=== PATIENT | male | born 1965 | race Hispanic/Latino ===

== ENCOUNTER 2019-05-19 10:48 | Inpatient (IN) | payer MEDICARE ==
[~2019-05-19] VITALS: Ht 165.1 cm; Wt 108.5 kg
[2019-05-19] VITALS (10 sets, daily range): BP systolic 94–112; BP diastolic 48–91
--- OUTSIDE RECORDS SUMMARY | 2019-05-19 10:54 | XMS REPORT | Continuity of Care Document ---
Author Author [employer] Organization [employer] Address Unknown Phone Unavailable Care Team Providers Care Internal Affairs Commander Name Role Phone [employer] Unavailable Unavailable Problems Problem Status Onset Date Classification Date Reported Comments Source FOOT PAIN Active 01/20/[address] [facility] SEPSIS,CELLULITIS,TYPE II DIABETES MELLI Active 01/20/[address] [facility] DEHYDRATION, DIABETIC KETOSIS, DIABETIC Active 09/14/[address] [facility] VOMITING Active 09/14/[address] [facility] RIGHT FOOT-STUMP INFECTION, R/O SPESIS Active 06/16/[address] [facility] ABSCESS Active 06/16/[address] [facility] INJURY IN LEFT SHOULDER Active 02/21/[address] [facility] R DIABETIC FOOT ULCER Active 02/21/[address] [facility] Discharge Diagnosis: Ankle sprain 12/28/2015 01/01/[address] [facility] ACUTE FOOT INFECTION Active 04/26/[address] [facility] FOOT OSTEOMYLITIS Active 04/09/[address] [facility] RIGHT FOOT CELLULITIS AND OSTEOMVELITIS Active 04/01/[address] [facility] INFECTION RIGHT FOOT Active 04/01/[address] [facility] OSTEROMYELITIS Active 02/06/[address] [facility] MRSA1, 2, 3 Active 01/31/2013 Problem 02/02/2017 04/20/14 ongoing ulceration of a right foot wound. MRSA from the abscess on the Right foot Problem added by Discern Expert. [facility] MRSA1, 2 Active 01/31/2013 Problem 03/11/2013 1MRSA from the abscess on the Right foot 2Problem added by Discern Expert. [facility] DIABETIC FOOT Active 01/28/[address] [facility] CUT ON FOOT Active 01/28/[address] [facility] Diabetes Resolved Problem 05/06/[address] [facility] Pseudomonas4 Active Problem 02/02/2017 Problem added by Discern Expert. [facility] Diabetes Active Problem 02/02/[address] [facility] Hypertension Resolved Problem 02/02/[address] [facility] Diabetic foot ulcer Active Diagnosis 03/08/2017 [id number] Osteomyelitis of left foot, unspecified type Active Diagnosis 03/08/2017 [id number] BENIGN HTN Active Problem 03/08/2017 [id number] MSSA Active Diagnosis 03/08/2017 [id number] PVD Active Diagnosis 03/08/2017 [id number] Rash Active Diagnosis 03/08/2017 [id number] Ulcer of other part of foot Active Problem 10/14/2015 [facility] Diabetes II with Neuropathy Active Problem 10/14/2015 [facility] Diabetes II with PVD Active Problem 10/14/2015 [facility] Abscess - Foot/Heel Active Problem 10/14/2015 [facility] Type 2 diabetes mellitus with diabetic peripheral angiopathy without gangrene Active Problem 10/14/2015 [facility] Type 2 diabetes mellitus with diabetic polyneuropathy Active Problem 10/14/2015 [facility] Type 2 diabetes mellitus with foot ulcer Active Problem 10/14/2015 [facility] Abscess of foot without toes, right Active Problem 10/14/2015 [facility] Osteomyelitis - Acute Active Problem 10/14/2015 [facility] Amputation at midfoot, right, subsequent encounter Active Problem 10/14/2015 [facility] Foot ulceration, right, with fat layer exposed Active Problem 10/14/2015 [facility] Obesity Morbid Active Diagnosis 06/08/2015 Ayla Fletcher S/P transmetatarsal amputation of foot Active Diagnosis 06/08/2015 Ayla Fletcher Body Mass Index 50.0-59.9, adult Active Diagnosis 06/08/2015 Ayla Fletcher Diabetes with peripheral circulatory disorders, type II or unspecified type, uncontrolled Active Problem 06/08/2015 Ayla Fletcher Osteomyelitis due to secondary diabetes Active Problem 06/08/2015 Ayla Fletcher ULCER OF LOWER LIMB NOS Active [facility] CELLULITIS OF FOOT Active [facility] TYPE 2 DIABETES MELLITUS WITH FOOT ULCER Active [facility] INFECTION OF OTHER EXTERNAL STOMA OF URI Active [facility] DEHYDRATION Active [facility] SEPSIS, UNSPECIFIED ORGANISM Active [facility] CELLULITIS, UNSPECIFIED Active [facility] Medications Medication Details Route Status Patient Instructions Ordering Provider Order Date Source Triamcinolone Acetonide 1 application to affected area Externally Active 0.1 % Externally Twice a day Hasan 02/28/2017 [id number] PredniSONE 1 tablet Orally Active 50 MG Orally Once a day Hasan 02/28/2017 [id number] Doxycycline Hyclate 1 capsule Orally Active 100 MG Orally every 12 hrs Hasan 02/14/2017 [id number] cefTRIAXone 2 g injection 2 gm, IV, Q24H, X 18 day, # 18 bag, 0 Refill(s), other Active 01/30/[address] [facility] insulin isophane (NPH) 100 units/mL human recombinant subcutaneous suspension 30 unit, SUB-Q, BID, # 20 mL, 3 Refill(s) Active 01/29/[address] [facility] Metformin hydrochloride 1000 MG Oral Tablet 1,000 mg, PO, BID, # 180 tab, 3 Refill(s) Active 01/29/[address] [facility] Acetaminophen 300 MG / Codeine Phosphate 30 MG Oral Tablet [Tylenol with Codeine #3] 1 tab, PO, Q6H, PRN Pain, X 5 day, # 20 tab, 0 Refill(s) Active 01/29/[address] [facility] Ceftriaxone 2 gm, Route: IVPB, [id number], Dosing Weight 116.932, kg, Start date: 01/26/17 17:00:00 CDT, Duration: 21 day, Stop date: 02/15/17 17:00:00 CDTNotes: (Same As: Rocephin). Use with 100 mL NS and infuse over 30 min MEDICATION WASTE Product Size: 2000 mg Product Wasted: ___ mg No Longer Active 01/26/[address] [facility] Streptococcus pneumoniae serotype 1 capsular antigen diphtheria [id number] protein conjugate vaccine / Streptococcus pneumoniae serotype 14 capsular antigen diphtheria [id number] protein conjugate vaccine / Streptococcus pneumoniae serotype 18C capsular antigen d 0.5 mL, Route: IM, Drug Form: INJ, Daily, Start date: 01/25/17 9:00:00 CDT, Stop date: 01/25/17 15:00:00 CDTNotes: Lightly roll vial (DO NOT SHAKE) before administration. (Same as: Prevnikki 13) Inactive 01/25/[address] [facility] Promethazine 6.25 mg, Route: IVPB, ONCE, Dosing Weight 116.932, kg, PRN Nausea & Vomiting, Start date: 01/24/17 9:14:00 CDT Inactive 01/24/[address] [facility] Ondansetron 4 mg, Route: IVP, ONCE, Dosing Weight 116.932, kg, PRN Nausea & Vomiting, Start date: 01/24/17 9:14:00 CDT Inactive 01/24/[address] [facility] Diphenhydramine 12.5 mg, Route: IVP, Drug form: INJ, Q6H, Dosing Weight 116.932, kg, PRN Itching, Start date: 01/24/17 9:14:00 CDT, Duration: 30 day, Stop date: 02/23/17 9:13:00 CDT Inactive 01/24/[address] [facility] Albuterol 0.83 MG/ML Inhalant Solution 2.49 mg, Route: NEB, Q20Min, Dosing Weight 116.932, kg, PRN Wheezing, Priority: STAT, Start date: 01/24/17 9:14:00 CDT, Duration: 30 day, Stop date: 02/23/17 9:13:00 CDT Inactive 01/24/[address] [facility] Naloxone 0.4 mg, Route: IVP, Q2MIN, Dosing Weight 116.932, kg, PRN Narcotic Reversal, Start date: 01/24/17 9:14:00 CDT, Duration: 8 doses or times, Stop date: Limited # of times Inactive 01/24/[address] [facility] Meperidine 12.5 mg, Route: IVP, Q30Min, Dosing Weight 116.932, kg, PRN Other -See Comment, For shivering, Start date: 01/24/17 9:14:00 CDT, Duration: 2 doses or times, Stop date: Limited # of times Inactive 01/24/[address] [facility] esmolol 10 mg, Route: IVP, Q5Min, Dosing Weight 116.932, kg, PRN Other -See Comment, Start date: 01/24/17 9:14:00 CDT, Duration: 5 doses or times, Stop date: Limited # of times Inactive 01/24/[address] [facility] Labetalol 10 mg, Route: IVP, Q5Min, Dosing Weight 116.932, kg, PRN Elevated BP, Start date: 01/24/17 9:14:00 CDT, Duration: 5 doses or times, Stop date: Limited # of times Inactive 01/24/[address] [facility] Oxycodone 5 mg, Route: PO, Drug form: TAB, Q4H, Dosing Weight 116.932, kg, PRN Pain Score 4-6, Start date: 01/24/17 9:14:00 CDT, Duration: 30 day, Stop date: 02/23/17 9:13:00 CDT Inactive 01/24/[address] [facility] Acetaminophen 1,000 mg, Route: PO, Drug form: TAB, ONCE, Dosing Weight 116.932, kg, PRN Pain Score 1-3, Start date: 01/24/17 9:14:00 CDT, Duration: 1 doses or times, Stop date: Limited # of times Inactive 01/24/[address] [facility] Hydromorphone 0.5 mg, Route: IVP, Q5Min, Dosing Weight 116.932, kg, PRN Pain Score 7-10, Start date: 01/24/17 9:14:00 CDT, Duration: 4 doses or times, Stop date: Limited # of times Inactive 01/24/[address] [facility] Flumazenil 0.2 mg, Route: IVP, PRN, Dosing Weight 116.932, kg, PRN Benzodiazepine Reversal, Initial dose, Start date: 01/24/17 9:14:00 CDT, Duration: 30 day, Stop date: 02/23/17 9:13:00 CDT Inactive 01/24/[address] [facility] Hydralazine 10 mg, Route: IVP, Q20Min, Dosing Weight 116.932, kg, PRN Elevated BP, Start date: 01/24/17 9:14:00 CDT, Duration: 2 doses or times, Stop date: Limited # of times Inactive 01/24/[address] [facility] Calcium Chloride 0.0014 MEQ/ML / Potassium Chloride 0.004 MEQ/ML / Sodium Chloride 0.103 MEQ/ML / Sodium Lactate 0.028 MEQ/ML Injectable Solution 1,000 mL, Rate: 125 ml/hr, Infuse over: 8 hr, Route: IV, Dosing Weight 116.932 kg, Total Volume: 1,000, Start date: 01/24/17 9:14:00 CDT, Duration: 30 day, Stop date: 02/23/17 9:13:00 CDT Inactive 01/24/[address] [facility] diphenhydrAMINE (ANES) Route: IV, Drug form: INJ, ONCE, Stop date: 01/24/17 9:06:00 CDT Inactive 01/24/[address] [facility] fentaNYL (ANES) Route: IV, Drug form: INJ, ONCE, Stop date: 01/24/17 9:01:00 CDT Inactive 01/24/[address] [facility] famotidine (ANES) Route: IV, Drug form: INJ, ONCE, Stop date: 01/24/17 9:01:00 CDT Inactive 01/24/[address] [facility] metoclopramide (ANES) Route: IV, Drug form: INJ, ONCE, Stop date: 01/24/17 9:01:00 CDT Inactive 01/24/[address] [facility] ondansetron (ANES) Route: IV, Drug form: INJ, ONCE, Stop date: 01/24/17 9:01:00 CDT Inactive 01/24/[address] [facility] insulin, isophane 30 unit, 0.3 mL, Route: SUB-Q, Drug form: INJ, BID, Dosing Weight 113.636, kg, Start date: 01/24/17 9:00:00 CDT, Duration: 30 day, Stop date: 02/22/17 17:00:00 CDTNotes: Roll in palms of hands gently; Do not shake vigorously. (Same as: NovoLIN N, Humulin N) Do not hold insulin without contacting prescriber "single patient use only" WASTE: F/P - Black; E - Municipal Trash Bin Stable for 14 days at room temperature Expires in days from Date No Longer Active 01/24/[address] [facility] midazolam (ANES) Route: IV, Drug form: SOLN, ONCE, Stop date: 01/24/17 8:46:00 CDT Inactive 01/24/[address] [facility] Insulin regular 3 unit, Route: IVP, ONCE, Dosing Weight 116.932, kg, Start date: 01/24/17 7:48:00 CDT, Stop date: 01/24/17 7:48:00 CDT Inactive 01/24/[address] [facility] Albuterol 0.833 MG/ML / Ipratropium [place] 0.167 MG/ML Inhalant Solution 3 mL, Route: NEB, Dosing Weight 116.932, kg, ONCE, STAT, Start date: 01/24/17 7:23:00 CDT, Stop date: 01/24/17 7:23:00 CDT Inactive 01/24/[address] [facility] Calcium Chloride 0.0014 MEQ/ML / Potassium Chloride 0.004 MEQ/ML / Sodium Chloride 0.103 MEQ/ML / Sodium Lactate 0.028 MEQ/ML Injectable Solution 1,000 mL, Rate: 25 ml/hr, Infuse over: 40 hr, Route: IV, Dosing Weight 116.932 kg, Total Volume: 1,000, Start date: 01/24/17 7:23:00 CDT, Duration: 30 day, Stop date: 02/23/17 7:22:00 CDT Inactive 01/24/[address] [facility] LR 1000 mL INJ (ANES) Route: IV, Total Volume: 1,000, Start date: 01/24/17 7:15:00 CDT, Stop date: 01/24/17 8:15:00 CDT Inactive 01/24/[address] [facility] Insulin regular 3 unit, Route: IVP, ONCE, Dosing Weight 116.932, kg, Start date: 01/24/17 7:12:00 CDT, Stop date: 01/24/17 7:12:00 CDT Inactive 01/24/[address] [facility] insulin, isophane 25 unit, 0.25 mL, Route: SUB-Q, Drug form: INJ, BID, Dosing Weight 113.636, kg, Start date: 01/21/17 17:00:00 CDT, Duration: 30 day, Stop date: 02/20/17 9:00:00 CDTNotes: Roll in palms of hands gently; Do not shake vigorously. (Same as: NovoLIN N, Humulin N) Do not hold insulin without contacting prescriber "single patient use only" WASTE: F/P - Black; E - Municipal Trash Bin Stable for 14 days at room temperature Expires in days from Date No Longer Active 01/21/[address] [facility] Insulin, Aspart, Human 4 unit, 0.04 mL, Route: SUB-Q, Drug form: SOLN, Bedtime, Dosing Weight 116.932, kg, PRN Blood Glucose Results, Start date: 01/21/17 10:37:00 CDT, Duration: 30 day, Stop date: 02/20/17 10:36:00 CDTNotes: Roll in palms of hands gently; Do not shake vigorously. (Same as: NovoLOG) "single patient use only" WASTE: F/P - Black; E - Municipal Trash Bin Stable for 28 days at room temperature. Expires in days from Date No Longer Active 01/21/[address] [facility] Dextrose 50% Syringe 25 gm, 50 mL, Route: IVP, Drug Form: INJ, Dosing Weight 116.932, kg, PRN, PRN Blood Glucose Results, Start date: 01/21/17 10:37:00 CDT, Duration: 30 day, Stop date: 02/20/17 10:36:00 CDT No Longer Active 01/21/[address] [facility] Glucagon 1 mg, Route: IM, Drug form: PDR/INJ, PRN, Dosing Weight 116.932, kg, PRN Blood Glucose Results, Start date: 01/21/17 10:37:00 CDT, Duration: 30 day, Stop date: 02/20/17 10:36:00 CDT No Longer Active 01/21/[address] [facility] insulin, isophane 10 unit, 0.1 mL, Route: SUB-Q, Drug form: INJ, BID, Dosing Weight 113.636, kg, Start date: 01/21/17 9:00:00 CDT, Duration: 30 day, Stop date: 02/19/17 17:00:00 CDTNotes: Roll in palms of hands gently; Do not shake vigorously. (Same as: NovoLIN N, Humulin N) Do not hold insulin without contacting prescriber "single patient use only" WASTE: F/P - Black; E - Municipal Trash Bin Stable for 14 days at room temperature Expires in days from Date Inactive 01/21/[address] [facility] pneumococcal capsular polysaccharide type 1 vaccine / pneumococcal capsular polysaccharide type 10A vaccine / pneumococcal capsular polysaccharide type 11A vaccine / pneumococcal capsular polysaccharide type 12F vaccine / pneumococcal capsular polysacchar 0.5 mL, Route: IM, Daily, Start date: 01/21/17 9:00:00 CDT, Duration: 1 doses or times, Stop date: 01/21/17 9:00:00 CDT No Longer Active 01/21/[address] [facility] Amlodipine 10 mg, 2 tab, Route: PO, Drug form: TAB, Daily, Dosing Weight 113.636, kg, Start date: 01/21/17 9:00:00 CDT, Duration: 30 day, Stop date: 02/19/17 9:00:00 CDTNotes: (Same as: Norvasc) No Longer Active 01/21/[address] [facility] Clindamycin 600 mg, 50 mL, Route: IVPB, Drug form: INJ, [id number], Dosing Weight 116.932, kg, Start date: 01/20/17 22:00:00 [employer], Duration: 30 day, Stop date: 02/19/17 14:00:00 CDT No Longer Active 01/21/[address] [facility] Lovenox 40 mg, 0.4 mL, Route: SUB-Q, Drug form: INJ, [id number], Dosing Weight 113.636, kg, Start date: 01/20/17 19:00:00 [employer], Duration: 30 day, Stop date: 02/18/17 19:00:00 CDTNotes: (Same as: Lovenox) No Longer Active 01/21/[address] [facility] cefepime 1 gm, Route: IVPB, [id number], Dosing Weight 113.636, kg, (CrCl >/=50 ml/min), Start date: 01/20/17 19:00:00 [employer], Duration: 30 day, Stop date: 02/19/17 11:00:00 CDTNotes: (Same As: Maxipime) MEDICATION WASTE Product Size: 1000 mg Product Wasted: ___ mg Inactive 01/21/[address] [facility] sodium chloride 0.9% 1000 ml INJ 1,000 mL 1,000 mL, Rate: 100 ml/hr, Infuse over: 10 hr, Route: IV, Dosing Weight 113.636 kg, Total Volume: 1,000, Start date: 01/20/17 18:26:00 [employer], Duration: 30 day, Stop date: 02/19/17 18:25:00 CDT No Longer Active 01/21/[address] [facility] Insulin, Aspart, Human 2 unit, 0.02 mL, Route: SUB-Q, Drug form: SOLN, TID-Before Meals, Dosing Weight 113.636, kg, PRN Blood Glucose Results, Start date: 01/20/17 18:25:00 [employer], Duration: 30 day, Stop date: 02/19/17 18:24:00 CDTNotes: Roll in palms of hands gently; Do not shake vigorously. (Same as: NovoLOG) "single patient use only" WASTE: F/P - Black; E - Municipal Trash Bin Stable for 28 days at room temperature. Expires in days from Date No Longer Active 01/21/[address] [facility] Glucagon 1 mg, Route: IM, Drug form: PDR/INJ, PRN, Dosing Weight 113.636, kg, PRN Blood Glucose Results, Start date: 01/20/17 18:25:00 [employer], Duration: 30 day, Stop date: 02/19/17 19:24:00 CDT No Longer Active 01/21/[address] [facility] Dextrose 50% Syringe 12.5 gm, 25 mL, Route: IVP, Drug Form: INJ, Dosing Weight 113.636, kg, PRN, PRN Blood Glucose Results, Start date: 01/20/17 18:25:00 [employer], Duration: 30 day, Stop date: 02/19/17 19:24:00 CDT No Longer Active 01/21/[address] [facility] Acetaminophen 650 mg, 2 tab, Route: PO, Drug form: TAB, Q4H, Dosing Weight 113.636, kg, PRN Pain 1-3/Temp > 100.4 F, Start date: 01/20/17 18:23:00 [employer], Duration: 30 day, Stop date: 02/19/17 18:22:00 CDTNotes: Do not exceed 4 gm/day. (Same as: Tylenol) No Longer Active 01/21/[address] [facility] Acetaminophen 325 MG / Hydrocodone Bitartrate 5 MG Oral Tablet 1 tab, Route: PO, Drug Form: TAB, Dosing Weight 113.636, kg, Q4H, PRN Pain Score 4-6, Start date: 01/20/17 18:23:00 [employer], Duration: 30 day, Stop date: 02/19/17 18:22:00 CDTNotes: (Same as: [place] 325/5) Do not exceed 4gm/day of acetaminophen. No Longer Active 01/21/[address] [facility] Ondansetron 4 mg, 2 mL, Route: IVP, Drug form: INJ, Q6H, Dosing Weight 113.636, kg, PRN Nausea & Vomiting, Start date: 01/20/17 18:23:00 [employer], Duration: 30 day, Stop date: 02/19/17 18:22:00 CDTNotes: (Same as: Zofran) MEDICATION WASTE Product Size: 4 mg Product Wasted: ___ mg No Longer Active 01/21/[address] [facility] Tylenol 650 mg, Route: PO, Drug form: TAB, ONCE, Dosing Weight 113.636, kg, Priority: STAT, Start date: 01/20/17 14:56:00 [employer], Stop date: 01/20/17 14:56:00 [employer] Inactive 01/20/[address] [facility] Vancomycin 2,000 mg, Route: IVPB, ONCE, Dosing Weight 115, kg, TIME CRITICAL MEDICATION, Priority: STAT, Start date: 01/20/17 14:55:00 [employer], Stop date: 01/20/17 14:55:00 [employer] Inactive 01/20/[address] [facility] Saline Flush 0.9% 10 mL, Route: IVP, Drug Form: INJ, Dosing Weight 113.636, kg, PRN, PRN Line Flush, Start date: 01/20/17 14:55:00 [employer], Duration: 30 day, Stop date: 02/19/17 15:54:00 CDTNotes: (Same as: BD Posiflush) Inactive 01/20/[address] [facility] Sodium Chloride 0.154 MEQ/ML Injectable Solution 3,450 mL, 2,000 ml/hr, Route: IV, ONCE, Priority: STAT, Dosing Weight 115 kg, Start date: 01/20/17 14:55:00 [employer], Duration: 1 doses or times, Stop date: 01/20/17 14:55:00 [employer] Inactive 01/20/[address] [facility] cefepime 2 gm, Route: IVPB, ABXQ8H, Dosing Weight 116.932, kg, (CrCl >/=50 ml/min, COP infection or neutropenic fever), Start date: 01/20/17 2:00:00 [employer], Duration: 30 day, Stop date: 02/18/17 18:00:00 CDTNotes: (Same as: Maxipime) MEDICATION WASTE Product Size: 2000 mg Product Wasted: ___ mg No Longer Active 01/20/[address] [facility] Lancets 1 box, MISC, Daily, # 1 box, 0 Refill(s) Active 09/20/[address] [facility] Syringes for Injection Misc/Other 1 ea, MISC, Daily, # 30 ea, 11 Refill(s) Active 09/20/[address] [facility] [employer] Blood Glucose Test Strips 1 ea, MISC, TID, Use for blood glucose monitoring., # 100 ea, Insulin dependent, Does not use insulin pump, Last DM eval date 09/20/16, 11 Refill(s) Active 09/20/[address] [facility] [place] for Injection Syringe Misc/Other 1 ea, MISC, Daily, # 30 ea, 11 Refill(s) Active 09/20/[address] [facility] insulin isophane (NPH) 100 units/mL human recombinant subcutaneous suspension 30 unit, SUB-Q, BID, # 20 mL, 3 Refill(s) Active 09/20/[address] [facility] amLODIPine 10 mg oral tablet 10 mg=1 tab, PO, Daily, # 90 tab, 3 Refill(s) Active 09/20/[address] [facility] Metronidazole 500 MG Oral Tablet 500 mg=1 tab, PO, Q8H, X 14 day, # 42 tab, 0 Refill(s) Active 09/20/[address] [facility] Metformin hydrochloride 1000 MG Oral Tablet 1,000 mg, PO, BID, # 180 tab, 3 Refill(s) Active 09/20/[address] [facility] ciprofloxacin 100 mg oral tablet 400 mg, PO, Q12H, for UTI, X 30 day, # 240 tab, 0 Refill(s) Active 09/20/[address] [facility] Flagyl 500 mg, 1 tab, Route: PO, Drug form: TAB, TID, Dosing Weight 115, kg, Start date: 09/20/16 9:00:00 [employer], Stop date: 10/04/16 9:00:00 CSTNotes: (Same as: Flagyl) Take with food/ avoid alcohol Inactive 09/20/[address] [facility] Amlodipine 5 mg, 1 tab, Route: PO, Drug form: TAB, Daily, Dosing Weight 115, kg, Start date: 09/20/16 9:00:00 [employer], Duration: 30 day, Stop date: 10/19/16 9:00:00 CSTNotes: (Same as: Norvasc) Inactive 09/20/[address] [facility] Tylenol 650 mg, 2 tab, Route: PO, Drug form: TAB, Q6H, Dosing Weight 115, kg, PRN Pain Score 1-3, Start date: 09/19/16 19:49:00 [employer], Duration: 30 day, Stop date: 10/19/16 19:48:00 CSTNotes: Do not exceed 4 gm/day. (Same as: Tylenol) No Longer Active 09/20/[address] [facility] insulin, isophane 30 unit, 0.3 mL, Route: SUB-Q, Drug form: INJ, BID, Dosing Weight 115, kg, Start date: 09/19/16 17:00:00 [employer], Duration: 30 day, Stop date: 10/19/16 9:00:00 CSTNotes: Roll in palms of hands gently; Do not shake vigorously. (Same as: NovoLIN N, Humulin N) Do not hold insulin without contacting prescriber "single patient use only" WASTE: F/P - Black; E - Municipal Trash Bin Stable for 14 days at room temperature Expires in days from Date No Longer Active 09/19/[address] [facility] Ciprofloxacin 400 mg, 200 mL, Route: IVPB, Drug form: INJ, [id number], Dosing Weight 115, kg, Start date: 09/19/16 16:00:00 [employer], Duration: 30 day, Stop date: 10/19/16 4:00:00 CSTNotes: Do not refrigerate No Longer Active 09/19/[address] [facility] Cefazolin 2 gm, 100 mL, Route: IVPB, Drug form: INJ, [id number], Dosing Weight 115, kg, Start date: 09/16/16 18:00:00 CDT, Duration: 30 day, Stop date: 10/16/16 14:00:00 CSTNotes: Same as: Ancef No Longer Active 09/16/[address] [facility] Atropine 0.5 mg, 5 mL, Route: IVP, Drug form: INJ, ONCE, Dosing Weight 115, kg, PRN Bradycardia, Start date: 09/16/16 0:13:00 CDT, Symptomatic bradycardia with a rate of No Longer Active 09/16/[address] [facility] Nitroglycerin 0.4 MG Sublingual Tablet 0.4 mg, 1 tab, Route: SL, Drug form: TAB, Q5Min, Dosing Weight 115, kg, PRN Chest Pain, Start date: 09/16/16 0:13:00 CDT, Duration: 3 doses or times, Stop date: Limited # of timesNotes: (Same as:Nitroquick, Nitrostat) "Do Not Crush" Sublingual tablet No Longer Active 09/16/[address] [facility] heparin 5,000 unit, 1 mL, Route: SUB-Q, Drug form: INJ, Q12H, Dosing Weight 115, kg, Start date: 09/15/16 21:00:00 CDT, Duration: 30 day, Stop date: 10/15/16 9:00:00 CSTNotes: porcine heparin No Longer Active 09/16/[address] [facility] Vancomycin 1,000 mg, Route: IVPB, [id number], Dosing Weight 115, kg, Start date: 09/15/16 19:00:00 CDT, Duration: 30 day, Stop date: 10/15/16 7:00:00 CSTNotes: TIME CRITICAL MEDICATION (Same As: Vancocin) Infusio n rate 2001 mg: infuse over 2.5 hours MEDICATION WASTE Product Size: 1000 mg Product Wasted: ___ mg No Longer Active 09/16/[address] [facility] lidocaine topical 2% gel with applicator 1 appl, Route: TOP, Drug Form: GEL, Dosing Weight 115, kg, ONCE, STAT, Start date: 09/15/16 17:23:00 CDT, Stop date: 09/15/16 17:23:00 CDTNotes: (Same as: Xylocaine Winsome Tapia) Inactive 09/15/[address] [facility] Humalog 8 unit, Route: SUB-Q, TID-Before Meals, Dosing Weight 115, kg, Start date: 09/15/16 16:30:00 CDT, Duration: 30 day, Stop date: 10/15/16 11:30:00 [employer] Inactive 09/15/[address] [facility] NovoLOG FlexPen 8 unit, 0.08 mL, Route: SUB-Q, Drug form: SOLN, TID-Before Meals, Start date: 09/15/16 16:30:00 CDT, Duration: 30 day, Stop date: 10/15/16 11:30:00 CSTNotes: Roll in palms of hands gently; Do not sh harpal vigorously. (Same as: NovoLOG) "single patient use only" WASTE: F/P - Black; E - Municipal Trash Bin Stable for 28 days at room temperature. Expires in days from Date No Longer Active 09/15/[address] [facility] Magnesium Sulfate 2 gm, 50 mL, Route: IVPB, Drug form: INJ, ONCE, Dosing Weight 115, kg, Start date: 09/15/16 9:23:00 CDT, Duration: 2 hr, Stop date: 09/15/16 9:23:00 CDTNotes: WASTE: F/P - Sink; E - Municipal Trash Bin Inactive 09/15/[address] [facility] Insulin, Aspart, Human 4 unit, 0.04 mL, Route: SUB-Q, Drug form: SOLN, Bedtime, Dosing Weight 115, kg, PRN Blood Glucose Results, Start date: 09/15/16 9:02:00 CDT, Duration: 30 day, Stop date: 10/15/16 9:01:00 CSTNotes: Roll in palms of hands gently; Do not shake vigorously. (Same as: NovoLOG) "single patient use only" WASTE: F/P - Black; E - Municipal Trash Bin Stable for 28 days at room temperature. Expires in days from Date No Longer Active 09/15/[address] [facility] Levemir 10 unit, 0.1 mL, Route: SUB-Q, Drug form: INJ, Daily, Dosing Weight 115, kg, Priority: NOW, Start date: 09/15/16 9:01:00 CDT, Duration: 30 day, Stop date: 10/15/16 9:00:00 CSTNotes: Same as Levemir Do not hold insulin without contacting prescriber WASTE: F/P - Black; E - Municipal Trash Bin "single patient use only" No Longer Active 09/15/[address] [facility] influenza virus vaccine, inactivated 0.5 mL, Route: IM, Drug Form: SUSP, Daily, Start date: 09/15/16 9:00:00 CDT, Duration: 1 doses or times, Stop date: 09/15/16 9:00:00 CDTNotes: (Same as: Fluzone Quadrivalent, Fluarix Quadrivalent) For 3 years of age and older (0.5 mL IM) Shake well before use Inactive 09/15/[address] [facility] pneumococcal capsular polysaccharide type 1 vaccine / pneumococcal capsular polysaccharide type 10A vaccine / pneumococcal capsular polysaccharide type 11A vaccine / pneumococcal capsular polysaccharide type 12F vaccine / pneumococcal capsular polysacchar 0.5 mL, Route: IM, Daily, Start date: 09/15/16 9:00:00 CDT, Duration: 1 doses or times, Stop date: 09/15/16 9:00:00 CDT Inactive 09/15/[address] [facility] Metformin 1,000 mg, PO, BID, 0 Refill(s) No Longer Active 09/15/[address] [facility] Calcium Gluconate 1,000 mg, 10 mL, Route: IVPB, ONCE, Dosing Weight 111.364, kg, Start date: 09/15/16 7:28:00 CDT, Stop date: 09/15/16 7:28:00 CDTNotes: WASTE: F/P - Sink; E - Municipal Trash Bin Inactive 09/15/[address] [facility] Insulin, Aspart, Human 5 unit, 0.05 mL, Route: SUB-Q, Drug form: SOLN, TID-Before Meals, Dosing Weight 111.364, kg, PRN Blood Glucose Results, Start date: 09/15/16 4:50:00 CDT, Duration: 30 day, Stop date: 10/15/16 4:49:00 CSTNotes: Roll in palms of hands gently; Do not shake vigorously. (Same as: NovoLOG) "single patient use only" WASTE: F/P - Black; E - Municipal Trash Bin Stable for 28 days at room temperature. Expires in days from Date Inactive 09/15/[address] [facility] Dextrose 50% Syringe 12.5 gm, 25 mL, Route: IVP, Drug Form: INJ, Dosing Weight 111.364, kg, PRN, PRN Blood Glucose Results, Start date: 09/15/16 4:50:00 CDT, Duration: 30 day, Stop date: 10/15/16 3:49:00 [employer] No Longer Active 09/15/[address] [facility] Glucagon 1 mg, Route: IM, Drug form: PDR/INJ, PRN, Dosing Weight 111.364, kg, PRN Blood Glucose Results, Start date: 09/15/16 4:50:00 CDT, Duration: 30 day, Stop date: 10/15/16 3:49:00 [employer] No Longer Active 09/15/[address] [facility] Sodium Chloride 0.154 MEQ/ML Injectable Solution 1,000 mL, Rate: 125 ml/hr, Infuse over: 8 hr, Route: IV, Dosing Weight 111.364 kg, Total Volume: 1,000, Start date: 09/15/16 4:32:00 CDT, Duration: 30 day, Stop date: 10/15/16 4:31:00 [employer] No Longer Active 09/15/[address] [facility] Saline Flush 0.9% 10 ml, Route: IVP, Drug Form: INJ, Dosing Weight 111.364, kg, PRN, PRN Line Flush, Start date: 09/15/16 4:32:00 CDT, Duration: 30 day, Stop date: 10/15/16 3:31:00 CSTNotes: (Same as: BD Posiflush) No Longer Active 09/15/[address] [facility] Vancomycin 1 gm, Route: IVPB, [id number], Dosing Weight 111.364, kg, Priority: STAT, Start date: 09/15/16 4:32:00 CDT, Duration: 30 day, Stop date: 10/14/16 18:00:00 CSTNotes: TIME CRITICAL MEDICATION (Same As: Vancocin) Infusion rate 2001 mg: infuse over 2.5 hours MEDICATION WASTE Product Size: 1000 mg Product Wasted: ___ mg Inactive 09/15/[address] [facility] Docusate 100 mg, 1 cap, Route: PO, Drug form: CAP, BID, Dosing Weight 111.364, kg, PRN Constipation, Start date: 09/15/16 4:32:00 CDT, Duration: 30 day, Stop date: 10/15/16 4:31:00 CSTNotes: (Same as: Colace) (Do Not Crush) No Longer Active 09/15/[address] [facility] Ondansetron 4 mg, 2 mL, Route: IVP, Drug form: INJ, Q6H, Dosing Weight 111.364, kg, PRN Nausea & Vomiting, Start date: 09/15/16 4:32:00 CDT, Duration: 30 day, Stop date: 10/15/16 4:31:00 CSTNotes: (Same as: Zofran) MEDICATION WASTE Product Size: 4 mg Product Wasted: ___ mg No Longer Active 09/15/[address] [facility] Sodium Chloride 0.154 MEQ/ML Injectable Solution 1,000 mL, 1,000 ml/hr, Infuse Over: 1 hr, Route: IV, 1,000, Drug form: INJ, ONCE, Priority: STAT, Dosing Weight 111.364 kg, Start date: 09/15/16 3:07:00 CDT, Duration: 1 doses or times, Stop date: 09/15/16 3:07:00 CDT Inactive 09/15/[address] [facility] potassium chloride 10 mEq, 100 mL, Route: IVPB, Drug form: INJ, Q1H, Dosing Weight 111.364, kg, Total Dose=20 meq, Start date: 09/15/16 3:00:00 CDT, Duration: 2 doses or times, Stop date: 09/15/16 4:00:00 CDT, Peripheral LineNotes: Infuse at a rate of 10 mEq/hr. (Same as: KCL) Inactive 09/15/[address] [facility] Sodium Chloride 0.154 MEQ/ML Injectable Solution 1,000 mL, 2,000 ml/hr, Infuse Over: 30 minutes, Route: IV, ONCE, Priority: STAT, Dosing Weight 111.364 kg, Start date: 09/15/16 2:30:00 CDT, Duration: 1 doses or times, Stop date: 09/15/16 2:30:00 CDT Inactive 09/15/[address] [facility] Aztreonam 1 gm, Route: IV, ONCE, Dosing Weight 111.364, kg, Start date: 09/15/16 2:29:00 CDT, Stop date: 09/15/16 2:29:00 CDTNotes: (Same As: Azactam) Inactive 09/15/[address] [facility] Vancomycin 2,000 mg, Route: IVPB, ONCE, Dosing Weight 111.364, kg, Priority: STAT, Start date: 09/15/16 2:29:00 CDT, Stop date: 09/15/16 2:29:00 CDTNotes: TIME CRITICAL MEDICATION (Same As: Vancocin) Infusion rate 2001 mg: infuse over 2.5 hours MEDICATION WASTE Product Size: 1000 mg Product Wasted: ___ mg Inactive 09/15/[address] [facility] Dextrose 50% Syringe 12.5 gm, 25 mL, Route: IVP, Drug Form: INJ, Dosing Weight 111.364, kg, PRN, PRN Blood Glucose Results, Start date: 09/15/16 1:41:00 CDT, Duration: 30 day, Stop date: 10/15/16 0:40:00 [employer] Inactive 09/15/[address] [facility] potassium chloride 20 mEq, Route: IVPB, ONCE, Dosing Weight 111.364, kg, Priority: STAT, Start date: 09/15/16 1:41:00 CDT, Stop date: 09/15/16 1:41:00 CDT Inactive 09/15/[address] [facility] Glucagon 1 mg, Route: IM, Drug form: PDR/INJ, PRN, Dosing Weight 111.364, kg, PRN Blood Glucose Results, Start date: 09/15/16 1:41:00 CDT, Duration: 30 day, Stop date: 10/15/16 0:40:00 [employer] Inactive 09/15/[address] [facility] Ondansetron 4 mg, Route: IVP, ONCE, Dosing Weight 111.364, kg, Priority: STAT, Start date: 09/15/16 1:41:00 CDT, Stop date: 09/15/16 1:41:00 CDT Inactive 09/15/[address] [facility] Insulin regular 5 unit, Route: IVP, ONCE, Dosing Weight 111.364, kg, Loading Dose, Priority: STAT, Start date: 09/15/16 1:41:00 CDT, Stop date: 09/15/16 1:41:00 CDT Inactive 09/15/[address] [facility] Saline Flush 0.9% 10 mL, Route: IVP, Drug Form: INJ, Dosing Weight 111.364, kg, PRN, PRN Line Flush, Start date: 09/15/16 1:41:00 CDT, Duration: 30 day, Stop date: 10/15/16 0:40:00 CSTNotes: (Same as: BD Posiflush) Inactive 09/15/[address] [facility] Sodium Chloride 0.154 MEQ/ML Injectable Solution 1,000 mL, 2,000 ml/hr, Infuse Over: 30 minutes, Route: IV, ONCE, Priority: STAT, Dosing Weight 111.364 kg, Start date: 09/15/16 1:27:00 CDT, Duration: 1 doses or times, Stop date: 09/15/16 1:27:00 CDT Inactive 09/15/[address] [facility] Ondansetron 4 mg, Route: IVP, Drug form: INJ, ONCE, Dosing Weight 111.364, kg, Priority: STAT, Start date: 09/15/16 0:46:00 CDT, Stop date: 09/15/16 0:46:00 CDT Inactive 09/15/[address] [facility] Metformin hydrochloride 1000 MG Oral Tablet 1,000 mg, PO, BID, # 60 tab, 0 Refill(s) Active 06/22/[address] [facility] [place] for Injection Syringe Misc/Other 1 ea, MISC, Daily, # 30 ea, 11 Refill(s) Active 06/22/[address] [facility] 3 ML insulin detemir 100 UNT/ML Prefilled Syringe [Levemir] 20 unit, SUB-Q, Bedtime, # 1 pen(s), 3 Refill(s) Active 06/22/[address] [facility] Cephalexin 500 MG Oral Capsule [Keflex] 500 mg=1 cap, PO, QID, X 10 day, # 40 cap, 0 Refill(s) Active 06/22/[address] [facility] amLODIPine 5 mg oral tablet 5 mg=1 tab, PO, Daily, # 30 tab, 0 Refill(s) Active 06/22/[address] [facility] Vancomycin 1,000 mg, Route: IVPB, [id number], Dosing Weight 111.534, kg, Start date: 06/20/16 23:00:00 CDT, Duration: 30 day, Stop date: 07/20/16 16:00:00 CDTNotes: TIME CRITICAL MEDICATION (Same As: Vancocin) Infusi on rate 2001 mg: infuse over 2.5 hours MEDICATION WASTE Product Size: 1000 mg Product Wasted: ___ mg No Longer Active 06/21/[address] [facility] Flagyl 500 mg, 100 mL, Route: IVPB, Drug form: INJ, ABXQ8H, Dosing Weight 111.534, kg, Start date: 06/20/16 17:00:00 CDT, Duration: 30 day, Stop date: 07/20/16 9:00:00 CDTNotes: (Same as: Flagyl) Avoid alcohol. No Longer Active 06/20/[address] [facility] cefepime 2 gm, Route: IVPB, [id number], Dosing Weight 111.534, kg, (CrCl >/=50 ml/min, COP infection or neutropenic fever), Start date: 06/20/16 17:00:00 CDT, Duration: 30 day, Stop date: 07/20/16 9:00:00 CDTNotes: (Same as: Maxipime) MEDICATION WASTE Product Size: 2000 mg Product Wasted: ___ mg No Longer Active 06/20/[address] [facility] NURSE: Please wait for vanco blood drawn before giving dose NURSE: Please wait for vanco blood drawn before giving dose, 1, Drug form: MISC, Route: MISC, ONCE, 06/20/16 1:30:00 CDT, Stop date: 06/20/16 1:30:00 CDT Inactive 06/20/[address] [facility] Levemir FlexPen 20 unit, 0.2 mL, Route: SUB-Q, Drug form: INJ, Bedtime, Start date: 06/19/16 21:00:00 CDT, Duration: 30 day, Stop date: 07/18/16 21:00:00 CDTNotes: Same as Levemir Do not hold insulin without contact ing prescriber WASTE: F/P - Black; E - Municipal Trash Bin "single patient use only" No Longer Active 06/20/[address] [facility] Levemir FlexPen 10 unit, 0.1 mL, Route: SUB-Q, Drug form: INJ, Bedtime, Start date: 06/18/16 21:00:00 CDT, Duration: 30 day, Stop date: 07/17/16 21:00:00 CDTNotes: Same as Levemir Do not hold insulin without contact ing prescriber WASTE: F/P - Black; E - Municipal Trash Bin "single patient use only" No Longer Active 06/19/[address] [facility] Insulin Glargine 100 UNT/ML Injectable Solution [Lantus] 10 unit, Route: SUB-Q, Bedtime, Dosing Weight 111.534, kg, Start date: 06/18/16 21:00:00 CDT, Duration: 30 day, Stop date: 07/17/16 21:00:00 CDT Inactive 06/19/[address] [facility] Amlodipine 5 mg, 1 tab, Route: PO, Drug form: TAB, Daily, Dosing Weight 111.534, kg, Priority: NOW, Start date: 06/18/16 15:13:00 CDT, Duration: 30 day, Stop date: 07/18/16 9:00:00 CDTNotes: (Same as: Norvasc) No Longer Active 06/18/[address] [facility] Insulin, Aspart, Human 1 unit, 0.01 mL, Route: SUB-Q, Drug form: SOLN, Bedtime, Dosing Weight 111.534, kg, PRN Blood Glucose Results, Start date: 06/17/16 20:34:00 CDT, Duration: 30 day, Stop date: 07/17/16 20:33:00 CDTNotes: Roll in palms of hands gently; Do not shake vigorously. (Same as: NovoLOG) "single patient use only" WASTE: F/P - Black; E - Municipal Trash Bin Stable for 28 days at room temperature. Expires in days from Date No Longer Active 06/18/[address] [facility] Metformin 1,000 mg, 2 tab, Route: PO, Drug form: TAB, BID, Dosing Weight 111.534, kg, Start date: 06/17/16 17:00:00 CDT, Duration: 30 day, Stop date: 07/17/16 9:00:00 CDTNotes: (Same as: Glucophage) Take with meal No Longer Active 06/17/[address] [facility] Vancomycin 1,000 mg, Route: IVPB, [id number], Dosing Weight 111.534, kg, Start date: 06/17/16 14:00:00 CDT, Duration: 30 day, Stop date: 07/17/16 2:00:00 CDTNotes: TIME CRITICAL MEDICATION (Same As: Vancocin) Infusi on rate 2001 mg: infuse over 2.5 hours MEDICATION WASTE Product Size: 1000 mg Product Wasted: ___ mg Inactive 06/17/[address] [facility] Lisinopril 10 mg, 1 tab, Route: PO, Drug form: TAB, Daily, Dosing Weight 111.534, kg, Start date: 06/17/16 12:00:00 CDT, Duration: 30 day, Stop date: 07/17/16 9:00:00 CDTNotes: (Same as: Prinivil Zestril) No Longer Active 06/17/[address] [facility] Acetaminophen 325 MG / Hydrocodone Bitartrate 10 MG Oral Tablet [Etna 10/325] 1 tab, Route: PO, Drug Form: TAB, Dosing Weight 111.534, kg, Q4H, PRN Pain Score 1-3, Start date: 06/17/16 9:45:00 CDT, Duration: 30 day, Stop date: 07/17/16 9:44:00 CDTNotes: Do not exceed 4gm/day of acetaminophen. (Same as: [place] 325/10) No Longer Active 06/17/[address] [facility] Atropine 0.5 mg, 5 mL, Route: IVP, Drug form: INJ, ONCE, Dosing Weight 109.091, kg, PRN Bradycardia, Start date: 06/17/16 3:43:00 CDT, Stop date: 06/17/16 3:43:00 CDT Inactive 06/17/[address] [facility] Nitroglycerin 0.4 mg, 1 tab, Route: SL, Drug form: TAB, Q5Min, Dosing Weight 109.091, kg, PRN Chest Pain, Start date: 06/17/16 3:42:00 CDT, Duration: 30 day, Stop date: 07/17/16 3:41:00 CDTNotes: (Same as:Nitroqukarli ck, Nitrostat) "Do Not Crush" Sublingual tablet No Longer Active 06/17/[address] [facility] Insulin, Aspart, Human 8 unit, 0.08 mL, Route: SUB-Q, Drug form: SOLN, TID-Before Meals, Dosing Weight 109.091, kg, PRN Blood Glucose Results, Start date: 06/17/16 3:16:00 CDT, Duration: 30 day, Stop date: 07/17/16 3:15:00 CDTNotes: Roll in palms of hands gently; Do not shake vigorously. (Same as: NovoLOG) "single patient use only" WASTE: F/P - Black; E - Municipal Trash Bin Stable for 28 days at room temperature. Expires in days from Date No Longer Active 06/17/[address] [facility] Dextrose 50% Syringe 12.5 gm, 25 mL, Route: IVP, Drug Form: INJ, Dosing Weight 109.091, kg, PRN, PRN Blood Glucose Results, Start date: 06/17/16 3:16:00 CDT, Duration: 30 day, Stop date: 07/17/16 3:15:00 CDT No Longer Active 06/17/[address] [facility] Glucagon 1 mg, Route: IM, Drug form: PDR/INJ, PRN, Dosing Weight 109.091, kg, PRN Blood Glucose Results, Start date: 06/17/16 3:16:00 CDT, Duration: 30 day, Stop date: 07/17/16 3:15:00 CDT No Longer Active 06/17/[address] [facility] Acetaminophen 650 mg, 2 tab, Route: PO, Drug form: TAB, Q4H, Dosing Weight 109.091, kg, PRN Pain 1-3/Temp > 100.4 F, Start date: 06/17/16 3:16:00 CDT, Duration: 30 day, Stop date: 07/17/16 3:15:00 CDTNotes: Do not exceed 4 gm/day. (Same as: Tylenol) No Longer Active 06/17/[address] [facility] Morphine 2 mg, 1 mL, Route: IVP, Drug form: INJ, Q4H, Dosing Weight 109.091, kg, PRN Pain Score 7-10, Start date: 06/17/16 3:16:00 CDT, Duration: 30 day, Stop date: 07/17/16 3:15:00 CDTNotes: (Same as:MORPhine Sulfate) No Longer Active 06/17/[address] [facility] Ondansetron 4 mg, 2 mL, Route: IVP, Drug form: INJ, Q6H, Dosing Weight 109.091, kg, PRN Nausea & Vomiting, Start date: 06/17/16 3:16:00 CDT, Duration: 30 day, Stop date: 07/17/16 3:15:00 CDTNotes: (Same as: Zofran) MEDICATION WASTE Product Size: 4 mg Product Wasted: ___ mg No Longer Active 06/17/[address] [facility] Sodium Chloride 0.154 MEQ/ML Injectable Solution 3,272.73 mL, 2,000 ml/hr, Route: IV, ONCE, Priority: STAT, Dosing Weight 109.091 kg, Start date: 06/17/16 1:30:00 CDT, Duration: 1 doses or times, Stop date: 06/17/16 1:30:00 CDT, Sepsis dose; round UP Only Inactive 06/17/[address] [facility] Aztreonam 2 gm, Route: IV, ONCE, Dosing Weight 109.091, kg, Priority: STAT, Start date: 06/17/16 1:30:00 CDT, Stop date: 06/17/16 1:30:00 CDTNotes: (Same As: Azactam) Inactive 06/17/[address] [facility] Vancomycin 2 gm, Route: IVPB, ONCE, Dosing Weight 109.091, kg, Priority: STAT, Start date: 06/17/16 1:11:00 CDT, Stop date: 06/17/16 1:11:00 CDTNotes: TIME CRITICAL MEDICATION (Same As: Vancocin) Infusion rate 2 001 mg: infuse over 2.5 hours MEDICATION WASTE Product Size: 1000 mg Product Wasted: ___ mg Inactive 06/17/[address] [facility] potassium chloride 40 mEq, 2 tab, Route: PO, Drug form: ERTAB, ONCE, Dosing Weight 93.295, kg, Start date: 02/25/16 8:52:00 CDT, Stop date: 02/25/16 8:52:00 CDTNotes: (Same as: K-Dur 20) "Do Not Crush" With food and full glass of water Inactive 02/25/[address] [facility] cefepime 1 g injection 1 gm, IV, Q12H, X 10 day, # 10 bag, 0 Refill(s) Active 02/25/[address] [facility] metroNIDAZOLE intravenous solution 500 dp=221 mL, IVPB, [id number], 0 Refill(s) Active 02/25/[address] [facility] vancomycin 1.5 g/250 mL-NaCl 0.9% intravenous solution 1.5 sx=493 mL, IVPB, [id number], 0 Refill(s) Active 02/25/[address] [facility] insulin detemir 100 units/mL subcutaneous solution 30 unit, SUB-Q, BID, 0 Refill(s) Active 02/25/[address] [facility] *RN-Wait for VANC trough draw @ 01:30 on 02/25/16 *RN- Wait for VANC trough draw @ 01:30 on 02/25/16 , ATTN:RN, Drug form: MISC, Route: MISC, ONCE, 02/25/16 1:00:00 CDT, Stop date: 02/25/16 1:00:00 CDT Inactive 02/25/[address] [facility] Saline Flush 0.9% 10 mL, Route: IVP, Drug Form: INJ, Dosing Weight 93.295, kg, Q8H, Start date: 02/24/16 16:00:00 CDT, Duration: 30 day, Stop date: 03/25/16 8:00:00 CDTNotes: (Same as: BD Posiflush) No Longer Active 02/24/[address] [facility] Lidocaine Hydrochloride 10 MG/ML Injectable Solution 5 mL, Route: INTRADERM, Drug Form: INJ, Dosing Weight 93.295, kg, ONCALL, Start date: 02/24/16 15:00:00 CDT, Duration: 30 day, Stop date: 03/25/16 14:59:00 CDTNotes: Preservative free. (Same as: Xylocaine MPF) No Longer Active 02/24/[address] [facility] Saline Flush 0.9% 10 mL, Route: IVP, Drug Form: INJ, Dosing Weight 93.295, kg, PRN, PRN Line Flush, Start date: 02/24/16 14:23:00 CDT, Duration: 30 day, Stop date: 03/25/16 14:22:00 CDTNotes: (Same as: BD Posiflush) No Longer Active 02/24/[address] [facility] Vancomycin 1.5 gm, 250 mL, Route: IVPB, Drug form: INJ, [id number], Dosing Weight 98.636, kg, Start date: 02/23/16 10:30:00 CDT, Duration: 30 day, Stop date: 03/24/16 2:00:00 CDTNotes: TIME CRITICAL MEDICATION Same as: Vancocin-NS (premixed) Infusion rate 2001 mg: infuse over 2.5 hours No Longer Active 02/23/[address] [facility] insulin detemir 30 unit, 0.3 mL, Route: SUB-Q, Drug form: INJ, BID, Dosing Weight 98.636, kg, Start date: 02/22/16 21:00:00 CDT, Duration: 30 day, Stop date: 03/23/16 9:00:00 CDTNotes: Same as Levemir Do not hold insulin without contacting prescriber WASTE: F/P - Black; E - Municipal Trash Bin "single patient use only" No Longer Active 02/23/[address] [facility] Please do not give Vanco prior to trough is collected Please do not give Vanco prior to trough is collected, Reminder, Drug form: MISC, Route: MISC, ONCE, 02/22/16 21:00:00 CDT, Stop date: 02/22/16 21:00:00 CDT Inactive 02/23/[address] [facility] Metformin 500 mg, 1 tab, Route: PO, Drug form: TAB, BID, Dosing Weight 98.636, kg, Start date: 02/22/16 9:00:00 CDT, Duration: 30 day, Stop date: 03/22/16 17:00:00 CDTNotes: (Same as: Glucophage) Take with meal No Longer Active 02/22/[address] [facility] Clindamycin 600 mg, 50 mL, Route: IVPB, Drug form: INJ, ABXQ8H, Dosing Weight 98.636, kg, Start date: 02/21/16 21:00:00 CDT, Duration: 30 day, Stop date: 03/22/16 13:00:00 CDT No Longer Active 02/22/[address] [facility] Vancomycin 1 gm, 250 ml/hr, Route: IV, Dosing Weight 98.636, kg, [id number], Start date: 02/21/16 21:00:00 CDT, Duration: 14 day, Stop date: 03/06/16 10:00:00 CDT, Pharmacy to doseNotes: TIME CRITICAL MEDICATION (Same As: Vancocin) Infusion rate 2001 mg: infuse over 2.5 hours MEDICATION WASTE Product Size: 1000 mg Product Wasted: ___ mg No Longer Active 02/22/[address] [facility] insulin detemir 30 unit, 0.3 mL, Route: SUB-Q, Drug form: INJ, Bedtime, Dosing Weight 98.636, kg, Start date: 02/21/16 21:00:00 CDT, Duration: 30 day, Stop date: 03/21/16 21:00:00 CDTNotes: Same as Levemir Do not hold insulin without contacting prescriber WASTE: F/P - Black; E - Municipal Trash Bin "single patient use only" No Longer Active 02/22/[address] [facility] Morphine 2 mg, 1 mL, Route: IVP, Drug form: INJ, Q4H, Dosing Weight 98.636, kg, PRN Pain Score 7-10, Start date: 02/21/16 17:42:00 CDT, Duration: 30 day, Stop date: 03/22/16 17:41:00 CDTNotes: (Same as:MORPhine Sulfate) No Longer Active 02/21/[address] [facility] Insulin, Aspart, Human 4 unit, 0.04 mL, Route: SUB-Q, Drug form: SOLN, Bedtime, Dosing Weight 98.636, kg, PRN Blood Glucose Results, Start date: 02/21/16 17:07:00 CDT, Duration: 30 day, Stop date: 03/22/16 17:06:00 CDTNotes: Roll in palms of hands gently; Do not shake vigorously. (Same as: NovoLOG) "single patient use only" WASTE: F/P - Black; E - Municipal Trash Bin Stable for 28 days at room temperature. Expires in days from Date No Longer Active 02/21/[address] [facility] Dextrose 50% Syringe 12.5 gm, 25 mL, Route: IVP, Drug Form: INJ, Dosing Weight 98.636, kg, PRN, PRN Blood Glucose Results, Start date: 02/21/16 17:07:00 CDT, Duration: 30 day, Stop date: 03/22/16 17:06:00 CDT No Longer Active 02/21/[address] [facility] Glucagon 1 mg, Route: IM, Drug form: PDR/INJ, PRN, Dosing Weight 98.636, kg, PRN Blood Glucose Results, Start date: 02/21/16 17:07:00 CDT, Duration: 30 day, Stop date: 03/22/16 17:06:00 CDT No Longer Active 02/21/[address] [facility] acetaminophen 325 mg oral tablet 650 mg, 2 tab, Route: PO, Drug form: TAB, Q6H, Dosing Weight 98.636, kg, PRN For Temp > 100.4 F, Start date: 02/21/16 17:05:00 CDT, Duration: 30 day, Stop date: 03/22/16 17:04:00 CDT, feverNotes: Do not exceed 4 gm/day. (Same as: Tylenol) No Longer Active 02/21/[address] [facility] Acetaminophen 325 MG / Hydrocodone Bitartrate 10 MG Oral Tablet [[place] 10/325] 1 tab, Route: PO, Drug Form: TAB, Dosing Weight 98.636, kg, Q4H, PRN Pain Score 1-3, Start date: 02/21/16 17:05:00 CDT, Duration: 30 day, Stop date: 03/22/16 17:04:00 CDTNotes: Do not exceed 4gm/day of acetaminophen. (Same as: [place] 325/10) No Longer Active 02/21/[address] [facility] Metronidazole 500 mg, 100 mL, Route: IVPB, Drug form: INJ, [id number], Dosing Weight 98.636, kg, Start date: 02/21/16 17:00:00 CDT, Duration: 30 day, Stop date: 03/22/16 13:00:00 CDTNotes: (Same as: Flagyl) Avoid alcohol. No Longer Active 02/21/[address] [facility] cefepime 1 gm, Route: IVPB, ABXQ8H, Dosing Weight 98.636, kg, (CrCl >/=50 ml/min), Start date: 02/21/16 17:00:00 CDT, Duration: 30 day, Stop date: 03/22/16 9:00:00 CDTNotes: (Same As: Maxipime) MEDICATION WASTE Product Size: 1000 mg Product Wasted: ___ mg No Longer Active 02/21/[address] [facility] Metformin 500 mg, PO, BID, 0 Refill(s) Active 02/21/[address] [facility] Clindamycin 600 mg, Route: IVPB, ABXQ8H, Dosing Weight 98.636, kg, Priority: STAT, Start date: 02/21/16 14:30:00 CDT, Duration: 30 day, Stop date: 03/22/16 6:30:00 CDT Inactive 02/21/[address] [facility] Insulin, Aspart, Human 8 unit, 0.08 mL, Route: SUB-Q, Drug form: SOLN, TID-Before Meals, Dosing Weight 98.636, kg, PRN Blood Glucose Results, Start date: 02/21/16 14:30:00 CDT, Duration: 30 day, Stop date: 03/22/16 14:29:00 CDTNotes: Roll in palms of hands gently; Do not shake vigorously. (Same as: NovoLOG) "single patient use only" WASTE: F/P - Black; E - Municipal Trash Bin Stable for 28 days at room temperature. Expires in days from Date Inactive 02/21/[address] [facility] Glucagon 1 mg, Route: IM, Drug form: PDR/INJ, PRN, Dosing Weight 98.636, kg, PRN Blood Glucose Results, Start date: 02/21/16 14:30:00 CDT, Duration: 30 day, Stop date: 03/22/16 14:29:00 CDT Inactive 02/21/[address] [facility] Dextrose 50% Syringe 25 gm, 50 mL, Route: IVP, Drug Form: INJ, Dosing Weight 98.636, kg, PRN, PRN Blood Glucose Results, Start date: 02/21/16 14:30:00 CDT, Duration: 30 day, Stop date: 03/22/16 14:29:00 CDT Inactive 02/21/[address] [facility] Clindamycin 600 mg, 50 mL, Route: IVPB, Drug form: INJ, ONCE, Dosing Weight 98.636, kg, Priority: STAT, Start date: 02/21/16 11:01:00 CDT, Stop date: 02/21/16 11:01:00 CDT Inactive 02/21/[address] [facility] Clindamycin 300 mg, PO, QID, 0 Refill(s) Inactive 02/21/[address] [facility] Sulfamethoxazole 800 MG / Trimethoprim 160 MG Oral Tablet 1 tab, PO, BID, 0 Refill(s) No Longer Active 02/21/[address] [facility] Morphine 4 mg, 2 mL, Route: IVP, Drug form: INJ, ONCE, Dosing Weight 98.636, kg, Priority: STAT, Start date: 02/21/16 7:20:00 CDT, Stop date: 02/21/16 7:20:00 CDTNotes: (Same as:MORPhine Sulfate) Inactive 02/21/[address] [facility] Sodium Chloride 0.154 MEQ/ML Injectable Solution 1,000 mL, 1,000 ml/hr, Infuse Over: 1 hr, Route: IV, 1,000, Drug form: INJ, ONCE, Priority: STAT, Dosing Weight 98.636 kg, Start date: 02/21/16 7:20:00 CDT, Duration: 1 doses or times, Stop date: 02/21/16 7:20:00 CDT Inactive 02/21/[address] [facility] Ondansetron 4 mg, 2 mL, Route: IVP, Drug form: INJ, ONCE, Dosing Weight 98.636, kg, Priority: STAT, Start date: 02/21/16 7:20:00 CDT, Stop date: 02/21/16 7:20:00 CDTNotes: (Same as: Deon) MEDICATION WASTE * Product Size: 4 mg Product Wasted: ___ mg Inactive 02/21/[address] [facility] Vancomycin 1 gm, Route: IVPB, ONCE, Dosing Weight 98.636, kg, Priority: STAT, Start date: 02/21/16 7:20:00 CDT, Stop date: 02/21/16 7:20:00 CDT, TIME CRITICAL MEDICATIONNotes: TIME CRITICAL MEDICATION (Same As: Vancocin) Infusion rate 2001 mg: infuse over 2.5 hours MEDICATION WASTE Product Size: 1000 mg Product Wasted: ___ mg Inactive 02/21/[address] [facility] Acetaminophen 300 MG / Codeine Phosphate 30 MG Oral Tablet [Tylenol with Codeine #3] 1 - 2 tab, PO, Q4H, PRN Pain, X 3 day, # 20 tab, 0 Refill(s) Active 12/29/[address] [facility] normal saline 0.9% IV 1,000 mL 1,000 mL, Rate: 100 ml/hr, Infuse over: 10 hr, Route: IV, Dosing Weight 99.091 kg, Total Volume: 1,000, Start date: 12/28/15 22:41:00, Duration: 30 day, Stop date: 01/27/16 22:40:00 No Longer Active 12/29/[address] [facility] Insulin regular 10 unit, 0.1 mL, Route: IVP, Drug form: INJ, ONCE, Dosing Weight 99.091, kg, Priority: STAT, Start date: 12/28/15 22:41:00, Stop date: 12/28/15 22:41:00Notes: (Same as: Humulin R and NovoLIN R) WASTE: F/P - Black; E - Municipal Trash Bin (Do not shake) No Longer Active 12/29/[address] [facility] Tylenol 975 mg, Route: PO, Drug form: TAB, ONCE, Dosing Weight 99.091, kg, Priority: STAT, Start date: 12/28/15 17:24:00, Stop date: 12/28/15 17:24:00 Inactive 12/28/[address] [facility] Aspirin 1 tablet Orally Active 81 MG Orally Once a day Fang 06/04/2015 [facility] cefTRIAXone 2 g injection 2 gm, IV, Q24H, X 10 day, # 10 ea, 0 Refill(s) Active 05/03/[address] [facility] acetaminophen 325 mg oral tablet 650 mg=2 tab, PO, Q6H, PRN For Temp > 100.4 F, 0 Refill(s) Active 05/03/[address] [facility] Acetaminophen 325 MG / Hydrocodone Bitartrate 10 MG Oral Tablet [Etna 10/325] 1 tab, PO, Q4H, PRN Pain Score 1-3, 0 Refill(s) Active 05/03/[address] [facility] Sodium Hypochlorite 1.25 MG/ML Topical Solution TOP, Daily, 0 Refill(s) Active 05/03/[address] [facility] Morphine 2 mg=1 mL, IVP, Q4H, PRN Pain Score 4-6, 0 Refill(s) Active 05/03/[address] [facility] Metronidazole 500 MG Oral Tablet 500 mg=1 tab, PO, ABXQ8H, 0 Refill(s) Active 05/03/[address] [facility] insulin detemir 100 units/mL subcutaneous solution 30 unit, SUB-Q, Bedtime, 0 Refill(s) Active 05/03/[address] [facility] Insulin, Aspart, Human 10 unit, SUB-Q, TID-Before Meals, 0 Refill(s) Active 05/03/[address] [facility] glucagon recombinant 1 mg injection 1 mg, IM, PRN, PRN Blood Glucose Results, 0 Refill(s) Active 05/03/[address] [facility] Ancef 1 gm, Route: IVPB, ONCE, Dosing Weight 100, kg, Start date: 04/30/15 7:49:00, Duration: 1 doses or times, Stop date: 04/30/15 7:49:00 Inactive 04/30/[address] [facility] ferric oxide, saccharated 300 mg, 15 mL, Route: IVPB, Drug form: INJ, BID, Dosing Weight 100, kg, Start date: 04/30/15 1:15:00, Duration: 6 doses or times, Stop date: 05/02/15 5:00:00Notes: Each 5ml contains 100mg elemental iron. Mix with NS (Same as:Venofer) Administer IV only. MEDICATION WASTE Product Size: 100 mg Product Wasted: ___ mg No Longer Active 04/30/[address] [facility] potassium chloride 40 mEq, 2 tab, Route: PO, Drug form: ERTAB, Q4H, Dosing Weight 100, kg, Start date: 04/29/15 8:00:00, Duration: 3 doses or times, Stop date: 04/29/15 16:00:00Notes: (Same as: K-Dur 20) "Do Not Crush" With food and full glass of water Inactive 04/29/[address] [facility] Flagyl 500 mg, 1 tab, Route: PO, Drug form: TAB, ABXQ8H, Dosing Weight 100, kg, Start date: 04/29/15 0:00:00, Duration: 30 day, Stop date: 05/28/15 16:00:00Notes: (Same as: Flagyl) Take with food/ avoid alcohol No Longer Active 04/29/[address] [facility] Ceftriaxone 2 gm, Route: IVPB, [id number], Dosing Weight 100, kg, Start date: 04/29/15 0:00:00, Duration: 30 day, Stop date: 05/28/15 0:00:00Notes: (Same As: Rocephin). MEDICATION WASTE Product Size: 200 0 mg Product Wasted: ___ mg No Longer Active 04/29/[address] [facility] Dakins Quarter Strength Solution 1 appl, Route: TOP, Drug Form: SOLN, Dosing Weight 100, kg, Daily, Start date: 04/28/15 9:00:00, Duration: 30 day, Stop date: 05/27/15 9:00:00Notes: (Dakin's (0.125%=1/4 strength) 1000ml top SOLN) For external use only. Note: quarter strength=0.125% sodium hypochlorite. No Longer Active 04/28/[address] [facility] Levemir 30 unit, 0.3 mL, Route: SUB-Q, Drug form: INJ, Bedtime, Dosing Weight 109.091, kg, Start date: 04/27/15 21:00:00, Duration: 30 day, Stop date: 05/26/15 21:00:00Notes: Same as Levemir Do not hold insulin without contacting prescriber "single patient use only" No Longer Active 04/28/[address] [facility] Morphine 2 mg, 1 mL, Route: IVP, Drug form: INJ, Q4H, Dosing Weight 100, kg, PRN Pain Score 4-6, Start date: 04/27/15 7:16:00, Duration: 30 day, Stop date: 05/27/15 7:15:00Notes: (Same as:MORPhine Sulfate) No Longer Active 04/27/[address] [facility] Levemir 10 unit, 0.1 mL, Route: SUB-Q, Drug form: INJ, ONCE, Dosing Weight 100, kg, Start date: 04/27/15 6:41:00, Stop date: 04/27/15 6:41:00Notes: Same as Levemir Do not hold insulin without contacting prescriber "single patient use only" Inactive 04/27/[address] [facility] Acetaminophen 325 MG / Hydrocodone Bitartrate 10 MG Oral Tablet [Etna 10/325] 1 tab, Route: PO, Drug Form: TAB, Dosing Weight 100, kg, Q4H, PRN Pain Score 1-3, Start date: 04/27/15 5:35:00, Duration: 30 day, Stop date: 05/27/15 5:34:00Notes: Do not exceed 4gm/day of acetaminophen. (Same as: Etna 325/10) No Longer Active 04/27/[address] [facility] Acetaminophen 650 mg, 2 tab, Route: PO, Drug form: TAB, Q6H, Dosing Weight 100, kg, PRN For Temp > 100.4 F, Start date: 04/27/15 5:33:00, Duration: 30 day, Stop date: 05/27/15 5:32:00Notes: Do not exceed 4 gm/day. (Same as: Tylenol) No Longer Active 04/27/[address] [facility] meropenem 1,000 mg, Route: IV, Q8H, Dosing Weight 100, kg, Start date: 04/27/15 0:00:00, Duration: 30 day, Stop date: 05/26/15 16:00:00Notes: (Same as: Merrem) . MEDICATION WASTE Product Size: 1000 mg Product Wasted: ___ mg No Longer Active 04/27/[address] [facility] Clindamycin 900 mg, 6 mL, Route: IVPB, Q8H-06, Dosing Weight 100, kg, Start date: 04/26/15 22:00:00, Duration: 30 day, Stop date: 05/26/15 14:00:00Notes: (Same As: Cleocin) No Longer Active 04/27/[address] [facility] Levemir 30 unit, 0.3 mL, Route: SUB-Q, Drug form: INJ, Q12H, Dosing Weight 109.091, kg, Start date: 04/26/15 21:00:00, Duration: 30 day, Stop date: 05/26/15 9:00:00Notes: Same as Levemir Do not hold insulin rj ruggiero contacting prescriber "single patient use only" Inactive 04/27/[address] [facility] Vancomycin 750 mg, 150 mL, Route: IV, Drug form: INJ, Q8H- 05, Dosing Weight 100, kg, Start date: 04/26/15 21:00:00, Duration: 30 day, Stop date: 05/26/15 13:00:00Notes: TIME CRITICAL MEDICATION Same as: Vancocin Infusion rate 2001 mg: infuse over 2.5 hours No Longer Active 04/27/[address] [facility] Vancomycin 1,636.365 mg, Route: IVPB, ABXQ8H, Dosing Weight 109.091, kg, TIME CRITICAL MEDICATION, Start date: 04/26/15 20:00:00, Duration: 30 day, Stop date: 05/26/15 12:00:00 Inactive 04/27/[address] [facility] Glucagon 1 mg, Route: IM, Drug form: PDR/INJ, PRN, Dosing Weight 100, kg, PRN Blood Glucose Results, Priority: STAT, Start date: 04/26/15 19:48:00, Duration: 30 day, Stop date: 05/26/15 19:47:00 No Longer Active 04/27/[address] [facility] Dextrose 50% Syringe 25 gm, 50 mL, Route: IVP, Drug Form: INJ, Dosing Weight 100, kg, PRN, PRN Blood Glucose Results, Start date: 04/26/15 19:48:00, Duration: 30 day, Stop date: 05/26/15 19:47:00 No Longer Active 04/27/[address] [facility] Insulin, Aspart, Human 1 unit, 0.01 mL, Route: SUB-Q, Drug form: SOLN, Sliding Scale, Dosing Weight 100, kg, PRN Blood Glucose Results, Start date: 04/26/15 19:48:00, Duration: 30 day, Stop date: 05/26/15 19:47:00Notes: Roll in palms of hands gently; Do not shake vigorously. (Same as: NovoLOG) "single patient use only" Stable for 28 days at room temperature. Expires in days from Date Inactive 04/27/[address] [facility] Sodium Chloride 0.154 MEQ/ML Injectable Solution 1,000 mL, Rate: 125 ml/hr, Infuse over: 8 hr, Route: IV, Dosing Weight 100 kg, Total Volume: 1,000, Start date: 04/26/15 19:22:00, Duration: 30 day, Stop date: 05/26/15 19:21:00 No Longer Active 04/27/[address] [facility] Saline Flush 0.9% 10 ml, Route: IVP, Drug Form: INJ, Dosing Weight 100, kg, PRN, PRN Line Flush, Start date: 04/26/15 19:22:00, Duration: 30 day, Stop date: 05/26/15 19:21:00Notes: (Same as: BD Posiflush) No Longer Active 04/27/[address] [facility] NovoLog 10 unit, 0.1 mL, Route: SUB-Q, Drug form: SOLN, TID-Before Meals, Dosing Weight 109.091, kg, Start date: 04/26/15 16:30:00, Duration: 30 day, Stop date: 05/26/15 11:30:00Notes: Roll in palms of hands ge ntly; Do not shake vigorously. (Same as: NovoLOG) "single patient use only" Stable for 28 days at room temperature. Expires in days from Date No Longer Active 04/26/[address] [facility] Glucagon 1 mg, Route: IM, Drug form: PDR/INJ, PRN, Dosing Weight 109.091, kg, PRN Blood Glucose Results, Start date: 04/26/15 13:47:00, Duration: 30 day, Stop date: 05/26/15 13:46:00 No Longer Active 04/26/[address] [facility] Insulin, Aspart, Human 3 unit, 0.03 mL, Route: SUB-Q, Drug form: SOLN, TID-Before Meals, Dosing Weight 109.091, kg, PRN Blood Glucose Results, Start date: 04/26/15 13:47:00, Duration: 30 day, Stop date: 05/26/15 13:46:00Notes: Roll in palms of hands gently; Do not shake vigorously. (Same as: NovoLOG) "single patient use only" Stable for 28 days at room temperature. Expires in days from Date No Longer Active 04/26/[address] [facility] Dextrose 50% Syringe 25 gm, 50 mL, Route: IVP, Drug Form: INJ, Dosing Weight 109.091, kg, PRN, PRN Blood Glucose Results, Start date: 04/26/15 13:47:00, Duration: 30 day, Stop date: 05/26/15 13:46:00 No Longer Active 04/26/[address] [facility] Insulin regular 10 unit, 0.1 mL, Route: SUB-Q, Drug form: INJ, ONCE, Dosing Weight 109.091, kg, Priority: STAT, Start date: 04/26/15 13:41:00, Stop date: 04/26/15 13:41:00Notes: (Same as: Humulin R and NovoLIN R) (Do not shake) Inactive 04/26/[address] [facility] Aztreonam 1 gm, Route: IV, ONCE, Dosing Weight 109.091, kg, Start date: 04/26/15 12:19:00, Stop date: 04/26/15 12:19:00Notes: (Same As: Azactam) Inactive 04/26/[address] [facility] Vancomycin 1 gm, 200 mL, Route: IVPB, Drug form: INJ, ONCE, Dosing Weight 109.091, kg, Priority: STAT, Start date: 04/26/15 12:18:00, Stop date: 04/26/15 12:18:00Notes: TIME CRITICAL MEDICATION Inactive 04/26/[address] [facility] Sodium Chloride 0.154 MEQ/ML Injectable Solution 1,000 mL, 1000 ml/hr, Infuse Over: 1 hr, Route: IV, 1,000, Drug form: INJ, ONCE, Priority: STAT, Dosing Weight 109.091 kg, Start date: 04/26/15 10:37:00, Duration: 1 doses or times, Stop date: 04/26/15 10:37:00 Inactive 04/26/[address] [facility] Tylenol 650 mg, 2 tab, Route: PO, Drug form: TAB, ONCE, Dosing Weight 109.091, kg, Priority: STAT, Start date: 04/26/15 10:37:00, Stop date: 04/26/15 10:37:00Notes: Do not exceed 4 gm/day. (Same as: Tylenol) Inactive 04/26/[address] [facility] pneumococcal capsular polysaccharide type 1 vaccine / pneumococcal capsular polysaccharide type 10A vaccine / pneumococcal capsular polysaccharide type 11A vaccine / pneumococcal capsular polysaccharide type 12F vaccine / pneumococcal capsular polysacchar 0.5 ml, Route: IM, Drug Form: INJ, Daily, NOW, Start date: 05/09/14 10:33:00, Duration: 1 doses or times, Stop date: 05/09/14 10:33:00Notes: (Same as: Pneumovax 23) Refrigerate Inactive 05/09/[address] [facility] ciprofloxacin 500 mg oral tablet 500 mg=1 tab, PO, Q12H, # 14 tab, 0 Refill(s) Active 05/09/[address] [facility] Acetaminophen 325 MG / Hydrocodone Bitartrate 7.5 MG Oral Tablet [Etna 7.5/325] 1-2 tab, PO, Q4-6H, Pain, # 30 tab, 0 Refill(s) Active 05/09/[address] [facility] Vancomycin 750 mg, 150 mL, Route: IVPB, Drug form: SOLN, ABXQ8H, Dosing Weight 109.091, kg, Start date: 05/05/14 12:30:00, Duration: 30 day, Stop date: 06/04/14 4:30:00Notes: Same as: Vancocin No Longer Active 05/05/[address] [facility] insulin detemir 25 unit, 0.25 mL, Route: SUB-Q, Drug form: INJ, BID, Dosing Weight 109.091, kg, Start date: 05/05/14 9:00:00, Duration: 30 day, Stop date: 06/03/14 17:00:00Notes: Same as Levemir "single patient use only" No Longer Active 05/05/[address] [facility] Silver Sulfadiazine 10 MG/ML Topical Cream [Silvadene] 1 appl, Route: TOP, Daily, Drug form: CRM, Start date: 05/05/14 9:00:00, Duration: 30 day, Stop date: 06/03/14 9:00:00Notes: (Same as: Silvadene) No Longer Active 05/05/[address] [facility] Metformin hydrochloride 1000 MG Oral Tablet 1,000 mg, 2 tab, Route: PO, Drug form: TAB, BID-Meals, Dosing Weight 109.091, kg, Start date: 05/05/14 8:00:00, Duration: 30 day, Stop date: 06/03/14 17:00:00Notes: (Same as: Glucophage) Take with meal No Longer Active 05/05/[address] [facility] Glipizide 10 MG Oral Tablet 10 mg, 1 tab, Route: PO, Drug form: TAB, Before Breakfast, Dosing Weight 109.091, kg, Start date: 05/05/14 7:30:00, Duration: 30 day, Stop date: 06/03/14 7:30:00Notes: (Same as: Glucotrol) 30 min before meals. No Longer Active 05/05/[address] [facility] Flagyl 500 mg, 100 mL, Route: IVPB, Drug form: INJ, ABXQ8H, Dosing Weight 109.091, kg, Start date: 05/05/14 2:00:00, Duration: 30 day, Stop date: 06/03/14 18:00:00Notes: (Same as: Flagyl) Avoid alcohol. No Longer Active 05/05/[address] [facility] cefepime 2 gm, Route: IVPB, ABXQ8H, Dosing Weight 109.091, kg, (CrCl >/=50 ml/min, COP infection or neutropenic fever), Start date: 05/05/14 2:00:00, Duration: 30 day, Stop date: 06/03/14 18:00:00Notes: (Same as: Maxipime) No Longer Active 05/05/[address] [facility] Ciprofloxacin 500 mg, 1 tab, Route: PO, Drug form: TAB, Q12H, Dosing Weight 109.091, kg, Start date: 05/04/14 21:00:00, Duration: 30 day, Stop date: 06/03/14 9:00:00Notes: May interfere w/enteral feedings - Take 1 hr before or 2 hrs after antacids, dairy pdt & minerals. On empty stomach. No Longer Active 05/05/[address] [facility] Acetaminophen 325 MG / Hydrocodone Bitartrate 5 MG Oral Tablet [Etna 5/325] 2 tab, Route: PO, Drug Form: TAB, Dosing Weight 109.091, kg, Q6H, PRN Pain Score 4-6, Start date: 05/04/14 17:57:00, Duration: 30 day, Stop date: 06/03/14 17:56:00Notes: (Same as: Etna 325/5) Do not exceed 4gm/day of acetaminophen. No Longer Active 05/04/[address] [facility] Acetaminophen 325 MG / Hydrocodone Bitartrate 10 MG Oral Tablet 1 tab, Route: PO, Drug Form: TAB, Dosing Weight 109.091, kg, Q4H, PRN Pain Score 4-6, Start date: 05/04/14 13:12:00, Duration: 30 day, Stop date: 06/03/14 13:11:00Notes: Do not exceed 4gm/day of acetaminophen. (Same as: Etna 325/10) Inactive 05/04/[address] [facility] Morphine 2 mg, 1 mL, Route: IVP, Drug form: INJ, Q3H, Dosing Weight 109.091, kg, PRN Pain Score 7-10, Start date: 05/04/14 13:12:00, Duration: 30 day, Stop date: 06/03/14 13:11:00Notes: (Same as:MORPhine Sulfate) No Longer Active 05/04/[address] [facility] Acetaminophen 650 mg, 2 tab, Route: PO, Drug form: TAB, Q4H, Dosing Weight 109.091, kg, PRN Pain 1-3/Temp > 100.4 F, Start date: 05/04/14 13:12:00, Duration: 30 day, Stop date: 06/03/14 13:11:00Notes: Do not exceed 4 gm/day. (Same as: Tylenol) No Longer Active 05/04/[address] [facility] Acetaminophen 325 MG / Hydrocodone Bitartrate 5 MG Oral Tablet 1 tab, Route: PO, Drug Form: TAB, Dosing Weight 109.091, kg, Q4H, PRN Pain Score 1-3, Start date: 05/04/14 13:12:00, Duration: 30 day, Stop date: 06/03/14 13:11:00Notes: (Same as: Etna 325/5) Do not exceed 4gm/day of acetaminophen. No Longer Active 05/04/[address] [facility] Ondansetron 4 mg, 2 mL, Route: IVP, Drug form: INJ, Q8H, Dosing Weight 109.091, kg, PRN Nausea & Vomiting, Start date: 05/04/14 13:12:00, Duration: 30 day, Stop date: 06/03/14 13:11:00Notes: (Same as: Zofran) No Longer Active 05/04/[address] [facility] Docusate 100 mg, 1 cap, Route: PO, Drug form: CAP, BID, Dosing Weight 109.091, kg, PRN Constipation, Start date: 05/04/14 13:12:00, Duration: 30 day, Stop date: 06/03/14 13:11:00Notes: (Same as: Colace) (Do Not Crush) No Longer Active 05/04/[address] [facility] cefepime 1 gm, Route: IVPB, ONCE, Dosing Weight 109.091, kg, Priority: STAT, Start date: 05/04/14 11:58:00, Stop date: 05/04/14 11:58:00Notes: (Same As: Maxipime) Inactive 05/04/[address] [facility] Vancomycin 2,250 mg, Route: IVPB, ONCE, Dosing Weight 109.091, kg, Priority: STAT, Start date: 05/04/14 11:58:00, Stop date: 05/04/14 11:58:00Notes: (Same As: Vancocin) Inactive 05/04/[address] [facility] ciprofloxacin 500 mg oral tablet 500 mg=1 tab, PO, Q12H, # 20 tab, 0 Refill(s) No Longer Active 05/01/[address] [facility] DAPTOmycin + Sodium Chloride 0.9% IV 50 mL 670 mg, Route: IVPB, Drug form: INJ, Q24H, Dosing Weight 112.273, kg, Start date: 04/26/14 8:00:00, Duration: 30 day, Stop date: 05/25/14 8:00:00Notes: To be mixed with NS and run over 30min. (Same As: Cubicin) Restricted use to Infectious Disease Physicians. No Longer Active 04/26/[address] [facility] lisinopril 20 mg tablet take by oral route Active 20 by oral route Hasan 02/19/2013 [id number] metformin 1,000 mg tablet take by oral route Active 1,000 by oral route Hasan 02/19/2013 [id number] sterile water 2.2 mL, Route: IV, Drug Form: INJ, ONCE, Start date: 02/12/13 9:33:00, Stop date: 02/12/13 9:33:00 IV Active Asa 02/12/[address] [facility] alteplase 4 mg, 4 mL, Route: IV, Drug form: INJ, ONCE, Start date: 02/12/13 9:33:00, Stop date: 02/12/13 9:33:00 IV Active Asa 02/12/[address] [facility] Levaquin 500 mg, 100 mL, Route: IVPB, Drug form: INJ, Daily, Start date: 02/08/13 9:00:00, Duration: 30 day, Stop date: 04/08/13 9:00:00 IVPB No Longer Active Asa 02/08/[address] [facility] vancomycin 1.5 gm, 250 mL, Route: IVPB, Drug form: INJ, Daily, Dosing Weight 109.091, kg, Start date: 02/08/13 9:00:00, Duration: 30 day, Stop date: 04/08/13 9:00:00 IVPB No Longer Active Asa 02/08/[address] [facility] Prinivil 20 mg, 1 tab, Route: PO, Drug form: TAB, Daily, Dosing Weight 109.091, kg, Priority: Routine, Start date: 02/08/13 9:00:00, Duration: 30 day, Stop date: 03/09/13 9:00:00 PO No Longer Active Asa 02/08/[address] [facility] Levemir FlexPen 30 unit, 0.3 mL, Route: SUB-Q, Drug form: INJ, Daily, Start date: 02/08/13 9:00:00, Duration: 30 day, Stop date: 03/09/13 9:00:00 SUB-Q No Longer Active Asa 02/08/[address] [facility] Lovenox 40 mg, 0.4 mL, Route: SUB-Q, Drug form: INJ, [id number], Dosing Weight 109.091, kg, Start date: 02/07/13 16:00:00, Duration: 30 day, Stop date: 03/08/13 16:00:00 SUB-Q No Longer Active Asa 02/07/[address] [facility] cefepime + Sodium Chloride 0.9% IV 100 mL 2 gm, Route: IVPB, [id number], Dosing Weight 109.091, kg, (CrCl 30 - 49 ml/min, COP infection or neutropenic fever), Start date: 02/07/13 15:00:00, Duration: 30 day, Stop date: 03/09/13 3:00:00 IVPB No Longer Active Sarvat 02/07/[address] [facility] vancomycin 1.5 gm, 250 mL, Route: IVPB, Drug form: INJ, [id number], Dosing Weight 109.091, kg, Start date: 02/07/13 13:00:00, Duration: 30 day, Stop date: 03/09/13 1:00:00 IVPB No Longer Active Sarvat 02/07/[address] [facility] alteplase 2 mg, 2 mL, Route: IV, Drug form: INJ, ONCALL, Start date: 02/07/13 13:00:00, Duration: 1 day, Stop date: 02/08/13 12:59:00 IV No Longer Active [facility] 02/07/[address] [facility] NovoLog FlexPen 3 unit, 0.03 mL, Route: SUB-Q, Drug form: SOLN, Bedtime, Dosing Weight 109.091, kg, PRN Blood Glucose Results, Start date: 02/07/13 12:31:00, Duration: 30 day, Stop date: 03/09/13 12:30:00 SUB-Q No Longer Active Asa 02/07/[address] [facility] NovoLog FlexPen 2 unit, 0.02 mL, Route: SUB-Q, Drug form: SOLN, Bedtime, Dosing Weight 109.091, kg, PRN Blood Glucose Results, Start date: 02/07/13 12:30:00, Duration: 30 day, Stop date: 03/09/13 12:29:00 SUB-Q No Longer Active [facility] 02/07/[address] [facility] NovoLog FlexPen 6 unit, 0.06 mL, Route: SUB-Q, Drug form: SOLN, TID-Before Meals, Dosing Weight 109.091, kg, PRN Blood Glucose Results, Start date: 02/07/13 12:29:00, Duration: 30 day, Stop date: 03/09/13 12:28:00 SUB-Q No Longer Active [facility] 02/07/[address] [facility] glucagon 1 mg, Route: IM, Drug form: PDR/INJ, PRN, Dosing Weight 109.091, kg, PRN Blood Glucose Results, Start date: 02/07/13 12:28:00, Duration: 30 day, Stop date: 03/09/13 12:27:00 IM No Longer Active [facility] 02/07/[address] [facility] Benadryl 25 mg, 1 tab, Route: PO, Drug form: TAB, TID, Dosing Weight 109.091, kg, PRN Itching, Start date: 02/07/13 12:27:00, Duration: 30 day, Stop date: 03/09/13 12:26:00 PO No Longer Active [facility] 02/07/[address] [facility] Dextrose 50% Syringe 25 gm, 50 mL, Route: IVP, Drug Form: INJ, Dosing Weight 109.091, kg, PRN, PRN Blood Glucose Results, Start date: 02/07/13 12:27:00, Duration: 30 day, Stop date: 03/09/13 12:26:00 IVP No Longer Active [facility] 02/07/[address] [facility] Dextrose 50% Syringe 12.5 gm, 25 mL, Route: IVP, Drug Form: INJ, Dosing Weight 109.091, kg, PRN, PRN Blood Glucose Results, Start date: 02/07/13 12:23:00, Duration: 30 day, Stop date: 03/09/13 12:22:00 IVP No Longer Active [facility] 02/07/[address] [facility] acetaminophen-hydrocodone 325 mg-5 mg oral tablet 1 tab, Route: PO, Drug Form: TAB, Dosing Weight 109.091, kg, Q4H, PRN Pain Score 1-3, Start date: 02/07/13 11:43:00, Duration: 30 day, Stop date: 03/09/13 11:42:00 PO No Longer Active [facility] 02/07/[address] [facility] acetaminophen-hydrocodone 325 mg-10 mg oral tablet 1 tab, Route: PO, Drug Form: TAB, Dosing Weight 109.091, kg, Q4H, PRN Pain Score 4-6, Start date: 02/07/13 11:43:00, Duration: 30 day, Stop date: 03/09/13 11:42:00 PO No Longer Active [facility] 02/07/[address] [facility] Tylenol 650 mg, 20.3 mL, Route: PO, Drug form: LIQ, Q4H, Dosing Weight 109.091, kg, PRN Pain 1-3/Temp > 100.4 F, Start date: 02/07/13 11:43:00, Duration: 30 day, Stop date: 03/09/13 11:42:00 PO No Longer Active [facility] 02/07/[address] [facility] alteplase 2 mg, 2 mL, Route: IV, Drug form: INJ, ONCALL, Start date: 02/07/13 11:00:00, Duration: 1 day, Stop date: 02/08/13 10:59:00 IV No Longer Active [facility] 02/07/[address] [facility] alteplase 2 mg, 2 mL, Route: IV, Drug form: INJ, ONCE, Start date: 02/07/13 10:15:00, Stop date: 02/07/13 10:15:00 IV No Longer Active [facility] 02/07/[address] [facility] alteplase 2 mg, 2 mL, Route: IV, Drug form: INJ, ONCE, Start date: 02/07/13 10:12:00, Stop date: 02/07/13 10:12:00 IV No Longer Active [facility] 02/07/[address] [facility] acetaminophen-hydrocodone 325 mg-5 mg oral tablet 1 tab, PO, Q4H, PRN, 30 tab, Pain Score 1-3, Substitution Allowed, Maintenance, TAB PO Active [facility] 02/07/[address] [facility] metFORmin 1000 mg oral tablet 1,000 mg, 1 tab, PO, BID, 60 tab, Substitution Allowed PO Active [facility] 02/07/[address] [facility] lisinopril 20 mg oral tablet 20 mg, 1 tab, PO, Daily, 30 tab, Substitution Allowed, TAB PO Active [facility] 02/07/[address] [facility] Lactated Ringers Injection IV 1,000 mL 1,000 mL, Rate: 25 ml/hr, Infuse over: 40 hr, Route: IV, kg, Total Volume: 1,000, Start date: 02/05/13 11:21:00, Duration: 2 day, Stop date: 02/07/13 11:20:00 IV No Longer Active [facility] 02/05/[address] [facility] Benadryl 25 mg, 1 tab, Route: PO, Drug form: TAB, TID, Dosing Weight 109.091, kg, PRN Itching, Start date: 02/02/13 16:09:00, Duration: 30 day, Stop date: 03/04/13 16:08:00 PO No Longer Active [facility] 02/02/[address] [facility] cefepime + Sodium Chloride 0.9% IV 100 mL 2 gm, Route: IVPB, [id number], Dosing Weight 109.091, kg, (CrCl 30 - 49 ml/min, COP infection or neutropenic fever), Start date: 02/02/13 15:00:00, Duration: 30 day, Stop date: 03/04/13 3:00:00 IVPB No Longer Active [facility] 02/02/[address] [facility] Levemir FlexPen 10 unit, 0.1 mL, Route: SUB-Q, Drug form: INJ, ONCE, Dosing Weight 109.091, kg, Start date: 02/02/13 12:29:00, Stop date: 02/02/13 12:29:00 SUB-Q No Longer Active [facility] 02/02/[address] [facility] Levemir FlexPen 30 unit, 0.3 mL, Route: SUB-Q, Drug form: INJ, Daily, Start date: 02/02/13 9:00:00, Stop date: 03/03/13 9:00:00 SUB-Q No Longer Active [facility] 02/02/[address] [facility] enoxaparin 40 mg, 0.4 mL, Route: SUB-Q, Drug form: INJ, [id number], Dosing Weight 109.091, kg, Start date: 02/01/13 16:00:00, Duration: 30 day, Stop date: 03/02/13 16:00:00 SUB-Q No Longer Active [facility] 02/01/[address] [facility] cefepime + Sodium Chloride 0.9% IV 100 mL 1 gm, Route: IVPB, [id number], Dosing Weight 109.091, kg, (CrCl 30 - 49 ml/min), Start date: 02/01/13 16:00:00, Duration: 30 day, Stop date: 03/03/13 4:00:00 [facility] [facility] lisinopril 20 mg, 1 tab, Route: PO, Drug form: TAB, Daily, Dosing Weight 109.091, kg, Priority: NOW, Start date: 02/01/13 15:31:00, Stop date: 03/03/13 9:00:00 PO No Longer Active [facility] 02/01/[address] [facility] Levemir FlexPen 10 unit, 0.1 mL, Route: SUB-Q, Drug form: INJ, ONCE, Dosing Weight 109.091, kg, Start date: 02/01/13 15:24:00, Stop date: 02/01/13 15:24:00 SUB-Q No Longer Active [facility] 02/01/[address] [facility] Lantus 10 unit, Route: SUB-Q, Drug form: SOLN, Daily, Dosing Weight 109.091, kg, Priority: NOW, Start date: 02/01/13 15:21:00, Duration: 30 day, Stop date: 03/03/13 9:00:00 SUB-Q No Longer Active [facility] 02/01/[address] [facility] insulin aspart 6 unit, 0.06 mL, Route: SUB-Q, Drug form: SOLN, TID-Before Meals, Dosing Weight 109.091, kg, PRN Blood Glucose Results, Start date: 02/01/13 15:19:00, Duration: 30 day, Stop date: 03/03/13 15:18:00 SUB-Q No Longer Active [facility] 02/01/[address] [facility] glucagon 1 mg, Route: IM, Drug form: PDR/INJ, PRN, Dosing Weight 109.091, kg, PRN Blood Glucose Results, Start date: 02/01/13 15:19:00, Duration: 30 day, Stop date: 03/03/13 15:18:00 IM No Longer Active [facility] 02/01/[address] [facility] Dextrose 50% Syringe 25 gm, 50 mL, Route: IVP, Drug Form: INJ, Dosing Weight 109.091, kg, PRN, PRN Blood Glucose Results, Start date: 02/01/13 15:19:00, Duration: 30 day, Stop date: 03/03/13 15:18:00 IVP No Longer Active [facility] 02/01/[address] [facility] magnesium sulfate 2 gm, 50 mL, Route: IVPB, Drug form: INJ, ONCE, Dosing Weight 109.091, kg, Total dose=2 gm, Start date: 02/01/13 15:18:00, Duration: 1 doses or times, Stop date: 02/01/13 15:18:00 IVPB No Longer Active [facility] 02/01/[address] [facility] insulin glargine 10 unit, Route: SUB-Q, Daily, Dosing Weight 109.091, kg, Start date: 02/01/13 9:00:00, Duration: 30 day, Stop date: 03/02/13 9:00:00 SUB-Q No Longer Active [facility] 02/01/[address] [facility] Levemir FlexPen 10 unit, 0.1 mL, Route: SUB-Q, Drug form: INJ, Daily, Start date: 02/01/13 9:00:00, Duration: 30 day, Stop date: 03/02/13 9:00:00 SUB-Q No Longer Active [facility] 02/01/[address] [facility] vancomycin 1.5 gm, 250 mL, Route: IVPB, Drug form: INJ, [id number], Dosing Weight 109.091, kg, Start date: 02/01/13 0:00:00, Stop date: 03/02/13 12:00:00 IVPB No Longer Active [facility] 02/01/[address] [facility] clindamycin + Sodium Chloride 0.9% IV 100 mL 900 mg, 6 mL, Route: IVPB, [id number], Dosing Weight 109.091, kg, Start date: 01/31/13 23:00:00, Duration: 30 day, Stop date: 03/02/13 15:00:00 IVPB No Longer Active [facility] 02/01/[address] [facility] Cipro 400 mg, 200 mL, Route: IVPB, Drug form: INJ, [id number], Dosing Weight 109.091, kg, Start date: 01/31/13 23:00:00, Duration: 30 day, Stop date: 03/02/13 11:00:00 IVPB No Longer Active [facility] 02/01/[address] [facility] insulin aspart 1 unit, 0.01 mL, Route: SUB-Q, Drug form: SOLN, TID-Before Meals, Dosing Weight 109.091, kg, PRN Blood Glucose Results, Start date: 01/31/13 22:55:00, Duration: 30 day, Stop date: 03/02/13 22:54:00 SUB-Q No Longer Active [facility] 02/01/[address] [facility] Dextrose 50% Syringe 12.5 gm, 25 mL, Route: IVP, Drug Form: INJ, Dosing Weight 109.091, kg, PRN, PRN Blood Glucose Results, Start date: 01/31/13 22:55:00, Duration: 30 day, Stop date: 03/02/13 22:54:00 IVP No Longer Active [facility] 02/01/[address] [facility] glucagon 1 mg, Route: IM, Drug form: PDR/INJ, PRN, Dosing Weight 109.091, kg, PRN Blood Glucose Results, Start date: 01/31/13 22:55:00, Duration: 30 day, Stop date: 03/02/13 22:54:00 IM No Longer Active [facility] 02/01/[address] [facility] tetanus toxoid 0.5 ml, Route: IM, Drug Form: INJ, Dosing Weight 109.091, kg, ONCE, Start date: 01/31/13 22:54:00, Stop date: 01/31/13 22:54:00 IM No Longer Active [facility] 02/01/[address] [facility] ondansetron 4 mg, 2 mL, Route: IVP, Drug form: INJ, ONCE, Dosing Weight 109.091, kg, PRN Nausea & Vomiting, Start date: 01/31/13 22:54:00 IVP No Longer Active [facility] 02/01/[address] [facility] acetaminophen-hydrocodone 325 mg-5 mg oral tablet 1 tab, Route: PO, Drug Form: TAB, Dosing Weight 109.091, kg, Q4H, PRN Pain Score 1-3, Start date: 01/31/13 22:54:00, Duration: 30 day, Stop date: 03/02/13 22:53:00 PO No Longer Active [facility] 02/01/[address] [facility] acetaminophen-hydrocodone 325 mg-10 mg oral tablet 1 tab, Route: PO, Drug Form: TAB, Dosing Weight 109.091, kg, Q4H, PRN Pain Score 4-6, Start date: 01/31/13 22:54:00, Duration: 30 day, Stop date: 03/02/13 22:53:00 PO No Longer Active [facility] 02/01/[address] [facility] morphine Sulfate 2 mg, 1 mL, Route: IVP, Drug form: INJ, Q3H, Dosing Weight 109.091, kg, PRN Pain Score 7-10, Start date: 01/31/13 22:54:00, Duration: 30 day, Stop date: 03/02/13 22:53:00 IVP No Longer Active [place] 02/01/[address] [facility] acetaminophen 650 mg, 20.3 mL, Route: PO, Drug form: LIQ, Q4H, Dosing Weight 109.091, kg, PRN Pain 1-3/Temp > 100.4 F, Start date: 01/31/13 22:54:00, Duration: 30 day, Stop date: 03/02/13 22:53:00 PO No Longer Active [facility] 02/01/[address] [facility] clindamycin + Sodium Chloride 0.9% IV 100 mL 900 mg, 6 mL, Route: IVPB, Drug form: INJ, [id number], Dosing Weight 109.091, kg, Start date: 01/31/13 22:00:00, Duration: 30 day, Stop date: 03/02/13 14:00:00 IVPB No Longer Active [facility] 02/01/[address] [facility] Sodium Chloride 0.9% (Bolus) IV 1,000 mL 1,000 mL, Rate: 1,000 ml/hr, Infuse over: 1 hr, Route: IV, kg, Total Volume: 1,000, Priority: STAT, Start date: 01/31/13 21:08:00, Duration: 1 doses or times, Stop date: 01/31/13 22:07:00, Bolus DoseBolus Dose IV No Longer Active Joseph 02/01/[address] [facility] Insulin regular 10 unit, 0.1 mL, Route: IV, Drug form: INJ, ONCE, Dosing Weight 109.091, kg, Start date: 01/31/13 21:07:00, Stop date: 01/31/13 21:07:00 IV No Longer Active [facility] 02/01/[address] [facility] ciprofloxacin 400 mg, 200 mL, Route: IV, Drug form: INJ, ONCE, Dosing Weight 109.091, kg, Start date: 01/31/13 21:03:00, Stop date: 01/31/13 21:03:00 IV No Longer Active [facility] 02/01/[address] [facility] ibuprofen 200 mg oral tablet 400 mg, 2 tab, PO, Q4H, PRN, as needed for pain, Substitution Allowed PO Active 02/01/[address] [facility] metFORmin 500 mg oral tablet 500 mg, 1 tab, PO, BID, 30 tab, Substitution Allowed PO Active Bar 10/26/[address] [facility] clindamycin 300 mg oral capsule 300 mg, 1 cap, PO, QID, 40 cap, Substitution Allowed PO Active [facility] 10/26/[address] [facility] clindamycin 600 mg, Route: IM, ONCE, Priority: STAT, Start date: 10/26/11 11:20:00, Stop date: 10/26/11 11:20:00 IM No Longer Active [facility] 10/26/[address] [facility] clindamycin 600 mg, Route: IVPB, ONCE, Priority: STAT, Start date: 10/26/11 11:19:00, Stop date: 10/26/11 11:19:00 IVPB No Longer Active Dipika 10/26/[address] [facility] Triamcinolone Acetonide 1 application to affected area Externally Active 0.1 % Externally Twice a day Hasan [id number] Levemir Flexpen 30 init Subcutaneous Active 100 UNIT/ML Subcutaneous once every night [facility] Ayla Fletcher Vitamin C 1 tablet Orally Active 500 mg Orally daily [facility] Ayla Fletcher NovoLog Flexpen 20 unit Subcutaneous Active 100 UNIT/ML Subcutaneous before each meal [facility] Metformin HCl 1 tablet with meals Orally Active 500 MG Orally Twice a day [facility] Ayla Fletcher Zinc Sulfate 1 tablet by mouth Active 220 mg by mouth daily [facility] Ayla Fletcher Doxycycline Hyclate 1 tablet by mouth Active 100 mg by mouth Twice a day [facility] Ayla Fletcher Allergies, Adverse Reactions, Alerts Substance Category Reaction Severity Reaction type Status Date Reported Comments Source PCN - penicillin Adverse Reaction Info Not Available Adverse Reaction Active 06/04/2015 Ayla Fletcher penicillin Adverse Reaction Info Not Available Adverse Reaction Active 03/07/2017 [id number] Calcipotriene Adverse Reaction Info Not Available Adverse Reaction Active 03/07/2017 [id number] penicillins Assertion Drug allergy Active [facility] Immunizations Immunization Date Given Site Status Last Updated Comments Source pneumococcal 13-valent vaccine 01/25/2017 Not Given [facility] influenza virus vaccine, inactivated 09/15/2016 Right deltoid completed Shazia [facility] pneumococcal 23-valent vaccine 05/09/2014 Left deltoid completed Musa [facility] tetanus toxoid 02/01/2013 Left deltoid completed Renetta [facility] tetanus toxoid 02/01/2013 completed Renetta [facility] Hx influenza vaccine-unspecified<sup>1</sup> 09/22/2012 completed Fatoumata Admin Note: received at [facility] Hx influenza vaccine-unspecified<sup>1</sup> 09/22/2012 jerry Ham 1received at [facility] Results Order Name Results Value Reference Range Date Interpretation Comments Source CHEM PANEL eGFR 107 01/27/2017 Result Comment: The eGFR is calculated using the CKD-EPI formula. In most young, healthy individuals the eGFR will be >90 mL/min/1.73m2. The eGFR declines with age. An eGFR of 60-89 may be normal in some populations, particularly the elderly, for whom the CKD-EPI formula has not been extensively validated. Use of the eGFR is not recommended in the following populations:

Individuals with unstable creatinine concentrations, including patients and those with serious co-morbid conditions.

Patients with extremes in muscle mass or diet.

The data above are obtained from the National Kidney Disease Education Program (NKDEP) which additionally recommends that when the eGFR is used in patients with extremes of body mass index for purposes of drug dosing, the eGFR should be multiplied by the estimated BMI. [facility] CHEM PANEL Chloride Lvl 99 95 - 109 01/27/[address] [facility] CHEM PANEL CO2 28 24 - 32 01/27/[address] [facility] CHEM PANEL Calcium Lvl 8.5 8.5 - 10.5 01/27/[address] [facility] CHEM PANEL Sodium Lvl 135 135 - 145 01/27/[address] [facility] CHEM PANEL Glucose Lvl 193 70 - 99 01/27/[address] [facility] CHEM PANEL BUN 13 7 - 22 01/27/[address] [facility] CHEM PANEL Creatinine Lvl 0.73 0.50 - 1.40 01/27/[address] [facility] CHEM PANEL Potassium Lvl 4.0 3.5 - 5.1 01/27/[address] [facility] CHEM PANEL AGAP 12.0 10.0 - 20.0 01/27/[address] [facility] HEMATOLOGY Segs-Bands # 3.1 1.5 - 8.1 01/27/[address] [facility] HEMATOLOGY Basophils # 0.1 0.0 - 0.2 01/27/[address] [facility] HEMATOLOGY Lymphocytes # 1.7 1.0 - 5.5 01/27/[address] [facility] HEMATOLOGY Monocytes # 0.5 0.0 - 0.8 01/27/[address] [facility] HEMATOLOGY Eosinophils # 0.3 0.0 - 0.5 01/27/[address] [facility] HEMATOLOGY Basophils 1.0 0.0 - 1.0 01/27/[address] [facility] HEMATOLOGY Eosinophils 5.3 0.0 - 4.0 01/27/2017 [facility] [place] Lymphocytes 29.8 20.0 - 40.0 01/27/[address] [facility] HEMATOLOGY Monocytes 9.0 2.0 - 12.0 01/27/[address] [facility] HEMATOLOGY Segs 54.9 45.0 - 75.0 01/27/2017 [facility] [place] MPV 10.1 7.4 - 10.4 01/27/2017 [facility] [place] Platelet 250 133 - 450 01/27/2017 [facility] RDW 14.8 11.5 - 14.5 01/27/2017 [facility] [place] MCHC 34.6 32.0 - 36.0 01/27/2017 [facility] [place] MCH 30.7 27.0 - 31.0 01/27/2017 [facility] [place] MCV 88.8 80.0 - 94.0 01/27/2017 [facility] [place] Hct 30.5 42.0 - 54.0 01/27/2017 [facility] [place] RBC 3.43 4.70 - 6.10 01/27/2017 [facility] [place] WBC 5.7 3.7 - 10.4 01/27/2017 [facility] [place] Hgb 10.5 14.0 - 18.0 01/27/[address] [facility] CHEM PANEL Creatinine Lvl 0.85 0.50 - 1.40 01/24/[address] [facility] CHEM PANEL Sodium Lvl 136 135 - 145 01/24/[address] [facility] CHEM PANEL Calcium Lvl 8.7 8.5 - 10.5 01/24/[address] [facility] CHEM PANEL CO2 32 24 - 32 01/24/[address] [facility] CHEM PANEL Potassium Lvl 3.8 3.5 - 5.1 01/24/[address] [facility] CHEM PANEL Chloride Lvl 99 95 - 109 01/24/[address] [facility] CHEM PANEL Glucose Lvl 175 70 - 99 01/24/[address] [facility] CHEM PANEL BUN 15 7 - 22 01/24/[address] [facility] CHEM PANEL eGFR 100 01/24/2017 Result Comment: The eGFR is calculated using the CKD-EPI formula. In most young, healthy individuals the eGFR will be >90 mL/min/1.73m2. The eGFR declines with age. An eGFR of 60-89 may be normal in some populations, particularly the elderly, for whom the CKD-EPI formula has not been extensively validated. Use of the eGFR is not recommended in the following populations:

Individuals with unstable creatinine concentrations, including patients and those with serious co-morbid conditions.

Patients with extremes in muscle mass or diet.

The data above are obtained from the National Kidney Disease Education Program (NKDEP) which additionally recommends that when the eGFR is used in patients with extremes of body mass index for purposes of drug dosing, the eGFR should be multiplied by the estimated BMI. [facility] CHEM PANEL AGAP 8.8 10.0 - 20.0 01/24/[address] [facility] HEMATOLOGY Monocytes 10.5 2.0 - 12.0 01/24/[address] [facility] HEMATOLOGY Segs 53.5 45.0 - 75.0 01/24/[address] [facility] HEMATOLOGY Lymphocytes 27.9 20.0 - 40.0 01/24/[address] [facility] HEMATOLOGY Eosinophils 6.6 0.0 - 4.0 01/24/[address] [facility] HEMATOLOGY Basophils 1.5 0.0 - 1.0 01/24/2017 [facility] [place] Segs-Bands # 2.5 1.5 - 8.1 01/24/[address] [facility] HEMATOLOGY Eosinophils # 0.3 0.0 - 0.5 01/24/[address] [facility] HEMATOLOGY Monocytes # 0.5 0.0 - 0.8 01/24/[address] [facility] HEMATOLOGY Lymphocytes # 1.3 1.0 - 5.5 01/24/2017 [facility] [place] Basophils # 0.1 0.0 - 0.2 01/24/[address] [facility] HEMATOLOGY PT 13.7 12.0 - 14.7 01/24/[address] [facility] HEMATOLOGY INR 1.03 0.85 - 1.17 01/24/[address] [facility] HEMATOLOGY Hgb 13.1 14.0 - 18.0 01/24/2017 [facility] [place] Hct 38.0 42.0 - 54.0 01/24/[address] [facility] HEMATOLOGY WBC 4.7 3.7 - 10.4 01/24/2017 [facility] [place] RBC 4.27 4.70 - 6.10 01/24/2017 [facility] [place] RDW 14.9 11.5 - 14.5 01/24/2017 [facility] [place] Platelet 174 133 - 450 01/24/2017 [facility] [place] MCH 30.8 27.0 - 31.0 01/24/2017 [facility] [place] MCHC 34.6 32.0 - 36.0 01/24/2017 [facility] [place] MCV 89.0 80.0 - 94.0 01/24/[address] [facility] HEMATOLOGY MPV 10.0 7.4 - 10.4 01/24/[address] [facility] ELECTROLYTES AGAP 13.6 10.0 - 20.0 01/23/[address] [facility] ELECTROLYTES eGFR 98 01/23/2017 Result Comment: The eGFR is calculated using the CKD-EPI formula. In most young, healthy individuals the eGFR will be >90 mL/min/1.73m2. The eGFR declines with age. An eGFR of 60-89 may be normal in some populations, particularly the elderly, for whom the CKD-EPI formula has not been extensively validated. Use of the eGFR is not recommended in the following populations:

Individuals with unstable creatinine concentrations, including patients and those with serious co-morbid conditions.

Patients with extremes in muscle mass or diet.

The data above are obtained from the National Kidney Disease Education Program (NKDEP) which additionally recommends that when the eGFR is used in patients with extremes of body mass index for purposes of drug dosing, the eGFR should be multiplied by the estimated BMI. [facility] ELECTROLYTES Glucose Lvl 215 70 - 99 01/23/[address] [facility] ELECTROLYTES Calcium Lvl 8.6 8.5 - 10.5 01/23/[address] [facility] ELECTROLYTES Potassium Lvl 3.6 3.5 - 5.1 01/23/[address] [facility] ELECTROLYTES Chloride Lvl 98 95 - 109 01/23/[address] [facility] ELECTROLYTES CO2 28 24 - 32 01/23/[address] [facility] ELECTROLYTES Sodium Lvl 136 135 - 145 01/23/[address] [facility] ELECTROLYTES Creatinine Lvl 0.90 0.50 - 1.40 01/23/[address] [facility] ELECTROLYTES BUN 15 7 - 22 01/23/2017 [facility] [place] Platelet 155 133 - 450 01/23/2017 [facility] [place] MPV 10.3 7.4 - 10.4 01/23/2017 [facility] [place] MCHC 34.9 32.0 - 36.0 01/23/2017 [facility] [place] MCH 31.0 27.0 - 31.0 01/23/2017 [facility] [place] RDW 15.1 11.5 - 14.5 01/23/2017 [facility] [place] WBC 5.1 3.7 - 10.4 01/23/2017 [facility] HEMATOLOGY Hgb 12.5 14.0 - 18.0 01/23/[address] [facility] HEMATOLOGY MCV 88.9 80.0 - 94.0 01/23/[address] [facility] HEMATOLOGY Hct 35.9 42.0 - 54.0 01/23/[address] [facility] HEMATOLOGY RBC 4.04 4.70 - 6.10 01/23/[address] [facility] HEMATOLOGY Lymphocytes # 1.3 1.0 - 5.5 01/23/[address] [facility] HEMATOLOGY Monocytes # 0.7 0.0 - 0.8 01/23/[address] [facility] HEMATOLOGY Eosinophils # 0.3 0.0 - 0.5 01/23/[address] [facility] HEMATOLOGY Eosinophils 5.4 0.0 - 4.0 01/23/[address] [facility] HEMATOLOGY Basophils 0.9 0.0 - 1.0 01/23/[address] [facility] HEMATOLOGY Lymphocytes 24.8 20.0 - 40.0 01/23/[address] [facility] HEMATOLOGY Monocytes 12.9 2.0 - 12.0 01/23/[address] [facility] HEMATOLOGY Segs-Bands # 2.9 1.5 - 8.1 01/23/[address] [facility] HEMATOLOGY Segs 56.0 45.0 - 75.0 01/23/[address] [facility] HEMATOLOGY Basophils # 0.1 0.0 - 0.2 01/22/[address] [facility] CHEM PANEL Lactic Acid Lvl 1.2 0.5 - 2.2 01/21/[address] [facility] HEMATOLOGY Sed Rate >100 0 - 15 01/21/[address] [facility] IMMUNOLOGY C-REACTIVE PROTEIN 130.0 <=2.9 mg/L 01/21/[address] [facility] URINE AND STOOL UA Urobilinogen <=1.0 mg/dL 0.1 - 1.0 01/21/[address] [facility] URINE AND STOOL UA Color Ltyellow 01/21/[address] [facility] URINE AND STOOL UA [place] Yeast Occasional /HPF None Seen /HPF 01/21/[address] [facility] [facility] URINE AND STOOL UA Mucus Few /LPF None Seen /LPF 01/21/[address] [facility] URINE AND STOOL UA Sq Epi None Seen 01/21/[address] [facility] URINE AND STOOL UA Bili Negative *NA* (01/20/17 8:04 PM) Negative 01/21/[address] [facility] URINE AND STOOL UA RBC 11 0 - 2 01/21/[address] [facility] URINE AND STOOL UA WBC <1 0 - 5 01/21/[address] [facility] URINE AND STOOL UA Leuk Est Negative (01/20/17 8:04 PM) Negative 01/21/[address] [facility] URINE AND STOOL UA Blood Large *ABN* (01/20/17 8:04 PM) Negative 01/21/[address] [facility] URINE AND STOOL UA Nitrite Negative (01/20/17 8:04 PM) Negative 01/21/[address] [facility] URINE AND STOOL UA Bacteria Occasional /HPF None Seen /HPF 01/21/[address] [facility] URINE AND STOOL UA Ketones Negative mg/dL Negative mg/dL 01/21/2017 [facility] URINE AND STOOL UA Glucose 500 mg/dL Negative mg/dL 01/21/[address] [facility] URINE AND STOOL UA Turbidity Clear (01/20/17 8:04 PM) Clear 01/21/[address] [facility] URINE AND STOOL UA Protein Negative mg/dL Negative mg/dL 01/21/[address] [facility] URINE AND STOOL UA pH 6.0 5.0 - 8.0 01/21/[address] [facility] URINE AND STOOL UA Spec Grav 1.007 <=1.030 01/21/[address] [facility] CHEM PANEL Lactic Acid Lvl 1.5 0.5 - 2.2 01/21/[address] [facility] CARDIAC ENZYMES CK MB Index 0.5 0.0 - 2.5 01/20/[address] [facility] CARDIAC ENZYMES CK MB 0.6 0.5 - 3.6 01/20/[address] [facility] CARDIAC ENZYMES Troponin-I <0.02 0.00 - 0.40 01/20/[address] [facility] CARDIAC ENZYMES Total CK 122 12 - 191 01/20/[address] [facility] CHEM PANEL Procalcitonin Lvl 0.28 0.00 - 0.10 01/20/[address] [facility] CHEM PANEL Lactic Acid Lvl 2.3 0.5 - 2.2 01/20/[address] [facility] CHEM PANEL B/C Ratio 13 6 - 25 01/20/[address] [facility] CHEM PANEL Total Protein 7.9 6.4 - 8.4 01/20/[address] [facility] CHEM PANEL Albumin Lvl 2.7 3.5 - 5.0 01/20/[address] [facility] CHEM PANEL Globulin 5.2 2.7 - 4.2 01/20/[address] [facility] CHEM PANEL A/G Ratio 0.5 0.7 - 1.6 01/20/[address] [facility] CHEM PANEL ALT 34 0 - 65 01/20/[address] [facility] CHEM PANEL Alk Phos 92 39 - 136 01/20/[address] [facility] CHEM PANEL AST 52 0 - 37 01/20/[address] [facility] CHEM PANEL Bili Total 1.1 0.2 - 1.3 01/20/[address] [facility] HEMATOLOGY PT 14.2 12.0 - 14.7 01/20/[address] [facility] HEMATOLOGY INR 1.08 0.85 - 1.17 01/20/[address] [facility] HEMATOLOGY PTT 33.7 22.9 - 35.8 01/20/[address] [facility] IMMUNOLOGY C-REACTIVE PROTEIN 43.4 <=2.9 mg/L 09/20/[address] [facility] IMMUNOLOGY C-REACTIVE PROTEIN 59.8 <=2.9 mg/L 09/19/[address] [facility] IMMUNOLOGY C-REACTIVE PROTEIN 62.8 <=2.9 mg/L 09/18/[address] [facility] TOXICOLOGY Vanco Tr TND today 09/18/[address] [facility] TOXICOLOGY Vanco Tr 10.1 09/18/[address] [facility] CHEM PANEL eGFR 77 09/16/2016 Result Comment: The eGFR is calculated using the CKD-EPI formula. In most young, healthy individuals the eGFR will be >90 mL/min/1.73m2. The eGFR declines with age. An eGFR of 60-89 may be normal in some populations, particularly the elderly, for whom the CKD-EPI formula has not been extensively validated. Use of the eGFR is not recommended in the following populations:

Individuals with unstable creatinine concentrations, including patients and those with serious co-morbid conditions.

Patients with extremes in muscle mass or diet.

The data above are obtained from the National Kidney Disease Education Program (NKDEP) which additionally recommends that when the eGFR is used in patients with extremes of body mass index for purposes of drug dosing, the eGFR should be multiplied by the estimated BMI. [facility] CHEM PANEL Bili Total 1.0 0.2 - 1.3 09/16/[address] [facility] CHEM PANEL A/G Ratio 0.5 0.7 - 1.6 09/16/[address] [facility] CHEM PANEL ALT 48 0 - 65 09/16/[address] [facility] CHEM PANEL AST 68 0 - 37 09/16/[address] [facility] CHEM PANEL Alk Phos 80 39 - 136 09/16/[address] [facility] CHEM PANEL B/C Ratio 25 6 - 25 09/16/2016 [facility] CHEM PANEL Calcium Lvl 7.6 8.5 - 10.5 09/16/2016 [facility] CHEM PANEL Albumin Lvl 2.1 3.5 - 5.0 09/16/2016 [facility] CHEM PANEL Total Protein 6.1 6.4 - 8.4 09/16/2016 [facility] CHEM PANEL Globulin 4.0 2.7 - 4.2 09/16/2016 [facility] CHEM PANEL Sodium Lvl 136 135 - 145 09/16/2016 [facility] CHEM PANEL Chloride Lvl 103 95 - 109 09/16/2016 [facility] CHEM PANEL Potassium Lvl 3.6 3.5 - 5.1 09/16/2016 [facility] CHEM PANEL CO2 24 24 - 32 09/16/2016 [facility] CHEM PANEL AGAP 12.6 10.0 - 20.0 09/16/[address] [facility] CHEM PANEL Creatinine Lvl 1.10 0.50 - 1.40 09/16/2016 [facility] CHEM PANEL Glucose Lvl 250 70 - 99 09/16/2016 [facility] CHEM PANEL BUN 28 7 - 22 09/16/2016 [facility] CHEM PANEL Magnesium Lvl 1.9 1.8 - 2.4 09/16/2016 [facility] CHEM PANEL Phosphorus 2.0 2.5 - 4.5 09/16/2016 [facility] HEMATOLOGY Sed Rate 85 0 - 15 09/16/[address] [facility] HEMATOLOGY Eosinophils # 0.2 0.0 - 0.5 09/16/2016 [facility] HEMATOLOGY Monocytes # 0.8 0.0 - 0.8 09/16/[address] [facility] HEMATOLOGY Lymphocytes # 0.6 1.0 - 5.5 09/16/2016 [facility] HEMATOLOGY Monocytes 15.0 2.0 - 12.0 09/16/2016 [facility] HEMATOLOGY Lymphocytes 13.0 20.0 - 40.0 09/16/2016 [facility] HEMATOLOGY Bands 5.0 0.0 - 11.0 09/16/[address] [facility] HEMATOLOGY Segs 63.0 45.0 - 75.0 09/16/2016 [facility] HEMATOLOGY Basophils # 0.0 0.0 - 0.2 09/16/[address] [facility] HEMATOLOGY Segs-Bands # 3.4 1.5 - 8.1 09/16/[address] [facility] HEMATOLOGY Plt Morph Normal (09/16/16 4:54 AM) 09/16/2016 [facility] HEMATOLOGY Polychrom Slight 09/16/[address] [facility] HEMATOLOGY Eosinophils 3.0 0.0 - 4.0 09/16/[address] [facility] HEMATOLOGY Atypical Lymphs 0.0 <=0.0 % 09/16/[address] [facility] HEMATOLOGY Basophils 1.0 0.0 - 1.0 09/16/[address] [facility] HEMATOLOGY INR 1.00 0.85 - 1.17 09/16/[address] [facility] HEMATOLOGY PTT 32.4 22.9 - 35.8 09/16/[address] [facility] HEMATOLOGY PT 13.4 12.0 - 14.7 09/16/[address] [facility] HEMATOLOGY RBC 3.74 4.70 - 6.10 09/16/[address] [facility] HEMATOLOGY MCV 88.7 80.0 - 94.0 09/16/[address] [facility] HEMATOLOGY MCH 29.4 27.0 - 31.0 09/16/[address] [facility] HEMATOLOGY WBC 5.0 3.7 - 10.4 09/16/[address] [facility] HEMATOLOGY MPV 11.2 7.4 - 10.4 09/16/[address] [facility] HEMATOLOGY Hct 33.2 42.0 - 54.0 09/16/[address] [facility] HEMATOLOGY Hgb 11.0 14.0 - 18.0 09/16/[address] [facility] HEMATOLOGY RDW 13.9 11.5 - 14.5 09/16/[address] [facility] HEMATOLOGY Platelet 75 133 - 450 09/16/[address] [facility] HEMATOLOGY MCHC 33.2 32.0 - 36.0 09/16/[address] [facility] CARDIAC ENZYMES CK MB 2.1 0.5 - 3.6 09/15/[address] [facility] CARDIAC ENZYMES Troponin-I 0.02 0.00 - 0.40 09/15/[address] [facility] CARDIAC ENZYMES Total CK 116 12 - 191 09/15/[address] [facility] CARDIAC ENZYMES CK MB Index 1.8 0.0 - 2.5 09/15/[address] [facility] CARDIAC ENZYMES CK MB Index 1.2 0.0 - 2.5 09/15/[address] [facility] CARDIAC ENZYMES CK MB 2.4 0.5 - 3.6 09/15/[address] [facility] CARDIAC ENZYMES Troponin-I 0.03 0.00 - 0.40 09/15/[address] [facility] CARDIAC ENZYMES Total CK 194 12 - 191 09/15/[address] [facility] CHEM PANEL eGFR 45 09/15/2016 Result Comment: The eGFR is calculated using the CKD-EPI formula. In most young, healthy individuals the eGFR will be >90 mL/min/1.73m2. The eGFR declines with age. An eGFR of 60-89 may be normal in some populations, particularly the elderly, for whom the CKD-EPI formula has not been extensively validated. Use of the eGFR is not recommended in the following populations:

Individuals with unstable creatinine concentrations, including patients and those with serious co-morbid conditions.

Patients with extremes in muscle mass or diet.

The data above are obtained from the National Kidney Disease Education Program (NKDEP) which additionally recommends that when the eGFR is used in patients with extremes of body mass index for purposes of drug dosing, the eGFR should be multiplied by the estimated BMI. [facility] CHEM PANEL Sodium Lvl 133 135 - 145 09/15/[address] [facility] CHEM PANEL Creatinine Lvl 1.70 0.50 - 1.40 09/15/[address] [facility] CHEM PANEL CO2 23 24 - 32 09/15/[address] [facility] CHEM PANEL Chloride Lvl 101 95 - 109 09/15/[address] [facility] CHEM PANEL AGAP 12.9 10.0 - 20.0 09/15/[address] [facility] CHEM PANEL Calcium Lvl 7.2 8.5 - 10.5 09/15/[address] [facility] CHEM PANEL BUN 33 7 - 22 09/15/[address] [facility] CHEM PANEL Glucose Lvl 297 70 - 99 09/15/[address] [facility] CHEM PANEL Potassium Lvl 3.9 3.5 - 5.1 09/15/[address] [facility] LIPIDS CHD Risk 4.25 4.00 - 7.30 09/15/[address] [facility] LIPIDS VLDL 43 09/15/[address] [facility] LIPIDS Chol 102 <=199 mg/dL 09/15/[address] [facility] LIPIDS Trig 213 <=149 mg/dL 09/15/[address] [facility] LIPIDS HDL 24 >=61 mg/dL 09/15/[address] [facility] LIPIDS LDL (Calculated) 35 <=99 mg/dL 09/15/[address] [facility] SPECIAL CHEMISTRY Hgb A1C 9.7 <=5.6 % 09/15/[address] [facility] CARDIAC ENZYMES Troponin-I 0.05 0.00 - 0.40 09/15/[address] [facility] CARDIAC ENZYMES Total CK 220 12 - 191 09/15/[address] [facility] CARDIAC ENZYMES CK MB 2.1 0.5 - 3.6 09/15/[address] [facility] CARDIAC ENZYMES CK MB Index 1.0 0.0 - 2.5 09/15/2016 [facility] CHEM PANEL Lactic Acid Lvl 1.9 0.5 - 2.2 09/15/[address] [facility] CHEM PANEL Lactic Acid Lvl 2.3 0.5 - 2.2 09/15/2016 [facility] CHEM PANEL eGFR 33 09/15/2016 Result Comment: The eGFR is calculated using the CKD-EPI formula. In most young, healthy individuals the eGFR will be >90 mL/min/1.73m2. The eGFR declines with age. An eGFR of 60-89 may be normal in some populations, particularly the elderly, for whom the CKD-EPI formula has not been extensively validated. Use of the eGFR is not recommended in the following populations:

Individuals with unstable creatinine concentrations, including patients and those with serious co-morbid conditions.

Patients with extremes in muscle mass or diet.

The data above are obtained from the National Kidney Disease Education Program (NKDEP) which additionally recommends that when the eGFR is used in patients with extremes of body mass index for purposes of drug dosing, the eGFR should be multiplied by the estimated BMI. [facility] CHEM PANEL Glucose Lvl 271 70 - 99 09/15/[address] [facility] CHEM PANEL BUN 36 7 - 22 09/15/2016 [facility] CHEM PANEL Sodium Lvl 132 135 - 145 09/15/[address] [facility] CHEM PANEL Creatinine Lvl 2.20 0.50 - 1.40 09/15/[address] [facility] CHEM PANEL Calcium Lvl 6.4 8.5 - 10.5 09/15/2016 Result Comment: Critical Result(s) called to davey chakraborty at 09/15/2016 04:00 by chito. Read back OK. [facility] CHEM PANEL Chloride Lvl 99 95 - 109 09/15/[address] [facility] CHEM PANEL AGAP 16.3 10.0 - 20.0 09/15/2016 [facility] CHEM PANEL CO2 21 24 - 32 09/15/2016 [facility] CHEM PANEL Potassium Lvl 4.3 3.5 - 5.1 09/15/[address] [facility] CHEM PANEL Lactic Acid Lvl 2.9 0.5 - 2.2 09/15/2016 [facility] CHEM PANEL Lipase Lvl 80 73 - 393 09/15/2016 [facility] CHEM PANEL Magnesium Lvl 1.7 1.8 - 2.4 09/15/2016 [facility] CHEM PANEL Ketone Quantitative 0.63 <=0.27 mmol/L 09/15/2016 [facility] CHEM PANEL Phosphorus 3.0 2.5 - 4.5 09/15/2016 [facility] CHEM PANEL Osmolality 304 280 - 300 09/15/[address] [facility] TOXICOLOGY Ethanol Lvl <3 09/15/[address] [facility] TOXICOLOGY Etoh (%) <0.003 09/15/[address] [facility] CHEM PANEL Alk Phos 98 39 - 136 09/15/[address] [facility] CHEM PANEL Bili Total 1.3 0.2 - 1.3 09/15/[address] [facility] CHEM PANEL AST 53 0 - 37 09/15/[address] [facility] CHEM PANEL ALT 33 0 - 65 09/15/[address] [facility] CHEM PANEL Albumin Lvl 2.7 3.5 - 5.0 09/15/[address] [facility] CHEM PANEL Total Protein 7.9 6.4 - 8.4 09/15/[address] [facility] CHEM PANEL Globulin 5.2 2.7 - 4.2 09/15/[address] [facility] CHEM PANEL B/C Ratio 14 6 - 25 09/15/[address] [facility] CHEM PANEL A/G Ratio 0.5 0.7 - 1.6 09/15/[address] [facility] HEMATOLOGY PTT 35.2 22.9 - 35.8 09/15/[address] [facility] HEMATOLOGY RDW 13.9 11.5 - 14.5 09/15/[address] [facility] HEMATOLOGY MPV 11.4 7.4 - 10.4 09/15/[address] [facility] HEMATOLOGY MCHC 34.6 32.0 - 36.0 09/15/[address] [facility] HEMATOLOGY Platelet 101 133 - 450 09/15/[address] [facility] HEMATOLOGY Hgb 14.5 14.0 - 18.0 09/15/[address] [facility] HEMATOLOGY MCV 88.2 80.0 - 94.0 09/15/[address] [facility] HEMATOLOGY MCH 30.5 27.0 - 31.0 09/15/[address] [facility] HEMATOLOGY Hct 41.8 42.0 - 54.0 09/15/[address] [facility] HEMATOLOGY WBC 8.7 3.7 - 10.4 09/15/[address] [facility] HEMATOLOGY RBC 4.75 4.70 - 6.10 09/15/[address] [facility] HEMATOLOGY Lymphocytes 5.7 20.0 - 40.0 09/15/[address] [facility] HEMATOLOGY Eosinophils 0.1 0.0 - 4.0 09/15/[address] [facility] HEMATOLOGY Monocytes 4.0 2.0 - 12.0 09/15/[address] [facility] HEMATOLOGY Basophils 0.4 0.0 - 1.0 09/15/[address] [facility] HEMATOLOGY Segs 89.8 45.0 - 75.0 09/15/[address] [facility] HEMATOLOGY Monocytes # 0.3 0.0 - 0.8 09/15/[address] [facility] HEMATOLOGY Lymphocytes # 0.5 1.0 - 5.5 09/15/[address] [facility] HEMATOLOGY Segs-Bands # 7.8 1.5 - 8.1 09/15/[address] [facility] ELECTROLYTES AGAP 6.9 10.0 - 20.0 06/22/[address] [facility] ELECTROLYTES eGFR 98 06/22/2016 Result Comment: The eGFR is calculated using the CKD-EPI formula. In most young, healthy individuals the eGFR will be >90 mL/min/1.73m2. The eGFR declines with age. An eGFR of 60-89 may be normal in some populations, particularly the elderly, for whom the CKD-EPI formula has not been extensively validated. Use of the eGFR is not recommended in the following populations:

Individuals with unstable creatinine concentrations, including patients and those with serious co-morbid conditions.

Patients with extremes in muscle mass or diet.

The data above are obtained from the National Kidney Disease Education Program (NKDEP) which additionally recommends that when the eGFR is used in patients with extremes of body mass index for purposes of drug dosing, the eGFR should be multiplied by the estimated BMI. [facility] ELECTROLYTES Calcium Lvl 8.7 8.5 - 10.5 06/22/[address] [facility] ELECTROLYTES Potassium Lvl 3.9 3.5 - 5.1 06/22/[address] [facility] ELECTROLYTES Chloride Lvl 99 95 - 109 06/22/[address] [facility] ELECTROLYTES BUN 11 7 - 22 06/22/[address] [facility] ELECTROLYTES Sodium Lvl 133 135 - 145 06/22/[address] [facility] ELECTROLYTES Creatinine Lvl 0.90 0.50 - 1.40 06/22/[address] [facility] ELECTROLYTES Glucose Lvl 163 70 - 99 06/22/[address] [facility] ELECTROLYTES CO2 31 24 - 32 06/22/[address] [facility] HEMATOLOGY MCH 31.1 27.0 - 31.0 06/22/[address] [facility] HEMATOLOGY MCV 90.4 80.0 - 94.0 06/22/[address] [facility] HEMATOLOGY Platelet 182 133 - 450 06/22/[address] [facility] HEMATOLOGY RDW 14.1 11.5 - 14.5 06/22/[address] [facility] HEMATOLOGY MPV 9.2 7.4 - 10.4 06/22/[address] [facility] HEMATOLOGY MCHC 34.4 32.0 - 36.0 06/22/[address] [facility] HEMATOLOGY Hct 38.0 42.0 - 54.0 06/22/2016 [facility] HEMATOLOGY WBC 4.9 3.7 - 10.4 06/22/[address] [facility] HEMATOLOGY Hgb 13.1 14.0 - 18.0 06/22/[address] [facility] HEMATOLOGY RBC 4.20 4.70 - 6.10 06/22/[address] [facility] HEMATOLOGY Eosinophils # 0.3 0.0 - 0.5 06/22/2016 [facility] HEMATOLOGY Basophils 0.7 0.0 - 1.0 06/22/2016 [facility] HEMATOLOGY Monocytes 9.7 2.0 - 12.0 06/22/2016 [facility] HEMATOLOGY Eosinophils 5.8 0.0 - 4.0 06/22/2016 [facility] HEMATOLOGY Monocytes # 0.5 0.0 - 0.8 06/22/[address] [facility] HEMATOLOGY Lymphocytes # 1.0 1.0 - 5.5 06/22/2016 [facility] HEMATOLOGY Segs-Bands # 3.1 1.5 - 8.1 06/22/[address] [facility] HEMATOLOGY Lymphocytes 20.6 20.0 - 40.0 06/22/[address] [facility] HEMATOLOGY Segs 63.2 45.0 - 75.0 06/22/[address] [facility] TOXICOLOGY Vanco Tr TND 23:30 06/22/2016 [facility] TOXICOLOGY Vanco Tr 16.1 06/22/2016 [facility] TOXICOLOGY Vanco Tr TND 0130 06/20/2016 [facility] TOXICOLOGY Vanco Tr 12.5 06/20/2016 [facility] TOXICOLOGY Vanco Tr 20.0 06/19/2016 [facility] TOXICOLOGY Vanco Tr TND 0130 06/19/[address] [facility] CHEM PANEL Creatinine Lvl 0.89 0.50 - 1.40 06/18/[address] [facility] CHEM PANEL Sodium Lvl 130 135 - 145 06/18/[address] [facility] CHEM PANEL BUN 11 7 - 22 06/18/[address] [facility] CHEM PANEL AGAP 10.5 10.0 - 20.0 06/18/[address] [facility] CHEM PANEL Calcium Lvl 8.1 8.5 - 10.5 06/18/[address] [facility] CHEM PANEL Glucose Lvl 262 70 - 99 06/18/[address] [facility] CHEM PANEL Potassium Lvl 3.5 3.5 - 5.1 06/18/[address] [facility] CHEM PANEL CO2 27 24 - 32 06/18/[address] [facility] CHEM PANEL Chloride Lvl 96 95 - 109 06/18/[address] [facility] CHEM PANEL eGFR 98 06/18/2016 Result Comment: The eGFR is calculated using the CKD-EPI formula. In most young, healthy individuals the eGFR will be >90 mL/min/1.73m2. The eGFR declines with age. An eGFR of 60-89 may be normal in some populations, particularly the elderly, for whom the CKD-EPI formula has not been extensively validated. Use of the eGFR is not recommended in the following populations:

Individuals with unstable creatinine concentrations, including patients and those with serious co-morbid conditions.

Patients with extremes in muscle mass or diet.

The data above are obtained from the National Kidney Disease Education Program (NKDEP) which additionally recommends that when the eGFR is used in patients with extremes of body mass index for purposes of drug dosing, the eGFR should be multiplied by the estimated BMI. [facility] [place] MCH 31.3 27.0 - 31.0 06/18/2016 [facility] [place] RBC 3.89 4.70 - 6.10 06/18/2016 [facility] [place] Hgb 12.2 14.0 - 18.0 06/18/2016 [facility] [place] Hct 35.2 42.0 - 54.0 06/18/2016 [facility] [place] MCV 90.3 80.0 - 94.0 06/18/2016 [facility] [place] MCHC 34.7 32.0 - 36.0 06/18/2016 [facility] [place] MPV 10.4 7.4 - 10.4 06/18/2016 [facility] [place] RDW 14.7 11.5 - 14.5 06/18/2016 [facility] [place] Platelet 128 133 - 450 06/18/2016 [facility] [place] WBC 5.6 3.7 - 10.4 06/18/2016 [facility] [place] Monocytes # 0.7 0.0 - 0.8 06/18/2016 [facility] HEMATOLOGY Eosinophils # 0.1 0.0 - 0.5 06/18/[address] [facility] HEMATOLOGY Lymphocytes # 1.4 1.0 - 5.5 06/18/[address] [facility] HEMATOLOGY Segs 60.2 45.0 - 75.0 06/18/[address] [facility] HEMATOLOGY Monocytes 12.3 2.0 - 12.0 06/18/[address] [facility] HEMATOLOGY Lymphocytes 24.5 20.0 - 40.0 06/18/[address] [facility] HEMATOLOGY Eosinophils 2.3 0.0 - 4.0 06/18/[address] [facility] HEMATOLOGY Basophils 0.7 0.0 - 1.0 06/18/[address] [facility] HEMATOLOGY Segs-Bands # 3.4 1.5 - 8.1 06/18/[address] [facility] HEMATOLOGY Sed Rate 89 0 - 15 06/18/[address] [facility] IMMUNOLOGY C-REACTIVE PROTEIN 90.4 <=2.9 mg/L 06/18/[address] [facility] CHEM PANEL Lactic Acid Lvl 1.4 0.5 - 2.2 06/17/[address] [facility] CHEM PANEL Procalcitonin Lvl <0.05 ng/mL 0.00 - 0.10 06/17/[address] [facility] CHEM PANEL Lactic Acid Lvl 2.6 0.5 - 2.2 06/17/[address] [facility] CHEM PANEL eGFR 91 06/17/2016 Result Comment: The eGFR is calculated using the CKD-EPI formula. In most young, healthy individuals the eGFR will be >90 mL/min/1.73m2. The eGFR declines with age. An eGFR of 60-89 may be normal in some populations, particularly the elderly, for whom the CKD-EPI formula has not been extensively validated. Use of the eGFR is not recommended in the following populations:

Individuals with unstable creatinine concentrations, including patients and those with serious co-morbid conditions.

Patients with extremes in muscle mass or diet.

The data above are obtained from the National Kidney Disease Education Program (NKDEP) which additionally recommends that when the eGFR is used in patients with extremes of body mass index for purposes of drug dosing, the eGFR should be multiplied by the estimated BMI. [facility] CHEM PANEL Sodium Lvl 130 135 - 145 06/17/[address] [facility] CHEM PANEL CO2 27 24 - 32 06/17/2016 [facility] CHEM PANEL Chloride Lvl 95 95 - 109 06/17/2016 [facility] CHEM PANEL Calcium Lvl 8.1 8.5 - 10.5 06/17/2016 [facility] CHEM PANEL Potassium Lvl 3.9 3.5 - 5.1 06/17/2016 [facility] CHEM PANEL Total Protein 7.7 6.4 - 8.4 06/17/2016 [facility] CHEM PANEL Albumin Lvl 3.0 3.5 - 5.0 06/17/2016 [facility] CHEM PANEL ALT 17 0 - 65 06/17/2016 [facility] CHEM PANEL AST 23 0 - 37 06/17/2016 [facility] CHEM PANEL Alk Phos 128 39 - 136 06/17/2016 [facility] CHEM PANEL Bili Total 0.4 0.2 - 1.3 06/17/2016 [facility] CHEM PANEL Glucose Lvl 309 70 - 99 06/17/2016 [facility] CHEM PANEL BUN 9 7 - 22 06/17/2016 [facility] CHEM PANEL Creatinine Lvl 0.95 0.50 - 1.40 06/17/2016 [facility] CHEM PANEL AGAP 11.9 10.0 - 20.0 06/17/2016 [facility] CHEM PANEL B/C Ratio 9 6 - 25 06/17/2016 [facility] CHEM PANEL A/G Ratio 0.6 0.7 - 1.6 06/17/2016 [facility] CHEM PANEL Globulin 4.7 2.7 - 4.2 06/17/2016 [facility] HEMATOLOGY Basophils 0.7 0.0 - 1.0 06/17/2016 [facility] HEMATOLOGY Segs-Bands # 3.5 1.5 - 8.1 06/17/2016 [facility] HEMATOLOGY Eosinophils # 0.1 0.0 - 0.5 06/17/2016 [facility] HEMATOLOGY Monocytes # 0.5 0.0 - 0.8 06/17/2016 [facility] HEMATOLOGY Lymphocytes 17.7 20.0 - 40.0 06/17/2016 [facility] HEMATOLOGY Lymphocytes # 0.9 1.0 - 5.5 06/17/2016 [facility] HEMATOLOGY Monocytes 10.5 2.0 - 12.0 06/17/2016 [facility] HEMATOLOGY Eosinophils 1.7 0.0 - 4.0 06/17/2016 [facility] HEMATOLOGY Segs 69.4 45.0 - 75.0 06/17/2016 [facility] HEMATOLOGY INR 1.10 0.85 - 1.17 06/17/2016 [facility] HEMATOLOGY PT 14.5 12.0 - 14.7 06/17/[address] [facility] HEMATOLOGY PTT 32.3 22.9 - 35.8 06/17/[address] [facility] HEMATOLOGY MCHC 34.4 32.0 - 36.0 06/17/2016 [facility] [place] MCH 31.1 27.0 - 31.0 06/17/2016 [facility] [place] MPV 10.0 7.4 - 10.4 06/17/2016 [facility] [place] Platelet 131 133 - 450 06/17/[address] [facility] HEMATOLOGY RDW 14.8 11.5 - 14.5 06/17/[address] [facility] HEMATOLOGY Hct 37.4 42.0 - 54.0 06/17/2016 [facility] [place] WBC 5.0 3.7 - 10.4 06/17/2016 [facility] [place] Hgb 12.9 14.0 - 18.0 06/17/2016 [facility] [facility] [place] RBC 4.14 4.70 - 6.10 06/17/2016 [facility] [place] MCV 90.4 80.0 - 94.0 06/17/[address] [facility] SPECIAL CHEMISTRY Hgb A1C 9.8 <=5.6 % 06/17/[address] [facility] ELECTROLYTES AGAP 10.4 10.0 - 20.0 02/25/[address] [facility] ELECTROLYTES eGFR 117 02/25/2016 Result Comment: The eGFR is calculated using the CKD-EPI formula. In most young, healthy individuals the eGFR will be >90 mL/min/1.73m2. The eGFR declines with age. An eGFR of 60-89 may be normal in some populations, particularly the elderly, for whom the CKD-EPI formula has not been extensively validated. Use of the eGFR is not recommended in the following populations:

Individuals with unstable creatinine concentrations, including patients and those with serious co-morbid conditions.

Patients with extremes in muscle mass or diet.

The data above are obtained from the National Kidney Disease Education Program (NKDEP) which additionally recommends that when the eGFR is used in patients with extremes of body mass index for purposes of drug dosing, the eGFR should be multiplied by the estimated BMI. [facility] ELECTROLYTES CO2 30 24 - 32 02/25/[address] [facility] ELECTROLYTES Calcium Lvl 8.0 8.5 - 10.5 02/25/[address] [facility] ELECTROLYTES Glucose Lvl 94 70 - 99 02/25/2016 [facility] ELECTROLYTES BUN 17 7 - 22 02/25/2016 [facility] ELECTROLYTES Potassium Lvl 3.4 3.5 - 5.1 02/25/2016 [facility] ELECTROLYTES Chloride Lvl 96 95 - 109 02/25/2016 [facility] ELECTROLYTES Creatinine Lvl 0.59 0.50 - 1.40 02/25/2016 [facility] ELECTROLYTES Sodium Lvl 133 135 - 145 02/25/[address] [facility] HEMATOLOGY Hct 32.0 42.0 - 54.0 02/25/[address] [facility] HEMATOLOGY MCV 83.6 80.0 - 94.0 02/25/[address] [facility] HEMATOLOGY MCH 28.1 27.0 - 31.0 02/25/[address] [facility] HEMATOLOGY MCHC 33.6 32.0 - 36.0 02/25/[address] [facility] HEMATOLOGY MPV 8.7 7.4 - 10.4 02/25/[address] [facility] HEMATOLOGY Hgb 10.8 14.0 - 18.0 02/25/[address] [facility] HEMATOLOGY Platelet 218 133 - 450 02/25/[address] [facility] HEMATOLOGY RDW 15.0 11.5 - 14.5 02/25/[address] [facility] HEMATOLOGY WBC 7.8 3.7 - 10.4 02/25/[address] [facility] HEMATOLOGY RBC 3.83 4.70 - 6.10 02/25/[address] [facility] HEMATOLOGY Segs-Bands # 5.6 1.5 - 8.1 02/25/2016 [facility] HEMATOLOGY Lymphocytes # 1.3 1.0 - 5.5 02/25/2016 [facility] HEMATOLOGY Eosinophils 3.0 0.0 - 4.0 02/25/2016 [facility] HEMATOLOGY Basophils 0.8 0.0 - 1.0 02/25/2016 [facility] HEMATOLOGY Monocytes # 0.6 0.0 - 0.8 02/25/2016 [facility] HEMATOLOGY Eosinophils # 0.2 0.0 - 0.5 02/25/2016 [facility] HEMATOLOGY Basophils # 0.1 0.0 - 0.2 02/25/2016 [facility] HEMATOLOGY Segs 71.9 45.0 - 75.0 02/25/2016 [facility] HEMATOLOGY Lymphocytes 17.0 20.0 - 40.0 02/25/2016 [facility] HEMATOLOGY Monocytes 7.3 2.0 - 12.0 02/25/2016 [facility] TOXICOLOGY Vanco Tr 17.2 02/25/[address] [facility] TOXICOLOGY Vanco Tr TND 0 02/25/[address] [facility] BACTERIAL - SEROLOGY MRSA by PCR Negative (02/25/16 12:10 AM) 02/25/[address] [facility] TOXICOLOGY Vanco Tr 9.9 02/23/[address] [facility] TOXICOLOGY Vanco Tr TND 2200 02/23/[address] [facility] CHEM PANEL Bili Total 0.7 0.2 - 1.3 02/22/[address] [facility] CHEM PANEL ALT 11 0 - 65 02/22/[address] [facility] CHEM PANEL AST 12 0 - 37 02/22/[address] [facility] CHEM PANEL Albumin Lvl 2.0 3.5 - 5.0 02/22/[address] [facility] CHEM PANEL Globulin 5.8 2.0 - 4.0 02/22/[address] [facility] CHEM PANEL A/G Ratio 0.3 0.7 - 1.6 02/22/[address] [facility] CHEM PANEL eGFR 108 02/22/2016 Result Comment: The eGFR is calculated using the CKD-EPI formula. In most young, healthy individuals the eGFR will be >90 mL/min/1.73m2. The eGFR declines with age. An eGFR of 60-89 may be normal in some populations, particularly the elderly, for whom the CKD-EPI formula has not been extensively validated. Use of the eGFR is not recommended in the following populations:

Individuals with unstable creatinine concentrations, including patients and those with serious co-morbid conditions.

Patients with extremes in muscle mass or diet.

The data above are obtained from the National Kidney Disease Education Program (NKDEP) which additionally recommends that when the eGFR is used in patients with extremes of body mass index for purposes of drug dosing, the eGFR should be multiplied by the estimated BMI. [facility] CHEM PANEL Alk Phos 92 39 - 136 02/22/[address] [facility] CHEM PANEL Total Protein 7.8 6.4 - 8.4 02/22/[address] [facility] CHEM PANEL B/C Ratio 14 6 - 25 02/22/[address] [facility] CHEM PANEL Calcium Lvl 8.3 8.5 - 10.5 02/22/[address] [facility] CHEM PANEL CO2 29 24 - 32 02/22/[address] [facility] CHEM PANEL AGAP 9.6 10.0 - 20.0 02/22/[address] [facility] CHEM [facility] Creatinine Lvl 0.73 0.50 - 1.40 02/22/2016 [facility] CHEM PANEL Sodium Lvl 132 135 - 145 02/22/[address] [facility] CHEM PANEL Chloride Lvl 97 95 - 109 02/22/[address] [facility] CHEM PANEL Potassium Lvl 3.6 3.5 - 5.1 02/22/[address] [facility] CHEM PANEL BUN 10 7 - 22 02/22/[address] [facility] CHEM PANEL Glucose Lvl 256 70 - 99 02/22/[address] [facility] HEMATOLOGY Sed Rate >100 mm/hr 0 - 15 02/22/2016 [facility] HEMATOLOGY Eosinophils # 0.1 0.0 - 0.5 02/22/2016 [facility] HEMATOLOGY Monocytes # 0.5 0.0 - 0.8 02/22/2016 [facility] HEMATOLOGY Lymphocytes # 1.2 1.0 - 5.5 02/22/[address] [facility] HEMATOLOGY Segs-Bands # 3.4 1.5 - 8.1 02/22/[address] [facility] HEMATOLOGY Basophils 0.9 0.0 - 1.0 02/22/[address] [facility] HEMATOLOGY Eosinophils 2.5 0.0 - 4.0 02/22/2016 [facility] HEMATOLOGY Monocytes 9.8 2.0 - 12.0 02/22/[address] [facility] HEMATOLOGY Lymphocytes 22.1 20.0 - 40.0 02/22/[address] [facility] HEMATOLOGY Segs 64.7 45.0 - 75.0 02/22/[address] [facility] HEMATOLOGY Hct 30.3 42.0 - 54.0 02/22/[address] [facility] HEMATOLOGY MCV 84.1 80.0 - 94.0 02/22/[address] [facility] HEMATOLOGY MCH 27.9 27.0 - 31.0 02/22/[address] [facility] HEMATOLOGY Hgb 10.0 14.0 - 18.0 02/22/[address] [facility] HEMATOLOGY WBC 5.2 3.7 - 10.4 02/22/[address] [facility] HEMATOLOGY RBC 3.60 4.70 - 6.10 02/22/[address] [facility] HEMATOLOGY MPV 8.9 7.4 - 10.4 02/22/[address] [facility] HEMATOLOGY Platelet 178 133 - 450 02/22/[address] [facility] HEMATOLOGY MCHC 33.2 32.0 - 36.0 02/22/[address] [facility] HEMATOLOGY RDW 14.9 11.5 - 14.5 02/22/[address] [facility] IMMUNOLOGY C-REACTIVE PROTEIN 155.0 <=2.9 mg/L 02/22/[address] [facility] SPECIAL CHEMISTRY Hgb A1C 11.5 <=5.6 % 02/22/[address] [facility] URINE AND STOOL UA Leuk Est Negative (02/21/16 11:40 AM) Negative 02/21/[address] [facility] URINE AND STOOL UA Nitrite Negative (02/21/16 11:40 AM) Negative 02/21/[address] [facility] URINE AND STOOL UA Urobilinogen 0.2 0.1 - 1.0 02/21/[address] [facility] URINE AND STOOL UA Bili Negative *NA* (02/21/16 11:40 AM) Negative 02/21/[address] [facility] URINE AND STOOL UA Blood Large *ABN* (02/21/16 11:40 AM) Negative 02/21/[address] [facility] URINE AND STOOL UA Sq Epi Moderate /LPF Few /LPF 02/21/[address] [facility] URINE AND STOOL UA Ketones Trace *ABN* (02/21/16 11:40 AM) Negative 02/21/[address] [facility] URINE AND STOOL UA Glucose >=1000 mg/dL Negative mg/dL 02/21/[address] [facility] URINE AND STOOL UA Protein Trace *ABN* (02/21/16 11:40 AM) Negative 02/21/[address] [facility] URINE AND STOOL UA RBC 3-5 /HPF 0 - 2 02/21/[address] [facility] URINE AND STOOL UA Bacteria Occasional /HPF None Seen /HPF 02/21/[address] [facility] URINE AND STOOL UA WBC 3-5 /HPF 0 - 5 02/21/[address] [facility] URINE AND STOOL UA Turbidity Clear (02/21/16 11:40 AM) Clear 02/21/[address] [facility] URINE AND STOOL UA Spec Grav >=1.030 *ABN* (02/21/16 11:40 AM) <=1.030 02/21/[address] [facility] URINE AND STOOL UA pH 5.5 5.0 - 8.0 02/21/[address] [facility] URINE AND STOOL UA Color Yellow *NA* (02/21/16 11:40 AM) Yellow 02/21/[address] [facility] CHEM PANEL Lactic Acid Lvl 1.3 0.5 - 2.2 02/21/[address] [facility] ELECTROLYTES AGAP 10.8 10.0 - 20.0 02/21/[address] [facility] ELECTROLYTES eGFR 88 02/21/2016 Result Comment: The eGFR is calculated using the CKD-EPI formula. In most young, healthy individuals the eGFR will be >90 mL/min/1.73m2. The eGFR declines with age. An eGFR of 60-89 may be normal in some populations, particularly the elderly, for whom the CKD-EPI formula has not been extensively validated. Use of the eGFR is not recommended in the following populations:

Individuals with unstable creatinine concentrations, including patients and those with serious co-morbid conditions.

Patients with extremes in muscle mass or diet.

The data above are obtained from the National Kidney Disease Education Program (NKDEP) which additionally recommends that when the eGFR is used in patients with extremes of body mass index for purposes of drug dosing, the eGFR should be multiplied by the estimated BMI. [facility] ELECTROLYTES Chloride Lvl 93 95 - 109 02/21/[address] [facility] ELECTROLYTES CO2 27 24 - 32 02/21/[address] [facility] ELECTROLYTES Calcium Lvl 8.4 8.5 - 10.5 02/21/[address] [facility] ELECTROLYTES Potassium Lvl 3.8 3.5 - 5.1 02/21/[address] [facility] ELECTROLYTES Sodium Lvl 127 135 - 145 02/21/[address] [facility] ELECTROLYTES Creatinine Lvl 0.99 0.50 - 1.40 02/21/[address] [facility] ELECTROLYTES BUN 13 7 - 22 02/21/[address] [facility] ELECTROLYTES Glucose Lvl 373 70 - 99 02/21/2016 [facility] [place] PT 15.6 12.0 - 14.7 02/21/2016 [facility] [place] INR 1.21 0.85 - 1.17 02/21/2016 [facility] [place] PTT 39.8 22.9 - 35.8 02/21/2016 [facility] [place] RDW 14.8 11.5 - 14.5 02/21/2016 [facility] [place] Platelet 180 133 - 450 02/21/2016 [facility] [place] MCHC 33.0 32.0 - 36.0 02/21/2016 [facility] [place] MCH 27.9 27.0 - 31.0 02/21/2016 [facility] [place] Hct 29.3 42.0 - 54.0 02/21/2016 [facility] [place] MCV 84.6 80.0 - 94.0 02/21/2016 [facility] [place] MPV 9.7 7.4 - 10.4 02/21/2016 [facility] [place] WBC 7.1 3.7 - 10.4 02/21/2016 [facility] HEMATOLOGY Hgb 9.7 14.0 - 18.0 02/21/[address] [facility] HEMATOLOGY RBC 3.46 4.70 - 6.10 02/21/[address] [facility] HEMATOLOGY Basophils 1.1 0.0 - 1.0 02/21/[address] [facility] HEMATOLOGY Monocytes 8.8 2.0 - 12.0 02/21/[address] [facility] HEMATOLOGY Eosinophils 1.2 0.0 - 4.0 02/21/[address] [facility] HEMATOLOGY Segs-Bands # 5.2 1.5 - 8.1 02/21/[address] [facility] HEMATOLOGY Lymphocytes 15.8 20.0 - 40.0 02/21/[address] [facility] HEMATOLOGY Segs 73.1 45.0 - 75.0 02/21/[address] [facility] HEMATOLOGY Monocytes # 0.6 0.0 - 0.8 02/21/2016 [facility] [place] Lymphocytes # 1.1 1.0 - 5.5 02/21/[address] [facility] HEMATOLOGY Eosinophils # 0.1 0.0 - 0.5 02/21/[address] [facility] HEMATOLOGY Basophils # 0.1 0.0 - 0.2 02/21/[address] [facility] CHEM PANEL Lactic Acid Lvl 1.8 0.5 - 2.2 12/29/[address] [facility] CHEM PANEL eGFR 74 12/29/2015 Result Comment: The eGFR is calculated using the CKD-EPI formula. In most young, healthy individuals the eGFR will be >90 mL/min/1.73m2. The eGFR declines with age. An eGFR of 60-89 may be normal in some populations, particularly the elderly, for whom the CKD-EPI formula has not been extensively validated. Use of the eGFR is not recommended in the following populations:

Individuals with unstable creatinine concentrations, including patients and those with serious co-morbid conditions.

Patients with extremes in muscle mass or diet.

The data above are obtained from the National Kidney Disease Education Program (NKDEP) which additionally recommends that when the eGFR is used in patients with extremes of body mass index for purposes of drug dosing, the eGFR should be multiplied by the estimated BMI. [facility] CHEM PANEL CO2 25 24 - 32 12/29/[address] [facility] CHEM PANEL Chloride Lvl 91 95 - 109 12/29/[address] [facility] CHEM PANEL Calcium Lvl 8.6 8.5 - 10.5 12/29/2015 [facility] CHEM PANEL Sodium Lvl 125 135 - 145 12/29/[address] [facility] CHEM PANEL Potassium Lvl 3.8 3.5 - 5.1 12/29/[address] [facility] CHEM PANEL AGAP 12.8 10.0 - 20.0 12/29/2015 [facility] CHEM PANEL BUN 14 7 - 22 12/29/[address] [facility] CHEM PANEL Glucose Lvl 452 70 - 99 12/29/2015 Result Comment: Critical Result(s) called to dirk at 12/28/2015 21:17 by sol_. Read back OK. [facility] CHEM PANEL Creatinine Lvl 1.14 0.50 - 1.40 12/29/[address] [facility] CHEM PANEL Lactic Acid Lvl 2.2 0.5 - 2.2 12/29/[address] [facility] CHEM PANEL Ketone Quantitative 0.11 <=0.27 mmol/L 12/29/[address] [facility] HEMATOLOGY Monocytes # 0.3 0.0 - 0.8 12/29/[address] [facility] HEMATOLOGY Segs-Bands # 10.1 1.5 - 8.1 12/29/[address] [facility] HEMATOLOGY Monocytes 3.0 2.0 - 12.0 12/29/[address] [facility] HEMATOLOGY RBC Morph Normal (12/28/15 8:39 PM) 12/29/[address] [facility] HEMATOLOGY Segs 77.0 45.0 - 75.0 12/29/[address] [facility] HEMATOLOGY Plt Morph Normal (12/28/15 8:39 PM) 12/29/[address] [facility] HEMATOLOGY Lymphocytes # 0.9 1.0 - 5.5 12/29/[address] [facility] HEMATOLOGY Lymphocytes 8.0 20.0 - 40.0 12/29/[address] [facility] HEMATOLOGY Bands 12.0 0.0 - 11.0 12/29/[address] [facility] HEMATOLOGY MPV 10.3 7.4 - 10.4 12/29/[address] [facility] HEMATOLOGY Platelet 125 133 - 450 12/29/[address] [facility] HEMATOLOGY RBC 4.08 4.70 - 6.10 12/29/[address] [facility] HEMATOLOGY WBC 11.4 3.7 - 10.4 12/29/[address] [facility] HEMATOLOGY Hgb 11.7 14.0 - 18.0 12/29/[address] [facility] HEMATOLOGY MCH 28.7 27.0 - 31.0 12/29/[address] [facility] HEMATOLOGY MCV 87.7 80.0 - 94.0 12/29/[address] [facility] HEMATOLOGY RDW 16.1 11.5 - 14.5 12/29/[address] [facility] HEMATOLOGY MCHC 32.8 32.0 - 36.0 12/29/[address] [facility] HEMATOLOGY Hct 35.7 42.0 - 54.0 12/29/[address] [facility] CHEM PANEL eGFR 99 05/03/2015 <sup>1</sup>Result Comment: The eGFR is calculated using the CKD-EPI formula. In most young, healthy individuals the eGFR will be >90 mL/min/1.73m2. The eGFR declines with age. An eGFR of 60-89 may be normal in some populations, particularly the elderly, for whom the CKD-EPI formula has not been extensively validated. Use of the eGFR is not recommended in the following populations:& lt;br/>
Individuals with unstable creatinine concentrations, including patients and those with serious co-morbid conditions.

Patients with extremes in muscle mass or diet.

The data above are obtained from the National Kidney Disease Education Program (NKDEP) which additionally recommends that when the eGFR is used in patients with extremes of body mass index for purposes of drug dosing, the eGFR should be multiplied by the estimated BMI. [facility] CHEM PANEL Total Protein 8.0 6.4 - 8.4 05/03/[address] [facility] CHEM PANEL ALT 27 0 - 65 05/03/[address] [facility] CHEM PANEL Albumin Lvl 2.2 3.5 - 5.0 05/03/[address] [facility] CHEM PANEL CO2 25 24 - 32 05/03/[address] [facility] CHEM PANEL Calcium Lvl 8.6 8.5 - 10.5 05/03/[address] [facility] CHEM PANEL Creatinine Lvl 0.9 0.5 - 1.4 05/03/[address] [facility] CHEM PANEL BUN 13 7 - 22 05/03/[address] [facility] CHEM PANEL Glucose Lvl 139 70 - 99 05/03/2015 <sup>4</sup>Interpretive Data: Adult reference range values reflect the clinical guidelines
of the [place] [employer]. [facility] CHEM PANEL Bili Total 0.4 0.2 - 1.3 05/03/[address] [facility] CHEM PANEL Alk Phos 97 39 - 136 05/03/[address] [facility] CHEM PANEL AST 42 0 - 37 05/03/[address] [facility] CHEM PANEL Potassium Lvl 4.1 3.5 - 5.1 05/03/[address] [facility] CHEM PANEL Sodium Lvl 135 135 - 145 05/03/[address] [facility] CHEM PANEL Chloride Lvl 101 95 - 109 05/03/[address] [facility] CHEM PANEL A/G Ratio 0.4 0.7 - 1.6 05/03/[address] [facility] CHEM PANEL Globulin 5.8 2.0 - 4.0 05/03/[address] [facility] CHEM PANEL AGAP 13.1 10.0 - 20.0 05/03/[address] [facility] CHEM PANEL B/C Ratio 14 6 - 25 05/03/2015 [facility] HEMATOLOGY Lymphocytes # 1.3 1.0 - 5.5 05/03/2015 [facility] HEMATOLOGY Monocytes # 0.5 0.0 - 0.8 05/03/2015 [facility] HEMATOLOGY Eosinophils # 0.3 0.0 - 0.5 05/03/2015 [facility] HEMATOLOGY Basophils # 0.1 0.0 - 0.2 05/03/[address] [facility] HEMATOLOGY Segs 65.7 45.0 - 75.0 05/03/2015 [facility] HEMATOLOGY Eosinophils 4.0 0.0 - 4.0 05/03/2015 [facility] HEMATOLOGY Basophils 1.3 0.0 - 1.0 05/03/2015 [facility] HEMATOLOGY Segs-Bands # 4.1 1.5 - 8.1 05/03/[address] [facility] HEMATOLOGY Lymphocytes 20.5 20.0 - 40.0 05/03/[address] [facility] HEMATOLOGY Monocytes 8.5 2.0 - 12.0 05/03/[address] [facility] HEMATOLOGY MCV 94.6 80.0 - 94.0 05/03/[address] [facility] HEMATOLOGY MCH 33.1 27.0 - 31.0 05/03/[address] [facility] HEMATOLOGY MCHC 34.9 32.0 - 36.0 05/03/[address] [facility] HEMATOLOGY Hgb 12.5 14.0 - 18.0 05/03/[address] [facility] HEMATOLOGY Hct 35.9 42.0 - 54.0 05/03/[address] [facility] HEMATOLOGY Platelet 271 133 - 450 05/03/[address] [facility] HEMATOLOGY MPV 9.9 7.4 - 10.4 05/03/[address] [facility] HEMATOLOGY RDW 13.6 11.5 - 14.5 05/03/[address] [facility] HEMATOLOGY WBC 6.3 3.7 - 10.4 05/03/[address] [facility] HEMATOLOGY RBC 3.79 4.70 - 6.10 05/03/[address] [facility] ELECTROLYTES Potassium Lvl 3.9 3.5 - 5.1 05/02/[address] [facility] ELECTROLYTES Potassium Lvl 4.2 3.5 - 5.1 05/01/[address] [facility] IMMUNOLOGY Prealbumin 5.3 18.0 - 45.0 05/01/[address] [facility] ANEMIA STUDY % [place] 27 12 - 57 04/29/[address] [facility] ANEMIA STUDY TIBC 117 228 - 428 04/29/[address] [facility] ANEMIA STUDY Iron 32 45 - 160 04/29/[address] [facility] ANEMIA STUDY UIBC 85 110 - 370 04/29/[address] [facility] ANEMIA STUDY Ferritin Lvl 413 22 - 275 04/29/[address] [facility] ANEMIA STUDY Folate Lvl 4.0 >=3.0 ng/mL 04/29/[address] [facility] CHEM PANEL BUN 11 7 - 22 04/29/[address] [facility] CHEM PANEL eGFR 117 04/29/2015 <sup>2</sup>Result Comment: The eGFR is calculated using the CKD-EPI formula. In most young, healthy individuals the eGFR will be >90 mL/min/1.73m2. The eGFR declines with age. An eGFR of 60-89 may be normal in some populations, particularly the elderly, for whom the CKD-EPI formula has not been extensively validated. Use of the eGFR is not recommended in the following populations:& lt;br/>
Individuals with unstable creatinine concentrations, including patients and those with serious co-morbid conditions.

Patients with extremes in muscle mass or diet.

The data above are obtained from the National Kidney Disease Education Program (NKDEP) which additionally recommends that when the eGFR is used in patients with extremes of body mass index for purposes of drug dosing, the eGFR should be multiplied by the estimated BMI. [facility] CHEM PANEL Calcium Lvl 5.8 8.5 - 10.5 04/29/2015 <sup>7</sup>Result Comment: Critical Result(s) called to Jose Pérez at 04/29/2015 04:59 by allie. Read back OK. [facility] CHEM PANEL AGAP 10.8 10.0 - 20.0 04/29/[address] [facility] CHEM PANEL Creatinine Lvl 0.6 0.5 - 1.4 04/29/[address] [facility] CHEM PANEL Glucose Lvl 84 70 - 99 04/29/2015 <sup>5</sup>Interpretive Data: Adult reference range values reflect the clinical guidelines
of the [place] [employer]. [facility] CHEM PANEL Sodium Lvl 143 135 - 145 04/29/[address] [facility] CHEM PANEL Chloride Lvl 115 95 - 109 04/29/[address] [facility] CHEM PANEL CO2 20 24 - 32 04/29/[address] [facility] HEMATOLOGY Hct 27.4 42.0 - 54.0 04/29/[address] [facility] HEMATOLOGY Hgb 9.6 14.0 - 18.0 04/29/[address] [facility] HEMATOLOGY WBC 5.7 3.7 - 10.4 04/29/[address] [facility] HEMATOLOGY MCH 33.3 27.0 - 31.0 04/29/[address] [facility] HEMATOLOGY RBC 2.89 4.70 - 6.10 04/29/[address] [facility] HEMATOLOGY MPV 10.7 7.4 - 10.4 04/29/[address] [facility] HEMATOLOGY MCV 94.9 80.0 - 94.0 04/29/[address] [facility] HEMATOLOGY RDW 13.2 11.5 - 14.5 04/29/[address] [facility] HEMATOLOGY Platelet 123 133 - 450 04/29/2015 [facility] [place] MCHC 35.1 32.0 - 36.0 04/29/[address] [facility] HEMATOLOGY Eosinophils # 0.2 0.0 - 0.5 04/29/[address] [facility] HEMATOLOGY Segs 72.4 45.0 - 75.0 04/29/[address] [facility] HEMATOLOGY Monocytes 8.7 2.0 - 12.0 04/29/[address] [facility] HEMATOLOGY Lymphocytes 14.9 20.0 - 40.0 04/29/[address] [facility] HEMATOLOGY Lymphocytes # 0.8 1.0 - 5.5 04/29/[address] [facility] HEMATOLOGY Basophils 0.7 0.0 - 1.0 04/29/[address] [facility] HEMATOLOGY Eosinophils 3.3 0.0 - 4.0 04/29/[address] [facility] HEMATOLOGY Segs-Bands # 4.1 1.5 - 8.1 04/29/[address] [facility] HEMATOLOGY Monocytes # 0.5 0.0 - 0.8 04/29/[address] [facility] ANEMIA STUDY Vitamin B12 Lvl 637 254 - 1320 04/28/[address] [facility] ELECTROLYTES AGAP 11.6 10.0 - 20.0 04/28/[address] [facility] ELECTROLYTES Chloride Lvl 99 95 - 109 04/28/[address] [facility] ELECTROLYTES Sodium Lvl 134 135 - 145 04/28/[address] [facility] ELECTROLYTES Calcium Lvl 7.8 8.5 - 10.5 04/28/[address] [facility] ELECTROLYTES CO2 27 24 - 32 04/28/[address] [facility] ELECTROLYTES Creatinine Lvl 1.0 0.5 - 1.4 04/28/[address] [facility] ELECTROLYTES Glucose Lvl 145 70 - 99 04/28/2015 <sup>6</sup>Interpretive Data: Adult reference range values reflect the clinical guidelines
of the [place] [employer]. [facility] ELECTROLYTES BUN 18 7 - 22 04/28/[address] [facility] ELECTROLYTES eGFR 87 04/28/2015 <sup>3</sup>Result Comment: The eGFR is calculated using the CKD-EPI formula. In most young, healthy individuals the eGFR will be >90 mL/min/1.73m2. The eGFR declines with age. An eGFR of 60-89 may be normal in some populations, particularly the elderly, for whom the CKD-EPI formula has not been extensively validated. Use of the eGFR is not recommended in the following populations:& lt;br/>
Individuals with unstable creatinine concentrations, including patients and those with serious co-morbid conditions.

Patients with extremes in muscle mass or diet.

The data above are obtained from the National Kidney Disease Education Program (NKDEP) which additionally recommends that when the eGFR is used in patients with extremes of body mass index for purposes of drug dosing, the eGFR should be multiplied by the estimated BMI. [facility] HEMATOLOGY Platelet 132 133 - 450 04/28/[address] [facility] HEMATOLOGY MPV 10.5 7.4 - 10.4 04/28/2015 [facility] [place] RDW 13.1 11.5 - 14.5 04/28/2015 [facility] [place] MCHC 35.4 32.0 - 36.0 04/28/[address] [facility] HEMATOLOGY MCV 94.1 80.0 - 94.0 04/28/2015 [facility] [place] MCH 33.3 27.0 - 31.0 04/28/2015 [facility] [place] Hct 31.5 42.0 - 54.0 04/28/2015 [facility] [place] Hgb 11.1 14.0 - 18.0 04/28/2015 [facility] HEMATOLOGY RBC 3.35 4.70 - 6.10 04/28/[address] [facility] HEMATOLOGY WBC 7.8 3.7 - 10.4 04/28/[address] [facility] HEMATOLOGY Eosinophils # 0.1 0.0 - 0.5 04/28/[address] [facility] HEMATOLOGY Segs-Bands # 6.0 1.5 - 8.1 04/28/[address] [facility] HEMATOLOGY Monocytes 8.1 2.0 - 12.0 04/28/[address] [facility] HEMATOLOGY Monocytes # 0.6 0.0 - 0.8 04/28/[address] [facility] HEMATOLOGY Lymphocytes # 1.1 1.0 - 5.5 04/28/[address] [facility] HEMATOLOGY Basophils 0.5 0.0 - 1.0 04/28/[address] [facility] HEMATOLOGY Eosinophils 1.5 0.0 - 4.0 04/28/[address] [facility] HEMATOLOGY Lymphocytes 13.5 20.0 - 40.0 04/28/[address] [facility] HEMATOLOGY Segs 76.4 45.0 - 75.0 04/28/[address] [facility] TOXICOLOGY Vanco Tr TND 0500 04/28/[address] [facility] TOXICOLOGY Vanco Tr 10.4 04/28/2015 <sup>9</sup>Interpretive Data: Therapeutic Range:
Trough: 10 - 20 ug/mL
Peak: 20 - 40 ug/mL
Potential Toxicity: >80 ug/mL [facility] CHEM PANEL Procalcitonin Lvl 2.37 0.00 - 0.10 04/27/2015 <sup>8</sup>Result Comment: Critical Result(s) called to Jordin Pruitt at 04/27/2015 05:45 by SHE. Read back OK. [facility] HEMATOLOGY Sed Rate >100 mm/hr 0 - 15 04/27/[address] [facility] HEMATOLOGY Basophils # 0.1 0.0 - 0.2 04/27/[address] [facility] IMMUNOLOGY C-REACTIVE PROTEIN 175.0 <=2.9 mg/L 04/27/[address] [facility] CHEM PANEL Lactic Acid Lvl 2.0 0.5 - 2.2 04/26/[address] [facility] CHEM PANEL Alk Phos 82 39 - 136 04/26/[address] [facility] CHEM PANEL Bili Total 1.5 0.2 - 1.3 04/26/[address] [facility] CHEM PANEL B/C Ratio 13 6 - 25 04/26/[address] [facility] CHEM PANEL AST 19 0 - 37 04/26/[address] [facility] CHEM PANEL A/G Ratio 0.6 0.7 - 1.6 04/26/[address] [facility] CHEM PANEL Albumin Lvl 2.7 3.5 - 5.0 04/26/[address] [facility] CHEM PANEL ALT 25 0 - 65 04/26/[address] [facility] CHEM PANEL Globulin 4.8 2.0 - 4.0 04/26/[address] [facility] CHEM PANEL Total Protein 7.5 6.4 - 8.4 04/26/[address] [facility] HEMATOLOGY Basophils # 0.1 0.0 - 0.2 04/26/[address] [facility] SPECIAL CHEMISTRY Hgb A1C 9.2 <=5.6 % 04/26/[address] [facility] CHEM PANEL A/G Ratio 0.5 0.7 - 1.6 05/08/[address] [facility] CHEM PANEL Globulin 4.5 2.0 - 4.0 05/08/[address] [facility] CHEM PANEL B/C Ratio 11 6 - 25 05/08/[address] [facility] CHEM PANEL AGAP 11.1 10.0 - 20.0 05/08/[address] [facility] CHEM PANEL eGFR 105 05/08/2014 <sup>1</sup>Result Comment: The eGFR is calculated using the CKD-EPI formula. In most young, healthy individuals the eGFR will be >90 mL/min/1.73m2. The eGFR declines with age. An eGFR of 60-89 may be normal in some populations, particularly the elderly, for whom the CKD-EPI formula has not been extensively validated. Use of the eGFR is not recommended in the following populations:& lt;br/>
Individuals with unstable creatinine concentrations, including patients and those with serious co-morbid conditions.

Patients with extremes in muscle mass or diet.

The data above are obtained from the National Kidney Disease Education Program (NKDEP) which additionally recommends that when the eGFR is used in patients with extremes of body mass index for purposes of drug dosing, the eGFR should be multiplied by the estimated BMI. [facility] CHEM PANEL Alk Phos 89 39 - 136 05/08/[address] [facility] CHEM PANEL ALT 19 0 - 65 05/08/[address] [facility] CHEM PANEL AST 20 0 - 37 05/08/[address] [facility] CHEM PANEL Bili Total 0.4 0.2 - 1.3 05/08/2014 [facility] CHEM PANEL CO2 26 24 - 32 05/08/[address] [facility] CHEM PANEL Albumin Lvl 2.4 3.5 - 5.0 05/08/[address] [facility] CHEM PANEL Total Protein 6.9 6.4 - 8.4 05/08/[address] [facility] CHEM PANEL Calcium Lvl 8.1 8.5 - 10.5 05/08/2014 [facility] CHEM PANEL Chloride Lvl 104 95 - 109 05/08/[address] [facility] CHEM PANEL Potassium Lvl 4.1 3.5 - 5.1 05/08/[address] [facility] CHEM PANEL Creatinine Lvl 0.8 0.5 - 1.4 05/08/[address] [facility] CHEM PANEL Sodium Lvl 137 135 - 145 05/08/[address] [facility] CHEM PANEL BUN 9 7 - 22 05/08/[address] [facility] CHEM PANEL Glucose Lvl 95 70 - 99 05/08/2014 <sup>3</sup>Interpretive Data: Adult reference range values reflect the clinical guidelines
of the [place] [employer]. [facility] HEMATOLOGY Monocytes 7.9 2.0 - 12.0 05/08/[address] [facility] HEMATOLOGY Lymphocytes # 1.4 1.0 - 5.5 05/08/[address] [facility] HEMATOLOGY Segs-Bands # 5.1 1.5 - 8.1 05/08/[address] [facility] HEMATOLOGY Basophils 1.1 0.0 - 1.0 05/08/[address] [facility] HEMATOLOGY Eosinophils 2.6 0.0 - 4.0 05/08/[address] [facility] HEMATOLOGY Eosinophils # 0.2 0.0 - 0.5 05/08/[address] [facility] HEMATOLOGY Monocytes # 0.6 0.0 - 0.8 05/08/[address] [facility] HEMATOLOGY Basophils # 0.1 0.0 - 0.2 05/08/[address] [facility] HEMATOLOGY Lymphocytes 19.1 20.0 - 40.0 05/08/[address] [facility] HEMATOLOGY Segs 69.3 45.0 - 75.0 05/08/[address] [facility] HEMATOLOGY MPV 9.6 7.4 - 10.4 05/08/[address] [facility] HEMATOLOGY Platelet 166 133 - 450 05/08/[address] [facility] HEMATOLOGY RDW 13.6 11.5 - 14.5 05/08/[address] [facility] HEMATOLOGY Hgb 9.7 14.0 - 18.0 05/08/[address] [facility] HEMATOLOGY Hct 27.8 42.0 - 54.0 05/08/[address] [facility] HEMATOLOGY MCV 87.8 80.0 - 94.0 05/08/[address] [facility] HEMATOLOGY MCH 30.6 27.0 - 31.0 05/08/[address] [facility] HEMATOLOGY MCHC 34.8 32.0 - 36.0 05/08/[address] [facility] HEMATOLOGY WBC X 10x3 7.4 3.7 - 10.4 05/08/[address] [facility] HEMATOLOGY RBC X 10x6 3.16 4.70 - 6.10 05/08/[address] [facility] TOXICOLOGY Vanco Lvl 9.0 05/05/2014 <sup>5</sup>Interpretive Data: Therapeutic Range:
Trough: 10 - 20 ug/mL
Peak: 20 - 40 ug/mL
Potential Toxicity: >80 ug/mL [facility] CHEM PANEL Lactic Acid Lvl 1.6 0.5 - 2.2 05/04/[address] [facility] CHEM PANEL eGFR 111 05/04/2014 <sup>2</sup>Result Comment: The eGFR is calculated using the CKD-EPI formula. In most young, healthy individuals the eGFR will be >90 mL/min/1.73m2. The eGFR declines with age. An eGFR of 60-89 may be normal in some populations, particularly the elderly, for whom the CKD-EPI formula has not been extensively validated. Use of the eGFR is not recommended in the following populations:& lt;br/>
Individuals with unstable creatinine concentrations, including patients and those with serious co-morbid conditions.

Patients with extremes in muscle mass or diet.

The data above are obtained from the National Kidney Disease Education Program (NKDEP) which additionally recommends that when the eGFR is used in patients with extremes of body mass index for purposes of drug dosing, the eGFR should be multiplied by the estimated BMI. [facility] CHEM PANEL BUN 9 7 - 22 05/04/[address] [facility] CHEM PANEL Glucose Lvl 156 70 - 99 05/04/2014 <sup>4</sup>Interpretive Data: Adult reference range values reflect the clinical guidelines
of the [place] [employer]. [facility] CHEM PANEL Albumin Lvl 3.0 3.5 - 5.0 05/04/[address] [facility] CHEM PANEL ALT 33 0 - 65 05/04/2014 [facility] CHEM PANEL Total Protein 9.1 6.4 - 8.4 05/04/2014 [facility] CHEM PANEL CO2 24 24 - 32 05/04/2014 [facility] CHEM PANEL Calcium Lvl 9.2 8.5 - 10.5 05/04/2014 [facility] CHEM PANEL Sodium Lvl 135 135 - 145 05/04/2014 [facility] CHEM PANEL Potassium Lvl 4.1 3.5 - 5.1 05/04/2014 [facility] CHEM PANEL Creatinine Lvl 0.7 0.5 - 1.4 05/04/2014 [facility] CHEM PANEL Chloride Lvl 102 95 - 109 05/04/2014 [facility] CHEM PANEL Bili Total 0.5 0.2 - 1.3 05/04/2014 [facility] CHEM PANEL AST 32 0 - 37 05/04/2014 [facility] CHEM PANEL Alk Phos 123 39 - 136 05/04/2014 [facility] CHEM PANEL A/G Ratio 0.5 0.7 - 1.6 05/04/2014 [facility] CHEM PANEL B/C Ratio 13 6 - 25 05/04/[address] [facility] CHEM PANEL Globulin 6.1 2.0 - 4.0 05/04/[address] [facility] CHEM PANEL AGAP 13.1 10.0 - 20.0 05/04/[address] [facility] HEMATOLOGY Eosinophils # 0.3 0.0 - 0.5 05/04/[address] [facility] HEMATOLOGY Lymphocytes # 1.6 1.0 - 5.5 05/04/[address] [facility] HEMATOLOGY Monocytes # 0.4 0.0 - 0.8 05/04/[address] [facility] HEMATOLOGY Segs-Bands # 3.9 1.5 - 8.1 05/04/[address] [facility] HEMATOLOGY Basophils 0.7 0.0 - 1.0 05/04/[address] [facility] HEMATOLOGY Eosinophils 4.1 0.0 - 4.0 05/04/[address] [facility] HEMATOLOGY Monocytes 5.8 2.0 - 12.0 05/04/[address] [facility] HEMATOLOGY Lymphocytes 26.2 20.0 - 40.0 05/04/[address] [facility] HEMATOLOGY Segs 63.2 45.0 - 75.0 05/04/[address] [facility] HEMATOLOGY Hct 34.4 42.0 - 54.0 05/04/[address] [facility] HEMATOLOGY Hgb 11.8 14.0 - 18.0 05/04/[address] [facility] HEMATOLOGY RBC X 10x6 3.90 4.70 - 6.10 05/04/[address] [facility] HEMATOLOGY MPV 9.7 7.4 - 10.4 05/04/2014 [facility] [place] MCHC 34.2 32.0 - 36.0 05/04/2014 [facility] [place] MCH 30.1 27.0 - 31.0 05/04/2014 [facility] [place] MCV 88.1 80.0 - 94.0 05/04/2014 [facility] [place] WBC X 10x3 6.2 3.7 - 10.4 05/04/2014 [facility] [place] Platelet 249 133 - 450 05/04/[address] [facility] HEMATOLOGY RDW 13.3 11.5 - 14.5 05/04/[address] [facility] HEMATOLOGY Sed Rate >100 mm/hr 0 - 15 05/04/[address] [facility] IMMUNOLOGY C-REACTIVE PROTEIN 23.8 <=2.9 mg/L 05/04/[address] [facility] BEDSIDE GLUCOSE TESTING Gluc POC Lifscn 302 70 - 99 02/07/2013 [facility] <sup>1</sup>Interpretive Data: Upper Reportable Limit: 200 mg/dL. [facility] BEDSIDE GLUCOSE TESTING Comment1 Notify RN/ 02/07/[address] [facility] BEDSIDE GLUCOSE TESTING Comment1 Notify RN/ 02/07/[address] [facility] BEDSIDE GLUCOSE TESTING Gluc POC Lifscn 185 70 - 99 02/07/2013 [facility] <sup>2</sup>Interpretive Data: Upper Reportable Limit: 200 mg/dL. [facility] BEDSIDE GLUCOSE TESTING Comment1 Notify RN/ 02/07/[address] [facility] BEDSIDE GLUCOSE TESTING Gluc POC Lifscn 201 70 - 99 02/07/2013 [facility] <sup>3</sup>Interpretive Data: Upper Reportable Limit: 200 mg/dL. [facility] CHEMISTRY AGAP 11.8 10.0 - 20.0 02/06/[address] [facility] CHEMISTRY eGFR 89 02/06/2013 NA <sup>4</sup>Result Comment: The eGFR is calculated using the CKD-EPI formula. In most young, healthy individuals the eGFR will be >90 mL/min/1.73m2. The eGFR declines with age. An eGFR of 60-89 may be normal in some populations, particularly the elderly, for whom the CKD-EPI formula has not been extensively validated. Use of the eGFR is not recommended in the following populations:& lt;br/>
Individuals with unstable creatinine concentrations, including patients and those with serious co-morbid conditions.

Patients with extremes in muscle mass or diet.

The data above are obtained from the National Kidney Disease Education Program (NKDEP) which additionally recommends that when the eGFR is used in patients with extremes of body mass index for purposes of drug dosing, the eGFR should be multiplied by the estimated BMI. [facility] CHEMISTRY Glucose Lvl 146 70 - 99 02/06/2013 [place] <sup>7</sup>Interpretive Data: Adult reference range values reflect the clinical guidelines
of the [place] [employer]. [facility] CHEMISTRY Potassium Lvl 3.8 3.5 - 5.1 02/06/[address] [facility] CHEMISTRY BUN 15 7 - 22 02/06/[address] [facility] CHEMISTRY Creatinine Lvl 1.0 0.5 - 1.4 02/06/[address] [facility] CHEMISTRY Sodium Lvl 138 135 - 145 02/06/[address] [facility] CHEMISTRY Chloride Lvl 101 95 - 109 02/06/[address] [facility] CHEMISTRY CO2 29 24 - 32 02/06/[address] [facility] CHEMISTRY Calcium Lvl 8.5 8.5 - 10.5 02/06/[address] [facility] HEMATOLOGY Lymphocytes # 1.3 1.0 - 5.5 02/06/[address] [facility] HEMATOLOGY Basophils 0.8 0.0 - 1.0 02/06/[address] [facility] HEMATOLOGY Segs-Bands # 3.9 1.5 - 8.1 02/06/[address] [facility] HEMATOLOGY Eosinophils 4.1 0.0 - 4.0 02/06/[address] [facility] HEMATOLOGY Monocytes 10.3 2.0 - 12.0 02/06/[address] [facility] HEMATOLOGY Lymphocytes 21.4 20.0 - 40.0 02/06/[address] [facility] HEMATOLOGY Segs 63.4 45.0 - 75.0 02/06/[address] [facility] HEMATOLOGY Basophils # 0.0 0.0 - 0.2 02/06/[address] [facility] HEMATOLOGY Eosinophils # 0.2 0.0 - 0.5 02/06/[address] [facility] HEMATOLOGY Monocytes # 0.6 0.0 - 0.8 02/06/[address] [facility] HEMATOLOGY MPV 9.2 7.4 - 10.4 02/06/[address] [facility] HEMATOLOGY Platelet 188 133 - 450 02/06/[address] [facility] HEMATOLOGY WBC 6.1 3.7 - 10.4 02/06/[address] [facility] HEMATOLOGY MCV 93.3 80.0 - 94.0 02/06/[address] [facility] HEMATOLOGY Hct 33.8 42.0 - 54.0 02/06/[address] [facility] HEMATOLOGY RBC 3.62 4.70 - 6.10 02/06/[address] [facility] HEMATOLOGY Hgb 11.3 14.0 - 18.0 02/06/[address] [facility] HEMATOLOGY RDW 13.4 11.5 - 14.5 02/06/[address] [facility] HEMATOLOGY MCHC 33.4 32.0 - 36.0 02/06/[address] [facility] HEMATOLOGY MCH 31.2 27.0 - 31.0 02/06/[address] [facility] Microbiology Culture: Anaerobic 02/05/[address] [facility] Microbiology Culture: Wound/Abscess w/Gram Stain 02/05/[address] [facility] CHEMISTRY Vanco Tr TND midnight 02/04/[address] [facility] CHEMISTRY Vanco Tr 10.7 02/04/2013 NA <sup>11</sup>Interpretive Data: Therapeutic Range:
Trough: 10 - 20 ug/mL
Peak: 20 - 40 ug/mL
Potential Toxicity: >80 ug/mL [facility] BEDSIDE GLUCOSE TESTING Comment2 Notify RN/ 02/02/[address] [facility] Magnesium Lvl 1.9 1.8 - 2.4 02/02/[address] [facility] CHEMISTRY AGAP 10.0 10.0 - 20.0 02/02/[address] [facility] CHEMISTRY Chloride Lvl 100 95 - 109 02/02/[address] [facility] CHEMISTRY Sodium Lvl 135 135 - 145 02/02/[address] [facility] CHEMISTRY Potassium Lvl 4.0 3.5 - 5.1 02/02/[address] [facility] CHEMISTRY eGFR 101 02/02/2013 NA <sup>5</sup>Result Comment: The eGFR is calculated using the CKD-EPI formula. In most young, healthy individuals the eGFR will be >90 mL/min/1.73m2. The eGFR declines with age. An eGFR of 60-89 may be normal in some populations, particularly the elderly, for whom the CKD-EPI formula has not been extensively validated. Use of the eGFR is not recommended in the following populations:& lt;br/>
Individuals with unstable creatinine concentrations, including patients and those with serious co-morbid conditions.

Patients with extremes in muscle mass or diet.

The data above are obtained from the National Kidney Disease Education Program (NKDEP) which additionally recommends that when the eGFR is used in patients with extremes of body mass index for purposes of drug dosing, the eGFR should be multiplied by the estimated BMI. [facility] CHEMISTRY Glucose Lvl 265 70 - 99 02/02/2013 [place] <sup>8</sup>Interpretive Data: Adult reference range values reflect the clinical guidelines
of the [place] [employer]. [facility] CHEMISTRY BUN 15 7 - 22 02/02/[address] [facility] CHEMISTRY Creatinine Lvl 0.9 0.5 - 1.4 02/02/[address] [facility] CHEMISTRY Calcium Lvl 8.0 8.5 - 10.5 02/02/[address] [facility] CHEMISTRY CO2 29 24 - 32 02/02/[address] [facility] HEMATOLOGY Platelet 143 133 - 450 02/02/[address] [facility] HEMATOLOGY MCHC 33.7 32.0 - 36.0 02/02/[address] [facility] HEMATOLOGY RDW 13.4 11.5 - 14.5 02/02/[address] [facility] HEMATOLOGY MCH 31.5 27.0 - 31.0 02/02/2013 [facility] HEMATOLOGY Hct 33.0 42.0 - 54.0 02/02/2013 [facility] HEMATOLOGY MCV 93.5 80.0 - 94.0 02/02/[address] [facility] HEMATOLOGY Hgb 11.1 14.0 - 18.0 02/02/2013 [facility] HEMATOLOGY RBC 3.53 4.70 - 6.10 02/02/2013 [facility] HEMATOLOGY WBC 6.6 3.7 - 10.4 02/02/[address] [facility] HEMATOLOGY MPV 10.6 7.4 - 10.4 02/02/2013 [facility] HEMATOLOGY Basophils # 0.0 0.0 - 0.2 02/02/[address] [facility] HEMATOLOGY Eosinophils # 0.2 0.0 - 0.5 02/02/[address] [facility] HEMATOLOGY Monocytes # 0.7 0.0 - 0.8 02/02/[address] [facility] HEMATOLOGY Lymphocytes # 1.2 1.0 - 5.5 02/02/[address] [facility] HEMATOLOGY Segs-Bands # 4.4 1.5 - 8.1 02/02/[address] [facility] HEMATOLOGY Basophils 0.7 0.0 - 1.0 02/02/[address] [facility] HEMATOLOGY Eosinophils 2.6 0.0 - 4.0 02/02/[address] [facility] HEMATOLOGY Monocytes 11.3 2.0 - 12.0 02/02/[address] [facility] HEMATOLOGY Lymphocytes 17.9 20.0 - 40.0 02/02/[address] [facility] HEMATOLOGY Segs 67.5 45.0 - 75.0 02/02/[address] [facility] CHEMISTRY Phosphorus 3.4 2.5 - 4.5 02/01/[address] [facility] CHEMISTRY LDL 61 0 - 129 02/01/[address] [facility] CHEMISTRY CHD Risk 3.89 4.00 - 7.30 02/01/[address] [facility] CHEMISTRY Trig 100 0 - 200 02/01/[address] [facility] CHEMISTRY Chol 109 120 - 200 02/01/[address] [facility] CHEMISTRY HDL 28 >=35 02/01/[address] [facility] CHEMISTRY Hgb A1C 10.9 02/01/2013 NA <sup>10</sup>Interpretive Data: HbA1C% eAG(mg/dL) Interpretation
6.0 126 Very good control
6.5 140 Very good control
7.0 154 Good Control
7.5 169 Good Control
8.0 183 Marginal Control, take action to lower
8.5 197 Marginal Control, take action to lower
9.0 212 Poor Control, take action to lower
9.5 226 Poor Control, take action to lower
10.0 240 Poor Control, take action to lower [facility] CHEMISTRY Magnesium Lvl 1.6 1.8 - 2.4 02/01/[address] [facility] HEMATOLOGY Sed Rate >100 0 - 15 02/01/2013 [facility] Microbiology Culture: Blood 02/01/[address] [facility] Microbiology Culture: Blood 02/01/[address] [facility] CHEMISTRY Lactic Acid Lvl 2.7 0.5 - 2.2 02/01/2013 [facility] Microbiology Culture: Wound/Abscess w/Gram Stain 02/01/[address] [facility] URINALYSIS UA Turbidity Clear (01/31/2013 21:20:00) Clear 02/01/2013 [facility] URINALYSIS UA Color Yellow (01/31/2013 21:20:00) Yellow 02/01/2013 Normal [facility] URINALYSIS UA Sq Epi Few /LPF *NA* (01/31/2013 21:20:00) Few 02/01/2013 NA [facility] URINALYSIS UA Leuk Est Trace *ABN* (01/31/2013 21:20:00) Negative 02/01/2013 ABN [facility] URINALYSIS UA Nitrite Negative (01/31/2013 21:20:00) Negative 02/01/2013 Normal [facility] URINALYSIS UA Urobilinogen 4.0 0.1 - 1.0 02/01/2013 [facility] URINALYSIS UA Blood Large *ABN* (01/31/2013 21:20:00) Negative 02/01/2013 ABN [facility] URINALYSIS UA Bili Negative *NA* (01/31/2013 21:20:00) Negative 02/01/2013 NA [facility] URINALYSIS UA Glucose 500 mg/dL *ABN* (01/31/2013 21:20:00) Negative 02/01/2013 [facility] URINALYSIS UA Ketones Negative mg/dL *NA* (01/31/2013 21:20:00) Negative 02/01/2013 NA [facility] URINALYSIS UA Protein 100 mg/dL *ABN* (01/31/2013 21:20:00) Negative 02/01/2013 [facility] URINALYSIS UA pH 6.0 5.0 - 8.0 02/01/[address] [facility] URINALYSIS UA Spec Grav 1.027 <=1.030 02/01/2013 Normal [facility] URINALYSIS UA RBC 138 0 - 2 02/01/2013 [facility] URINALYSIS UA Bacteria Few /HPF *NA* (01/31/2013 21:20:00) None Seen 02/01/2013 [facility] URINALYSIS UA WBC 46 0 - 5 02/01/2013 [facility] CHEMISTRY AGAP 13.9 10.0 - 20.0 02/01/[address] [facility] CHEMISTRY B/C Ratio 15 6 - 25 02/01/[address] [facility] CHEMISTRY Globulin 5.5 2.0 - 4.0 02/01/2013 [facility] CHEMISTRY A/G Ratio 0.5 0.7 - 1.6 02/01/[address] [facility] CHEMISTRY eGFR 79 02/01/2013 NA <sup>6</sup>Result Comment: The eGFR is calculated using the CKD-EPI formula. In most young, healthy individuals the eGFR will be >90 mL/min/1.73m2. The eGFR declines with age. An eGFR of 60-89 may be normal in some populations, particularly the elderly, for whom the CKD-EPI formula has not been extensively validated. Use of the eGFR is not recommended in the following populations:& lt;br/>
Individuals with unstable creatinine concentrations, including patients and those with serious co-morbid conditions.

Patients with extremes in muscle mass or diet.

The data above are obtained from the National Kidney Disease Education Program (NKDEP) which additionally recommends that when the eGFR is used in patients with extremes of body mass index for purposes of drug dosing, the eGFR should be multiplied by the estimated BMI. [facility] CHEMISTRY BUN 16 7 - 22 02/01/[address] [facility] CHEMISTRY Glucose Lvl 366 70 - 99 02/01/2013 [place] <sup>9</sup>Interpretive Data: Adult reference range values reflect the clinical guidelines
of the [place] [employer]. [facility] CHEMISTRY Potassium Lvl 3.9 3.5 - 5.1 02/01/[address] [facility] CHEMISTRY Chloride Lvl 93 95 - 109 02/01/[address] [facility] CHEMISTRY Creatinine Lvl 1.1 0.5 - 1.4 02/01/[address] [facility] CHEMISTRY Sodium Lvl 130 135 - 145 02/01/[address] [facility] CHEMISTRY CO2 27 24 - 32 02/01/[address] [facility] CHEMISTRY Calcium Lvl 8.8 8.5 - 10.5 02/01/[address] [facility] CHEMISTRY Albumin Lvl 2.9 3.5 - 5.0 02/01/[address] [facility] CHEMISTRY AST 24 0 - 37 02/01/[address] [facility] CHEMISTRY Bili Total 1.0 0.2 - 1.3 02/01/[address] [facility] CHEMISTRY Total Protein 8.4 6.4 - 8.4 02/01/[address] [facility] CHEMISTRY ALT 25 0 - 65 02/01/2013 [facility] [facility] CHEMISTRY Alk Phos 114 39 - 136 02/01/[address] [facility] HEMATOLOGY Lymphocytes 9.1 20.0 - 40.0 02/01/[address] [facility] HEMATOLOGY Monocytes 7.6 2.0 - 12.0 02/01/[address] [facility] HEMATOLOGY Segs 82.9 45.0 - 75.0 02/01/2013 [facility] HEMATOLOGY Segs-Bands # 9.5 1.5 - 8.1 02/01/2013 [facility] HEMATOLOGY Basophils 0.2 0.0 - 1.0 02/01/2013 Normal [facility] HEMATOLOGY Eosinophils 0.2 0.0 - 4.0 02/01/2013 Normal [facility] HEMATOLOGY Eosinophils # 0.0 0.0 - 0.5 02/01/2013 Normal [facility] HEMATOLOGY Basophils # 0.0 0.0 - 0.2 02/01/[address] [facility] HEMATOLOGY Lymphocytes # 1.0 1.0 - 5.5 02/01/[address] [facility] HEMATOLOGY Monocytes # 0.9 0.0 - 0.8 02/01/2013 [facility] HEMATOLOGY Platelet 169 133 - 450 02/01/[address] [facility] HEMATOLOGY WBC 11.4 3.7 - 10.4 02/01/2013 [facility] HEMATOLOGY MPV 12.2 7.4 - 10.4 02/01/2013 [facility] HEMATOLOGY RDW 13.3 11.5 - 14.5 02/01/[address] [facility] HEMATOLOGY MCV 92.6 80.0 - 94.0 02/01/[address] [facility] HEMATOLOGY Hct 39.3 42.0 - 54.0 02/01/[address] [facility] HEMATOLOGY RBC 4.24 4.70 - 6.10 02/01/[address] [facility] HEMATOLOGY MCH 31.5 27.0 - 31.0 02/01/2013 [facility] HEMATOLOGY MCHC 34.0 32.0 - 36.0 02/01/[address] [facility] HEMATOLOGY Hgb 13.4 14.0 - 18.0 02/01/[address] [facility] CHEMISTRY Glucose Lvl 261 10/26/2011 NA <sup>2</sup>Interpretive Data: Reference Ranges : 0 - 7 days : 41 - 90 mg/dL 7 days - 150 yrs : 70 - 99 mg/dL (fasting), based on the clinical recommendations of the [place] [employer]. [facility] CHEMISTRY CO2 27 24 - 32 10/26/[address] [facility] CHEMISTRY Calcium Lvl 8.4 8.5 - 10.5 10/26/2011 LOW [facility] CHEMISTRY Creatinine Lvl 0.7 0.5 - 1.4 10/26/2011 Normal [facility] CHEMISTRY BUN 13 7 - 22 10/26/2011 Normal [facility] CHEMISTRY Potassium Lvl 3.9 3.5 - 5.1 10/26/2011 Normal [facility] CHEMISTRY Sodium Lvl 136 135 - 145 10/26/2011 Normal [facility] CHEMISTRY Chloride Lvl 101 95 - 109 10/26/2011 Normal [facility] CHEMISTRY AGAP 11.9 10.0 - 20.0 10/26/2011 Normal [facility] HEMATOLOGY Basophils # 0.0 0.0 - 0.2 10/26/2011 Normal [facility] HEMATOLOGY Basophils 0.6 0.0 - 1.0 10/26/2011 Normal [facility] HEMATOLOGY Segs-Bands # 2.4 1.5 - 8.1 10/26/2011 Normal [facility] HEMATOLOGY Lymphocytes # 1.2 1.0 - 5.5 10/26/2011 Normal [facility] HEMATOLOGY Eosinophils # 0.2 0.0 - 0.5 10/26/2011 Normal [facility] HEMATOLOGY Monocytes # 0.4 0.0 - 0.8 10/26/2011 Normal [facility] HEMATOLOGY RBC Morph Normal (10/26/2011 12:23:00) 10/26/2011 Normal [facility] HEMATOLOGY Plt Morph Normal (10/26/2011 12:23:00) 10/26/2011 Normal [facility] HEMATOLOGY Segs 56.6 45.0 - 75.0 10/26/2011 Normal [facility] HEMATOLOGY Lymphocytes 29.9 20.0 - 40.0 10/26/2011 Normal [facility] HEMATOLOGY Eosinophils 3.6 0.0 - 4.0 10/26/2011 Normal [facility] HEMATOLOGY Monocytes 9.3 2.0 - 12.0 10/26/2011 Normal [facility] HEMATOLOGY MPV 11.6 7.4 - 10.4 10/26/2011 [facility] HEMATOLOGY RBC 4.21 4.70 - 6.10 10/26/2011 LOW [facility] HEMATOLOGY Hct 39.9 42.0 - 54.0 10/26/2011 LOW [facility] HEMATOLOGY Hgb 14.2 14.0 - 18.0 10/26/2011 Normal [facility] HEMATOLOGY WBC 4.2 3.7 - 10.4 10/26/2011 Normal [facility] HEMATOLOGY MCHC 35.6 32.0 - 36.0 10/26/2011 Normal [facility] HEMATOLOGY Platelet 101 133 - 450 10/26/[address] [facility] HEMATOLOGY RDW 13.2 11.5 - 14.5 10/26/[address] [facility] HEMATOLOGY MCH 33.8 27.0 - 31.0 10/26/2011 [facility] HEMATOLOGY MCV 94.8 80.0 - 94.0 10/26/2011 [facility] BEDSIDE GLUCOSE TESTING Gluc POC Lifscn 285 65 - 110 10/26/2011 NC <sup>1</sup>Interpretive Data: Upper Reportable Limit: 200 mg/dL. [facility] Microbiology Culture: Wound/Abscess w/Gram Stain 10/26/[address] [facility] Pathology Reports No Data Provided for This Section Diagnostic Reports Report Value Date Source Chest 1view DX CHEST, ONE VIEW HISTORY: PICC line placement. FINDINGS: Since the prior exam dated January 24, 2017, a right PICC line has been placed which terminates at the atriocaval junction. No pneumothorax. Lungs are underinflated but clear. No pleural effusion. Normal mediastinum. A 3 x 13 mm metallic density foreign body in the left neck base is unchanged. Osseous structures unremarkable. SL: [id number] 01/29/[address] [facility] Foot 2 views DX Left foot 2 views: There has been interval resection of the distal 2nd metatarsal since the radiographs on 01/20/2017. The other osseous structures remain intact. There is no evidence of acute fractures or osteomyelitis. There is no other significant change. JESSIKA DLAWRENCE-PC 01/25/[address] [facility] Chest 1view DX Patient Name: DALLAS VALENCIA : 1965; Age: 51 years Male MR: [id number] Study: Chest 1view DX Order Time: 01/24/2017 3:00 AM CDT Clinical Indication: Abnormal chest sounds COMPARISON: 01/20/2017 FINDINGS: Frontal view of the chest has been submitted for evaluation. The cardiomediastinal silhouette is stable in size. There is no pneumonia, effusion, or pneumothorax. Stable osseous structures. IMPRESSION: No focal lung disease. SL: [id number] 01/24/[address] [facility] Foot wo contrast MRI EXAM: MRI of the left foot without contrast INDICATION: Erythema. Pain in left foot// COMPARISON: Plain films of the left foot from 01/20/2017 TECHNIQUE: Multiplanar, multisequence magnetic resonance imaging of the left foot was performed without the administration of intravenous gadolinium contrast. FINDINGS: There is focal ulceration of the plantar soft tissues of the forefoot at the level of the 2nd metatarsal head with underlying soft tissue inflammatory signal. Subtle subcortical hyperintense STIR marrow signal abnormality in the underlying plantar aspect of the 2nd metatarsal head is seen without corresponding hypointense T1 signal abnormality. No osseous erosion is seen. Prominent subchondral cystic change in the 1st metatarsal head is seen. Mild hallux valgus deformity is noted. Subcortical cystic change in the 5th metatarsal head is also noted. The visualized Achilles tendon and plantar fascia are intact. The dorsal and plantar tendons across the foot are intact. Lisfranc's ligament complex is intact. The plantar plate complexes are all intact. No extracapsular mass or cystic fluid collection is seen. Atrophy with hyperintensity of the forefoot musculature is noted, may represent acute on chronic denervation. IMPRESSION: 1. Focal ulceration of the plantar soft tissues of the forefoot at the level of the 2nd metatarsal head. 2. Mild subcortical hyperintense STIR marrow signal abnormality of the 2nd metatarsal head which likely represent stress response. Osteomyelitis is considered less likely given the lack of corresponding T1 signal abnormality. SL: LOS 01/23/[address] [facility] Ext Lower Arterial bilat w pressure US Please refer to the heart lab report, located under vascular in [facility]. 01/22/[address] [facility] Foot 2 views DX Patient Name: DALLAS VALENCIA : 1965; Age: 51 years y/o Male MR: [id number] Study: Foot 2 views DX 01/20/2017 9:34 PM [employer] Ordering Physician: Divya Zapien MD Comparison: None Clinical Indication: Left foot pain and swelling; 2 views of the left foot. Soft tissue swelling at the forefoot associated with a 5 x 16 mm ulcerative soft tissue defect on the lateral view which cannot be localized on the AP view. Hammertoe deformities are noted at the 2nd through 5th toes. Hallux valgus deformity. Vascular calcification in the soft tissues. No acute fracture, dislocation or osteolysis. Plantar calcaneal spurring. Syndesmophyte formation at the Achilles tendon insertion. Degenerative arthropathy at the intertarsal articulations of the hindfoot. SL: MELANIE 01/20/[address] [facility] Chest 1view DX Patient Name: DALLAS VALENCIA : 1965; Age: 51 years y/o Male MR: [id number] Study: Chest 1view DX dated 01/20/2017 Clinical Indication: Fever; Comparison: 09/18/2016 Small metallic density projects in the medial left neck. Clinical correlation needed. Cardiac and mediastinal structures are stable. No focal infiltrates within the lungs, no edema and no pneumothorax. SL: CSODERSYANG-PC 01/20/[address] [facility] Foot series DX RIGHT FOOT RADIOGRAPH 3 VIEW CLINICAL INDICATION: Pain in limb COMPARISON: Right foot radiograph 06/17/2016 IMPRESSION: There is amputation at the mid foot. The bones are diffusely demineralized. There are grossly stable advanced destructive changes of the bones, presumably secondary to neuropathic joint; although, chronic osteomyelitis could have a similar appearance. Grossly, no acute fractures or dislocations are visualized. There is generalized soft tissue swelling of the foot. Regional vascular calcifications are noted. No subcutaneous emphysema or radiopaque foreign bodies are identified. SL:16 01/20/[address] [facility] Chest 1view DX Chest 1view DX CLINICAL HISTORY:PICC Line Placement COMPARISON: none FINDINGS: Limited AP portable study. SUPPORT DEVICES: Right upper extremity PICC line terminates in the region of the SVC. LUNGS: Lungs are reasonably well inflated. No opacities or any significant effusion. No pneumothorax is evident. CARDIOVASCULAR: Cardiac silhouette size is within normal limits. No pulmonary edema. MEDIASTINUM/NAHID: Trachea is midline. No contour abnormality is noted. BONE AND SOFT TISSUES: No significant abnormality is evident. Multiple EKG leads and other wires project over the patient's chest. IMPRESSION: Right upper extremity PICC line terminates in the region of the SVC. No acute abnormality is noted in the chest. SL: [id number] 09/18/[address] [facility] Chest 1view DX Study: Chest 1view DX Clinical Indication: Dyspnea Comparison: Chest x-ray from 02/25/2016 FINDINGS: The cardiac silhouette is normal in size. The lungs are clear and without consolidation or congestion. No pleural effusion or pneumothorax is seen. The osseous structures are unremarkable. IMPRESSION: No acute cardiopulmonary disease. SL: MARITZA 09/15/[address] [facility] Ext Lower Arterial Doppler unilat US Please refer to the heart lab report, located under vascular in [facility]. 06/19/[address] [facility] Foot w contrast CT Patient Name: DALLAS VALENCIA : 1965; Age: 51 years y/o Male MR: [id number] Study: Right Foot w contrast CT 06/17/2016 1:28 PM CDT Ordering Physician: Maura Urban MD Clinical Indication: Erythema; right foot pain Comparison: 06/17/2016 right foot radiograph; 02/21/2016 right foot radiograph TECHNIQUE: CT of the hip is performed using a multi-detector CT. Coronal and sagittal reconstructions were obtained. 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 There is generalized infiltration of the subcutaneous and deep soft tissues of the ankle and foot with associated eccentric skin thickening. There is a thin fluid collection measuring approximately 3.2 cm in length involving the lateral aspect of the stump at the level of the 5th metatarsal shaft. A large ankle effusion is present with focal extension into the adjacent medial and lateral soft tissues at the level of the talus. Multiple subcentimeter bony fragments are seen at the periphery of this effusion. Lytic changes and fragmentation involve portions of the talus and calcaneus with anterior talus severely involved by this process. The other changes occur predominantly at the level of the subtalar joints. Well marginated lytic lesions involve the tibial plafond, medial malleolus, lateral malleolus, calcaneus, talus, navicular, cuboid, cuneiform bones, and 3rd through 5th metatarsals. IMPRESSION: 1. Postsurgical changes. 2. Generalized soft tissue changes consistent with edema and/or cellulitis. 3. Findings consistent with a 3.2 cm maximal diameter blister involving the lateral soft tissues of the stump. 4. Large ankle effusion with some extension into the medial and lateral soft tissues as described. Septic arthritis cannot be excluded. 5. Lytic changes and fragmentation involving the talus and cuboid. Well marginated erosive changes involve the other bones of the ankle and foot as described. Differential considerations include osteomyelitis, diabetic osteopathy, and/or Charcot joint. SL: [id number] 06/17/[address] [facility] Foot series DX Portable right foot 3 views: There is continued destruction of the talus and hindfoot compared to 02/21/2016. 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 No soft tissue gas is demonstrated. [id number] 06/17/[address] [facility] PICC reposition VR Fluoro time - .1 minute. Patient Name: DALLAS VALENCIA DOB: 1965; Age: 50 years y/o Male MR: [id number] * PICC repositioning. HISTORY: Malpositioned PICC line TECHNIQUE: A chest radiograph following PICC placement earlier today demonstrates the catheter to extend into the right internal jugular vein. Utilizing sterile technique, fluoroscopic guidance, the catheter was repositioned into the superior vena cava. Both lumens were noted to aspirate and inject freely. The catheter was then flushed. Spot film radiography confirms good placement of the catheter with its tip in the lower superior vena cava. Note is made of an approximately 7.5 x 2.5 mm trapezoidal radiopaque foreign body projecting over the left lower cervical region. This is of unknown significance but in retrospect is partially seen on the chest radiograph performed earlier today. IMPRESSION: 1. Successful repositioning of right upper extremity PICC into the lower superior vena cava. The catheter may be utilize for venous access. 2. Note is made of an approximately 7.5 x 2.5 mm trapezoidal radiopaque foreign body projecting over the left lower cervical region. This is of unknown significance but in retrospect is partially seen on the chest radiograph performed earlier today. : [id number] 02/25/2016 [facility] 1view DX Portable chest: The right arm PICC line tip passes into the right internal jugular vein. The cardiac silhouette is normal in size. The lungs and pleural spaces are clear. There is no other change compared to 12/28/2015. [id number] 02/25/[address] [facility] Foot w/wo contrast MRI MR RIGHT FOOT WITHOUT AND WITH IV CONTRAST HISTORY: Erythema, ulcer of amputation stump medially COMPARISON: Right foot radiography dated 02/21/2016 and right foot MRI dated 04/29/2015 FINDINGS: Since the prior MRI there is been severe diffuse infiltration of inflammatory signal and enhancement throughout the marrow of the calcaneus, talus, navicular, cuboid, lateral cuneiform, middle cuneiform, and 2nd through 5th metatarsal bases compatible with osteomyelitis. There is severe erosion and collapse of the talar head and neck, cuboid, and cuneiforms with moderate but focal cortical erosions of the calcaneus, navicular, and metatarsal bases. Postcontrast imaging demonstrates severe inflammatory soft tissue enhancement throughout the hindfoot and midfoot with scattered small abscess fluid collections. There is also marrow edema and enhancement within the distal fibula and tibia compatible with osteomyelitis. There is mild erosion of the medial malleolus of the distal tibia. IMPRESSION: 1. 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 2. Osteomyelitis throughout the distal tibia and fibula with mild erosion of the medial malleolus of the distal tibia. SL: [id number] 02/23/[address] [facility] Shoulder wo contrast CT Patient Name: DALLAS VALENCIA : 1965; Age: 50 years y/o Male MR: [id number] Study: Shoulder wo contrast CT 02/22/2016 10:15 PM CDT Ordering Physician: Bairon Escobar MD Clinical Indication: Foreign Body Localization (Soft Tissue); Comparison: Left shoulder series day before TECHNIQUE: 2.5 mm thick axial images of the left shoulder were obtained without IV contrast. Coronal and sagittal reformations were created FINDINGS: Previously visualized radiopaque foreign body is not present. In retrospect, the radiopaque foreign body is appreciated to be in the submandibular or submental soft tissues of the lower face. No acute bony abnormality is present. Glenohumeral joint effusion is present. Mild calcific tendinosis of the rotator cuff is present. Mild glenohumeral degenerative joint. No osteolysis is present. Mild heterogeneous swelling and hypoattenuation of the subscapularis muscle with adjacent mild fat stranding is present. A single punctate focus of air is present within the anterior aspect of the subscapularis muscle, with a possible roughly 2 cm abnormal soft tissue focus or phlegmon present in this region. Mild deep subcutaneous fat stranding is noted adjacent to the lateral aspect of the deltoid muscles. No regional axillary or supraclavicular lymphadenopathy is present. Visualized left lung demonstrates mild dependent subsegmental atelectasis. IMPRESSION: 1. Negative for radiopaque foreign body. In retrospect, the previously visualized radial head foreign body is present in the submandibular submental soft tissue of the lower face. 2. No acute bony abnormality. 3. Glenohumeral joint effusion. 4. Subscapularis muscle swelling with mid substance roughly 2 cm abnormal soft tissue focus or phlegmon, with a questionable single punctate focus of air within this focus. Mild overlying anteriorly adjacent deep fat stranding. However, no regional lymphadenopathy. This important finding was conveyed to nurse Deutsch from the floor today at 1425. SL: [id number] 02/22/[address] [facility] Shoulder series DX Patient Name: DALLAS VALENCIA : 1965; Age: 50 years y/o Male MR: [id number] Study: 3 view examination of the left shoulder dated 02/21/2016 at 1958. Clinical Indication: Limitation of movement; Comparison: 02/21/2016 at 0759 Radiopaque density that was in the left supraclavicular region on prior study not seen on this study. Degenerative changes seen about the left acromioclavicular joint. No fracture or dislocation. SL: CSODERSTROM-PC 02/21/[address] [facility] Foot series DX Study: Foot series DX 02/21/2016 7:22 AM CDT Patient Name: DALLAS VALENCIA MR: [id number] : 1965; Age: 50 years y/o Male Ordering Physician: Swapna Israel MD Clinical Indication: Acute right foot pain and swelling. draining ulcer at medial heel Comparison: 12/28/2015. RIGHT FOOT, 3 views: 1. Diffuse osteopenia. 2. Postoperative change of transmetatarsal amputation. No osseous destruction is seen to suggest acute osteomyelitis. However, destruction, disorganization, sclerosis, and lucency is seen in the mid foot and hindfoot either representing a neuropathic joint or chronic osteomyelitis. More sensitive evaluation for osteomyelitis may be obtained with a 3 phase bone scan or MR if clinically indicated and no contraindications are present. 3. Moderate diffuse soft tissue thickening consistent with edema and/or cellulitis. Lucency seen at the stomach near the 1st metatarsal is suspicious for an ulcer. 4. Vascular calcifications consistent with peripheral vascular disease. SL: [id number] 02/21/[address] [facility] Shoulder series DX Patient Name: DALLAS VALENCIA : 1965; Age: 50 years Male MR: [id number] Study: Shoulder series DX 02/21/2016 7:21 AM CDT Clinical Indication: Limitation of movement. Left shoulder limitation of movement. COMPARISON: None Views and laterality: 3 views left Examination of the shoulder demonstrates normal alignment at the glenohumeral joint. There are no fractures or dislocations. Mild acromioclavicular joint osteoarthritic change. The acromion and coracoid processes appear normal.The subacromial space is normal. The visualized scapula is normal. The clavicle is normal. 12 mm metallic foreign body in the left mid supraclavicular tissues. If there is further concern, followup radiographs or MRI of the shoulder may be performed for complete assessment. IMPRESSION: 1. Mild left acromioclavicular joint osteoarthritic change. 2. Left supraclavicular metallic foreign body. SL: [id number] 02/21/[address] [facility] Ankle 3 views DX Patient Name: DALLAS VALENCIA MR: [id number] : 1965; Age: 50 years y/o Male Study: Ankle 3 views DX 12/28/2015 5:16 PM [employer] Clinical Indication: Pain from a fall; Comparison: None TECHNIQUE: AP, lateral and oblique radiographs for left ankle exam. (3 views) FINDINGS: Calcific atherosclerotic vascular disease is noted in the posterior tibial artery. There is decreased bone mineral density in the mid foot. Patient has had previous amputation of the forefoot. Mild degenerative osteoarthropathy is present at the tibiotalar articulation and the talocalcaneal articulation. There is extensive soft tissue swelling on the lateral aspect of the ankle and similar swelling medially. No acute fracture or malalignment is identified. The ankle mortise is congruent. IMPRESSION: Extensive soft tissue swelling about the ankle and evidence of atherosclerotic vascular disease. Edema may be due to trauma or inflammatory disease. SL: [id number] 12/28/[address] [facility] Chest 1view DX Patient Name: DALLAS VALENCIA : 1965; Age: 50 years y/o Male MR: [id number] Study: Chest 1view DX 12/28/2015 5:21 PM [employer] Clinical Indication: Chest pain; Comparison: 04/24/2014 FINDINGS: The cardiac silhouette is normal in size. The lungs are clear and without consolidation or congestion. No pleural effusion or pneumothorax is seen. The osseous structures are unremarkable. IMPRESSION: No acute cardiopulmonary disease. SL: [id number] 12/28/[address] [facility] Foot w/wo contrast MRI MR RIGHT FOOT WITHOUT AND WITH IV CONTRAST HISTORY: Erythema, cellulitis and abscess, peripheral vascular disorder. COMPARISON: Right foot radiography dated 04/26/2015 and 05/04/2014 and right foot MRI dated 04/21/2014 FINDINGS: Forefoot amputation through the base of the metatarsals is again noted. There is large soft tissue ulceration dorsal to the fifth metatarsal base stump which measures 3 x 2 cm in area and 1 cm in depth. There is a smaller soft tissue ulcer plantar to the fifth metatarsal base which measures 1 x 1 x 1 cm. There is also irregular skin ulceration at the first metatarsal stump. There is severe superficial and deep soft tissue inflammatory signal and enhancement throughout the forefoot compatible with cellulitis and myositis. There is severe loculated tenosynovitis/tenosynovial abscess surrounding the extensor tendons at the level of the tarsal bones. This tenosynovial abscess measures 1 x 3 cm in short axis cross-section and 5 cm in length and contains small gas bubbles. No other soft tissue fluid collections are seen. There is marrow edema and enhancement at the resection margins of the fifth and fourth metatarsal stumps (long axis series 5 images 16 and 14), compatible with early osteomyelitis. There is very mild abnormal marrow signal at the resection margin of the first metatarsal stump. Considering presence of overlying skin ulceration, this is concerning for early osteomyelitis as well. There is no osteomyelitis of metatarsal stumps 2 or 3 or the tarsal bones. IMPRESSION: 1. Severe superficial and deep soft tissue inflammation enhancement with soft tissue ulcers at the first and fifth metatarsal base stumps. 2. Loculated fluid collection surrounding the extensor tendons at the level of the tarsal bones with small gas bubbles and most compatible with severe loculated extensor tenosynovitis/tenosynovial abscess. 3. Abnormal marrow signal within the fourth and fifth metatarsal base stumps compatible with osteomyelitis. 4. Very mild abnormal marrow signal at the resection margin of the first metatarsal base stump, also suspicious for early osteomyelitis. SL: 12 04/29/2015 [facility] Lower Arterial Doppler unilat US Please refer to the heart lab report, located under vascular in [facility]. 04/27/2015 [facility] Lower Arterial Doppler unilat US Right lower extremity arterial Doppler: CLINICAL HISTORY: Gangrene TECHNIQUE: Grayscale, color Doppler and spectral Doppler analysis of right lower extremities were performed with a linear high frequency transducer. FINDINGS: No significant plaque is visualized on the grayscale images in the DATA ENTRY TECHNICIAN, SFA and popliteal arteries. Triphasic flow is visualized in the DATA ENTRY TECHNICIAN and proximal portion of SFA. Monophasic flow is noted in the mid SFA, distal SFA, popliteal artery, DAY CAMP COUNSELOR and DPA vessels. The following velocities were measured: Peak systolic velocity, Right DATA ENTRY TECHNICIAN 120 cm/sec Peak systolic velocity, Right SFA proximal 100 cm/sec Peak systolic velocity, Right SFA mid 75 cm/sec Peak systolic velocity, Right SFA distal 91 cm/sec Peak systolic velocity, Right popliteal 80 cm/sec Peak systolic velocity, Right DAY CAMP COUNSELOR at ankle and 30 cm/sec Peak systolic velocity, Right DPA at ankle 101 cm/sec SL:04/26/[address] [facility] Foot series DX RIGHT FOOT RADIOGRAPH 3 VIEW INDICATION: Right foot pain and swelling, evaluate for osteomyelitis COMPARISON: Right foot radiograph 05/04/2015 IMPRESSION: 1. There has been interval amputation of the entire forefoot. There is soft tissue swelling of the ankle and foot, associated with subcutaneous emphysema. Regional vascular calcifications are noted. Correlation with the time of surgery is needed, as the presence of subcutaneous emphysema could either be secondary to recent surgery or could potentially suggests necrotizing fasciitis. 2. Grossly, there is no radiographic evidence of osteomyelitis. SL: 04/26/[address] [facility] Chest 1view PROCEDURE: Chest 1view REASON FOR EXAM: STAT portable Chest X-ray post successful insertion. Indication: Correct Line Placement. CLINICAL INFORMATION PICC Line Placement COMPARISON: 01/2013 multiple x-rays. PICC line tip is in the superior vena cava distally. There are no consolidations, effusions or pneumothorax. The heart and pulmonary vasculature are normal. The osseous structures are grossly normal. SL: 04/08/[address] [facility] Foot w/wo contrast MR MRI of the right foot with and without contrast: Exam reason: Erythema Multiple T1-weighted and STIR images were obtained in the axial, coronal and sagittal planes. After gadolinium administration, multiple sagittal gradient echo as well as axial and coronal T1-weighted images were obtained with fat suppression. The patient is recent status post amputation of the right great toe. The right great toe and the head of the first metatarsal are surgically absent. Skin and soft tissue defect are noted at the medial aspect of the forefoot. Edema at the amputation flap at the medial aspect of the forefoot is noted. Two small bony fragments are noted within the edematous amputation flap which may represent residual sesamoid bones. There is edema present at the site of the osteotomy at the distal shaft of the right first metatarsal. The osteotomy margin is irregular. Nonspecific edema at the plantar and dorsal subcutaneous fat of the right foot is noted. A small 2.3 x 7.5 mm soft tissue fluid collection is noted adjacent to the medial aspect of the right second metatarsal head. Enhancement of the soft tissues of the amputation flap at the medial aspect of the forefoot is noted. Enhancement at the distal shaft of the right first metatarsal is noted. Patchy enhancement at the deep plantar soft tissues at the medial aspect of the mid and forefoot is noted. Hammertoe deformities of the second through fifth toes are noted. Degenerative changes are noted at the interphalangeal joints of the second through fifth toes. IMPRESSION: 1. The patient is reportedly recent status post amputation of the right great toe and head of the right first metatarsal. 2. There is enhancement and edema noted in the soft tissues of the amputation flap. There is irregularity of the osteotomy margin at the distal right first metatarsal associated with edema and enhancement. 3. There is a tiny deep soft tissue fluid collection noted medial to the head of the second metatarsal. 4. While these findings may be postoperative, cellulitis with osteomyelitis of the distal shaft of the right first metatarsal cannot be excluded. Clinical correlation is recommended. SL:04/06/[address] [facility] Foot series RIGHT FOOT, 3 VIEWS. INDICATION: Pain, swelling. COMPARISON: Right foot 01/31/2013 There is question of partial destruction of the base of the proximal phalanx of the great toe. Mild periosteal reaction has developed. The findings suggest osteomyelitis. There is soft tissue swelling in this region. No fracture is evident. Vascular calcifications are noted. SL: 04/01/[address] [facility] Consultation Notes No Data Provided for This Section Discharge Summaries No Data Provided for This Section History and Physicals No Data Provided for This Section Vital Signs Vital Sign Value Date Comments Source Weight 240 03/07/2017 [id number] Height 64 03/07/2017 [id number] Temperature Oral (F) 98.9 F 03/07/2017 [id number] Heart Rate 96 03/07/2017 [id number] Diastolic (mm Hg) 88 03/07/2017 [id number] Systolic (mm Hg) 142 03/07/2017 [id number] Weight 240 02/28/2017 [id number] Height 64 02/28/2017 2.16.840.1.194807.4.391.11.93905 Temperature Oral (F) 98.6 F 02/28/2017 2.16.840.1.270711.4.391.11.87137 Heart Rate 53 02/28/2017 2.[id number] Diastolic (mm Hg) 84 02/28/2017 [id number] Systolic (mm Hg) 163 02/28/2017 2.[id number] Weight 240 02/14/2017 2.16.840.1.992985.4.391.11.02659 Height 64 02/14/2017 2.16.840.1.413289.4.391.11.33869 Temperature Oral (F) 98.8 F 02/14/2017 2.16.840.1.594840.4.391.11.09515 Heart Rate 97 02/14/2017 2.16.840.1.623467.4.391.11.38538 Diastolic (mm Hg) 78 02/14/2017 2.16.840.1.188084.4.391.11.35462 Systolic (mm Hg) 128 02/14/2017 [id number] Systolic (mm Hg) 113 01/30/[address] [facility] Diastolic (mm Hg) 75 01/30/[address] [facility] Temperature Oral (F) 97.5 F 01/30/[address] [facility] Heart Rate 96 01/30/[address] [facility] Respitory Rate 20 01/30/[address] [facility] Systolic (mm Hg) 128 01/30/[address] [facility] Diastolic (mm Hg) 93 01/30/[address] [facility] Respitory Rate 20 01/30/[address] [facility] Heart Rate 88 01/30/[address] [facility] Temperature Oral (F) 98.2 F 01/30/[address] [facility] Temperature Oral (F) 98.2 F 01/30/2017 [facility] Systolic (mm Hg) 140 01/30/2017 [facility] Diastolic (mm Hg) 87 01/30/[address] [facility] Heart Rate 81 01/30/2017 [facility] Respitory Rate 18 01/30/2017 [facility] Height 162.56 cm 01/21/2017 [facility] Weight 116.932 01/21/2017 [facility] BMI Calculated 44.25 01/21/2017 [facility] Weight 113.636 01/20/2017 [facility] BMI Calculated 41.69 01/20/[address] [facility] Height 165.1 cm 01/20/2017 [facility] Systolic (mm Hg) 148 09/20/2016 [facility] Diastolic (mm Hg) 83 09/20/[address] [facility] Heart Rate 75 09/20/[address] [facility] Respitory Rate 17 09/20/[address] [facility] Temperature Oral (F) 97.9 F 09/20/[address] [facility] Temperature Oral (F) 98.1 F 09/20/[address] [facility] Heart Rate 67 09/20/2016 [facility] Systolic (mm Hg) 162 09/20/2016 [facility] Diastolic (mm Hg) 89 09/20/2016 [facility] Respitory Rate 17 09/20/2016 [facility] Systolic (mm Hg) 153 09/20/2016 [facility] Diastolic (mm Hg) 83 09/20/2016 [facility] Respitory Rate 17 09/20/[address] [facility] Temperature Oral (F) 97.7 F 09/20/[address] [facility] Heart Rate 64 09/20/2016 [facility] BMI Calculated 39.71 09/15/2016 [facility] Weight 115 09/15/2016 [facility] Height 170.18 cm 09/15/2016 [facility] BMI Calculated 38.45 09/15/2016 [facility] Weight 111.364 09/15/2016 [facility] Height 170.18 cm 09/15/2016 [facility] Respitory Rate 18 06/22/2016 [facility] Systolic (mm Hg) 144 06/22/2016 [facility] Diastolic (mm Hg) 86 06/22/[address] [facility] Heart Rate 73 06/22/[address] [facility] Temperature Oral (F) 98 F 06/22/[address] [facility] Temperature Oral (F) 98.1 F 06/22/2016 [facility] Heart Rate 73 06/22/2016 [facility] Respitory Rate 17 06/22/2016 [facility] Systolic (mm Hg) 143 06/22/2016 [facility] Diastolic (mm Hg) 81 06/22/2016 [facility] Heart Rate 71 06/22/2016 [facility] Temperature Oral (F) 98.2 F 06/22/2016 [facility] Systolic (mm Hg) 142 06/22/2016 [facility] Diastolic (mm Hg) 83 06/22/2016 [facility] Respitory Rate 18 06/22/2016 [facility] Height 165.1 cm 06/17/2016 [facility] Weight 111.534 06/17/2016 [facility] BMI Calculated 40.92 06/17/2016 [facility] Height 165.1 cm 06/17/2016 [facility] BMI Calculated 40.02 06/17/2016 [facility] Weight 109.091 06/17/[address] [facility] Heart Rate 78 02/25/[address] [facility] Temperature Oral (F) 98.2 F 02/25/[address] [facility] Systolic (mm Hg) 151 02/25/2016 [facility] Diastolic (mm Hg) 87 02/25/2016 [facility] Respitory Rate 19 02/25/[address] [facility] Temperature Oral (F) 98.5 F 02/25/2016 [facility] Respitory Rate 18 02/25/2016 [facility] Systolic (mm Hg) 143 02/25/2016 [facility] Diastolic (mm Hg) 84 02/25/[address] [facility] Heart Rate 78 02/25/2016 [facility] Respitory Rate 17 02/25/[address] [facility] Heart Rate 82 02/25/2016 [facility] Systolic (mm Hg) 155 02/25/2016 [facility] Diastolic (mm Hg) 88 02/25/[address] [facility] Temperature Oral (F) 98.6 F 02/25/2016 [facility] Weight 93.295 02/23/2016 [facility] Weight 98.636 02/21/2016 [facility] BMI Calculated 36.19 02/21/2016 [facility] Height 165.1 cm 02/21/2016 [facility] Height 165.1 cm 02/21/2016 [facility] Weight 98.636 02/21/2016 [facility] BMI Calculated 36.19 02/21/2016 [facility] Heart Rate 80 12/29/2015 [facility] Respitory Rate 18 12/29/2015 [facility] Systolic (mm Hg) 126 12/29/2015 [facility] Diastolic (mm Hg) 78 12/29/2015 [facility] Temperature Oral (F) 98.4 F 12/29/[address] [facility] Heart Rate 80 12/29/2015 [facility] Respitory Rate 18 12/29/2015 [facility] Systolic (mm Hg) 138 12/29/[address] [facility] Diastolic (mm Hg) 78 12/29/[address] [facility] Temperature Oral (F) 98.4 F 12/29/2015 [facility] Respitory Rate 18 12/29/[address] [facility] Heart Rate 88 12/29/2015 [facility] Systolic (mm Hg) 142 12/29/2015 [facility] Diastolic (mm Hg) 86 12/29/[address] [facility] Temperature Oral (F) 98.2 F 12/29/[address] [facility] Weight 99.091 12/28/[address] [facility] BMI Calculated 36.35 12/28/[address] [facility] Height 165.1 cm 12/28/[address] [facility] Weight 246.8 06/04/2015 [facility] Height 56.0 06/04/2015 [facility] Temperature Oral (F) 98.6 F 06/04/2015 [facility] Heart Rate 100 06/04/2015 [facility] Diastolic (mm Hg) 79 06/04/2015 [facility] Systolic (mm Hg) 117 06/04/2015 [facility] Respitory Rate 20 06/04/2015 [facility] Respitory Rate 16 05/03/[address] [facility] Heart Rate 68 05/03/2015 [facility] Systolic (mm Hg) 144 05/03/2015 [facility] Diastolic (mm Hg) 88 05/03/[address] [facility] Temperature Oral (F) 97.9 F 05/03/[address] [facility] Systolic (mm Hg) 135 05/03/2015 [facility] Diastolic (mm Hg) 82 05/03/2015 [facility] Respitory Rate 16 05/03/[address] [facility] Heart Rate 73 05/03/[address] [facility] Temperature Oral (F) 98.8 F 05/03/[address] [facility] Temperature Oral (F) 97.9 F 05/03/[address] [facility] Heart Rate 72 05/03/[address] [facility] Respitory Rate 16 05/03/2015 [facility] Systolic (mm Hg) 132 05/03/[address] [facility] Diastolic (mm Hg) 82 05/03/[address] [facility] Weight 110.455 04/30/[address] [facility] Height 165.1 cm 04/26/[address] [facility] BMI Calculated 36.69 04/26/2015 [facility] Weight 100 04/26/2015 [facility] Weight 109.091 04/26/2015 [facility] Systolic (mm Hg) 150 05/09/2014 [facility] Diastolic (mm Hg) 88 05/09/[address] [facility] Respitory Rate 17 05/09/[address] [facility] Heart Rate 77 05/09/[address] [facility] Temperature Oral (F) 98.0 F 05/09/[address] [facility] Heart Rate 76 05/09/[address] [facility] Temperature Oral (F) 98.0 F 05/09/2014 [facility] Systolic (mm Hg) 149 05/09/2014 [facility] Respitory Rate 17 05/09/2014 [facility] Diastolic (mm Hg) 83 05/09/[address] [facility] Temperature Oral (F) 98.5 F 05/09/[address] [facility] Heart Rate 80 05/09/[address] [facility] Diastolic (mm Hg) 82 05/09/[address] [facility] Respitory Rate 16 05/09/[address] [facility] Systolic (mm Hg) 142 05/09/[address] [facility] Weight 109.091 05/04/[address] [facility] BMI Calculated 40.02 05/04/[address] [facility] Height 165.1 cm 05/04/[address] [facility] Weight 109 04/24/[address] [facility] BMI Calculated 39.99 04/24/2014 [facility] Height 165.1 cm 04/24/[address] [facility] Heart Rate 72 02/07/2013 [facility] Systolic (mm Hg) 150 02/07/[address] [facility] Respitory Rate 20 02/07/2013 [facility] Diastolic (mm Hg) 82 02/07/[address] [facility] Temperature Oral (F) 98.5 F 02/07/[address] [facility] Temperature Oral (F) 98.5 F 02/07/2013 [facility] Diastolic (mm Hg) 82 02/07/2013 [facility] Systolic (mm Hg) 150 02/07/[address] [facility] Respitory Rate 20 02/07/[address] [facility] Temperature Oral (F) 98.5 F 02/07/[address] [facility] Respitory Rate 20 02/07/2013 [facility] Systolic (mm Hg) 150 02/07/2013 [facility] Diastolic (mm Hg) 82 02/07/[address] [facility] Heart Rate 72 02/07/[address] [facility] Heart Rate 74 02/07/2013 [facility] Weight 116 02/07/2013 [facility] Height 165.1 cm 02/07/2013 [facility] Height 165.1 cm 02/01/2013 [facility] Weight 109.091 02/01/2013 [facility] Weight 109.091 01/31/[address] [facility] Height 165.1 cm 01/31/[address] [facility] Temperature Oral (F) 98.6 F 10/26/[address] [facility] Heart Rate 74 10/26/[address] [facility] Respitory Rate 18 10/26/[address] [facility] Systolic (mm Hg) 138 10/26/[address] [facility] Diastolic (mm Hg) 78 10/26/[address] [facility] Respitory Rate 16 10/26/[address] [facility] Heart Rate 86 10/26/[address] [facility] Temperature Oral (F) 98.1 F 10/26/[address] [facility] Weight 116.364 10/26/[address] [facility] Height 165.10 cm 10/26/[address] [facility] Systolic (mm Hg) 168 10/26/[address] [facility] Diastolic (mm Hg) 49 10/26/[address] [facility] Encounters Location Location Details Encounter Type Encounter Number Reason For Visit Attending Provider ADM Date DC Date Status Source [facility] Emergency [id number] YIFAN BURGESS 10/26/2011 10/26/2011 Discharged [facility] [id number] DIABETIC FOOT ADNAN ASA 01/31/2013 02/07/2013 Active [facility] [place] [id number] OSTEROMYELITIS ADNAN ASA 02/08/2013 Active [facility] [id number] TASO MOUGOURIS 04/01/2013 04/09/2013 Discharged [facility] Recurring [id number] Bairon Luz 04/26/2014 05/26/2014 [facility] Inpatient [id number] [facility] Luz 05/04/2014 05/09/2014 [facility] Inpatient [id number] Ayla Fletcher 04/26/2015 05/03/[address] [facility] Ayla Fletcher MD Initial visit [id number] 06/04/2015 06/04/2015 Ayla Fletcher [facility] Unknown [id number] 08/18/2015 08/18/2015 [facility] Unknown [id number] 08/18/2015 08/18/2015 [facility] home health MEAGHAN [id number] 09/28/2015 09/28/2015 [facility] [id number] Nola Sanchez 12/28/2015 12/29/2015 [facility] Inpatient [id number] Bairon Escobar 02/21/2016 02/25/2016 [facility] Inpatient [id number] Teddy Chilel 06/17/2016 06/22/2016 [facility] Inpatient [id number] Mikaela Bhaskar 09/15/2016 09/21/2016 [facility] Inpatient [id number] Nieves Patel 01/20/2017 01/30/2017 [facility] [place] [id number] FOOT OSTEOMYLITIS PHUONG ZAPIEN Active [facility] Procedures Procedure Code Date Perfomer Comments Source Amputation great toe [id number] 04/02/[address] [facility] Amputation of toe [id number] [facility] Amputation of the foot [id number] [facility] Assessment and Plan Assessment and Plan Date Source Extracted from:Title: Progress Note * Author: Nieves Patel MD Date: 01/30/17 Impression and Plan Sepsis 2/2 infected diabetic foot ulcer resolved L infected diabetic foot ulcer Osteomyelitis of L second metatarsal head Moderate peripheral vascular disease 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 ceftriaxone for 3 weeks . Hope fully DC on TOmorrow Extracted from:Title: History and Physical Author: Paul Najera DO Date: 01/20/17 Assessment/Plan 1.Sepsis secondary to below, cxr neg, will check ua. Ordered: Admit/Condition 2.Cellulitis on right and left foot. started on vanco/cefepime. await cx, appreciate ID recs, ?need for mri or to treat as chronic osteo? foot xrays with stable destructive changes. arterial doppler last year with mild vascular disease on right side, in 2013 mild vasculardisease on both sides. previous mri with advanced erosive osteo throughout R foot and distal tib and fib. Ordered: Admit/Condition 3.Hyponatremia repeat bmp in am, cont ivf. 4.Lactic acidosis at 2.3, repeat level, cont IVF. 5.Type II diabetes mellitus with foot ulcer hyperglycemia, likely related to infection. Restarted on nph, ivf, SSI, dm diet Ordered: Admit/Condition 6.Amputation at midfoot with dr. bob in the past per patient. has not followed up outside of hospital. 7.HTN (hypertension) restart home medsonce verified. Orders: acetaminophen, 650 mg, Route: PO, Drug form: TAB, Q4H, Dosing Weight 113.636, kg, PRN Pain 1-3/Temp > 100.4 F, Start date: 01/20/17 18:23:00 AIRCRAFT INSTRUMENT MECHANIC, Duration: 30 day, Stop date: 02/19/17 18:22:00 CDT acetaminophen-hydrocodone 325 mg-5 mg oral tablet, 1 tab, Route: PO, Dosing Weight 113.636, kg, Q4H, PRN Pain Score 4-6, Start date: 01/20/17 18:23:00 AIRCRAFT INSTRUMENT MECHANIC, Duration: 30 day, Stop date: 02/19/17 18:22:00 CDT amLODIPine, 10 mg, Route: PO, Drug form: TAB, Daily, Dosing Weight 113.636, kg, Start date: 01/21/17 9:00:00 CDT, Duration: 30 day, Stop date: 02/19/17 9:00:00 CDT cefepime, 1 gm, Route: IVPB, ABXQ8H, Dosing Weight 113.636, kg, (CrCl >/=50 ml/min), Start date: 01/20/17 19:00:00 AIRCRAFT INSTRUMENT MECHANIC, Duration: 30 day, Stop date: 02/19/17 11:00:00 CDT Dextrose 50% Syringe, 25 mL, Route: IVP, Dosing Weight 113.636, kg, PRN, PRN Blood Glucose Results, Start date: 01/20/17 18:25:00 AIRCRAFT INSTRUMENT MECHANIC, Duration: 30 day, Stop date: 02/19/17 19:24:00 CDT Dextrose 50% Syringe, 50 mL, Route: IVP, Dosing Weight 113.636, kg, PRN, PRN Blood Glucose Results, Start date: 01/20/17 18:25:00 AIRCRAFT INSTRUMENT MECHANIC, Duration: 30 day, Stop date: 02/19/17 19:24:00 CDT glucagon, 1 mg, Route: IM, PRN, Dosing Weight 113.636, kg, PRN Blood Glucose Results, Start date: 01/20/17 18:25:00 AIRCRAFT INSTRUMENT MECHANIC, Duration: 30 day, Stop date: 02/19/17 19:24:00 CDT insulin aspart, 2 unit, Route: SUB-Q, TID-Before Meals, Dosing Weight 113.636, kg, PRN Blood Glucose Results, Start date: 01/20/17 18:25:00 AIRCRAFT INSTRUMENT MECHANIC, Duration: 30 day, Stop date: 02/19/17 18:24:00 CDT insulin aspart, 1 unit, Route: SUB-Q, TID-Before Meals, Dosing Weight 113.636, kg, PRN Blood Glucose Results, Start date: 01/20/17 18:25:00 AIRCRAFT INSTRUMENT MECHANIC, Duration: 30 day, Stop date: 02/19/17 18:24:00 CDT insulin aspart, 3 unit, Route: SUB-Q, TID-Before Meals, Dosing Weight 113.636, kg, PRN Blood Glucose Results, Start date: 01/20/17 18:25:00 AIRCRAFT INSTRUMENT MECHANIC, Duration: 30 day, Stop date: 02/19/17 18:24:00 CDT insulin aspart, 4 unit, Route: SUB-Q, TID-Before Meals, Dosing Weight 113.636, kg, PRN Blood Glucose Results, Start date: 01/20/17 18:25:00 AIRCRAFT INSTRUMENT MECHANIC, Duration: 30 day, Stop date: 02/19/17 18:24:00 CDT insulin aspart, 5 unit, Route: SUB-Q, TID-Before Meals, Dosing Weight 113.636, kg, PRN Blood Glucose Results, Start date: 01/20/17 18:25:00 AIRCRA[employer] IN[employer]UMENT MECH[employer]IC, Duration: 30 day, Stop date: 02/19/17 18:24:00 CDT insulin isophane-NPH, 10 unit, Route: SUB-Q, BID, Dosing Weight 113.636, kg, Start date: 01/21/17 9:00:00 CDT, Duration: 30 day, Stop date: 02/19/17 17:00:00 CDT ondansetron, 4 mg, Route: IVP, Q6H, Dosing Weight 113.636, kg, PRN Nausea and Vomiting, Start date: 01/20/17 18:23:00 [employer]UMENT MECH[employer]IC, Duration: 30 day, Stop date: 02/19/17 18:22:00 CDT Sodium Chloride 0.9% IV 1000 mL, 1,000 mL, Rate: 100 ml/hr, Infuse over: 10 hr, Route: IV, Dosing Weight 113.636 kg, Total Volume: 1,000, Start date: 01/20/17 18:26:00 AIRCRA[employer]UMENT MECH[employer]IC, Duration: 30 day, Stop date: 02/19/17 18:25:00 CDT Ambulation Bedrest CDM Admission Acute Care Post ED CDM Aspart (Novolog) for Starting Correction Doses CDM Insulin Sub-Q Orders for patients on Oral Nutrition Culture: Wound/Abscess w/Gram Stain Culture: Wound/Abscess w/Gram Stain Diet Carbohydrate Controlled Hypoglycemia Management Hypoglycemia Management Notify MD Notify MD Notify MD Notify MD Provide Education AC4 Patient Education AC4 Consult Physician AC4 Point of Care Blood Glucose AC4 Point of Care Blood Glucose AC4 Pulse Oximetry Spot Check by Nurse Vital Signs Prophylaxis lovenox Disposition pending wound care, iv anbx, wound cx 01/30/[address] [facility] Extracted from:Title: Clinical Document Author: Jayleen Ríos MD Date: 09/20/16 Progress Daily [facility] Completed: Sep, 16:53 by Jayleen Ríos MD RM: 156 - 1P, SE C1A VALENCIAD[place]AS DUNCAN 51y (: 1965) M Attending: Mikaela Muro MD Service: Internal Medicine Reason for Admission: DEHYDRATION, DIABETIC KETOSIS, DIABETIC FOOT INFECTION Working DRG: MISC DISORDERS OF NUTRITION,METABOLISM,FLUIDS/ELECTROLYTES W/O SENIOR CARE Code status: Full Code [Ordered] Current diet: Isolation: Contact [Ordered] Allergies: penicillins SUBJECTIVE feels better. c/s noted OBJECTIVE HEENT KAYLIN Neck supple RS Equal AE b/l no added sounds CVS S1S2 normal no murmur P/A soft Nontender,not distended BS +ve no mass COP AAox3 NO FND Skin rt foot plantar area 2.42 x 2.4 cm x2 deep bone palpable draining serosaguinous drainage. open wound 2x1x3 opnening anterior draining seroisanguinous dranage (patient has been walking on it )both are not connected looks better ASSESSMENT and Plan Sage stage 3 DFU with OM and infected wound f/u c/s ,pack the wound with iodoform gauze looks better Explained to the patient the need for NWB/f/u as out patient on regualar basis . He has high risk for limb los s with [facility] follow up abx per id as he cannot do iv abx and f/u DIAGNOSES and PROBLEMS Ready for Discharge (Yes/No)? Moy still necessary (Yes/No): Line still necessary (Yes/No): 24hr Labs 09/20 1557 Glucose POC 197 H 09/20 1123 Glucose POC 213 H 09/20 0629 Glucose POC 163 H 09/20 0610 CRP 43.4 H 09/20 0238 Glucose POC 118 H 09/19 2204 Glucose POC 160 H Vitals Tmp(F) Pulse BP RR SpO2 FIO2 09/20 11:52 98.1 67 162/89 17 97 --- 09/20 08:00 97.7 64 153/83 17 96 --- 09/20 04:26 97.7 70 145/74 18 99 --- 09/20 00:35 98.3 70 124/75 18 97 --- 09/19 21:36 98.4 72 144/83 18 97 --- 24 Hr Tmax: 98.4F (36.89c) at 09/19 21:36 Vital Signs are the last 5 in the past 48 hours. Date Wt(kg) Wt(lb) Ht(cm) Ht(in) Method 09/20 111.51 245.31 Measured 09/19 112.05 246.50 Measured 09/18 116.00 255.20 Measured 09/15 (initial) 111.36 245.00 170.18 67.00 Estimated I&O Record In Out Bal 09/20 24hr Tot 300 0 300 09/19 24hr Tot 746 0 746 Medications (23) Active Scheduled Meds (6): 09/20/16 amLODIPine 5 mg PO Daily 09/16/16 ceFAZolin 2 gm IVPB ABXQ8H 200 ml/hr 09/19/16 ciprofloxacin 400 mg IVPB [id number] 200 ml/hr 09/15/16 (Suspended) heparin 5,000 unit SUB-Q Q12H 09/19/16 insulin isophane (insulin isophane-NPH) 30 unit SUB-Q BID 09/20/16 metroNIDAZOLE (Flagyl) 500 mg PO TID Unscheduled Meds: None PRN Meds (17): 09/15/16 Dextrose 50% in Water IV (Dextrose 50% Syringe) 12.5 gm IVP PRN 09/15/16 Dextrose 50% in Water IV (Dextrose 50% Syringe) 25 gm IVP PRN 09/19/16 acetaminophen (Tylenol) 650 mg PO Q6H 09/15/16 docusate 100 mg PO BID 09/15/16 glucagon 1 mg IM PRN 09/15/16 insulin aspart 3 unit SUB-Q TID-Before Meals 09/15/16 insulin aspart 6 unit SUB-Q TID-Before Meals 09/15/16 insulin aspart 9 unit SUB-Q TID-Before Meals 09/15/16 insulin aspart 12 unit SUB-Q TID-Before Meals 09/15/16 insulin aspart 15 unit SUB-Q TID-Before Meals 09/15/16 insulin aspart 1 unit SUB-Q Bedtime 09/15/16 insulin aspart 2 unit SUB-Q Bedtime 09/15/16 insulin aspart 3 unit SUB-Q Bedtime 09/15/16 insulin aspart 4 unit SUB-Q Bedtime 09/16/16 nitroglycerin (nitroglycerin 0.4 mg sublingual tablet) 0.4 mg SL Q5Min 09/15/16 ondansetron 4 mg IVP Q6H 09/15/16 sodium chloride (Saline Flush 0.9%) 10 ml IVP PRN One Time Meds: None Continuous Infusions: None Extracted from:Title: UIP Hospitalist Consultation Author: Nieves Patel MD Date: 09/16/16 Impression and Plan ASSESSMENT Early DKA resolved Poorly controlled type 2 diabetes mellitus complciated by neuropathy Stage III ulcer of right foot with chronic osteomyelitis s/p bedside excisional debridement 09/15/16 Charcot Joint RODRÍGUEZ prerenal - resolved Dehydration - Better Thrombocytopenia Hypomagnesemia Benign essential hypertension Diabetic foot ulcer of right lower extremity chronic Plan Continue insulin to achieve the ischemic control Wound Care team on board appreciate input Currently on vancomycin am labs consult ID for foot Bedside glucose monitoring Replace electrolytes DVTP- heparin on hold due to bedside excisional debridement yesterday 09/21/2016 Froilan Extracted from:Title: Clinical Document Author: Heather Doe NP Date: 06/22/16 Progress Note - Daily [facility] Completed: , JUN 22, 2016, 08:07 by Heather Doe NP RM: 143 - 1P, SE C1A [place] VALENCIA 51y (: 1965) M Attending: Teddy Chilel MD Service: Internal Medicine Reason for Admission: RIGHT FOOT-STUMP INFECTION, R/O SPESIS Working DRG: Diabetes w CC Code status: Full Code [Ordered] Current diet: Isolation: Contact [Ordered] Allergies: penicillins SUBJECTIVE Pt seen and examined. Resting comfortably, discussed d/c planning. OBJECTIVE 24hr Labs 06/22 0643 Glucose POC 107 H 06/22 0336 Glucose POC 138 H 06/21 2347 Vanco Tr TND 23:30 Vanco Tr 16.1 06/21 2049 Glucose POC 170 H 06/21 1559 Glucose POC 168 H 06/21 1044 Glucose POC 191 H Moy still necessary (Yes/No): Line still necessary (Yes/No): Vitals Tmp(F) Pulse BP RR SpO2 FIO2 06/22 08:00 98.1 73 143/81 17 96 --- 06/22 04:43 98.2 71 142/83 18 99 --- 06/22 00:14 98.1 72 121/74 18 97 --- 06/21 20:23 98.3 77 149/83 18 97 --- 06/21 16:11 98 80 116/69 18 98 --- 24 Hr Tmax: 98.3F (36.83c) at 08 20:23 Vital Signs are the last 5 in the past 48 hours. Date Wt(kg) Wt(lb) Ht(cm) Ht(in) Method 06/17 111.53 245.37 165.10 65.00 Measured 06/16 (initial) 109.09 240.00 165.10 65.00 Estimated I&O Record In Out Bal 06/21 24hr Tot 1941 1924 17 06/20 24hr Tot 1927 1740 188 Medications (23) Active Scheduled Meds (6): 06/18/16 amLODIPine 5 mg PO Daily 06/20/16 cefepime + sodium chloride 0.9% INJ 100 mL 2 gm IVPB ABXQ8H 200 ml/hr 06/19/16 insulin detemir (Levemir FlexPen) 20 unit SUB-Q Bedtime 06/17/16 metFORMIN 1,000 mg PO BID 06/20/16 metroNIDAZOLE (Flagyl) 500 mg IVPB ABXQ8H 200 ml/hr 06/20/16 vancomycin + sodium chloride 0.9% INJ 250 mL 1,000 mg IVPB ABXQ8H 250 ml/hr Unscheduled Meds: None PRN Meds (17): 06/17/16 Dextrose 50% in Water IV (Dextrose 50% Syringe) 12.5 gm IVP PRN 06/17/16 Dextrose 50% in Water IV (Dextrose 50% Syringe) 25 gm IVP PRN 06/17/16 acetaminophen-hydrocodone ([place] 10/325 oral tablet) 1 tab PO Q4H 06/17/16 acetaminophen 650 mg PO Q4H 06/17/16 glucagon 1 mg IM PRN 06/17/16 insulin aspart 2 unit SUB-Q TID-Before Meals 06/17/16 insulin aspart 4 unit SUB-Q TID-Before Meals 06/17/16 insulin aspart 6 unit SUB-Q TID-Before Meals 06/17/16 insulin aspart 8 unit SUB-Q TID-Before Meals 06/17/16 insulin aspart 10 unit SUB-Q TID-Before Meals 06/17/16 insulin aspart 1 unit SUB-Q Bedtime 06/17/16 insulin aspart 2 unit SUB-Q Bedtime 06/17/16 insulin aspart 3 unit SUB-Q Bedtime 06/17/16 insulin aspart 4 unit SUB-Q Bedtime 06/17/16 morphine Sulfate 2 mg IVP Q4H 06/17/16 nitroglycerin 0.4 mg SL Q5Min 06/17/16 ondansetron 4 mg IVP Q6H One Time Meds: None Continuous Infusions: None ASSESSMENT and EXAM GENERAL APPEARANCE: Awake, alert, oriented x 3. Resting comfortably, denies pain at this time. HEENT: Normocephalic and atraumatic. Pupils equal, reactive to light. Conjunctiva is clear. NECK: Supple. No jugular venous distention. LUNGS: Clear to auscultation bilaterally without rales, rhonchi or wheezes. CARDIOVASCULAR: S1, S2, regular rate and rhythm. ABDOMEN: Soft, nondistended, nontender. Positive bowel sounds. EXTREMITIES: No cyanosis, clubbing, or edema noted. MUSCULOSKELETAL: Moving all extremities. SKIN: Right foot with lateral abscess IMPRESSION: 1. Diabetic foot wound. 2. Diabetes mellitus type 2. 3. Hypertension. 4. Fever, resolved Plan: podiatry consult, no surgical intervention at this time abx per ID monitor bp and bs PT non weight bearing to right foot Discussed with ID, march d/c home with PO abx Keflex 500mg q6 x 21 days fu with ID and podiatry Ready for Discharge (Yes/No)? TEACHING ATTESTATION Extracted from:Title: Clinical Document Author: Maura Urban MD Date: 06/17/16 [facility] INFECTIOUS DISEASES CONSULTATION NOTE Maura Urban M.D. Divya Zapien M.D. Nikos Sam M.D. REFERRING PHYSICIAN: Dr. Teddy Chilel REASON FOR CONSULTATION: Diabetic Foot Wound CHIEF COMPLAINT: Right foot drainage HISTORY OF PRESENT ILLNESS: Mr. Dallas Valencia is a 51 year old gentleman who presents with draining coming out of his right foot starting yesterday with associated pain. He has a history of diabetes and TMA amputations of the right foot about 2 years ago. This discharge started occuring while walking on the residual foot yesterday outside on his driveway in socks and believes he cut himself on the concrete. He denies fever or chills. He is known to our ID service from last admission in February. He was treated with ceftriaxone for MSSA osteomyelitis. He received about 4 weeks of treatment at [facility] then left early to address issues at home so cut his treatment two weeks short. REVIEW OF SYSTEMS: CONSTITUTIONAL: Denies fever, chills, or night sweats. EYES: Denies blurry vision or eye pain. ENT: Denies ear pain, nasal drainage, or sore throat. RESPIRATORY: Denies shortness of breath or cough. CARDIOVASCULAR: Denies chest pain or palpitations. GASTROINTESTINAL: Denied nausea, vomiting, diarrhea, or abdominal pain. GENITOURINARY: Denies dysuria, frequency, or urgency. MUSCULOSKELETAL: + Right foot drainage NEUROLOGIC: + Decreased foot sensation SKIN: No rashes or lesions. ENDOCRINE: Denies history of polyuria, polydipsia, heat or cold intolerance. HEME/LYMPH: Denies bleeding, bruising, or swollen glands. PSYCH: No depression or anxiety PAST MEDICAL/SURGICAL HISTORY: DM, PVD, Osteomyelitis, Diabetic Foot Infection Transmetatarsal Amputation SOCIAL HISTORY: Occasional alcohol use Former tobacco use FAMILY HISTORY: DM PHYSICAL EXAMINATION: Vitals Tmp(F) Pulse BP RR SpO2 FIO2 06/17 08:26 98.6 96 160/84 18 97 --- 06/17 04:00 99.2 89 159/80 18 99 --- 06/17 01:57 98.1 90 136/68 19 98 --- 06/17 00:20 98 102 162/66 19 98 --- 06/16 23:20 98 106 164/69 20 98 --- 24 Hr Tmax: 99.2F (37.33c) at 06/17 04:00 Vital Signs are the last 5 in the past 48 hours. GEN: No acute distress, conversant HEENT: Sclera white; No thrush or erythema; Moist membranes LUNG: Clear to auscultation bilaterally; No wheeze, rhonchi, or crackles HEART: RRR; +S1/S2; No murmurs, rubs, or gallops ABD: +BS; Soft; Non-distended; Non-tender EXT: Right TMA; right lateral forefoot with purulent drainage NEURO: Alert and oriented; PERRL; Decreased sensation in feet SKIN: No rashes, ecchymosis, or lesions PSYCH: Appropriate affect Lines, Tubes, and Drains: 06/17/2016 00:01 Peripheral Lines: Hand Right 20 gauge Over the needle catheter MEDICATIONS: Scheduled Meds (3): 06/17/16 lisinopril 10 mg PO Daily 06/17/16 metFORMIN 1,000 mg PO BID 06/17/16 vancomycin + sodium chloride 0.9% INJ 250 mL 1,000 mg IVPB [id number] 250 ml/hr ALLERGIES: Allergies (1) Active Reaction penicillins None documented LABORATORY (Reviewed): Labs (Last four charted values) WBC 5.0 (JUN 17) Hgb L 12.9 (JUN 17) Hct L 37.4 (JUN 17) Plt L 131 (JUN 17) Na L 130 (JUN 17) K 3.9 (JUN 17) CO2 27 (JUN 17) Cl 95 (JUN 17) Cr 0.95 (JUN 17) BUN 9 (JUN 17) Glucose Random H 309 (JUN 17) Ca L 8.1 (JUN 17) PT 14.5 (JUN 17) INR 1.10 (JUN 17) PTT 32.3 (JUN 17) Alk Phos: 128 06/17/16 01:07:19 A/G Ratio: 0.6 Low 06/17/16 01:07:19 ALT: 17 06/17/16 01:07:19 Albumin Lvl: 3.0 Low 06/17/16 01:07:19 Bili Total: 0.4 06/17/16 01:07:19 Total Protein: 7.7 06/17/16 01:07:19 Globulin: 4.7 High 06/17/16 01:07:19 AST: 23 06/17/16 01:07:19 MICROBIOLOGY (Reviewed): Blood: Pending IMAGING (Reviewed): 02/22 MRI: 1. 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 2. Osteomyelitis throughout the distal tibia and fibula with mild erosion of the medial malleolus of the distal tibia. ASSESSMENT and PLAN: 51 yo HM presents with: * Right Diabetic Foot Infection * RLE MSSA Acute on Chronic Osteomyelitis * Hx of Transmetatarsal Amputation * T2DM with Hyperglycemia and Peripheral Neuropathy * Drug Toxicity Monitoring * PCN Allergy - Patient presents with draining right foot infection with concern for underlying abscess. Blood cultures are pending ad wound culture has been taken. Suspect Staph infection again as last time which was MSSA. Will continue vancomycin empirically until cultures are back. Increase the dose and check trough. He had significant osteomyelitis on MRI in February which is likely chronic and will continue to flare. Will check ESR and CRP. Check CTfor evidence of abscess. Check arterial dopplers. Recommend Podiatry consult. Will continue to follow. 06/22/2016 MARTHA Mcgovern Extracted from:Title: Clinical Document Author: Maura Urban MD Date: 02/25/16 [facility] INFECTIOUS DISEASES PROGRESS NOTE MAURA URBAN M.D. DIVYA ZAPIEN M.D. NIKOS SAM M.D. RFC: RLE Osteomyelitis SUBJECTIVE: INTERVAL HISTORY: Resting in bed on abx. ROS: Shoulder pain PMFH: Reviewed OBJECTIVE: PHYSICAL EXAMINATION: Vitals Tmp(F) Pulse BP RR SpO2 FIO2 02/24 08:47 98.6 82 155/88 17 96 --- 02/24 04:27 98.7 84 128/79 16 98 --- 02/23 23:55 98.9 90 131/79 16 97 --- 02/23 19:51 98.8 95 118/78 16 97 --- 02/23 15:57 98.8 109 156/65 15 97 --- 24 Hr Tmax: 98.9F (37.17c) at 02/23 23:55 Vital Signs are the last 5 in the past 48 hours. GEN: No acute distress HEENT: Sclera white; No conjunctival pallor; No thrush or erythema; Moist membranes LUNG: Clear to auscultation bilaterally; No wheeze, rhonchi, or crackles HEART: RRR; +S1/S2; + murmur EXT: Left shoulder TTP and limited ROM, Right medial heel ulceration with sanguinous and purulent drainage NEURO: Alert and oriented; decreased sensation in feet SKIN: right heel ulcer - less drainage Lines, Tubes, and Drains: 02/22/2016 05:47 Peripheral Lines: Antecubital Right 20 gauge Over the needle catheter ANTIMICROBIALS: Vancomycin Cefepime Metronidazole # 4 MEDICATIONS: Scheduled Meds (6): 02/21/16 cefepime + Sodium Chloride 0.9% IV 100 mL 1 gm IVPB [id number] 200 ml/hr 02/22/16 insulin detemir 30 unit SUB-Q BID 02/22/16 metFORMIN 500 mg PO BID 02/21/16 metroNIDAZOLE 500 mg IVPB ABXQ8H 200 ml/hr 02/24/16 sodium chloride (Saline Flush 0.9%) 10 mL IVP Q8H 02/23/16 vancomycin 1.5 gm IVPB [id number] 166.67 ml/hr Allergies (1) Active Reaction penicillins None documented LABORATORY (Reviewed): Labs (Last four charted values) WBC 7.8 (FEB 24) 5.2 (FEB 21) 7.1 (FEB 20) Hgb L 10.8 (FEB 15) L 10.0 (FEB 21) L 9.7 (FEB 11) Hct L 32.0 (FEB 15) L 30.3 (FEB 21) L 29.3 (FEB 11) Plt 218 (FEB 15) 178 (FEB 12) 180 (FEB 20) Na L 133 (FEB 24) L 132 (FEB 12) L 127 (FEB 11) K L 3.4 (FEB 15) 3.6 (FEB 21) 3.8 (FEB 20) CO2 30 (FEB 15) 29 (FEB 21) 27 (FEB 20) Cl 96 (FEB 24) 97 (FEB 21) L 93 (FEB 20) Cr 0.59 (FEB 24) 0.73 (FEB 21) 0.99 (FEB 20) BUN 17 (FEB 24) 10 (FEB 21) 13 (FEB 20) Glucose Random 94 (FEB 24) H 256 (FEB 21) H 373 (FEB 20) Ca L 8.0 (FEB 24) L 8.3 (FEB 21) L 8.4 (FEB 20) PT H 15.6 (FEB 20) INR H 1.21 (FEB 20) PTT H 39.8 (FEB 20) Alk Phos: 92 unit/L (02/22/16 06:05:24) A/G Ratio: 0.3 (02/22/16 06:05:24) ALT: 11 unit/L (02/22/16 06:05:24) Albumin Lvl: 2.0 g/dL (02/22/16 06:05:24) Bili Total: 0.7 mg/dL (02/22/16 06:05:24) Total Protein: 7.8 g/dL (02/22/16 06:05:24) Globulin: 5.8 g/dL (02/22/16 06:05:24) AST: 12 unit/L (02/22/16 06:05:24) Sed Rate: >100 mm/hr (02/22/16 07:01:17) MICROBIOLOGY (Reviewed): 02/20 Blood: NGTD IMAGING (Reviewed): 02/21 CT Shoulder:1. Negative for radiopaque foreign body. In retrospect, the previously visualized radial head foreign body is present in the submandibular submental soft tissue of the lower face. 2. No acute bony abnormality. 3. Glenohumeral joint effusion. 4. Subscapularis muscle swelling with mid substance roughly 2 cm abnormal soft tissue focus or phlegmon, with a questionable single punctate focus of air within this focus. Mild overlying anteriorly adjacent deep fat stranding. However, no regional lymphadenopathy. 02/22 MRI Foot:1. 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 2. Osteomyelitis throughout the distal tibia and fibula with mild erosion of the medial malleolus of the distal tibia. ASSESSMENT/PLAN: 50 yo HM presents with: * Sepsis 2/2 DFI * Right Diabetic Foot Infection * RLE Acute on Chronic Osteomyelitis * Hx of Transmetatarsal Amputation * Shoulder Pain, R/O Septic Arthritis * T2DM with Hyperglycemia and Peripheral Neuropathy * Recent MSSA Bacterermia * Therapeutic Drug Monitoring - Afebrile. - CT shoulder with phlegmon and questionable air - recommend Ortho eval. - MRI with with advanced/erosive/extensive osteomyelitis of foot up trough distal RLE. - Plan for prolonged IV abx for 6 weeks as RLE appears chronic/stable per Podiatry. - Continue IV abx with vancomycin, cefepime, and metronidazole. Vanc trough appropriate. - Follow-up MRSA pcr and wound culture. - Order PICC line. Pending LTACH eval. 02/25/2016 MARTHA Mcgovern Extracted from:Title: Patient Education: Fall Prevention * Author: Linda Lee RN Date: 05/03/15 Patient Education Fall Prevention Education Areas of instruction Alarms. Bed height/stabilization. Call light use. Environment management. Fall prevention protocol. Nonskid footwear use. Notifcation of staff when leaving. Personal article availability. Prevention responsibility family. Prevention responsibility patient. Side rails. Staff responsiveness. Symptoms reporting. Toileting schedule. Person instructed Patient. Barriers to learning None evident. Method of instruction Listening/conversation. Outcome of instructions Verbalizes understanding. 05/03/2015 MARTHA Mcgovern Extracted from:Title: IP [id number] Author: Pranav Corbin MD Date: 05/09/14 Impression and Plan Diagnosis: Diabetes (ICD9 250.00, Working, Medical), Diabetic foot ulcer with osteomyelitis (ICD9 250.80, Working, Medical), Essential hypertension, benign (ICD9 401.1, Working, Medical). 1. Right 4th Toe OM: Today schedule for surgery for the same. He is on antibiotics and wound management. His culture is positive for E Coli. He has amputation. As per discussion with Dr Zapien, he can be discharged -99 hours of treatment. 2. Diabetes II: On medication and sliding scale. 3. Hypertension: On medication and stable at this time. Discharge planning as per ID recommendation. 05/09/[address] [facility] Plan of Care No Data Provided for This Section Social History Social History Date Source Social History TypeResponse Alcohol Past, Frequency: 1-2 times per week. Smoking Status Former smoker; Exposure to Tobacco Smoke None; Cigarette Smoking Last 365 Days No; Reg Smoking Cessation Counseling No 01/21/[address] [facility] Social History ElementQualifiersDate Reported Do you smoke? . Answer: No Sep 02, 2015 Tobacco Use: . Are you a:: never smoker Sep 02, 2015 Marital Status: . Sep 02, 2015 Do you exercise? . Answer: No Sep 02, 2015 Do you drink alcohol? . Status: No Sep 02, 2015 Occupation: . Unemployed Sep 02, 2015 09/02/2015 [facility] Social History ElementQualifiersDate Reported Do you take aspirin or a blood thinner drug? . YES Olivia Kelley 06/04/2015 2:15:18 PM > June 04, 2015 Tobacco Use: . Are you a: never smoker June 04, 2015 Marital Status: . Olivia Kelley 06/04/2015 2:18:31 PM > June 04, 2015 Caffeine intake? . Status: Yes, What type: Coffee, Tea, Soft Drinks June 04, 2015 Do you exercise? . Answer: No June 04, 2015 Do you drink alcohol? . YES Olivia Kelley 06/04/2015 2:15:18 PM > June 04, 2015 06/04/2015 Ayla Fletcher Family History No Data Provided for This Section Advance Directives No Data Provided for This Section Functional Status No Data Provided for This Section
--- OUTSIDE RECORDS SUMMARY | 2019-05-19 10:59 | XMS REPORT | CCD ---
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 Role Phone Maral Vasquez CP Allergies, Adverse Reactions, Alerts Substance Reaction Status penicillins Active Medications Medication Instructions Start Date End Date Status metFORmin 500 mg 500 mg, 1 tab, PO, BID, 30 tab, 10/26/2011 Ordered oral tablet Substitution Allowed clindamycin 300 mg 300 mg, 1 cap, PO, QID, 40 cap, 10/26/2011 Ordered oral capsule Substitution Allowed clindamycin 600 mg, Route: IM, ONCE, Priority: 10/26/2011 10/26/2011 Completed STAT, Start date: 10/26/11 11:20:00, Stop date: 10/26/11 11:20:00 clindamycin 600 mg, Route: IVPB, ONCE, 10/26/2011 10/26/2011 Discontinued Priority: STAT, Start date: 10/26/11 11:19:00, Stop date: 10/26/11 11:19:00 Vital Signs Most recent to oldest [Reference Range]: 1 2 Height 165.10 cm (10/26/2011 11:09:00) Temperature Oral [96.4-99.1 DegF] 98.6 DegF (10/26/2011 13:30:00) 98.1 DegF (10/26/2011 11:09:00) Systolic Blood Pressure [90-140 mmHg] 138 mmHg (10/26/2011 13:30:00) 168 mmHg *HI* (10/26/2011 11:09:00) Diastolic Blood Pressure [60-90 mmHg] 78 mmHg (10/26/2011 13:30:00) 49 mmHg *LOW* (10/26/2011 11:09:00) Respiratory Rate [14-20 BRMIN] 18 BRMIN (10/26/2011 13:30:00) 16 BRMIN (10/26/2011 11:09:00) Peripheral Pulse Rate [60-100 bpm] 74 bpm (10/26/2011 13:30:00) 86 bpm (10/26/2011 11:09:00) Weight 116.364 kg (10/26/2011 11:09:00) Results BEDSIDE GLUCOSE TESTING Most recent to oldest [Reference Range]: 1 Gluc POC Lifscn [65-110 mg/dL] 285 mg/dL 1 *HI* (10/26/2011 11:25:00) 1Interpretive Data: Upper Reportable Limit: 200 mg/dL. CHEMISTRY Most recent to oldest [Reference Range]: 1 Sodium Lvl [135-145 mEq/L] 136 mEq/L (10/26/2011 12:23:00) Potassium Lvl [3.5-5.1 mEq/L] 3.9 mEq/L (10/26/2011 12:23:00) Chloride Lvl [95-109 mEq/L] 101 mEq/L (10/26/2011 12:23:00) CO2 [24-32 mEq/L] 27 mEq/L (10/26/2011 12:23:00) AGAP [10.0-20.0 mEq/L] 11.9 mEq/L (10/26/2011 12:23:00) Creatinine Lvl [0.5-1.4 mg/dL] 0.7 mg/dL (10/26/2011 12:23:00) BUN [7-22 mg/dL] 13 mg/dL (10/26/2011 12:23:00) Glucose Lvl 261 mg/dL 2 *NA* (10/26/2011 12:23:00) Calcium Lvl [8.5-10.5 mg/dL] 8.4 mg/dL *LOW* (10/26/2011 12:23:00) 2Interpretive Data: Reference Ranges : 0 - 7 days : 41 - 90 mg/dL7 days - 150 yrs : 70 - 99 mg/dL (fasting), based on the clinical recommendations of the [place] [employer]. HEMATOLOGY Most recent to oldest [Reference Range]: 1 WBC [3.7-10.4 K/CMM] 4.2 K/CMM (10/26/2011 12:23:00) RBC [4.70-6.10 M/CMM] 4.21 M/CMM *LOW* (10/26/2011:23:00) Hgb [14.0-18.0 g/dL] 14.2 g/dL (10/26/2011:23:00) Hct [42.0-54.0 %] 39.9 % *LOW* (10/26/2011:23:00) MCV [80.0-94.0 fL] 94.8 fL *HI* (10/26/2011:23:00) MCH [27.0-31.0 pg] 33.8 pg *HI* (10/26/2011::00) MCHC [32.0-36.0 g/dL] 35.6 g/dL (10/26/2011:23:00) RDW [11.5-14.5 %] 13.2 % (10/26/2011:23:00) Platelet [133-450 K/CMM] 101 K/CMM *LOW* (10/26/2011:23:00) MPV [7.4-10.4 fL] 11.6 fL *HI* (10/26/2011:23:00) Segs [45.0-75.0 %] 56.6 % (10/26/2011:23:00) Lymphocytes [20.0-40.0 %] 29.9 % (10/26/2011 12:23:00) Monocytes [2.0-12.0 %] 9.3 % (10/26/2011:23:00) Eosinophils [0.0-4.0 %] 3.6 % (10/26/2011 12:23:00) Basophils [0.0-1.0 %] 0.6 % (10/26/2011 12:23:00) Segs-Bands # [1.5-8.1 K/CMM] 2.4 K/CMM (10/26/2011:23:00) Lymphocytes # [1.0-5.5 K/CMM] 1.2 K/CMM (10/26/2011 12:23:00) Monocytes # [0.0-0.8 K/CMM] 0.4 K/CMM (10/26/2011 12:23:00) Eosinophils # [0.0-0.5 K/CMM] 0.2 K/CMM (10/26/2011 12:23:00) Basophils # [0.0-0.2 K/CMM] 0.0 K/CMM (10/26/2011 12:23:00) RBC Morph Normal (10/26/2011 12:23:00) Plt Morph Normal (10/26/2011 12:23:00) Microbiology Reports PROCEDURE:Culture: Wound/Abscess w/Gram Stain STATUS: In Progress BODY SITE: Foot L COLLECTED DATE/TIME: 10/26/2011 11:20:00 SOURCE: Abscess FREE TEXT SOURCE: PRELIMINARY REPORTS Preliminary Report Many Gram Positive Cocci Subculture In Progress STAIN REPORTS Stain Report No WBC's Seen Many Gram Positive Cocci Many Gram Positive Rods
--- OUTSIDE RECORDS SUMMARY | 2019-05-19 10:59 | XMS REPORT | CCD ---
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 Medications Medication Instructions Start Date End Date Status NovoLog FlexPen 3 unit, 0.03 mL, Route: SUB-Q, Drug 02/07/2013 02/07/2013 Discontinued form: SOLN, Bedtime, Dosing Weight 109.091, kg, PRN Blood Glucose Results, Start date: 02/07/13 12:31:00, Duration: 30 day, Stop date: 03/09/13 12:30:00 NovoLog FlexPen 2 unit, 0.02 mL, Route: SUB-Q, Drug 02/07/2013 02/07/2013 Discontinued form: SOLN, Bedtime, Dosing Weight 109.091, kg, PRN Blood Glucose Results, Start date: 02/07/13 12:30:00, Duration: 30 day, Stop date: 03/09/13 12:29:00 enoxaparin 40 mg, 0.4 mL, Route: SUB-Q, Drug 02/01/2013 02/07/2013 Discontinued form: INJ, [id number], Dosing Weight 109.091, kg, Start date: 02/01/13 16:00:00, Duration: 30 day, Stop date: 03/02/13 16:00:00 NovoLog FlexPen 1 unit, 0.01 mL, Route: SUB-Q, Drug 02/07/2013 02/07/2013 Discontinued form: SOLN, Bedtime, Dosing Weight 109.091, kg, PRN Blood Glucose Results, Start date: 02/07/13 12:30:00, Duration: 30 day, Stop date: 03/09/13 12:29:00 ibuprofen 200 mg 400 mg, 2 tab, PO, Q4H, PRN, as 01/31/2013 Ordered oral tablet needed for pain, Substitution Allowed NovoLog FlexPen 9 unit, 0.09 mL, Route: SUB-Q, Drug 02/07/2013 02/07/2013 Discontinued form: SOLN, TID-Before Meals, Dosing Weight 109.091, kg, PRN Blood Glucose Results, Start date: 02/07/13 12:30:00, Duration: 30 day, Stop date: 03/09/13 12:29:00 NovoLog FlexPen 6 unit, 0.06 mL, Route: SUB-Q, Drug 02/07/2013 02/07/2013 Discontinued form: SOLN, TID-Before Meals, Dosing Weight 109.091, kg, PRN Blood Glucose Results, Start date: 02/07/13 12:29:00, Duration: 30 day, Stop date: 03/09/13 12:28:00 NovoLog FlexPen 3 unit, 0.03 mL, Route: SUB-Q, Drug 02/07/2013 02/07/2013 Discontinued form: SOLN, TID-Before Meals, Dosing Weight 109.091, kg, PRN Blood Glucose Results, Start date: 02/07/13 12:29:00, Duration: 30 day, Stop date: 03/09/13 12:28:00 NovoLog FlexPen 15 unit, 0.15 mL, Route: SUB-Q, 02/07/2013 02/07/2013 Discontinued Drug form: SOLN, TID-Before Meals, Dosing Weight 109.091, kg, PRN Blood Glucose Results, Start date: 02/07/13 12:29:00, Duration: 30 day, Stop date: 03/09/13 12:28:00 NovoLog FlexPen 12 unit, 0.12 mL, Route: SUB-Q, 02/07/2013 02/07/2013 Discontinued Drug form: SOLN, TID-Before Meals, Dosing Weight 109.091, kg, PRN Blood Glucose Results, Start date: 02/07/13 12:29:00, Duration: 30 day, Stop date: 03/09/13 12:28:00 lisinopril 20 mg 20 mg, 1 tab, PO, Daily, 30 tab, 02/07/2013 Ordered oral tablet Substitution Allowed, TAB Lactated Ringers 1,000 mL, Rate: 25 ml/hr, Infuse 02/05/2013 02/05/2013 Discontinued Injection IV 1,000 over: 40 hr, Route: IV, kg, Total mL Volume: 1,000, Start date: 02/05/13 11:21:00, Duration: 2 day, Stop date: 02/07/13 11:20:00 glucagon 1 mg, Route: IM, Drug form: 02/07/2013 02/07/2013 Discontinued PDR/INJ, PRN, Dosing Weight 109.091, kg, PRN Blood Glucose Results, Start date: 02/07/13 12:28:00, Duration: 30 day, Stop date: 03/09/13 12:27:00 Lovenox 40 mg, 0.4 mL, Route: SUB-Q, Drug 02/07/2013 02/07/2013 Discontinued form: INJ, [id number], Dosing Weight 109.091, kg, Start date: 02/07/13 16:00:00, Duration: 30 day, Stop date: 03/08/13 16:00:00 Benadryl 25 mg, 1 tab, Route: PO, Drug form: 02/07/2013 02/07/2013 Discontinued TAB, TID, Dosing Weight 109.091, kg, PRN Itching, Start date: 02/07/13 12:27:00, Duration: 30 day, Stop date: 03/09/13 12:26:00 Dextrose 50% Syringe 25 gm, 50 mL, Route: IVP, Drug 02/07/2013 02/07/2013 Discontinued Form: INJ, Dosing Weight 109.091, kg, PRN, PRN Blood Glucose Results, Start date: 02/07/13 12:27:00, Duration: 30 day, Stop date: 03/09/13 12:26:00 Benadryl 25 mg, 1 tab, Route: PO, Drug form: 02/02/2013 02/07/2013 Discontinued TAB, TID, Dosing Weight 109.091, kg, PRN Itching, Start date: 02/02/13 16:09:00, Duration: 30 day, Stop date: 03/04/13 16:08:00 Dextrose 50% Syringe 12.5 gm, 25 mL, Route: IVP, Drug 02/07/2013 02/07/2013 Discontinued Form: INJ, Dosing Weight 109.091, kg, PRN, PRN Blood Glucose Results, Start date: 02/07/13 12:27:00, Duration: 30 day, Stop date: 03/09/13 12:26:00 insulin aspart 1 unit, 0.01 mL, Route: SUB-Q, Drug 01/31/2013 02/01/2013 Discontinued form: SOLN, TID-Before Meals, Dosing Weight 109.091, kg, PRN Blood Glucose Results, Start date: 01/31/13 22:55:00, Duration: 30 day, Stop date: 03/02/13 22:54:00 insulin aspart 2 unit, 0.02 mL, Route: SUB-Q, Drug 01/31/2013 02/01/2013 Discontinued form: SOLN, TID-Before Meals, Dosing Weight 109.091, kg, PRN Blood Glucose Results, Start date: 01/31/13 22:55:00, Duration: 30 day, Stop date: 03/02/13 22:54:00 insulin aspart 4 unit, 0.04 mL, Route: SUB-Q, Drug 01/31/2013 02/01/2013 Discontinued form: SOLN, TID-Before Meals, Dosing Weight 109.091, kg, PRN Blood Glucose Results, Start date: 01/31/13 22:55:00, Duration: 30 day, Stop date: 03/02/13 22:54:00 insulin aspart 3 unit, 0.03 mL, Route: SUB-Q, Drug 01/31/2013 02/01/2013 Discontinued form: SOLN, TID-Before Meals, Dosing Weight 109.091, kg, PRN Blood Glucose Results, Start date: 01/31/13 22:55:00, Duration: 30 day, Stop date: 03/02/13 22:54:00 insulin aspart 5 unit, 0.05 mL, Route: SUB-Q, Drug 01/31/2013 02/01/2013 Discontinued form: SOLN, TID-Before Meals, Dosing Weight 109.091, kg, PRN Blood Glucose Results, Start date: 01/31/13 22:55:00, Duration: 30 day, Stop date: 03/02/13 22:54:00 insulin glargine 10 unit, Route: SUB-Q, Daily, 02/01/2013 01/31/2013 Discontinued Dosing Weight 109.091, kg, Start date: 02/01/13 9:00:00, Duration: 30 day, Stop date: 03/02/13 9:00:00 Dextrose 50% Syringe 12.5 gm, 25 mL, Route: IVP, Drug 01/31/2013 02/01/2013 Discontinued Form: INJ, Dosing Weight 109.091, kg, PRN, PRN Blood Glucose Results, Start date: 01/31/13 22:55:00, Duration: 30 day, Stop date: 03/02/13 22:54:00 glucagon 1 mg, Route: IM, Drug form: 01/31/2013 02/07/2013 Discontinued PDR/INJ, PRN, Dosing Weight 109.091, kg, PRN Blood Glucose Results, Start date: 01/31/13 22:55:00, Duration: 30 day, Stop date: 03/02/13 22:54:00 Dextrose 50% Syringe 25 gm, 50 mL, Route: IVP, Drug 01/31/2013 02/01/2013 Discontinued Form: INJ, Dosing Weight 109.091, kg, PRN, PRN Blood Glucose Results, Start date: 01/31/13 22:55:00, Duration: 30 day, Stop date: 03/02/13 22:54:00 cefepime + Sodium 1 gm, Route: IVPB, [id number], Dosing 02/01/2013 02/02/2013 Discontinued Chloride 0.9% IV 100 Weight 109.091, kg, (CrCl 30 - 49 mL ml/min), Start date: 02/01/13 16:00:00, Duration: 30 day, Stop date: 03/03/13 4:00:00 acetaminophen-hydroc 1 tab, Route: PO, Drug Form: TAB, 02/07/2013 02/07/2013 Discontinued odone 325 mg-5 mg Dosing Weight 109.091, kg, Q4H, PRN oral tablet Pain Score 1-3, Start date: 02/07/13 11:43:00, Duration: 30 day, Stop date: 03/09/13 11:42:00 acetaminophen-hydroc 1 tab, Route: PO, Drug Form: TAB, 02/07/2013 02/07/2013 Discontinued odone 325 mg-10 mg Dosing Weight 109.091, kg, Q4H, PRN oral tablet Pain Score 4-6, Start date: 02/07/13 11:43:00, Duration: 30 day, Stop date: 03/09/13 11:42:00 Tylenol 650 mg, 20.3 mL, Route: PO, Drug 02/07/2013 02/07/2013 Discontinued form: LIQ, Q4H, Dosing Weight 109.091, kg, PRN Pain 1-3/Temp > 100.4 F, Start date: 02/07/13 11:43:00, Duration: 30 day, Stop date: 03/09/13 11:42:00 vancomycin 1.5 gm, 250 mL, Route: IVPB, Drug 02/07/2013 02/07/2013 Discontinued form: INJ, [id number], Dosing Weight 109.091, kg, Start date: 02/07/13 13:00:00, Duration: 30 day, Stop date: 03/09/13 1:00:00 cefepime + Sodium 2 gm, Route: IVPB, [id number], Dosing 02/07/2013 02/07/2013 Discontinued Chloride 0.9% IV 100 Weight 109.091, kg, (CrCl 30 - 49 mL ml/min, [employer] infection or neutropenic fever), Start date: 02/07/13 15:00:00, Duration: 30 day, Stop date: 03/09/13 3:00:00 insulin aspart 6 unit, 0.06 mL, Route: SUB-Q, Drug 02/01/2013 02/07/2013 Discontinued form: SOLN, TID-Before Meals, Dosing Weight 109.091, kg, PRN Blood Glucose Results, Start date: 02/01/13 15:19:00, Duration: 30 day, Stop date: 03/03/13 15:18:00 insulin aspart 3 unit, 0.03 mL, Route: SUB-Q, Drug 02/01/2013 02/07/2013 Discontinued form: SOLN, TID-Before Meals, Dosing Weight 109.091, kg, PRN Blood Glucose Results, Start date: 02/01/13 15:19:00, Duration: 30 day, Stop date: 03/03/13 15:18:00 insulin aspart 15 unit, 0.15 mL, Route: SUB-Q, 02/01/2013 02/07/2013 Discontinued Drug form: SOLN, TID-Before Meals, Dosing Weight 109.091, kg, PRN Blood Glucose Results, Start date: 02/01/13 15:19:00, Duration: 30 day, Stop date: 03/03/13 15:18:00 insulin aspart 12 unit, 0.12 mL, Route: SUB-Q, 02/01/2013 02/07/2013 Discontinued Drug form: SOLN, TID-Before Meals, Dosing Weight 109.091, kg, PRN Blood Glucose Results, Start date: 02/01/13 15:19:00, Duration: 30 day, Stop date: 03/03/13 15:18:00 insulin aspart 9 unit, 0.09 mL, Route: SUB-Q, Drug 02/01/2013 02/07/2013 Discontinued form: SOLN, TID-Before Meals, Dosing Weight 109.091, kg, PRN Blood Glucose Results, Start date: 02/01/13 15:19:00, Duration: 30 day, Stop date: 03/03/13 15:18:00 insulin aspart 1 unit, 0.01 mL, Route: SUB-Q, Drug 02/01/2013 02/07/2013 Discontinued form: SOLN, Bedtime, Dosing Weight 109.091, kg, PRN Blood Glucose Results, Start date: 02/01/13 15:19:00, Duration: 30 day, Stop date: 03/03/13 15:18:00 insulin aspart 3 unit, 0.03 mL, Route: SUB-Q, Drug 02/01/2013 02/07/2013 Discontinued form: SOLN, Bedtime, Dosing Weight 109.091, kg, PRN Blood Glucose Results, Start date: 02/01/13 15:19:00, Duration: 30 day, Stop date: 03/03/13 15:18:00 insulin aspart 2 unit, 0.02 mL, Route: SUB-Q, Drug 02/01/2013 02/07/2013 Discontinued form: SOLN, Bedtime, Dosing Weight 109.091, kg, PRN Blood Glucose Results, Start date: 02/01/13 15:19:00, Duration: 30 day, Stop date: 03/03/13 15:18:00 glucagon 1 mg, Route: IM, Drug form: 02/01/2013 02/07/2013 Discontinued PDR/INJ, PRN, Dosing Weight 109.091, kg, PRN Blood Glucose Results, Start date: 02/01/13 15:19:00, Duration: 30 day, Stop date: 03/03/13 15:18:00 insulin aspart 4 unit, 0.04 mL, Route: SUB-Q, Drug 02/01/2013 02/07/2013 Discontinued form: SOLN, Bedtime, Dosing Weight 109.091, kg, PRN Blood Glucose Results, Start date: 02/01/13 15:19:00, Duration: 30 day, Stop date: 03/03/13 15:18:00 Dextrose 50% Syringe 25 gm, 50 mL, Route: IVP, Drug 02/01/2013 02/07/2013 Discontinued Form: INJ, Dosing Weight 109.091, kg, PRN, PRN Blood Glucose Results, Start date: 02/01/13 15:19:00, Duration: 30 day, Stop date: 03/03/13 15:18:00 Dextrose 50% Syringe 12.5 gm, 25 mL, Route: IVP, Drug 02/01/2013 02/07/2013 Discontinued Form: INJ, Dosing Weight 109.091, kg, PRN, PRN Blood Glucose Results, Start date: 02/01/13 15:19:00, Duration: 30 day, Stop date: 03/03/13 15:18:00 magnesium sulfate 2 gm, 50 mL, Route: IVPB, Drug 02/01/2013 02/01/2013 Completed form: INJ, ONCE, Dosing Weight 109.091, kg, Total dose=2 gm, Start date: 02/01/13 15:18:00, Duration: 1 doses or times, Stop date: 02/01/13 15:18:00 Lantus 10 unit, Route: SUB-Q, Drug form: 02/01/2013 02/01/2013 Discontinued SOLN, Daily, Dosing Weight 109.091, kg, Priority: NOW, Start date: 02/01/13 15:21:00, Duration: 30 day, Stop date: 03/03/13 9:00:00 clindamycin + Sodium 900 mg, 6 mL, Route: IVPB, [id number], 01/31/2013 01/31/2013 Discontinued Chloride 0.9% IV 100 Dosing Weight 109.091, kg, Start mL date: 01/31/13 23:00:00, Duration: 30 day, Stop date: 03/02/13 15:00:00 Prinivil 20 mg, 1 tab, Route: PO, Drug form: 02/08/2013 02/07/2013 Canceled TAB, Daily, Dosing Weight 109.091, kg, Priority: Routine, Start date: 02/08/13 9:00:00, Duration: 30 day, Stop date: 03/09/13 9:00:00 Sodium Chloride 0.9% 1,000 mL, Rate: 1,000 ml/hr, Infuse 01/31/2013 01/31/2013 Completed (Bolus) IV 1,000 mL over: 1 hr, Route: IV, kg, Total Volume: 1,000, Priority: STAT, Start date: 01/31/13 21:08:00, Duration: 1 doses or times, Stop date: 01/31/13 22:07:00, Bolus Dose Bolus Dose lisinopril 20 mg, 1 tab, Route: PO, Drug form: 02/01/2013 02/07/2013 Discontinued TAB, Daily, Dosing Weight 109.091, kg, Priority: NOW, Start date: 02/01/13 15:31:00, Stop date: 03/03/13 9:00:00 cefepime + Sodium 2 gm, Route: IVPB, [id number], Dosing 02/02/2013 02/07/2013 Discontinued Chloride 0.9% IV 100 Weight 109.091, kg, (CrCl 30 - 49 mL ml/min, [employer] infection or neutropenic fever), Start date: 02/02/13 15:00:00, Duration: 30 day, Stop date: 03/04/13 3:00:00 alteplase 2 mg, 2 mL, Route: IV, Drug form: 02/07/2013 02/07/2013 Completed INJ, ONCE, Start date: 02/07/13 10:15:00, Stop date: 02/07/13 10:15:00 Insulin regular 10 unit, 0.1 mL, Route: IV, Drug 01/31/2013 01/31/2013 Completed form: INJ, ONCE, Dosing Weight 109.091, kg, Start date: 01/31/13 21:07:00, Stop date: 01/31/13 21:07:00 acetaminophen-hydroc 1 tab, PO, Q4H, PRN, 30 tab, Pain 02/07/2013 Ordered odone 325 mg-5 mg Score 1-3, Substitution Allowed, oral tablet Maintenance, TAB ondansetron 4 mg, 2 mL, Route: IVP, Drug form: 01/31/2013 02/07/2013 Discontinued INJ, ONCE, Dosing Weight 109.091, kg, PRN Nausea & Vomiting, Start date: 01/31/13 22:54:00 acetaminophen-hydroc 1 tab, Route: PO, Drug Form: TAB, 01/31/2013 02/07/2013 Discontinued odone 325 mg-5 mg Dosing Weight 109.091, kg, Q4H, PRN oral tablet Pain Score 1-3, Start date: 01/31/13 22:54:00, Duration: 30 day, Stop date: 03/02/13 22:53:00 acetaminophen-hydroc 1 tab, Route: PO, Drug Form: TAB, 01/31/2013 02/07/2013 Discontinued odone 325 mg-10 mg Dosing Weight 109.091, kg, Q4H, PRN oral tablet Pain Score 4-6, Start date: 01/31/13 22:54:00, Duration: 30 day, Stop date: 03/02/13 22:53:00 morphine Sulfate 2 mg, 1 mL, Route: IVP, Drug form: 01/31/2013 02/07/2013 Discontinued INJ, Q3H, Dosing Weight 109.091, kg, PRN Pain Score 7-10, Start date: 01/31/13 22:54:00, Duration: 30 day, Stop date: 03/02/13 22:53:00 acetaminophen 650 mg, 20.3 mL, Route: PO, Drug 01/31/2013 02/07/2013 Discontinued form: LIQ, Q4H, Dosing Weight 109.091, kg, PRN Pain 1-3/Temp > 100.4 F, Start date: 01/31/13 22:54:00, Duration: 30 day, Stop date: 03/02/13 22:53:00 Cipro 400 mg, 200 mL, Route: IVPB, Drug 01/31/2013 02/01/2013 Discontinued form: INJ, [id number], Dosing Weight 109.091, kg, Start date: 01/31/13 23:00:00, Duration: 30 day, Stop date: 03/02/13 11:00:00 vancomycin 1.5 gm, 250 mL, Route: IVPB, Drug 02/01/2013 02/07/2013 Discontinued form: INJ, [id number], Dosing Weight 109.091, kg, Start date: 02/01/13 0:00:00, Stop date: 03/02/13 12:00:00 tetanus toxoid 0.5 ml, Route: IM, Drug Form: INJ, 01/31/2013 02/01/2013 Completed Dosing Weight 109.091, kg, ONCE, Start date: 01/31/13 22:54:00, Stop date: 01/31/13 22:54:00 metFORmin 1000 mg 1,000 mg, 1 tab, PO, BID, 60 tab, 02/07/2013 Ordered oral tablet Substitution Allowed Levemir FlexPen 10 unit, 0.1 mL, Route: SUB-Q, Drug 02/01/2013 02/01/2013 Discontinued form: INJ, Daily, Start date: 02/01/13 9:00:00, Duration: 30 day, Stop date: 03/02/13 9:00:00 ciprofloxacin 400 mg, 200 mL, Route: IV, Drug 01/31/2013 01/31/2013 Completed form: INJ, ONCE, Dosing Weight 109.091, kg, Start date: 01/31/13 21:03:00, Stop date: 01/31/13 21:03:00 Levemir FlexPen 10 unit, 0.1 mL, Route: SUB-Q, Drug 02/02/2013 02/02/2013 Completed form: INJ, ONCE, Dosing Weight 109.091, kg, Start date: 02/02/13 12:29:00, Stop date: 02/02/13 12:29:00 clindamycin + Sodium 900 mg, 6 mL, Route: IVPB, Drug 01/31/2013 02/02/2013 Discontinued Chloride 0.9% IV 100 form: INJ, [id number], Dosing Weight mL 109.091, kg, Start date: 01/31/13 22:00:00, Duration: 30 day, Stop date: 03/02/13 14:00:00 alteplase 2 mg, 2 mL, Route: IV, Drug form: 02/07/2013 02/07/2013 Discontinued INJ, ONCALL, Start date: 02/07/13 11:00:00, Duration: 1 day, Stop date: 02/08/13 10:59:00 alteplase 2 mg, 2 mL, Route: IV, Drug form: 02/07/2013 02/07/2013 Discontinued INJ, ONCALL, Start date: 02/07/13 13:00:00, Duration: 1 day, Stop date: 02/08/13 12:59:00 alteplase 2 mg, 2 mL, Route: IV, Drug form: 02/07/2013 02/07/2013 Deleted INJ, ONCE, Start date: 02/07/13 10:12:00, Stop date: 02/07/13 10:12:00 Levemir FlexPen 30 unit, 0.3 mL, Route: SUB-Q, Drug 02/08/2013 02/07/2013 Canceled form: INJ, Daily, Start date: 02/08/13 9:00:00, Duration: 30 day, Stop date: 03/09/13 9:00:00 NovoLog FlexPen 4 unit, 0.04 mL, Route: SUB-Q, Drug 02/07/2013 02/07/2013 Discontinued form: SOLN, Bedtime, Dosing Weight 109.091, kg, PRN Blood Glucose Results, Start date: 02/07/13 12:31:00, Duration: 30 day, Stop date: 03/09/13 12:30:00 Levemir FlexPen 10 unit, 0.1 mL, Route: SUB-Q, Drug 02/01/2013 02/01/2013 Completed form: INJ, ONCE, Dosing Weight 109.091, kg, Start date: 02/01/13 15:24:00, Stop date: 02/01/13 15:24:00 Levemir FlexPen 30 unit, 0.3 mL, Route: SUB-Q, Drug 02/02/2013 02/07/2013 Discontinued form: INJ, Daily, Start date: 02/02/13 9:00:00, Stop date: 03/03/13 9:00:00 Immunizations Vaccine Date Status Hx influenza vaccine-unspecified1 09/22/2012 Auth (Verified) tetanus toxoid 02/01/2013 Auth (Verified) 1received at [facility] Vital Signs Most recent to oldest [Reference Range]: 1 2 3 Height 165.1 cm (02/01/2013 00:14:00) 165.1 cm (01/31/2013 17:58:00) Temperature Oral [96.4-99.1 DegF] 98.5 DegF (02/07/2013 16:08:00) 98.5 DegF (02/07/2013 16:07:00) 98.5 DegF (02/07/2013 15:36:00) Systolic Blood Pressure [90-140 mmHg] 150 mmHg *HI* (02/07/2013 16:08:00) 150 mmHg *HI* (02/07/2013 16:07:00) 150 mmHg *HI* (02/07/2013 15:36:00) Diastolic Blood Pressure [60-90 mmHg] 82 mmHg (02/07/2013 16:08:00) 82 mmHg (02/07/2013 16:07:00) 82 mmHg (02/07/2013 15:36:00) Respiratory Rate [14-20 BRMIN] 20 BRMIN (02/07/2013 16:08:00) 20 BRMIN (02/07/2013 16:07:00) 20 BRMIN (02/07/2013 15:36:00) Peripheral Pulse Rate [60-100 bpm] 72 bpm (02/07/2013 16:08:00) 72 bpm (02/07/2013 15:36:00) 74 bpm (02/07/2013 11:41:00) Weight 109.091 kg (02/01/2013 00:14:00) 109.091 kg (01/31/2013 17:58:00) Results BEDSIDE GLUCOSE TESTING Most recent to [facility] [Reference Range]: 1 2 3 Gluc POC [place] [70-99 mg/dL] 302 mg/dL 1 *HI* (02/07/2013 15:23:00) 185 mg/dL 2 *HI* (02/07/2013 11:17:00) 201 mg/dL 3 *HI* (02/07/2013 05:42:00) Comment1 Notify RN/MD *NA* (02/07/2013 15:23:00) Notify RN/MD *NA* (02/07/2013 11:17:00) Notify RN/MD *NA* (02/07/2013 05:42:00) Comment2 Notify RN/MD *NA* (02/02/2013 11:32:00) 1Interpretive Data: Upper Reportable Limit: 200 mg/dL. 2Interpretive Data: Upper Reportable Limit: 200 mg/dL. 3Interpretive Data: Upper Reportable Limit: 200 mg/dL. URINALYSIS Most recent to oldest [Reference Range]: 1 2 3 UA Turbidity [Clear] Clear (01/31/2013 21:20:00) UA Color [Yellow] Yellow (01/31/2013 21:20:00) UA pH [5.0-8.0] 6.0 (01/31/2013 21:20:00) UA Spec Grav [<=1.030] 1.027 (01/31/2013 21:20:00) UA Glucose [Negative mg/dL] 500 mg/dL *ABN* (01/31/2013 21:20:00) UA Blood [Negative] Large *ABN* (01/31/2013 21:20:00) UA Ketones [Negative mg/dL] Negative mg/dL *NA* (01/31/2013 21:20:00) UA Protein [Negative mg/dL] 100 mg/dL *ABN* (01/31/2013 21:20:00) UA Urobilinogen [0.1-1.0 mg/dL] 4.0 mg/dL *HI* (01/31/2013 21:20:00) UA Bili [Negative] Negative *NA* (01/31/2013 21:20:00) UA Leuk Est [Negative] Trace *ABN* (01/31/2013 21:20:00) UA Nitrite [Negative] Negative (01/31/2013 21:20:00) UA WBC [0-5 /HPF] 46 /HPF *HI* (01/31/2013 21:20:00) UA RBC [0-2 /HPF] 138 /HPF *HI* (01/31/2013 21:20:00) UA Bacteria [None Seen /HPF] Few /HPF *NA* (01/31/2013 21:20:00) UA Sq Epi [Few /LPF] Few /LPF *NA* (01/31/2013 21:20:00) CHEMISTRY Most recent to oldest [Reference Range]: 1 2 3 Sodium Lvl [135-145 mEq/L] 138 mEq/L (02/06/2013 04:36:00) 135 mEq/L (02/02/2013 06:52:00) 130 mEq/L *LOW* (01/31/2013 20:55:00) Potassium Lvl [3.5-5.1 mEq/L] 3.8 mEq/L (02/06/2013 04:36:00) 4.0 mEq/L (02/02/2013 06:52:00) 3.9 mEq/L (01/31/2013 20:55:00) Chloride Lvl [95-109 mEq/L] 101 mEq/L (02/06/2013 04:36:00) 100 mEq/L (02/02/2013 06:52:00) 93 mEq/L *LOW* (01/31/2013 20:55:00) CO2 [24-32 mEq/L] 29 mEq/L (02/06/2013 04:36:00) 29 mEq/L (02/02/2013 06:52:00) 27 mEq/L (01/31/2013 20:55:00) AGAP [10.0-20.0 mEq/L] 11.8 mEq/L (02/06/2013 04:36:00) 10.0 mEq/L (02/02/2013 06:52:00) 13.9 mEq/L (01/31/2013 20:55:00) Creatinine Lvl [0.5-1.4 mg/dL] 1.0 mg/dL (02/06/2013 04:36:00) 0.9 mg/dL (02/02/2013 06:52:00) 1.1 mg/dL (01/31/2013 20:55:00) eGFR 89 mL/min/1.73m2 4 *NA* (02/06/2013 04:36:00) 101 mL/min/1.73m2 5 *NA* (02/02/2013 06:52:00) 79 mL/min/1.73m2 6 *NA* (01/31/2013 20:55:00) BUN [7-22 mg/dL] 15 mg/dL (02/06/2013 04:36:00) 15 mg/dL (02/02/2013 06:52:00) 16 mg/dL (01/31/2013 20:55:00) B/C Ratio [6-25] 15 (01/31/2013 20:55:00) Glucose Lvl [70-99 mg/dL] 146 mg/dL 7 *HI* (02/06/2013 04:36:00) 265 mg/dL 8 *HI* (02/02/2013 06:52:00) 366 mg/dL 9 *HI* (01/31/2013 20:55:00) Total Protein [6.4-8.4 g/dL] 8.4 g/dL (01/31/2013 20:55:00) Albumin Lvl [3.5-5.0 g/dL] 2.9 g/dL *LOW* (01/31/2013 20:55:00) Globulin [2.0-4.0 g/dL] 5.5 g/dL *HI* (01/31/2013 20:55:00) A/G Ratio [0.7-1.6] 0.5 *LOW* (01/31/2013 20:55:00) Calcium Lvl [8.5-10.5 mg/dL] 8.5 mg/dL (02/06/2013 04:36:00) 8.0 mg/dL *LOW* (02/02/2013 06:52:00) 8.8 mg/dL (01/31/2013 20:55:00) Phosphorus [2.5-4.5 mg/dL] 3.4 mg/dL (02/01/2013 04:58:00) Magnesium Lvl [1.8-2.4 mg/dL] 1.9 mg/dL (02/02/2013 06:52:00) 1.6 mg/dL *LOW* (02/01/2013 04:58:00) ALT [0-65 unit/L] 25 unit/L (01/31/2013 20:55:00) AST [0-37 unit/L] 24 unit/L (01/31/2013 20:55:00) Alk Phos [39-136 unit/L] 114 unit/L (01/31/2013 20:55:00) Bili Total [0.2-1.3 mg/dL] 1.0 mg/dL (01/31/2013 20:55:00) Lactic Acid Lvl [0.5-2.2 mMol/L] 2.7 mMol/L *HI* (01/31/2013 22:01:00) CHD Risk [4.00-7.30] 3.89 *LOW* (02/01/2013 04:58:00) Chol [120-200 mg/dL] 109 mg/dL *LOW* (02/01/2013 04:58:00) Trig [0-200 mg/dL] 100 mg/dL (02/01/2013 04:58:00) HDL [>=35 mg/dL] 28 mg/dL *LOW* (02/01/2013 04:58:00) LDL [0-129 mg/dL] 61 mg/dL (02/01/2013 04:58:00) Hgb A1C 10.9 % 10 *NA* (02/01/2013 04:58:00) Vanco Tr TND midnight *NA* (02/04/2013 00:21:00) Vanco Tr 10.7 ug/ml 11 *NA* (02/04/2013 00:21:00) 4Result Comment: The eGFR is calculated using the [...] from the [employer] ( [employer]) which additionally recommends that when the eGFR is used in patients with extremes of body mass index for purposes of drug dosing, the eGFR should be mul tiplied by the estimated BMI. 5Result Comment: The eGFR is calculated using the [...] from the [employer] ( [employer]) which additionally recommends that when the eGFR is used in patients with extremes of body mass index for purposes of drug dosing, the eGFR should be mul tiplied by the estimated BMI. 6Result Comment: The eGFR is calculated using the [...] from the [employer] ( [employer]) which additionally recommends that when the eGFR is used in patients with extremes of body mass index for purposes of drug dosing, the eGFR should be mul tiplied by the estimated BMI. 7Interpretive Data: Adult reference range values reflect the clinical guidelines of the [place] [employer]. 8Interpretive Data: Adult reference range values reflect the clinical guidelines of the [place] [employer]. 9Interpretive Data: Adult reference range values reflect the clinical guidelines of the [place] [employer]. 10Interpretive Data: HbA1C% eAG(mg/dL) Interpretation 6.0 126 Very good control 6.5 140 Very good control 7.0 154 Good Control 7.5 169 Good Control 8.0 183 Marginal Control, take action to lower 8.5 197 Marginal Control, take action to lower 9.0 212 Poor Control, take action to lower 9.5 226 Poor Control, take action to lower 10.0 240 Poor Control, take action to lower 11Interpretive Data: Therapeutic Range: Trough: 10 - 20 ug/mL Peak: 20 - 40 ug/mL Potential Toxicity: >80 ug/mL HEMATOLOGY Most recent to oldest [Reference Range]: 1 2 3 WBC [3.7-10.4 K/CMM] 6.1 K/CMM (02/06/2013 04:36:00) 6.6 K/CMM (02/02/2013 06:52:00) 11.4 K/CMM *HI* (01/31/2013 20:55:00) RBC [4.70-6.10 M/CMM] 3.62 M/CMM *LOW* (02/06/2013 04:36:00) 3.53 M/CMM *LOW* (02/02/2013 06:52:00) 4.24 M/CMM *LOW* (01/31/2013 20:55:00) Hgb [14.0-18.0 g/dL] 11.3 g/dL *LOW* (02/06/2013 04:36:00) 11.1 g/dL *LOW* (02/02/2013 06:52:00) 13.4 g/dL *LOW* (01/31/2013 20:55:00) Hct [42.0-54.0 %] 33.8 % *LOW* (02/06/2013 04:36:00) 33.0 % *LOW* (02/02/2013 06:52:00) 39.3 % *LOW* (01/31/2013 20:55:00) MCV [80.0-94.0 fL] 93.3 fL (02/06/2013 04:36:00) 93.5 fL (02/02/2013 06:52:00) 92.6 fL (01/31/2013 20:55:00) MCH [27.0-31.0 pg] 31.2 pg *HI* (02/06/2013 04:36:00) 31.5 pg *HI* (02/02/2013 06:52:00) 31.5 pg *HI* (01/31/2013 20:55:00) MCHC [32.0-36.0 g/dL] 33.4 g/dL (02/06/2013 04:36:00) 33.7 g/dL (02/02/2013 06:52:00) 34.0 g/dL (01/31/2013 20:55:00) RDW [11.5-14.5 %] 13.4 % (02/06/2013 04:36:00) 13.4 % (02/02/2013 06:52:00) 13.3 % (01/31/2013 20:55:00) Platelet [133-450 K/CMM] 188 K/CMM (02/06/2013 04:36:00) 143 K/CMM (02/02/2013 06:52:00) 169 K/CMM (01/31/2013 20:55:00) MPV [7.4-10.4 fL] 9.2 fL (02/06/2013 04:36:00) 10.6 fL *HI* (02/02/2013 06:52:00) 12.2 fL *HI* (01/31/2013 20:55:00) Segs [45.0-75.0 %] 63.4 % (02/06/2013 04:36:00) 67.5 % (02/02/2013 06:52:00) 82.9 % *HI* (01/31/2013 20:55:00) Lymphocytes [20.0-40.0 %] 21.4 % (02/06/2013 04:36:00) 17.9 % *LOW* (02/02/2013 06:52:00) 9.1 % *LOW* (01/31/2013 20:55:00) Monocytes [2.0-12.0 %] 10.3 % (02/06/2013 04:36:00) 11.3 % (02/02/2013 06:52:00) 7.6 % (01/31/2013 20:55:00) Eosinophils [0.0-4.0 %] 4.1 % *HI* (02/06/2013 04:36:00) 2.6 % (02/02/2013 06:52:00) 0.2 % (01/31/2013 20:55:00) Basophils [0.0-1.0 %] 0.8 % (02/06/2013 04:36:00) 0.7 % (02/02/2013 06:52:00) 0.2 % (01/31/2013 20:55:00) Segs-Bands # [1.5-8.1 K/CMM] 3.9 K/CMM (02/06/2013 04:36:00) 4.4 K/CMM (02/02/2013 06:52:00) 9.5 K/CMM *HI* (01/31/2013 20:55:00) Lymphocytes # [1.0-5.5 K/CMM] 1.3 K/CMM (02/06/2013 04:36:00) 1.2 K/CMM (02/02/2013 06:52:00) 1.0 K/CMM (01/31/2013 20:55:00) Monocytes # [0.0-0.8 K/CMM] 0.6 K/CMM (02/06/2013 04:36:00) 0.7 K/CMM (02/02/2013 06:52:00) 0.9 K/CMM *HI* (01/31/2013 20:55:00) Eosinophils # [0.0-0.5 K/CMM] 0.2 K/CMM (02/06/2013 04:36:00) 0.2 K/CMM (02/02/2013 06:52:00) 0.0 K/CMM (01/31/2013 20:55:00) Basophils # [0.0-0.2 K/CMM] 0.0 K/CMM (02/06/2013 04:36:00) 0.0 K/CMM (02/02/2013 06:52:00) 0.0 K/CMM (01/31/2013 20:55:00) Sed Rate [0-15 mm/hr] >100 mm/hr *HI* (02/01/2013 04:58:00) Microbiology Reports PROCEDURE:Culture: Anaerobic STATUS: In Progress BODY SITE: Foot R COLLECTED DATE/TIME: 02/05/2013 06:30:00 SOURCE: Wound, Surg FREE TEXT SOURCE: PRELIMINARY REPORTS Preliminary Report Culture In Progress PROCEDURE:Culture: Wound/Abscess w/Gram Stain STATUS: Auth (Verified) BODY SITE: Foot R COLLECTED DATE/TIME: 02/05/2013 06:30:00 SOURCE: Wound, Surg FREE TEXT SOURCE: FINAL REPORTS Final Report Moderate Group B Streptococcus ; No susceptibility performed since these organisms are predictably susceptible to penicillin. If patient is penicillin allergic or susceptibility testing for additional antibiotics is clinically warranted please call the laboratory. PRELIMINARY REPORTS Preliminary Report Holding For Better Growth STAIN REPORTS Stain Report No Wbc'S Or Organisms Seen PROCEDURE:Culture: Blood STATUS: Auth (Verified) BODY SITE: Wrist L COLLECTED DATE/TIME: 01/31/2013 22:13:13 SOURCE: Blood FREE TEXT SOURCE: FINAL REPORTS Final Report No Growth At 5 Days PRELIMINARY REPORTS Preliminary Report No Growth At 1 Day Preliminary Report No Growth At 4 Days Preliminary Report No Growth; Holding Preliminary Report No Growth At 3 Days Preliminary Report No Growth At 2 Days PROCEDURE:Culture: Blood STATUS: Auth (Verified) BODY SITE: Hand R COLLECTED DATE/TIME: 01/31/2013 22:01:18 SOURCE: Blood FREE TEXT SOURCE: FINAL REPORTS Final Report No Growth At 5 Days PRELIMINARY REPORTS Preliminary Report No Growth At 3 Days Preliminary Report No Growth At 2 Days Preliminary Report No Growth At 1 Day Preliminary Report No Growth; Holding Preliminary Report No Growth At 4 Days PROCEDURE:Culture: Wound/Abscess w/Gram Stain STATUS: Auth (Verified) BODY SITE: Foot R COLLECTED DATE/TIME: 01/31/2013 21:49:00 SOURCE: Abscess FREE TEXT SOURCE: swab FINAL REPORTS Final Report Many Methicillin Resistant Staphylococcus aureus Significant Findings Called To: Jessika Gama At: 02/05/2013 8:07 Called By: PC Read Back Ok . Many Group B Streptococcus No susceptibility performed since these organisms are predictably susceptible to penicillin. If patient is penicillin allergic or susceptibility testing for additional antibiotics is clinically warranted please call the laboratory. PRELIMINARY REPORTS Preliminary Report Holding For Better Growth Preliminary Report Many Staphylococcus aureus Sensitivity Pending . Many Group B Streptococcus No susceptibility performed since these organisms are predictably susceptible to penicillin. If patient is penicillin allergic or susceptibility testing for additional antibiotics is clinically warranted please call the laboratory. Preliminary Report Many Staphylococcus aureus Sensitivity Pending . Many Group B Streptococcus No susceptibility performed since these organisms are predictably susceptible to penicillin. If patient is penicillin allergic or susceptibility testing for additional antibiotics is clinically warranted please call the laboratory. Preliminary Report Many Methicillin Resistant Staphylococcus aureus Significant Findings Called To: Jessika Gama At: 02/05/2013 8:07 Called By: RYNE Read Back Ok . Many Group B Streptococcus No susceptibility performed since these organisms are predictably susceptible to penicillin. If patient is penicillin allergic or susceptibility testing for additional antibiotics is clinically warranted please call the laboratory. STAIN REPORTS Stain Report No Wbc'S Or Organisms Seen SUSCEPTIBILITY REPORT MRSA Antibiotic INTERP., KAUR., Clindamycin S <=0.25 Erythromycin S 0.5 Levofloxacin S <=0.5 Oxacillin R Rifampin S <=1 Tetracycline S <=1 Trimethoprim/Sulfamethoxazole S <=0.5/9.5 Vancomycin S 1
--- OUTSIDE RECORDS SUMMARY | 2019-05-19 11:00 | XMS REPORT | Summary of Care ---
Author Organization Unknown Address Unknown Phone Unavailable Encounter SANCHEZ Sultana([place]) [id number] Date(s): 04/26/14 - 05/25/14 [facility] [address] [address] Discharge Disposition: Home Physician Attending: Bairon Escobar MD Reason for Visit OSTEOMYELITIS Vital Signs Most recent to 1 oldest [Reference Range]: Height 165.1 cm (04/24/14 12:07 PM) Weight 109 kg (04/24/14 12:07 PM) Body Mass Index 39.99 m2 (04/24/14 12:07 PM) Problem List Condition Effective Dates Status Health Status Informant Diabetes(Confirmed) Resolved MRSA(Confirmed)1, 2, 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 2MRSA from the abscess on the Right foot 3Problem added by Discern Expert. 4Problem added by Discern Expert. Allergies, Adverse Reactions, Alerts Substance Reaction Severity Status penicillins Active Medications DAPTOmycin + Sodium Chloride 0.9% IV 50 mL 670 mg, Route: IVPB, Drug form: INJ, Q24H, Dosing Weight 112.273, kg, Start date : 04/26/14 8:00:00, Duration: 30 day, Stop date: 05/25/14 8:00:00 Notes: To be mixed with NS and run over 30min. (Same As: Jaziel) Restricted u se to Infectious Disease Physicians. Start Date: 04/26/14 Stop Date: 05/04/14 Status: Deleted Medications Administered During Your Visit No data available for this section Immunizations Vaccine Date Refusal Reason Hx influenza vaccine-unspecified1 09/22/12 pneumococcal 23-valent vaccine 05/09/14 tetanus toxoid 02/01/13 1Admin Note: received at [facility] Social History Social History Type Response Alcohol Use: Never Smoking Status Never smoker, Exposure to Tobacco Smoke None, Cigarette Smoking Last 365 Days No, Reg Smoking Cessation Counseling No
--- OUTSIDE RECORDS SUMMARY | 2019-05-19 11:00 | XMS REPORT | CCD ---
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 Medications Medication Instructions Start Date End Date Status Dextrose 50% Syringe 12.5 gm, 25 mL, Route: IVP, Drug 02/07/2013 02/07/2013 Deleted Form: INJ, Dosing Weight 109.091, kg, PRN, PRN Blood Glucose Results, Start date: 02/07/13 12:23:00, Duration: 30 day, Stop date: 03/09/13 12:22:00 Levaquin 500 mg, 100 mL, Route: IVPB, Drug 02/08/2013 03/10/2013 Discontinued form: INJ, Daily, Start date: 02/08/13 9:00:00, Duration: 30 day, Stop date: 04/08/13 9:00:00 vancomycin 1.5 gm, 250 mL, Route: IVPB, Drug 02/08/2013 03/10/2013 Discontinued form: INJ, Daily, Dosing Weight 109.091, kg, Start date: 02/08/13 9:00:00, Duration: 30 day, Stop date: 04/08/13 9:00:00 tetanus toxoid 0.5 ml, Route: IM, Drug Form: INJ, 01/31/2013 02/01/2013 Completed Dosing Weight 109.091, kg, ONCE, Start date: 01/31/13 22:54:00, Stop date: 01/31/13 22:54:00 sterile water 2.2 mL, Route: IV, Drug Form: INJ, 02/12/2013 02/12/2013 Ordered ONCE, Start date: 02/12/13 9:33:00, Stop date: 02/12/13 9:33:00 alteplase 4 mg, 4 mL, Route: IV, Drug form: 02/12/2013 02/12/2013 Ordered INJ, ONCE, Start date: 02/12/13 9:33:00, Stop date: 02/12/13 9:33:00 Immunizations Vaccine Date Status Hx influenza vaccine-unspecified1 09/22/2012 Auth (Verified) tetanus toxoid 02/01/2013 Auth (Verified) 1received at [facility] Vital Signs Most recent to oldest [Reference Range]: 1 Height 165.1 cm (02/07/2013 11:05:00) Weight 116 kg (02/07/2013 11:05:00)
--- OUTSIDE RECORDS SUMMARY | 2019-05-19 11:00 | XMS REPORT | Summary of Care ---
Author Organization Unknown Address Unknown Phone Unavailable Encounter [address]([place]) [id number] Date(s): 05/04/14 - 05/09/14 [facility] [address] Discharge Disposition: Home Physician Attending: Bairon Escobar MD Physician Admitting: Bairon Escobar MD Reason for Visit RIGHT FOOT OSTEOMYELITIS, OUTPT TX FAILURE Vital Signs 1 2 3 Most recent to oldest [Reference Range]: 165.1 cm (05/04/14 9:39 AM) Height 98.0 DegF (05/09/14 11:57 AM) 98.0 DegF (05/09/14 8:00 AM) 98.5 DegF (05/09/14 4:00 AM) Temperature Oral [96.4-99.1 DegF] 150 mmHg *HI* (05/09/14 11:57 AM) 149 mmHg *HI* (05/09/14 8:00 AM) 142 mmHg *HI* (05/09/14 4:00 AM) Systolic Blood Pressure [90-140 mmHg] 88 mmHg (05/09/14 11:57 AM) 83 mmHg (05/09/14 8:00 AM) 82 mmHg (05/09/14 4:00 AM) Diastolic Blood Pressure [60-90 mmHg] 17 BRMIN (05/09/14 11:57 AM) 17 BRMIN (05/09/14 8:00 AM) 16 BRMIN (05/09/14 4:00 AM) Respiratory Rate [14-20 BRMIN] 77 bpm (05/09/14 11:57 AM) 76 bpm (05/09/14 8:00 AM) 80 bpm (05/09/14 4:00 AM) Peripheral Pulse Rate [60-100 bpm] 109.091 kg (05/04/14 9:39 AM) Weight 40.02 m2 (05/04/14 9:39 AM) Body Mass Index Problem List Condition Effective Dates Status Health Status Informant Diabetes(Confirmed) Resolved MRSA(Confirmed)1, 2, 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 2MRSA from the abscess on the Right foot 3Problem added by Discern Expert. 4Problem added by Discern Expert. Allergies, Adverse Reactions, Alerts Substance Reaction Severity Status penicillins Active Medications acetaminophen 650 mg, 2 tab, Route: PO, Drug form: TAB, Q4H, Dosing Weight 109.091, kg, PRN Pa in 1-3/Temp > 100.4 F, Start date: 05/04/14 13:12:00, Duration: 30 day, Stop date: 06/03/14 13:11:00 Notes: Do not exceed 4 gm/day. (Same as: Tylenol) Start Date: 05/04/14 Stop Date: 05/09/14 Status: Discontinued acetaminophen-hydrocodone 325 mg-10 mg oral tablet 1 tab, Route: PO, Drug Form: TAB, Dosing Weight 109.091, kg, Q4H, PRN Pain Score 4-6, Start date: 05/04/14 13:12:00, Duration: 30 day, Stop date: 06/03/14 13:11 :00 Notes: Do not exceed 4gm/day of acetaminophen. (Same as: Colstrip 325/10) Start Date: 05/04/14 Stop Date: 05/04/14 Status: Discontinued acetaminophen-hydrocodone 325 mg-5 mg oral tablet 1 tab, Route: PO, Drug Form: TAB, Dosing Weight 109.091, kg, Q4H, PRN Pain Score 1-3, Start date: 05/04/14 13:12:00, Duration: 30 day, Stop date: 06/03/14 13:11 :00 Notes: (Same as: Colstrip 325/5) Do not exceed 4gm/day of acetaminophen. 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 On empty stomach. Start Date: 05/04/14 Stop Date: 05/05/14 Status: Discontinued ciprofloxacin 500 mg oral tablet 500 mg=1 tab, PO, Q12H, # 14 tab, 0 Refill(s) Start Date: 05/09/14 Status: Ordered ciprofloxacin 500 mg oral tablet 500 mg=1 tab, PO, Q12H, # 20 tab, 0 Refill(s) Start Date: 05/01/14 Stop Date: 05/09/14 Status: Discontinued docusate 100 mg, 1 cap, Route: PO, Drug form: CAP, BID, Dosing Weight 109.091, kg, PRN Co nstipation, Start date: 05/04/14 13:12:00, Duration: 30 day, Stop date: 06/03/14 13:11:00 Notes: (Same as: Colace) (Do Not Crush) Start Date: 05/04/14 Stop Date: 05/09/14 Status: Discontinued Flagyl 500 mg, 100 mL, Route: IVPB, Drug form: INJ, ABXQ8H, Dosing Weight 109.091, kg, Start date: 05/05/14 2:00:00, Duration: 30 day, Stop date: 06/03/14 18:00:00 Notes: (Same as: Flagyl) Avoid alcohol. Start Date: 05/05/14 Stop Date: 05/09/14 Status: Discontinued glipiZIDE 10 mg oral tablet 10 mg, 1 tab, Route: PO, Drug form: TAB, Before Breakfast, Dosing Weight 109.091 , kg, Start date: 05/05/14 7:30:00, Duration: 30 day, Stop date: 06/03/14 7:30:0 0 Notes: (Same as: Glucotrol) 30 min before meals. Start Date: 05/05/14 Stop Date: 05/09/14 Status: Discontinued insulin detemir 25 unit, 0.25 mL, Route: SUB-Q, Drug form: INJ, BID, Dosing Weight 109.091, kg, Start date: 05/05/14 9:00:00, Duration: 30 day, Stop date: 06/03/14 17:00:00 Notes: Same as Levemir "single patient use only" Start Date: 05/05/14 Stop Date: 05/09/14 Status: Discontinued metFORMIN 1000 mg oral tablet 1,000 mg, 2 tab, Route: PO, Drug form: TAB, BID-Meals, Dosing Weight 109.091, kg , Start date: 05/05/14 8:00:00, Duration: 30 day, Stop date: 06/03/14 17:00:00 Notes: (Same as: Glucophage) Take with meal Start Date: 05/05/14 Stop Date: 05/09/14 Status: Discontinued morphine Sulfate 2 mg, 1 mL, Route: IVP, Drug form: INJ, Q3H, Dosing Weight 109.091, kg, PRN Pain Score 7-10, Start date: 05/04/14 13:12:00, Duration: 30 day, Stop date: 06/03/14 13:11:00 Notes: (Same as:MORPhine Sulfate) Start Date: 05/04/14 Stop Date: 05/09/14 Status: Discontinued Colstrip 5/325 oral tablet 2 tab, Route: PO, Drug Form: TAB, Dosing Weight 109.091, kg, Q6H, PRN Pain Score 4-6, Start date: 05/04/14 17:57:00, Duration: 30 day, Stop date: 06/03/14 17:56 :00 Notes: (Same as: Colstrip 325/5) Do not exceed 4gm/day of acetaminophen. Start Date: 05/04/14 Stop Date: 05/09/14 Status: Discontinued Colstrip 7.5/325 oral tablet 1-2 tab, PO, Q4-6H, Pain, # 30 tab, 0 Refill(s) Start Date: 05/09/14 Stop Date: 05/14/14 Status: Ordered ondansetron 4 mg, 2 mL, Route: IVP, Drug form: INJ, Q8H, Dosing Weight 109.091, kg, PRN Naus ea & Vomiting, Start date: 05/04/14 13:12:00, Duration: 30 day, Stop date: 06/03/14 13:11:00 Notes: (Same as: Zofran) Start Date: 05/04/14 Stop Date: 05/09/14 Status: Discontinued pneumococcal 23-valent vaccine 0.5 ml, Route: IM, Drug Form: INJ, Daily, NOW, Start date: 05/09/14 10:33:00, Du ration: 1 doses or times, Stop date: 05/09/14 10:33:00 Notes: (Same as: Pneumovax 23) Refrigerate Start Date: 05/09/14 Stop Date: 05/09/14 Status: Completed Silvadene 1% topical cream 1 appl, Route: TOP, Daily, Drug form: CRM, Start date: 05/05/14 9:00:00, Duratio n: 30 day, Stop date: 06/03/14 9:00:00 Notes: (Same as: Silvadene) Start Date: 05/05/14 Stop Date: 05/09/14 Status: Discontinued vancomycin 750 mg, 150 mL, Route: IVPB, Drug form: SOLN, ABXQ8H, Dosing Weight 109.091, kg, Start date: 05/05/14 12:30:00, Duration: 30 day, Stop date: 06/04/14 4:30:00 Notes: Same as: Vancocin Start Date: 05/05/14 Stop Date: 05/09/14 Status: Discontinued vancomycin + Sodium Chloride 0.9% IV 500 mL 2,250 mg, Route: IVPB, ONCE, Dosing Weight 109.091, kg, Priority: STAT, Start da te: 05/04/14 11:58:00, Stop date: 05/04/14 11:58:00 Notes: (Same As: Vancocin) Start Date: 05/04/14 Stop Date: 05/04/14 Status: Completed Results ELECTROLYTES Most recent to 1 2 oldest [Reference Range]: Sodium Lvl [135-145 137 mEq/L 135 mEq/L mEq/L] (05/08/14 6:17 AM) (05/04/14 9:51 AM) Potassium Lvl 4.1 mEq/L 4.1 mEq/L [3.5-5.1 mEq/L] (05/08/14 6:17 AM) (05/04/14 9:51 AM) Chloride Lvl [95-109 104 mEq/L 102 mEq/L mEq/L] (05/08/14 6:17 AM) (05/04/14 9:51 AM) CO2 [24-32 mEq/L] 26 mEq/L 24 mEq/L (05/08/14 6:17 AM) (05/04/14 9:51 AM) AGAP [10.0-20.0 11.1 mEq/L 13.1 mEq/L mEq/L] (05/08/14 6:17 AM) (05/04/14 9:51 AM) CHEM PANEL Most recent to 1 2 oldest [Reference Range]: Creatinine Lvl 0.8 mg/dL 0.7 mg/dL [0.5-1.4 mg/dL] (05/08/14 6:17 AM) (05/04/14 9:51 AM) eGFR 105 mL/min/1.73m2 1 111 mL/min/1.73m2 2 *NA* *NA* (05/08/14 6:17 AM) (05/04/14 9:51 AM) BUN [7-22 mg/dL] 9 mg/dL 9 mg/dL (05/08/14 6:17 AM) (05/04/14 9:51 AM) B/C Ratio [6-25] 11 13 (05/08/14 6:17 AM) (05/04/14 9:51 AM) Glucose Lvl [70-99 95 mg/dL 3 156 mg/dL 4 mg/dL] (05/08/14 6:17 AM) *HI* (05/04/14 9:51 AM) Total Protein 6.9 g/dL 9.1 g/dL [6.4-8.4 g/dL] (05/08/14 6:17 AM) *HI* (05/04/14 9:51 AM) Albumin Lvl [3.5-5.0 2.4 g/dL 3.0 g/dL g/dL] *LOW* *LOW* (05/08/14 6:17 AM) (05/04/14 9:51 AM) Globulin [2.0-4.0 4.5 g/dL 6.1 g/dL g/dL] *HI* *HI* (05/08/14 6:17 AM) (05/04/14 9:51 AM) A/G Ratio [0.7-1.6] 0.5 0.5 *LOW* *LOW* (05/08/14 6:17 AM) (05/04/14 9:51 AM) Calcium Lvl 8.1 mg/dL 9.2 mg/dL [8.5-10.5 mg/dL] *LOW* (05/04/14 9:51 AM) (05/08/14 6:17 AM) ALT [0-65 unit/L] 19 unit/L 33 unit/L (05/08/14 6:17 AM) (05/04/14 9:51 AM) AST [0-37 unit/L] 20 unit/L 32 unit/L (05/08/14 6:17 AM) (05/04/14 9:51 AM) Alk Phos [39-136 89 unit/L 123 unit/L unit/L] (05/08/14 6:17 AM) (05/04/14 9:51 AM) Bili Total [0.2-1.3 0.4 mg/dL 0.5 mg/dL mg/dL] (05/08/14 6:17 AM) (05/04/14 9:51 AM) Lactic Acid Lvl 1.6 mMol/L [0.5-2.2 mMol/L] (05/04/14 12:05 PM) 1Result Comment: The eGFR is calculated using the [...] be mul tiplied by the estimated BMI. 2Result Comment: The eGFR is calculated using the [...] be mul tiplied by the estimated BMI. 3Interpretive Data: Adult reference range values reflect the clinical guidelines of the [place] [employer]. 4Interpretive Data: Adult reference range values reflect the clinical guidelines of the [place] [employer]. TOXICOLOGY Most recent to 1 2 oldest [Reference Range]: Vanco Lvl 9.0 ug/ml 5 *NA* (05/05/14 5:37 AM) 5Interpretive Data: Therapeutic Range: Trough: 10 - 20 ug/mL Peak: 20 - 40 ug/mL Potential Toxicity: >80 ug/mL IMMUNOLOGY Most recent to 1 2 oldest [Reference Range]: CRP [<=2.9 mg/L] 23.8 mg/L *HI* (05/04/14 9:51 AM) HEMATOLOGY Most recent to 1 2 oldest [Reference Range]: WBC [3.7-10.4 K/CMM] 7.4 K/CMM 6.2 K/CMM (05/08/14 6:17 AM) (05/04/14 9:51 AM) RBC [4.70-6.10 3.16 M/CMM 3.90 M/CMM M/CMM] *LOW* *LOW* (05/08/14 6:17 AM) (05/04/14 9:51 AM) Hgb [14.0-18.0 g/dL] 9.7 g/dL 11.8 g/dL *LOW* *LOW* (05/08/14 6:17 AM) (05/04/14 9:51 AM) Hct [42.0-54.0 %] 27.8 % 34.4 % *LOW* *LOW* (05/08/14 6:17 AM) (05/04/14 9:51 AM) MCV [80.0-94.0 fL] 87.8 fL 88.1 fL (05/08/14 6:17 AM) (05/04/14 9:51 AM) MCH [27.0-31.0 pg] 30.6 pg 30.1 pg (05/08/14 6:17 AM) (05/04/14 9:51 AM) MCHC [32.0-36.0 34.8 g/dL 34.2 g/dL g/dL] (05/08/14 6:17 AM) (05/04/14 9:51 AM) RDW [11.5-14.5 %] 13.6 % 13.3 % (05/08/14 6:17 AM) (05/04/14 9:51 AM) Platelet [133-450 166 K/CMM 249 K/CMM K/CMM] (05/08/14 6:17 AM) (05/04/14 9:51 AM) MPV [7.4-10.4 fL] 9.6 fL 9.7 fL (05/08/14 6:17 AM) (05/04/14 9:51 AM) Segs [45.0-75.0 %] 69.3 % 63.2 % (05/08/14 6:17 AM) (05/04/14 9:51 AM) Lymphocytes 19.1 % 26.2 % [20.0-40.0 %] *LOW* (05/04/14 9:51 AM) (05/08/14 6:17 AM) Monocytes [2.0-12.0 7.9 % 5.8 % %] (05/08/14 6:17 AM) (05/04/14 9:51 AM) Eosinophils [0.0-4.0 2.6 % 4.1 % %] (05/08/14 6:17 AM) *HI* (05/04/14 9:51 AM) Basophils [0.0-1.0 1.1 % 0.7 % %] *HI* (05/04/14 9:51 AM) (05/08/14 6:17 AM) Segs-Bands # 5.1 K/CMM 3.9 K/CMM [1.5-8.1 K/CMM] (05/08/14 6:17 AM) (05/04/14 9:51 AM) Lymphocytes # 1.4 K/CMM 1.6 K/CMM [1.0-5.5 K/CMM] (05/08/14 6:17 AM) (05/04/14 9:51 AM) Monocytes # [0.0-0.8 0.6 K/CMM 0.4 K/CMM K/CMM] (05/08/14 6:17 AM) (05/04/14 9:51 AM) Eosinophils # 0.2 K/CMM 0.3 K/CMM [0.0-0.5 K/CMM] (05/08/14 6:17 AM) (05/04/14 9:51 AM) Basophils # [0.0-0.2 0.1 K/CMM K/CMM] (05/08/14 6:17 AM) Sed Rate [0-15 >100 mm/hr mm/hr] *ABN* (05/04/14 9:51 AM) Medications Administered During Your Visit No data available for this section Immunizations Vaccine Date Refusal Reason Hx influenza vaccine-unspecified1 09/22/12 pneumococcal 23-valent vaccine 05/09/14 tetanus toxoid 02/01/13 1Admin Note: received at [facility] Social History Social History Type Response Alcohol Use: Never Smoking Status Never smoker, Exposure to Tobacco Smoke None, Cigarette Smoking Last 365 Days No, Reg Smoking Cessation Counseling No Assessment and Plan Extracted from: Title: IP [id number] Author: Pranav Corbin MD Date: 05/09/14 Impression [...] with Dr Zapien, he can be discharged [id number] hours of treatment. 2. Diabetes II: On medication and sliding scale. 3. Hypertension: On medication and stable at this time. Discharge planning as per ID recommendation.
--- OUTSIDE RECORDS SUMMARY | 2019-05-19 11:01 | XMS REPORT | Summary of Care ---
Author Author [facility] Organization [facility] Address Unknown Phone Unavailable [address]counter [address]) [phone] Date(s): 12/28/15 - 12/29/15 [facility] [address] [place] [address]- [phone] Discharge Diagnosis: Ankle sprain Discharge Disposition: Home Attending Physician: Nola Sanchez MD Vital Signs 1 2 3 Most recent to oldest [Reference Range]: 165.1 cm (12/28/15 5:17 PM) Height 98.4 DegF (12/29/15 1:50 AM) 98.4 DegF (12/29/15 12:18 AM) 98.2 DegF (12/28/15 10:10 PM) Temperature Oral [96.4-99.1 DegF] 126/78 mmHg (12/29/15 1:50 AM) 138/78 mmHg (12/29/15 12:18 AM) 142/86 mmHg *HI* (12/28/15 10:10 PM) Blood Pressure [90-140/60-90 mmHg] 18 BRMIN (12/29/15 1:50 AM) 18 BRMIN (12/29/15 12:18 AM) 18 BRMIN (12/28/15 10:10 PM) Respiratory Rate [14-20 BRMIN] 80 bpm (12/29/15 1:50 AM) 80 bpm (12/29/15 12:18 AM) 88 bpm (12/28/15 10:10 PM) Peripheral Pulse Rate [60-100 bpm] 99.091 kg (12/28/15 5:17 PM) Weight 36.35 m2 (12/28/15 5:17 PM) Body Mass Index Problem List Condition Effective Dates Status Health Status Informant Diabetes(Confirmed) Active MRSA(Confirmed)1, 2, 3 Active 3 Pseudomonas(Confirme Active d)4 28/07/14 ongoing ulceration of a right foot wound. 2MRSA from the abscess on the Right foot 3Problem added by Discern Expert. 4Problem added by Discern Expert. Allergies, Adverse Reactions, Alerts Substance Reaction Severity Status penicillins Active Medications Insulin regular 10 unit, 0.1 mL, Route: IVP, Drug form: INJ, ONCE, Dosing Weight 99.091, kg, Milly ority: STAT, Start date: 12/28/15 22:41:00, Stop date: 12/28/15 22:41:00 Notes: (Same as: Humulin R and NovoLIN R)WASTE: F/P - Black; E - Municipal Trash Bin (Do not shake) Start Date: 12/28/15 Stop Date: 12/29/15 Status: Completed normal saline 0.9% IV 1,000 mL 1,000 mL, Rate: 100 ml/hr, Infuse over: 10 hr, Route: IV, Dosing Weight 99.091 k g, Total Volume: 1,000, Start date: 12/28/15 22:41:00, Duration: 30 day, Stop da te: 01/27/16 22:40:00 Start Date: 12/28/15 Stop Date: 12/29/15 Status: Discontinued Tylenol 975 mg, Route: PO, Drug form: TAB, ONCE, Dosing Weight 99.091, kg, Priority: STA T, Start date: 12/28/15 17:24:00, Stop date: 12/28/15 17:24:00 Start Date: 12/28/15 Stop Date: 12/28/15 Status: Completed Tylenol with Codeine #3 oral tablet 1 - 2 tab, PO, Q4H, PRN Pain, X 3 day, # 20 tab, 0 Refill(s) Start Date: 12/28/15 Stop Date: 12/31/15 Status: Ordered Results ELECTROLYTES Most recent to 1 2 oldest [Reference Range]: Sodium Lvl [135-145 125 mEq/L mEq/L] *LOW* (12/28/15 8:39 PM) Potassium Lvl 3.8 mEq/L [3.5-5.1 mEq/L] (12/28/15 8:39 PM) Chloride Lvl [95-109 91 mEq/L mEq/L] *LOW* (12/28/15 8:39 PM) CO2 [24-32 mEq/L] 25 mEq/L (12/28/15 8:39 PM) AGAP [10.0-20.0 12.8 mEq/L mEq/L] (12/28/15 8:39 PM) CHEM PANEL Most recent to 1 2 oldest [Reference Range]: Creatinine Lvl 1.14 mg/dL [0.50-1.40 mg/dL] (12/28/15 8:39 PM) eGFR 74 mL/min/1.73m2 1 *NA* (12/28/15 8:39 PM) BUN [7-22 mg/dL] 14 mg/dL (12/28/15 8:39 PM) Glucose Lvl [70-99 452 mg/dL 2 mg/dL] *CRIT* (12/28/15 8:39 PM) Calcium Lvl 8.6 mg/dL [8.5-10.5 mg/dL] (12/28/15 8:39 PM) Ketone Quantitative 0.11 mmol/L [<=0.27 mmol/L] (12/28/15 8:39 PM) Lactic Acid Lvl 1.8 mMol/L 2.2 mMol/L [0.5-2.2 mMol/L] (12/29/15 12:05 AM) (12/28/15 8:39 PM) 1Result Comment: The eGFR is calculated [...] tiplied by the estimated BMI. 2Result Comment: Critical Result(s) called to dirk at 12/28/2015 21:17 by sol_. Read back OK. HEMATOLOGY Most recent to 1 2 oldest [Reference Range]: WBC [3.7-10.4 K/CMM] 11.4 K/CMM *HI* (12/28/15 8:39 PM) RBC [4.70-6.10 4.08 M/CMM M/CMM] *LOW* (12/28/15 8:39 PM) Hgb [14.0-18.0 g/dL] 11.7 g/dL *LOW* (12/28/15 8:39 PM) Hct [42.0-54.0 %] 35.7 % *LOW* (12/28/15 8:39 PM) MCV [80.0-94.0 fL] 87.7 fL (12/28/15 8:39 PM) MCH [27.0-31.0 pg] 28.7 pg (12/28/15 8:39 PM) MCHC [32.0-36.0 32.8 g/dL g/dL] (12/28/15 8:39 PM) RDW [11.5-14.5 %] 16.1 % *HI* (12/28/15 8:39 PM) Platelet [133-450 125 K/CMM K/CMM] *LOW* (12/28/15 8:39 PM) MPV [7.4-10.4 fL] 10.3 fL (12/28/15 8:39 PM) Segs [45.0-75.0 %] 77.0 % *HI* (12/28/15 8:39 PM) Bands [0.0-11.0 %] 12.0 % *HI* (12/28/15 8:39 PM) Lymphocytes 8.0 % [20.0-40.0 %] *LOW* (12/28/15 8:39 PM) Monocytes [2.0-12.0 3.0 % %] (12/28/15 8:39 PM) Segs-Bands # 10.1 K/CMM [1.5-8.1 K/CMM] *HI* (12/28/15 8:39 PM) Lymphocytes # 0.9 K/CMM [1.0-5.5 K/CMM] *LOW* (12/28/15 8:39 PM) Monocytes # [0.0-0.8 0.3 K/CMM K/CMM] (12/28/15 8:39 PM) RBC Morph Normal (12/28/15 8:39 PM) Plt Morph Normal (12/28/15 8:39 PM) Immunizations Vaccine Date Refusal Reason Hx influenza vaccine-unspecified1 09/22/12 pneumococcal 23-valent vaccine 05/09/14 tetanus toxoid 02/01/13 1Admin Note: received at hospital Procedures Procedure Date Related Diagnosis Body Site Amputation great toe 04/02/13 Amputation of toe Social History Social History Type Response Alcohol Current, Frequency: 1-2 times per week. Smoking Status Never smoker; Exposure to Tobacco Smoke None; Cigarette Smoking Last 365 Days No; Reg Smoking Cessation Counseling No Assessment and Plan No data available for this section
--- OUTSIDE RECORDS SUMMARY | 2019-05-19 11:01 | XMS REPORT | Summary of Care ---
Author Organization Unknown Address Unknown Phone Unavailable [address]counter [address]([place]) [id number] Date(s): 04/26/15 - 05/03/15 [facility] [id number] [place] [address]- Discharge Disposition: [facility] Physician Attending: Ayla Fletcher MD Physician Admitting: Ayla Fletcher MD Vital Signs 1 2 3 Most recent to oldest [Reference Range]: 165.1 cm (04/26/15 6:29 PM) Height 106.534 kg (05/03/15 5:57 AM) 108.636 kg (05/02/15 6:18 AM) 109.744 kg (05/01/15 5:05 AM) Current Weight 97.9 DegF (05/03/15 4:15 PM) 98.8 DegF (05/03/15 12:02 PM) 97.9 DegF (05/03/15 9:00 AM) Temperature Oral [96.4-99.1 DegF] 144/88 mmHg *HI* (05/03/15 4:15 PM) 135/82 mmHg (05/03/15 12:02 PM) 132/82 mmHg (05/03/15 9:00 AM) Blood Pressure [90-140/60-90 mmHg] 16 BRMIN (05/03/15 4:15 PM) 16 BRMIN (05/03/15 12:02 PM) 16 BRMIN (05/03/15 9:00 AM) Respiratory Rate [14-20 BRMIN] 68 bpm (05/03/15 4:15 PM) 73 bpm (05/03/15 12:02 PM) 72 bpm (05/03/15 9:00 AM) Peripheral Pulse Rate [60-100 bpm] 110.455 kg (04/30/15 2:51 PM) 100 kg (04/26/15 6:29 PM) 109.091 kg (04/26/15 9:01 AM) Weight 36.69 m2 (04/26/15 6:29 PM) Body Mass Index Problem List Condition [...] Q6H, Dosing Weight 100, kg, PRN For Te mp > 100.4 F, Start date: 04/27/15 5:33:00, Duration: 30 day, Stop date: 05/27/15 5:32:00 Notes: Do not exceed 4 gm/day. (Same as: Tylenol) Start Date: 04/27/15 Stop Date: 05/03/15 Status: Discontinued acetaminophen 325 mg oral tablet 650 mg=2 tab, PO, Q6H, PRN For Temp > 100.4 F, 0 Refill(s) Start Date: 05/03/15 Status: Ordered Ancef 1 gm, Route: IVPB, ONCE, Dosing Weight 100, kg, Start date: 04/30/15 7:49:00, Du ration: 1 doses or times, Stop date: 04/30/15 7:49:00 Start Date: 04/30/15 Stop Date: 04/30/15 Status: Completed aztreonam + Sodium Chloride 0.9% IV 100 mL 1 gm, Route: IV, ONCE, Dosing Weight 109.091, kg, Start date: 04/26/15 12:19:00, Stop date: 04/26/15 12:19:00 Notes: (Same As: Azactam) Start Date: 04/26/15 Stop Date: 04/26/15 Status: Completed cefTRIAXone + Sodium Chloride 0.9% IV 100 mL 2 gm, Route: IVPB, [id number], Dosing Weight 100, kg, Start date: 04/29/15 0:00:00, Duration: 30 day, Stop date: 05/28/15 0:00:00 Notes: (Same As: Rocephin). MEDICATION WASTE Product Size: [address] Wasted: ___ mg Start Date: 04/29/15 Stop Date: 05/03/15 Status: Discontinued cefTRIAXone 2 g injection 2 gm, IV, Q24H, X 10 day, # 10 ea, 0 Refill(s) Start Date: 05/03/15 Stop Date: 05/13/15 Status: Ordered clindamycin + Sodium Chloride 0.9% IV 44 mL 900 mg, 6 mL, Route: IVPB, Q8H-06, Dosing Weight 100, kg, Start date: 04/26/15 2 2:00:00, Duration: 30 day, Stop date: 05/26/15 14:00:00 Notes: (Same As: Cleocin) Start Date: 04/26/15 Stop Date: 04/28/15 Status: Discontinued Dakins Quarter Strength Solution 1 appl, Route: TOP, Drug Form: SOLN, Dosing Weight 100, kg, Daily, Start date: 0 04/28/15 9:00:00, Duration: 30 day, Stop date: 05/27/15 9:00:00 Notes: (Dakin's (0.125%=1/4 strength) 1000ml top SOLN) For external use only. N ote: quarter strength=0.125% sodium hypochlorite. Start Date: 04/28/15 Stop Date: 05/03/15 Status: Discontinued Dextrose 50% Syringe 25 gm, 50 mL, Route: IVP, Drug Form: INJ, Dosing Weight 109.091, kg, PRN, PRN Bl ood Glucose Results, Start date: 04/26/15 13:47:00, Duration: 30 day, Stop date: 05/26/15 13:46:00 Start Date: 04/26/15 Stop Date: 05/03/15 Status: Discontinued Dextrose 50% Syringe 12.5 gm, 25 mL, Route: IVP, Drug Form: INJ, Dosing Weight 109.091, kg, PRN, PRN Blood Glucose Results, Start date: 04/26/15 13:47:00, Duration: 30 day, Stop jose g e: 05/26/15 13:46:00 Start Date: 04/26/15 Stop Date: 05/03/15 Status: Discontinued Dextrose 50% Syringe 25 gm, 50 mL, Route: IVP, Drug Form: INJ, Dosing Weight 100, kg, PRN, PRN Blood Glucose Results, Start date: 04/26/15 19:48:00, Duration: 30 day, Stop date: 19:47:00 Start Date: 04/26/15 Stop Date: 05/03/15 Status: Discontinued Dextrose 50% Syringe 12.5 gm, 25 mL, Route: IVP, Drug Form: INJ, Dosing Weight 100, kg, PRN, PRN Bloo d Glucose Results, Start date: 04/26/15 19:48:00, Duration: 30 day, Stop date: 0 05/26/15 19:47:00 Start Date: 04/26/15 Stop Date: 05/03/15 Status: Discontinued Flagyl 500 mg, 1 tab, Route: PO, Drug form: TAB, ABXQ8H, Dosing Weight 100, kg, Start d ate: 04/29/15 0:00:00, Duration: 30 day, Stop date: 05/28/15 16:00:00 Notes: (Same as: Flagyl) Take with food/ avoid alcohol Start Date: 04/29/15 Stop Date: 05/03/15 Status: Discontinued glucagon 1 mg, Route: IM, Drug form: PDR/INJ, PRN, Dosing Weight 109.091, kg, PRN Blood G lucose Results, Start date: 04/26/15 13:47:00, Duration: 30 day, Stop date: 05/12 03/26 13:46:00 Start Date: 04/26/15 Stop Date: 05/03/15 Status: Discontinued glucagon 1 mg, Route: IM, Drug form: PDR/INJ, PRN, Dosing Weight 100, kg, PRN Blood Gluco se Results, Priority: STAT, Start date: 04/26/15 19:48:00, Duration: 30 day, Sto p date: 05/26/15 19:47:00 Start Date: 04/26/15 Stop Date: 05/03/15 Status: Discontinued glucagon recombinant 1 mg injection 1 mg, IM, PRN, PRN Blood Glucose Results, 0 Refill(s) Start Date: 05/03/15 Status: Ordered glucagon recombinant 1 mg injection 1 mg, IM, PRN, PRN Blood Glucose Results, 0 Refill(s) Start Date: 05/03/15 Status: Ordered insulin aspart 3 unit, 0.03 mL, Route: SUB-Q, Drug form: SOLN, TID-Before Meals, Dosing Weight 109.091, kg, PRN Blood Glucose Results, Start date: 04/26/15 13:47:00, Duration: 30 day, Stop date: 05/26/15 13:46:00 Notes: Roll in palms of hands gently; Do not shake vigorously. (Same as: NovoLO G)"single patient use only" Stable for 28 days at room temperature.Expires in _ ____ days from Date Start Date: 04/26/15 Stop Date: 05/03/15 Status: Discontinued insulin aspart 3 unit, 0.03 mL, Route: SUB-Q, Drug form: SOLN, Bedtime, Dosing Weight 109.091, kg, PRN Blood Glucose Results, Start date: 04/26/15 13:47:00, Duration: 30 day, Stop date: 05/26/15 13:46:00 Notes: Roll in palms of hands gently; Do not shake vigorously. (Same as: NovoLO G)"single patient use only" Stable for 28 days at room temperature.Expires in _ ____ days from Date Start Date: 04/26/15 Stop Date: 05/03/15 Status: Discontinued insulin aspart 4 unit, 0.04 mL, Route: SUB-Q, Drug form: SOLN, Bedtime, Dosing Weight 109.091, kg, PRN Blood Glucose Results, Start date: 04/26/15 13:47:00, Duration: 30 day, Stop date: 05/26/15 13:46:00 Notes: Roll in palms of hands gently; Do not shake vigorously. (Same as: NovoLO G)"single patient use only" Stable for 28 days at room temperature.Expires in _ ____ days from Date Start Date: 04/26/15 Stop Date: 05/03/15 Status: Discontinued insulin aspart 1 unit, 0.01 mL, Route: SUB-Q, Drug form: SOLN, Bedtime, Dosing Weight 109.091, kg, PRN Blood Glucose Results, Start date: 04/26/15 13:47:00, Duration: 30 day, Stop date: 05/26/15 13:46:00 Notes: Roll in palms of hands gently; Do not shake vigorously. (Same as: NovoLO G)"single patient use only" Stable for 28 days at room temperature.Expires in _ ____ days from Date Start Date: 04/26/15 Stop Date: 05/03/15 Status: Discontinued insulin aspart 2 unit, 0.02 mL, Route: SUB-Q, Drug form: SOLN, Bedtime, Dosing Weight 109.091, kg, PRN Blood Glucose Results, Start date: 04/26/15 13:47:00, Duration: 30 day, Stop date: 05/26/15 13:46:00 Notes: Roll in palms of hands gently; Do not shake vigorously. (Same as: NovoLO G)"single patient use only" Stable for 28 days at room temperature.Expires in _ ____ days from Date Start Date: 04/26/15 Stop Date: 05/03/15 Status: Discontinued insulin aspart 15 unit, 0.15 mL, Route: SUB-Q, Drug form: SOLN, TID-Before Meals, Dosing Weight 109.091, kg, PRN Blood Glucose Results, Start date: 04/26/15 13:47:00, Duration: 30 day, Stop date: 05/26/15 13:46:00 Notes: Roll in palms of hands gently; Do not shake vigorously. (Same as: NovoLO G)"single patient use only" Stable for 28 days at room temperature.Expires in _ ____ days from Date Start Date: 04/26/15 Stop Date: 05/03/15 Status: Discontinued insulin aspart 9 unit, 0.09 mL, Route: SUB-Q, Drug form: SOLN, TID-Before Meals, Dosing Weight 109.091, kg, PRN Blood Glucose Results, Start date: 04/26/15 13:47:00, Duration: 30 day, Stop date: 05/26/15 13:46:00 Notes: Roll in palms of hands gently; Do not shake vigorously. (Same as: NovoLO G)"single patient use only" Stable for 28 days at room temperature.Expires in _ ____ days from Date Start Date: 04/26/15 Stop Date: 05/03/15 Status: Discontinued insulin aspart 12 unit, 0.12 mL, Route: SUB-Q, Drug form: SOLN, TID-Before Meals, Dosing Weight 109.091, kg, PRN Blood Glucose Results, Start date: 04/26/15 13:47:00, Duration: 30 day, Stop date: 05/26/15 13:46:00 Notes: Roll in palms of hands gently; Do not shake vigorously. (Same as: NovoLO G)"single patient use only" Stable for 28 days at room temperature.Expires in _ ____ days from Date Start Date: 04/26/15 Stop Date: 05/03/15 Status: Discontinued insulin aspart 6 unit, 0.06 mL, Route: SUB-Q, Drug form: SOLN, TID-Before Meals, Dosing Weight 109.091, kg, PRN Blood Glucose Results, Start date: 04/26/15 13:47:00, Duration: 30 day, Stop date: 05/26/15 13:46:00 Notes: Roll in palms of hands gently; Do not shake vigorously. (Same as: NovoLO G)"single patient use only" Stable for 28 days at room temperature.Expires in _ ____ days from Date Start Date: 04/26/15 Stop Date: 05/03/15 Status: Discontinued insulin aspart 1 unit, 0.01 mL, Route: SUB-Q, Drug form: SOLN, Sliding Scale, Dosing Weight 100 , kg, PRN Blood Glucose Results, Start date: 04/26/15 19:48:00, Duration: 30 day , Stop date: 05/26/15 19:47:00 Notes: Roll in palms of hands gently; Do not shake vigorously. (Same as: NovoLO G)"single patient use only" Stable for 28 days at room temperature.Expires in _ ____ days from Date Start Date: 04/26/15 Stop Date: 04/26/15 Status: Deleted insulin aspart 3 unit, 0.03 mL, Route: SUB-Q, Drug form: SOLN, Sliding Scale, Dosing Weight 100 , kg, PRN Blood Glucose Results, Start date: 04/26/15 19:48:00, Duration: 30 day , Stop date: 05/26/15 19:47:00 Notes: Roll in palms of hands gently; Do not shake vigorously. (Same as: NovoLO G)"single patient use only" Stable for 28 days at room temperature.Expires in _ ____ days from Date Start Date: 04/26/15 Stop Date: 04/26/15 Status: Deleted insulin aspart 2 unit, 0.02 mL, Route: SUB-Q, Drug form: SOLN, Sliding Scale, Dosing Weight 100 , kg, PRN Blood Glucose Results, Start date: 04/26/15 19:48:00, Duration: 30 day , Stop date: 05/26/15 19:47:00 Notes: Roll in palms of hands gently; Do not shake vigorously. (Same as: NovoLO G)"single patient use only" Stable for 28 days at room temperature.Expires in _ ____ days from Date Start Date: 04/26/15 Stop Date: 04/26/15 Status: Deleted insulin aspart 5 unit, 0.05 mL, Route: SUB-Q, Drug form: SOLN, Sliding Scale, Dosing Weight 100 , kg, PRN Blood Glucose Results, Start date: 04/26/15 19:48:00, Duration: 30 day , Stop date: 05/26/15 19:47:00 Notes: Roll in palms of hands gently; Do not shake vigorously. (Same as: NovoLO G)"single patient use only" Stable for 28 days at room temperature.Expires in _ ____ days from Date Start Date: 04/26/15 Stop Date: 04/26/15 Status: Deleted insulin aspart 4 unit, 0.04 mL, Route: SUB-Q, Drug form: SOLN, Sliding Scale, Dosing Weight 100 , kg, PRN Blood Glucose Results, Start date: 04/26/15 19:48:00, Duration: 30 day , Stop date: 05/26/15 19:47:00 Notes: Roll in palms of hands gently; Do not shake vigorously. (Same as: NovoLO G)"single patient use only" Stable for 28 days at room temperature.Expires in _ ____ days from Date Start Date: 04/26/15 Stop Date: 04/26/15 Status: Deleted insulin aspart 10 unit, SUB-Q, TID-Before Meals, 0 Refill(s) Start Date: 05/03/15 Status: Ordered insulin aspart 4 unit, SUB-Q, Bedtime, PRN Blood Glucose Results, 0 Refill(s) Start Date: 05/03/15 Status: Ordered insulin aspart 3 unit, SUB-Q, Bedtime, PRN Blood Glucose Results, 0 Refill(s) Start Date: 05/03/15 Status: Ordered insulin aspart 2 unit, SUB-Q, Bedtime, PRN Blood Glucose Results, 0 Refill(s) Start Date: 05/03/15 Status: Ordered insulin aspart 1 unit, SUB-Q, Bedtime, PRN Blood Glucose Results, 0 Refill(s) Start Date: 05/03/15 Status: Ordered insulin aspart 15 unit, SUB-Q, TID-Before Meals, PRN Blood Glucose Results, 0 Refill(s) Start Date: 05/03/15 Status: Ordered insulin aspart 12 unit, SUB-Q, TID-Before Meals, PRN Blood Glucose Results, 0 Refill(s) Start Date: 05/03/15 Status: Ordered insulin aspart 9 unit, SUB-Q, TID-Before Meals, PRN Blood Glucose Results, 0 Refill(s) Start Date: 05/03/15 Status: Ordered insulin aspart 6 unit, SUB-Q, TID-Before Meals, PRN Blood Glucose Results, 0 Refill(s) Start Date: 05/03/15 Status: Ordered insulin aspart 3 unit, SUB-Q, TID-Before Meals, PRN Blood Glucose Results, 0 Refill(s) Start Date: 05/03/15 Status: Ordered insulin detemir 100 units/mL subcutaneous solution 30 unit, SUB-Q, Bedtime, 0 Refill(s) Start Date: 05/03/15 Status: Ordered Insulin regular 10 unit, 0.1 mL, Route: SUB-Q, Drug form: INJ, ONCE, Dosing Weight 109.091, kg, Priority: STAT, Start date: 04/26/15 13:41:00, Stop date: 04/26/15 13:41:00 Notes: (Same as: Humulin R and NovoLIN R) (Do not shake) Start Date: 04/26/15 Stop Date: 04/26/15 Status: Completed iron sucrose + Sodium Chloride 0.9% IV 250 mL 300 mg, 15 mL, Route: IVPB, Drug form: INJ, BID, Dosing Weight 100, kg, Start da te: 04/30/15 1:15:00, Duration: 6 doses or times, Stop date: 05/02/15 5:00:00 Notes: Each 5ml contains 100mg elemental iron. Mix with NS(Same as:Joe)Admi nister IV only. MEDICATION WASTE Product Size: 100 mgProduct Wasted: _ __ mg Start Date: 04/30/15 Stop Date: 05/02/15 Status: Completed Levemir 30 unit, 0.3 mL, Route: SUB-Q, Drug form: INJ, Q12H, Dosing Weight 109.091, kg, Start date: 04/26/15 21:00:00, Duration: 30 day, Stop date: 05/26/15 9:00:00 Notes: Same as LevemirDo not hold insulin without contacting prescriber "single patient use only" Start Date: 04/26/15 Stop Date: 04/26/15 Status: Discontinued Levemir 30 unit, 0.3 mL, Route: SUB-Q, Drug form: INJ, Bedtime, Dosing Weight 109.091, k g, Start date: 04/27/15 21:00:00, Duration: 30 day, Stop date: 05/26/15 21:00:00 Notes: Same as LevemirDo not hold insulin without contacting prescriber "single patient use only" Start Date: 04/27/15 Stop Date: 05/03/15 Status: Discontinued Levemir 10 unit, 0.1 mL, Route: SUB-Q, Drug form: INJ, ONCE, Dosing Weight 100, kg, Star t date: 04/27/15 6:41:00, Stop date: 04/27/15 6:41:00 Notes: Same as LevemirDo not hold insulin without contacting prescriber "single patient use only" Start Date: 04/27/15 Stop Date: 04/27/15 Status: Completed meropenem + Sodium Chloride 0.9% IV 100 mL 1,000 mg, Route: IV, Q8H, Dosing Weight 100, kg, Start date: 04/27/15 0:00:00, D uration: 30 day, Stop date: 05/26/15 16:00:00 Notes: (Same as: Merrem) . MEDICATION WASTE Product Size: 1000 mgProduc t Wasted: ___ mg Start Date: 04/27/15 Stop Date: 04/28/15 Status: Discontinued metroNIDAZOLE 500 mg oral tablet 500 mg=1 tab, PO, ABXQ8H, 0 Refill(s) Start Date: 05/03/15 Status: Ordered morphine Sulfate 2 mg, 1 mL, Route: IVP, Drug form: INJ, Q4H, Dosing Weight 100, kg, PRN Pain Sco re 4-6, Start date: 04/27/15 7:16:00, Duration: 30 day, Stop date: 05/27/15 7:15 :00 Notes: (Same as:MORPhine Sulfate) Start Date: 04/27/15 Stop Date: 05/03/15 Status: Discontinued morphine Sulfate 2 mg=1 mL, IVP, Q4H, PRN Pain Score 4-6, 0 Refill(s) Start Date: 05/03/15 Status: Ordered morphine Sulfate 4 mg=2 mL, IVP, Q4H, PRN Pain Score 7-10, 0 Refill(s) Start Date: 05/03/15 Status: Ordered morphine Sulfate 4 mg, 2 mL, Route: IVP, Drug form: INJ, Q4H, Dosing Weight 100, kg, PRN Pain Sco re 7-10, Start date: 04/27/15 7:16:00, Duration: 30 day, Stop date: 05/27/15 7:1 5:00 Notes: (Same as:MORPhine Sulfate) Start Date: 04/27/15 Stop Date: 05/03/15 Status: Discontinued [place] 10/325 oral tablet 1 tab, PO, Q4H, PRN Pain Score 1-3, 0 Refill(s) Start Date: 05/03/15 Status: Ordered [place] 10/325 oral tablet 1 tab, Route: PO, Drug Form: TAB, Dosing Weight 100, kg, Q4H, PRN Pain Score 1-3 , Start date: 04/27/15 5:35:00, Duration: 30 day, Stop date: 05/27/15 5:34:00 Notes: Do not exceed 4gm/day of acetaminophen. (Same as: [place] 325/10) Start Date: 04/27/15 Stop Date: 05/03/15 Status: Discontinued NovoLOG 10 unit, 0.1 mL, Route: SUB-Q, Drug form: SOLN, TID-Before Meals, Dosing Weight 109.091, kg, Start date: 04/26/15 16:30:00, Duration: 30 day, Stop date: 5 11:30:00 Notes: Roll in palms of hands gently; Do not shake vigorously. (Same as: NovoLO G)"single patient use only" Stable for 28 days at room temperature.Expires in _ ____ days from Date Start Date: 04/26/15 Stop Date: 05/03/15 Status: Discontinued potassium chloride 40 mEq, 2 tab, Route: PO, Drug form: ERTAB, Q4H, Dosing Weight 100, kg, Start da te: 04/29/15 8:00:00, Duration: 3 doses or times, Stop date: 04/29/15 16:00:00 Notes: (Same as: K-Dur 20)"Do Not Crush" With food and full glass of water Start Date: 04/29/15 Stop Date: 04/29/15 Status: Completed Saline Flush 0.9% 10 ml, Route: IVP, Drug Form: INJ, Dosing Weight 100, kg, PRN, PRN Line Flush, S tart date: 04/26/15 19:22:00, Duration: 30 day, Stop date: 05/26/15 19:21:00 Notes: (Same as: BD Posiflush) Start Date: 04/26/15 Stop Date: 05/03/15 Status: Discontinued Sodium Chloride 0.9% (Bolus) IV 1,000 mL, 1000 ml/hr, Infuse Over: 1 hr, Route: IV, 1,000, Drug form: INJ, ONCE, Priority: STAT, Dosing Weight 109.091 kg, Start date: 04/26/15 10:37:00, Durati on: 1 doses or times, Stop date: 04/26/15 10:37:00 Start Date: 04/26/15 Stop Date: 04/26/15 Status: Completed Sodium Chloride 0.9% IV 1,000 mL 1,000 mL, Rate: 125 ml/hr, Infuse over: 8 hr, Route: IV, Dosing Weight 100 kg, T otal Volume: 1,000, Start date: 04/26/15 19:22:00, Duration: 30 day, Stop date: 05/26/15 19:21:00 Start Date: 04/26/15 Stop Date: 04/29/15 Status: Discontinued sodium hypochlorite topical 0.125% solution TOP, Daily, 0 Refill(s) Start Date: 05/03/15 Status: Ordered Tylenol 650 mg, 2 tab, Route: PO, Drug form: TAB, ONCE, Dosing Weight 109.091, kg, Prior ity: STAT, Start date: 04/26/15 10:37:00, Stop date: 04/26/15 10:37:00 Notes: Do not exceed 4 gm/day. (Same as: Tylenol) Start Date: 04/26/15 Stop Date: 04/26/15 Status: Completed vancomycin 750 mg, 150 mL, Route: IV, Drug form: INJ, Q8H-05, Dosing Weight 100, kg, Start date: 04/26/15 21:00:00, Duration: 30 day, Stop date: 05/26/15 13:00:00 Notes: TIME CRITICAL MEDICATIONSame as: VancocinInfusion rate< 1000 mg: infuse over 1 [id number] - 1500 mg: infuse over 1.5 [id number] - 2000 mg: infuse over 2 hours> 2001 mg: infuse over 2.5 hours Start Date: 04/26/15 Stop Date: 04/28/15 Status: Discontinued vancomycin 1 gm, 200 mL, Route: IVPB, Drug form: INJ, ONCE, Dosing Weight 109.091, kg, Prio rity: STAT, Start date: 04/26/15 12:18:00, Stop date: 04/26/15 12:18:00 Notes: TIME CRITICAL MEDICATION Start Date: 04/26/15 Stop Date: 04/26/15 Status: Completed vancomycin 1,636.365 mg, Route: IVPB, ABXQ8H, Dosing Weight 109.091, kg, TIME CRITICAL MEDI CATION, Start date: 04/26/15 20:00:00, Duration: 30 day, Stop date: 05/26/15 12: 00:00 Start Date: 04/26/15 Stop Date: 04/26/15 Status: Deleted Results ELECTROLYTES 1 2 3 Most recent to oldest [Reference Range]: 135 mEq/L (05/03/15 6:06 AM) 143 mEq/L (04/29/15 3:47 AM) 134 mEq/L *LOW* (04/28/15 4:08 AM) Sodium Lvl [135-145 mEq/L] 4.1 mEq/L (05/03/15 6:06 AM) 3.9 mEq/L (05/02/15 5:54 AM) 4.2 mEq/L (05/01/15 4:02 AM) Potassium Lvl [3.5-5.1 mEq/L] 101 mEq/L (05/03/15 6:06 AM) 115 mEq/L *HI* (04/29/15 3:47 AM) 99 mEq/L (04/28/15 4:08 AM) Chloride Lvl [95-109 mEq/L] 25 mEq/L (05/03/15 6:06 AM) 20 mEq/L *LOW* (04/29/15 3:47 AM) 27 mEq/L (04/28/15 4:08 AM) CO2 [24-32 mEq/L] 13.1 mEq/L (05/03/15 6:06 AM) 10.8 mEq/L (04/29/15 3:47 AM) 11.6 mEq/L (04/28/15 4:08 AM) AGAP [10.0-20.0 mEq/L] CHEM PANEL 1 2 3 Most recent to oldest [Reference Range]: 0.9 mg/dL (05/03/15 6:06 AM) 0.6 mg/dL (04/29/15 3:47 AM) 1.0 mg/dL (04/28/15 4:08 AM) Creatinine Lvl [0.5-1.4 mg/dL] 99 mL/min/1.73m2 1 *NA* (05/03/15 6:06 AM) 117 mL/min/1.73m2 2 *NA* (04/29/15 3:47 AM) 87 mL/min/1.73m2 3 *NA* (04/28/15 4:08 AM) eGFR 13 mg/dL (05/03/15 6:06 AM) 11 mg/dL (04/29/15 3:47 AM) 18 mg/dL (04/28/15 4:08 AM) BUN [7-22 mg/dL] 14 (05/03/15 6:06 AM) 13 (04/26/15 10:38 AM) B/C Ratio [6-25] 139 mg/dL 4 *HI* (05/03/15 6:06 AM) 84 mg/dL 5 (04/29/15 3:47 AM) 145 mg/dL 6 *HI* (04/28/15 4:08 AM) Glucose Lvl [70-99 mg/dL] 8.0 g/dL (05/03/15 6:06 AM) 7.5 g/dL (04/26/15 10:38 AM) Total Protein [6.4-8.4 g/dL] 2.2 g/dL *LOW* (05/03/15 6:06 AM) 2.7 g/dL *LOW* (04/26/15 10:38 AM) Albumin Lvl [3.5-5.0 g/dL] 5.8 g/dL *HI* (05/03/15 6:06 AM) 4.8 g/dL *HI* (04/26/15 10:38 AM) Globulin [2.0-4.0 g/dL] 0.4 *LOW* (05/03/15 6:06 AM) 0.6 *LOW* (04/26/15 10:38 AM) A/G Ratio [0.7-1.6] 8.6 mg/dL (05/03/15 6:06 AM) 5.8 mg/dL 7 *CRIT* (04/29/15 3:47 AM) 7.8 mg/dL *LOW* (04/28/15 4:08 AM) Calcium Lvl [8.5-10.5 mg/dL] 27 unit/L (05/03/15 6:06 AM) 25 unit/L (04/26/15 10:38 AM) ALT [0-65 unit/L] 42 unit/L *HI* (05/03/15 6:06 AM) 19 unit/L (04/26/15 10:38 AM) AST [0-37 unit/L] 97 unit/L (05/03/15 6:06 AM) 82 unit/L (04/26/15 10:38 AM) Alk Phos [39-136 unit/L] 0.4 mg/dL (05/03/15 6:06 AM) 1.5 mg/dL *HI* (04/26/15 10:38 AM) Bili Total [0.2-1.3 mg/dL] 2.0 mMol/L (04/26/15 10:38 AM) Lactic Acid Lvl [0.5-2.2 mMol/L] 2.37 ng/mL 8 *CRIT* (04/27/15 4:25 AM) Procalcitonin Lvl [0.00-0.10 ng/mL] 1Result Comment: The eGFR is calculated using [...] be mul tiplied by the estimated BMI. 3Result Comment: The eGFR is calculated using the [...] be mul tiplied by the estimated BMI. 4Interpretive Data: Adult reference range values reflect the clinical guidelines of the [place] [employer]. 5Interpretive Data: Adult reference range values reflect the clinical guidelines of the [place] [employer]. 6Interpretive Data: Adult reference range values reflect the clinical guidelines of the [place] [employer]. 7Result Comment: Critical Result(s) called to Jose Pérez at 04/29/2015 04:59 by allie. Read back OK. 8Result Comment: Critical Result(s) called to Jordin Pruitt at 04/27/2015 05:45 by SHE. Read back OK. SPECIAL CHEMISTRY 1 2 3 Most recent to oldest [Reference Range]: 9.2 % *HI* (04/26/15 10:38 AM) Hgb A1C [<=5.6 %] ANEMIA STUDY 1 2 3 Most recent to oldest [Reference Range]: 32 ug/dl *LOW* (04/29/15 3:47 AM) Iron [45-160 ug/dl] 413 ng/mL *HI* (04/29/15 3:47 AM) Ferritin Lvl [22-275 ng/mL] 27 % (04/29/15 3:47 AM) % S[place] Fe [12-57 %] 85 ug/dl *LOW* (04/29/15 3:47 AM) UIBC [110-370 ug/dl] 637 pg/mL (04/28/15 4:08 AM) Vitamin B12 Lvl [254-1320 pg/mL] 4.0 ng/mL (04/29/15 3:47 AM) Folate Lvl [>=3.0 ng/mL] 117 ug/dl *LOW* (04/29/15 3:47 AM) TIBC [228-428 ug/dl] TOXICOLOGY 1 2 3 Most recent to oldest [Reference Range]: 0500 *NA* (04/28/15 4:08 AM) Lillie Church TND 10.4 ug/ml 9 *NA* (04/28/15 4:08 AM) Lillie Church 9Interpretive Data: Therapeutic Range: Trough: 10 - 20 ug/mL Peak: 20 - 40 ug/mL Potential Toxicity: >80 ug/mL IMMUNOLOGY 1 2 3 Most recent to oldest [Reference Range]: 5.3 mg/dL *LOW* (05/01/15 4:02 AM) Prealbumin [18.0-45.0 mg/dL] 175.0 mg/L *HI* (04/27/15 4:25 AM) CRP [<=2.9 mg/L] HEMATOLOGY 1 2 3 Most recent to oldest [Reference Range]: 6.3 K/CMM (05/03/15 6:06 AM) 5.7 K/CMM (04/29/15 3:47 AM) 7.8 K/CMM (04/28/15 4:08 AM) WBC [3.7-10.4 K/CMM] 3.79 M/CMM *LOW* (05/03/15 6:06 AM) 2.89 M/CMM *LOW* (04/29/15 3:47 AM) 3.35 M/CMM *LOW* (04/28/15 4:08 AM) RBC [4.70-6.10 M/CMM] 12.5 g/dL *LOW* (05/03/15 6:06 AM) 9.6 g/dL *LOW* (04/29/15 3:47 AM) 11.1 g/dL *LOW* (04/28/15 4:08 AM) Hgb [14.0-18.0 g/dL] 35.9 % *LOW* (05/03/15 6:06 AM) 27.4 % *LOW* (04/29/15 3:47 AM) 31.5 % *LOW* (04/28/15 4:08 AM) Hct [42.0-54.0 %] 94.6 fL *HI* (05/03/15 6:06 AM) 94.9 fL *HI* (04/29/15 3:47 AM) 94.1 fL *HI* (04/28/15 4:08 AM) MCV [80.0-94.0 fL] 33.1 pg *HI* (05/03/15 6:06 AM) 33.3 pg *HI* (04/29/15 3:47 AM) 33.3 pg *HI* (04/28/15 4:08 AM) MCH [27.0-31.0 pg] 34.9 g/dL (05/03/15 6:06 AM) 35.1 g/dL (04/29/15 3:47 AM) 35.4 g/dL (04/28/15 4:08 AM) MCHC [32.0-36.0 g/dL] 13.6 % (05/03/15 6:06 AM) 13.2 % (04/29/15 3:47 AM) 13.1 % (04/28/15 4:08 AM) RDW [11.5-14.5 %] 271 K/CMM (05/03/15 6:06 AM) 123 K/CMM *LOW* (04/29/15 3:47 AM) 132 K/CMM *LOW* (04/28/15 4:08 AM) Platelet [133-450 K/CMM] 9.9 fL (05/03/15 6:06 AM) 10.7 fL *HI* (04/29/15 3:47 AM) 10.5 fL *HI* (04/28/15 4:08 AM) MPV [7.4-10.4 fL] 65.7 % (05/03/15 6:06 AM) 72.4 % (04/29/15 3:47 AM) 76.4 % *HI* (04/28/15 4:08 AM) Segs [45.0-75.0 %] 20.5 % (05/03/15 6:06 AM) 14.9 % *LOW* (04/29/15 3:47 AM) 13.5 % *LOW* (04/28/15 4:08 AM) Lymphocytes [20.0-40.0 %] 8.5 % (05/03/15 6:06 AM) 8.7 % (04/29/15 3:47 AM) 8.1 % (04/28/15 4:08 AM) Monocytes [2.0-12.0 %] 4.0 % (05/03/15 6:06 AM) 3.3 % (04/29/15 3:47 AM) 1.5 % (04/28/15 4:08 AM) Eosinophils [0.0-4.0 %] 1.3 % *HI* (05/03/15 6:06 AM) 0.7 % (04/29/15 3:47 AM) 0.5 % (04/28/15 4:08 AM) Basophils [0.0-1.0 %] 4.1 K/CMM (05/03/15 6:06 AM) 4.1 K/CMM (04/29/15 3:47 AM) 6.0 K/CMM (04/28/15 4:08 AM) Segs-Bands # [1.5-8.1 K/CMM] 1.3 K/CMM (05/03/15 6:06 AM) 0.8 K/CMM *LOW* (04/29/15 3:47 AM) 1.1 K/CMM (04/28/15 4:08 AM) Lymphocytes # [1.0-5.5 K/CMM] 0.5 K/CMM (05/03/15 6:06 AM) 0.5 K/CMM (04/29/15 3:47 AM) 0.6 K/CMM (04/28/15 4:08 AM) Monocytes # [0.0-0.8 K/CMM] 0.3 K/CMM (05/03/15 6:06 AM) 0.2 K/CMM (04/29/15 3:47 AM) 0.1 K/CMM (04/28/15 4:08 AM) Eosinophils # [0.0-0.5 K/CMM] 0.1 K/CMM (05/03/15 6:06 AM) 0.1 K/CMM (04/27/15 4:25 AM) 0.1 K/CMM (04/26/15 10:38 AM) Basophils # [0.0-0.2 K/CMM] >100 mm/hr *ABN* (04/27/15 4:25 AM) Sed Rate [0-15 mm/hr] Immunizations Vaccine Date Refusal Reason Hx influenza vaccine-unspecified1 09/22/12 pneumococcal 23-valent vaccine 05/09/14 tetanus toxoid 02/01/13 1Admin Note: received at hospital Procedures Procedure Date Related Diagnosis Body Site Amputation great toe 04/02/13 Social History Social History Type Response Alcohol Current, Frequency: 1-2 times per week. Smoking Status Never smoker; Exposure to Tobacco Smoke None; Cigarette Smoking Last 365 Days No; Reg Smoking Cessation Counseling No Assessment and Plan Extracted from: Title: Patient Education: Fall Author: Linda Lee RN Date: 05/03/15 Prevention * Patient Education Fall Prevention Education Areas of [...]
--- OUTSIDE RECORDS SUMMARY | 2019-05-19 11:02 | XMS REPORT | Summary of Care ---
Author Author [facility] Organization [facility] Address Unknown Phone Unavailable [address]counter [address]([place]) [id number] Date(s): 02/21/16 - 02/25/16 [facility] [address] [place] [address]- [phone] Discharge Disposition: Assisted Care Attending Physician: Bairon Escobar MD Admitting Physician: Bairon Escobar MD Vital Signs 1 2 3 Most recent to oldest [Reference Range]: 165.1 cm (02/21/16 3:09 PM) 165.1 cm (02/21/16 6:24 AM) Height 98.2 DegF (02/25/16 4:31 PM) 98.5 DegF (02/25/16 11:45 AM) 98.6 DegF (02/25/16 8:47 AM) Temperature Oral [96.4-99.1 DegF] 151/87 mmHg *HI* (02/25/16 4:31 PM) 143/84 mmHg *HI* (02/25/16 11:45 AM) 155/88 mmHg *HI* (02/25/16 8:47 AM) Blood Pressure [90-140/60-90 mmHg] 19 BRMIN (02/25/16 4:31 PM) 18 BRMIN (02/25/16 11:45 AM) 17 BRMIN (02/25/16 8:47 AM) Respiratory Rate [14-20 BRMIN] 78 bpm (02/25/16 4:31 PM) 78 bpm (02/25/16 11:45 AM) 82 bpm (02/25/16 8:47 AM) Peripheral Pulse Rate [60-100 bpm] 93.295 kg (02/23/16 9:00 AM) 98.636 kg (02/21/16 3:09 PM) 98.636 kg (02/21/16 6:24 AM) Weight 36.19 m2 (02/21/16 3:09 PM) 36.19 m2 (02/21/16 6:24 AM) Body Mass Index Problem List Condition Effective Dates Status Health Status Informant Diabetes(Confirmed) Active MRSA(Confirmed)1, 2, 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 2MRSA from the abscess on the Right foot 3Problem added by Discern Expert. 4Problem added by Discern Expert. Allergies, Adverse Reactions, Alerts Substance Reaction Severity Status penicillins Active Medications *RN-Wait for VANC trough draw @ 01:30 on 02/25/16 *RN-Wait for VANC trough draw @ 01:30 on 02/25/16 , ATTN:RN, Drug form: MISC, Route: MISC, ONCE, 02/25/16 1:00:00 CDT, Stop date: 02/25/16 1:00:00 CDT Start Date: 02/25/16 Stop Date: 02/25/16 Status: Completed acetaminophen 325 mg oral tablet 650 mg, 2 tab, Route: PO, Drug form: TAB, Q6H, Dosing Weight 98.636, kg, PRN For Temp > 100.4 F, Start date: 02/21/16 17:05:00 CDT, Duration: 30 day, Stop date: 03/22/16 17:04:00 CDT, fever Notes: Do not exceed 4 gm/day. (Same as: Tylenol) Start Date: 02/21/16 Stop Date: 02/25/16 Status: Discontinued cefepime + Sodium Chloride 0.9% IV 100 mL 1 gm, Route: IVPB, ABXQ8H, Dosing Weight 98.636, kg, (CrCl >/=50 ml/min), Start date: 02/21/16 17:00:00 CDT, Duration: 30 day, Stop date: 03/22/16 9:00:00 CDT Notes: (Same As: Maxipime) MEDICATION WASTE Product Size: 1000 mgProduc t Wasted: ___ mg Start Date: 02/21/16 Stop Date: 02/25/16 Status: Discontinued cefepime 1 g injection 1 gm, IV, Q12H, X 10 day, # 10 bag, 0 Refill(s) Start Date: 02/25/16 Stop Date: 03/06/16 Status: Ordered clindamycin 600 mg, Route: IVPB, ABXQ8H, Dosing Weight 98.636, kg, Priority: STAT, Start jose g e: 02/21/16 14:30:00 CDT, Duration: 30 day, Stop date: 03/22/16 6:30:00 CDT Start Date: 02/21/16 Stop Date: 02/21/16 Status: Deleted clindamycin 600 mg, 50 mL, Route: IVPB, Drug form: INJ, ABXQ8H, Dosing Weight 98.636, kg, St art date: 02/21/16 21:00:00 CDT, Duration: 30 day, Stop date: 03/22/16 13:00:00 CDT Start Date: 02/21/16 Stop Date: 02/22/16 Status: Discontinued clindamycin 300 mg, PO, QID, 0 Refill(s) Start Date: 02/21/16 Stop Date: 02/21/16 Status: Deleted clindamycin 600 mg, 50 mL, Route: IVPB, Drug form: INJ, ONCE, Dosing Weight 98.636, kg, Prio rity: STAT, Start date: 02/21/16 11:01:00 CDT, Stop date: 02/21/16 11:01:00 CDT Start Date: 02/21/16 Stop Date: 02/21/16 Status: Completed Dextrose 50% Syringe 12.5 gm, 25 mL, Route: IVP, Drug Form: INJ, Dosing Weight 98.636, kg, PRN, PRN B lood Glucose Results, Start date: 02/21/16 17:07:00 CDT, Duration: 30 day, Stop date: 03/22/16 17:06:00 CDT Start Date: 02/21/16 Stop Date: 02/25/16 Status: Discontinued Dextrose 50% Syringe 25 gm, 50 mL, Route: IVP, Drug Form: INJ, Dosing Weight 98.636, kg, PRN, PRN Blo od Glucose Results, Start date: 02/21/16 17:07:00 CDT, Duration: 30 day, Stop da te: 03/22/16 17:06:00 CDT Start Date: 02/21/16 Stop Date: 02/25/16 Status: Discontinued Dextrose 50% Syringe 25 gm, 50 mL, Route: IVP, Drug Form: INJ, Dosing Weight 98.636, kg, PRN, PRN Blo od Glucose Results, Start date: 02/21/16 14:30:00 CDT, Duration: 30 day, Stop da te: 03/22/16 14:29:00 CDT Start Date: 02/21/16 Stop Date: 02/21/16 Status: Deleted Dextrose 50% Syringe 12.5 gm, 25 mL, Route: IVP, Drug Form: INJ, Dosing Weight 98.636, kg, PRN, PRN B lood Glucose Results, Start date: 02/21/16 14:30:00 CDT, Duration: 30 day, Stop date: 03/22/16 14:29:00 CDT Start Date: 02/21/16 Stop Date: 02/21/16 Status: Deleted glucagon 1 mg, Route: IM, Drug form: PDR/INJ, PRN, Dosing Weight 98.636, kg, PRN Blood Gl ucose Results, Start date: 02/21/16 17:07:00 CDT, Duration: 30 day, Stop date: 0 03/22/16 17:06:00 CDT Start Date: 02/21/16 Stop Date: 02/25/16 Status: Discontinued glucagon 1 mg, Route: IM, Drug form: PDR/INJ, PRN, Dosing Weight 98.636, kg, PRN Blood Gl ucose Results, Start date: 02/21/16 14:30:00 CDT, Duration: 30 day, Stop date: 0 03/22/16 14:29:00 CDT Start Date: 02/21/16 Stop Date: 02/21/16 Status: Deleted insulin aspart 4 unit, 0.04 mL, Route: SUB-Q, Drug form: SOLN, Bedtime, Dosing Weight 98.636, k g, PRN Blood Glucose Results, Start date: 02/21/16 17:07:00 CDT, Duration: 30 da y, Stop date: 03/22/16 17:06:00 CDT Notes: Roll in palms of hands gently; Do not shake vigorously. (Same as: NovoSRAVAN G)"single patient use only"WASTE: F/P - Black; E - Municipal Trash Bin Stable f or 28 days at room temperature.Expires in days from Date Start Date: 02/21/16 Stop Date: 02/25/16 Status: Discontinued insulin aspart 3 unit, 0.03 mL, Route: SUB-Q, Drug form: SOLN, Bedtime, Dosing Weight 98.636, k g, PRN Blood Glucose Results, Start date: 02/21/16 17:07:00 CDT, Duration: 30 da y, Stop date: 03/22/16 17:06:00 CDT Notes: Roll in palms of hands gently; Do not shake vigorously. (Same as: NovoSRAVAN G)"single patient use only"WASTE: F/P - Black; E - Municipal Trash Bin Stable f or 28 days at room temperature.Expires in days from Date Start Date: 02/21/16 Stop Date: 02/25/16 Status: Discontinued insulin aspart 2 unit, 0.02 mL, Route: SUB-Q, Drug form: SOLN, Bedtime, Dosing Weight 98.636, k g, PRN Blood Glucose Results, Start date: 02/21/16 17:07:00 CDT, Duration: 30 da y, Stop date: 03/22/16 17:06:00 CDT Notes: Roll in palms of hands gently; Do not shake vigorously. (Same as: NovoSRAVAN G)"single patient use only"WASTE: F/P - Black; E - Municipal Trash Bin Stable f or 28 days at room temperature.Expires in days from Date Start Date: 02/21/16 Stop Date: 02/25/16 Status: Discontinued insulin aspart 1 unit, 0.01 mL, Route: SUB-Q, Drug form: SOLN, Bedtime, Dosing Weight 98.636, k g, PRN Blood Glucose Results, Start date: 02/21/16 17:07:00 CDT, Duration: 30 da y, Stop date: 03/22/16 17:06:00 CDT Notes: Roll in palms of hands gently; Do not shake vigorously. (Same as: Lilian Syed)"single patient use only"WASTE: F/P - Black; E - Municipal Trash Bin Stable f or 28 days at room temperature.Expires in days from Date Start Date: 02/21/16 Stop Date: 02/25/16 Status: Discontinued insulin aspart 12 unit, 0.12 mL, Route: SUB-Q, Drug form: SOLN, TID-Before Meals, Dosing Weight 98.636, kg, PRN Blood Glucose Results, Start date: 02/21/16 17:07:00 CDT, Durat ion: 30 day, Stop date: 03/22/16 17:06:00 CDT Notes: Roll in palms of hands gently; Do not shake vigorously. (Same as: Lilian Syed)"single patient use only"WASTE: F/P - Black; E - Municipal Trash Bin Stable f or 28 days at room temperature.Expires in days from Date Start Date: 02/21/16 Stop Date: 02/25/16 Status: Discontinued insulin aspart 9 unit, 0.09 mL, Route: SUB-Q, Drug form: SOLN, TID-Before Meals, Dosing Weight 98.636, kg, PRN Blood Glucose Results, Start date: 02/21/16 17:07:00 CDT, Durati on: 30 day, Stop date: 03/22/16 17:06:00 CDT Notes: Roll in palms of hands gently; Do not shake vigorously. (Same as: Lilian Syed)"single patient use only"WASTE: F/P - Black; E - Municipal Trash Bin Stable f or 28 days at room temperature.Expires in days from Date Start Date: 02/21/16 Stop Date: 02/25/16 Status: Discontinued insulin aspart 6 unit, 0.06 mL, Route: SUB-Q, Drug form: SOLN, TID-Before Meals, Dosing Weight 98.636, kg, PRN Blood Glucose Results, Start date: 02/21/16 17:07:00 CDT, Durati on: 30 day, Stop date: 03/22/16 17:06:00 CDT Notes: Roll in palms of hands gently; Do not shake vigorously. (Same as: NovoSRAVAN Syed)"single patient use only"WASTE: F/P - Black; E - Municipal Trash Bin Stable f or 28 days at room temperature.Expires in days from Date Start Date: 02/21/16 Stop Date: 02/25/16 Status: Discontinued insulin aspart 3 unit, 0.03 mL, Route: SUB-Q, Drug form: SOLN, TID-Before Meals, Dosing Weight 98.636, kg, PRN Blood Glucose Results, Start date: 02/21/16 17:07:00 CDT, Durati on: 30 day, Stop date: 03/22/16 17:06:00 CDT Notes: Roll in palms of hands gently; Do not shake vigorously. (Same as: NovoSRAVAN Syed)"single patient use only"WASTE: F/P - Black; E - Municipal Trash Bin Stable f or 28 days at room temperature.Expires in days from Date Start Date: 02/21/16 Stop Date: 02/25/16 Status: Discontinued insulin aspart 15 unit, 0.15 mL, Route: SUB-Q, Drug form: SOLN, TID-Before Meals, Dosing Weight 98.636, kg, PRN Blood Glucose Results, Start date: 02/21/16 17:07:00 CDT, Durat ion: 30 day, Stop date: 03/22/16 17:06:00 CDT Notes: Roll in palms of hands gently; Do not shake vigorously. (Same as: NovoSRAVAN G)"single patient use only"WASTE: F/P - Black; E - Municipal Trash Bin Stable f or 28 days at room temperature.Expires in days from Date Start Date: 02/21/16 Stop Date: 02/25/16 Status: Discontinued insulin aspart 8 unit, 0.08 mL, Route: SUB-Q, Drug form: SOLN, TID-Before Meals, Dosing Weight 98.636, kg, PRN Blood Glucose Results, Start date: 02/21/16 14:30:00 CDT, Durati on: 30 day, Stop date: 03/22/16 14:29:00 CDT Notes: Roll in palms of hands gently; Do not shake vigorously. (Same as: Lilian Syed)"single patient use only"WASTE: F/P - Black; E - Municipal Trash Bin Stable f or 28 days at room temperature.Expires in days from Date Start Date: 02/21/16 Stop Date: 02/21/16 Status: Discontinued insulin aspart 6 unit, 0.06 mL, Route: SUB-Q, Drug form: SOLN, TID-Before Meals, Dosing Weight 98.636, kg, PRN Blood Glucose Results, Start date: 02/21/16 14:30:00 CDT, Durati on: 30 day, Stop date: 03/22/16 14:29:00 CDT Notes: Roll in palms of hands gently; Do not shake vigorously. (Same as: Lilian Syed)"single patient use only"WASTE: F/P - Black; E - Municipal Trash Bin Stable f or 28 days at room temperature.Expires in days from Date Start Date: 02/21/16 Stop Date: 02/21/16 Status: Discontinued insulin aspart 10 unit, 0.1 mL, Route: SUB-Q, Drug form: SOLN, TID-Before Meals, Dosing Weight 98.636, kg, PRN Blood Glucose Results, Start date: 02/21/16 14:30:00 CDT, Durati on: 30 day, Stop date: 03/22/16 14:29:00 CDT Notes: Roll in palms of hands gently; Do not shake vigorously. (Same as: Lilian Syed)"single patient use only"WASTE: F/P - Black; E - Municipal Trash Bin Stable f or 28 days at room temperature.Expires in days from Date Start Date: 02/21/16 Stop Date: 02/21/16 Status: Discontinued insulin aspart 4 unit, 0.04 mL, Route: SUB-Q, Drug form: SOLN, TID-Before Meals, Dosing Weight 98.636, kg, PRN Blood Glucose Results, Start date: 02/21/16 14:30:00 CDT, Durati on: 30 day, Stop date: 03/22/16 14:29:00 CDT Notes: Roll in palms of hands gently; Do not shake vigorously. (Same as: Lilian Syed)"single patient use only"WASTE: F/P - Black; E - Municipal Trash Bin Stable f or 28 days at room temperature.Expires in days from Date Start Date: 02/21/16 Stop Date: 02/21/16 Status: Discontinued insulin aspart 2 unit, 0.02 mL, Route: SUB-Q, Drug form: SOLN, TID-Before Meals, Dosing Weight 98.636, kg, PRN Blood Glucose Results, Start date: 02/21/16 14:30:00 CDT, Durati on: 30 day, Stop date: 03/22/16 14:29:00 CDT Notes: Roll in palms of hands gently; Do not shake vigorously. (Same as: Lilian Syed)"single patient use only"WASTE: F/P - Black; E - Municipal Trash Bin Stable f or 28 days at room temperature.Expires in days from Date Start Date: 02/21/16 Stop Date: 02/21/16 Status: Discontinued insulin detemir 30 unit, 0.3 mL, Route: SUB-Q, Drug form: INJ, BID, Dosing Weight 98.636, kg, St art date: 02/22/16 21:00:00 CDT, Duration: 30 day, Stop date: 03/23/16 9:00:00 C DT Notes: Same as Joe not hold insulin without contacting prescriberWASTE: F/ P - Black; E - Municipal Trash Bin "single patient use only" Start Date: 02/22/16 Stop Date: 02/25/16 Status: Discontinued insulin detemir 30 unit, 0.3 mL, Route: SUB-Q, Drug form: INJ, Bedtime, Dosing Weight 98.636, kg , Start date: 02/21/16 21:00:00 CDT, Duration: 30 day, Stop date: 03/21/16 21:00 :00 CDT Notes: Same as LevemirDo not hold insulin without contacting prescriberWASTE: F/ P - Black; E - Municipal Trash Bin "single patient use only" Start Date: 02/21/16 Stop Date: 02/22/16 Status: Discontinued insulin detemir 100 units/mL subcutaneous solution 30 unit, SUB-Q, BID, 0 Refill(s) Start Date: 02/25/16 Status: Ordered lidocaine 1% 5 mL, Route: INTRADERM, Drug Form: INJ, Dosing Weight 93.295, kg, ONCALL, Start date: 02/24/16 15:00:00 CDT, Duration: 30 day, Stop date: 03/25/16 14:59:00 CDT Notes: Preservative free. (Same as: Xylocaine MPF) Start Date: 02/24/16 Stop Date: 02/25/16 Status: Discontinued metFORMIN 500 mg, PO, BID, 0 Refill(s) Start Date: 02/21/16 Status: Ordered metFORMIN 500 mg, 1 tab, Route: PO, Drug form: TAB, BID, Dosing Weight 98.636, kg, Start d ate: 02/22/16 9:00:00 CDT, Duration: 30 day, Stop date: 03/22/16 17:00:00 CDT Notes: (Same as: Glucophage) Take with meal Start Date: 02/22/16 Stop Date: 02/25/16 Status: Discontinued metroNIDAZOLE 500 mg, 100 mL, Route: IVPB, Drug form: INJ, ABXQ8H, Dosing Weight 98.636, kg, S tart date: 02/21/16 17:00:00 CDT, Duration: 30 day, Stop date: 03/22/16 13:00:00 CDT Notes: (Same as: Flagyl) Avoid alcohol. Start Date: 02/21/16 Stop Date: 02/25/16 Status: Discontinued metroNIDAZOLE intravenous solution 500 do=852 mL, IVPB, ABXQ8H, 0 Refill(s) Start Date: 02/25/16 Status: Ordered morphine Sulfate 2 mg, 1 mL, Route: IVP, Drug form: INJ, Q4H, Dosing Weight 98.636, kg, PRN Pain Score 7-10, Start date: 02/21/16 17:42:00 CDT, Duration: 30 day, Stop date: 03/12 11/27 17:41:00 CDT Notes: (Same as:MORPhine Sulfate) Start Date: 02/21/16 Stop Date: 02/25/16 Status: Discontinued morphine Sulfate 4 mg, 2 mL, Route: IVP, Drug form: INJ, ONCE, Dosing Weight 98.636, kg, Priority : STAT, Start date: 02/21/16 7:20:00 CDT, Stop date: 02/21/16 7:20:00 CDT Notes: (Same as:MORPhine Sulfate) Start Date: 02/21/16 Stop Date: 02/21/16 Status: Completed [place] 10/325 oral tablet 1 tab, Route: PO, Drug Form: TAB, Dosing Weight 98.636, kg, Q4H, PRN Pain Score 1-3, Start date: 02/21/16 17:05:00 CDT, Duration: 30 day, Stop date: 03/22/16 17 :04:00 CDT Notes: Do not exceed 4gm/day of acetaminophen. (Same as: [place] 325/10) Start Date: 02/21/16 Stop Date: 02/25/16 Status: Discontinued ondansetron 4 mg, 2 mL, Route: IVP, Drug form: INJ, ONCE, Dosing Weight 98.636, kg, Priority : STAT, Start date: 02/21/16 7:20:00 CDT, Stop date: 02/21/16 7:20:00 CDT Notes: (Same as: Zofran) MEDICATION WASTE Product Size: 4 mgProduct Was sonia: ___ mg Start Date: 02/21/16 Stop Date: 02/21/16 Status: Completed Please do not give Vanco prior to trough is collected Please do not give Vanco prior to trough is collected, Reminder, Drug form: MISC , Route: MISC, ONCE, 02/22/16 21:00:00 CDT, Stop date: 02/22/16 21:00:00 CDT Start Date: 02/22/16 Stop Date: 02/22/16 Status: Completed potassium chloride 40 mEq, 2 tab, Route: PO, Drug form: ERTAB, ONCE, Dosing Weight 93.295, kg, Star t date: 02/25/16 8:52:00 CDT, Stop date: 02/25/16 8:52:00 CDT Notes: (Same as: K-Dur 20)"Do Not Crush" With food and full glass of water Start Date: 02/25/16 Stop Date: 02/25/16 Status: Completed Saline Flush 0.9% 10 mL, Route: IVP, Drug Form: INJ, Dosing Weight 93.295, kg, PRN, PRN Line Flush , Start date: 02/24/16 14:23:00 CDT, Duration: 30 day, Stop date: 03/25/16 14:22 :00 CDT Notes: (Same as: BD Posiflush) Start Date: 02/24/16 Stop Date: 02/25/16 Status: Discontinued Saline Flush 0.9% 10 mL, Route: IVP, Drug Form: INJ, Dosing Weight 93.295, kg, Q8H, Start date: 16:00:00 CDT, Duration: 30 day, Stop date: 03/25/16 8:00:00 CDT Notes: (Same as: BD Posiflush) Start Date: 02/24/16 Stop Date: 02/25/16 Status: Discontinued Sodium Chloride 0.9% (Bolus) IV 1,000 mL, 1,000 ml/hr, Infuse Over: 1 hr, Route: IV, 1,000, Drug form: INJ, ONCE , Priority: STAT, Dosing Weight 98.636 kg, Start date: 02/21/16 7:20:00 CDT, Dur ation: 1 doses or times, Stop date: 02/21/16 7:20:00 CDT Start Date: 02/21/16 Stop Date: 02/21/16 Status: Completed sulfamethoxazole-trimethoprim DS 800 mg-160 mg oral tablet 1 tab, PO, BID, 0 Refill(s) Start Date: 02/21/16 Stop Date: 02/25/16 Status: Discontinued vancomycin 1.5 gm, 250 mL, Route: IVPB, Drug form: INJ, [id number], Dosing Weight 98.636, kg, Start date: 02/23/16 10:30:00 CDT, Duration: 30 day, Stop date: 03/24/16 2:00:00 CDT Notes: TIME CRITICAL MEDICATIONSame as: Vancocin-NS (premixed)Infusion rate< 1000 mg: infuse over 1 [id number] - 1500 mg: infuse over 1.5 [id number] - 2000 mg: infuse over 2 hours> 2001 mg: infuse over 2.5 hours Start Date: 02/23/16 Stop Date: 02/25/16 Status: Discontinued vancomycin + Sodium Chloride 0.9% IV 250 mL 1 gm, Route: IVPB, ONCE, Dosing Weight 98.636, kg, Priority: STAT, Start date: 0 02/21/16 7:20:00 CDT, Stop date: 02/21/16 7:20:00 CDT, TIME CRITICAL MEDICATION Notes: TIME CRITICAL MEDICATION(Same As: Vancocin)Infusion rate< 1000 mg: infuse over 1 [id number] - 1500 mg: infuse over 1.5 [id number] - 2000 mg: infuse over 2 hours> 2001 mg: infuse over 2.5 hours MEDICATION WASTE Product Size: 1000 mgProduct Wasted: ___ mg Start Date: 02/21/16 Stop Date: 02/21/16 Status: Completed vancomycin 1.5 g/250 mL-NaCl 0.9% intravenous solution 1.5 vu=441 mL, IVPB, [id number], 0 Refill(s) Start Date: 02/25/16 Status: Ordered Vancomycin Pharmacy Dosing + Sodium Chloride 0.9% IV 250 mL 1 gm, 250 ml/hr, Route: IV, Dosing Weight 98.636, kg, [id number], Start date: 02/20 21:00:00 CDT, Duration: 14 day, Stop date: 03/06/16 10:00:00 CDT, Pharmacy t o dose Notes: TIME CRITICAL MEDICATION(Same As: Vancocin)Infusion rate< 1000 mg: infuse over 1 [id number] - 1500 mg: infuse over 1.5 [id number] - 2000 mg: infuse over 2 hours> 2001 mg: infuse over 2.5 hours MEDICATION WASTE Product Size: 1000 mgProduct Wasted: ___ mg Start Date: 02/21/16 Stop Date: 02/23/16 Status: Discontinued Results ELECTROLYTES 1 2 3 Most recent to oldest [Reference Range]: 133 mEq/L *LOW* (02/25/16 2:03 AM) 132 mEq/L *LOW* (02/22/16 5:10 AM) 127 mEq/L *LOW* (02/21/16 7:53 AM) Sodium Lvl [135-145 mEq/L] 3.4 mEq/L *LOW* (02/25/16 2:03 AM) 3.6 mEq/L (02/22/16 5:10 AM) 3.8 mEq/L (02/21/16 7:53 AM) Potassium Lvl [3.5-5.1 mEq/L] 96 mEq/L (02/25/16 2:03 AM) 97 mEq/L (02/22/16 5:10 AM) 93 mEq/L *LOW* (02/21/16 7:53 AM) Chloride Lvl [95-109 mEq/L] 30 mEq/L (02/25/16 2:03 AM) 29 mEq/L (02/22/16 5:10 AM) 27 mEq/L (02/21/16 7:53 AM) CO2 [24-32 mEq/L] 10.4 mEq/L (02/25/16 2:03 AM) 9.6 mEq/L *LOW* (02/22/16 5:10 AM) 10.8 mEq/L (02/21/16 7:53 AM) AGAP [10.0-20.0 mEq/L] CHEM PANEL 1 2 3 Most recent to oldest [Reference Range]: 0.59 mg/dL (02/25/16 2:03 AM) 0.73 mg/dL (02/22/16 5:10 AM) 0.99 mg/dL (02/21/16 7:53 AM) Creatinine Lvl [0.50-1.40 mg/dL] 117 mL/min/1.73m2 1 *NA* (02/25/16 2:03 AM) 108 mL/min/1.73m2 2 *NA* (02/22/16 5:10 AM) 88 mL/min/1.73m2 3 *NA* (02/21/16 7:53 AM) eGFR 17 mg/dL (02/25/16 2:03 AM) 10 mg/dL (02/22/16 5:10 AM) 13 mg/dL (02/21/16 7:53 AM) BUN [7-22 mg/dL] 14 (02/22/16 5:10 AM) B/C Ratio [6-25] 94 mg/dL (02/25/16 2:03 AM) 256 mg/dL *HI* (02/22/16 5:10 AM) 373 mg/dL *HI* (02/21/16 7:53 AM) Glucose Lvl [70-99 mg/dL] 7.8 g/dL (02/22/16 5:10 AM) Total Protein [6.4-8.4 g/dL] 2.0 g/dL *LOW* (02/22/16 5:10 AM) Albumin Lvl [3.5-5.0 g/dL] 5.8 g/dL *HI* (02/22/16 5:10 AM) Globulin [2.0-4.0 g/dL] 0.3 *LOW* (02/22/16 5:10 AM) A/G Ratio [0.7-1.6] 8.0 mg/dL *LOW* (02/25/16 2:03 AM) 8.3 mg/dL *LOW* (02/22/16 5:10 AM) 8.4 mg/dL *LOW* (02/21/16 7:53 AM) Calcium Lvl [8.5-10.5 mg/dL] 11 unit/L (02/22/16 5:10 AM) ALT [0-65 unit/L] 12 unit/L (02/22/16 5:10 AM) AST [0-37 unit/L] 92 unit/L (02/22/16 5:10 AM) Alk Phos [39-136 unit/L] 0.7 mg/dL (02/22/16 5:10 AM) Bili Total [0.2-1.3 mg/dL] 1.3 mMol/L (02/21/16 7:53 AM) Lactic Acid Lvl [0.5-2.2 mMol/L] 1Result Comment: The eGFR is calculated using [...] be mul tiplied by the estimated BMI. SPECIAL CHEMISTRY 1 2 3 Most recent to oldest [Reference Range]: 11.5 % *HI* (02/22/16 5:10 AM) Hgb A1C [<=5.6 %] TOXICOLOGY 1 2 3 Most recent to oldest [Reference Range]: 0 *NA* (02/25/16 2:03 AM) 2200 *NA* (02/23/16 5:09 AM) Vanco Tr TND 17.2 ug/ml *NA* (02/25/16 2:03 AM) 9.9 ug/ml *NA* (02/23/16 5:09 AM) Vanco Tr URINE AND STOOL 1 2 3 Most recent to oldest [Reference Range]: Clear (02/21/16 11:40 AM) UA Turbidity [Clear] Yellow *NA* (02/21/16 11:40 AM) UA Color [Yellow] 5.5 (02/21/16 11:40 AM) UA pH [5.0-8.0] >=1.030 *ABN* (02/21/16 11:40 AM) UA Spec Grav [<=1.030] >=1000 mg/dL *ABN* (02/21/16 11:40 AM) UA Glucose [Negative mg/dL] Large *ABN* (02/21/16 11:40 AM) UA Blood [Negative] Trace *ABN* (02/21/16 11:40 AM) UA Ketones [Negative] Trace *ABN* (02/21/16 11:40 AM) UA Protein [Negative] 0.2 EU/dL (02/21/16 11:40 AM) UA Urobilinogen [0.1-1.0 EU/dL] Negative *NA* (02/21/16 11:40 AM) UA Bili [Negative] Negative (02/21/16 11:40 AM) UA Leuk Est [Negative] Negative (02/21/16 11:40 AM) UA Nitrite [Negative] 3-5 /HPF (02/21/16 11:40 AM) UA WBC [0-5 /HPF] 3-5 /HPF *ABN* (02/21/16 11:40 AM) UA RBC [0-2 /HPF] Occasional /HPF (02/21/16 11:40 AM) UA Bacteria [None Seen /HPF] Moderate /LPF *ABN* (02/21/16 11:40 AM) UA Sq Epi [Few /LPF] IMMUNOLOGY 1 2 3 Most recent to oldest [Reference Range]: 155.0 mg/L *HI* (02/22/16 5:10 AM) CRP [<=2.9 mg/L] HEMATOLOGY 1 2 3 Most recent to oldest [Reference Range]: 7.8 K/CMM (02/25/16 2:03 AM) 5.2 K/CMM (02/22/16 5:10 AM) 7.1 K/CMM (02/21/16 7:53 AM) WBC [3.7-10.4 K/CMM] 3.83 M/CMM *LOW* (02/25/16 2:03 AM) 3.60 M/CMM *LOW* (02/22/16 5:10 AM) 3.46 M/CMM *LOW* (02/21/16 7:53 AM) RBC [4.70-6.10 M/CMM] 10.8 g/dL *LOW* (02/25/16 2:03 AM) 10.0 g/dL *LOW* (02/22/16 5:10 AM) 9.7 g/dL *LOW* (02/21/16 7:53 AM) Hgb [14.0-18.0 g/dL] 32.0 % *LOW* (02/25/16 2:03 AM) 30.3 % *LOW* (02/22/16 5:10 AM) 29.3 % *LOW* (02/21/16 7:53 AM) Hct [42.0-54.0 %] 83.6 fL (02/25/16 2:03 AM) 84.1 fL (02/22/16 5:10 AM) 84.6 fL (02/21/16 7:53 AM) MCV [80.0-94.0 fL] 28.1 pg (02/25/16 2:03 AM) 27.9 pg (02/22/16 5:10 AM) 27.9 pg (02/21/16 7:53 AM) MCH [27.0-31.0 pg] 33.6 g/dL (02/25/16 2:03 AM) 33.2 g/dL (02/22/16 5:10 AM) 33.0 g/dL (02/21/16 7:53 AM) MCHC [32.0-36.0 g/dL] 15.0 % *HI* (02/25/16 2:03 AM) 14.9 % *HI* (02/22/16 5:10 AM) 14.8 % *HI* (02/21/16 7:53 AM) RDW [11.5-14.5 %] 218 K/CMM (02/25/16 2:03 AM) 178 K/CMM (02/22/16 5:10 AM) 180 K/CMM (02/21/16 7:53 AM) Platelet [133-450 K/CMM] 8.7 fL (02/25/16 2:03 AM) 8.9 fL (02/22/16 5:10 AM) 9.7 fL (02/21/16 7:53 AM) MPV [7.4-10.4 fL] 71.9 % (02/25/16 2:03 AM) 64.7 % (02/22/16 5:10 AM) 73.1 % (02/21/16 7:53 AM) Segs [45.0-75.0 %] 17.0 % *LOW* (02/25/16 2:03 AM) 22.1 % (02/22/16 5:10 AM) 15.8 % *LOW* (02/21/16 7:53 AM) Lymphocytes [20.0-40.0 %] 7.3 % (02/25/16 2:03 AM) 9.8 % (02/22/16 5:10 AM) 8.8 % (02/21/16 7:53 AM) Monocytes [2.0-12.0 %] 3.0 % (02/25/16 2:03 AM) 2.5 % (02/22/16 5:10 AM) 1.2 % (02/21/16 7:53 AM) Eosinophils [0.0-4.0 %] 0.8 % (02/25/16 2:03 AM) 0.9 % (02/22/16 5:10 AM) 1.1 % *HI* (02/21/16 7:53 AM) Basophils [0.0-1.0 %] 5.6 K/CMM (02/25/16 2:03 AM) 3.4 K/CMM (02/22/16 5:10 AM) 5.2 K/CMM (02/21/16 7:53 AM) Segs-Bands # [1.5-8.1 K/CMM] 1.3 K/CMM (02/25/16 2:03 AM) 1.2 K/CMM (02/22/16 5:10 AM) 1.1 K/CMM (02/21/16 7:53 AM) Lymphocytes # [1.0-5.5 K/CMM] 0.6 K/CMM (02/25/16 2:03 AM) 0.5 K/CMM (02/22/16 5:10 AM) 0.6 K/CMM (02/21/16 7:53 AM) Monocytes # [0.0-0.8 K/CMM] 0.2 K/CMM (02/25/16 2:03 AM) 0.1 K/CMM (02/22/16 5:10 AM) 0.1 K/CMM (02/21/16 7:53 AM) Eosinophils # [0.0-0.5 K/CMM] 0.1 K/CMM (02/25/16 2:03 AM) 0.1 K/CMM (02/21/16 7:53 AM) Basophils # [0.0-0.2 K/CMM] >100 mm/hr *ABN* (02/22/16 5:10 AM) Sed Rate [0-15 mm/hr] 15.6 seconds *HI* (02/21/16 7:53 AM) PT [12.0-14.7 seconds] 1.21 *HI* (02/21/16 7:53 AM) INR [0.85-1.17] 39.8 seconds *HI* (02/21/16 7:53 AM) PTT [22.9-35.8 seconds] BACTERIAL - SEROLOGY 1 2 3 Most recent to oldest [Reference Range]: Negative (02/25/16 12:10 AM) MRSA by PCR Immunizations Vaccine Date Refusal Reason Hx influenza vaccine-unspecified1 09/22/12 pneumococcal 23-valent vaccine 05/09/14 tetanus toxoid 02/01/13 1Admin Note: received at hospital Procedures Procedure Date Related Diagnosis Body Site Amputation great toe 04/02/13 Amputation of the foot Amputation of toe Social History Social History Type Response Alcohol Past, Frequency: 1-2 times per week. Smoking Status Former smoker; Exposure to Tobacco Smoke None; Cigarette Smoking Last 365 Days No; Reg Smoking Cessation Counseling No Assessment and Plan Extracted from: Title: Clinical Document Author: Maura Urban MD Date: 02/25/[address] [facility] INFECTIOUS DISEASES PROGRESS NOTE Ashwin KRAUSE M.D. SYED W. HASAN, M.D. RFC: RLE Osteomyelitis SUBJECTIVE: INTERVAL HISTORY: Resting in bed on abx. ROS: Shoulder pain PMFH: Reviewed OBJECTIVE: PHYSICAL EXAMINATION: VitalsTmp(F)[id number] 02/24 08:[id number]--- 02/24 04:[id number]/055009--- 02/23 23:[id number]--- 02/23 19:[id number]--- 02/23 15:[id number]--- 24 Hr Tmax: 98.9F (37.17c) at 02/23 23:55Vital Signs are the last 5 in the [...] IVP Q8H 02/23/16 vancomycin 1.5 gm IVPB [id number] 166.67 ml/hr Allergies (1) ActiveReaction penicillinsNone documented LABORATORY (Reviewed): Labs (Last four charted values) WBC 7.8(FEB 24)5.2(FEB 21)7.1(FEB 20) Hgb L 10.8(FEB 24)L 10.0(FEB 21)L 9.7(FEB 20) Hct L 32.0(FEB 24)L 30.3(FEB 21)L 29.3(FEB 20) Plt 218(FEB 15)178(FEB 12)180(FEB 11) Na L 133(FEB 15)L 132(FEB 12)L 127(FEB 11) K L 3.4(FEB 15)3.6(FEB 21)3.8(FEB 20) CO2 30(FEB 15)29(FEB 12)27(FEB 11) Cl 96(FEB 15)97(FEB 12)L 93(FEB 11) Cr 0.59(FEB 15)0.73(FEB 21)0.99(FEB 20) BUN 17(FEB 15)10(FEB 12)13(FEB 11) Glucose Random 94(FEB 15)H 256(FEB 12)H 373(FEB 11) Ca L 8.0(FEB 15)L 8.3(FEB 12)L 8.4(FEB 20) PT H 15.6(FEB 20) INR H 1.21(FEB 20) PTT H 39.8(FEB 20) Alk Phos: 92 unit/L (02/22/16 06:05:24) [...]
--- OUTSIDE RECORDS SUMMARY | 2019-05-19 11:03 | XMS REPORT | Summary of Care ---
Author Author [facility] Organization [facility] Address Unknown Phone Unavailable [address]counter [address]([place]) [id number] Date(s): 09/15/16 - 09/20/16 [facility] [address] [place] [address]- Discharge Disposition: Home or Self Care Attending Physician: Mikaela Muro MD Admitting Physician: Mikaela Muro MD Vital Signs 1 2 3 Most recent to oldest [Reference Range]: 170.18 cm (09/15/16 5:30 AM) 170.18 cm (09/15/16 12:06 AM) Height 111.506 kg (09/20/16 6:26 AM) 112.045 kg (09/19/16 6:24 AM) 116 kg (09/18/16 4:55 AM) Current Weight 97.9 DegF (09/20/16 4:00 PM) 98.1 DegF (09/20/16 11:52 AM) 97.7 DegF (09/20/16 8:00 AM) Temperature Oral [96.4-99.1 DegF] 148/83 mmHg *HI* (09/20/16 4:00 PM) 162/89 mmHg *HI* (09/20/16 11:52 AM) 153/83 mmHg *HI* (09/20/16 8:00 AM) Blood Pressure [90-140/60-90 mmHg] 17 BRMIN (09/20/16 4:00 PM) 17 BRMIN (09/20/16 11:52 AM) 17 BRMIN (09/20/16 8:00 AM) Respiratory Rate [14-20 BRMIN] 75 bpm (09/20/16 4:00 PM) 67 bpm (09/20/16 11:52 AM) 64 bpm (09/20/16 8:00 AM) Peripheral Pulse Rate [60-100 bpm] 115 kg (09/15/16 5:30 AM) 111.364 kg (09/15/16 12:06 AM) Weight 39.71 m2 (09/15/16 5:30 AM) 38.45 m2 (09/15/16 12:06 AM) Body Mass Index Problem List Condition Effective Dates Status Health Status Informant Diabetes(Confirmed) Active Hypertension(Confirm Resolved ed) MRSA(Confirmed)1, 2, 3 Active 3 Pseudomonas(Confirme Active d)4 28/07/14 ongoing ulceration of a right foot wound. 2MRSA from the abscess on the Right foot 3Problem added by Discern Expert. 4Problem added by Discern Expert. Allergies, Adverse Reactions, Alerts Substance Reaction Severity Status penicillins Active Medications Acura Blood Glucose Test Strips 1 ea, MISC, TID, Use for blood glucose monitoring., # 100 ea, Insulin dependent, Does not use insulin pump, Last DM eval date 09/20/16, 11 Refill(s) Start Date: 09/20/16 Stop Date: 09/17/28 Status: Ordered amLODIPine 5 mg, 1 tab, Route: PO, Drug form: TAB, Daily, Dosing Weight 115, kg, Start date : 09/20/16 9:00:00 DIESEL ENGINE ASSEMBLER, Duration: 30 day, Stop date: 10/19/16 9:00:00 DIESEL ENGINE ASSEMBLER Notes: (Same as: Denzelvasanish) Start Date: 09/20/16 Stop Date: 09/20/16 Status: Discontinued amLODIPine 10 mg oral tablet 10 mg=1 tab, PO, Daily, # 90 tab, 3 Refill(s) Start Date: 09/20/16 Status: Ordered atropine 0.5 mg, 5 mL, Route: IVP, Drug form: INJ, ONCE, Dosing Weight 115, kg, PRN Temo cardia, Start date: 09/16/16 0:13:00 CDT, Symptomatic bradycardia with a rate of <40/minute Start Date: 09/16/16 Stop Date: 09/20/16 Status: Discontinued aztreonam + sodium chloride 0.9% INJ 100 mL 1 gm, Route: IV, ONCE, Dosing Weight 111.364, kg, Start date: 09/15/16 2:29:00 C DT, Stop date: 09/15/16 2:29:00 CDT Notes: (Same As: Azactam) Start Date: 09/15/16 Stop Date: 09/15/16 Status: Completed calcium gluconate + sodium chloride 0.9% INJ 50 mL 1,000 mg, 10 mL, Route: IVPB, ONCE, Dosing Weight 111.364, kg, Start date: 09/15 7:28:00 CDT, Stop date: 09/15/16 7:28:00 CDT Notes: WASTE: F/P - Sink; E - Municipal Trash Bin Start Date: 09/15/16 Stop Date: 09/15/16 Status: Completed ceFAZolin 2 gm, 100 mL, Route: IVPB, Drug form: INJ, [id number], Dosing Weight 115, kg, Start date: 09/16/16 18:00:00 CDT, Duration: 30 day, Stop date: 10/16/16 14:00:00 DIESEL ENGINE ASSEMBLER Notes: Same as: Ancef Start Date: 09/16/16 Stop Date: 09/20/16 Status: Discontinued ciprofloxacin 400 mg, 200 mL, Route: IVPB, Drug form: INJ, [id number], Dosing Weight 115, kg, Sta rt date: 09/19/16 16:00:00 DIESEL ENGINE ASSEMBLER, Duration: 30 day, Stop date: 10/19/16 4:00:00 CS T Notes: Do not refrigerate Start Date: 09/19/16 Stop Date: 09/20/16 Status: Discontinued ciprofloxacin 100 mg oral tablet 400 mg, PO, Q12H, for UTI, X 30 day, # 240 tab, 0 Refill(s) Start Date: 09/20/16 Stop Date: 10/20/16 Status: Ordered Dextrose 50% Syringe 12.5 gm, 25 mL, Route: IVP, Drug Form: INJ, Dosing Weight 111.364, kg, PRN, PRN Blood Glucose Results, Start date: 09/15/16 4:50:00 CDT, Duration: 30 day, Stop date: 10/15/16 3:49:00 DIESEL ENGINE ASSEMBLER Start Date: 09/15/16 Stop Date: 09/20/16 Status: Discontinued Dextrose 50% Syringe 25 gm, 50 mL, Route: IVP, Drug Form: INJ, Dosing Weight 111.364, kg, PRN, PRN Bl ood Glucose Results, Start date: 09/15/16 4:50:00 CDT, Duration: 30 day, Stop da te: 10/15/16 3:49:00 DIESEL ENGINE ASSEMBLER Start Date: 09/15/16 Stop Date: 09/20/16 Status: Discontinued Dextrose 50% Syringe 12.5 gm, 25 mL, Route: IVP, Drug Form: INJ, Dosing Weight 111.364, kg, PRN, PRN Blood Glucose Results, Start date: 09/15/16 1:41:00 CDT, Duration: 30 day, Stop date: 10/15/16 0:40:00 DIESEL ENGINE ASSEMBLER Start Date: 09/15/16 Stop Date: 09/15/16 Status: Discontinued Dextrose 50% Syringe 25 gm, 50 mL, Route: IVP, Drug Form: INJ, Dosing Weight 111.364, kg, PRN, PRN Bl ood Glucose Results, Start date: 09/15/16 1:41:00 CDT, Duration: 30 day, Stop da te: 10/15/16 0:40:00 DIESEL ENGINE ASSEMBLER Start Date: 09/15/16 Stop Date: 09/15/16 Status: Discontinued docusate 100 mg, 1 cap, Route: PO, Drug form: CAP, BID, Dosing Weight 111.364, kg, PRN Co nstipation, Start date: 09/15/16 4:32:00 CDT, Duration: 30 day, Stop date: 10/15 4:31:00 DIESEL ENGINE ASSEMBLER Notes: (Same as: Colace) (Do Not Crush) Start Date: 09/15/16 Stop Date: 09/20/16 Status: Discontinued Flagyl 500 mg, 1 tab, Route: PO, Drug form: TAB, TID, Dosing Weight 115, kg, Start date : 09/20/16 9:00:00 DIESEL ENGINE ASSEMBLER, Stop date: 10/04/16 9:00:00 DIESEL ENGINE ASSEMBLER Notes: (Same as: Flagyl) Take with food/ avoid alcohol Start Date: 09/20/16 Stop Date: 09/20/16 Status: Discontinued glucagon 1 mg, Route: IM, Drug form: PDR/INJ, PRN, Dosing Weight 111.364, kg, PRN Blood G lucose Results, Start date: 09/15/16 4:50:00 CDT, Duration: 30 day, Stop date: 12/16/15 3:49:00 DIESEL ENGINE ASSEMBLER Start Date: 09/15/16 Stop Date: 09/20/16 Status: Discontinued glucagon 1 mg, Route: IM, Drug form: PDR/INJ, PRN, Dosing Weight 111.364, kg, PRN Blood G lucose Results, Start date: 09/15/16 1:41:00 CDT, Duration: 30 day, Stop date: 1 12/16/15 0:40:00 DIESEL ENGINE ASSEMBLER Start Date: 09/15/16 Stop Date: 09/15/16 Status: Discontinued heparin 5,000 unit, 1 mL, Route: SUB-Q, Drug form: INJ, Q12H, Dosing Weight 115, kg, Sta rt date: 09/15/16 21:00:00 CDT, Duration: 30 day, Stop date: 10/15/16 9:00:00 CS T Notes: porcine heparin Start Date: 09/15/16 Stop Date: 09/20/16 Status: Discontinued Humalog 8 unit, Route: SUB-Q, TID-Before Meals, Dosing Weight 115, kg, Start date: 09/15 16:30:00 CDT, Duration: 30 day, Stop date: 10/15/16 11:30:00 DIESEL ENGINE ASSEMBLER Start Date: 09/15/16 Stop Date: 09/15/16 Status: Deleted influenza virus vaccine, inactivated 0.5 mL, Route: IM, Drug Form: SUSP, Daily, Start date: 09/15/16 9:00:00 CDT, Dur ation: 1 doses or times, Stop date: 09/15/16 9:00:00 CDT Notes: (Same as: Fluzone Quadrivalent, Fluarix Quadrivalent)For 3 years of age a nd older (0.5 mL IM)Shake well before use Start Date: 09/15/16 Stop Date: 09/15/16 Status: Deleted insulin aspart 5 unit, 0.05 mL, Route: SUB-Q, Drug form: SOLN, TID-Before Meals, Dosing Weight 111.364, kg, PRN Blood Glucose Results, Start date: 09/15/16 4:50:00 CDT, Durati on: 30 day, Stop date: 10/15/16 4:49:00 DIESEL ENGINE ASSEMBLER Notes: Roll in palms of hands gently; Do not shake vigorously. (Same as: NovoLO G)"single patient use only"WASTE: F/P - Black; E - Municipal Trash Bin Stable f or 28 days at room temperature.Expires in days from Date Start Date: 09/15/16 Stop Date: 09/15/16 Status: Discontinued insulin aspart 4 unit, 0.04 mL, Route: SUB-Q, Drug form: SOLN, TID-Before Meals, Dosing Weight 111.364, kg, PRN Blood Glucose Results, Start date: 09/15/16 4:50:00 CDT, Durati on: 30 day, Stop date: 10/15/16 4:49:00 DIESEL ENGINE ASSEMBLER Notes: Roll in palms of hands gently; Do not shake vigorously. (Same as: Lilian Syed)"single patient use only"WASTE: F/P - Black; E - Municipal Trash Bin Stable f or 28 days at room temperature.Expires in days from Date Start Date: 09/15/16 Stop Date: 09/15/16 Status: Discontinued insulin aspart 2 unit, 0.02 mL, Route: SUB-Q, Drug form: SOLN, TID-Before Meals, Dosing Weight 111.364, kg, PRN Blood Glucose Results, Start date: 09/15/16 4:50:00 CDT, Durati on: 30 day, Stop date: 10/15/16 4:49:00 DIESEL ENGINE ASSEMBLER Notes: Roll in palms of hands gently; Do not shake vigorously. (Same as: Lilian Syed)"single patient use only"WASTE: F/P - Black; E - Municipal Trash Bin Stable f or 28 days at room temperature.Expires in days from Date Start Date: 09/15/16 Stop Date: 09/15/16 Status: Discontinued insulin aspart 1 unit, 0.01 mL, Route: SUB-Q, Drug form: SOLN, TID-Before Meals, Dosing Weight 111.364, kg, PRN Blood Glucose Results, Start date: 09/15/16 4:50:00 CDT, Durati on: 30 day, Stop date: 10/15/16 4:49:00 DIESEL ENGINE ASSEMBLER Notes: Roll in palms of hands gently; Do not shake vigorously. (Same as: Lilian Syed)"single patient use only"WASTE: F/P - Black; E - Municipal Trash Bin Stable f or 28 days at room temperature.Expires in days from Date Start Date: 09/15/16 Stop Date: 09/15/16 Status: Discontinued insulin aspart 3 unit, 0.03 mL, Route: SUB-Q, Drug form: SOLN, TID-Before Meals, Dosing Weight 111.364, kg, PRN Blood Glucose Results, Start date: 09/15/16 4:50:00 CDT, Durati on: 30 day, Stop date: 10/15/16 4:49:00 DIESEL ENGINE ASSEMBLER Notes: Roll in palms of hands gently; Do not shake vigorously. (Same as: Lilian Syed)"single patient use only"WASTE: F/P - Black; E - Municipal Trash Bin Stable f or 28 days at room temperature.Expires in days from Date Start Date: 09/15/16 Stop Date: 09/15/16 Status: Discontinued insulin aspart 4 unit, 0.04 mL, Route: SUB-Q, Drug form: SOLN, Bedtime, Dosing Weight 115, kg, PRN Blood Glucose Results, Start date: 09/15/16 9:02:00 CDT, Duration: 30 day, S top date: 10/15/16 9:01:00 DIESEL ENGINE ASSEMBLER Notes: Roll in palms of hands gently; Do not shake vigorously. (Same as: Lilian Syed)"single patient use only"WASTE: F/P - Black; E - Municipal Trash Bin Stable f or 28 days at room temperature.Expires in days from Date Start Date: 09/15/16 Stop Date: 09/20/16 Status: Discontinued insulin aspart 2 unit, 0.02 mL, Route: SUB-Q, Drug form: SOLN, Bedtime, Dosing Weight 115, kg, PRN Blood Glucose Results, Start date: 09/15/16 9:02:00 CDT, Duration: 30 day, S top date: 10/15/16 9:01:00 DIESEL ENGINE ASSEMBLER Notes: Roll in palms of hands gently; Do not shake vigorously. (Same as: Lilian Syed)"single patient use only"WASTE: F/P - Black; E - Municipal Trash Bin Stable f or 28 days at room temperature.Expires in days from Date Start Date: 09/15/16 Stop Date: 09/20/16 Status: Discontinued insulin aspart 3 unit, 0.03 mL, Route: SUB-Q, Drug form: SOLN, Bedtime, Dosing Weight 115, kg, PRN Blood Glucose Results, Start date: 09/15/16 9:02:00 CDT, Duration: 30 day, S top date: 10/15/16 9:01:00 DIESEL ENGINE ASSEMBLER Notes: Roll in palms of hands gently; Do not shake vigorously. (Same as: Lilian Syed)"single patient use only"WASTE: F/P - Black; E - Municipal Trash Bin Stable f or 28 days at room temperature.Expires in days from Date Start Date: 09/15/16 Stop Date: 09/20/16 Status: Discontinued insulin aspart 1 unit, 0.01 mL, Route: SUB-Q, Drug form: SOLN, Bedtime, Dosing Weight 115, kg, PRN Blood Glucose Results, Start date: 09/15/16 9:02:00 CDT, Duration: 30 day, S top date: 10/15/16 9:01:00 DIESEL ENGINE ASSEMBLER Notes: Roll in palms of hands gently; Do not shake vigorously. (Same as: Lilian Syed)"single patient use only"WASTE: F/P - Black; E - Municipal Trash Bin Stable f or 28 days at room temperature.Expires in days from Date Start Date: 09/15/16 Stop Date: 09/20/16 Status: Discontinued insulin aspart 15 unit, 0.15 mL, Route: SUB-Q, Drug form: SOLN, TID-Before Meals, Dosing Weight 115, kg, PRN Blood Glucose Results, Start date: 09/15/16 9:02:00 CDT, Duration: 30 day, Stop date: 10/15/16 9:01:00 DIESEL ENGINE ASSEMBLER Notes: Roll in palms of hands gently; Do not shake vigorously. (Same as: Lilian Syed)"single patient use only"WASTE: F/P - Black; E - Municipal Trash Bin Stable f or 28 days at room temperature.Expires in days from Date Start Date: 09/15/16 Stop Date: 09/20/16 Status: Discontinued insulin aspart 12 unit, 0.12 mL, Route: SUB-Q, Drug form: SOLN, TID-Before Meals, Dosing Weight 115, kg, PRN Blood Glucose Results, Start date: 09/15/16 9:02:00 CDT, Duration: 30 day, Stop date: 10/15/16 9:01:00 DIESEL ENGINE ASSEMBLER Notes: Roll in palms of hands gently; Do not shake vigorously. (Same as: Lilian Syed)"single patient use only"WASTE: F/P - Black; E - Municipal Trash Bin Stable f or 28 days at room temperature.Expires in days from Date Start Date: 09/15/16 Stop Date: 09/20/16 Status: Discontinued insulin aspart 3 unit, 0.03 mL, Route: SUB-Q, Drug form: SOLN, TID-Before Meals, Dosing Weight 115, kg, PRN Blood Glucose Results, Start date: 09/15/16 9:02:00 CDT, Duration: 30 day, Stop date: 10/15/16 9:01:00 DIESEL ENGINE ASSEMBLER Notes: Roll in palms of hands gently; Do not shake vigorously. (Same as: Lilian Syed)"single patient use only"WASTE: F/P - Black; E - Municipal Trash Bin Stable f or 28 days at room temperature.Expires in days from Date Start Date: 09/15/16 Stop Date: 09/20/16 Status: Discontinued insulin aspart 9 unit, 0.09 mL, Route: SUB-Q, Drug form: SOLN, TID-Before Meals, Dosing Weight 115, kg, PRN Blood Glucose Results, Start date: 09/15/16 9:02:00 CDT, Duration: 30 day, Stop date: 10/15/16 9:01:00 DIESEL ENGINE ASSEMBLER Notes: Roll in palms of hands gently; Do not shake vigorously. (Same as: NovoLO G)"single patient use only"WASTE: F/P - Black; E - Municipal Trash Bin Stable f or 28 days at room temperature.Expires in days from Date Start Date: 09/15/16 Stop Date: 09/20/16 Status: Discontinued insulin aspart 6 unit, 0.06 mL, Route: SUB-Q, Drug form: SOLN, TID-Before Meals, Dosing Weight 115, kg, PRN Blood Glucose Results, Start date: 09/15/16 9:02:00 CDT, Duration: 30 day, Stop date: 10/15/16 9:01:00 DIESEL ENGINE ASSEMBLER Notes: Roll in palms of hands gently; Do not shake vigorously. (Same as: NovoLO G)"single patient use only"WASTE: F/P - Black; E - Municipal Trash Bin Stable f or 28 days at room temperature.Expires in days from Date Start Date: 09/15/16 Stop Date: 09/20/16 Status: Discontinued insulin isophane (NPH) 100 units/mL human recombinant subcutaneous suspension 30 unit, SUB-Q, BID, # 20 mL, 3 Refill(s) Start Date: 09/20/16 Stop Date: 01/18/17 Status: Ordered insulin isophane-NPH 30 unit, 0.3 mL, Route: SUB-Q, Drug form: INJ, BID, Dosing Weight 115, kg, Start date: 09/19/16 17:00:00 DIESEL ENGINE ASSEMBLER, Duration: 30 day, Stop date: 10/19/16 9:00:00 DIESEL ENGINE ASSEMBLER Notes: Roll in palms of hands gently; Do not shake vigorously. (Same as: NovoLI N N, Humulin N)Do not hold insulin without contacting prescriber"single patient use only"WASTE: F/P - Black; E - Municipal Trash Bin Stable for 14 days at room temperatureExpires in days from Date Start Date: 09/19/16 Stop Date: 09/20/16 Status: Discontinued Insulin regular 5 unit, Route: IVP, ONCE, Dosing Weight 111.364, kg, Loading Dose, Priority: STA T, Start date: 09/15/16 1:41:00 CDT, Stop date: 09/15/16 1:41:00 CDT Start Date: 09/15/16 Stop Date: 09/15/16 Status: Completed Lancets 1 box, MISC, Daily, # 1 box, 0 Refill(s) Start Date: 09/20/16 Status: Ordered Levemir 10 unit, 0.1 mL, Route: SUB-Q, Drug form: INJ, Daily, Dosing Weight 115, kg, Milly ority: NOW, Start date: 09/15/16 9:01:00 CDT, Duration: 30 day, Stop date: 10/15 9:00:00 DIESEL ENGINE ASSEMBLER Notes: Same as LevemirDo not hold insulin without contacting prescriberWASTE: F/ P - Black; E - Municipal Trash Bin "single patient use only" Start Date: 09/15/16 Stop Date: 09/19/16 Status: Discontinued lidocaine topical 2% gel with applicator 1 appl, Route: TOP, Drug Form: GEL, Dosing Weight 115, kg, ONCE, STAT, Start jose g e: 09/15/16 17:23:00 CDT, Stop date: 09/15/16 17:23:00 CDT Notes: (Same as: Xylocaine Johnna Tapiastacon) Start Date: 09/15/16 Stop Date: 09/15/16 Status: Completed magnesium sulfate 2 gm in Water 50 ml 2 gm, 50 mL, Route: IVPB, Drug form: INJ, ONCE, Dosing Weight 115, kg, Start jose g e: 09/15/16 9:23:00 CDT, Duration: 2 hr, Stop date: 09/15/16 9:23:00 CDT Notes: WASTE: F/P - Sink; E - Municipal Trash Bin Start Date: 09/15/16 Stop Date: 09/15/16 Status: Completed metFORMIN 1,000 mg, PO, BID, 0 Refill(s) Start Date: 09/15/16 Stop Date: 09/20/16 Status: Discontinued metFORMIN 1000 mg oral tablet 1,000 mg, PO, BID, # 180 tab, 3 Refill(s) Start Date: 09/20/16 Stop Date: 09/15/17 Status: Ordered metroNIDAZOLE 500 mg oral tablet 500 mg=1 tab, PO, Q8H, X 14 day, # 42 tab, 0 Refill(s) Start Date: 09/20/16 Stop Date: 10/04/16 Status: Ordered [place] for Injection Syringe Misc/Other 1 ea, MISC, Daily, # 30 ea, 11 Refill(s) Start Date: 09/20/16 Stop Date: 09/17/28 Status: Ordered nitroglycerin 0.4 mg sublingual tablet 0.4 mg, 1 tab, Route: SL, Drug form: TAB, Q5Min, Dosing Weight 115, kg, PRN Ches t Pain, Start date: 09/16/16 0:13:00 CDT, Duration: 3 doses or times, Stop date: Limited # of times Notes: (Same as:Nitroquick, Nitrostat)"Do Not Crush" Sublingual tablet Start Date: 09/16/16 Stop Date: 09/20/16 Status: Discontinued NovoLOG FlexPen 8 unit, 0.08 mL, Route: SUB-Q, Drug form: SOLN, TID-Before Meals, Start date: 16:30:00 CDT, Duration: 30 day, Stop date: 10/15/16 11:30:00 DIESEL ENGINE ASSEMBLER Notes: Roll in palms of hands gently; Do not shake vigorously. (Same as: NovoLO G)"single patient use only"WASTE: F/P - Black; E - Municipal Trash Bin Stable f or 28 days at room temperature.Expires in days from Date Start Date: 09/15/16 Stop Date: 09/19/16 Status: Discontinued NS (Bolus) IV 1,000 mL, 1,000 ml/hr, Infuse Over: 1 hr, Route: IV, 1,000, Drug form: INJ, ONCE , Priority: STAT, Dosing Weight 111.364 kg, Start date: 09/15/16 3:07:00 CDT, Du ration: 1 doses or times, Stop date: 09/15/16 3:07:00 CDT Start Date: 09/15/16 Stop Date: 09/15/16 Status: Completed NS (Bolus) IV 1,000 mL, 1,000 ml/hr, Infuse Over: 1 hr, Route: IV, 1,000, Drug form: INJ, ONCE , Priority: STAT, Dosing Weight 111.364 kg, Start date: 09/15/16 3:07:00 CDT, Du ration: 1 doses or times, Stop date: 09/15/16 3:07:00 CDT Start Date: 09/15/16 Stop Date: 09/15/16 Status: Completed ondansetron 4 mg, Route: IVP, Drug form: INJ, ONCE, Dosing Weight 111.364, kg, Priority: STA T, Start date: 09/15/16 0:46:00 CDT, Stop date: 09/15/16 0:46:00 CDT Start Date: 09/15/16 Stop Date: 09/15/16 Status: Completed ondansetron 4 mg, Route: IVP, ONCE, Dosing Weight 111.364, kg, Priority: STAT, Start date: 11/15/15 1:41:00 CDT, Stop date: 09/15/16 1:41:00 CDT Start Date: 09/15/16 Stop Date: 09/15/16 Status: Completed ondansetron 4 mg, 2 mL, Route: IVP, Drug form: INJ, Q6H, Dosing Weight 111.364, kg, PRN Naus ea & Vomiting, Start date: 09/15/16 4:32:00 CDT, Duration: 30 day, Stop date: 10/15/16 4:31:00 DIESEL ENGINE ASSEMBLER Notes: (Same as: Deon) MEDICATION WASTE Product Size: 4 mgProduct Was sonia: ___ mg Start Date: 09/15/16 Stop Date: 09/20/16 Status: Discontinued pneumococcal 23-valent vaccine 0.5 mL, Route: IM, Daily, Start date: 09/15/16 9:00:00 CDT, Duration: 1 doses or times, Stop date: 09/15/16 9:00:00 CDT Start Date: 09/15/16 Stop Date: 09/15/16 Status: Discontinued potassium chloride 10 mEq, 100 mL, Route: IVPB, Drug form: INJ, Q1H, Dosing Weight 111.364, kg, Tot al Dose=20 meq, Start date: 09/15/16 3:00:00 CDT, Duration: 2 doses or times, St op date: 09/15/16 4:00:00 CDT, Peripheral Line Notes: Infuse at a rate of 10 mEq/hr.(Same as: KCL) Start Date: 09/15/16 Stop Date: 09/15/16 Status: Completed potassium chloride 20 mEq, Route: IVPB, ONCE, Dosing Weight 111.364, kg, Priority: STAT, Start date : 09/15/16 1:41:00 CDT, Stop date: 09/15/16 1:41:00 CDT Start Date: 09/15/16 Stop Date: 09/15/16 Status: Discontinued Saline Flush 0.9% 10 mL, Route: IVP, Drug Form: INJ, Dosing Weight 111.364, kg, PRN, PRN Line Flus h, Start date: 09/15/16 1:41:00 CDT, Duration: 30 day, Stop date: 10/15/16 0:40: 00 DIESEL ENGINE ASSEMBLER Notes: (Same as: BD Posiflush) Start Date: 09/15/16 Stop Date: 09/15/16 Status: Discontinued Saline Flush 0.9% 10 ml, Route: IVP, Drug Form: INJ, Dosing Weight 111.364, kg, PRN, PRN Line Flus h, Start date: 09/15/16 4:32:00 CDT, Duration: 30 day, Stop date: 10/15/16 3:31: 00 DIESEL ENGINE ASSEMBLER Notes: (Same as: BD Posiflush) Start Date: 09/15/16 Stop Date: 09/20/16 Status: Discontinued Sodium Chloride 0.9% (Bolus) IV 1,000 mL, 2,000 ml/hr, Infuse Over: 30 minutes, Route: IV, ONCE, Priority: STAT, Dosing Weight 111.364 kg, Start date: 09/15/16 1:27:00 CDT, Duration: 1 doses or times, Stop date: 09/15/16 1:27:00 CDT Start Date: 09/15/16 Stop Date: 09/15/16 Status: Completed Sodium Chloride 0.9% (Bolus) IV 1,000 mL, 2,000 ml/hr, Infuse Over: 30 minutes, Route: IV, ONCE, Priority: STAT, Dosing Weight 111.364 kg, Start date: 09/15/16 1:27:00 CDT, Duration: 1 doses or times, Stop date: 09/15/16 1:27:00 CDT Start Date: 09/15/16 Stop Date: 09/15/16 Status: Completed Sodium Chloride 0.9% (Bolus) IV 1,000 mL, 2,000 ml/hr, Infuse Over: 30 minutes, Route: IV, ONCE, Priority: STAT, Dosing Weight 111.364 kg, Start date: 09/15/16 2:30:00 CDT, Duration: 1 doses or times, Stop date: 09/15/16 2:30:00 CDT Start Date: 09/15/16 Stop Date: 09/15/16 Status: Completed sodium chloride 0.9% 1000 ml INJ 1,000 mL 1,000 mL, Rate: 125 ml/hr, Infuse over: 8 hr, Route: IV, Dosing Weight 111.364 k g, Total Volume: 1,000, Start date: 09/15/16 4:32:00 CDT, Duration: 30 day, Stop date: 10/15/16 4:31:00 DIESEL ENGINE ASSEMBLER Start Date: 09/15/16 Stop Date: 09/17/16 Status: Discontinued Syringes for Injection Misc/Other 1 ea, MISC, Daily, # 30 ea, 11 Refill(s) Start Date: 09/20/16 Stop Date: 09/17/28 Status: Ordered Tylenol 650 mg, 2 tab, Route: PO, Drug form: TAB, Q6H, Dosing Weight 115, kg, PRN Pain S core 1-3, Start date: 09/19/16 19:49:00 DIESEL ENGINE ASSEMBLER, Duration: 30 day, Stop date: 19:48:00 DIESEL ENGINE ASSEMBLER Notes: Do not exceed 4 gm/day. (Same as: Tylenol) Start Date: 09/19/16 Stop Date: 09/20/16 Status: Discontinued vancomycin + sodium chloride 0.9% 500 mL INJ (for IV set) 500 mL 2,000 mg, Route: IVPB, ONCE, Dosing Weight 111.364, kg, Priority: STAT, Start da te: 09/15/16 2:29:00 CDT, Stop date: 09/15/16 2:29:00 CDT Notes: TIME CRITICAL MEDICATION(Same As: Vancocin)Infusion rate< 1000 mg: infuse over 1 [id number] - 1500 mg: infuse over 1.5 [id number] - 2000 mg: infuse over 2 hours> 2001 mg: infuse over 2.5 hours MEDICATION WASTE Product Size: 1000 mgProduct Wasted: ___ mg Start Date: 09/15/16 Stop Date: 09/15/16 Status: Completed vancomycin + sodium chloride 0.9% INJ 250 mL 1 gm, Route: IVPB, [id number], Dosing Weight 111.364, kg, Priority: STAT, Start jose g e: 09/15/16 4:32:00 CDT, Duration: 30 day, Stop date: 10/14/16 18:00:00 DIESEL ENGINE ASSEMBLER Notes: TIME CRITICAL MEDICATION(Same As: Vancocin)Infusion rate< 1000 mg: infuse over 1 [id number] - 1500 mg: infuse over 1.5 [id number] - 2000 mg: infuse over 2 hours> 2001 mg: infuse over 2.5 hours MEDICATION WASTE Product Size: 1000 mgProduct Wasted: ___ mg Start Date: 09/15/16 Stop Date: 09/15/16 Status: Discontinued vancomycin + sodium chloride 0.9% INJ 250 mL 1,000 mg, Route: IVPB, [id number], Dosing Weight 115, kg, Start date: 09/15/16 19:0 0:00 CDT, Duration: 30 day, Stop date: 10/15/16 7:00:00 [employer] Notes: TIME CRITICAL MEDICATION(Same As: Vancocin)Infusion rate< 1000 mg: infuse over 1 [id number] - 1500 mg: infuse over 1.5 [id number] - 2000 mg: infuse over 2 hours> 2001 mg: infuse over 2.5 hours MEDICATION WASTE Product Size: 1000 mgProduct Wasted: ___ mg Start Date: 09/15/16 Stop Date: 09/19/16 Status: Discontinued Results ELECTROLYTES 1 2 3 Most recent to oldest [Reference Range]: 136 mEq/L (09/16/16 4:54 AM) 133 mEq/L *LOW* (09/15/16 9:43 AM) 132 mEq/L *LOW* (09/15/16 3:30 AM) Sodium Lvl [135-145 mEq/L] 3.6 mEq/L (09/16/16 4:54 AM) 3.9 mEq/L (09/15/16 9:43 AM) 4.3 mEq/L (09/15/16 3:30 AM) Potassium Lvl [3.5-5.1 mEq/L] 103 mEq/L (09/16/16 4:54 AM) 101 mEq/L (09/15/16 9:43 AM) 99 mEq/L (09/15/16 3:30 AM) Chloride Lvl [95-109 mEq/L] 24 mEq/L (09/16/16 4:54 AM) 23 mEq/L *LOW* (09/15/16 9:43 AM) 21 mEq/L *LOW* (09/15/16 3:30 AM) CO2 [24-32 mEq/L] 12.6 mEq/L (09/16/16 4:54 AM) 12.9 mEq/L (09/15/16 9:43 AM) 16.3 mEq/L (09/15/16 3:30 AM) AGAP [10.0-20.0 mEq/L] CHEM PANEL 1 2 3 Most recent to oldest [Reference Range]: 1.10 mg/dL (09/16/16 4:54 AM) 1.70 mg/dL *HI* (09/15/16 9:43 AM) 2.20 mg/dL *HI* (09/15/16 3:30 AM) Creatinine Lvl [0.50-1.40 mg/dL] 77 mL/min/1.73m2 1 *NA* (09/16/16 4:54 AM) 45 mL/min/1.73m2 2 *NA* (09/15/16 9:43 AM) 33 mL/min/1.73m2 3 *NA* (09/15/16 3:30 AM) eGFR 28 mg/dL *HI* (09/16/16 4:54 AM) 33 mg/dL *HI* (09/15/16 9:43 AM) 36 mg/dL *HI* (09/15/16 3:30 AM) BUN [7-22 mg/dL] 25 (09/16/16 4:54 AM) 14 (09/15/16 12:28 AM) B/C Ratio [6-25] 250 mg/dL *HI* (09/16/16 4:54 AM) 297 mg/dL *HI* (09/15/16 9:43 AM) 271 mg/dL *HI* (09/15/16 3:30 AM) Glucose Lvl [70-99 mg/dL] 6.1 g/dL *LOW* (09/16/16 4:54 AM) 7.9 g/dL (09/15/16 12:28 AM) Total Protein [6.4-8.4 g/dL] 2.1 g/dL *LOW* (09/16/16 4:54 AM) 2.7 g/dL *LOW* (09/15/16 12:28 AM) Albumin Lvl [3.5-5.0 g/dL] 4.0 g/dL (09/16/16 4:54 AM) 5.2 g/dL *HI* (09/15/16 12:28 AM) Globulin [2.7-4.2 g/dL] 0.5 *LOW* (09/16/16 4:54 AM) 0.5 *LOW* (09/15/16 12:28 AM) A/G Ratio [0.7-1.6] 7.6 mg/dL *LOW* (09/16/16 4:54 AM) 7.2 mg/dL *LOW* (09/15/16 9:43 AM) 6.4 mg/dL 4 *CRIT* (09/15/16 3:30 AM) Calcium Lvl [8.5-10.5 mg/dL] 2.0 mg/dL *LOW* (09/16/16 4:54 AM) 3.0 mg/dL (09/15/16 1:47 AM) Phosphorus [2.5-4.5 mg/dL] 1.9 mg/dL (09/16/16 4:54 AM) 1.7 mg/dL *LOW* (09/15/16 1:47 AM) Magnesium Lvl [1.8-2.4 mg/dL] 48 unit/L (09/16/16 4:54 AM) 33 unit/L (09/15/16 12:28 AM) ALT [0-65 unit/L] 68 unit/L *HI* (09/16/16 4:54 AM) 53 unit/L *HI* (09/15/16 12:28 AM) AST [0-37 unit/L] 80 unit/L (09/16/16 4:54 AM) 98 unit/L (09/15/16 12:28 AM) Alk Phos [39-136 unit/L] 1.0 mg/dL (09/16/16 4:54 AM) 1.3 mg/dL (09/15/16 12:28 AM) Bili Total [0.2-1.3 mg/dL] 80 unit/L (09/15/16 2:51 AM) Lipase Lvl [73-393 unit/L] 0.63 mmol/L *HI* (09/15/16 1:47 AM) Ketone Quantitative [<=0.27 mmol/L] 1.9 mMol/L (09/15/16 6:30 AM) 2.3 mMol/L *HI* (09/15/16 4:18 AM) 2.9 mMol/L *HI* (09/15/16 2:51 AM) Lactic Acid Lvl [0.5-2.2 mMol/L] 304 mOsm/kg *HI* (09/15/16 1:47 AM) Osmolality [280-300 mOsm/kg] 1Result Comment: The eGFR is calculated using [...] be mul tiplied by the estimated BMI. 4Result Comment: Critical Result(s) called to davey chakraborty at 09/15/2016 04:00 by chito. Read back OK. CARDIAC ENZYMES 1 2 3 Most recent to oldest [Reference Range]: 116 unit/L (09/15/16 3:18 PM) 194 unit/L *HI* (09/15/16 9:43 AM) 220 unit/L *HI* (09/15/16 6:30 AM) Total CK [12-191 unit/L] 2.1 ng/mL (09/15/16 3:18 PM) 2.4 ng/mL (09/15/16 9:43 AM) 2.1 ng/mL (09/15/16 6:30 AM) CK MB [0.5-3.6 ng/mL] 1.8 (09/15/16 3:18 PM) 1.2 (09/15/16 9:43 AM) 1.0 (09/15/16 6:30 AM) CK MB Index [0.0-2.5] 0.02 ng/mL (09/15/16 3:18 PM) 0.03 ng/mL (09/15/16 9:43 AM) 0.05 ng/mL (09/15/16 6:30 AM) Troponin-I [0.00-0.40 ng/mL] LIPIDS 1 2 3 Most recent to oldest [Reference Range]: 4.25 (09/15/16 9:43 AM) CHD Risk [4.00-7.30] 102 mg/dL (09/15/16 9:43 AM) Chol [<=199 mg/dL] 213 mg/dL *HI* (09/15/16 9:43 AM) Trig [<=149 mg/dL] 24 mg/dL *LOW* (09/15/16 9:43 AM) HDL [>=61 mg/dL] 35 mg/dL (09/15/16 9:43 AM) LDL (Calculated) [<=99 mg/dL] 43 *NA* (09/15/16 9:43 AM) VLDL SPECIAL CHEMISTRY 1 2 3 Most recent to oldest [Reference Range]: 9.7 % *HI* (09/15/16 9:43 AM) Hgb A1C [<=5.6 %] TOXICOLOGY 1 2 3 Most recent to oldest [Reference Range]: today *NA* (09/17/16 6:14 PM) Vanco Tr TND 10.1 ug/ml *NA* (09/17/16 6:14 PM) Vanco Tr <.003 % *NA* (09/15/16 1:47 AM) Etoh (%) <3 mg/dL *NA* (09/15/16 1:47 AM) Ethanol Lvl IMMUNOLOGY 1 2 3 Most recent to oldest [Reference Range]: 43.4 mg/L *HI* (09/20/16 6:10 AM) 59.8 mg/L *HI* (09/19/16 6:20 AM) 62.8 mg/L *HI* (09/18/16 4:38 AM) CRP [<=2.9 mg/L] HEMATOLOGY 1 2 3 Most recent to oldest [Reference Range]: 5.0 K/CMM (09/16/16 4:54 AM) 8.7 K/CMM (09/15/16 12:28 AM) WBC [3.7-10.4 K/CMM] 3.74 M/CMM *LOW* (09/16/16 4:54 AM) 4.75 M/CMM (09/15/16 12:28 AM) RBC [4.70-6.10 M/CMM] 11.0 g/dL *LOW* (09/16/16 4:54 AM) 14.5 g/dL (09/15/16 12:28 AM) Hgb [14.0-18.0 g/dL] 33.2 % *LOW* (09/16/16 4:54 AM) 41.8 % *LOW* (09/15/16 12:28 AM) Hct [42.0-54.0 %] 88.7 fL (09/16/16 4:54 AM) 88.2 fL (09/15/16 12:28 AM) MCV [80.0-94.0 fL] 29.4 pg (09/16/16 4:54 AM) 30.5 pg (09/15/16 12:28 AM) MCH [27.0-31.0 pg] 33.2 g/dL (09/16/16 4:54 AM) 34.6 g/dL (09/15/16 12:28 AM) MCHC [32.0-36.0 g/dL] 13.9 % (09/16/16 4:54 AM) 13.9 % (09/15/16 12:28 AM) RDW [11.5-14.5 %] 75 K/CMM *LOW* (09/16/16 4:54 AM) 101 K/CMM *LOW* (09/15/16 12:28 AM) Platelet [133-450 K/CMM] 11.2 fL *HI* (09/16/16 4:54 AM) 11.4 fL *HI* (09/15/16 12:28 AM) MPV [7.4-10.4 fL] 63.0 % (09/16/16 4:54 AM) 89.8 % *HI* (09/15/16 12:28 AM) Segs [45.0-75.0 %] 5.0 % (09/16/16 4:54 AM) Bands [0.0-11.0 %] 13.0 % *LOW* (09/16/16 4:54 AM) 5.7 % *LOW* (09/15/16 12:28 AM) Lymphocytes [20.0-40.0 %] 0.0 % (09/16/16 4:54 AM) Atypical Lymphs [<=0.0 %] 15.0 % *HI* (09/16/16 4:54 AM) 4.0 % (09/15/16 12:28 AM) Monocytes [2.0-12.0 %] 3.0 % (09/16/16 4:54 AM) 0.1 % (09/15/16 12:28 AM) Eosinophils [0.0-4.0 %] 1.0 % (09/16/16 4:54 AM) 0.4 % (09/15/16 12:28 AM) Basophils [0.0-1.0 %] 3.4 K/CMM (09/16/16 4:54 AM) 7.8 K/CMM (09/15/16 12:28 AM) Segs-Bands # [1.5-8.1 K/CMM] 0.6 K/CMM *LOW* (09/16/16 4:54 AM) 0.5 K/CMM *LOW* (09/15/16 12:28 AM) Lymphocytes # [1.0-5.5 K/CMM] 0.8 K/CMM (09/16/16 4:54 AM) 0.3 K/CMM (09/15/16 12:28 AM) Monocytes # [0.0-0.8 K/CMM] 0.2 K/CMM (09/16/16 4:54 AM) Eosinophils # [0.0-0.5 K/CMM] 0.0 K/CMM (09/16/16 4:54 AM) Basophils # [0.0-0.2 K/CMM] Slight *Unknown* (09/16/16 4:54 AM) Polychrom Normal (09/16/16 4:54 AM) Plt Morph 85 mm/hr *HI* (09/16/16 4:54 AM) Sed Rate [0-15 mm/hr] 13.4 seconds (09/16/16 4:54 AM) PT [12.0-14.7 seconds] 1.00 (09/16/16 4:54 AM) INR [0.85-1.17] 32.4 seconds (09/16/16 4:54 AM) 35.2 seconds (09/15/16 12:28 AM) PTT [22.9-35.8 seconds] Immunizations Given and Recorded Vaccine Date Status Refusal Reason Hx influenza vaccine-unspecified1 09/22/12 Given influenza virus vaccine, inactivated 09/15/16 Given pneumococcal 23-valent vaccine 05/09/14 Given tetanus toxoid 02/01/13 Given 1Admin Note: received at hospital Procedures Procedure [...] Plan Extracted from: Title: Clinical Document Author: Jyaleen Ríos MD Date: 09/20/16 Progress Daily [facility] Completed: Sep, 16:53 by Jayleen Ríos MD RM: 156 - 1P, [address] [id number] (: [id number]) M Attending: Mikaela Muro MDPhone: Service: Internal Medicine Reason for Admission: DEHYDRATION, DIABETIC KETOSIS, DIABETIC FOOT INFECTION Working DRG: MISC DISORDERS OF NUTRITION,METABOLISM,FLUIDS/ELECTROLYTES W/O FDC Code status: Full Code [Ordered]Current diet: Isolation: Contact [Ordered] Allergies: penicillins SUBJECTIVE feels better. c/s noted OBJECTIVE HEENT KAYLIN Neck supple RS Equal AE b/l no added sounds CVS S1S2 normal no murmur P/A soft Nontender,not distended BS +ve no mass MODEL [employer] FIREARMS AAox3 NO FND Skin rt foot plantar area 2.42 x 2.4 cm x2 deep bone palpable draining serosaguinous drainage. 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 He has high risk for limb los s with [facility] follow up abx per id as he cannot do iv abx and f/u DIAGNOSES & PROBLEMS Ready for Discharge (Yes/No)? Moy still necessary (Yes/No): Line still necessary (Yes/No): 24hr Labs 09/20 1557 Glucose YQP013 H 09/20 1123 Glucose CVL992 H 09/20 0629 Glucose XTJ549 H 09/20 0610 CRP43.4 H 09/20 0238 Glucose OPD068 H 09/19 2204 Glucose QNG594 H VitalsTmp(F)[id number] 09/20 11:5298.032371/207830--- 09/20 08:0097.284575/814353--- 09/20 04:2697.848806/674667--- 09/20 00:3598.059793/238377--- 09/19 21:3698.238436/876887--- 24 Hr Tmax: 98.4F (36.89c) at 09/19 21:36Vital Signs are the last 5 in the past 48 hours. DateWt(kg)Wt(lb)Ht(cm)Ht(in)Method 09/20111.51 245.31Measured 09/19112.05 246.50Measured 09/18116.00 255.20Measured 09/15 (initial)111.36 245.93848.18 67.00Estimated I&ORecordInOutBal 09/924hr Tot 300 0 300 09/824hr Tot 746 0 746 Medications (23) Active Scheduled Meds (6): 09/20/16 amLODIPine 5 mg PO Daily 09/16/16 ceFAZolin 2 gm IVPB ABXQ8H 200 ml/hr 09/19/16 ciprofloxacin 400 mg IVPB [id number] 200 ml/hr 09/15/16 (Suspended) heparin 5,000 unit [...] Time Meds: None Continuous Infusions: None Extracted from: Title: UIP Hospitalist Consultation Author: Nieves Patel MD [...]
--- OUTSIDE RECORDS SUMMARY | 2019-05-19 11:03 | XMS REPORT | Summary of Care ---
Author Author [facility] Organization [facility] Address Unknown Phone Unavailable [address]([place]) [id number] Date(s): 06/16/16 - 06/22/16 [facility] [address] [place] [address]- Discharge Disposition: Home or Self Care Attending Physician: Teddy Chilel MD Admitting Physician: Teddy Chilel MD Vital Signs 1 2 3 Most recent to oldest [Reference Range]: 165.1 cm (06/17/16 3:44 AM) 165.1 cm (06/16/16 10:41 PM) Height 98 DegF (06/22/16 12:00 PM) 98.1 DegF (06/22/16 8:00 AM) 98.2 DegF (06/22/16 4:43 AM) Temperature Oral [96.4-99.1 DegF] 144/86 mmHg *HI* (06/22/16 12:00 PM) 143/81 mmHg *HI* (06/22/16 8:00 AM) 142/83 mmHg *HI* (06/22/16 4:43 AM) Blood Pressure [90-140/60-90 mmHg] 18 BRMIN (06/22/16 12:00 PM) 17 BRMIN (06/22/16 8:00 AM) 18 BRMIN (06/22/16 4:43 AM) Respiratory Rate [14-20 BRMIN] 73 bpm (06/22/16 12:00 PM) 73 bpm (06/22/16 8:00 AM) 71 bpm (06/22/16 4:43 AM) Peripheral Pulse Rate [60-100 bpm] 111.534 kg (06/17/16 3:44 AM) 109.091 kg (06/16/16 10:41 PM) Weight 40.92 m2 (06/17/16 3:44 AM) 40.02 m2 (06/16/16 10:41 PM) Body Mass Index Problem List Condition [...] in 1-3/Temp > 100.4 F, Start date: 06/17/16 3:16:00 CDT, Duration: 30 day, Stop date: 07/17/16 3:15:00 CDT Notes: Do not exceed 4 gm/day. (Same as: Tylenol) Start Date: 06/17/16 Stop Date: 06/22/16 Status: Discontinued amLODIPine 5 mg, 1 tab, Route: PO, Drug form: TAB, Daily, Dosing Weight 111.534, kg, Priori ty: NOW, Start date: 06/18/16 15:13:00 CDT, Duration: 30 day, Stop date: 6 9:00:00 CDT Notes: (Same as: Norvasc) Start Date: 06/18/16 Stop Date: 06/22/16 Status: Discontinued amLODIPine 5 mg oral tablet 5 mg=1 tab, PO, Daily, # 30 tab, 0 Refill(s) Start Date: 06/22/16 Stop Date: 07/22/16 Status: Ordered atropine 0.5 mg, 5 mL, Route: IVP, Drug form: INJ, ONCE, Dosing Weight 109.091, kg, PRN B radycardia, Start date: 06/17/16 3:43:00 CDT, Stop date: 06/17/16 3:43:00 CDT Start Date: 06/17/16 Stop Date: 06/17/16 Status: Completed aztreonam + sodium chloride 0.9% INJ 100 mL 2 gm, Route: IV, ONCE, Dosing Weight 109.091, kg, Priority: STAT, Start date: 1:30:00 CDT, Stop date: 06/17/16 1:30:00 CDT Notes: (Same As: Azactam) Start Date: 06/17/16 Stop Date: 06/17/16 Status: Completed cefepime + sodium chloride 0.9% INJ 100 mL 2 gm, Route: IVPB, ABXQ8H, Dosing Weight 111.534, kg, (CrCl >/=50 ml/min, [employer] infection or neutropenic fever), Start date: 06/20/16 17:00:00 CDT, Duration: 30 day, Stop date: 07/20/16 9:00:00 CDT Notes: (Same as: Maxipime) MEDICATION WASTE Product Size: 2000 mgProduc t Wasted: ___ mg Start Date: 06/20/16 Stop Date: 06/22/16 Status: Discontinued Dextrose 50% Syringe 12.5 gm, 25 mL, Route: IVP, Drug Form: INJ, Dosing Weight 109.091, kg, PRN, PRN Blood Glucose Results, Start date: 06/17/16 3:16:00 CDT, Duration: 30 day, Stop date: 07/17/16 3:15:00 CDT Start Date: 06/17/16 Stop Date: 06/22/16 Status: Discontinued Dextrose 50% Syringe 25 gm, 50 mL, Route: IVP, Drug Form: INJ, Dosing Weight 109.091, kg, PRN, PRN Bl ood Glucose Results, Start date: 06/17/16 3:16:00 CDT, Duration: 30 day, Stop da te: 07/17/16 3:15:00 CDT Start Date: 06/17/16 Stop Date: 06/22/16 Status: Discontinued Flagyl 500 mg, 100 mL, Route: IVPB, Drug form: INJ, ABXQ8H, Dosing Weight 111.534, kg, Start date: 06/20/16 17:00:00 CDT, Duration: 30 day, Stop date: 07/20/16 9:00:00 CDT Notes: (Same as: Flagyl) Avoid alcohol. Start Date: 06/20/16 Stop Date: 06/22/16 Status: Discontinued glucagon 1 mg, Route: IM, Drug form: PDR/INJ, PRN, Dosing Weight 109.091, kg, PRN Blood G lucose Results, Start date: 06/17/16 3:16:00 CDT, Duration: 30 day, Stop date: 0 07/17/16 3:15:00 CDT Start Date: 06/17/16 Stop Date: 06/22/16 Status: Discontinued insulin aspart 8 unit, 0.08 mL, Route: SUB-Q, Drug form: SOLN, TID-Before Meals, Dosing Weight 109.091, kg, PRN Blood Glucose Results, Start date: 06/17/16 3:16:00 CDT, Durati on: 30 day, Stop date: 07/17/16 3:15:00 CDT Notes: Roll in palms of hands gently; Do not shake vigorously. (Same as: Lilian Syed)"single patient use only"WASTE: F/P - Black; E - Municipal Trash Bin Stable f or 28 days at room temperature.Expires in days from Date Start Date: 06/17/16 Stop Date: 06/22/16 Status: Discontinued insulin aspart 6 unit, 0.06 mL, Route: SUB-Q, Drug form: SOLN, TID-Before Meals, Dosing Weight 109.091, kg, PRN Blood Glucose Results, Start date: 06/17/16 3:16:00 CDT, Durati on: 30 day, Stop date: 07/17/16 3:15:00 CDT Notes: Roll in palms of hands gently; Do not shake vigorously. (Same as: Lilian Syed)"single patient use only"WASTE: F/P - Black; E - Municipal Trash Bin Stable f or 28 days at room temperature.Expires in days from Date Start Date: 06/17/16 Stop Date: 06/22/16 Status: Discontinued insulin aspart 4 unit, 0.04 mL, Route: SUB-Q, Drug form: SOLN, TID-Before Meals, Dosing Weight 109.091, kg, PRN Blood Glucose Results, Start date: 06/17/16 3:16:00 CDT, Durati on: 30 day, Stop date: 07/17/16 3:15:00 CDT Notes: Roll in palms of hands gently; Do not shake vigorously. (Same as: Lilian Syed)"single patient use only"WASTE: F/P - Black; E - Municipal Trash Bin Stable f or 28 days at room temperature.Expires in days from Date Start Date: 06/17/16 Stop Date: 06/22/16 Status: Discontinued insulin aspart 2 unit, 0.02 mL, Route: SUB-Q, Drug form: SOLN, TID-Before Meals, Dosing Weight 109.091, kg, PRN Blood Glucose Results, Start date: 06/17/16 3:16:00 CDT, Durati on: 30 day, Stop date: 07/17/16 3:15:00 CDT Notes: Roll in palms of hands gently; Do not shake vigorously. (Same as: Lilian Syed)"single patient use only"WASTE: F/P - Black; E - Municipal Trash Bin Stable f or 28 days at room temperature.Expires in days from Date Start Date: 06/17/16 Stop Date: 06/22/16 Status: Discontinued insulin aspart 10 unit, 0.1 mL, Route: SUB-Q, Drug form: SOLN, TID-Before Meals, Dosing Weight 109.091, kg, PRN Blood Glucose Results, Start date: 06/17/16 3:16:00 CDT, Durati on: 30 day, Stop date: 07/17/16 3:15:00 CDT Notes: Roll in palms of hands gently; Do not shake vigorously. (Same as: Lilian Syed)"single patient use only"WASTE: F/P - Black; E - Municipal Trash Bin Stable f or 28 days at room temperature.Expires in days from Date Start Date: 06/17/16 Stop Date: 06/22/16 Status: Discontinued insulin aspart 1 unit, 0.01 mL, Route: SUB-Q, Drug form: SOLN, Bedtime, Dosing Weight 111.534, kg, PRN Blood Glucose Results, Start date: 06/17/16 20:34:00 CDT, Duration: 30 d ay, Stop date: 07/17/16 20:33:00 CDT Notes: Roll in palms of hands gently; Do not shake vigorously. (Same as: Lilian Syed)"single patient use only"WASTE: F/P - Black; E - Municipal Trash Bin Stable f or 28 days at room temperature.Expires in days from Date Start Date: 06/17/16 Stop Date: 06/22/16 Status: Discontinued insulin aspart 2 unit, 0.02 mL, Route: SUB-Q, Drug form: SOLN, Bedtime, Dosing Weight 111.534, kg, PRN Blood Glucose Results, Start date: 06/17/16 20:34:00 CDT, Duration: 30 d ay, Stop date: 07/17/16 20:33:00 CDT Notes: Roll in palms of hands gently; Do not shake vigorously. (Same as: Lilian Syed)"single patient use only"WASTE: F/P - Black; E - Municipal Trash Bin Stable f or 28 days at room temperature.Expires in days from Date Start Date: 06/17/16 Stop Date: 06/22/16 Status: Discontinued insulin aspart 4 unit, 0.04 mL, Route: SUB-Q, Drug form: SOLN, Bedtime, Dosing Weight 111.534, kg, PRN Blood Glucose Results, Start date: 06/17/16 20:34:00 CDT, Duration: 30 d ay, Stop date: 07/17/16 20:33:00 CDT Notes: Roll in palms of hands gently; Do not shake vigorously. (Same as: Lilian Syed)"single patient use only"WASTE: F/P - Black; E - Municipal Trash Bin Stable f or 28 days at room temperature.Expires in days from Date Start Date: 06/17/16 Stop Date: 06/22/16 Status: Discontinued insulin aspart 3 unit, 0.03 mL, Route: SUB-Q, Drug form: SOLN, Bedtime, Dosing Weight 111.534, kg, PRN Blood Glucose Results, Start date: 06/17/16 20:34:00 CDT, Duration: 30 d ay, Stop date: 07/17/16 20:33:00 CDT Notes: Roll in palms of hands gently; Do not shake vigorously. (Same as: Lilian Syed)"single patient use only"WASTE: F/P - Black; E - Municipal Trash Bin Stable f or 28 days at room temperature.Expires in days from Date Start Date: 06/17/16 Stop Date: 06/22/16 Status: Discontinued Keflex 500 mg oral capsule 500 mg=1 cap, PO, QID, X 10 day, # 40 cap, 0 Refill(s) Start Date: 06/22/16 Stop Date: 07/02/16 Status: Ordered Lantus 100 units/mL 10 unit, Route: SUB-Q, Bedtime, Dosing Weight 111.534, kg, Start date: 06/18/16 21:00:00 CDT, Duration: 30 day, Stop date: 07/17/16 21:00:00 CDT Start Date: 06/18/16 Stop Date: 06/18/16 Status: Discontinued Levemir FlexPen 10 unit, 0.1 mL, Route: SUB-Q, Drug form: INJ, Bedtime, Start date: 06/18/16 21: 00:00 CDT, Duration: 30 day, Stop date: 07/17/16 21:00:00 CDT Notes: Same as LevemirDo not hold insulin without contacting prescriberWASTE: F/ P - Black; E - Municipal Trash Bin "single patient use only" Start Date: 06/18/16 Stop Date: 06/19/16 Status: Discontinued Levemir FlexPen 20 unit, 0.2 mL, Route: SUB-Q, Drug form: INJ, Bedtime, Start date: 06/19/16 21: 00:00 CDT, Duration: 30 day, Stop date: 07/18/16 21:00:00 CDT Notes: Same as LevemirDo not hold insulin without contacting prescriberWASTE: F/ P - Black; E - Municipal Trash Bin "single patient use only" Start Date: 06/19/16 Stop Date: 06/22/16 Status: Discontinued Levemir FlexPen 100 units/mL subcutaneous solution 20 unit, SUB-Q, Bedtime, # 1 pen(s), 3 Refill(s) Start Date: 06/22/16 Status: Ordered lisinopril 10 mg, 1 tab, Route: PO, Drug form: TAB, Daily, Dosing Weight 111.534, kg, Start date: 06/17/16 12:00:00 CDT, Duration: 30 day, Stop date: 07/17/16 9:00:00 CDT Notes: (Same as: Prinivray Zestril) Start Date: 06/17/16 Stop Date: 06/19/16 Status: Discontinued metFORMIN 1,000 mg, 2 tab, Route: PO, Drug form: TAB, BID, Dosing Weight 111.534, kg, Star t date: 06/17/16 17:00:00 CDT, Duration: 30 day, Stop date: 07/17/16 9:00:00 CDT Notes: (Same as: Glucophage) Take with meal Start Date: 06/17/16 Stop Date: 06/22/16 Status: Discontinued metFORMIN 1000 mg oral tablet 1,000 mg, PO, BID, # 60 tab, 0 Refill(s) Start Date: 06/22/16 Stop Date: 07/22/16 Status: Ordered morphine Sulfate 2 mg, 1 mL, Route: IVP, Drug form: INJ, Q4H, Dosing Weight 109.091, kg, PRN Pain Score 7-10, Start date: 06/17/16 3:16:00 CDT, Duration: 30 day, Stop date: 03/27 3:15:00 CDT Notes: (Same as:MORPhine Sulfate) Start Date: 06/17/16 Stop Date: 06/22/16 Status: Discontinued [place] for Injection Syringe Misc/Other 1 ea, MISC, Daily, # 30 ea, 11 Refill(s) Start Date: 06/22/16 Stop Date: 06/19/28 Status: Ordered nitroglycerin 0.4 mg, 1 tab, Route: SL, Drug form: TAB, Q5Min, Dosing Weight 109.091, kg, PRN Chest Pain, Start date: 06/17/16 3:42:00 CDT, Duration: 30 day, Stop date: 07/17 3:41:00 CDT Notes: (Same as:Nitroquick, Nitrostat)"Do Not Crush" Sublingual tablet Start Date: 06/17/16 Stop Date: 06/22/16 Status: Discontinued [place] 10/325 oral tablet 1 tab, Route: PO, Drug Form: TAB, Dosing Weight 111.534, kg, Q4H, PRN Pain Score 1-3, Start date: 06/17/16 9:45:00 CDT, Duration: 30 day, Stop date: 07/17/16 9: 44:00 CDT Notes: Do not exceed 4gm/day of acetaminophen. (Same as: [place] 325/10) Start Date: 06/17/16 Stop Date: 06/22/16 Status: Discontinued NURSE: Please wait for vanco blood drawn before giving dose NURSE: Please wait for vanco blood drawn before giving dose, 1, Drug form: MISC, Route: MISC, ONCE, 06/20/16 1:30:00 CDT, Stop date: 06/20/16 1:30:00 CDT Start Date: 06/20/16 Stop Date: 06/20/16 Status: Completed ondansetron 4 mg, 2 mL, Route: IVP, Drug form: INJ, Q6H, Dosing Weight 109.091, kg, PRN Naus ea & Vomiting, Start date: 06/17/16 3:16:00 CDT, Duration: 30 day, Stop date: 07/17/16 3:15:00 CDT Notes: (Same as: Deon) MEDICATION WASTE Product Size: 4 mgProduct Was sonia: ___ mg Start Date: 06/17/16 Stop Date: 06/22/16 Status: Discontinued Sodium Chloride 0.9% (Bolus) IV 3,272.73 mL, 2,000 ml/hr, Route: IV, ONCE, Priority: STAT, Dosing Weight 109.091 kg, Start date: 06/17/16 1:30:00 CDT, Duration: 1 doses or times, Stop date: 1:30:00 CDT, Sepsis dose; round UP Only Start Date: 06/17/16 Stop Date: 06/17/16 Status: Completed vancomycin 1,500 mg, 250 mL, Route: IVPB, Drug form: INJ, [id number], Dosing Weight 111.534, k g, Start date: 06/17/16 14:00:00 CDT, Duration: 30 day, Stop date: 07/17/16 2:00 :00 CDT Notes: TIME CRITICAL MEDICATIONSame as: Vancocin-NS (premixed)Infusion rate< 1000 mg: infuse over 1 [id number] - 1500 mg: infuse over 1.5 [id number] - 2000 mg: infuse over 2 hours> 2001 mg: infuse over 2.5 hours Start Date: 06/17/16 Stop Date: 06/20/16 Status: Discontinued vancomycin + sodium chloride 0.9% 500 mL INJ (for IV set) 500 mL 2 gm, Route: IVPB, ONCE, Dosing Weight 109.091, kg, Priority: STAT, Start date: 06/17/16 1:11:00 CDT, Stop date: 06/17/16 1:11:00 CDT Notes: TIME CRITICAL MEDICATION(Same As: Vancocin)Infusion rate< 1000 mg: infuse over 1 [id number] - 1500 mg: infuse over 1.5 [id number] - 2000 mg: infuse over 2 hours> 2001 mg: infuse over 2.5 hours MEDICATION WASTE Product Size: 1000 mgProduct Wasted: ___ mg Start Date: 06/17/16 Stop Date: 06/17/16 Status: Completed vancomycin + sodium chloride 0.9% INJ 250 mL 1,000 mg, Route: IVPB, [id number], Dosing Weight 111.534, kg, Start date: 06/17/16 14:00:00 CDT, Duration: 30 day, Stop date: 07/17/16 2:00:00 CDT Notes: TIME CRITICAL MEDICATION(Same As: Vancocin)Infusion rate< 1000 mg: infuse over 1 [id number] - 1500 mg: infuse over 1.5 [id number] - 2000 mg: infuse over 2 hours> 2001 mg: infuse over 2.5 hours MEDICATION WASTE Product Size: 1000 mgProduct Wasted: ___ mg Start Date: 06/17/16 Stop Date: 06/17/16 Status: Canceled vancomycin + sodium chloride 0.9% INJ 250 mL 1,000 mg, Route: IVPB, [id number], Dosing Weight 111.534, kg, Start date: 06/20/16 2 3:00:00 CDT, Duration: 30 day, Stop date: 07/20/16 16:00:00 CDT Notes: TIME CRITICAL MEDICATION(Same As: Vancocin)Infusion rate< 1000 mg: infuse over 1 [id number] - 1500 mg: infuse over 1.5 [id number] - 2000 mg: infuse over 2 hours> 2001 mg: infuse over 2.5 hours MEDICATION WASTE Product Size: 1000 mgProduct Wasted: ___ mg Start Date: 06/20/16 Stop Date: 06/22/16 Status: Discontinued Results ELECTROLYTES 1 2 3 Most recent to oldest [Reference Range]: 133 mEq/L *LOW* (06/22/16 12:22 PM) 130 mEq/L *LOW* (06/18/16 4:11 AM) 130 mEq/L *LOW* (06/17/16 12:01 AM) Sodium Lvl [135-145 mEq/L] 3.9 mEq/L (06/22/16 12:22 PM) 3.5 mEq/L (06/18/16 4:11 AM) 3.9 mEq/L (06/17/16 12:01 AM) Potassium Lvl [3.5-5.1 mEq/L] 99 mEq/L (06/22/16 12:22 PM) 96 mEq/L (06/18/16 4:11 AM) 95 mEq/L (06/17/16 12:01 AM) Chloride Lvl [95-109 mEq/L] 31 mEq/L (06/22/16 12:22 PM) 27 mEq/L (06/18/16 4:11 AM) 27 mEq/L (06/17/16 12:01 AM) CO2 [24-32 mEq/L] 6.9 mEq/L *LOW* (06/22/16 12:22 PM) 10.5 mEq/L (06/18/16 4:11 AM) 11.9 mEq/L (06/17/16 12:01 AM) AGAP [10.0-20.0 mEq/L] CHEM PANEL 1 2 3 Most recent to oldest [Reference Range]: 0.90 mg/dL (06/22/16 12:22 PM) 0.89 mg/dL (06/18/16 4:11 AM) 0.95 mg/dL (06/17/16 12:01 AM) Creatinine Lvl [0.50-1.40 mg/dL] 98 mL/min/1.73m2 1 *NA* (06/22/16 12:22 PM) 98 mL/min/1.73m2 2 *NA* (06/18/16:11 AM) 91 mL/min/1.73m2 3 *NA* (06/17/16 12: AM) eGFR 11 mg/dL (06/22/16 12:22 PM) 11 mg/dL (06/18/16:11 AM) 9 mg/dL (06/17/16 12:01 AM) BUN [7-22 mg/dL] 9 (06/17/16 12:01 AM) B/C Ratio [6-25] 163 mg/dL *HI* (06/22/16 12:22 PM) 262 mg/dL *HI* (06/18/16 4:11 AM) 309 mg/dL *HI* (06/17/16 12:01 AM) Glucose Lvl [70-99 mg/dL] 7.7 g/dL (06/17/16 12:01 AM) Total Protein [6.4-8.4 g/dL] 3.0 g/dL *LOW* (06/17/16 12:01 AM) Albumin Lvl [3.5-5.0 g/dL] 4.7 g/dL *HI* (06/17/16 12:01 AM) Globulin [2.7-4.2 g/dL] 0.6 *LOW* (06/17/16 12:01 AM) A/G Ratio [0.7-1.6] 8.7 mg/dL (06/22/16 12:22 PM) 8.1 mg/dL *LOW* (06/18/16 4:11 AM) 8.1 mg/dL *LOW* (06/17/16 12:01 AM) Calcium Lvl [8.5-10.5 mg/dL] 17 unit/L (06/17/16 12:01 AM) ALT [0-65 unit/L] 23 unit/L (06/17/16 12:01 AM) AST [0-37 unit/L] 128 unit/L (06/17/16 12:01 AM) Alk Phos [39-136 unit/L] 0.4 mg/dL (06/17/16 12:01 AM) Bili Total [0.2-1.3 mg/dL] 1.4 mMol/L (06/17/16 6:04 AM) 2.6 mMol/L *HI* (06/17/16 12:01 AM) Lactic Acid Lvl [0.5-2.2 mMol/L] <0.05 ng/mL (06/17/16 12:01 AM) Procalcitonin Lvl [0.00-0.10 ng/mL] 1Result Comment: [...] 3 Most recent to oldest [Reference Range]: 9.8 % *HI* (06/17/16 12:01 AM) Hgb A1C [<=5.6 %] TOXICOLOGY 1 2 3 Most recent to oldest [Reference Range]: 23:30 *NA* (06/21/16 11:47 PM) 0130 *NA* (06/20/16 2:32 AM) 0130 *NA* (06/19/16 1:26 AM) [facility].1 [facility]/ml *NA* (06/21/16 11:47 PM) 12.5 ug/ml *NA* (06/20/16 2:32 AM) 20.0 ug/ml *NA* (06/19/16 1:26 AM) Vanco Tr IMMUNOLOGY 1 2 3 Most recent to oldest [Reference Range]: 90.4 mg/L *HI* (06/18/16 4:11 AM) CRP [<=2.9 mg/L] HEMATOLOGY 1 2 3 Most recent to oldest [Reference Range]: 4.9 K/CMM (06/22/16 12:22 PM) 5.6 K/CMM (06/18/16 4:11 AM) 5.0 K/CMM (06/17/16 12:01 AM) WBC [3.7-10.4 K/CMM] 4.20 M/CMM *LOW* (06/22/16 12:22 PM) 3.89 M/CMM *LOW* (06/18/16 4:11 AM) 4.14 M/CMM *LOW* (06/17/16 12:01 AM) RBC [4.70-6.10 M/CMM] 13.1 g/dL *LOW* (06/22/16 12:22 PM) 12.2 g/dL *LOW* (06/18/16 4:11 AM) 12.9 g/dL *LOW* (06/17/16 12:01 AM) Hgb [14.0-18.0 g/dL] 38.0 % *LOW* (06/22/16 12:22 PM) 35.2 % *LOW* (06/18/16 4:11 AM) 37.4 % *LOW* (06/17/16 12:01 AM) Hct [42.0-54.0 %] 90.4 fL (06/22/16 12:22 PM) 90.3 fL (06/18/16 4:11 AM) 90.4 fL (06/17/16 12:01 AM) MCV [80.0-94.0 fL] 31.1 pg *HI* (06/22/16 12:22 PM) 31.3 pg *HI* (06/18/16 4:11 AM) 31.1 pg *HI* (06/17/16 12:01 AM) MCH [27.0-31.0 pg] 34.4 g/dL (06/22/16 12:22 PM) 34.7 g/dL (06/18/16 4:11 AM) 34.4 g/dL (06/17/16 12:01 AM) MCHC [32.0-36.0 g/dL] 14.1 % (06/22/16 12:22 PM) 14.7 % *HI* (06/18/16 4:11 AM) 14.8 % *HI* (06/17/16 12:01 AM) RDW [11.5-14.5 %] 182 K/CMM (06/22/16 12:22 PM) 128 K/CMM *LOW* (06/18/16 4:11 AM) 131 K/CMM *LOW* (06/17/16 12:01 AM) Platelet [133-450 K/CMM] 9.2 fL (06/22/16 12:22 PM) 10.4 fL (06/18/16 4:11 AM) 10.0 fL (06/17/16 12:01 AM) MPV [7.4-10.4 fL] 63.2 % (06/22/16 12:22 PM) 60.2 % (06/18/16 4:11 AM) 69.4 % (06/17/16 12:01 AM) Segs [45.0-75.0 %] 20.6 % (06/22/16:22 PM) 24.5 % (06/18/16 4:11 AM) 17.7 % *LOW* (06/17/16 12:01 AM) Lymphocytes [20.0-40.0 %] 9.7 % (06/22/16 12:22 PM) 12.3 % *HI* (06/18/16 4:11 AM) 10.5 % (06/17/16 12:01 AM) Monocytes [2.0-12.0 %] 5.8 % *HI* (06/22/16:22 PM) 2.3 % (06/18/16 4:11 AM) 1.7 % (06/17/16 12:01 AM) Eosinophils [0.0-4.0 %] 0.7 % (06/22/16 12:22 PM) 0.7 % (06/18/16 4:11 AM) 0.7 % (06/17/16 12:01 AM) Basophils [0.0-1.0 %] 3.1 K/CMM (06/22/16 12:22 PM) 3.4 K/CMM (06/18/16 4:11 AM) 3.5 K/CMM (06/17/16 12:01 AM) Segs-Bands # [1.5-8.1 K/CMM] 1.0 K/CMM (06/22/16 12:22 PM) 1.4 K/CMM (06/18/16 4:11 AM) 0.9 K/CMM *LOW* (06/17/16 12:01 AM) Lymphocytes # [1.0-5.5 K/CMM] 0.5 K/CMM (06/22/16 12:22 PM) 0.7 K/CMM (06/18/16 4:11 AM) 0.5 K/CMM (06/17/16 12:01 AM) Monocytes # [0.0-0.8 K/CMM] 0.3 K/CMM (06/22/16 12:22 PM) 0.1 K/CMM (06/18/16 4:11 AM) 0.1 K/CMM (06/17/16 12:01 AM) Eosinophils # [0.0-0.5 K/CMM] 89 mm/hr *HI* (06/18/16 4:11 AM) Sed Rate [0-15 mm/hr] 14.5 seconds (06/17/16 12:01 AM) PT [12.0-14.7 seconds] 1.10 (06/17/16 12:01 AM) INR [0.85-1.17] 32.3 seconds (06/17/16 12:01 AM) PTT [22.9-35.8 seconds] Immunizations Given and Recorded Vaccine Date Status Refusal Reason Hx influenza vaccine-unspecified1 09/22/12 Given pneumococcal 23-valent vaccine 05/09/14 Given tetanus [...] Plan Extracted from: Title: Clinical Document Author: Heather Doe NP Date: 06/22/16 Progress Note - Daily [facility] Completed: Jun, 08:07 by Heather Doe NP RM: 143 - 1P, SE [id number] (: 1965) M Attending: Teddy Chilel MDPhone: Service: Internal Medicine Reason for Admission: RIGHT FOOT-STUMP INFECTION, R/O SPESIS Working DRG: Diabetes w CC Code status: Full Code [Ordered]Current diet: Isolation: Contact [Ordered] Allergies: penicillins SUBJECTIVE Pt seen and examined. Resting comfortably, discussed d/c planning. OBJECTIVE 24hr Labs 06/22 0643 Glucose [id number] H 06/22 0336 Glucose GBF281 H 06/21 2347 Vanco Tr TND23:30 Vanco Tr16.1 06/21 2049 Glucose [id number] H 06/21 1559 Glucose FAM530 H 06/21 1044 Glucose PRC768 H [place] still necessary (Yes/No): Line still necessary (Yes/No): VitalsTmp(F)[id number] 06/22 08:[id number]--- 06/22 04:4398.517164/[id number]--- 06/22 00:1498.053457/605832--- 06/21 20:2398.995243/[id number]--- 06/21 16:[id number]--- 24 Hr Tmax: 98.3F (36.83c) at 06/21 20:23Vital Signs are the last 5 in the past 48 hours. DateWt(kg)Wt(lb)Ht(cm)Ht(in)Method 06/17111.53 245.91930.10 65.00Measured 06/16 (initial)109.09 240.71490.10 65.00Estimated I&ORecordInOutBal 06/1024hr Tot 1941 1924 17 06/924hr Tot 1927 1739 188 Medications (23) Active Scheduled Meds (6): [...] Syringe) 25 gm IVP PRN 06/17/16 acetaminophen-hydrocodone ([place] 10/325 oral tablet) 1 tab PO Q4H [...] Time Meds: None Continuous Infusions: None ASSESSMENT & EXAM GENERAL APPEARANCE: Awake, alert, oriented x [...] Ready for Discharge (Yes/No)? TEACHING ATTESTATION Extracted from: Title: Clinical Document Author: Maura Urban MD Date: 06/17/16 [facility] INFECTIOUS DISEASES CONSULTATION NOTE Maura Urban M.D. Ahswin Rand M.D. REFERRING PHYSICIAN: Dr. Teddy Chilel REASON FOR CONSULTATION: Diabetic Foot Wound CHIEF COMPLAINT: Right foot drainage HISTORY OF PRESENT ILLNESS: Mr. Haim Marcos is a 51 year old gentleman who [...] received about 4 weeks of treatment at [facility] then left early to address issues at [...] tobacco use FAMILY HISTORY: DM PHYSICAL EXAMINATION: VitalsTmp(F)[id number] 06/17 08:2698.803104/185587--- 06/17 04:0099.971937/801813--- 06/17 01:5798.625077/075312--- 06/17 00:3202083348/851840--- 06/16 23:6780734099/[id number]--- 24 Hr Tmax: 99.2F (37.33c) at 06/17 04:00Vital Signs are the last 5 in the [...] 0.9% INJ 250 mL 1,000 mg IVPB [id number] 250 ml/hr ALLERGIES: Allergies (1) ActiveReaction penicillinsNone documented LABORATORY (Reviewed): Labs (Last four charted values) WBC 5.0(JUN 17) Hgb L 12.9(JUN 17) Hct L 37.4(JUN 17) Plt L 131(JUN 17) Na L 130(JUN 17) K 3.9(JUN 17) CO2 27(JUN 17) Cl 95(JUN 17) Cr 0.95(JUN 17) BUN 9(JUN 17) Glucose Random H 309(JUN 17) Ca L 8.1(JUN 17) PT 14.5(JUN 17) INR 1.10(JUN 17) PTT 32.3(JUN 17) Alk Phos: 128 06/17/16 01:07:19 A/G [...] medial malleolus of the distal tibia. ASSESSMENT & PLAN: 51 yo HM presents with: * [...]
--- OUTSIDE RECORDS SUMMARY | 2019-05-19 11:04 | XMS REPORT | Summary of Care ---
Author Author [facility] Organization [facility] Address Unknown Phone Unavailable [address]counter [address]([place]) [id number] Date(s): 01/20/17 - 01/30/17 [facility] [address] [place] [address]- Discharge Disposition: Home or Self Care Attending Physician: Nivees Patel MD Admitting Physician: Nieves Patel MD Vital Signs 1 2 3 Most recent to oldest [Reference Range]: 162.56 cm (01/20/17 8:23 PM) 165.1 cm (01/20/17 2:51 PM) Height 97.5 DegF (01/30/17 12:00 PM) 98.2 DegF (01/30/17 8:00 AM) 98.2 DegF (01/30/17 4:00 AM) Temperature Oral [96.4-99.1 DegF] 113/75 mmHg (01/30/17 12:00 PM) 128/93 mmHg (01/30/17 8:00 AM) 140/87 mmHg (01/30/17 4:00 AM) Blood Pressure [90-140/60-90 mmHg] 20 BRMIN (01/30/17 12:00 PM) 20 BRMIN (01/30/17 8:00 AM) 18 BRMIN (01/30/17 4:00 AM) Respiratory Rate [14-20 BRMIN] 96 bpm (01/30/17 12:00 PM) 88 bpm (01/30/17 8:00 AM) 81 bpm (01/30/17 4:00 AM) Peripheral Pulse Rate [60-100 bpm] 116.932 kg (01/20/17 8:23 PM) 113.636 kg (01/20/17 2:51 PM) Weight 44.25 m2 (01/20/17 8:23 PM) 41.69 m2 (01/20/17 2:51 PM) Body Mass Index Problem List Condition Effective Dates Status Health Status Informant Diabetes(Confirmed) Active Hypertension(Confirm Resolved ed) MRSA(Confirmed)1, 2, 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 2MRSA from the abscess on the Right foot 3Problem added by Discern Expert. 4Problem added by Discern Expert. Allergies, Adverse Reactions, Alerts Substance Reaction Severity Status penicillins Active Medications acetaminophen 650 mg, 2 tab, Route: PO, Drug form: TAB, Q4H, Dosing Weight 113.636, kg, PRN Pa in 1-3/Temp > 100.4 F, Start date: 01/20/17 18:23: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, Duration: 30 day, Stop date: 02/19/17 18:22:00 CDT Notes: Do not exceed 4 gm/day. (Same as: Tylenol) Start Date: 01/20/17 Stop Date: 01/30/17 Status: Discontinued acetaminophen-hydrocodone 325 mg-5 mg oral tablet 1 tab, Route: PO, Drug Form: TAB, Dosing Weight 113.636, kg, Q4H, PRN Pain Score 4-6, Start date: 01/20/17 18:23: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, Duration: 30 day, Stop date: 02/19/17 1 8:22:00 CDT Notes: (Same as: [place] 325/5) Do not exceed 4gm/day of acetaminophen. Start Date: 01/20/17 Stop Date: 01/30/17 Status: Discontinued albuterol-ipratropium 2.5-0.5 mg inhalation solution 3 mL, Route: NEB, Dosing Weight 116.932, kg, ONCE, STAT, Start date: 01/24/17 7: 23:00 CDT, Stop date: 01/24/17 7:23:00 CDT Start Date: 01/24/17 Stop Date: 01/24/17 Status: Discontinued amLODIPine 10 mg, 2 tab, Route: PO, Drug form: TAB, Daily, Dosing Weight 113.636, kg, Start date: 01/21/17 9:00:00 CDT, Duration: 30 day, Stop date: 02/19/17 9:00:00 CDT Notes: (Same as: Jennifer) Start Date: 01/21/17 Stop Date: 01/30/17 Status: Discontinued ANES acetaminophen 1,000 mg, Route: PO, Drug form: TAB, ONCE, Dosing Weight 116.932, kg, PRN Pain S core 1-3, Start date: 01/24/17 9:14:00 CDT, Duration: 1 doses or times, Stop jose g e: Limited # of times Start Date: 01/24/17 Stop Date: 01/24/17 Status: Discontinued ANES albuterol 0.083% inhalation solution 2.49 mg, Route: NEB, Q20Min, Dosing Weight 116.932, kg, PRN Wheezing, Priority: STAT, Start date: 01/24/17 9:14:00 CDT, Duration: 30 day, Stop date: 02/23/17 9: 13:00 CDT Start Date: 01/24/17 Stop Date: 01/24/17 Status: Discontinued ANES diphenhydrAMINE 12.5 mg, Route: IVP, Drug form: INJ, Q6H, Dosing Weight 116.932, kg, PRN Itching , Start date: 01/24/17 9:14:00 CDT, Duration: 30 day, Stop date: 02/23/17 9:13:0 0 CDT Start Date: 01/24/17 Stop Date: 01/24/17 Status: Discontinued ANES esmolol 10 mg, Route: IVP, Q5Min, Dosing Weight 116.932, kg, PRN Other -See Comment, Sta rt date: 01/24/17 9:14:00 CDT, Duration: 5 doses or times, Stop date: Limited # of times Start Date: 01/24/17 Stop Date: 01/24/17 Status: Discontinued ANES flumazenil 0.2 mg, Route: IVP, PRN, Dosing Weight 116.932, kg, PRN Benzodiazepine Reversal, Initial dose, Start date: 01/24/17 9:14:00 CDT, Duration: 30 day, Stop date: 9:13:00 CDT Start Date: 01/24/17 Stop Date: 01/24/17 Status: Discontinued ANES hydrALAZINE 10 mg, Route: IVP, Q20Min, Dosing Weight 116.932, kg, PRN Elevated BP, Start jose g e: 01/24/17 9:14:00 CDT, Duration: 2 doses or times, Stop date: Limited # of mehul es Start Date: 01/24/17 Stop Date: 01/24/17 Status: Discontinued ANES HYDROmorphone 0.5 mg, Route: IVP, Q5Min, Dosing Weight 116.932, kg, PRN Pain Score 7-10, Start date: 01/24/17 9:14:00 CDT, Duration: 4 doses or times, Stop date: Limited # of times Start Date: 01/24/17 Stop Date: 01/24/17 Status: Discontinued ANES labetalol 10 mg, Route: IVP, Q5Min, Dosing Weight 116.932, kg, PRN Elevated BP, Start date : 01/24/17 9:14:00 CDT, Duration: 5 doses or times, Stop date: Limited # of time s Start Date: 01/24/17 Stop Date: 01/24/17 Status: Discontinued ANES meperidine 12.5 mg, Route: IVP, Q30Min, Dosing Weight 116.932, kg, PRN Other -See Comment, For shivering, Start date: 01/24/17 9:14:00 CDT, Duration: 2 doses or times, Sto p date: Limited # of times Start Date: 01/24/17 Stop Date: 01/24/17 Status: Discontinued ANES naloxone 0.4 mg, Route: IVP, Q2MIN, Dosing Weight 116.932, kg, PRN Narcotic Reversal, Sta rt date: 01/24/17 9:14:00 CDT, Duration: 8 doses or times, Stop date: Limited # of times Start Date: 01/24/17 Stop Date: 01/24/17 Status: Discontinued ANES ondansetron 4 mg, Route: IVP, ONCE, Dosing Weight 116.932, kg, PRN Nausea & Vomiting, Start date: 01/24/17 9:14:00 CDT Start Date: 01/24/17 Stop Date: 01/24/17 Status: Discontinued ANES oxyCODONE 5 mg, Route: PO, Drug form: TAB, Q4H, Dosing Weight 116.932, kg, PRN Pain Score 4-6, Start date: 01/24/17 9:14:00 CDT, Duration: 30 day, Stop date: 02/23/17 9:1 3:00 CDT Start Date: 01/24/17 Stop Date: 01/24/17 Status: Discontinued ANES promethazine 6.25 mg, Route: IVPB, ONCE, Dosing Weight 116.932, kg, PRN Nausea & Vomiting, Start date: 01/24/17 9:14:00 CDT Start Date: 01/24/17 Stop Date: 01/24/17 Status: Discontinued cefepime + sodium chloride 0.9% INJ 100 mL 2 gm, Route: IVPB, ABXQ8H, Dosing Weight 116.932, kg, (CrCl >/=50 ml/min, AIR MARSHAL infection or neutropenic fever), Start date: 01/20/17 2:00: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, Duration: 30 day, Stop date: 02/18/17 18:00:00 CDT Notes: (Same as: Maxipime) MEDICATION WASTE Product Size: 2000 mgProduc t Wasted: ___ mg Start Date: 01/20/17 Stop Date: 01/26/17 Status: Discontinued cefepime + sodium chloride 0.9% INJ 100 mL 1 gm, Route: IVPB, ABXQ8H, Dosing Weight 113.636, kg, (CrCl >/=50 ml/min), Start date: 01/20/17 19:00: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, Duration: 30 day, Stop date: 02/19/17 11:00:00 CDT Notes: (Same As: Maxipime) MEDICATION WASTE Product Size: 1000 mgProduc t Wasted: ___ mg Start Date: 01/20/17 Stop Date: 01/20/17 Status: Discontinued cefTRIAXone + sodium chloride 0.9% INJ 100 mL 2 gm, Route: IVPB, [id number], Dosing Weight 116.932, kg, Start date: 01/26/17 17:0 0:00 CDT, Duration: 21 day, Stop date: 02/15/17 17:00:00 CDT Notes: (Same As: Rocephin).Use with 100 mL NS and infuse over 30 min MEDICA TION WASTE Product Size: 2000 mgProduct Wasted: ___ mg Start Date: 01/26/17 Stop Date: 01/30/17 Status: Discontinued cefTRIAXone 2 g injection 2 gm, IV, Q24H, X 18 day, # 18 bag, 0 Refill(s), other Start Date: 01/30/17 Stop Date: 02/17/17 Status: Ordered clindamycin 600 mg, 50 mL, Route: IVPB, Drug form: INJ, ABXQ8H, Dosing Weight 116.932, kg, S tart date: 01/20/17 22:00: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, Duration: 30 day, Stop date: 02/19/17 14:00:00 CDT Start Date: 01/20/17 Stop Date: 01/26/17 Status: Discontinued Dextrose 50% Syringe 12.5 gm, 25 mL, Route: IVP, Drug Form: INJ, Dosing Weight 113.636, kg, PRN, PRN Blood Glucose Results, Start date: 01/20/17 18:25: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, Duration: 30 day, Stop date: 02/19/17 19:24:00 CDT Start Date: 01/20/17 Stop Date: 01/21/17 Status: Discontinued Dextrose 50% Syringe 25 gm, 50 mL, Route: IVP, Drug Form: INJ, Dosing Weight 113.636, kg, PRN, PRN Bl ood Glucose Results, Start date: 01/20/17 18:25: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, Duration: 30 day, Stop d ate: 02/19/17 19:24:00 CDT Start Date: 01/20/17 Stop Date: 01/21/17 Status: Discontinued Dextrose 50% Syringe 25 gm, 50 mL, Route: IVP, Drug Form: INJ, Dosing Weight 116.932, kg, PRN, PRN Bl ood Glucose Results, Start date: 01/21/17 10:37:00 CDT, Duration: 30 day, Stop d ate: 02/20/17 10:36:00 CDT Start Date: 01/21/17 Stop Date: 01/30/17 Status: Discontinued Dextrose 50% Syringe 12.5 gm, 25 mL, Route: IVP, Drug Form: INJ, Dosing Weight 116.932, kg, PRN, PRN Blood Glucose Results, Start date: 01/21/17 10:37:00 CDT, Duration: 30 day, Stop date: 02/20/17 10:36:00 CDT Start Date: 01/21/17 Stop Date: 01/30/17 Status: Discontinued diphenhydrAMINE (ANES) Route: IV, Drug form: INJ, ONCE, Stop date: 01/24/17 9:06:00 CDT Start Date: 01/24/17 Stop Date: 01/24/17 Status: Completed famotidine (ANES) Route: IV, Drug form: INJ, ONCE, Stop date: 01/24/17 9:01:00 CDT Start Date: 01/24/17 Stop Date: 01/24/17 Status: Completed fentaNYL (ANES) Route: IV, Drug form: INJ, ONCE, Stop date: 01/24/17 9:01:00 CDT Start Date: 01/24/17 Stop Date: 01/24/17 Status: Completed glucagon 1 mg, Route: IM, Drug form: PDR/INJ, PRN, Dosing Weight 113.636, kg, PRN Blood G lucose Results, Start date: 01/20/17 18:25: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, Duration: 30 day, Stop date: 02/19/17 19:24:00 CDT Start Date: 01/20/17 Stop Date: 01/21/17 Status: Discontinued glucagon 1 mg, Route: IM, Drug form: PDR/INJ, PRN, Dosing Weight 116.932, kg, PRN Blood G lucose Results, Start date: 01/21/17 10:37:00 CDT, Duration: 30 day, Stop date: 02/20/17 10:36:00 CDT Start Date: 01/21/17 Stop Date: 01/30/17 Status: Discontinued insulin aspart 2 unit, 0.02 mL, Route: SUB-Q, Drug form: SOLN, TID-Before Meals, Dosing Weight 113.636, kg, PRN Blood Glucose Results, Start date: 01/20/17 18:25: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, Durat ion: 30 day, Stop date: 02/19/17 18:24:00 CDT Notes: Roll in palms of hands gently; Do not shake vigorously. (Same as: NovoSRAVAN G)"single patient use only"WASTE: F/P - Black; E - Municipal Trash Bin Stable f or 28 days at room temperature.Expires in days from Date Start Date: 01/20/17 Stop Date: 01/21/17 Status: Discontinued insulin aspart 1 unit, 0.01 mL, Route: SUB-Q, Drug form: SOLN, TID-Before Meals, Dosing Weight 113.636, kg, PRN Blood Glucose Results, Start date: 01/20/17 18:25: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, Durat ion: 30 day, Stop date: 02/19/17 18:24:00 CDT Notes: Roll in palms of hands gently; Do not shake vigorously. (Same as: NovoSRAVAN G)"single patient use only"WASTE: F/P - Black; E - Municipal Trash Bin Stable f or 28 days at room temperature.Expires in days from Date Start Date: 01/20/17 Stop Date: 01/21/17 Status: Discontinued insulin aspart 3 unit, 0.03 mL, Route: SUB-Q, Drug form: SOLN, TID-Before Meals, Dosing Weight 113.636, kg, PRN Blood Glucose Results, Start date: 01/20/17 18:25: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, Durat ion: 30 day, Stop date: 02/19/17 18:24:00 CDT Notes: Roll in palms of hands gently; Do not shake vigorously. (Same as: NovoSRAVAN G)"single patient use only"WASTE: F/P - Black; E - Municipal Trash Bin Stable f or 28 days at room temperature.Expires in days from Date Start Date: 01/20/17 Stop Date: 01/21/17 Status: Discontinued insulin aspart 4 unit, 0.04 mL, Route: SUB-Q, Drug form: SOLN, TID-Before Meals, Dosing Weight 113.636, kg, PRN Blood Glucose Results, Start date: 01/20/17 18:25: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, Durat ion: 30 day, Stop date: 02/19/17 18:24:00 CDT Notes: Roll in palms of hands gently; Do not shake vigorously. (Same as: Lilian Syed)"single patient use only"WASTE: F/P - Black; E - Municipal Trash Bin Stable f or 28 days at room temperature.Expires in days from Date Start Date: 01/20/17 Stop Date: 01/21/17 Status: Discontinued insulin aspart 5 unit, 0.05 mL, Route: SUB-Q, Drug form: SOLN, TID-Before Meals, Dosing Weight 113.636, kg, PRN Blood Glucose Results, Start date: 01/20/17 18:25: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, Durat ion: 30 day, Stop date: 02/19/17 18:24:00 CDT Notes: Roll in palms of hands gently; Do not shake vigorously. (Same as: Lilian Syed)"single patient use only"WASTE: F/P - Black; E - Municipal Trash Bin Stable f or 28 days at room temperature.Expires in days from Date Start Date: 01/20/17 Stop Date: 01/21/17 Status: Discontinued insulin aspart 4 unit, 0.04 mL, Route: SUB-Q, Drug form: SOLN, Bedtime, Dosing Weight 116.932, kg, PRN Blood Glucose Results, Start date: 01/21/17 10:37:00 CDT, Duration: 30 d ay, Stop date: 02/20/17 10:36:00 CDT Notes: Roll in palms of hands gently; Do not shake vigorously. (Same as: Lilian Syed)"single patient use only"WASTE: F/P - Black; E - Municipal Trash Bin Stable f or 28 days at room temperature.Expires in days from Date Start Date: 01/21/17 Stop Date: 01/30/17 Status: Discontinued insulin aspart 3 unit, 0.03 mL, Route: SUB-Q, Drug form: SOLN, Bedtime, Dosing Weight 116.932, kg, PRN Blood Glucose Results, Start date: 01/21/17 10:37:00 CDT, Duration: 30 d ay, Stop date: 02/20/17 10:36:00 CDT Notes: Roll in palms of hands gently; Do not shake vigorously. (Same as: Lilian Syed)"single patient use only"WASTE: F/P - Black; E - Municipal Trash Bin Stable f or 28 days at room temperature.Expires in days from Date Start Date: 01/21/17 Stop Date: 01/30/17 Status: Discontinued insulin aspart 2 unit, 0.02 mL, Route: SUB-Q, Drug form: SOLN, Bedtime, Dosing Weight 116.932, kg, PRN Blood Glucose Results, Start date: 01/21/17 10:37:00 CDT, Duration: 30 d ay, Stop date: 02/20/17 10:36:00 CDT Notes: Roll in palms of hands gently; Do not shake vigorously. (Same as: Lilian Syed)"single patient use only"WASTE: F/P - Black; E - Municipal Trash Bin Stable f or 28 days at room temperature.Expires in days from Date Start Date: 01/21/17 Stop Date: 01/30/17 Status: Discontinued insulin aspart 1 unit, 0.01 mL, Route: SUB-Q, Drug form: SOLN, Bedtime, Dosing Weight 116.932, kg, PRN Blood Glucose Results, Start date: 01/21/17 10:37:00 CDT, Duration: 30 d ay, Stop date: 02/20/17 10:36:00 CDT Notes: Roll in palms of hands gently; Do not shake vigorously. (Same as: Lilian Syed)"single patient use only"WASTE: F/P - Black; E - Municipal Trash Bin Stable f or 28 days at room temperature.Expires in days from Date Start Date: 01/21/17 Stop Date: 01/30/17 Status: Discontinued insulin aspart 10 unit, 0.1 mL, Route: SUB-Q, Drug form: SOLN, TID-Before Meals, Dosing Weight 116.932, kg, PRN Blood Glucose Results, Start date: 01/21/17 10:37:00 CDT, Durat ion: 30 day, Stop date: 02/20/17 10:36:00 CDT Notes: Roll in palms of hands gently; Do not shake vigorously. (Same as: Lilian Syed)"single patient use only"WASTE: F/P - Black; E - Municipal Trash Bin Stable f or 28 days at room temperature.Expires in days from Date Start Date: 01/21/17 Stop Date: 01/30/17 Status: Discontinued insulin aspart 8 unit, 0.08 mL, Route: SUB-Q, Drug form: SOLN, TID-Before Meals, Dosing Weight 116.932, kg, PRN Blood Glucose Results, Start date: 01/21/17 10:37:00 CDT, Durat ion: 30 day, Stop date: 02/20/17 10:36:00 CDT Notes: Roll in palms of hands gently; Do not shake vigorously. (Same as: Lilian Syed)"single patient use only"WASTE: F/P - Black; E - Municipal Trash Bin Stable f or 28 days at room temperature.Expires in days from Date Start Date: 01/21/17 Stop Date: 01/30/17 Status: Discontinued insulin aspart 4 unit, 0.04 mL, Route: SUB-Q, Drug form: SOLN, TID-Before Meals, Dosing Weight 116.932, kg, PRN Blood Glucose Results, Start date: 01/21/17 10:37:00 CDT, Durat ion: 30 day, Stop date: 02/20/17 10:36:00 CDT Notes: Roll in palms of hands gently; Do not shake vigorously. (Same as: Lilian Syed)"single patient use only"WASTE: F/P - Black; E - Municipal Trash Bin Stable f or 28 days at room temperature.Expires in days from Date Start Date: 01/21/17 Stop Date: 01/30/17 Status: Discontinued insulin aspart 6 unit, 0.06 mL, Route: SUB-Q, Drug form: SOLN, TID-Before Meals, Dosing Weight 116.932, kg, PRN Blood Glucose Results, Start date: 01/21/17 10:37:00 CDT, Durat ion: 30 day, Stop date: 02/20/17 10:36:00 CDT Notes: Roll in palms of hands gently; Do not shake vigorously. (Same as: NovoSRAVAN G)"single patient use only"WASTE: F/P - Black; E - Municipal Trash Bin Stable f or 28 days at room temperature.Expires in days from Date Start Date: 01/21/17 Stop Date: 01/30/17 Status: Discontinued insulin aspart 2 unit, 0.02 mL, Route: SUB-Q, Drug form: SOLN, TID-Before Meals, Dosing Weight 116.932, kg, PRN Blood Glucose Results, Start date: 01/21/17 10:37:00 CDT, Durat ion: 30 day, Stop date: 02/20/17 10:36:00 CDT Notes: Roll in palms of hands gently; Do not shake vigorously. (Same as: NovoSRAVAN G)"single patient use only"WASTE: F/P - Black; E - Municipal Trash Bin Stable f or 28 days at room temperature.Expires in days from Date Start Date: 01/21/17 Stop Date: 01/30/17 Status: Discontinued insulin isophane (NPH) 100 units/mL human recombinant subcutaneous suspension 30 unit, SUB-Q, BID, # 20 mL, 3 Refill(s) Start Date: 01/29/17 Stop Date: 05/29/17 Status: Ordered insulin isophane-NPH 10 unit, 0.1 mL, Route: SUB-Q, Drug form: INJ, BID, Dosing Weight 113.636, kg, S tart date: 01/21/17 9:00:00 CDT, Duration: 30 day, Stop date: 02/19/17 17:00:00 CDT Notes: Roll in palms of hands gently; Do not shake vigorously. (Same as: NovoLI N N, Humulin N)Do not hold insulin without contacting prescriber"single patient use only"WASTE: F/P - Black; E - Municipal Trash Bin Stable for 14 days at room temperatureExpires in days from Date Start Date: 01/21/17 Stop Date: 01/21/17 Status: Discontinued insulin isophane-NPH 30 unit, 0.3 mL, Route: SUB-Q, Drug form: INJ, BID, Dosing Weight 113.636, kg, S tart date: 01/24/17 9:00:00 CDT, Duration: 30 day, Stop date: 02/22/17 17:00:00 CDT Notes: Roll in palms of hands gently; Do not shake vigorously. (Same as: NovoLI N N, Humulin N)Do not hold insulin without contacting prescriber"single patient use only"WASTE: F/P - Black; E - Municipal Trash Bin Stable for 14 days at room temperatureExpires in days from Date Start Date: 01/24/17 Stop Date: 01/30/17 Status: Discontinued insulin isophane-NPH 25 unit, 0.25 mL, Route: SUB-Q, Drug form: INJ, BID, Dosing Weight 113.636, kg, Start date: 01/21/17 17:00:00 CDT, Duration: 30 day, Stop date: 02/20/17 9:00:00 CDT Notes: Roll in palms of hands gently; Do not shake vigorously. (Same as: NovoLI N N, Humulin N)Do not hold insulin without contacting prescriber"single patient use only"WASTE: F/P - Black; E - Municipal Trash Bin Stable for 14 days at room temperatureExpires in days from Date Start Date: 01/21/17 Stop Date: 01/23/17 Status: Discontinued Insulin regular 3 unit, Route: IVP, ONCE, Dosing Weight 116.932, kg, Start date: 01/24/17 7:48:0 0 CDT, Stop date: 01/24/17 7:48:00 CDT Start Date: 01/24/17 Stop Date: 01/24/17 Status: Completed Insulin regular 3 unit, Route: IVP, ONCE, Dosing Weight 116.932, kg, Start date: 01/24/17 7:12:0 0 CDT, Stop date: 01/24/17 7:12:00 CDT Start Date: 01/24/17 Stop Date: 01/24/17 Status: Completed Lactated Ringers Injection IV 1000 mL 1,000 mL, Rate: 125 ml/hr, Infuse over: 8 hr, Route: IV, Dosing Weight 116.932 k g, Total Volume: 1,000, Start date: 01/24/17 9:14:00 CDT, Duration: 30 day, Stop date: 02/23/17 9:13:00 CDT Start Date: 01/24/17 Stop Date: 01/24/17 Status: Discontinued Lactated Ringers Injection IV 1000 mL 1,000 mL, Rate: 25 ml/hr, Infuse over: 40 hr, Route: IV, Dosing Weight 116.932 k g, Total Volume: 1,000, Start date: 01/24/17 7:23:00 CDT, Duration: 30 day, Stop date: 02/23/17 7:22:00 CDT Start Date: 01/24/17 Stop Date: 01/24/17 Status: Discontinued Lovenox 40 mg, 0.4 mL, Route: SUB-Q, Drug form: INJ, [id number], Dosing Weight 113.636, kg , Start date: 01/20/17 19:00: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, Duration: 30 day, Stop date: 02/18/17 19:00 :00 CDT Notes: (Same as: Lovenox) Start Date: 01/20/17 Stop Date: 01/30/17 Status: Discontinued LR 1000 mL INJ (ANES) Route: IV, Total Volume: 1,000, Start date: 01/24/17 7:15:00 CDT, Stop date: 8:15:00 CDT Start Date: 01/24/17 Stop Date: 01/24/17 Status: Completed metFORMIN 1000 mg oral tablet 1,000 mg, PO, BID, # 180 tab, 3 Refill(s) Start Date: 01/29/17 Stop Date: 01/24/18 Status: Ordered metoclopramide (ANES) Route: IV, Drug form: INJ, ONCE, Stop date: 01/24/17 9:01:00 CDT Start Date: 01/24/17 Stop Date: 01/24/17 Status: Completed midazolam (ANES) Route: IV, Drug form: SOLN, ONCE, Stop date: 01/24/17 8:46:00 CDT Start Date: 01/24/17 Stop Date: 01/24/17 Status: Completed ondansetron 4 mg, 2 mL, Route: IVP, Drug form: INJ, Q6H, Dosing Weight 113.636, kg, PRN Naus ea & Vomiting, Start date: 01/20/17 18:23: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, Duration: 30 day, Stop date: 02/19/17 18:22:00 CDT Notes: (Same as: Deon) MEDICATION WASTE Product Size: 4 mgProduct Was sonia: ___ mg Start Date: 01/20/17 Stop Date: 01/30/17 Status: Discontinued ondansetron (ANES) Route: IV, Drug form: INJ, ONCE, Stop date: 01/24/17 9:01:00 CDT Start Date: 01/24/17 Stop Date: 01/24/17 Status: Completed pneumococcal 13-valent vaccine 0.5 mL, Route: IM, Drug Form: INJ, Daily, Start date: 01/25/17 9:00:00 CDT, Stop date: 01/25/17 15:00:00 CDT Notes: Lightly roll vial (DO NOT SHAKE) before administration. (Same as: Prevna r 13) Start Date: 01/25/17 Stop Date: 01/25/17 Status: Completed pneumococcal 23-valent vaccine 0.5 mL, Route: IM, Daily, Start date: 01/21/17 9:00:00 CDT, Duration: 1 doses or times, Stop date: 01/21/17 9:00:00 CDT Start Date: 01/21/17 Stop Date: 01/20/17 Status: Canceled Saline Flush 0.9% 10 mL, Route: IVP, Drug Form: INJ, Dosing Weight 113.636, kg, PRN, PRN Line Flus h, Start date: 01/20/17 14:55: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, Duration: 30 day, Stop date: 02/19/17 15:5 4:00 CDT Notes: (Same as: BD Posiflush) Start Date: 01/20/17 Stop Date: 01/20/17 Status: Discontinued sodium chloride 0.9% 1000 ml INJ 1,000 mL 1,000 mL, Rate: 100 ml/hr, Infuse over: 10 hr, Route: IV, Dosing Weight 113.636 kg, Total Volume: 1,000, Start date: 01/20/17 18:26: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, Duration: 30 day, St op date: 02/19/17 18:25:00 CDT Start Date: 01/20/17 Stop Date: 01/21/17 Status: Discontinued Sodium Chloride 0.9% IV (Sodium Chloride 0.9% (Bolus) IV) 3,450 mL, 2,000 ml/hr, Route: IV, ONCE, Priority: STAT, Dosing Weight 115 kg, St art date: 01/20/17 14:55: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, Duration: 1 doses or times, Stop date: 01/20/17 14:55: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 Start Date: 01/20/17 Stop Date: 01/20/17 Status: Completed Tylenol 650 mg, Route: PO, Drug form: TAB, ONCE, Dosing Weight 113.636, kg, Priority: ST AT, Start date: 01/20/17 14:56: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, Stop date: 01/20/17 14:56: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 Start Date: 01/20/17 Stop Date: 01/20/17 Status: Completed Tylenol with Codeine #3 oral tablet 1 tab, PO, Q6H, PRN Pain, X 5 day, # 20 tab, 0 Refill(s) Start Date: 01/29/17 Stop Date: 02/03/17 Status: Ordered vancomycin 2,000 mg, Route: IVPB, ONCE, Dosing Weight 115, kg, TIME CRITICAL MEDICATION, Pr iority: STAT, Start date: 01/20/17 14:55: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, Stop date: 01/20/17 14:55:00 CS T Start Date: 01/20/17 Stop Date: 01/20/17 Status: Completed Results ELECTROLYTES 1 2 3 Most recent to oldest [Reference Range]: 135 mEq/L (01/27/17 6:15 AM) 136 mEq/L (01/24/17 4:32 AM) 136 mEq/L (01/23/17 5:22 AM) Sodium Lvl [135-145 mEq/L] 4.0 mEq/L (01/27/17 6:15 AM) 3.8 mEq/L (01/24/17 4:32 AM) 3.6 mEq/L (01/23/17 5:22 AM) Potassium Lvl [3.5-5.1 mEq/L] 99 mEq/L (01/27/17 6:15 AM) 99 mEq/L (01/24/17 4:32 AM) 98 mEq/L (01/23/17 5:22 AM) Chloride Lvl [95-109 mEq/L] 28 mEq/L (01/27/17 6:15 AM) 32 mEq/L (01/24/17 4:32 AM) 28 mEq/L (01/23/17 5:22 AM) CO2 [24-32 mEq/L] 12.0 mEq/L (01/27/17 6:15 AM) 8.8 mEq/L *LOW* (01/24/17 4:32 AM) 13.6 mEq/L (01/23/17 5:22 AM) AGAP [10.0-20.0 mEq/L] CHEM PANEL 1 2 3 Most recent to oldest [Reference Range]: 0.73 mg/dL (01/27/17 6:15 AM) 0.85 mg/dL (01/24/17 4:32 AM) 0.90 mg/dL (01/23/17 5:22 AM) Creatinine Lvl [0.50-1.40 mg/dL] 107 mL/min/1.73m2 1 *NA* (01/27/17 6:15 AM) 100 mL/min/1.73m2 2 *NA* (01/24/17 4:32 AM) 98 mL/min/1.73m2 3 *NA* (01/23/17 5:22 AM) eGFR 13 mg/dL (01/27/17 6:15 AM) 15 mg/dL (01/24/17 4:32 AM) 15 mg/dL (01/23/17 5:22 AM) BUN [7-22 mg/dL] 13 (01/20/17 3:15 PM) B/C Ratio [6-25] 193 mg/dL *HI* (01/27/17 6:15 AM) 175 mg/dL *HI* (01/24/17 4:32 AM) 215 mg/dL *HI* (01/23/17 5:22 AM) Glucose Lvl [70-99 mg/dL] 7.9 g/dL (01/20/17 3:15 PM) Total Protein [6.4-8.4 g/dL] 2.7 g/dL *LOW* (01/20/17 3:15 PM) Albumin Lvl [3.5-5.0 g/dL] 5.2 g/dL *HI* (01/20/17 3:15 PM) Globulin [2.7-4.2 g/dL] 0.5 *LOW* (01/20/17 3:15 PM) A/G Ratio [0.7-1.6] 8.5 mg/dL (01/27/17 6:15 AM) 8.7 mg/dL (01/24/17 4:32 AM) 8.6 mg/dL (01/23/17 5:22 AM) Calcium Lvl [8.5-10.5 mg/dL] 34 unit/L (01/20/17 3:15 PM) ALT [0-65 unit/L] 52 unit/L *HI* (01/20/17 3:15 PM) AST [0-37 unit/L] 92 unit/L (01/20/17 3:15 PM) Alk Phos [39-136 unit/L] 1.1 mg/dL (01/20/17 3:15 PM) Bili Total [0.2-1.3 mg/dL] 1.2 mMol/L (01/21/17 6:19 AM) 1.5 mMol/L (01/20/17 7:09 PM) 2.3 mMol/L *HI* (01/20/17 3:15 PM) Lactic Acid Lvl [0.5-2.2 mMol/L] 0.28 ng/mL *HI* (01/20/17 3:15 PM) Procalcitonin Lvl [0.00-0.10 ng/mL] 1Result Comment: The [...] be mul tiplied by the estimated BMI. CARDIAC ENZYMES 1 2 3 Most recent to oldest [Reference Range]: 122 unit/L (01/20/17 3:15 PM) Total CK [12-191 unit/L] 0.6 ng/mL (01/20/17 3:15 PM) CK MB [0.5-3.6 ng/mL] 0.5 (01/20/17 3:15 PM) CK MB Index [0.0-2.5] <0.02 ng/mL (01/20/17 3:15 PM) Troponin-I [0.00-0.40 ng/mL] URINE AND STOOL 1 2 3 Most recent to oldest [Reference Range]: Clear (01/20/17 8:04 PM) UA Turbidity [Clear] Ltyellow *NA* (01/20/17 8:04 PM) UA Color 6.0 (01/20/17 8:04 PM) UA pH [5.0-8.0] 1.007 (01/20/17 8:04 PM) UA Spec Grav [<=1.030] 500 mg/dL *ABN* (01/20/17 8:04 PM) UA Glucose [Negative mg/dL] Large *ABN* (01/20/17 8:04 PM) UA Blood [Negative] Negative mg/dL *NA* (01/20/17 8:04 PM) UA Ketones [Negative mg/dL] Negative mg/dL (01/20/17 8:04 PM) UA Protein [Negative mg/dL] <=1.0 mg/dL *NA* (01/20/17 8:04 PM) UA Urobilinogen [0.1-1.0 mg/dL] Negative *NA* (01/20/17 8:04 PM) UA Bili [Negative] Negative (01/20/17 8:04 PM) UA Leuk Est [Negative] Negative (01/20/17 8:04 PM) UA Nitrite [Negative] <1 /HPF (01/20/17 8:04 PM) UA WBC [0-5 /HPF] 11 /HPF *HI* (01/20/17 8:04 PM) UA RBC [0-2 /HPF] Occasional /HPF *NA* (01/20/17 8:04 PM) UA Bacteria [None Seen /HPF] None Seen *NA* (01/20/17 8:04 PM) UA Sq Epi Few /LPF *NA* (01/20/17 8:04 PM) UA Mucus [None Seen /LPF] Occasional /HPF *ABN* (01/20/17 8:04 PM) UA [place] Yeast [None Seen /HPF] IMMUNOLOGY 1 2 3 Most recent to oldest [Reference Range]: 130.0 mg/L *HI* (01/21/17 6:19 AM) CRP [<=2.9 mg/L] HEMATOLOGY 1 2 3 Most recent to oldest [Reference Range]: 5.7 K/CMM (01/27/17 6:15 AM) 4.7 K/CMM (01/24/17 4:32 AM) 5.1 K/CMM (01/23/17 5:22 AM) WBC [3.7-10.4 K/CMM] 3.43 M/CMM *LOW* (01/27/17 6:15 AM) 4.27 M/CMM *LOW* (01/24/17 4:32 AM) 4.04 M/CMM *LOW* (01/23/17 5:22 AM) RBC [4.70-6.10 M/CMM] 10.5 g/dL *LOW* (01/27/17 6:15 AM) 13.1 g/dL *LOW* (01/24/17 4:32 AM) 12.5 g/dL *LOW* (01/23/17 5:22 AM) Hgb [14.0-18.0 g/dL] 30.5 % *LOW* (01/27/17 6:15 AM) 38.0 % *LOW* (01/24/17 4:32 AM) 35.9 % *LOW* (01/23/17 5:22 AM) Hct [42.0-54.0 %] 88.8 fL (01/27/17 6:15 AM) 89.0 fL (01/24/17 4:32 AM) 88.9 fL (01/23/17 5:22 AM) MCV [80.0-94.0 fL] 30.7 pg (01/27/17 6:15 AM) 30.8 pg (01/24/17 4:32 AM) 31.0 pg (01/23/17 5:22 AM) MCH [27.0-31.0 pg] 34.6 g/dL (01/27/17 6:15 AM) 34.6 g/dL (01/24/17 4:32 AM) 34.9 g/dL (01/23/17 5:22 AM) MCHC [32.0-36.0 g/dL] 14.8 % *HI* (01/27/17 6:15 AM) 14.9 % *HI* (01/24/17 4:32 AM) 15.1 % *HI* (01/23/17 5:22 AM) RDW [11.5-14.5 %] 250 K/CMM (01/27/17 6:15 AM) 174 K/CMM (01/24/17 4:32 AM) 155 K/CMM (01/23/17 5:22 AM) Platelet [133-450 K/CMM] 10.1 fL (01/27/17 6:15 AM) 10.0 fL (01/24/17 4:32 AM) 10.3 fL (01/23/17 5:22 AM) MPV [7.4-10.4 fL] 54.9 % (01/27/17 6:15 AM) 53.5 % (01/24/17 4:32 AM) 56.0 % (01/23/17 5:22 AM) Segs [45.0-75.0 %] 29.8 % (01/27/17 6:15 AM) 27.9 % (01/24/17 4:32 AM) 24.8 % (01/23/17 5:22 AM) Lymphocytes [20.0-40.0 %] 9.0 % (01/27/17 6:15 AM) 10.5 % (01/24/17 4:32 AM) 12.9 % *HI* (01/23/17 5:22 AM) Monocytes [2.0-12.0 %] 5.3 % *HI* (01/27/17 6:15 AM) 6.6 % *HI* (01/24/17 4:32 AM) 5.4 % *HI* (01/23/17 5:22 AM) Eosinophils [0.0-4.0 %] 1.0 % (01/27/17 6:15 AM) 1.5 % *HI* (01/24/17 4:32 AM) 0.9 % (01/23/17 5:22 AM) Basophils [0.0-1.0 %] 3.1 K/CMM (01/27/17 6:15 AM) 2.5 K/CMM (01/24/17 4:32 AM) 2.9 K/CMM (01/23/17 5:22 AM) Segs-Bands # [1.5-8.1 K/CMM] 1.7 K/CMM (01/27/17 6:15 AM) 1.3 K/CMM (01/24/17 4:32 AM) 1.3 K/CMM (01/23/17 5:22 AM) Lymphocytes # [1.0-5.5 K/CMM] 0.5 K/CMM (01/27/17 6:15 AM) 0.5 K/CMM (01/24/17 4:32 AM) 0.7 K/CMM (01/23/17 5:22 AM) Monocytes # [0.0-0.8 K/CMM] 0.3 K/CMM (01/27/17 6:15 AM) 0.3 K/CMM (01/24/17 4:32 AM) 0.3 K/CMM (01/23/17 5:22 AM) Eosinophils # [0.0-0.5 K/CMM] 0.1 K/CMM (01/27/17 6:15 AM) 0.1 K/CMM (01/24/17 4:32 AM) 0.1 K/CMM (01/22/17 3:59 AM) Basophils # [0.0-0.2 K/CMM] >100 mm/hr *HI* (01/21/17 6:19 AM) Sed Rate [0-15 mm/hr] 13.7 seconds (01/24/17 4:32 AM) 14.2 seconds (01/20/17 3:15 PM) PT [12.0-14.7 seconds] 1.03 (01/24/17 4:32 AM) 1.08 (01/20/17 3:15 PM) INR [0.85-1.17] 33.7 seconds (01/20/17 3:15 PM) PTT [22.9-35.8 seconds] Immunizations Given and Recorded Vaccine Date Status Refusal Reason Hx influenza vaccine-unspecified1 09/22/12 Given influenza virus vaccine, inactivated 09/15/16 Given pneumococcal 23-valent vaccine 05/09/14 Given tetanus toxoid 02/01/13 Given Not Given Vaccine Date Status Refusal Reason pneumococcal 13-valent vaccine 01/25/17 Not Given Patient Refuses 1Admin Note: received at hospital Procedures Procedure Date Related Diagnosis Body Site Amputation great toe 04/02/13 Amputation of the foot Amputation of toe Social History Social History Type Response Alcohol Past, Frequency: 1-2 times per week. Smoking Status Former smoker; Exposure to Tobacco Smoke None; Cigarette Smoking Last 365 Days No; Reg Smoking Cessation Counseling No Assessment and Plan Extracted from: Title: Progress Note * Author: Nieves Patel MD [...] . Hope fully DC on TOmorrow Extracted from: Title: History and Physical Author: Paul Najera DO Date: 01/20/17 Assessment/Plan 1.Sepsis secondary to below, cxr neg, will check ua. Ordered: Admit/Condition 2.Cellulitis on right and left foot. started on vanco/cefepime. await cx, appreciate ID recs, ?need for mri or to treat as chronic osteo? foot xrays with stable destructive changes. arterial doppler last year with mild vascular disease on right side, in 2012 mild vasculardisease on both sides. previous mri [...] > 100.4 F, Start date: 01/20/17 18:23: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, Duration: 30 day, Stop date: 02/19/17 18:22:00 CDT acetaminophen-hydrocodone 325 mg-5 mg oral tablet, 1 tab, Route: PO, Dosing Weight 113.636, kg, Q4H, PRN Pain Score 4-6, Start date: 01/20/17 18:23: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, Duration: 30 day, Stop date: 02/19/17 18:22:00 CDT amLODIPine, 10 mg, Route: PO, Drug form: TAB, Daily, Dosing Weight 113.636, kg, Start date: 01/21/17 9:00:00 CDT, Duration: 30 day, Stop date: 02/19/17 9:00:00 CDT cefepime, 1 gm, Route: IVPB, ABXQ8H, Dosing Weight 113.636, kg, (CrCl >/=50 ml/min), Start date: 01/20/17 19:00: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, Duration: 30 day, Stop date: 02/19/17 11:00:00 CDT Dextrose 50% Syringe, 25 mL, Route: IVP, Dosing Weight 113.636, kg, PRN, PRN Blood Glucose Results, Start date: 01/20/17 18:25: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, Duration: 30 day, Stop date: 02/19/17 19:24:00 CDT Dextrose 50% Syringe, 50 mL, Route: IVP, Dosing Weight 113.636, kg, PRN, PRN Blood Glucose Results, Start date: 01/20/17 18:25: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, Duration: 30 day, Stop date: 02/19/17 19:24:00 CDT glucagon, 1 mg, Route: IM, PRN, Dosing Weight 113.636, kg, PRN Blood Glucose Results, Start date: 01/20/17 18:25: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, Duration: 30 day, Stop date: 02/19/17 19:24:00 CDT insulin aspart, 2 unit, Route: SUB-Q, TID-Before Meals, Dosing Weight 113.636, kg, PRN Blood Glucose Results, Start date: 01/20/17 18:25: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, Duration: 30 day, Stop date: 02/19/17 18:24:00 CDT insulin aspart, 1 unit, Route: SUB-Q, TID-Before Meals, Dosing Weight 113.636, kg, PRN Blood Glucose Results, Start date: 01/20/17 18:25: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, Duration: 30 day, Stop date: 02/19/17 18:24:00 CDT insulin aspart, 3 unit, Route: SUB-Q, TID-Before Meals, Dosing Weight 113.636, kg, PRN Blood Glucose Results, Start date: 01/20/17 18:25: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, Duration: 30 day, Stop date: 02/19/17 18:24:00 CDT insulin aspart, 4 unit, Route: SUB-Q, TID-Before Meals, Dosing Weight 113.636, kg, PRN Blood Glucose Results, Start date: 01/20/17 18:25: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, Duration: 30 day, Stop date: 02/19/17 18:24:00 CDT insulin aspart, 5 unit, Route: SUB-Q, TID-Before Meals, Dosing Weight 113.636, kg, PRN Blood Glucose Results, Start date: 01/20/17 18:25: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, Duration: 30 day, Stop date: 02/19/17 18:24:00 CDT insulin isophane-NPH, 10 unit, Route: SUB-Q, BID, Dosing Weight 113.636, kg, Start date: 01/21/17 9:00:00 CDT, Duration: 30 day, Stop date: 02/19/17 17:00:00 CDT ondansetron, 4 mg, Route: IVP, Q6H, Dosing Weight 113.636, kg, PRN Nausea & Vomiting, Start date: 01/20/17 18:23: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, Duration: 30 day, Stop date: 02/19/17 18:22:00 CDT Sodium Chloride 0.9% IV 1000 mL, 1,000 mL, Rate: 100 ml/hr, Infuse over: 10 hr, Route: IV, Dosing Weight 113.636 kg, Total Volume: 1,000, Start date: 01/20/17 18:26: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, Duration: 30 day, Stop date: 02/19/17 18:25:00 CDT Ambulation Bedrest CDM Admission Acute Care Post ED CDM Aspart (Novolog) for Starting Correction Doses CDM Insulin Sub-Q Orders for patients on Oral Nutrition Culture: Wound/Abscess w/Gram Stain Culture: Wound/Abscess w/Gram Stain Diet Carbohydrate Controlled Hypoglycemia Management Hypoglycemia Management Notify Notifbrian PHILLIPS Notifrbian PHILLIPS Notifbrian PHILLIPS Provide Education AC4 Patient Education AC4 Consult Physician AC4 Point of Care Blood Glucose AC4 Point of Care Blood Glucose AC4 Pulse Oximetry Spot Check by Nurse Vital Signs Prophylaxis lovenox Disposition pending wound care, iv anbx, wound cx
--- OUTSIDE RECORDS SUMMARY | 2019-05-19 11:05 | XMS REPORT ---
Author Author Nikos Nair Organization [employer] Address Unknown Phone Unavailable Care Team Providers Care Rail Signal Mechanic Name Role Phone Nikos Nair CP Unavailable Allergies, Adverse Reactions, Alerts Substance Reaction Event Type penicillin Info Not Available Drug Allergy Calcipotriene Info Not Available Drug Allergy Problems Problem Type Condition Code Onset Dates Condition Status Assessment Rash R21 Active Assessment Diabetic foot ulcer E11.621 Active Problem BENIGN HTN (Essential hypertension, benign) 401.1 Active Assessment PVD (peripheral vascular disease) I73.9 Active Assessment Osteomyelitis of left foot, unspecified type M86.9 Active Assessment MSSA (methicillin susceptible Staphylococcus aureus) A49.01 Active Medications Medication Code System Code Instructions Start Date End Date Status Dosage Triamcinolone Acetonide [facility] [address]-62 0.1 % Externally Twice a day Active 1 application to affected area metformin 1,000 mg tablet NDC 0 1,000 by oral route February 19, 2013 Active take lisinopril 20 mg tablet NDC 0 20 by oral route February 19, 2013 Active take Vital Signs Date/Time: March 07, 2017 BMI 41.19 Index Weight 240 lbs Height 64 in Temperature 98.9 F Cardiac Monitoring Heart Rate 96 /min Blood Pressure Diastolic 88 mm Hg Blood Pressure Systolic 142 mm Hg Results No Known Results Summary Purpose [employer] Submission
--- OUTSIDE RECORDS SUMMARY | 2019-05-19 11:05 | XMS REPORT ---
Author Ayla Nelson [facility] [employer] Address Unknown Phone Unavailable Care Team Providers Care Electronic Video Games Servicer Name Role Phone Ayla Fletcher CP Unavailable Allergies, Adverse Reactions, Alerts Substance Reaction Event Type PCN - penicillin Info Not Available Drug Allergy Encounters Encounter Location Date Initial visit Ayla Fletcher MD June 04, 2015 Problems Problem Type Condition ICD-9 Code Onset Dates Condition Status Assessment Obesity Morbid 278.01 Active Assessment S/P transmetatarsal amputation of foot V49.73 Active Assessment Body Mass Index 50.0-59.9, adult V85.43 Active Problem Diabetes with peripheral circulatory disorders, type II or unspecified type, uncontrolled 250.72 Active Problem S/P transmetatarsal amputation of foot V49.73 Active Problem Osteomyelitis due to secondary diabetes 249.80 Active Assessment Osteomyelitis due to secondary diabetes 249.80 Active Assessment Diabetes with peripheral circulatory disorders, type II or unspecified type, uncontrolled 250.72 Active Problem Body Mass Index 50.0-59.9, adult V85.43 Active Problem Obesity Morbid 278.01 Active Medications Medication Code System Code Instructions Start Date End Date Status Dosage Levemir Flexpen [facility] [address]-44 100 UNIT/ML Subcutaneous once every night Active 30 init Vitamin C [facility] [address] 500 mg Orally daily Active 1 tablet Aspirin [facility] [address]-78 81 MG Orally Once a day June 04, 2015 May 29, 2016 Active 1 tablet NovoLog Flexpen [facility] [address]-52 100 UNIT/ML Subcutaneous before each meal Active 20 unit Metformin HCl [facility] [address]-91 500 MG Orally Twice a day Active 1 tablet with meals Zinc Sulfate [facility] [address]-23 220 mg by mouth daily Active 1 tablet Doxycycline Hyclate [facility] [address]-13 100 mg by mouth Twice a day Active 1 tablet Social History Social History Element Qualifiers Date Reported Do you take aspirin or a blood thinner drug? . Olivia Mtz 06/04/2015 2:15:18 PM > June 04, 2015 Tobacco Use: . Are you a: never smoker June 04, 2015 Marital Status: . MarriedOlivia Kelley 06/04/2015 2:18:31 PM > June 04, 2015 Caffeine intake? . Status: Yes, What type: Coffee, Tea, Soft Drinks June 04, 2015 Do you exercise? . Answer: No June 04, 2015 Do you drink alcohol? . YESOlivia Kelley 06/04/2015 2:15:18 PM > June 04, 2015 Vital Signs Date/Time: June 04, 2015 Weight 246.8 lbs Height 56.0 in Temperature 98.6 F Cardiac Monitoring Heart Rate 100 /min Blood Pressure Diastolic 79 mm Hg Blood Pressure Systolic 117 mm Hg Respiratory Rate 20 /min Summary Purpose [employer] Submission
--- OUTSIDE RECORDS SUMMARY | 2019-05-19 11:05 | XMS REPORT ---
Author Author Kevin Harrison Organization [employer] Address Unknown Phone Unavailable Care Team Providers Care Nut Sifter Name Role Phone Kevin Harrison CP Unavailable Encounters Encounter Location Date Unknown [facility] Aug 18, [address] [facility] Aug 18, [address] [facility] Sep 28, 2015 Problems Problem Type Condition ICD-9 Code Onset Dates Condition Status Problem Ulcer of other part of foot 707.15 Active Problem Diabetes II with Neuropathy 250.60 Active Problem Diabetes II with PVD 250.70 Active Problem Abscess - Foot/Heel 682.7 Active Problem Type 2 diabetes mellitus with diabetic peripheral angiopathy without gangrene E11.51 Active Problem Type 2 diabetes mellitus with diabetic polyneuropathy E11.42 Active Problem Type 2 diabetes mellitus with foot ulcer E11.621 Active Problem Abscess of foot without toes, right L02.611 Active Problem Osteomyelitis - Acute 730.07 Active Problem Amputation at midfoot, right, subsequent encounter S98.311D Active Problem Foot ulceration, right, with fat layer exposed L97.512 Active Social History Social History Element Qualifiers Date Reported Do you smoke? . Answer: No Sep 02, 2015 Tobacco Use: . Are you a:: never smoker Sep 02, 2015 Marital Status: . Sep 02, 2015 Do you exercise? . Answer: No Sep 02, 2015 Do you drink alcohol? . Status: No Sep 02, 2015 Occupation: . Unemployed Sep 02, 2015 Summary Purpose [employer] Submission
--- OUTSIDE RECORDS SUMMARY | 2019-05-19 11:05 | XMS REPORT ---
Author Author [facility] [place] Address Unknown Phone Unavailable Care Team Providers Care Forestry Foreman Name Role Phone Unavailable Unavailable Payers Payer Name Policy Type Policy Number Effective Date Expiration Date Problems This patient has no known problems. Allergies, Adverse Reactions, Alerts Allergy Name Allergy Type Status Severity Reaction(s) Onset Date Inactive Date Treating Clinician Comments Penicillins DA Active SV 2018-08-16 00:00:00 Medications This patient has no known medications.
--- OUTSIDE RECORDS SUMMARY | 2019-05-19 11:05 | XMS REPORT ---
Author Author Nikos Nair Organization [employer] Address Unknown Phone Unavailable Care Team Providers Care Sales And Marketing Specialist Name Role Phone Nikos Nair CP Unavailable [...] Instructions Start Date End Date Status Dosage lisinopril 20 mg tablet NDC 0 20 by oral route February 19, 2013 Active take Triamcinolone Acetonide [facility] [address]-23 0.1 % Externally Twice a day February 28, 2017 Active 1 application to affected area Doxycycline Hyclate [facility] [address]-27 100 MG Orally every 12 hrs February 14, 2017 February 28, 2017 Active 1 capsule metformin 1,000 mg tablet NDC 0 1,000 by oral route February 19, 2013 Active take PredniSONE [facility] [address]-04 50 MG Orally Once a day February 28, 2017 March 01, 2017 Active 1 tablet Vital Signs Date/Time: February 28, 2017 BMI 41.19 Index Weight 240 lbs Height 64 in Temperature 98.6 F Cardiac Monitoring Heart Rate 53 /min Blood Pressure Diastolic 84 mm Hg Blood Pressure Systolic 163 mm Hg Results No Known Results Summary Purpose [employer] Submission
--- OUTSIDE RECORDS SUMMARY | 2019-05-19 11:05 | XMS REPORT ---
Author Author Nikos Nair Organization [employer] Address Unknown Phone Unavailable Care Team Providers Care Grain Oilseed Or Pasture Farm Worker Name Role Phone Nikos Nair CP Unavailable Allergies, Adverse Reactions, Alerts Substance Reaction Event Type penicillin Info Not Available Drug Allergy Calcipotriene Info Not Available Drug Allergy Problems Problem Type Condition Code Onset Dates Condition Status Assessment Diabetic foot ulcer E11.621 Active Assessment Osteomyelitis of left foot, unspecified type M86.9 Active Problem BENIGN HTN (Essential hypertension, benign) 401.1 Active Assessment MSSA (methicillin susceptible Staphylococcus aureus) A49.01 Active Assessment PVD (peripheral vascular disease) I73.9 Active Medications Medication Code System Code Instructions Start Date End Date Status Dosage lisinopril 20 mg tablet NDC 0 20 by oral route February 19, 2013 Active take metformin 1,000 mg tablet NDC 0 1,000 by oral route February 19, 2013 Active take Doxycycline Hyclate [facility] [address]-43 100 MG Orally every 12 hrs February 14, 2017 February 28, 2017 Active 1 capsule Vital Signs Date/Time: February 14, 2017 BMI 41.19 Index Weight 240 lbs Height 64 in Temperature 98.8 F Cardiac Monitoring Heart Rate 97 /min Blood Pressure Diastolic 78 mm Hg Blood Pressure Systolic 128 mm Hg Results No Known Results Summary Purpose [employer] Submission
[2019-05-19] MEDS ORDERED: SODIUM CHLORIDE 0.9% 1000ML 1,000 ML IV STA (11:12)
[2019-05-19] MEDS ORDERED: ACETAMINOPHEN 1000 MG/100 ML 100 ML IV ONE (11:28)
[2019-05-19] MEDS ORDERED: METOPROLOL TARTRATE INJ 1 MG/ML VIAL ONE (11:30)
[2019-05-19] MEDS ORDERED: DILTIAZEM HCL VIAL 5 ML ONE (11:33)
[2019-05-19] MEDS ORDERED: ACETAMINOPHEN 1000 MG/100 ML IV STA (11:37)
[2019-05-19] MEDS ORDERED: DILTIAZEM HCL 5 MG/ML 5 ML VIAL IV STA (11:37)
[2019-05-19] MEDS ORDERED: SODIUM CHLORIDE 0.9% 1000ML 1,000 ML IV ONE (11:45)
[2019-05-19] MEDS ORDERED: METOPROLOL TARTRATE INJ 1 MG/ML VIAL IV ONE ×2 (11:45→20:00)
[2019-05-19] MEDS ORDERED: ACETAMINOPHEN 1000 MG/100 ML IV ONE (12:00)
[2019-05-19] MEDS ORDERED: DILTIAZEM HCL 5 MG/ML 5 ML VIAL IV ONE (12:00)
[2019-05-19] MEDS ORDERED: VANCOMYCIN 1GM/NS 250 ML 250 ML IV ONE (12:00)
[2019-05-19 12:04] LABS: BASOPHILS # (AUTO) 0.1 (0.0-0.1); BASOPHILS % 0.3 % (0.0-1.0); EOSINOPHILS % 0.2 % (0.0-6.0); HEMATOCRIT 29.4 % (38.2-49.6); HEMOGLOBIN 9.9 g/dL (14.0-18.0); LYMPHOCYTES % 5.7 % (18.0-39.1); MEAN CORPUSCULAR HEMOGLOBIN 29.5 pg (28-32); MEAN CORPUSCULAR HGB CONC 33.7 g/dL (31-35); MEAN CORPUSCULAR VOLUME 87.5 fL (81-99); MONOCYTES % 5.5 % (4.4-11.3); NEUTROPHILS # (AUTO) 15.3 (2.1-6.9); NEUTROPHILS % 87.2 % (38.7-80.0); PLATELET COUNT 221 x10e3/uL (140-360); RED BLOOD COUNT 3.36 x10e6/uL (4.3-5.7); RED CELL DISTRIBUTION WIDTH 14.3 % (11.7-14.4)
[2019-05-19 12:15] LABS: ALBUMIN/GLOBULIN RATIO 0.4 (0.8-2.0); ANION GAP 13.9 mmol/L (8-16); CALCIUM 8.4 mg/dL (8.4-10.2); CREATININE, SERUM 1.62 mg/dL (0.72-1.25); POTASSIUM 3.9 mmol/L (3.5-5.1)
--- NOTE | 2019-05-19 12:23 | NUR ---
INCREASED TO 999CC/HR PER ORDER FOR BP 76/53
[2019-05-19] MEDS ORDERED: SODIUM CHLORIDE 0.9% 1000ML 1,000 ML IV SCH (12:30)
[2019-05-19] MEDS ORDERED: CEFEPIME 1GM/NS 0.9% 50 ML 50 ML IV ONE (12:30)
[2019-05-19 12:37] LABS: CREATINE KINASE MB 0.5 ng/mL (0-5.0)
--- NOTE | 2019-05-19 13:06 | Diagnostic Imaging Report ---
Exam: Bilateral foot series, 3 views of each foot. Clinical History: Left foot pain, open wound on heel of right foot. Comparison: None Findings: Right foot: Postoperative findings of prior right foot transmetatarsal amputation. There is a soft tissue defect on the plantar aspect of the lateral foot with subcutaneous air and periosteal reaction of the underlying bone. There are extensive posttraumatic/degenerative changes to the right midfoot and hindfoot with extensive joint space loss and bony proliferative changes. Atherosclerotic vascular calcifications. Left foot: No acute fracture or dislocation. The soft tissues appear unremarkable. There is deformity of the second metatarsal head with associated widening of the MTP joint, possibly related to remote trauma. Mild scattered degenerative changes about the midfoot. Small plantar calcaneal spur and Achilles enthesopathy. Impression: 1. Soft tissue defect on the plantar aspect of the lateral right foot with subcutaneous air and periosteal reaction of the underlying bone. Findings raise concern for underlying osteomyelitis. Substantial posttraumatic/degenerative changes along with postoperative changes of the right foot. 2. Deformity of the left second metatarsal head with associated MTP joint widening, possibly related to remote trauma. Signed by: Hellen Jacobson MD on 05/19/2019 1:03 PM
--- OUTSIDE RECORDS SUMMARY | 2019-05-19 14:13 | XMS REPORT | Continuity of Care Document ---
Author Author Networker Organization Networker Address Unknown Phone Unavailable Care Team Providers [employer] Teacher Name Role Phone [employer] Unavailable Unavailable Problems Problem Status Onset Date Classification Date Reported Comments Source FOOT PAIN Active 01/20/2017 [facility] SEPSIS,CELLULITIS,TYPE II DIABETES MELLI Active 01/20/2017 [facility] DEHYDRATION, DIABETIC KETOSIS, DIABETIC Active 09/14/2016 [facility] VOMITING Active 09/14/2016 [facility] RIGHT FOOT-STUMP INFECTION, R/O SPESIS Active 06/16/2016 [facility] ABSCESS Active 06/16/2016 [facility] INJURY IN LEFT SHOULDER Active 02/21/2016 [facility] R DIABETIC FOOT ULCER Active 02/21/2016 [facility] Discharge Diagnosis: Ankle sprain 12/28/2015 01/01/2016 [facility] ACUTE FOOT INFECTION Active 04/26/2015 [facility] FOOT OSTEOMYLITIS Active 04/09/2013 [facility] RIGHT FOOT CELLULITIS AND OSTEOMVELITIS Active 04/01/2013 [facility] INFECTION RIGHT FOOT Active 04/01/2013 [facility] OSTEROMYELITIS Active 02/06/2013 [facility] MRSA1, 2, 3 Active 01/31/2013 Problem 02/02/2017 04/20/14 ongoing ulceration of a right foot wound. MRSA from the abscess on the Right foot Problem added by Discern Expert. [facility] MRSA1, 2 Active 01/31/2013 Problem 03/11/2013 1MRSA from the abscess on the Right foot 2Problem added by Discern Expert. [facility] DIABETIC FOOT Active 01/28/2013 [facility] CUT ON FOOT Active 01/28/2013 [facility] Diabetes Resolved Problem 05/06/2015 [facility] Pseudomonas4 Active Problem 02/02/2017 Problem added by Discern Expert. [facility] Diabetes Active Problem 02/02/2017 [facility] Hypertension Resolved Problem 02/02/2017 [facility] Diabetic foot ulcer Active Diagnosis 03/08/2017 [id number] Osteomyelitis of left foot, unspecified type Active Diagnosis 03/08/2017 [id number] BENIGN HTN Active Problem 03/08/2017 [id number] MSSA Active Diagnosis 03/08/2017 [id number] PVD Active Diagnosis 03/08/2017 [id number] Rash Active Diagnosis 03/08/2017 [id number] Ulcer of other part of foot Active Problem 10/14/2015 [facility] Diabetes II with Neuropathy Active Problem 10/14/2015 [facility] Diabetes II with PVD Active Problem 10/14/2015 [facility] Abscess - Foot/Heel Active Problem 10/14/2015 [facility] Type 2 diabetes mellitus with diabetic peripheral angiopathy without gangrene Active Problem 10/14/2015 [facility] Type 2 diabetes mellitus with diabetic polyneuropathy Active Problem 10/14/2015 [facility] Type 2 diabetes mellitus with foot ulcer Active Problem 10/14/2015 [facility] Abscess of foot without toes, right Active Problem 10/14/2015 [facility] Osteomyelitis - Acute Active Problem 10/14/2015 [facility] Amputation at midfoot, right, subsequent encounter Active Problem 10/14/2015 [facility] Foot ulceration, right, with fat layer exposed Active Problem 10/14/2015 [facility] Obesity Morbid Active Diagnosis 06/08/2015 Ayla Fletcher S/P transmetatarsal amputation of foot Active Diagnosis 06/08/2015 Ayla Fletcher Body Mass Index 50.0-59.9, adult Active Diagnosis 06/08/2015 Ayla Fletcher Diabetes with peripheral circulatory disorders, type II or unspecified type, uncontrolled Active Problem 06/08/2015 Ayla Fletcher Osteomyelitis due to secondary diabetes Active Problem 06/08/2015 Ayla Fletcher ULCER OF LOWER LIMB NOS Active [facility] CELLULITIS OF FOOT Active [facility] TYPE 2 DIABETES MELLITUS WITH FOOT ULCER Active [facility] INFECTION OF OTHER EXTERNAL STOMA OF URI Active [facility] DEHYDRATION Active [facility] SEPSIS, UNSPECIFIED ORGANISM Active [facility] CELLULITIS, UNSPECIFIED Active [facility] Medications Medication Details Route Status Patient Instructions Ordering Provider Order Date Source Triamcinolone Acetonide 1 application to affected area Externally Active 0.1 % Externally Twice a day Hasan 02/28/2017 [id number] PredniSONE 1 tablet Orally Active 50 MG Orally Once a day Hasan 02/28/2017 [id number] Doxycycline Hyclate 1 capsule Orally Active 100 MG Orally every 12 hrs Hasan 02/14/2017 [id number] cefTRIAXone 2 g injection 2 gm, IV, Q24H, X 18 day, # 18 bag, 0 Refill(s), other Active 01/30/2017 [facility] insulin isophane (NPH) 100 units/mL human recombinant subcutaneous suspension 30 unit, SUB-Q, BID, # 20 mL, 3 Refill(s) Active 01/29/2017 [facility] Metformin hydrochloride 1000 MG Oral Tablet 1,000 mg, PO, BID, # 180 tab, 3 Refill(s) Active 01/29/2017 [facility] Acetaminophen 300 MG / Codeine Phosphate 30 MG Oral Tablet [Tylenol with Codeine #3] 1 tab, PO, Q6H, PRN Pain, X 5 day, # 20 tab, 0 Refill(s) Active 01/29/2017 [facility] Ceftriaxone 2 gm, Route: IVPB, [id number], Dosing Weight 116.932, kg, Start date: 01/26/17 17:00:00 CDT, Duration: 21 day, Stop date: 02/15/17 17:00:00 CDTNotes: (Same As: Rocephin). Use with 100 mL NS and infuse over 30 min MEDICATION WASTE Product Size: 2000 mg Product Wasted: ___ mg No Longer Active 01/26/2017 [facility] Streptococcus pneumoniae serotype 1 capsular antigen diphtheria [id number] protein conjugate vaccine / Streptococcus pneumoniae serotype 14 capsular antigen diphtheria [id number] protein conjugate vaccine / Streptococcus pneumoniae serotype 18C capsular antigen d 0.5 mL, Route: IM, Drug Form: INJ, Daily, Start date: 01/25/17 9:00:00 CDT, Stop date: 01/25/17 15:00:00 CDTNotes: Lightly roll vial (DO NOT SHAKE) before administration. (Same as: Prevnikki 13) Inactive 01/25/2017 [facility] Promethazine 6.25 mg, Route: IVPB, ONCE, Dosing Weight 116.932, kg, PRN Nausea & Vomiting, Start date: 01/24/17 9:14:00 CDT Inactive 01/24/2017 [facility] Ondansetron 4 mg, Route: IVP, ONCE, Dosing Weight 116.932, kg, PRN Nausea & Vomiting, Start date: 01/24/17 9:14:00 CDT Inactive 01/24/2017 [facility] Diphenhydramine 12.5 mg, Route: IVP, Drug form: INJ, Q6H, Dosing Weight 116.932, kg, PRN Itching, Start date: 01/24/17 9:14:00 CDT, Duration: 30 day, Stop date: 02/23/17 9:13:00 CDT Inactive 01/24/2017 [facility] Albuterol 0.83 MG/ML Inhalant Solution 2.49 mg, Route: NEB, Q20Min, Dosing Weight 116.932, kg, PRN Wheezing, Priority: STAT, Start date: 01/24/17 9:14:00 CDT, Duration: 30 day, Stop date: 02/23/17 9:13:00 CDT Inactive 01/24/2017 [facility] Naloxone 0.4 mg, Route: IVP, Q2MIN, Dosing Weight 116.932, kg, PRN Narcotic Reversal, Start date: 01/24/17 9:14:00 CDT, Duration: 8 doses or times, Stop date: Limited # of times Inactive 01/24/2017 [facility] Meperidine 12.5 mg, Route: IVP, Q30Min, Dosing Weight 116.932, kg, PRN Other -See Comment, For shivering, Start date: 01/24/17 9:14:00 CDT, Duration: 2 doses or times, Stop date: Limited # of times Inactive 01/24/2017 [facility] esmolol 10 mg, Route: IVP, Q5Min, Dosing Weight 116.932, kg, PRN Other -See Comment, Start date: 01/24/17 9:14:00 CDT, Duration: 5 doses or times, Stop date: Limited # of times Inactive 01/24/2017 [facility] Labetalol 10 mg, Route: IVP, Q5Min, Dosing Weight 116.932, kg, PRN Elevated BP, Start date: 01/24/17 9:14:00 CDT, Duration: 5 doses or times, Stop date: Limited # of times Inactive 01/24/2017 [facility] Oxycodone 5 mg, Route: PO, Drug form: TAB, Q4H, Dosing Weight 116.932, kg, PRN Pain Score 4-6, Start date: 01/24/17 9:14:00 CDT, Duration: 30 day, Stop date: 02/23/17 9:13:00 CDT Inactive 01/24/2017 [facility] Acetaminophen 1,000 mg, Route: PO, Drug form: TAB, ONCE, Dosing Weight 116.932, kg, PRN Pain Score 1-3, Start date: 01/24/17 9:14:00 CDT, Duration: 1 doses or times, Stop date: Limited # of times Inactive 01/24/2017 [facility] Hydromorphone 0.5 mg, Route: IVP, Q5Min, Dosing Weight 116.932, kg, PRN Pain Score 7-10, Start date: 01/24/17 9:14:00 CDT, Duration: 4 doses or times, Stop date: Limited # of times Inactive 01/24/2017 [facility] Flumazenil 0.2 mg, Route: IVP, PRN, Dosing Weight 116.932, kg, PRN Benzodiazepine Reversal, Initial dose, Start date: 01/24/17 9:14:00 CDT, Duration: 30 day, Stop date: 02/23/17 9:13:00 CDT Inactive 01/24/2017 [facility] Hydralazine 10 mg, Route: IVP, Q20Min, Dosing Weight 116.932, kg, PRN Elevated BP, Start date: 01/24/17 9:14:00 CDT, Duration: 2 doses or times, Stop date: Limited # of times Inactive 01/24/2017 [facility] Calcium Chloride 0.0014 MEQ/ML / Potassium Chloride 0.004 MEQ/ML / Sodium Chloride 0.103 MEQ/ML / Sodium Lactate 0.028 MEQ/ML Injectable Solution 1,000 mL, Rate: 125 ml/hr, Infuse over: 8 hr, Route: IV, Dosing Weight 116.932 kg, Total Volume: 1,000, Start date: 01/24/17 9:14:00 CDT, Duration: 30 day, Stop date: 02/23/17 9:13:00 CDT Inactive 01/24/2017 [facility] diphenhydrAMINE (ANES) Route: IV, Drug form: INJ, ONCE, Stop date: 01/24/17 9:06:00 CDT Inactive 01/24/2017 [facility] fentaNYL (ANES) Route: IV, Drug form: INJ, ONCE, Stop date: 01/24/17 9:01:00 CDT Inactive 01/24/2017 [facility] famotidine (ANES) Route: IV, Drug form: INJ, ONCE, Stop date: 01/24/17 9:01:00 CDT Inactive 01/24/2017 [facility] metoclopramide (ANES) Route: IV, Drug form: INJ, ONCE, Stop date: 01/24/17 9:01:00 CDT Inactive 01/24/2017 [facility] ondansetron (ANES) Route: IV, Drug form: INJ, ONCE, Stop date: 01/24/17 9:01:00 CDT Inactive 01/24/2017 [facility] insulin, isophane 30 unit, 0.3 mL, [...] days from Date No Longer Active 01/24/2017 [facility] midazolam (ANES) Route: IV, Drug form: SOLN, ONCE, Stop date: 01/24/17 8:46:00 CDT Inactive 01/24/2017 [facility] Insulin regular 3 unit, Route: IVP, ONCE, Dosing Weight 116.932, kg, Start date: 01/24/17 7:48:00 CDT, Stop date: 01/24/17 7:48:00 CDT Inactive 01/24/2017 [facility] Albuterol 0.833 MG/ML / Ipratropium [place] 0.167 MG/ML Inhalant Solution 3 mL, Route: NEB, Dosing Weight 116.932, kg, ONCE, STAT, Start date: 01/24/17 7:23:00 CDT, Stop date: 01/24/17 7:23:00 CDT Inactive 01/24/2017 [facility] Calcium Chloride 0.0014 MEQ/ML / Potassium Chloride 0.004 MEQ/ML / Sodium Chloride 0.103 MEQ/ML / Sodium Lactate 0.028 MEQ/ML Injectable Solution 1,000 mL, Rate: 25 ml/hr, Infuse over: 40 hr, Route: IV, Dosing Weight 116.932 kg, Total Volume: 1,000, Start date: 01/24/17 7:23:00 CDT, Duration: 30 day, Stop date: 02/23/17 7:22:00 CDT Inactive 01/24/2017 [facility] LR 1000 mL INJ (ANES) Route: IV, Total Volume: 1,000, Start date: 01/24/17 7:15:00 CDT, Stop date: 01/24/17 8:15:00 CDT Inactive 01/24/2017 [facility] Insulin regular 3 unit, Route: IVP, ONCE, Dosing Weight 116.932, kg, Start date: 01/24/17 7:12:00 CDT, Stop date: 01/24/17 7:12:00 CDT Inactive 01/24/2017 [facility] insulin, isophane 25 unit, 0.25 mL, [...] days from Date No Longer Active 01/21/2017 [facility] Insulin, Aspart, Human 4 unit, 0.04 [...] days from Date No Longer Active 01/21/2017 [facility] Dextrose 50% Syringe 25 gm, 50 mL, Route: IVP, Drug Form: INJ, Dosing Weight 116.932, kg, PRN, PRN Blood Glucose Results, Start date: 01/21/17 10:37:00 CDT, Duration: 30 day, Stop date: 02/20/17 10:36:00 CDT No Longer Active 01/21/2017 [facility] Glucagon 1 mg, Route: IM, Drug form: PDR/INJ, PRN, Dosing Weight 116.932, kg, PRN Blood Glucose Results, Start date: 01/21/17 10:37:00 CDT, Duration: 30 day, Stop date: 02/20/17 10:36:00 CDT No Longer Active 01/21/2017 [facility] insulin, isophane 10 unit, 0.1 mL, [...] Expires in days from Date Inactive 01/21/2017 [facility] pneumococcal capsular polysaccharide type 1 vaccine / pneumococcal capsular polysaccharide type 10A vaccine / pneumococcal capsular polysaccharide type 11A vaccine / pneumococcal capsular polysaccharide type 12F vaccine / pneumococcal capsular polysacchar 0.5 mL, Route: IM, Daily, Start date: 01/21/17 9:00:00 CDT, Duration: 1 doses or times, Stop date: 01/21/17 9:00:00 CDT No Longer Active 01/21/2017 [facility] Amlodipine 10 mg, 2 tab, Route: PO, Drug form: TAB, Daily, Dosing Weight 113.636, kg, Start date: 01/21/17 9:00:00 CDT, Duration: 30 day, Stop date: 02/19/17 9:00:00 CDTNotes: (Same as: Norvasc) No Longer Active 01/21/2017 [facility] Clindamycin 600 mg, 50 mL, Route: IVPB, Drug form: INJ, [id number], Dosing Weight 116.932, kg, Start date: 01/20/17 22:00:00 HEAD OF TALENT MANAGEMENT, Duration: 30 day, Stop date: 02/19/17 14:00:00 CDT No Longer Active 01/21/2017 [facility] Lovenox 40 mg, 0.4 mL, Route: SUB-Q, Drug form: INJ, [id number], Dosing Weight 113.636, kg, Start date: 01/20/17 19:00:00 HEAD OF TALENT MANAGEMENT, Duration: 30 day, Stop date: 02/18/17 19:00:00 CDTNotes: (Same as: Lovenox) No Longer Active 01/21/2017 [facility] cefepime 1 gm, Route: IVPB, ABXQ8H, Dosing Weight 113.636, kg, (CrCl >/=50 ml/min), Start date: 01/20/17 19:00:00 HEAD [employer]ALENT MANAGEMENT, Duration: 30 day, Stop date: 02/19/17 11:00:00 CDTNotes: (Same As: Maxipime) MEDICATION WASTE Product Size: 1000 mg Product Wasted: ___ mg Inactive 01/21/2017 [facility] sodium chloride 0.9% 1000 ml INJ 1,000 mL 1,000 mL, Rate: 100 ml/hr, Infuse over: 10 hr, Route: IV, Dosing Weight 113.636 kg, Total Volume: 1,000, Start date: 01/20/17 18:26:00 HEAD OF TALENT MANAGEMENT, Duration: 30 day, Stop date: 02/19/17 18:25:00 CDT No Longer Active 01/21/2017 [facility] Insulin, Aspart, Human 2 unit, 0.02 mL, Route: SUB-Q, Drug form: SOLN, TID-Before Meals, Dosing Weight 113.636, kg, PRN Blood Glucose Results, Start date: 01/20/17 18:25:00 HEAD OF TALENT MANAGEMENT, Duration: 30 day, Stop date: 02/19/17 18:24:00 CDTNotes: Roll in palms of hands gently; Do not shake vigorously. (Same as: NovoLOG) "single patient use only" WASTE: F/P - Black; E - Municipal Trash Bin Stable for 28 days at room temperature. Expires in days from Date No Longer Active 01/21/2017 [facility] Glucagon 1 mg, Route: IM, Drug form: PDR/INJ, PRN, Dosing Weight 113.636, kg, PRN Blood Glucose Results, Start date: 01/20/17 18:25:00 HEAD OF TALENT MANAGEMENT, Duration: 30 day, Stop date: 02/19/17 19:24:00 CDT No Longer Active 01/21/2017 [facility] Dextrose 50% Syringe 12.5 gm, 25 mL, Route: IVP, Drug Form: INJ, Dosing Weight 113.636, kg, PRN, PRN Blood Glucose Results, Start date: 01/20/17 18:25:00 HEAD OF TALENT MANAGEMENT, Duration: 30 day, Stop date: 02/19/17 19:24:00 CDT No Longer Active 01/21/2017 [facility] Acetaminophen 650 mg, 2 tab, Route: PO, Drug form: TAB, Q4H, Dosing Weight 113.636, kg, PRN Pain 1-3/Temp > 100.4 F, Start date: 01/20/17 18:23:00 HEAD OF [employer]ALENT MANAGEMENT, Duration: 30 day, Stop date: 02/19/17 18:22:00 CDTNotes: Do not exceed 4 gm/day. (Same as: Tylenol) No Longer Active 01/21/2017 [facility] Acetaminophen 325 MG / Hydrocodone Bitartrate 5 MG Oral Tablet 1 tab, Route: PO, Drug Form: TAB, Dosing Weight 113.636, kg, Q4H, PRN Pain Score 4-6, Start date: 01/20/17 18:23:00 HEAD OF TALENT MANAGEMENT, Duration: 30 day, Stop date: 02/19/17 18:22:00 CDTNotes: (Same as: [place] 325/5) Do not exceed 4gm/day of acetaminophen. No Longer Active 01/21/2017 [facility] Ondansetron 4 mg, 2 mL, Route: IVP, Drug form: INJ, Q6H, Dosing Weight 113.636, kg, PRN Nausea & Vomiting, Start date: 01/20/17 18:23:00 HEAD OF TALENT MANAGEMENT, Duration: 30 day, Stop date: 02/19/17 18:22:00 CDTNotes: (Same as: Zofran) MEDICATION WASTE Product Size: 4 mg Product Wasted: ___ mg No Longer Active 01/21/2017 [facility] Tylenol 650 mg, Route: PO, Drug form: TAB, ONCE, Dosing Weight 113.636, kg, Priority: STAT, Start date: 01/20/17 14:56:00 HEAD OF TALENT MANAGEMENT, Stop date: 01/20/17 14:56:00 HEAD [employer] TALENT MANAGEMENT Inactive 01/20/2017 [facility] Vancomycin 2,000 mg, Route: IVPB, ONCE, Dosing Weight 115, kg, TIME CRITICAL MEDICATION, Priority: STAT, Start date: 01/20/17 14:55:00 HEAD OF TALENT MANAGEMENT, Stop date: 01/20/17 14:55:00 HEAD [employer]ALENT MANAGEMENT Inactive 01/20/2017 [facility] Saline Flush 0.9% 10 mL, Route: IVP, Drug Form: INJ, Dosing Weight 113.636, kg, PRN, PRN Line Flush, Start date: 01/20/17 14:55:00 HEAD OF [employer]ALENT MANAGEMENT, Duration: 30 day, Stop date: 02/19/17 15:54:00 CDTNotes: (Same as: BD Posiflush) Inactive 01/20/2017 [facility] Sodium Chloride 0.154 MEQ/ML Injectable Solution 3,450 mL, 2,000 ml/hr, Route: IV, ONCE, Priority: STAT, Dosing Weight 115 kg, Start date: 01/20/17 14:55:00 HEAD OF TALENT MANAGEMENT, Duration: 1 doses or times, Stop date: 01/20/17 14:55:00 HEAD OF TALENT MANAGEMENT Inactive 01/20/2017 [facility] cefepime 2 gm, Route: IVPB, [id number], Dosing Weight 116.932, kg, (CrCl >/=50 ml/min, HYDROMETEOROLOGIST infection or neutropenic fever), Start date: 01/20/17 2:00:00 HEAD OF TALENT MANAGEMENT, Duration: 30 day, Stop date: 02/18/17 18:00:00 CDTNotes: (Same as: Maxipime) MEDICATION WASTE Product Size: 2000 mg Product Wasted: ___ mg No Longer Active 01/20/2017 [facility] Lancets 1 box, MISC, Daily, # 1 box, 0 Refill(s) Active 09/20/2016 [facility] Syringes for Injection Misc/Other 1 ea, MISC, Daily, # 30 ea, 11 Refill(s) Active 09/20/2016 [facility] Acura Blood Glucose Test Strips 1 ea, MISC, TID, Use for blood glucose monitoring., # 100 ea, Insulin dependent, Does not use insulin pump, Last DM eval date 09/20/16, 11 Refill(s) Active 09/20/2016 [facility] [place] for Injection Syringe Misc/Other 1 ea, MISC, Daily, # 30 ea, 11 Refill(s) Active 09/20/2016 [facility] insulin isophane (NPH) 100 units/mL human recombinant subcutaneous suspension 30 unit, SUB-Q, BID, # 20 mL, 3 Refill(s) Active 09/20/2016 [facility] amLODIPine 10 mg oral tablet 10 mg=1 tab, PO, Daily, # 90 tab, 3 Refill(s) Active 09/20/2016 [facility] Metronidazole 500 MG Oral Tablet 500 mg=1 tab, PO, Q8H, X 14 day, # 42 tab, 0 Refill(s) Active 09/20/2016 [facility] Metformin hydrochloride 1000 MG Oral Tablet 1,000 mg, PO, BID, # 180 tab, 3 Refill(s) Active 09/20/2016 [facility] ciprofloxacin 100 mg oral tablet 400 mg, PO, Q12H, for UTI, X 30 day, # 240 tab, 0 Refill(s) Active 09/20/2016 [facility] Flagyl 500 mg, 1 tab, Route: PO, Drug form: TAB, TID, Dosing Weight 115, kg, Start date: 09/20/16 9:00:00 HEAD OF TALENT MANAGEMENT, Stop date: 10/04/16 9:00:00 CSTNotes: (Same as: Flagyl) Take with food/ avoid alcohol Inactive 09/20/2016 [facility] Amlodipine 5 mg, 1 tab, Route: PO, Drug form: TAB, Daily, Dosing Weight 115, kg, Start date: 09/20/16 9:00:00 HEAD OF TALENT MANAGEMENT, Duration: 30 day, Stop date: 10/19/16 9:00:00 CSTNotes: (Same as: Norvasc) Inactive 09/20/2016 [facility] Tylenol 650 mg, 2 tab, Route: PO, Drug form: TAB, Q6H, Dosing Weight 115, kg, PRN Pain Score 1-3, Start date: 09/19/16 19:49:00 HEAD OF TALENT MANAGEMENT, Duration: 30 day, Stop date: 10/19/16 19:48:00 CSTNotes: Do not exceed 4 gm/day. (Same as: Tylenol) No Longer Active 09/20/2016 [facility] insulin, isophane 30 unit, 0.3 mL, Route: SUB-Q, Drug form: INJ, BID, Dosing Weight 115, kg, Start date: 09/19/16 17:00:00 HEAD OF TALENT MANAGEMENT, Duration: 30 day, Stop date: 10/19/16 9:00:00 CSTNotes: Roll in palms of hands gently; Do not shake vigorously. (Same as: NovoLIN N, Humulin N) Do not hold insulin without contacting prescriber "single patient use only" WASTE: F/P - Black; E - Municipal Trash Bin Stable for 14 days at room temperature Expires in days from Date No Longer Active 09/19/2016 [facility] Ciprofloxacin 400 mg, 200 mL, Route: IVPB, Drug form: INJ, [id number], Dosing Weight 115, kg, Start date: 09/19/16 16:00:00 HEAD OF TALENT MANAGEMENT, Duration: 30 day, Stop date: 10/19/16 4:00:00 CSTNotes: Do not refrigerate No Longer Active 09/19/2016 [facility] Cefazolin 2 gm, 100 mL, Route: IVPB, Drug form: INJ, [id number], Dosing Weight 115, kg, Start date: 09/16/16 18:00:00 CDT, Duration: 30 day, Stop date: 10/16/16 14:00:00 CSTNotes: Same as: Ancef No Longer Active 09/16/2016 [facility] Atropine 0.5 mg, 5 mL, Route: IVP, Drug form: INJ, ONCE, Dosing Weight 115, kg, PRN Bradycardia, Start date: 09/16/16 0:13:00 CDT, Symptomatic bradycardia with a rate of No Longer Active 09/16/2016 [facility] Nitroglycerin 0.4 MG Sublingual Tablet 0.4 mg, 1 tab, Route: SL, Drug form: TAB, Q5Min, Dosing Weight 115, kg, PRN Chest Pain, Start date: 09/16/16 0:13:00 CDT, Duration: 3 doses or times, Stop date: Limited # of timesNotes: (Same as:Nitroquick, Nitrostat) "Do Not Crush" Sublingual tablet No Longer Active 09/16/2016 [facility] heparin 5,000 unit, 1 mL, Route: SUB-Q, Drug form: INJ, Q12H, Dosing Weight 115, kg, Start date: 09/15/16 21:00:00 CDT, Duration: 30 day, Stop date: 10/15/16 9:00:00 CSTNotes: porcine heparin No Longer Active 09/16/2016 [facility] Vancomycin 1,000 mg, Route: IVPB, [id number], Dosing Weight 115, kg, Start date: 09/15/16 19:00:00 CDT, Duration: 30 day, Stop date: 10/15/16 7:00:00 CSTNotes: TIME CRITICAL MEDICATION (Same As: Vancocin) Infusio n rate 2001 mg: infuse over 2.5 hours MEDICATION WASTE Product Size: 1000 mg Product Wasted: ___ mg No Longer Active 09/16/2016 [facility] lidocaine topical 2% gel with applicator 1 appl, Route: TOP, Drug Form: GEL, Dosing Weight 115, kg, ONCE, STAT, Start date: 09/15/16 17:23:00 CDT, Stop date: 09/15/16 17:23:00 CDTNotes: (Same as: Xylocaine Winsome Tapia) Inactive 09/15/2016 [facility] Humalog 8 unit, Route: SUB-Q, TID-Before Meals, Dosing Weight 115, kg, Start date: 09/15/16 16:30:00 CDT, Duration: 30 day, Stop date: 10/15/16 11:30:00 HEAD OF TALENT MANAGEMENT Inactive 09/15/2016 [facility] NovoLOG FlexPen 8 unit, 0.08 mL, [...] days from Date No Longer Active 09/15/2016 [facility] Magnesium Sulfate 2 gm, 50 mL, Route: IVPB, Drug form: INJ, ONCE, Dosing Weight 115, kg, Start date: 09/15/16 9:23:00 CDT, Duration: 2 hr, Stop date: 09/15/16 9:23:00 CDTNotes: WASTE: F/P - Sink; E - Municipal Trash Bin Inactive 09/15/2016 [facility] Insulin, Aspart, Human 4 unit, 0.04 [...] days from Date No Longer Active 09/15/2016 [facility] Levemir 10 unit, 0.1 mL, Route: SUB-Q, Drug form: INJ, Daily, Dosing Weight 115, kg, Priority: NOW, Start date: 09/15/16 9:01:00 CDT, Duration: 30 day, Stop date: 10/15/16 9:00:00 CSTNotes: Same as Levemir Do not hold insulin without contacting prescriber WASTE: F/P - Black; E - Municipal Trash Bin "single patient use only" No Longer Active 09/15/2016 [facility] influenza virus vaccine, inactivated 0.5 mL, Route: IM, Drug Form: SUSP, Daily, Start date: 09/15/16 9:00:00 CDT, Duration: 1 doses or times, Stop date: 09/15/16 9:00:00 CDTNotes: (Same as: Fluzone Quadrivalent, Fluarix Quadrivalent) For 3 years of age and older (0.5 mL IM) Shake well before use Inactive 09/15/2016 [facility] pneumococcal capsular polysaccharide type 1 vaccine / pneumococcal capsular polysaccharide type 10A vaccine / pneumococcal capsular polysaccharide type 11A vaccine / pneumococcal capsular polysaccharide type 12F vaccine / pneumococcal capsular polysacchar 0.5 mL, Route: IM, Daily, Start date: 09/15/16 9:00:00 CDT, Duration: 1 doses or times, Stop date: 09/15/16 9:00:00 CDT Inactive 09/15/2016 [facility] Metformin 1,000 mg, PO, BID, 0 Refill(s) No Longer Active 09/15/2016 [facility] Calcium Gluconate 1,000 mg, 10 mL, Route: IVPB, ONCE, Dosing Weight 111.364, kg, Start date: 09/15/16 7:28:00 CDT, Stop date: 09/15/16 7:28:00 CDTNotes: WASTE: F/P - Sink; E - Municipal Trash Bin Inactive 09/15/2016 [facility] Insulin, Aspart, Human 5 unit, 0.05 [...] Expires in days from Date Inactive 09/15/2016 [facility] Dextrose 50% Syringe 12.5 gm, 25 mL, Route: IVP, Drug Form: INJ, Dosing Weight 111.364, kg, PRN, PRN Blood Glucose Results, Start date: 09/15/16 4:50:00 CDT, Duration: 30 day, Stop date: 10/15/16 3:49:00 [employer]NAG[employer] No Longer Active 09/15/2016 [facility] Glucagon 1 mg, Route: IM, Drug form: PDR/INJ, PRN, Dosing Weight 111.364, kg, PRN Blood Glucose Results, Start date: 09/15/16 4:50:00 CDT, Duration: 30 day, Stop date: 10/15/16 3:49:00 [employer]NAG[employer] No Longer Active 09/15/2016 [facility] Sodium Chloride 0.154 MEQ/ML Injectable Solution 1,000 mL, Rate: 125 ml/hr, Infuse over: 8 hr, Route: IV, Dosing Weight 111.364 kg, Total Volume: 1,000, Start date: 09/15/16 4:32:00 CDT, Duration: 30 day, Stop date: 10/15/16 4:31:00 [employer]NAG[employer] No Longer Active 09/15/2016 [facility] Saline Flush 0.9% 10 ml, Route: IVP, Drug Form: INJ, Dosing Weight 111.364, kg, PRN, PRN Line Flush, Start date: 09/15/16 4:32:00 CDT, Duration: 30 day, Stop date: 10/15/16 3:31:00 CSTNotes: (Same as: BD Posiflush) No Longer Active 09/15/2016 [facility] Vancomycin 1 gm, Route: IVPB, [id number], Dosing Weight 111.364, kg, Priority: STAT, Start date: 09/15/16 4:32:00 CDT, Duration: 30 day, Stop date: 10/14/16 18:00:00 CSTNotes: TIME CRITICAL MEDICATION (Same As: Vancocin) Infusion rate 2001 mg: infuse over 2.5 hours MEDICATION WASTE Product Size: 1000 mg Product Wasted: ___ mg Inactive 09/15/2016 [facility] Docusate 100 mg, 1 cap, Route: PO, Drug form: CAP, BID, Dosing Weight 111.364, kg, PRN Constipation, Start date: 09/15/16 4:32:00 CDT, Duration: 30 day, Stop date: 10/15/16 4:31:00 CSTNotes: (Same as: Colace) (Do Not Crush) No Longer Active 09/15/2016 [facility] Ondansetron 4 mg, 2 mL, Route: IVP, Drug form: INJ, Q6H, Dosing Weight 111.364, kg, PRN Nausea & Vomiting, Start date: 09/15/16 4:32:00 CDT, Duration: 30 day, Stop date: 10/15/16 4:31:00 CSTNotes: (Same as: Zofran) MEDICATION WASTE Product Size: 4 mg Product Wasted: ___ mg No Longer Active 09/15/2016 [facility] Sodium Chloride 0.154 MEQ/ML Injectable Solution 1,000 mL, 1,000 ml/hr, Infuse Over: 1 hr, Route: IV, 1,000, Drug form: INJ, ONCE, Priority: STAT, Dosing Weight 111.364 kg, Start date: 09/15/16 3:07:00 CDT, Duration: 1 doses or times, Stop date: 09/15/16 3:07:00 CDT Inactive 09/15/2016 [facility] potassium chloride 10 mEq, 100 mL, Route: IVPB, Drug form: INJ, Q1H, Dosing Weight 111.364, kg, Total Dose=20 meq, Start date: 09/15/16 3:00:00 CDT, Duration: 2 doses or times, Stop date: 09/15/16 4:00:00 CDT, Peripheral LineNotes: Infuse at a rate of 10 mEq/hr. (Same as: KCL) Inactive 09/15/2016 [facility] Sodium Chloride 0.154 MEQ/ML Injectable Solution 1,000 mL, 2,000 ml/hr, Infuse Over: 30 minutes, Route: IV, ONCE, Priority: STAT, Dosing Weight 111.364 kg, Start date: 09/15/16 2:30:00 CDT, Duration: 1 doses or times, Stop date: 09/15/16 2:30:00 CDT Inactive 09/15/2016 [facility] Aztreonam 1 gm, Route: IV, ONCE, Dosing Weight 111.364, kg, Start date: 09/15/16 2:29:00 CDT, Stop date: 09/15/16 2:29:00 CDTNotes: (Same As: Azactam) Inactive 09/15/2016 [facility] Vancomycin 2,000 mg, Route: IVPB, ONCE, Dosing Weight 111.364, kg, Priority: STAT, Start date: 09/15/16 2:29:00 CDT, Stop date: 09/15/16 2:29:00 CDTNotes: TIME CRITICAL MEDICATION (Same As: Vancocin) Infusion rate 2001 mg: infuse over 2.5 hours MEDICATION WASTE Product Size: 1000 mg Product Wasted: ___ mg Inactive 09/15/2016 [facility] Dextrose 50% Syringe 12.5 gm, 25 mL, Route: IVP, Drug Form: INJ, Dosing Weight 111.364, kg, PRN, PRN Blood Glucose Results, Start date: 09/15/16 1:41:00 CDT, Duration: 30 day, Stop date: 10/15/16 0:40:00 HEAD OF [employer]NAGEMENT Inactive 09/15/2016 [facility] potassium chloride 20 mEq, Route: IVPB, ONCE, Dosing Weight 111.364, kg, Priority: STAT, Start date: 09/15/16 1:41:00 CDT, Stop date: 09/15/16 1:41:00 CDT Inactive 09/15/2016 [facility] Glucagon 1 mg, Route: IM, Drug form: PDR/INJ, PRN, Dosing Weight 111.364, kg, PRN Blood Glucose Results, Start date: 09/15/16 1:41:00 CDT, Duration: 30 day, Stop date: 10/15/16 0:40:00 HEAD [employer] MANAGEMENT Inactive 09/15/2016 [facility] Ondansetron 4 mg, Route: IVP, ONCE, Dosing Weight 111.364, kg, Priority: STAT, Start date: 09/15/16 1:41:00 CDT, Stop date: 09/15/16 1:41:00 CDT Inactive 09/15/2016 [facility] Insulin regular 5 unit, Route: IVP, ONCE, Dosing Weight 111.364, kg, Loading Dose, Priority: STAT, Start date: 09/15/16 1:41:00 CDT, Stop date: 09/15/16 1:41:00 CDT Inactive 09/15/2016 [facility] Saline Flush 0.9% 10 mL, Route: IVP, Drug Form: INJ, Dosing Weight 111.364, kg, PRN, PRN Line Flush, Start date: 09/15/16 1:41:00 CDT, Duration: 30 day, Stop date: 10/15/16 0:40:00 CSTNotes: (Same as: BD Posiflush) Inactive 09/15/2016 [facility] Sodium Chloride 0.154 MEQ/ML Injectable Solution 1,000 mL, 2,000 ml/hr, Infuse Over: 30 minutes, Route: IV, ONCE, Priority: STAT, Dosing Weight 111.364 kg, Start date: 09/15/16 1:27:00 CDT, Duration: 1 doses or times, Stop date: 09/15/16 1:27:00 CDT Inactive 09/15/2016 [facility] Ondansetron 4 mg, Route: IVP, Drug form: INJ, ONCE, Dosing Weight 111.364, kg, Priority: STAT, Start date: 09/15/16 0:46:00 CDT, Stop date: 09/15/16 0:46:00 CDT Inactive 09/15/2016 [facility] Metformin hydrochloride 1000 MG Oral Tablet 1,000 mg, PO, BID, # 60 tab, 0 Refill(s) Active 06/22/2016 [facility] [place] for Injection Syringe Misc/Other 1 ea, MISC, Daily, # 30 ea, 11 Refill(s) Active 06/22/2016 [facility] 3 ML insulin detemir 100 UNT/ML Prefilled Syringe [Levemir] 20 unit, SUB-Q, Bedtime, # 1 pen(s), 3 Refill(s) Active 06/22/2016 [facility] Cephalexin 500 MG Oral Capsule [Keflex] 500 mg=1 cap, PO, QID, X 10 day, # 40 cap, 0 Refill(s) Active 06/22/2016 [facility] amLODIPine 5 mg oral tablet 5 mg=1 tab, PO, Daily, # 30 tab, 0 Refill(s) Active 06/22/2016 [facility] Vancomycin 1,000 mg, Route: IVPB, [id number], Dosing Weight 111.534, kg, Start date: 06/20/16 23:00:00 CDT, Duration: 30 day, Stop date: 07/20/16 16:00:00 CDTNotes: TIME CRITICAL MEDICATION (Same As: Vancocin) Infusi on rate 2001 mg: infuse over 2.5 hours MEDICATION WASTE Product Size: 1000 mg Product Wasted: ___ mg No Longer Active 06/21/2016 [facility] Flagyl 500 mg, 100 mL, Route: IVPB, Drug form: INJ, ABXQ8H, Dosing Weight 111.534, kg, Start date: 06/20/16 17:00:00 CDT, Duration: 30 day, Stop date: 07/20/16 9:00:00 CDTNotes: (Same as: Flagyl) Avoid alcohol. No Longer Active 06/20/2016 [facility] cefepime 2 gm, Route: IVPB, ABXQ8H, Dosing Weight 111.534, kg, (CrCl >/=50 ml/min, HYDROMETEOROLOGIST infection or neutropenic fever), Start date: 06/20/16 17:00:00 CDT, Duration: 30 day, Stop date: 07/20/16 9:00:00 CDTNotes: (Same as: Maxipime) MEDICATION WASTE Product Size: 2000 mg Product Wasted: ___ mg No Longer Active 06/20/2016 [facility] NURSE: Please wait for vanco blood drawn before giving dose NURSE: Please wait for vanco blood drawn before giving dose, 1, Drug form: MISC, Route: MISC, ONCE, 06/20/16 1:30:00 CDT, Stop date: 06/20/16 1:30:00 CDT Inactive 06/20/2016 [facility] Levemir FlexPen 20 unit, 0.2 mL, Route: SUB-Q, Drug form: INJ, Bedtime, Start date: 06/19/16 21:00:00 CDT, Duration: 30 day, Stop date: 07/18/16 21:00:00 CDTNotes: Same as Levemir Do not hold insulin without contact ing prescriber WASTE: F/P - Black; E - Municipal Trash Bin "single patient use only" No Longer Active 06/20/2016 [facility] Levemir FlexPen 10 unit, 0.1 mL, Route: SUB-Q, Drug form: INJ, Bedtime, Start date: 06/18/16 21:00:00 CDT, Duration: 30 day, Stop date: 07/17/16 21:00:00 CDTNotes: Same as Levemir Do not hold insulin without contact ing prescriber WASTE: F/P - Black; E - Municipal Trash Bin "single patient use only" No Longer Active 06/19/2016 [facility] Insulin Glargine 100 UNT/ML Injectable Solution [Lantus] 10 unit, Route: SUB-Q, Bedtime, Dosing Weight 111.534, kg, Start date: 06/18/16 21:00:00 CDT, Duration: 30 day, Stop date: 07/17/16 21:00:00 CDT Inactive 06/19/2016 [facility] Amlodipine 5 mg, 1 tab, Route: PO, Drug form: TAB, Daily, Dosing Weight 111.534, kg, Priority: NOW, Start date: 06/18/16 15:13:00 CDT, Duration: 30 day, Stop date: 07/18/16 9:00:00 CDTNotes: (Same as: Norvasc) No Longer Active 06/18/2016 [facility] Insulin, Aspart, Human 1 unit, 0.01 [...] days from Date No Longer Active 06/18/2016 [facility] Metformin 1,000 mg, 2 tab, Route: PO, Drug form: TAB, BID, Dosing Weight 111.534, kg, Start date: 06/17/16 17:00:00 CDT, Duration: 30 day, Stop date: 07/17/16 9:00:00 CDTNotes: (Same as: Glucophage) Take with meal No Longer Active 06/17/2016 [facility] Vancomycin 1,000 mg, Route: IVPB, [id number], Dosing Weight 111.534, kg, Start date: 06/17/16 14:00:00 CDT, Duration: 30 day, Stop date: 07/17/16 2:00:00 CDTNotes: TIME CRITICAL MEDICATION (Same As: Vancocin) Infusi on rate 2001 mg: infuse over 2.5 hours MEDICATION WASTE Product Size: 1000 mg Product Wasted: ___ mg Inactive 06/17/2016 [facility] Lisinopril 10 mg, 1 tab, Route: PO, Drug form: TAB, Daily, Dosing Weight 111.534, kg, Start date: 06/17/16 12:00:00 CDT, Duration: 30 day, Stop date: 07/17/16 9:00:00 CDTNotes: (Same as: Prinivil Zestril) No Longer Active 06/17/2016 [facility] Acetaminophen 325 MG / Hydrocodone Bitartrate 10 MG Oral Tablet [[place] 10/325] 1 tab, Route: PO, Drug Form: TAB, Dosing Weight 111.534, kg, Q4H, PRN Pain Score 1-3, Start date: 06/17/16 9:45:00 CDT, Duration: 30 day, Stop date: 07/17/16 9:44:00 CDTNotes: Do not exceed 4gm/day of acetaminophen. (Same as: [place] 325/10) No Longer Active 06/17/2016 [facility] Atropine 0.5 mg, 5 mL, Route: IVP, Drug form: INJ, ONCE, Dosing Weight 109.091, kg, PRN Bradycardia, Start date: 06/17/16 3:43:00 CDT, Stop date: 06/17/16 3:43:00 CDT Inactive 06/17/2016 [facility] Nitroglycerin 0.4 mg, 1 tab, Route: SL, Drug form: TAB, Q5Min, Dosing Weight 109.091, kg, PRN Chest Pain, Start date: 06/17/16 3:42:00 CDT, Duration: 30 day, Stop date: 07/17/16 3:41:00 CDTNotes: (Same as:Nitroqukarli ck, Nitrostat) "Do Not Crush" Sublingual tablet No Longer Active 06/17/2016 [facility] Insulin, Aspart, Human 8 unit, 0.08 [...] days from Date No Longer Active 06/17/2016 [facility] Dextrose 50% Syringe 12.5 gm, 25 mL, Route: IVP, Drug Form: INJ, Dosing Weight 109.091, kg, PRN, PRN Blood Glucose Results, Start date: 06/17/16 3:16:00 CDT, Duration: 30 day, Stop date: 07/17/16 3:15:00 CDT No Longer Active 06/17/2016 [facility] Glucagon 1 mg, Route: IM, Drug form: PDR/INJ, PRN, Dosing Weight 109.091, kg, PRN Blood Glucose Results, Start date: 06/17/16 3:16:00 CDT, Duration: 30 day, Stop date: 07/17/16 3:15:00 CDT No Longer Active 06/17/2016 [facility] Acetaminophen 650 mg, 2 tab, Route: PO, Drug form: TAB, Q4H, Dosing Weight 109.091, kg, PRN Pain 1-3/Temp > 100.4 F, Start date: 06/17/16 3:16:00 CDT, Duration: 30 day, Stop date: 07/17/16 3:15:00 CDTNotes: Do not exceed 4 gm/day. (Same as: Tylenol) No Longer Active 06/17/2016 [facility] Morphine 2 mg, 1 mL, Route: IVP, Drug form: INJ, Q4H, Dosing Weight 109.091, kg, PRN Pain Score 7-10, Start date: 06/17/16 3:16:00 CDT, Duration: 30 day, Stop date: 07/17/16 3:15:00 CDTNotes: (Same as:MORPhine Sulfate) No Longer Active 06/17/2016 [facility] Ondansetron 4 mg, 2 mL, Route: IVP, Drug form: INJ, Q6H, Dosing Weight 109.091, kg, PRN Nausea & Vomiting, Start date: 06/17/16 3:16:00 CDT, Duration: 30 day, Stop date: 07/17/16 3:15:00 CDTNotes: (Same as: Zofran) MEDICATION WASTE Product Size: 4 mg Product Wasted: ___ mg No Longer Active 06/17/2016 [facility] Sodium Chloride 0.154 MEQ/ML Injectable Solution 3,272.73 mL, 2,000 ml/hr, Route: IV, ONCE, Priority: STAT, Dosing Weight 109.091 kg, Start date: 06/17/16 1:30:00 CDT, Duration: 1 doses or times, Stop date: 06/17/16 1:30:00 CDT, Sepsis dose; round UP Only Inactive 06/17/2016 [facility] Aztreonam 2 gm, Route: IV, ONCE, Dosing Weight 109.091, kg, Priority: STAT, Start date: 06/17/16 1:30:00 CDT, Stop date: 06/17/16 1:30:00 CDTNotes: (Same As: Azactam) Inactive 06/17/2016 [facility] Vancomycin 2 gm, Route: IVPB, ONCE, Dosing Weight 109.091, kg, Priority: STAT, Start date: 06/17/16 1:11:00 CDT, Stop date: 06/17/16 1:11:00 CDTNotes: TIME CRITICAL MEDICATION (Same As: Vancocin) Infusion rate 2 001 mg: infuse over 2.5 hours MEDICATION WASTE Product Size: 1000 mg Product Wasted: ___ mg Inactive 06/17/2016 [facility] potassium chloride 40 mEq, 2 tab, Route: PO, Drug form: ERTAB, ONCE, Dosing Weight 93.295, kg, Start date: 02/25/16 8:52:00 CDT, Stop date: 02/25/16 8:52:00 CDTNotes: (Same as: K-Dur 20) "Do Not Crush" With food and full glass of water Inactive 02/25/2016 [facility] cefepime 1 g injection 1 gm, IV, Q12H, X 10 day, # 10 bag, 0 Refill(s) Active 02/25/2016 [facility] metroNIDAZOLE intravenous solution 500 os=307 mL, IVPB, ABXQ8H, 0 Refill(s) Active 02/25/2016 [facility] vancomycin 1.5 g/250 mL-NaCl 0.9% intravenous solution 1.5 ke=228 mL, IVPB, [id number], 0 Refill(s) Active 02/25/2016 [facility] insulin detemir 100 units/mL subcutaneous solution 30 unit, SUB-Q, BID, 0 Refill(s) Active 02/25/2016 [facility] *RN-Wait for VANC trough draw @ 01:30 on 02/25/16 *RN- Wait for VANC trough draw @ 01:30 on 02/25/16 , ATTN:RN, Drug form: MISC, Route: MISC, ONCE, 02/25/16 1:00:00 CDT, Stop date: 02/25/16 1:00:00 CDT Inactive 02/25/2016 [facility] Saline Flush 0.9% 10 mL, Route: IVP, Drug Form: INJ, Dosing Weight 93.295, kg, Q8H, Start date: 02/24/16 16:00:00 CDT, Duration: 30 day, Stop date: 03/25/16 8:00:00 CDTNotes: (Same as: BD Posiflush) No Longer Active 02/24/2016 [facility] Lidocaine Hydrochloride 10 MG/ML Injectable Solution 5 mL, Route: INTRADERM, Drug Form: INJ, Dosing Weight 93.295, kg, ONCALL, Start date: 02/24/16 15:00:00 CDT, Duration: 30 day, Stop date: 03/25/16 14:59:00 CDTNotes: Preservative free. (Same as: Xylocaine MPF) No Longer Active 02/24/2016 [facility] Saline Flush 0.9% 10 mL, Route: IVP, Drug Form: INJ, Dosing Weight 93.295, kg, PRN, PRN Line Flush, Start date: 02/24/16 14:23:00 CDT, Duration: 30 day, Stop date: 03/25/16 14:22:00 CDTNotes: (Same as: BD Posiflush) No Longer Active 02/24/2016 [facility] Vancomycin 1.5 gm, 250 mL, Route: IVPB, Drug form: INJ, [id number], Dosing Weight 98.636, kg, Start date: 02/23/16 10:30:00 CDT, Duration: 30 day, Stop date: 03/24/16 2:00:00 CDTNotes: TIME CRITICAL MEDICATION Same as: Vancocin-NS (premixed) Infusion rate 2001 mg: infuse over 2.5 hours No Longer Active 02/23/2016 [facility] insulin detemir 30 unit, 0.3 mL, Route: SUB-Q, Drug form: INJ, BID, Dosing Weight 98.636, kg, Start date: 02/22/16 21:00:00 CDT, Duration: 30 day, Stop date: 03/23/16 9:00:00 CDTNotes: Same as Levemir Do not hold insulin without contacting prescriber WASTE: F/P - Black; E - Municipal Trash Bin "single patient use only" No Longer Active 02/23/2016 [facility] Please do not give Vanco prior to trough is collected Please do not give Vanco prior to trough is collected, Reminder, Drug form: MISC, Route: MISC, ONCE, 02/22/16 21:00:00 CDT, Stop date: 02/22/16 21:00:00 CDT Inactive 02/23/2016 [facility] Metformin 500 mg, 1 tab, Route: PO, Drug form: TAB, BID, Dosing Weight 98.636, kg, Start date: 02/22/16 9:00:00 CDT, Duration: 30 day, Stop date: 03/22/16 17:00:00 CDTNotes: (Same as: Glucophage) Take with meal No Longer Active 02/22/2016 [facility] Clindamycin 600 mg, 50 mL, Route: IVPB, Drug form: INJ, ABXQ8H, Dosing Weight 98.636, kg, Start date: 02/21/16 21:00:00 CDT, Duration: 30 day, Stop date: 03/22/16 13:00:00 CDT No Longer Active 02/22/2016 [facility] Vancomycin 1 gm, 250 ml/hr, Route: IV, Dosing Weight 98.636, kg, [id number], Start date: 02/21/16 21:00:00 CDT, Duration: 14 day, Stop date: 03/06/16 10:00:00 CDT, Pharmacy to doseNotes: TIME CRITICAL MEDICATION (Same As: Vancocin) Infusion rate 2001 mg: infuse over 2.5 hours MEDICATION WASTE Product Size: 1000 mg Product Wasted: ___ mg No Longer Active 02/22/2016 [facility] insulin detemir 30 unit, 0.3 mL, Route: SUB-Q, Drug form: INJ, Bedtime, Dosing Weight 98.636, kg, Start date: 02/21/16 21:00:00 CDT, Duration: 30 day, Stop date: 03/21/16 21:00:00 CDTNotes: Same as Levemir Do not hold insulin without contacting prescriber WASTE: F/P - Black; E - Municipal Trash Bin "single patient use only" No Longer Active 02/22/2016 [facility] Morphine 2 mg, 1 mL, Route: IVP, Drug form: INJ, Q4H, Dosing Weight 98.636, kg, PRN Pain Score 7-10, Start date: 02/21/16 17:42:00 CDT, Duration: 30 day, Stop date: 03/22/16 17:41:00 CDTNotes: (Same as:MORPhine Sulfate) No Longer Active 02/21/2016 [facility] Insulin, Aspart, Human 4 unit, 0.04 [...] days from Date No Longer Active 02/21/2016 [facility] Dextrose 50% Syringe 12.5 gm, 25 mL, Route: IVP, Drug Form: INJ, Dosing Weight 98.636, kg, PRN, PRN Blood Glucose Results, Start date: 02/21/16 17:07:00 CDT, Duration: 30 day, Stop date: 03/22/16 17:06:00 CDT No Longer Active 02/21/2016 [facility] Glucagon 1 mg, Route: IM, Drug form: PDR/INJ, PRN, Dosing Weight 98.636, kg, PRN Blood Glucose Results, Start date: 02/21/16 17:07:00 CDT, Duration: 30 day, Stop date: 03/22/16 17:06:00 CDT No Longer Active 02/21/2016 [facility] acetaminophen 325 mg oral tablet 650 mg, 2 tab, Route: PO, Drug form: TAB, Q6H, Dosing Weight 98.636, kg, PRN For Temp > 100.4 F, Start date: 02/21/16 17:05:00 CDT, Duration: 30 day, Stop date: 03/22/16 17:04:00 CDT, feverNotes: Do not exceed 4 gm/day. (Same as: Tylenol) No Longer Active 02/21/2016 [facility] Acetaminophen 325 MG / Hydrocodone Bitartrate 10 MG Oral Tablet [[place] 10/325] 1 tab, Route: PO, Drug Form: TAB, Dosing Weight 98.636, kg, Q4H, PRN Pain Score 1-3, Start date: 02/21/16 17:05:00 CDT, Duration: 30 day, Stop date: 03/22/16 17:04:00 CDTNotes: Do not exceed 4gm/day of acetaminophen. (Same as: [place] 325/10) No Longer Active 02/21/2016 [facility] Metronidazole 500 mg, 100 mL, Route: IVPB, Drug form: INJ, ABXQ8H, Dosing Weight 98.636, kg, Start date: 02/21/16 17:00:00 CDT, Duration: 30 day, Stop date: 03/22/16 13:00:00 CDTNotes: (Same as: Flagyl) Avoid alcohol. No Longer Active 02/21/2016 [facility] cefepime 1 gm, Route: IVPB, ABXQ8H, Dosing Weight 98.636, kg, (CrCl >/=50 ml/min), Start date: 02/21/16 17:00:00 CDT, Duration: 30 day, Stop date: 03/22/16 9:00:00 CDTNotes: (Same As: Maxipime) MEDICATION WASTE Product Size: 1000 mg Product Wasted: ___ mg No Longer Active 02/21/2016 [facility] Metformin 500 mg, PO, BID, 0 Refill(s) Active 02/21/2016 [facility] Clindamycin 600 mg, Route: IVPB, [id number], Dosing Weight 98.636, kg, Priority: STAT, Start date: 02/21/16 14:30:00 CDT, Duration: 30 day, Stop date: 03/22/16 6:30:00 CDT Inactive 02/21/2016 [facility] Insulin, Aspart, Human 8 unit, 0.08 [...] Expires in days from Date Inactive 02/21/2016 [facility] Glucagon 1 mg, Route: IM, Drug form: PDR/INJ, PRN, Dosing Weight 98.636, kg, PRN Blood Glucose Results, Start date: 02/21/16 14:30:00 CDT, Duration: 30 day, Stop date: 03/22/16 14:29:00 CDT Inactive 02/21/2016 [facility] Dextrose 50% Syringe 25 gm, 50 mL, Route: IVP, Drug Form: INJ, Dosing Weight 98.636, kg, PRN, PRN Blood Glucose Results, Start date: 02/21/16 14:30:00 CDT, Duration: 30 day, Stop date: 03/22/16 14:29:00 CDT Inactive 02/21/2016 [facility] Clindamycin 600 mg, 50 mL, Route: IVPB, Drug form: INJ, ONCE, Dosing Weight 98.636, kg, Priority: STAT, Start date: 02/21/16 11:01:00 CDT, Stop date: 02/21/16 11:01:00 CDT Inactive 02/21/2016 [facility] Clindamycin 300 mg, PO, QID, 0 Refill(s) Inactive 02/21/2016 [facility] Sulfamethoxazole 800 MG / Trimethoprim 160 MG Oral Tablet 1 tab, PO, BID, 0 Refill(s) No Longer Active 02/21/2016 [facility] Morphine 4 mg, 2 mL, Route: IVP, Drug form: INJ, ONCE, Dosing Weight 98.636, kg, Priority: STAT, Start date: 02/21/16 7:20:00 CDT, Stop date: 02/21/16 7:20:00 CDTNotes: (Same as:MORPhine Sulfate) Inactive 02/21/2016 [facility] Sodium Chloride 0.154 MEQ/ML Injectable Solution 1,000 mL, 1,000 ml/hr, Infuse Over: 1 hr, Route: IV, 1,000, Drug form: INJ, ONCE, Priority: STAT, Dosing Weight 98.636 kg, Start date: 02/21/16 7:20:00 CDT, Duration: 1 doses or times, Stop date: 02/21/16 7:20:00 CDT Inactive 02/21/2016 [facility] Ondansetron 4 mg, 2 mL, Route: IVP, Drug form: INJ, ONCE, Dosing Weight 98.636, kg, Priority: STAT, Start date: 02/21/16 7:20:00 CDT, Stop date: 02/21/16 7:20:00 CDTNotes: (Same as: [place]) MEDICATION WASTE * Product Size: 4 mg Product Wasted: ___ mg Inactive 02/21/2016 [facility] Vancomycin 1 gm, Route: IVPB, ONCE, Dosing Weight 98.636, kg, Priority: STAT, Start date: 02/21/16 7:20:00 CDT, Stop date: 02/21/16 7:20:00 CDT, TIME CRITICAL MEDICATIONNotes: TIME CRITICAL MEDICATION (Same As: Vancocin) Infusion rate 2001 mg: infuse over 2.5 hours MEDICATION WASTE Product Size: 1000 mg Product Wasted: ___ mg Inactive 02/21/2016 [facility] Acetaminophen 300 MG / Codeine Phosphate 30 MG Oral Tablet [Tylenol with Codeine #3] 1 - 2 tab, PO, Q4H, PRN Pain, X 3 day, # 20 tab, 0 Refill(s) Active 12/29/2015 [facility] normal saline 0.9% IV 1,000 mL 1,000 mL, Rate: 100 ml/hr, Infuse over: 10 hr, Route: IV, Dosing Weight 99.091 kg, Total Volume: 1,000, Start date: 12/28/15 22:41:00, Duration: 30 day, Stop date: 01/27/16 22:40:00 No Longer Active 12/29/2015 [facility] Insulin regular 10 unit, 0.1 mL, Route: IVP, Drug form: INJ, ONCE, Dosing Weight 99.091, kg, Priority: STAT, Start date: 12/28/15 22:41:00, Stop date: 12/28/15 22:41:00Notes: (Same as: Humulin R and NovoLIN R) WASTE: F/P - Black; E - Municipal Trash Bin (Do not shake) No Longer Active 12/29/2015 [facility] Tylenol 975 mg, Route: PO, Drug form: TAB, ONCE, Dosing Weight 99.091, kg, Priority: STAT, Start date: 12/28/15 17:24:00, Stop date: 12/28/15 17:24:00 Inactive 12/28/2015 [facility] Aspirin 1 tablet Orally Active 81 MG Orally Once a day Fang 06/04/2015 [facility] cefTRIAXone 2 g injection 2 gm, IV, Q24H, X 10 day, # 10 ea, 0 Refill(s) Active 05/03/2015 [facility] acetaminophen 325 mg oral tablet 650 mg=2 tab, PO, Q6H, PRN For Temp > 100.4 F, 0 Refill(s) Active 05/03/2015 [facility] Acetaminophen 325 MG / Hydrocodone Bitartrate 10 MG Oral Tablet [[place] 10/325] 1 tab, PO, Q4H, PRN Pain Score 1-3, 0 Refill(s) Active 05/03/2015 [facility] Sodium Hypochlorite 1.25 MG/ML Topical Solution TOP, Daily, 0 Refill(s) Active 05/03/2015 [facility] Morphine 2 mg=1 mL, IVP, Q4H, PRN Pain Score 4-6, 0 Refill(s) Active 05/03/2015 [facility] Metronidazole 500 MG Oral Tablet 500 mg=1 tab, PO, ABXQ8H, 0 Refill(s) Active 05/03/2015 [facility] insulin detemir 100 units/mL subcutaneous solution 30 unit, SUB-Q, Bedtime, 0 Refill(s) Active 05/03/2015 [facility] Insulin, Aspart, Human 10 unit, SUB-Q, TID-Before Meals, 0 Refill(s) Active 05/03/2015 [facility] glucagon recombinant 1 mg injection 1 mg, IM, PRN, PRN Blood Glucose Results, 0 Refill(s) Active 05/03/2015 [facility] Ancef 1 gm, Route: IVPB, ONCE, Dosing Weight 100, kg, Start date: 04/30/15 7:49:00, Duration: 1 doses or times, Stop date: 04/30/15 7:49:00 Inactive 04/30/2015 [facility] ferric oxide, saccharated 300 mg, 15 mL, Route: IVPB, Drug form: INJ, BID, Dosing Weight 100, kg, Start date: 04/30/15 1:15:00, Duration: 6 doses or times, Stop date: 05/02/15 5:00:00Notes: Each 5ml contains 100mg elemental iron. Mix with NS (Same as:Venofer) Administer IV only. MEDICATION WASTE Product Size: 100 mg Product Wasted: ___ mg No Longer Active 04/30/2015 [facility] potassium chloride 40 mEq, 2 tab, Route: PO, Drug form: ERTAB, Q4H, Dosing Weight 100, kg, Start date: 04/29/15 8:00:00, Duration: 3 doses or times, Stop date: 04/29/15 16:00:00Notes: (Same as: K-Dur 20) "Do Not Crush" With food and full glass of water Inactive 04/29/2015 [facility] Flagyl 500 mg, 1 tab, Route: PO, Drug form: TAB, ABXQ8H, Dosing Weight 100, kg, Start date: 04/29/15 0:00:00, Duration: 30 day, Stop date: 05/28/15 16:00:00Notes: (Same as: Flagyl) Take with food/ avoid alcohol No Longer Active 04/29/2015 [facility] Ceftriaxone 2 gm, Route: IVPB, [id number], Dosing Weight 100, kg, Start date: 04/29/15 0:00:00, Duration: 30 day, Stop date: 05/28/15 0:00:00Notes: (Same As: Rocephin). MEDICATION WASTE Product Size: 200 0 mg Product Wasted: ___ mg No Longer Active 04/29/2015 [facility] Dakins Quarter Strength Solution 1 appl, Route: TOP, Drug Form: SOLN, Dosing Weight 100, kg, Daily, Start date: 04/28/15 9:00:00, Duration: 30 day, Stop date: 05/27/15 9:00:00Notes: (Dakin's (0.125%=1/4 strength) 1000ml top SOLN) For external use only. Note: quarter strength=0.125% sodium hypochlorite. No Longer Active 04/28/2015 [facility] Levemir 30 unit, 0.3 mL, Route: SUB-Q, Drug form: INJ, Bedtime, Dosing Weight 109.091, kg, Start date: 04/27/15 21:00:00, Duration: 30 day, Stop date: 05/26/15 21:00:00Notes: Same as Levemir Do not hold insulin without contacting prescriber "single patient use only" No Longer Active 04/28/2015 [facility] Morphine 2 mg, 1 mL, Route: IVP, Drug form: INJ, Q4H, Dosing Weight 100, kg, PRN Pain Score 4-6, Start date: 04/27/15 7:16:00, Duration: 30 day, Stop date: 05/27/15 7:15:00Notes: (Same as:MORPhine Sulfate) No Longer Active 04/27/2015 [facility] Levemir 10 unit, 0.1 mL, Route: SUB-Q, Drug form: INJ, ONCE, Dosing Weight 100, kg, Start date: 04/27/15 6:41:00, Stop date: 04/27/15 6:41:00Notes: Same as Levemir Do not hold insulin without contacting prescriber "single patient use only" Inactive 04/27/2015 [facility] Acetaminophen 325 MG / Hydrocodone Bitartrate 10 MG Oral Tablet [[place] 10/325] 1 tab, Route: PO, Drug Form: TAB, Dosing Weight 100, kg, Q4H, PRN Pain Score 1-3, Start date: 04/27/15 5:35:00, Duration: 30 day, Stop date: 05/27/15 5:34:00Notes: Do not exceed 4gm/day of acetaminophen. (Same as: [place] 325/10) No Longer Active 04/27/2015 [facility] Acetaminophen 650 mg, 2 tab, Route: PO, Drug form: TAB, Q6H, Dosing Weight 100, kg, PRN For Temp > 100.4 F, Start date: 04/27/15 5:33:00, Duration: 30 day, Stop date: 05/27/15 5:32:00Notes: Do not exceed 4 gm/day. (Same as: Tylenol) No Longer Active 04/27/2015 [facility] meropenem 1,000 mg, Route: IV, Q8H, Dosing Weight 100, kg, Start date: 04/27/15 0:00:00, Duration: 30 day, Stop date: 05/26/15 16:00:00Notes: (Same as: Merrem) . MEDICATION WASTE Product Size: 1000 mg Product Wasted: ___ mg No Longer Active 04/27/2015 [facility] Clindamycin 900 mg, 6 mL, Route: IVPB, Q8H-06, Dosing Weight 100, kg, Start date: 04/26/15 22:00:00, Duration: 30 day, Stop date: 05/26/15 14:00:00Notes: (Same As: Cleocin) No Longer Active 04/27/2015 [facility] Levemir 30 unit, 0.3 mL, Route: SUB-Q, Drug form: INJ, Q12H, Dosing Weight 109.091, kg, Start date: 04/26/15 21:00:00, Duration: 30 day, Stop date: 05/26/15 9:00:00Notes: Same as Levemir Do not hold insulin rj ruggiero contacting prescriber "single patient use only" Inactive 04/27/2015 [facility] Vancomycin 750 mg, 150 mL, Route: IV, Drug form: INJ, Q8H- 05, Dosing Weight 100, kg, Start date: 04/26/15 21:00:00, Duration: 30 day, Stop date: 05/26/15 13:00:00Notes: TIME CRITICAL MEDICATION Same as: Vancocin Infusion rate 2001 mg: infuse over 2.5 hours No Longer Active 04/27/2015 [facility] Vancomycin 1,636.365 mg, Route: IVPB, ABXQ8H, Dosing Weight 109.091, kg, TIME CRITICAL MEDICATION, Start date: 04/26/15 20:00:00, Duration: 30 day, Stop date: 05/26/15 12:00:00 Inactive 04/27/2015 [facility] Glucagon 1 mg, Route: IM, Drug form: PDR/INJ, PRN, Dosing Weight 100, kg, PRN Blood Glucose Results, Priority: STAT, Start date: 04/26/15 19:48:00, Duration: 30 day, Stop date: 05/26/15 19:47:00 No Longer Active 04/27/2015 [facility] Dextrose 50% Syringe 25 gm, 50 mL, Route: IVP, Drug Form: INJ, Dosing Weight 100, kg, PRN, PRN Blood Glucose Results, Start date: 04/26/15 19:48:00, Duration: 30 day, Stop date: 05/26/15 19:47:00 No Longer Active 04/27/2015 [facility] Insulin, Aspart, Human 1 unit, 0.01 [...] Expires in days from Date Inactive 04/27/2015 [facility] Sodium Chloride 0.154 MEQ/ML Injectable Solution 1,000 mL, Rate: 125 ml/hr, Infuse over: 8 hr, Route: IV, Dosing Weight 100 kg, Total Volume: 1,000, Start date: 04/26/15 19:22:00, Duration: 30 day, Stop date: 05/26/15 19:21:00 No Longer Active 04/27/2015 [facility] Saline Flush 0.9% 10 ml, Route: IVP, Drug Form: INJ, Dosing Weight 100, kg, PRN, PRN Line Flush, Start date: 04/26/15 19:22:00, Duration: 30 day, Stop date: 05/26/15 19:21:00Notes: (Same as: BD Posiflush) No Longer Active 04/27/2015 [facility] NovoLog 10 unit, 0.1 mL, Route: SUB-Q, Drug form: SOLN, TID-Before Meals, Dosing Weight 109.091, kg, Start date: 04/26/15 16:30:00, Duration: 30 day, Stop date: 05/26/15 11:30:00Notes: Roll in palms of hands ge ntly; Do not shake vigorously. (Same as: NovoLOG) "single patient use only" Stable for 28 days at room temperature. Expires in days from Date No Longer Active 04/26/2015 [facility] Glucagon 1 mg, Route: IM, Drug form: PDR/INJ, PRN, Dosing Weight 109.091, kg, PRN Blood Glucose Results, Start date: 04/26/15 13:47:00, Duration: 30 day, Stop date: 05/26/15 13:46:00 No Longer Active 04/26/2015 [facility] Insulin, Aspart, Human 3 unit, 0.03 [...] days from Date No Longer Active 04/26/2015 [facility] Dextrose 50% Syringe 25 gm, 50 mL, Route: IVP, Drug Form: INJ, Dosing Weight 109.091, kg, PRN, PRN Blood Glucose Results, Start date: 04/26/15 13:47:00, Duration: 30 day, Stop date: 05/26/15 13:46:00 No Longer Active 04/26/2015 [facility] Insulin regular 10 unit, 0.1 mL, Route: SUB-Q, Drug form: INJ, ONCE, Dosing Weight 109.091, kg, Priority: STAT, Start date: 04/26/15 13:41:00, Stop date: 04/26/15 13:41:00Notes: (Same as: Humulin R and NovoLIN R) (Do not shake) Inactive 04/26/2015 [facility] Aztreonam 1 gm, Route: IV, ONCE, Dosing Weight 109.091, kg, Start date: 04/26/15 12:19:00, Stop date: 04/26/15 12:19:00Notes: (Same As: Azactam) Inactive 04/26/2015 [facility] Vancomycin 1 gm, 200 mL, Route: IVPB, Drug form: INJ, ONCE, Dosing Weight 109.091, kg, Priority: STAT, Start date: 04/26/15 12:18:00, Stop date: 04/26/15 12:18:00Notes: TIME CRITICAL MEDICATION Inactive 04/26/2015 [facility] Sodium Chloride 0.154 MEQ/ML Injectable Solution 1,000 mL, 1000 ml/hr, Infuse Over: 1 hr, Route: IV, 1,000, Drug form: INJ, ONCE, Priority: STAT, Dosing Weight 109.091 kg, Start date: 04/26/15 10:37:00, Duration: 1 doses or times, Stop date: 04/26/15 10:37:00 Inactive 04/26/2015 [facility] Tylenol 650 mg, 2 tab, Route: PO, Drug form: TAB, ONCE, Dosing Weight 109.091, kg, Priority: STAT, Start date: 04/26/15 10:37:00, Stop date: 04/26/15 10:37:00Notes: Do not exceed 4 gm/day. (Same as: Tylenol) Inactive 04/26/2015 [facility] pneumococcal capsular polysaccharide type 1 vaccine / pneumococcal capsular polysaccharide type 10A vaccine / pneumococcal capsular polysaccharide type 11A vaccine / pneumococcal capsular polysaccharide type 12F vaccine / pneumococcal capsular polysacchar 0.5 ml, Route: IM, Drug Form: INJ, Daily, NOW, Start date: 05/09/14 10:33:00, Duration: 1 doses or times, Stop date: 05/09/14 10:33:00Notes: (Same as: Pneumovax 23) Refrigerate Inactive 05/09/2014 [facility] ciprofloxacin 500 mg oral tablet 500 mg=1 tab, PO, Q12H, # 14 tab, 0 Refill(s) Active 05/09/2014 [facility] Acetaminophen 325 MG / Hydrocodone Bitartrate 7.5 MG Oral Tablet [[place] 7.5/325] 1-2 tab, PO, Q4-6H, Pain, # 30 tab, 0 Refill(s) Active 05/09/2014 [facility] Vancomycin 750 mg, 150 mL, Route: IVPB, Drug form: SOLN, ABXQ8H, Dosing Weight 109.091, kg, Start date: 05/05/14 12:30:00, Duration: 30 day, Stop date: 06/04/14 4:30:00Notes: Same as: Vancocin No Longer Active 05/05/2014 [facility] insulin detemir 25 unit, 0.25 mL, Route: SUB-Q, Drug form: INJ, BID, Dosing Weight 109.091, kg, Start date: 05/05/14 9:00:00, Duration: 30 day, Stop date: 06/03/14 17:00:00Notes: Same as Levemir "single patient use only" No Longer Active 05/05/2014 [facility] Silver Sulfadiazine 10 MG/ML Topical Cream [Silvadene] 1 appl, Route: TOP, Daily, Drug form: CRM, Start date: 05/05/14 9:00:00, Duration: 30 day, Stop date: 06/03/14 9:00:00Notes: (Same as: Silvadene) No Longer Active 05/05/2014 [facility] Metformin hydrochloride 1000 MG Oral Tablet 1,000 mg, 2 tab, Route: PO, Drug form: TAB, BID-Meals, Dosing Weight 109.091, kg, Start date: 05/05/14 8:00:00, Duration: 30 day, Stop date: 06/03/14 17:00:00Notes: (Same as: Glucophage) Take with meal No Longer Active 05/05/2014 [facility] Glipizide 10 MG Oral Tablet 10 mg, 1 tab, Route: PO, Drug form: TAB, Before Breakfast, Dosing Weight 109.091, kg, Start date: 05/05/14 7:30:00, Duration: 30 day, Stop date: 06/03/14 7:30:00Notes: (Same as: Glucotrol) 30 min before meals. No Longer Active 05/05/2014 [facility] Flagyl 500 mg, 100 mL, Route: IVPB, Drug form: INJ, ABXQ8H, Dosing Weight 109.091, kg, Start date: 05/05/14 2:00:00, Duration: 30 day, Stop date: 06/03/14 18:00:00Notes: (Same as: Flagyl) Avoid alcohol. No Longer Active 05/05/2014 [facility] cefepime 2 gm, Route: IVPB, ABXQ8H, Dosing Weight 109.091, kg, (CrCl >/=50 ml/min, HYDROMETEOROLOGIST infection or neutropenic fever), Start date: 05/05/14 2:00:00, Duration: 30 day, Stop date: 06/03/14 18:00:00Notes: (Same as: Maxipime) No Longer Active 05/05/2014 [facility] Ciprofloxacin 500 mg, 1 tab, Route: PO, Drug form: TAB, Q12H, Dosing Weight 109.091, kg, Start date: 05/04/14 21:00:00, Duration: 30 day, Stop date: 06/03/14 9:00:00Notes: May interfere w/enteral feedings - Take 1 hr before or 2 hrs after antacids, dairy pdt & minerals. On empty stomach. No Longer Active 05/05/2014 [facility] Acetaminophen 325 MG / Hydrocodone Bitartrate 5 MG Oral Tablet [[place] 5/325] 2 tab, Route: PO, Drug Form: TAB, Dosing Weight 109.091, kg, Q6H, PRN Pain Score 4-6, Start date: 05/04/14 17:57:00, Duration: 30 day, Stop date: 06/03/14 17:56:00Notes: (Same as: [place] 325/5) Do not exceed 4gm/day of acetaminophen. No Longer Active 05/04/2014 [facility] Acetaminophen 325 MG / Hydrocodone Bitartrate 10 MG Oral Tablet 1 tab, Route: PO, Drug Form: TAB, Dosing Weight 109.091, kg, Q4H, PRN Pain Score 4-6, Start date: 05/04/14 13:12:00, Duration: 30 day, Stop date: 06/03/14 13:11:00Notes: Do not exceed 4gm/day of acetaminophen. (Same as: [place] 325/10) Inactive 05/04/2014 [facility] Morphine 2 mg, 1 mL, Route: IVP, Drug form: INJ, Q3H, Dosing Weight 109.091, kg, PRN Pain Score 7-10, Start date: 05/04/14 13:12:00, Duration: 30 day, Stop date: 06/03/14 13:11:00Notes: (Same as:MORPhine Sulfate) No Longer Active 05/04/2014 [facility] Acetaminophen 650 mg, 2 tab, Route: PO, Drug form: TAB, Q4H, Dosing Weight 109.091, kg, PRN Pain 1-3/Temp > 100.4 F, Start date: 05/04/14 13:12:00, Duration: 30 day, Stop date: 06/03/14 13:11:00Notes: Do not exceed 4 gm/day. (Same as: Tylenol) No Longer Active 05/04/2014 [facility] Acetaminophen 325 MG / Hydrocodone Bitartrate 5 MG Oral Tablet 1 tab, Route: PO, Drug Form: TAB, Dosing Weight 109.091, kg, Q4H, PRN Pain Score 1-3, Start date: 05/04/14 13:12:00, Duration: 30 day, Stop date: 06/03/14 13:11:00Notes: (Same as: [place] 325/5) Do not exceed 4gm/day of acetaminophen. No Longer Active 05/04/2014 [facility] Ondansetron 4 mg, 2 mL, Route: IVP, Drug form: INJ, Q8H, Dosing Weight 109.091, kg, PRN Nausea & Vomiting, Start date: 05/04/14 13:12:00, Duration: 30 day, Stop date: 06/03/14 13:11:00Notes: (Same as: Zofran) No Longer Active 05/04/2014 [facility] Docusate 100 mg, 1 cap, Route: PO, Drug form: CAP, BID, Dosing Weight 109.091, kg, PRN Constipation, Start date: 05/04/14 13:12:00, Duration: 30 day, Stop date: 06/03/14 13:11:00Notes: (Same as: Colace) (Do Not Crush) No Longer Active 05/04/2014 [facility] cefepime 1 gm, Route: IVPB, ONCE, Dosing Weight 109.091, kg, Priority: STAT, Start date: 05/04/14 11:58:00, Stop date: 05/04/14 11:58:00Notes: (Same As: Maxipime) Inactive 05/04/2014 [facility] Vancomycin 2,250 mg, Route: IVPB, ONCE, Dosing Weight 109.091, kg, Priority: STAT, Start date: 05/04/14 11:58:00, Stop date: 05/04/14 11:58:00Notes: (Same As: Vancocin) Inactive 05/04/2014 [facility] ciprofloxacin 500 mg oral tablet 500 mg=1 tab, PO, Q12H, # 20 tab, 0 Refill(s) No Longer Active 05/01/2014 [facility] DAPTOmycin + Sodium Chloride 0.9% IV 50 mL 670 mg, Route: IVPB, Drug form: INJ, Q24H, Dosing Weight 112.273, kg, Start date: 04/26/14 8:00:00, Duration: 30 day, Stop date: 05/25/14 8:00:00Notes: To be mixed with NS and run over 30min. (Same As: Cubicin) Restricted use to Infectious Disease Physicians. No Longer Active 04/26/2014 [facility] lisinopril 20 mg tablet take by oral route Active 20 by oral route Hasan 02/19/2013 [id number] metformin 1,000 mg tablet take by oral route Active 1,000 by oral route Hasan 02/19/2013 [id number] sterile water 2.2 mL, Route: IV, Drug Form: INJ, ONCE, Start date: 02/12/13 9:33:00, Stop date: 02/12/13 9:33:00 IV Active Asa 02/12/2013 [facility] alteplase 4 mg, 4 mL, Route: IV, Drug form: INJ, ONCE, Start date: 02/12/13 9:33:00, Stop date: 02/12/13 9:33:00 IV Active Asa 02/12/2013 [facility] Levaquin 500 mg, 100 mL, Route: IVPB, Drug form: INJ, Daily, Start date: 02/08/13 9:00:00, Duration: 30 day, Stop date: 04/08/13 9:00:00 IVPB No Longer Active [facility] 02/08/2013 [facility] vancomycin 1.5 gm, 250 mL, Route: IVPB, Drug form: INJ, Daily, Dosing Weight 109.091, kg, Start date: 02/08/13 9:00:00, Duration: 30 day, Stop date: 04/08/13 9:00:00 IVPB No Longer Active [facility] 02/08/2013 [facility] Prinivil 20 mg, 1 tab, Route: PO, Drug form: TAB, Daily, Dosing Weight 109.091, kg, Priority: Routine, Start date: 02/08/13 9:00:00, Duration: 30 day, Stop date: 03/09/13 9:00:00 PO No Longer Active [facility] 02/08/2013 [facility] Levemir FlexPen 30 unit, 0.3 mL, Route: SUB-Q, Drug form: INJ, Daily, Start date: 02/08/13 9:00:00, Duration: 30 day, Stop date: 03/09/13 9:00:00 SUB-Q No Longer Active [facility] 02/08/2013 [facility] Lovenox 40 mg, 0.4 mL, Route: SUB-Q, Drug form: INJ, [id number], Dosing Weight 109.091, kg, Start date: 02/07/13 16:00:00, Duration: 30 day, Stop date: 03/08/13 16:00:00 SUB-Q No Longer Active [facility] 02/07/2013 [facility] cefepime + Sodium Chloride 0.9% IV 100 mL 2 gm, Route: IVPB, [id number], Dosing Weight 109.091, kg, (CrCl 30 - 49 ml/min, HYDROMETEOROLOGIST infection or neutropenic fever), Start date: 02/07/13 15:00:00, Duration: 30 day, Stop date: 03/09/13 3:00:00 IVPB No Longer Active [facility] 02/07/2013 [facility] vancomycin 1.5 gm, 250 mL, Route: IVPB, Drug form: INJ, [id number], Dosing Weight 109.091, kg, Start date: 02/07/13 13:00:00, Duration: 30 day, Stop date: 03/09/13 1:00:00 IVPB No Longer Active [facility] 02/07/2013 [facility] alteplase 2 mg, 2 mL, Route: IV, Drug form: INJ, ONCALL, Start date: 02/07/13 13:00:00, Duration: 1 day, Stop date: 02/08/13 12:59:00 IV No Longer Active [facility] 02/07/2013 [facility] NovoLog FlexPen 3 unit, 0.03 mL, Route: SUB-Q, Drug form: SOLN, Bedtime, Dosing Weight 109.091, kg, PRN Blood Glucose Results, Start date: 02/07/13 12:31:00, Duration: 30 day, Stop date: 03/09/13 12:30:00 SUB-Q No Longer Active [facility] 02/07/2013 [facility] NovoLog FlexPen 2 unit, 0.02 mL, Route: SUB-Q, Drug form: SOLN, Bedtime, Dosing Weight 109.091, kg, PRN Blood Glucose Results, Start date: 02/07/13 12:30:00, Duration: 30 day, Stop date: 03/09/13 12:29:00 SUB-Q No Longer Active [facility] 02/07/2013 [facility] NovoLog FlexPen 6 unit, 0.06 mL, Route: SUB-Q, Drug form: SOLN, TID-Before Meals, Dosing Weight 109.091, kg, PRN Blood Glucose Results, Start date: 02/07/13 12:29:00, Duration: 30 day, Stop date: 03/09/13 12:28:00 SUB-Q No Longer Active [facility] 02/07/2013 [facility] glucagon 1 mg, Route: IM, Drug form: PDR/INJ, PRN, Dosing Weight 109.091, kg, PRN Blood Glucose Results, Start date: 02/07/13 12:28:00, Duration: 30 day, Stop date: 03/09/13 12:27:00 IM No Longer Active [facility] 02/07/2013 [facility] Benadryl 25 mg, 1 tab, Route: PO, Drug form: TAB, TID, Dosing Weight 109.091, kg, PRN Itching, Start date: 02/07/13 12:27:00, Duration: 30 day, Stop date: 03/09/13 12:26:00 PO No Longer Active [facility] 02/07/2013 [facility] Dextrose 50% Syringe 25 gm, 50 mL, Route: IVP, Drug Form: INJ, Dosing Weight 109.091, kg, PRN, PRN Blood Glucose Results, Start date: 02/07/13 12:27:00, Duration: 30 day, Stop date: 03/09/13 12:26:00 IVP No Longer Active [facility] 02/07/2013 [facility] Dextrose 50% Syringe 12.5 gm, 25 mL, Route: IVP, Drug Form: INJ, Dosing Weight 109.091, kg, PRN, PRN Blood Glucose Results, Start date: 02/07/13 12:23:00, Duration: 30 day, Stop date: 03/09/13 12:22:00 IVP No Longer Active [facility] 02/07/2013 [facility] acetaminophen-hydrocodone 325 mg-5 mg oral tablet 1 tab, Route: PO, Drug Form: TAB, Dosing Weight 109.091, kg, Q4H, PRN Pain Score 1-3, Start date: 02/07/13 11:43:00, Duration: 30 day, Stop date: 03/09/13 11:42:00 PO No Longer Active [facility] 02/07/2013 [facility] acetaminophen-hydrocodone 325 mg-10 mg oral tablet 1 tab, Route: PO, Drug Form: TAB, Dosing Weight 109.091, kg, Q4H, PRN Pain Score 4-6, Start date: 02/07/13 11:43:00, Duration: 30 day, Stop date: 03/09/13 11:42:00 PO No Longer Active [facility] 02/07/2013 [facility] Tylenol 650 mg, 20.3 mL, Route: PO, Drug form: LIQ, Q4H, Dosing Weight 109.091, kg, PRN Pain 1-3/Temp > 100.4 F, Start date: 02/07/13 11:43:00, Duration: 30 day, Stop date: 03/09/13 11:42:00 PO No Longer Active [facility] 02/07/2013 [facility] alteplase 2 mg, 2 mL, Route: IV, Drug form: INJ, ONCALL, Start date: 02/07/13 11:00:00, Duration: 1 day, Stop date: 02/08/13 10:59:00 IV No Longer Active [facility] 02/07/2013 [facility] alteplase 2 mg, 2 mL, Route: IV, Drug form: INJ, ONCE, Start date: 02/07/13 10:15:00, Stop date: 02/07/13 10:15:00 IV No Longer Active [facility] 02/07/2013 [facility] alteplase 2 mg, 2 mL, Route: IV, Drug form: INJ, ONCE, Start date: 02/07/13 10:12:00, Stop date: 02/07/13 10:12:00 IV No Longer Active [facility] 02/07/2013 [facility] acetaminophen-hydrocodone 325 mg-5 mg oral tablet 1 tab, PO, Q4H, PRN, 30 tab, Pain Score 1-3, Substitution Allowed, Maintenance, TAB PO Active [facility] 02/07/2013 [facility] metFORmin 1000 mg oral tablet 1,000 mg, 1 tab, PO, BID, 60 tab, Substitution Allowed PO Active [facility] 02/07/2013 [facility] lisinopril 20 mg oral tablet 20 mg, 1 tab, PO, Daily, 30 tab, Substitution Allowed, TAB PO Active [facility] 02/07/2013 [facility] Lactated Ringers Injection IV 1,000 mL 1,000 mL, Rate: 25 ml/hr, Infuse over: 40 hr, Route: IV, kg, Total Volume: 1,000, Start date: 02/05/13 11:21:00, Duration: 2 day, Stop date: 02/07/13 11:20:00 IV No Longer Active [facility] 02/05/2013 [facility] Benadryl 25 mg, 1 tab, Route: PO, Drug form: TAB, TID, Dosing Weight 109.091, kg, PRN Itching, Start date: 02/02/13 16:09:00, Duration: 30 day, Stop date: 03/04/13 16:08:00 PO No Longer Active [facility] 02/02/2013 [facility] cefepime + Sodium Chloride 0.9% IV 100 mL 2 gm, Route: IVPB, [id number], Dosing Weight 109.091, kg, (CrCl 30 - 49 ml/min, HYDROMETEOROLOGIST infection or neutropenic fever), Start date: 02/02/13 15:00:00, Duration: 30 day, Stop date: 03/04/13 3:00:00 IVPB No Longer Active [facility] 02/02/2013 [facility] Levemir FlexPen 10 unit, 0.1 mL, Route: SUB-Q, Drug form: INJ, ONCE, Dosing Weight 109.091, kg, Start date: 02/02/13 12:29:00, Stop date: 02/02/13 12:29:00 SUB-Q No Longer Active [facility] 02/02/2013 [facility] Levemir FlexPen 30 unit, 0.3 mL, Route: SUB-Q, Drug form: INJ, Daily, Start date: 02/02/13 9:00:00, Stop date: 03/03/13 9:00:00 SUB-Q No Longer Active [facility] 02/02/2013 [facility] enoxaparin 40 mg, 0.4 mL, Route: SUB-Q, Drug form: INJ, [id number], Dosing Weight 109.091, kg, Start date: 02/01/13 16:00:00, Duration: 30 day, Stop date: 03/02/13 16:00:00 SUB-Q No Longer Active [facility] 02/01/2013 [facility] cefepime + Sodium Chloride 0.9% IV 100 mL 1 gm, Route: IVPB, [id number], Dosing Weight 109.091, kg, (CrCl 30 - 49 ml/min), Start date: 02/01/13 16:00:00, Duration: 30 day, Stop date: 03/03/13 4:00:00 [facility]PB [facility] lisinopril 20 mg, 1 tab, Route: PO, Drug form: TAB, Daily, Dosing Weight 109.091, kg, Priority: NOW, Start date: 02/01/13 15:31:00, Stop date: 03/03/13 9:00:00 PO No Longer Active [facility] 02/01/2013 [facility] Levemir FlexPen 10 unit, 0.1 mL, Route: SUB-Q, Drug form: INJ, ONCE, Dosing Weight 109.091, kg, Start date: 02/01/13 15:24:00, Stop date: 02/01/13 15:24:00 SUB-Q No Longer Active [facility] 02/01/2013 [facility] Lantus 10 unit, Route: SUB-Q, Drug form: SOLN, Daily, Dosing Weight 109.091, kg, Priority: NOW, Start date: 02/01/13 15:21:00, Duration: 30 day, Stop date: 03/03/13 9:00:00 SUB-Q No Longer Active [facility] 02/01/2013 [facility] insulin aspart 6 unit, 0.06 mL, Route: SUB-Q, Drug form: SOLN, TID-Before Meals, Dosing Weight 109.091, kg, PRN Blood Glucose Results, Start date: 02/01/13 15:19:00, Duration: 30 day, Stop date: 03/03/13 15:18:00 SUB-Q No Longer Active [facility] 02/01/2013 [facility] glucagon 1 mg, Route: IM, Drug form: PDR/INJ, PRN, Dosing Weight 109.091, kg, PRN Blood Glucose Results, Start date: 02/01/13 15:19:00, Duration: 30 day, Stop date: 03/03/13 15:18:00 IM No Longer Active [facility] 02/01/2013 [facility] Dextrose 50% Syringe 25 gm, 50 mL, Route: IVP, Drug Form: INJ, Dosing Weight 109.091, kg, PRN, PRN Blood Glucose Results, Start date: 02/01/13 15:19:00, Duration: 30 day, Stop date: 03/03/13 15:18:00 IVP No Longer Active [facility] [facility] magnesium sulfate 2 gm, 50 mL, Route: IVPB, Drug form: INJ, ONCE, Dosing Weight 109.091, kg, Total dose=2 gm, Start date: 02/01/13 15:18:00, Duration: 1 doses or times, Stop date: 02/01/13 15:18:00 IVPB No Longer Active [facility] 02/01/2013 [facility] insulin glargine 10 unit, Route: SUB-Q, Daily, Dosing Weight 109.091, kg, Start date: 02/01/13 9:00:00, Duration: 30 day, Stop date: 03/02/13 9:00:00 SUB-Q No Longer Active [facility] 02/01/2013 [facility] Levemir FlexPen 10 unit, 0.1 mL, Route: SUB-Q, Drug form: INJ, Daily, Start date: 02/01/13 9:00:00, Duration: 30 day, Stop date: 03/02/13 9:00:00 SUB-Q No Longer Active [facility] 02/01/2013 [facility] vancomycin 1.5 gm, 250 mL, Route: IVPB, Drug form: INJ, [id number], Dosing Weight 109.091, kg, Start date: 02/01/13 0:00:00, Stop date: 03/02/13 12:00:00 IVPB No Longer Active Sarvat 02/01/2013 [facility] clindamycin + Sodium Chloride 0.9% IV 100 mL 900 mg, 6 mL, Route: IVPB, [id number], Dosing Weight 109.091, kg, Start date: 01/31/13 23:00:00, Duration: 30 day, Stop date: 03/02/13 15:00:00 IVPB No Longer Active Asa 02/01/2013 [facility] Cipro 400 mg, 200 mL, Route: IVPB, Drug form: INJ, [id number], Dosing Weight 109.091, kg, Start date: 01/31/13 23:00:00, Duration: 30 day, Stop date: 03/02/13 11:00:00 IVPB No Longer Active [facility] 02/01/2013 [facility] insulin aspart 1 unit, 0.01 mL, Route: SUB-Q, Drug form: SOLN, TID-Before Meals, Dosing Weight 109.091, kg, PRN Blood Glucose Results, Start date: 01/31/13 22:55:00, Duration: 30 day, Stop date: 03/02/13 22:54:00 SUB-Q No Longer Active [facility] 02/01/2013 [facility] Dextrose 50% Syringe 12.5 gm, 25 mL, Route: IVP, Drug Form: INJ, Dosing Weight 109.091, kg, PRN, PRN Blood Glucose Results, Start date: 01/31/13 22:55:00, Duration: 30 day, Stop date: 03/02/13 22:54:00 IVP No Longer Active [facility] 02/01/2013 [facility] glucagon 1 mg, Route: IM, Drug form: PDR/INJ, PRN, Dosing Weight 109.091, kg, PRN Blood Glucose Results, Start date: 01/31/13 22:55:00, Duration: 30 day, Stop date: 03/02/13 22:54:00 IM No Longer Active [facility] 02/01/2013 [facility] tetanus toxoid 0.5 ml, Route: IM, Drug Form: INJ, Dosing Weight 109.091, kg, ONCE, Start date: 01/31/13 22:54:00, Stop date: 01/31/13 22:54:00 IM No Longer Active [facility] 02/01/2013 [facility] ondansetron 4 mg, 2 mL, Route: IVP, Drug form: INJ, ONCE, Dosing Weight 109.091, kg, PRN Nausea & Vomiting, Start date: 01/31/13 22:54:00 IVP No Longer Active [facility] 02/01/2013 [facility] acetaminophen-hydrocodone 325 mg-5 mg oral tablet 1 tab, Route: PO, Drug Form: TAB, Dosing Weight 109.091, kg, Q4H, PRN Pain Score 1-3, Start date: 01/31/13 22:54:00, Duration: 30 day, Stop date: 03/02/13 22:53:00 PO No Longer Active [facility] 02/01/2013 [facility] acetaminophen-hydrocodone 325 mg-10 mg oral tablet 1 tab, Route: PO, Drug Form: TAB, Dosing Weight 109.091, kg, Q4H, PRN Pain Score 4-6, Start date: 01/31/13 22:54:00, Duration: 30 day, Stop date: 03/02/13 22:53:00 PO No Longer Active [facility] 02/01/2013 [facility] morphine Sulfate 2 mg, 1 mL, Route: IVP, Drug form: INJ, Q3H, Dosing Weight 109.091, kg, PRN Pain Score 7-10, Start date: 01/31/13 22:54:00, Duration: 30 day, Stop date: 03/02/13 22:53:00 IVP No Longer Active [place] 02/01/2013 [facility] acetaminophen 650 mg, 20.3 mL, Route: PO, Drug form: LIQ, Q4H, Dosing Weight 109.091, kg, PRN Pain 1-3/Temp > 100.4 F, Start date: 01/31/13 22:54:00, Duration: 30 day, Stop date: 03/02/13 22:53:00 PO No Longer Active [facility] 02/01/2013 [facility] clindamycin + Sodium Chloride 0.9% IV 100 mL 900 mg, 6 mL, Route: IVPB, Drug form: INJ, [id number], Dosing Weight 109.091, kg, Start date: 01/31/13 22:00:00, Duration: 30 day, Stop date: 03/02/13 14:00:00 IVPB No Longer Active [facility] 02/01/2013 [facility] Sodium Chloride 0.9% (Bolus) IV 1,000 mL 1,000 mL, Rate: 1,000 ml/hr, Infuse over: 1 hr, Route: IV, kg, Total Volume: 1,000, Priority: STAT, Start date: 01/31/13 21:08:00, Duration: 1 doses or times, Stop date: 01/31/13 22:07:00, Bolus DoseBolus Dose IV No Longer Active Joseph 02/01/2013 [facility] Insulin regular 10 unit, 0.1 mL, Route: IV, Drug form: INJ, ONCE, Dosing Weight 109.091, kg, Start date: 01/31/13 21:07:00, Stop date: 01/31/13 21:07:00 IV No Longer Active [facility] 02/01/2013 [facility] ciprofloxacin 400 mg, 200 mL, Route: IV, Drug form: INJ, ONCE, Dosing Weight 109.091, kg, Start date: 01/31/13 21:03:00, Stop date: 01/31/13 21:03:00 IV No Longer Active [facility] 02/01/2013 [facility] ibuprofen 200 mg oral tablet 400 mg, 2 tab, PO, Q4H, PRN, as needed for pain, Substitution Allowed PO Active 02/01/2013 [facility] metFORmin 500 mg oral tablet 500 mg, 1 tab, PO, BID, 30 tab, Substitution Allowed PO Active Bar 10/26/2011 [facility] clindamycin 300 mg oral capsule 300 mg, 1 cap, PO, QID, 40 cap, Substitution Allowed PO Active Bar 10/26/2011 [facility] clindamycin 600 mg, Route: IM, ONCE, Priority: STAT, Start date: 10/26/11 11:20:00, Stop date: 10/26/11 11:20:00 IM No Longer Active [place] 10/26/2011 [facility] clindamycin 600 mg, Route: IVPB, ONCE, Priority: STAT, Start date: 10/26/11 11:19:00, Stop date: 10/26/11 11:19:00 IVPB No Longer Active Dipika 10/26/2011 [facility] Triamcinolone Acetonide 1 application to affected area Externally Active 0.1 % Externally Twice a day Hasan [id number] Levemir Flexpen 30 init Subcutaneous Active 100 UNIT/ML Subcutaneous once every night [facility] Ayla Fletcher Vitamin C 1 tablet Orally Active 500 mg Orally daily [facility] Ayla Fletcher NovoLog Flexpen 20 unit Subcutaneous Active 100 UNIT/ML Subcutaneous [facility] each [facility] Met[facility] HCl 1 tablet with meals Orally Active 500 MG Orally Twice a day [facility] Ayla Fletcher Zinc Sulfate 1 tablet by mouth Active 220 mg by mouth daily [facility] Ayla Fletcher Doxycycline Hyclate 1 tablet by mouth Active 100 mg by mouth Twice a day [facility] Ayla Fletcher Allergies, Adverse Reactions, Alerts Substance Category Reaction Severity Reaction type Status Date Reported Comments Source PCN - penicillin Adverse Reaction Info Not Available Adverse Reaction Active 06/04/2015 Ayla Fletcher penicillin Adverse Reaction Info Not Available Adverse Reaction Active 03/07/2017 [id number] Calcipotriene Adverse Reaction Info Not Available Adverse Reaction Active 03/07/2017 [id number] penicillins Assertion Drug allergy Active [facility] Immunizations Immunization Date Given Site Status Last Updated Comments Source pneumococcal 13-valent vaccine 01/25/2017 Not Given [facility] influenza virus vaccine, inactivated 09/15/2016 Right deltoid completed Shazia [facility] pneumococcal 23-valent vaccine 05/09/2014 Left deltoid completed Musa [facility] tetanus toxoid 02/01/2013 Left deltoid completed Renetta [facility] tetanus toxoid 02/01/2013 completed Renetta [facility] Hx influenza vaccine-unspecified<sup>1</sup> 09/22/2012 completed Fatoumata Admin Note: received at [facility] Hx influenza vaccine-unspecified<sup>1</sup> 09/22/2012 jerry Ham 1received at [facility] Results Order Name Results Value Reference Range [...] should be multiplied by the estimated BMI. [facility] CHEM PANEL Chloride Lvl 99 95 - 109 01/27/2017 [facility] CHEM PANEL CO2 28 24 - 32 01/27/2017 [facility] CHEM PANEL Calcium Lvl 8.5 8.5 - 10.5 01/27/2017 [facility] CHEM PANEL Sodium Lvl 135 135 - 145 01/27/2017 [facility] CHEM PANEL Glucose Lvl 193 70 - 99 01/27/2017 [facility] CHEM PANEL BUN 13 7 - 22 01/27/2017 [facility] CHEM PANEL Creatinine Lvl 0.73 0.50 - 1.40 01/27/2017 [facility] CHEM PANEL Potassium Lvl 4.0 3.5 - 5.1 01/27/2017 [facility] CHEM PANEL AGAP 12.0 10.0 - 20.0 01/27/2017 [facility] HEMATOLOGY Segs-Bands # 3.1 1.5 - 8.1 01/27/2017 [facility] HEMATOLOGY Basophils # 0.1 0.0 - 0.2 01/27/2017 [facility] HEMATOLOGY Lymphocytes # 1.7 1.0 - 5.5 01/27/2017 [facility] HEMATOLOGY Monocytes # 0.5 0.0 - 0.8 01/27/2017 [facility] HEMATOLOGY Eosinophils # 0.3 0.0 - 0.5 01/27/2017 [facility] HEMATOLOGY Basophils 1.0 0.0 - 1.0 01/27/2017 [facility] HEMATOLOGY Eosinophils 5.3 0.0 - 4.0 01/27/2017 [facility] Lymphocytes 29.8 20.0 - 40.0 01/27/2017 [facility] HEMATOLOGY Monocytes 9.0 2.0 - 12.0 01/27/2017 [facility] HEMATOLOGY Segs 54.9 45.0 - 75.0 01/27/2017 [facility] MPV 10.1 7.4 - 10.4 01/27/2017 [facility] Platelet 250 133 - 450 01/27/2017 [facility] RDW 14.8 11.5 - 14.5 01/27/2017 [facility] MCHC 34.6 32.0 - 36.0 01/27/2017 [facility] MCH 30.7 27.0 - 31.0 01/27/2017 [facility] MCV 88.8 80.0 - 94.0 01/27/2017 [facility] Hct 30.5 42.0 - 54.0 01/27/2017 [facility] RBC 3.43 4.70 - 6.10 01/27/2017 [facility] WBC 5.7 3.7 - 10.4 01/27/2017 [facility] Hgb 10.5 14.0 - 18.0 01/27/2017 [facility] CHEM PANEL Creatinine Lvl 0.85 0.50 - 1.40 01/24/2017 [facility] CHEM PANEL Sodium Lvl 136 135 - 145 01/24/2017 [facility] CHEM PANEL Calcium Lvl 8.7 8.5 - 10.5 01/24/2017 [facility] CHEM PANEL CO2 32 24 - 32 01/24/2017 [facility] CHEM PANEL Potassium Lvl 3.8 3.5 - 5.1 01/24/2017 [facility] CHEM PANEL Chloride Lvl 99 95 - 109 01/24/2017 [facility] CHEM PANEL Glucose Lvl 175 70 - 99 01/24/2017 [facility] CHEM PANEL BUN 15 7 - 22 01/24/2017 [facility] CHEM PANEL eGFR 100 01/24/2017 Result [...] should be multiplied by the estimated BMI. [facility] CHEM PANEL AGAP 8.8 10.0 - 20.0 01/24/2017 [facility] HEMATOLOGY Monocytes 10.5 2.0 - 12.0 01/24/2017 [facility] HEMATOLOGY Segs 53.5 45.0 - 75.0 01/24/2017 [facility] HEMATOLOGY Lymphocytes 27.9 20.0 - 40.0 01/24/2017 [facility] HEMATOLOGY Eosinophils 6.6 0.0 - 4.0 01/24/2017 [facility] HEMATOLOGY Basophils 1.5 0.0 - 1.0 01/24/2017 [facility] Segs-Bands # 2.5 1.5 - 8.1 01/24/2017 [facility] HEMATOLOGY Eosinophils # 0.3 0.0 - 0.5 01/24/2017 [facility] HEMATOLOGY Monocytes # 0.5 0.0 - 0.8 01/24/2017 [facility] HEMATOLOGY Lymphocytes # 1.3 1.0 - 5.5 01/24/2017 [facility] Basophils # 0.1 0.0 - 0.2 01/24/2017 [facility] HEMATOLOGY PT 13.7 12.0 - 14.7 01/24/2017 [facility] HEMATOLOGY INR 1.03 0.85 - 1.17 01/24/2017 [facility] HEMATOLOGY Hgb 13.1 14.0 - 18.0 01/24/2017 [facility] Hct 38.0 42.0 - 54.0 01/24/2017 [facility] HEMATOLOGY WBC 4.7 3.7 - 10.4 01/24/2017 [facility] RBC 4.27 4.70 - 6.10 01/24/2017 [facility] RDW 14.9 11.5 - 14.5 01/24/2017 [facility] Platelet 174 133 - 450 01/24/2017 [facility] MCH 30.8 27.0 - 31.0 01/24/2017 [facility] MCHC 34.6 32.0 - 36.0 01/24/2017 [facility] MCV 89.0 80.0 - 94.0 01/24/2017 [facility] HEMATOLOGY MPV 10.0 7.4 - 10.4 01/24/2017 [facility] ELECTROLYTES AGAP 13.6 10.0 - 20.0 01/23/2017 [facility] ELECTROLYTES eGFR 98 01/23/2017 Result Comment: [...] should be multiplied by the estimated BMI. [facility] ELECTROLYTES Glucose Lvl 215 70 - 99 01/23/2017 [facility] ELECTROLYTES Calcium Lvl 8.6 8.5 - 10.5 01/23/2017 [facility] ELECTROLYTES Potassium Lvl 3.6 3.5 - 5.1 01/23/2017 [facility] ELECTROLYTES Chloride Lvl 98 95 - 109 01/23/2017 [facility] ELECTROLYTES CO2 28 24 - 32 01/23/2017 [facility] ELECTROLYTES Sodium Lvl 136 135 - 145 01/23/2017 [facility] ELECTROLYTES Creatinine Lvl 0.90 0.50 - 1.40 01/23/2017 [facility] ELECTROLYTES BUN 15 7 - 22 01/23/2017 [facility] Platelet 155 133 - 450 01/23/2017 [facility] MPV 10.3 7.4 - 10.4 01/23/2017 [facility] MCHC 34.9 32.0 - 36.0 01/23/2017 [facility] MCH 31.0 27.0 - 31.0 01/23/2017 [facility] RDW 15.1 11.5 - 14.5 01/23/2017 [facility] WBC 5.1 3.7 - 10.4 01/23/2017 [facility] HEMATOLOGY Hgb 12.5 14.0 - 18.0 01/23/2017 [facility] HEMATOLOGY MCV 88.9 80.0 - 94.0 01/23/2017 [facility] HEMATOLOGY Hct 35.9 42.0 - 54.0 01/23/2017 [facility] HEMATOLOGY RBC 4.04 4.70 - 6.10 01/23/2017 [facility] HEMATOLOGY Lymphocytes # 1.3 1.0 - 5.5 01/23/2017 [facility] HEMATOLOGY Monocytes # 0.7 0.0 - 0.8 01/23/2017 [facility] HEMATOLOGY Eosinophils # 0.3 0.0 - 0.5 01/23/2017 [facility] HEMATOLOGY Eosinophils 5.4 0.0 - 4.0 01/23/2017 [facility] HEMATOLOGY Basophils 0.9 0.0 - 1.0 01/23/2017 [facility] HEMATOLOGY Lymphocytes 24.8 20.0 - 40.0 01/23/2017 [facility] HEMATOLOGY Monocytes 12.9 2.0 - 12.0 01/23/2017 [facility] HEMATOLOGY Segs-Bands # 2.9 1.5 - 8.1 01/23/2017 [facility] HEMATOLOGY Segs 56.0 45.0 - 75.0 01/23/2017 [facility] HEMATOLOGY Basophils # 0.1 0.0 - 0.2 01/22/2017 [facility] CHEM PANEL Lactic Acid Lvl 1.2 0.5 - 2.2 01/21/2017 [facility] HEMATOLOGY Sed Rate >100 0 - 15 01/21/2017 [facility] IMMUNOLOGY C-REACTIVE PROTEIN 130.0 <=2.9 mg/L 01/21/2017 [facility] URINE AND STOOL UA Urobilinogen <=1.0 mg/dL 0.1 - 1.0 01/21/2017 [facility] URINE AND STOOL UA Color Ltyellow 01/21/2017 [facility] URINE AND STOOL UA [place] Yeast Occasional /HPF None Seen /HPF 01/21/2017 [facility] URINE AND STOOL UA Mucus Few /LPF None Seen /LPF 01/21/2017 [facility] URINE AND STOOL UA Sq Epi None Seen 01/21/2017 [facility] URINE AND STOOL UA Bili Negative *NA* (01/20/17 8:04 PM) Negative 01/21/2017 [facility] URINE AND STOOL UA RBC 11 0 - 2 01/21/2017 [facility] URINE AND STOOL UA WBC <1 0 - 5 01/21/2017 [facility] URINE AND STOOL UA Leuk Est Negative (01/20/17 8:04 PM) Negative 01/21/2017 [facility] URINE AND STOOL UA Blood Large *ABN* (01/20/17 8:04 PM) Negative 01/21/2017 [facility] URINE AND STOOL UA Nitrite Negative (01/20/17 8:04 PM) Negative 01/21/2017 [facility] URINE AND STOOL UA Bacteria Occasional /HPF None Seen /HPF 01/21/2017 [facility] URINE AND STOOL UA Ketones Negative mg/dL Negative mg/dL 01/21/2017 [facility] URINE AND STOOL UA Glucose 500 mg/dL Negative mg/dL 01/21/2017 [facility] URINE AND STOOL UA Turbidity Clear (01/20/17 8:04 PM) Clear 01/21/2017 [facility] URINE AND STOOL UA Protein Negative mg/dL Negative mg/dL 01/21/2017 [facility] URINE AND STOOL UA pH 6.0 5.0 - 8.0 01/21/2017 [facility] URINE AND STOOL UA Spec Grav 1.007 <=1.030 01/21/2017 [facility] CHEM PANEL Lactic Acid Lvl 1.5 0.5 - 2.2 01/21/2017 [facility] CARDIAC ENZYMES CK MB Index 0.5 0.0 - 2.5 01/20/2017 [facility] CARDIAC ENZYMES CK MB 0.6 0.5 - 3.6 01/20/2017 [facility] CARDIAC ENZYMES Troponin-I <0.02 0.00 - 0.40 01/20/2017 [facility] CARDIAC ENZYMES Total CK 122 12 - 191 01/20/2017 [facility] CHEM PANEL Procalcitonin Lvl 0.28 0.00 - 0.10 01/20/2017 [facility] CHEM PANEL Lactic Acid Lvl 2.3 0.5 - 2.2 01/20/2017 [facility] CHEM PANEL B/C Ratio 13 6 - 25 01/20/2017 [facility] CHEM PANEL Total Protein 7.9 6.4 - 8.4 01/20/2017 [facility] CHEM PANEL Albumin Lvl 2.7 3.5 - 5.0 01/20/2017 [facility] CHEM PANEL Globulin 5.2 2.7 - 4.2 01/20/2017 [facility] CHEM PANEL A/G Ratio 0.5 0.7 - 1.6 01/20/2017 [facility] CHEM PANEL ALT 34 0 - 65 01/20/2017 [facility] CHEM PANEL Alk Phos 92 39 - 136 01/20/2017 [facility] CHEM PANEL AST 52 0 - 37 01/20/2017 [facility] CHEM PANEL Bili Total 1.1 0.2 - 1.3 01/20/2017 [facility] HEMATOLOGY PT 14.2 12.0 - 14.7 01/20/2017 [facility] HEMATOLOGY INR 1.08 0.85 - 1.17 01/20/2017 [facility] HEMATOLOGY PTT 33.7 22.9 - 35.8 01/20/2017 [facility] IMMUNOLOGY C-REACTIVE PROTEIN 43.4 <=2.9 mg/L 09/20/2016 [facility] IMMUNOLOGY C-REACTIVE PROTEIN 59.8 <=2.9 mg/L 09/19/2016 [facility] IMMUNOLOGY C-REACTIVE PROTEIN 62.8 <=2.9 mg/L 09/18/2016 [facility] TOXICOLOGY Vanco Tr TND today 09/18/2016 [facility] TOXICOLOGY Vanco Tr 10.1 09/18/2016 [facility] CHEM PANEL eGFR 77 09/16/2016 Result [...] should be multiplied by the estimated BMI. [facility] CHEM PANEL Bili Total 1.0 0.2 - 1.3 09/16/2016 [facility] CHEM PANEL A/G Ratio 0.5 0.7 - 1.6 09/16/2016 [facility] CHEM PANEL ALT 48 0 - 65 09/16/2016 [facility] CHEM PANEL AST 68 0 - 37 09/16/2016 [facility] CHEM PANEL Alk Phos 80 39 - 136 09/16/2016 [facility] CHEM PANEL B/C Ratio 25 6 [...] PANEL AGAP 12.6 10.0 - 20.0 09/16/2016 [facility] CHEM PANEL Creatinine Lvl 1.10 0.50 - 1.40 09/16/2016 [facility] CHEM PANEL Glucose Lvl 250 70 - 99 09/16/2016 [facility] CHEM PANEL BUN 28 7 - 22 09/16/2016 [facility] CHEM PANEL Magnesium Lvl 1.9 1.8 - 2.4 09/16/2016 [facility] CHEM PANEL Phosphorus 2.0 2.5 - 4.5 09/16/2016 [facility] HEMATOLOGY Sed Rate 85 0 - 15 09/16/2016 [facility] HEMATOLOGY Eosinophils # 0.2 0.0 - 0.5 09/16/2016 [facility] HEMATOLOGY Monocytes # 0.8 0.0 - 0.8 09/16/2016 [facility] HEMATOLOGY Lymphocytes # 0.6 1.0 - 5.5 09/16/2016 [facility] HEMATOLOGY Monocytes 15.0 2.0 - 12.0 09/16/2016 [facility] HEMATOLOGY Lymphocytes 13.0 20.0 - 40.0 09/16/2016 [facility] HEMATOLOGY Bands 5.0 0.0 - 11.0 09/16/2016 [facility] HEMATOLOGY Segs 63.0 45.0 - 75.0 09/16/2016 [facility] HEMATOLOGY Basophils # 0.0 0.0 - 0.2 09/16/2016 [facility] HEMATOLOGY Segs-Bands # 3.4 1.5 - 8.1 09/16/2016 [facility] HEMATOLOGY Plt Morph Normal (09/16/16 4:54 AM) 09/16/2016 [facility] HEMATOLOGY Polychrom Slight 09/16/2016 [facility] HEMATOLOGY Eosinophils 3.0 0.0 - 4.0 09/16/2016 [facility] HEMATOLOGY Atypical Lymphs 0.0 <=0.0 % 09/16/2016 [facility] HEMATOLOGY Basophils 1.0 0.0 - 1.0 09/16/2016 [facility] HEMATOLOGY INR 1.00 0.85 - 1.17 09/16/2016 [facility] HEMATOLOGY PTT 32.4 22.9 - 35.8 09/16/2016 [facility] HEMATOLOGY PT 13.4 12.0 - 14.7 09/16/2016 [facility] HEMATOLOGY RBC 3.74 4.70 - 6.10 09/16/2016 [facility] HEMATOLOGY MCV 88.7 80.0 - 94.0 09/16/2016 [facility] HEMATOLOGY MCH 29.4 27.0 - 31.0 09/16/2016 [facility] HEMATOLOGY WBC 5.0 3.7 - 10.4 09/16/2016 [facility] HEMATOLOGY MPV 11.2 7.4 - 10.4 09/16/2016 [facility] HEMATOLOGY Hct 33.2 42.0 - 54.0 09/16/2016 [facility] HEMATOLOGY Hgb 11.0 14.0 - 18.0 09/16/2016 [facility] HEMATOLOGY RDW 13.9 11.5 - 14.5 09/16/2016 [facility] HEMATOLOGY Platelet 75 133 - 450 09/16/2016 [facility] HEMATOLOGY MCHC 33.2 32.0 - 36.0 09/16/2016 [facility] CARDIAC ENZYMES CK MB 2.1 0.5 - 3.6 09/15/2016 [facility] CARDIAC ENZYMES Troponin-I 0.02 0.00 - 0.40 09/15/2016 [facility] CARDIAC ENZYMES Total CK 116 12 - 191 09/15/2016 [facility] CARDIAC ENZYMES CK MB Index 1.8 0.0 - 2.5 09/15/2016 [facility] CARDIAC ENZYMES CK MB Index 1.2 0.0 - 2.5 09/15/2016 [facility] CARDIAC ENZYMES CK MB 2.4 0.5 - 3.6 09/15/2016 [facility] CARDIAC ENZYMES Troponin-I 0.03 0.00 - 0.40 09/15/2016 [facility] CARDIAC ENZYMES Total CK 194 12 - 191 09/15/2016 [facility] CHEM PANEL eGFR 45 09/15/2016 Result [...] should be multiplied by the estimated BMI. [facility] CHEM PANEL Sodium Lvl 133 135 - 145 09/15/2016 [facility] CHEM PANEL Creatinine Lvl 1.70 0.50 - 1.40 09/15/2016 [facility] CHEM PANEL CO2 23 24 - 32 09/15/2016 [facility] CHEM PANEL Chloride Lvl 101 95 - 109 09/15/2016 [facility] CHEM PANEL AGAP 12.9 10.0 - 20.0 09/15/2016 [facility] CHEM PANEL Calcium Lvl 7.2 8.5 - 10.5 09/15/2016 [facility] CHEM PANEL BUN 33 7 - 22 09/15/2016 [facility] CHEM PANEL Glucose Lvl 297 70 - 99 09/15/2016 [facility] CHEM PANEL Potassium Lvl 3.9 3.5 - 5.1 09/15/2016 [facility] LIPIDS CHD Risk 4.25 4.00 - 7.30 09/15/2016 [facility] LIPIDS VLDL 43 09/15/2016 [facility] LIPIDS Chol 102 <=199 mg/dL 09/15/2016 [facility] LIPIDS Trig 213 <=149 mg/dL 09/15/2016 [facility] LIPIDS HDL 24 >=61 mg/dL 09/15/2016 [facility] LIPIDS LDL (Calculated) 35 <=99 mg/dL 09/15/2016 [facility] SPECIAL CHEMISTRY Hgb A1C 9.7 <=5.6 % 09/15/2016 [facility] CARDIAC ENZYMES Troponin-I 0.05 0.00 - 0.40 09/15/2016 [facility] CARDIAC ENZYMES Total CK 220 12 - 191 09/15/2016 [facility] CARDIAC ENZYMES CK MB 2.1 0.5 - 3.6 09/15/2016 [facility] CARDIAC ENZYMES CK MB Index 1.0 0.0 - 2.5 09/15/2016 [facility] CHEM PANEL Lactic Acid Lvl 1.9 0.5 - 2.2 09/15/2016 [facility] CHEM PANEL Lactic Acid Lvl 2.3 [...] Glucose Lvl 271 70 - 99 09/15/2016 [facility] CHEM PANEL BUN 36 7 - 22 09/15/2016 [facility] CHEM PANEL Sodium Lvl 132 135 - 145 09/15/2016 [facility] CHEM PANEL Creatinine Lvl 2.20 0.50 - 1.40 09/15/2016 [facility] CHEM PANEL Calcium Lvl 6.4 8.5 - 10.5 09/15/2016 Result Comment: Critical Result(s) called to davey chakraborty at 09/15/2016 04:00 by chito. Read back OK. [facility] CHEM PANEL Chloride Lvl 99 95 - 109 09/15/2016 [facility] CHEM PANEL AGAP 16.3 10.0 - 20.0 09/15/2016 [facility] CHEM PANEL CO2 21 24 - 32 09/15/2016 [facility] CHEM PANEL Potassium Lvl 4.3 3.5 - 5.1 09/15/2016 [facility] CHEM PANEL Lactic Acid Lvl 2.9 0.5 - 2.2 09/15/2016 [facility] CHEM PANEL Lipase Lvl 80 73 - 393 09/15/2016 [facility] CHEM PANEL Magnesium Lvl 1.7 1.8 - 2.4 09/15/2016 [facility] CHEM PANEL Ketone Quantitative 0.63 <=0.27 mmol/L 09/15/2016 [facility] CHEM PANEL Phosphorus 3.0 2.5 - 4.5 09/15/2016 [facility] CHEM PANEL Osmolality 304 280 - 300 09/15/2016 [facility] TOXICOLOGY Ethanol Lvl <3 09/15/2016 [facility] TOXICOLOGY Etoh (%) <0.003 09/15/2016 [facility] CHEM PANEL Alk Phos 98 39 - 136 09/15/2016 [facility] CHEM PANEL Bili Total 1.3 0.2 - 1.3 09/15/2016 [facility] CHEM PANEL AST 53 0 - 37 09/15/2016 [facility] CHEM PANEL ALT 33 0 - 65 09/15/2016 [facility] CHEM PANEL Albumin Lvl 2.7 3.5 - 5.0 09/15/2016 [facility] CHEM PANEL Total Protein 7.9 6.4 - 8.4 09/15/2016 [facility] CHEM PANEL Globulin 5.2 2.7 - 4.2 09/15/2016 [facility] CHEM PANEL B/C Ratio 14 6 - 25 09/15/2016 [facility] CHEM PANEL A/G Ratio 0.5 0.7 - 1.6 09/15/2016 [facility] HEMATOLOGY PTT 35.2 22.9 - 35.8 09/15/2016 [facility] HEMATOLOGY RDW 13.9 11.5 - 14.5 09/15/2016 [facility] HEMATOLOGY MPV 11.4 7.4 - 10.4 09/15/2016 [facility] HEMATOLOGY MCHC 34.6 32.0 - 36.0 09/15/2016 [facility] HEMATOLOGY Platelet 101 133 - 450 09/15/2016 [facility] HEMATOLOGY Hgb 14.5 14.0 - 18.0 09/15/2016 [facility] HEMATOLOGY MCV 88.2 80.0 - 94.0 09/15/2016 [facility] HEMATOLOGY MCH 30.5 27.0 - 31.0 09/15/2016 [facility] HEMATOLOGY Hct 41.8 42.0 - 54.0 09/15/2016 [facility] HEMATOLOGY WBC 8.7 3.7 - 10.4 09/15/2016 [facility] HEMATOLOGY RBC 4.75 4.70 - 6.10 09/15/2016 [facility] HEMATOLOGY Lymphocytes 5.7 20.0 - 40.0 09/15/2016 [facility] HEMATOLOGY Eosinophils 0.1 0.0 - 4.0 09/15/2016 [facility] HEMATOLOGY Monocytes 4.0 2.0 - 12.0 09/15/2016 [facility] HEMATOLOGY Basophils 0.4 0.0 - 1.0 09/15/2016 [facility] HEMATOLOGY Segs 89.8 45.0 - 75.0 09/15/2016 [facility] HEMATOLOGY Monocytes # 0.3 0.0 - 0.8 09/15/2016 [facility] HEMATOLOGY Lymphocytes # 0.5 1.0 - 5.5 09/15/2016 [facility] HEMATOLOGY Segs-Bands # 7.8 1.5 - 8.1 09/15/2016 [facility] ELECTROLYTES AGAP 6.9 10.0 - 20.0 06/22/2016 [facility] ELECTROLYTES eGFR 98 06/22/2016 Result Comment: [...] should be multiplied by the estimated BMI. [facility] ELECTROLYTES Calcium Lvl 8.7 8.5 - 10.5 06/22/2016 [facility] ELECTROLYTES Potassium Lvl 3.9 3.5 - 5.1 06/22/2016 [facility] ELECTROLYTES Chloride Lvl 99 95 - 109 06/22/2016 [facility] ELECTROLYTES BUN 11 7 - 22 06/22/2016 [facility] ELECTROLYTES Sodium Lvl 133 135 - 145 06/22/2016 [facility] ELECTROLYTES Creatinine Lvl 0.90 0.50 - 1.40 06/22/2016 [facility] ELECTROLYTES Glucose Lvl 163 70 - 99 06/22/2016 [facility] ELECTROLYTES CO2 31 24 - 32 06/22/2016 [facility] HEMATOLOGY MCH 31.1 27.0 - 31.0 06/22/2016 [facility] HEMATOLOGY MCV 90.4 80.0 - 94.0 06/22/2016 [facility] HEMATOLOGY Platelet 182 133 - 450 06/22/2016 [facility] HEMATOLOGY RDW 14.1 11.5 - 14.5 06/22/2016 [facility] HEMATOLOGY MPV 9.2 7.4 - 10.4 06/22/2016 [facility] HEMATOLOGY MCHC 34.4 32.0 - 36.0 06/22/2016 [facility] HEMATOLOGY Hct 38.0 42.0 - 54.0 06/22/2016 [facility] HEMATOLOGY WBC 4.9 3.7 - 10.4 06/22/2016 [facility] HEMATOLOGY Hgb 13.1 14.0 - 18.0 06/22/2016 [facility] HEMATOLOGY RBC 4.20 4.70 - 6.10 06/22/2016 [facility] HEMATOLOGY Eosinophils # 0.3 0.0 - 0.5 06/22/2016 [facility] HEMATOLOGY Basophils 0.7 0.0 - 1.0 06/22/2016 [facility] HEMATOLOGY Monocytes 9.7 2.0 - 12.0 06/22/2016 [facility] HEMATOLOGY Eosinophils 5.8 0.0 - 4.0 06/22/2016 [facility] HEMATOLOGY Monocytes # 0.5 0.0 - 0.8 06/22/2016 [facility] HEMATOLOGY Lymphocytes # 1.0 1.0 - 5.5 06/22/2016 [facility] HEMATOLOGY Segs-Bands # 3.1 1.5 - 8.1 06/22/2016 [facility] HEMATOLOGY Lymphocytes 20.6 20.0 - 40.0 06/22/2016 [facility] HEMATOLOGY Segs 63.2 45.0 - 75.0 06/22/2016 [facility] TOXICOLOGY Vanco Tr TND 23:30 06/22/2016 [facility] TOXICOLOGY Vanco Tr 16.1 06/22/2016 [facility] TOXICOLOGY Vanco Tr TND 0130 06/20/2016 [facility] TOXICOLOGY Vanco Tr 12.5 06/20/2016 [facility] TOXICOLOGY Vanco Tr 20.0 06/19/2016 [facility] TOXICOLOGY Vanco Tr TND 0130 06/19/2016 [facility] CHEM PANEL Creatinine Lvl 0.89 0.50 - 1.40 06/18/2016 [facility] CHEM PANEL Sodium Lvl 130 135 - 145 06/18/2016 [facility] CHEM PANEL BUN 11 7 - 22 06/18/2016 [facility] CHEM PANEL AGAP 10.5 10.0 - 20.0 06/18/2016 [facility] CHEM PANEL Calcium Lvl 8.1 8.5 - 10.5 06/18/2016 [facility] CHEM PANEL Glucose Lvl 262 70 - 99 06/18/2016 [facility] CHEM PANEL Potassium Lvl 3.5 3.5 - 5.1 06/18/2016 [facility] CHEM PANEL CO2 27 24 - 32 06/18/2016 [facility] CHEM PANEL Chloride Lvl 96 95 - 109 06/18/2016 [facility] CHEM PANEL eGFR 98 06/18/2016 Result [...] should be multiplied by the estimated BMI. [facility] MCH 31.3 27.0 - 31.0 06/18/2016 [facility] RBC 3.89 4.70 - 6.10 06/18/2016 [facility] Hgb 12.2 14.0 - 18.0 06/18/2016 [facility] Hct 35.2 42.0 - 54.0 06/18/2016 [facility] MCV 90.3 80.0 - 94.0 06/18/2016 [facility] MCHC 34.7 32.0 - 36.0 06/18/2016 [facility] MPV 10.4 7.4 - 10.4 06/18/2016 [facility] RDW 14.7 11.5 - 14.5 06/18/2016 [facility] Platelet 128 133 - 450 06/18/2016 [facility] WBC 5.6 3.7 - 10.4 06/18/2016 [facility] Monocytes # 0.7 0.0 - 0.8 06/18/2016 [facility] HEMATOLOGY Eosinophils # 0.1 0.0 - 0.5 06/18/2016 [facility] HEMATOLOGY Lymphocytes # 1.4 1.0 - 5.5 06/18/2016 [facility] HEMATOLOGY Segs 60.2 45.0 - 75.0 06/18/2016 [facility] HEMATOLOGY Monocytes 12.3 2.0 - 12.0 06/18/2016 [facility] HEMATOLOGY Lymphocytes 24.5 20.0 - 40.0 06/18/2016 [facility] HEMATOLOGY Eosinophils 2.3 0.0 - 4.0 06/18/2016 [facility] HEMATOLOGY Basophils 0.7 0.0 - 1.0 06/18/2016 [facility] HEMATOLOGY Segs-Bands # 3.4 1.5 - 8.1 06/18/2016 [facility] HEMATOLOGY Sed Rate 89 0 - 15 06/18/2016 [facility] IMMUNOLOGY C-REACTIVE PROTEIN 90.4 <=2.9 mg/L 06/18/2016 [facility] CHEM PANEL Lactic Acid Lvl 1.4 0.5 - 2.2 06/17/2016 [facility] CHEM PANEL Procalcitonin Lvl <0.05 ng/mL 0.00 - 0.10 06/17/2016 [facility] CHEM PANEL Lactic Acid Lvl 2.6 0.5 - 2.2 06/17/2016 [facility] CHEM PANEL eGFR 91 06/17/2016 Result [...] should be multiplied by the estimated BMI. [facility] CHEM PANEL Sodium Lvl 130 135 - 145 06/17/2016 [facility] CHEM PANEL CO2 27 24 - [...] HEMATOLOGY PT 14.5 12.0 - 14.7 06/17/2016 [facility] HEMATOLOGY PTT 32.3 22.9 - 35.8 06/17/2016 [facility] HEMATOLOGY MCHC 34.4 32.0 - 36.0 06/17/2016 [facility] MCH 31.1 27.0 - 31.0 06/17/2016 [facility] MPV 10.0 7.4 - 10.4 06/17/2016 [facility] Platelet 131 133 - 450 06/17/2016 [facility] HEMATOLOGY RDW 14.8 11.5 - 14.5 06/17/2016 [facility] HEMATOLOGY Hct 37.4 42.0 - 54.0 06/17/2016 [facility] WBC 5.0 3.7 - 10.4 06/17/2016 [facility] Hgb 12.9 14.0 - 18.0 06/17/2016 [facility] RBC 4.14 4.70 - 6.10 06/17/2016 [facility] MCV 90.4 80.0 - 94.0 06/17/2016 [facility] SPECIAL CHEMISTRY Hgb A1C 9.8 <=5.6 % 06/17/2016 [facility] ELECTROLYTES AGAP 10.4 10.0 - 20.0 02/25/2016 [facility] ELECTROLYTES eGFR 117 02/25/2016 Result Comment: [...] should be multiplied by the estimated BMI. [facility] ELECTROLYTES CO2 30 24 - 32 02/25/2016 [facility] ELECTROLYTES Calcium Lvl 8.0 8.5 - 10.5 02/25/2016 [facility] ELECTROLYTES Glucose Lvl 94 70 - 99 02/25/2016 [facility] ELECTROLYTES BUN 17 7 - 22 02/25/2016 [facility] ELECTROLYTES Potassium Lvl 3.4 3.5 - 5.1 02/25/2016 [facility] ELECTROLYTES Chloride Lvl 96 95 - 109 02/25/2016 [facility] ELECTROLYTES Creatinine Lvl 0.59 0.50 - 1.40 02/25/2016 [facility] ELECTROLYTES Sodium Lvl 133 135 - 145 02/25/2016 [facility] HEMATOLOGY Hct 32.0 42.0 - 54.0 02/25/2016 [facility] HEMATOLOGY MCV 83.6 80.0 - 94.0 02/25/2016 [facility] HEMATOLOGY MCH 28.1 27.0 - 31.0 02/25/2016 [facility] HEMATOLOGY MCHC 33.6 32.0 - 36.0 02/25/2016 [facility] HEMATOLOGY MPV 8.7 7.4 - 10.4 02/25/2016 [facility] HEMATOLOGY Hgb 10.8 14.0 - 18.0 02/25/2016 [facility] HEMATOLOGY Platelet 218 133 - 450 02/25/2016 [facility] HEMATOLOGY RDW 15.0 11.5 - 14.5 02/25/2016 [facility] HEMATOLOGY WBC 7.8 3.7 - 10.4 02/25/2016 [facility] HEMATOLOGY RBC 3.83 4.70 - 6.10 02/25/2016 [facility] HEMATOLOGY Segs-Bands # 5.6 1.5 - [...] 02/25/2016 [facility] TOXICOLOGY Vanco Tr 17.2 02/25/2016 [facility] TOXICOLOGY Vanco Tr TND 0 02/25/2016 [facility] BACTERIAL - SEROLOGY MRSA by PCR Negative (02/25/16 12:10 AM) 02/25/2016 [facility] TOXICOLOGY Vanco Tr 9.9 02/23/2016 [facility] TOXICOLOGY Vanco Tr TND 2200 02/23/2016 [facility] CHEM PANEL Bili Total 0.7 0.2 - 1.3 02/22/2016 [facility] CHEM PANEL ALT 11 0 - 65 02/22/2016 [facility] CHEM PANEL AST 12 0 - 37 02/22/2016 [facility] CHEM PANEL Albumin Lvl 2.0 3.5 - 5.0 02/22/2016 [facility] CHEM PANEL Globulin 5.8 2.0 - 4.0 02/22/2016 [facility] CHEM PANEL A/G Ratio 0.3 0.7 - 1.6 02/22/2016 [facility] CHEM PANEL eGFR 108 02/22/2016 Result [...] should be multiplied by the estimated BMI. [facility] CHEM PANEL Alk Phos 92 39 - 136 02/22/2016 [facility] CHEM PANEL Total Protein 7.8 6.4 - 8.4 02/22/2016 [facility] CHEM PANEL B/C Ratio 14 6 - 25 02/22/2016 [facility] CHEM PANEL Calcium Lvl 8.3 8.5 - 10.5 02/22/2016 [facility] CHEM PANEL CO2 29 24 - 32 02/22/2016 [facility] CHEM PANEL AGAP 9.6 10.0 - 20.0 02/22/2016 [facility] CHEM [facility] Creatinine Lvl 0.73 0.50 - 1.40 02/22/2016 [facility] CHEM PANEL Sodium Lvl 132 135 - 145 02/22/2016 [facility] CHEM PANEL Chloride Lvl 97 95 - 109 02/22/2016 [facility] CHEM PANEL Potassium Lvl 3.6 3.5 - 5.1 02/22/2016 [facility] CHEM PANEL BUN 10 7 - 22 02/22/2016 [facility] CHEM PANEL Glucose Lvl 256 70 - 99 02/22/2016 [facility] HEMATOLOGY Sed Rate >100 mm/hr 0 - 15 02/22/2016 [facility] HEMATOLOGY Eosinophils # 0.1 0.0 - 0.5 02/22/2016 [facility] HEMATOLOGY Monocytes # 0.5 0.0 - 0.8 02/22/2016 [facility] HEMATOLOGY Lymphocytes # 1.2 1.0 - 5.5 02/22/2016 [facility] HEMATOLOGY Segs-Bands # 3.4 1.5 - 8.1 02/22/2016 [facility] HEMATOLOGY Basophils 0.9 0.0 - 1.0 02/22/2016 [facility] HEMATOLOGY Eosinophils 2.5 0.0 - 4.0 02/22/2016 [facility] HEMATOLOGY Monocytes 9.8 2.0 - 12.0 02/22/2016 [facility] HEMATOLOGY Lymphocytes 22.1 20.0 - 40.0 02/22/2016 [facility] HEMATOLOGY Segs 64.7 45.0 - 75.0 02/22/2016 [facility] HEMATOLOGY Hct 30.3 42.0 - 54.0 02/22/2016 [facility] HEMATOLOGY MCV 84.1 80.0 - 94.0 02/22/2016 [facility] HEMATOLOGY MCH 27.9 27.0 - 31.0 02/22/2016 [facility] HEMATOLOGY Hgb 10.0 14.0 - 18.0 02/22/2016 [facility] HEMATOLOGY WBC 5.2 3.7 - 10.4 02/22/2016 [facility] HEMATOLOGY RBC 3.60 4.70 - 6.10 02/22/2016 [facility] HEMATOLOGY MPV 8.9 7.4 - 10.4 02/22/2016 [facility] HEMATOLOGY Platelet 178 133 - 450 02/22/2016 [facility] HEMATOLOGY MCHC 33.2 32.0 - 36.0 02/22/2016 [facility] HEMATOLOGY RDW 14.9 11.5 - 14.5 02/22/2016 [facility] IMMUNOLOGY C-REACTIVE PROTEIN 155.0 <=2.9 mg/L 02/22/2016 [facility] SPECIAL CHEMISTRY Hgb A1C 11.5 <=5.6 % 02/22/2016 [facility] URINE AND STOOL UA Leuk Est Negative (02/21/16 11:40 AM) Negative 02/21/2016 [facility] URINE AND STOOL UA Nitrite Negative (02/21/16 11:40 AM) Negative 02/21/2016 [facility] URINE AND STOOL UA Urobilinogen 0.2 0.1 - 1.0 02/21/2016 [facility] URINE AND STOOL UA Bili Negative *NA* (02/21/16 11:40 AM) Negative 02/21/2016 [facility] URINE AND STOOL UA Blood Large *ABN* (02/21/16 11:40 AM) Negative 02/21/2016 [facility] URINE AND STOOL UA Sq Epi Moderate /LPF Few /LPF 02/21/2016 [facility] URINE AND STOOL UA Ketones Trace *ABN* (02/21/16 11:40 AM) Negative 02/21/2016 [facility] URINE AND STOOL UA Glucose >=1000 mg/dL Negative mg/dL 02/21/2016 [facility] URINE AND STOOL UA Protein Trace *ABN* (02/21/16 11:40 AM) Negative 02/21/2016 [facility] URINE AND STOOL UA RBC 3-5 /HPF 0 - 2 02/21/2016 [facility] URINE AND STOOL UA Bacteria Occasional /HPF None Seen /HPF 02/21/2016 [facility] URINE AND STOOL UA WBC 3-5 /HPF 0 - 5 02/21/2016 [facility] URINE AND STOOL UA Turbidity Clear (02/21/16 11:40 AM) Clear 02/21/2016 [facility] URINE AND STOOL UA Spec Grav >=1.030 *ABN* (02/21/16 11:40 AM) <=1.030 02/21/2016 [facility] URINE AND STOOL UA pH 5.5 5.0 - 8.0 02/21/2016 [facility] URINE AND STOOL UA Color Yellow *NA* (02/21/16 11:40 AM) Yellow 02/21/2016 [facility] CHEM PANEL Lactic Acid Lvl 1.3 0.5 - 2.2 02/21/2016 [facility] ELECTROLYTES AGAP 10.8 10.0 - 20.0 02/21/2016 [facility] ELECTROLYTES eGFR 88 02/21/2016 Result Comment: [...] should be multiplied by the estimated BMI. [facility] ELECTROLYTES Chloride Lvl 93 95 - 109 02/21/2016 [facility] ELECTROLYTES CO2 27 24 - 32 02/21/2016 [facility] ELECTROLYTES Calcium Lvl 8.4 8.5 - 10.5 02/21/2016 [facility] ELECTROLYTES Potassium Lvl 3.8 3.5 - 5.1 02/21/2016 [facility] ELECTROLYTES Sodium Lvl 127 135 - 145 02/21/2016 [facility] ELECTROLYTES Creatinine Lvl 0.99 0.50 - 1.40 02/21/2016 [facility] ELECTROLYTES BUN 13 7 - 22 02/21/2016 [facility] ELECTROLYTES Glucose Lvl 373 70 - 99 02/21/2016 [facility] PT 15.6 12.0 - 14.7 02/21/2016 [facility] INR 1.21 0.85 - 1.17 02/21/2016 [facility] PTT 39.8 22.9 - 35.8 02/21/2016 [facility] RDW 14.8 11.5 - 14.5 02/21/2016 [facility] Platelet 180 133 - 450 02/21/2016 [facility] MCHC 33.0 32.0 - 36.0 02/21/2016 [facility] MCH 27.9 27.0 - 31.0 02/21/2016 [facility] Hct 29.3 42.0 - 54.0 02/21/2016 [facility] MCV 84.6 80.0 - 94.0 02/21/2016 [facility] MPV 9.7 7.4 - 10.4 02/21/2016 [facility] WBC 7.1 3.7 - 10.4 02/21/2016 [facility] HEMATOLOGY Hgb 9.7 14.0 - 18.0 02/21/2016 [facility] HEMATOLOGY RBC 3.46 4.70 - 6.10 02/21/2016 [facility] HEMATOLOGY Basophils 1.1 0.0 - 1.0 02/21/2016 [facility] HEMATOLOGY Monocytes 8.8 2.0 - 12.0 02/21/2016 [facility] HEMATOLOGY Eosinophils 1.2 0.0 - 4.0 02/21/2016 [facility] HEMATOLOGY Segs-Bands # 5.2 1.5 - 8.1 02/21/2016 [facility] HEMATOLOGY Lymphocytes 15.8 20.0 - 40.0 02/21/2016 [facility] HEMATOLOGY Segs 73.1 45.0 - 75.0 02/21/2016 [facility] HEMATOLOGY Monocytes # 0.6 0.0 - 0.8 02/21/2016 [facility] Lymphocytes # 1.1 1.0 - 5.5 02/21/2016 [facility] HEMATOLOGY Eosinophils # 0.1 0.0 - 0.5 02/21/2016 [facility] HEMATOLOGY Basophils # 0.1 0.0 - 0.2 02/21/2016 [facility] CHEM PANEL Lactic Acid Lvl 1.8 0.5 - 2.2 12/29/2015 [facility] CHEM PANEL eGFR 74 12/29/2015 Result [...] PANEL CO2 25 24 - 32 12/29/2015 [facility] CHEM PANEL Chloride Lvl 91 95 - 109 12/29/2015 [facility] CHEM PANEL Calcium Lvl 8.6 8.5 - 10.5 12/29/2015 [facility] CHEM PANEL Sodium Lvl 125 135 - 145 12/29/2015 [facility] CHEM PANEL Potassium Lvl 3.8 3.5 - 5.1 12/29/2015 [facility] CHEM PANEL AGAP 12.8 10.0 - 20.0 12/29/2015 [facility] CHEM PANEL BUN 14 7 - 22 12/29/2015 [facility] CHEM PANEL Glucose Lvl 452 70 - 99 12/29/2015 Result Comment: Critical Result(s) called to dirk at 12/28/2015 21:17 by sol_. Read back OK. [facility] CHEM PANEL Creatinine Lvl 1.14 0.50 - 1.40 12/29/2015 [facility] CHEM PANEL Lactic Acid Lvl 2.2 0.5 - 2.2 12/29/2015 [facility] CHEM PANEL Ketone Quantitative 0.11 <=0.27 mmol/L 12/29/2015 [facility] HEMATOLOGY Monocytes # 0.3 0.0 - 0.8 12/29/2015 [facility] HEMATOLOGY Segs-Bands # 10.1 1.5 - 8.1 12/29/2015 [facility] HEMATOLOGY Monocytes 3.0 2.0 - 12.0 12/29/2015 [facility] HEMATOLOGY RBC Morph Normal (12/28/15 8:39 PM) 12/29/2015 [facility] HEMATOLOGY Segs 77.0 45.0 - 75.0 12/29/2015 [facility] HEMATOLOGY Plt Morph Normal (12/28/15 8:39 PM) 12/29/2015 [facility] HEMATOLOGY Lymphocytes # 0.9 1.0 - 5.5 12/29/2015 [facility] HEMATOLOGY Lymphocytes 8.0 20.0 - 40.0 12/29/2015 [facility] HEMATOLOGY Bands 12.0 0.0 - 11.0 12/29/2015 [facility] HEMATOLOGY MPV 10.3 7.4 - 10.4 12/29/2015 [facility] HEMATOLOGY Platelet 125 133 - 450 12/29/2015 [facility] HEMATOLOGY RBC 4.08 4.70 - 6.10 12/29/2015 [facility] HEMATOLOGY WBC 11.4 3.7 - 10.4 12/29/2015 [facility] HEMATOLOGY Hgb 11.7 14.0 - 18.0 12/29/2015 [facility] HEMATOLOGY MCH 28.7 27.0 - 31.0 12/29/2015 [facility] HEMATOLOGY MCV 87.7 80.0 - 94.0 12/29/2015 [facility] HEMATOLOGY RDW 16.1 11.5 - 14.5 12/29/2015 [facility] HEMATOLOGY MCHC 32.8 32.0 - 36.0 12/29/2015 [facility] HEMATOLOGY Hct 35.7 42.0 - 54.0 12/29/2015 [facility] CHEM PANEL eGFR 99 05/03/2015 <sup>1</sup>Result [...] should be multiplied by the estimated BMI. [facility] CHEM PANEL Total Protein 8.0 6.4 - 8.4 05/03/2015 [facility] CHEM PANEL ALT 27 0 - 65 05/03/2015 [facility] CHEM PANEL Albumin Lvl 2.2 3.5 - 5.0 05/03/2015 [facility] CHEM PANEL CO2 25 24 - 32 05/03/2015 [facility] CHEM PANEL Calcium Lvl 8.6 8.5 - 10.5 05/03/2015 [facility] CHEM PANEL Creatinine Lvl 0.9 0.5 - 1.4 05/03/2015 [facility] CHEM PANEL BUN 13 7 - 22 05/03/2015 [facility] CHEM PANEL Glucose Lvl 139 70 - 99 05/03/2015 <sup>4</sup>Interpretive Data: Adult reference range values reflect the clinical guidelines
of the [place] [employer]. [facility] CHEM PANEL Bili Total 0.4 0.2 - 1.3 05/03/2015 [facility] CHEM PANEL Alk Phos 97 39 - 136 05/03/2015 [facility] CHEM PANEL AST 42 0 - 37 05/03/2015 [facility] CHEM PANEL Potassium Lvl 4.1 3.5 - 5.1 05/03/2015 [facility] CHEM PANEL Sodium Lvl 135 135 - 145 05/03/2015 [facility] CHEM PANEL Chloride Lvl 101 95 - 109 05/03/2015 [facility] CHEM PANEL A/G Ratio 0.4 0.7 - 1.6 05/03/2015 [facility] CHEM PANEL Globulin 5.8 2.0 - 4.0 05/03/2015 [facility] CHEM PANEL AGAP 13.1 10.0 - 20.0 05/03/2015 [facility] CHEM PANEL B/C Ratio 14 6 - 25 05/03/2015 [facility] HEMATOLOGY Lymphocytes # 1.3 1.0 - 5.5 05/03/2015 [facility] HEMATOLOGY Monocytes # 0.5 0.0 - 0.8 05/03/2015 [facility] HEMATOLOGY Eosinophils # 0.3 0.0 - 0.5 05/03/2015 [facility] HEMATOLOGY Basophils # 0.1 0.0 - 0.2 05/03/2015 [facility] HEMATOLOGY Segs 65.7 45.0 - 75.0 05/03/2015 [facility] HEMATOLOGY Eosinophils 4.0 0.0 - 4.0 05/03/2015 [facility] HEMATOLOGY Basophils 1.3 0.0 - 1.0 05/03/2015 [facility] HEMATOLOGY Segs-Bands # 4.1 1.5 - 8.1 05/03/2015 [facility] HEMATOLOGY Lymphocytes 20.5 20.0 - 40.0 05/03/2015 [facility] HEMATOLOGY Monocytes 8.5 2.0 - 12.0 05/03/2015 [facility] HEMATOLOGY MCV 94.6 80.0 - 94.0 05/03/2015 [facility] HEMATOLOGY MCH 33.1 27.0 - 31.0 05/03/2015 [facility] HEMATOLOGY MCHC 34.9 32.0 - 36.0 05/03/2015 [facility] HEMATOLOGY Hgb 12.5 14.0 - 18.0 05/03/2015 [facility] HEMATOLOGY Hct 35.9 42.0 - 54.0 05/03/2015 [facility] HEMATOLOGY Platelet 271 133 - 450 05/03/2015 [facility] HEMATOLOGY MPV 9.9 7.4 - 10.4 05/03/2015 [facility] HEMATOLOGY RDW 13.6 11.5 - 14.5 05/03/2015 [facility] HEMATOLOGY WBC 6.3 3.7 - 10.4 05/03/2015 [facility] HEMATOLOGY RBC 3.79 4.70 - 6.10 05/03/2015 [facility] ELECTROLYTES Potassium Lvl 3.9 3.5 - 5.1 05/02/2015 [facility] ELECTROLYTES Potassium Lvl 4.2 3.5 - 5.1 05/01/2015 [facility] IMMUNOLOGY Prealbumin 5.3 18.0 - 45.0 05/01/2015 [facility] ANEMIA STUDY % [place] 27 12 - 57 04/29/2015 [facility] ANEMIA STUDY TIBC 117 228 - 428 04/29/2015 [facility] ANEMIA STUDY Iron 32 45 - 160 04/29/2015 [facility] ANEMIA STUDY UIBC 85 110 - 370 04/29/2015 [facility] ANEMIA STUDY Ferritin Lvl 413 22 - 275 04/29/2015 [facility] ANEMIA STUDY Folate Lvl 4.0 >=3.0 ng/mL 04/29/2015 [facility] CHEM PANEL BUN 11 7 - 22 04/29/2015 [facility] CHEM PANEL eGFR 117 04/29/2015 <sup>2</sup>Result [...] should be multiplied by the estimated BMI. [facility] CHEM PANEL Calcium Lvl 5.8 8.5 - 10.5 04/29/2015 <sup>7</sup>Result Comment: Critical Result(s) called to Jose Pérez at 04/29/2015 04:59 by allie. Read back OK. [facility] CHEM PANEL AGAP 10.8 10.0 - 20.0 04/29/2015 [facility] CHEM PANEL Creatinine Lvl 0.6 0.5 - 1.4 04/29/2015 [facility] CHEM PANEL Glucose Lvl 84 70 - 99 04/29/2015 <sup>5</sup>Interpretive Data: Adult reference range values reflect the clinical guidelines
of the [place] [employer]. [facility] CHEM PANEL Sodium Lvl 143 135 - 145 04/29/2015 [facility] CHEM PANEL Chloride Lvl 115 95 - 109 04/29/2015 [facility] CHEM PANEL CO2 20 24 - 32 04/29/2015 [facility] HEMATOLOGY Hct 27.4 42.0 - 54.0 04/29/2015 [facility] HEMATOLOGY Hgb 9.6 14.0 - 18.0 04/29/2015 [facility] HEMATOLOGY WBC 5.7 3.7 - 10.4 04/29/2015 [facility] HEMATOLOGY MCH 33.3 27.0 - 31.0 04/29/2015 [facility] HEMATOLOGY RBC 2.89 4.70 - 6.10 04/29/2015 [facility] HEMATOLOGY MPV 10.7 7.4 - 10.4 04/29/2015 [facility] HEMATOLOGY MCV 94.9 80.0 - 94.0 04/29/2015 [facility] HEMATOLOGY RDW 13.2 11.5 - 14.5 04/29/2015 [facility] HEMATOLOGY Platelet 123 133 - 450 04/29/2015 [facility] MCHC 35.1 32.0 - 36.0 04/29/2015 [facility] HEMATOLOGY Eosinophils # 0.2 0.0 - 0.5 04/29/2015 [facility] HEMATOLOGY Segs 72.4 45.0 - 75.0 04/29/2015 [facility] HEMATOLOGY Monocytes 8.7 2.0 - 12.0 04/29/2015 [facility] HEMATOLOGY Lymphocytes 14.9 20.0 - 40.0 04/29/2015 [facility] HEMATOLOGY Lymphocytes # 0.8 1.0 - 5.5 04/29/2015 [facility] HEMATOLOGY Basophils 0.7 0.0 - 1.0 04/29/2015 [facility] HEMATOLOGY Eosinophils 3.3 0.0 - 4.0 04/29/2015 [facility] HEMATOLOGY Segs-Bands # 4.1 1.5 - 8.1 04/29/2015 [facility] HEMATOLOGY Monocytes # 0.5 0.0 - 0.8 04/29/2015 [facility] ANEMIA STUDY Vitamin B12 Lvl 637 254 - 1320 04/28/2015 [facility] ELECTROLYTES AGAP 11.6 10.0 - 20.0 04/28/2015 [facility] ELECTROLYTES Chloride Lvl 99 95 - 109 04/28/2015 [facility] ELECTROLYTES Sodium Lvl 134 135 - 145 04/28/2015 [facility] ELECTROLYTES Calcium Lvl 7.8 8.5 - 10.5 04/28/2015 [facility] ELECTROLYTES CO2 27 24 - 32 04/28/2015 [facility] ELECTROLYTES Creatinine Lvl 1.0 0.5 - 1.4 04/28/2015 [facility] ELECTROLYTES Glucose Lvl 145 70 - 99 04/28/2015 <sup>6</sup>Interpretive Data: Adult reference range values reflect the clinical guidelines
of the [place] [employer]. [facility] ELECTROLYTES BUN 18 7 - 22 04/28/2015 [facility] ELECTROLYTES eGFR 87 04/28/2015 <sup>3</sup>Result Comment: [...] should be multiplied by the estimated BMI. [facility] HEMATOLOGY Platelet 132 133 - 450 04/28/2015 [facility] HEMATOLOGY MPV 10.5 7.4 - 10.4 04/28/2015 [facility] RDW 13.1 11.5 - 14.5 04/28/2015 [facility] MCHC 35.4 32.0 - 36.0 04/28/2015 [facility] HEMATOLOGY MCV 94.1 80.0 - 94.0 04/28/2015 [facility] MCH 33.3 27.0 - 31.0 04/28/2015 [facility] Hct 31.5 42.0 - 54.0 04/28/2015 [facility] Hgb 11.1 14.0 - 18.0 04/28/2015 [facility] HEMATOLOGY RBC 3.35 4.70 - 6.10 04/28/2015 [facility] HEMATOLOGY WBC 7.8 3.7 - 10.4 04/28/2015 [facility] HEMATOLOGY Eosinophils # 0.1 0.0 - 0.5 04/28/2015 [facility] HEMATOLOGY Segs-Bands # 6.0 1.5 - 8.1 04/28/2015 [facility] HEMATOLOGY Monocytes 8.1 2.0 - 12.0 04/28/2015 [facility] HEMATOLOGY Monocytes # 0.6 0.0 - 0.8 04/28/2015 [facility] HEMATOLOGY Lymphocytes # 1.1 1.0 - 5.5 04/28/2015 [facility] HEMATOLOGY Basophils 0.5 0.0 - 1.0 04/28/2015 [facility] HEMATOLOGY Eosinophils 1.5 0.0 - 4.0 04/28/2015 [facility] HEMATOLOGY Lymphocytes 13.5 20.0 - 40.0 04/28/2015 [facility] HEMATOLOGY Segs 76.4 45.0 - 75.0 04/28/2015 [facility] TOXICOLOGY Vanco Tr TND 0500 04/28/2015 [facility] TOXICOLOGY Vanco Tr 10.4 04/28/2015 <sup>9</sup>Interpretive Data: Therapeutic Range:
Trough: 10 - 20 ug/mL
Peak: 20 - 40 ug/mL
Potential Toxicity: >80 ug/mL [facility] CHEM PANEL Procalcitonin Lvl 2.37 0.00 - 0.10 04/27/2015 <sup>8</sup>Result Comment: Critical Result(s) called to Jordin Pruitt at 04/27/2015 05:45 by SHE. Read back OK. [facility] HEMATOLOGY Sed Rate >100 mm/hr 0 - 15 04/27/2015 [facility] HEMATOLOGY Basophils # 0.1 0.0 - 0.2 04/27/2015 [facility] IMMUNOLOGY C-REACTIVE PROTEIN 175.0 <=2.9 mg/L 04/27/2015 [facility] CHEM PANEL Lactic Acid Lvl 2.0 0.5 - 2.2 04/26/2015 [facility] CHEM PANEL Alk Phos 82 39 - 136 04/26/2015 [facility] CHEM PANEL Bili Total 1.5 0.2 - 1.3 04/26/2015 [facility] CHEM PANEL B/C Ratio 13 6 - 25 04/26/2015 [facility] CHEM PANEL AST 19 0 - 37 04/26/2015 [facility] CHEM PANEL A/G Ratio 0.6 0.7 - 1.6 04/26/2015 [facility] CHEM PANEL Albumin Lvl 2.7 3.5 - 5.0 04/26/2015 [facility] CHEM PANEL ALT 25 0 - 65 04/26/2015 [facility] CHEM PANEL Globulin 4.8 2.0 - 4.0 04/26/2015 [facility] CHEM PANEL Total Protein 7.5 6.4 - 8.4 04/26/2015 [facility] HEMATOLOGY Basophils # 0.1 0.0 - 0.2 04/26/2015 [facility] SPECIAL CHEMISTRY Hgb A1C 9.2 <=5.6 % 04/26/2015 [facility] CHEM PANEL A/G Ratio 0.5 0.7 - 1.6 05/08/2014 [facility] CHEM PANEL Globulin 4.5 2.0 - 4.0 05/08/2014 [facility] CHEM PANEL B/C Ratio 11 6 - 25 05/08/2014 [facility] CHEM PANEL AGAP 11.1 10.0 - 20.0 05/08/2014 [facility] CHEM PANEL eGFR 105 05/08/2014 <sup>1</sup>Result [...] should be multiplied by the estimated BMI. [facility] CHEM PANEL Alk Phos 89 39 - 136 05/08/2014 [facility] CHEM PANEL ALT 19 0 - 65 05/08/2014 [facility] CHEM PANEL AST 20 0 - 37 05/08/2014 [facility] CHEM PANEL Bili Total 0.4 0.2 - 1.3 05/08/2014 [facility] CHEM PANEL CO2 26 24 - 32 05/08/2014 [facility] CHEM PANEL Albumin Lvl 2.4 3.5 - 5.0 05/08/2014 [facility] CHEM PANEL Total Protein 6.9 6.4 - 8.4 05/08/2014 [facility] CHEM PANEL Calcium Lvl 8.1 8.5 - 10.5 05/08/2014 [facility] CHEM PANEL Chloride Lvl 104 95 - 109 05/08/2014 [facility] CHEM PANEL Potassium Lvl 4.1 3.5 - 5.1 05/08/2014 [facility] CHEM PANEL Creatinine Lvl 0.8 0.5 - 1.4 05/08/2014 [facility] CHEM PANEL Sodium Lvl 137 135 - 145 05/08/2014 [facility] CHEM PANEL BUN 9 7 - 22 05/08/2014 [facility] CHEM PANEL Glucose Lvl 95 70 - 99 05/08/2014 <sup>3</sup>Interpretive Data: Adult reference range values reflect the clinical guidelines
of the [place] [employer]. [facility] HEMATOLOGY Monocytes 7.9 2.0 - 12.0 05/08/2014 [facility] HEMATOLOGY Lymphocytes # 1.4 1.0 - 5.5 05/08/2014 [facility] HEMATOLOGY Segs-Bands # 5.1 1.5 - 8.1 05/08/2014 [facility] HEMATOLOGY Basophils 1.1 0.0 - 1.0 05/08/2014 [facility] HEMATOLOGY Eosinophils 2.6 0.0 - 4.0 05/08/2014 [facility] HEMATOLOGY Eosinophils # 0.2 0.0 - 0.5 05/08/2014 [facility] HEMATOLOGY Monocytes # 0.6 0.0 - 0.8 05/08/2014 [facility] HEMATOLOGY Basophils # 0.1 0.0 - 0.2 05/08/2014 [facility] HEMATOLOGY Lymphocytes 19.1 20.0 - 40.0 05/08/2014 [facility] HEMATOLOGY Segs 69.3 45.0 - 75.0 05/08/2014 [facility] HEMATOLOGY MPV 9.6 7.4 - 10.4 05/08/2014 [facility] HEMATOLOGY Platelet 166 133 - 450 05/08/2014 [facility] HEMATOLOGY RDW 13.6 11.5 - 14.5 05/08/2014 [facility] HEMATOLOGY Hgb 9.7 14.0 - 18.0 05/08/2014 [facility] HEMATOLOGY Hct 27.8 42.0 - 54.0 05/08/2014 [facility] HEMATOLOGY MCV 87.8 80.0 - 94.0 05/08/2014 [facility] HEMATOLOGY MCH 30.6 27.0 - 31.0 05/08/2014 [facility] HEMATOLOGY MCHC 34.8 32.0 - 36.0 05/08/2014 [facility] HEMATOLOGY WBC X 10x3 7.4 3.7 - 10.4 05/08/2014 [facility] HEMATOLOGY RBC X 10x6 3.16 4.70 - 6.10 05/08/2014 [facility] TOXICOLOGY Vanco Lvl 9.0 05/05/2014 <sup>5</sup>Interpretive Data: Therapeutic Range:
Trough: 10 - 20 ug/mL
Peak: 20 - 40 ug/mL
Potential Toxicity: >80 ug/mL [facility] CHEM PANEL Lactic Acid Lvl 1.6 0.5 - 2.2 05/04/2014 [facility] CHEM PANEL eGFR 111 05/04/2014 <sup>2</sup>Result [...] should be multiplied by the estimated BMI. [facility] CHEM PANEL BUN 9 7 - 22 05/04/2014 [facility] CHEM PANEL Glucose Lvl 156 70 - 99 05/04/2014 <sup>4</sup>Interpretive Data: Adult reference range values reflect the clinical guidelines
of the [place] [employer]. [facility] CHEM PANEL Albumin Lvl 3.0 3.5 - 5.0 05/04/2014 [facility] CHEM PANEL ALT 33 0 - [...] B/C Ratio 13 6 - 25 05/04/2014 [facility] CHEM PANEL Globulin 6.1 2.0 - 4.0 05/04/2014 [facility] CHEM PANEL AGAP 13.1 10.0 - 20.0 05/04/2014 [facility] HEMATOLOGY Eosinophils # 0.3 0.0 - 0.5 05/04/2014 [facility] HEMATOLOGY Lymphocytes # 1.6 1.0 - 5.5 05/04/2014 [facility] HEMATOLOGY Monocytes # 0.4 0.0 - 0.8 05/04/2014 [facility] HEMATOLOGY Segs-Bands # 3.9 1.5 - 8.1 05/04/2014 [facility] HEMATOLOGY Basophils 0.7 0.0 - 1.0 05/04/2014 [facility] HEMATOLOGY Eosinophils 4.1 0.0 - 4.0 05/04/2014 [facility] HEMATOLOGY Monocytes 5.8 2.0 - 12.0 05/04/2014 [facility] HEMATOLOGY Lymphocytes 26.2 20.0 - 40.0 05/04/2014 [facility] HEMATOLOGY Segs 63.2 45.0 - 75.0 05/04/2014 [facility] HEMATOLOGY Hct 34.4 42.0 - 54.0 05/04/2014 [facility] HEMATOLOGY Hgb 11.8 14.0 - 18.0 05/04/2014 [facility] HEMATOLOGY RBC X 10x6 3.90 4.70 - 6.10 05/04/2014 [facility] HEMATOLOGY MPV 9.7 7.4 - 10.4 05/04/2014 [facility] MCHC 34.2 32.0 - 36.0 05/04/2014 [facility] MCH 30.1 27.0 - 31.0 05/04/2014 [facility] MCV 88.1 80.0 - 94.0 05/04/2014 [facility] WBC X 10x3 6.2 3.7 - 10.4 05/04/2014 [facility] Platelet 249 133 - 450 05/04/2014 [facility] HEMATOLOGY RDW 13.3 11.5 - 14.5 05/04/2014 [facility] HEMATOLOGY Sed Rate >100 mm/hr 0 - 15 05/04/2014 [facility] IMMUNOLOGY C-REACTIVE PROTEIN 23.8 <=2.9 mg/L 05/04/2014 [facility] BEDSIDE GLUCOSE TESTING Gluc POC Lifscn 302 70 - 99 02/07/2013 [place] <sup>1</sup>Interpretive Data: Upper Reportable Limit: 200 mg/dL. [facility] BEDSIDE GLUCOSE TESTING Comment1 Notify RN/ 02/07/2013 NA [facility] BEDSIDE GLUCOSE TESTING Comment1 Notify RN/ 02/07/2013 NA [facility] BEDSIDE GLUCOSE TESTING Gluc POC Lifscn 185 70 - 99 02/07/2013 [place] <sup>2</sup>Interpretive Data: Upper Reportable Limit: 200 mg/dL. [facility] BEDSIDE GLUCOSE TESTING Comment1 Notify RN/ 02/07/2013 NA [facility] BEDSIDE GLUCOSE TESTING Gluc POC Lifscn 201 70 - 99 02/07/2013 [place] <sup>3</sup>Interpretive Data: Upper Reportable Limit: 200 mg/dL. [facility] CHEMISTRY AGAP 11.8 10.0 - 20.0 02/06/2013 Normal [facility] CHEMISTRY eGFR 89 02/06/2013 NA <sup>4</sup>Result [...] should be multiplied by the estimated BMI. [facility] CHEMISTRY Glucose Lvl 146 70 - 99 02/06/2013 [place] <sup>7</sup>Interpretive Data: Adult reference range values reflect the clinical guidelines
of the [place] [employer]. [facility] CHEMISTRY Potassium Lvl 3.8 3.5 - 5.1 02/06/2013 Normal [facility] CHEMISTRY BUN 15 7 - 22 02/06/2013 Normal [facility] CHEMISTRY Creatinine Lvl 1.0 0.5 - 1.4 02/06/2013 Normal [facility] CHEMISTRY Sodium Lvl 138 135 - 145 02/06/2013 Normal [facility] CHEMISTRY Chloride Lvl 101 95 - 109 02/06/2013 Normal [facility] CHEMISTRY CO2 29 24 - 32 02/06/2013 Normal [facility] CHEMISTRY Calcium Lvl 8.5 8.5 - 10.5 02/06/2013 Normal [facility] HEMATOLOGY Lymphocytes # 1.3 1.0 - 5.5 02/06/2013 Normal [facility] HEMATOLOGY Basophils 0.8 0.0 - 1.0 02/06/2013 Normal [facility] HEMATOLOGY Segs-Bands # 3.9 1.5 - 8.1 02/06/2013 Normal [facility] HEMATOLOGY Eosinophils 4.1 0.0 - 4.0 02/06/2013 HI [facility] HEMATOLOGY Monocytes 10.3 2.0 - 12.0 02/06/2013 Normal [facility] HEMATOLOGY Lymphocytes 21.4 20.0 - 40.0 02/06/2013 Normal [facility] HEMATOLOGY Segs 63.4 45.0 - 75.0 02/06/2013 Normal [facility] HEMATOLOGY Basophils # 0.0 0.0 - 0.2 02/06/2013 Normal [facility] HEMATOLOGY Eosinophils # 0.2 0.0 - 0.5 02/06/2013 Normal [facility] HEMATOLOGY Monocytes # 0.6 0.0 - 0.8 02/06/2013 Normal [facility] HEMATOLOGY MPV 9.2 7.4 - 10.4 02/06/2013 Normal [facility] HEMATOLOGY Platelet 188 133 - 450 02/06/2013 Normal [facility] HEMATOLOGY WBC 6.1 3.7 - 10.4 02/06/2013 Normal [facility] HEMATOLOGY MCV 93.3 80.0 - 94.0 02/06/2013 Normal [facility] HEMATOLOGY Hct 33.8 42.0 - 54.0 02/06/2013 LOW [facility] HEMATOLOGY RBC 3.62 4.70 - 6.10 02/06/2013 LOW [facility] HEMATOLOGY Hgb 11.3 14.0 - 18.0 02/06/2013 LOW [facility] HEMATOLOGY RDW 13.4 11.5 - 14.5 02/06/2013 Normal [facility] HEMATOLOGY MCHC 33.4 32.0 - 36.0 02/06/2013 Normal [facility] HEMATOLOGY MCH 31.2 27.0 - 31.0 02/06/2013 HI [facility] Microbiology Culture: Anaerobic 02/05/2013 [facility] Microbiology Culture: Wound/Abscess w/Gram Stain 02/05/2013 [facility] CHEMISTRY Vanco Tr TND midnight 02/04/2013 NA [facility] CHEMISTRY Vanco Tr 10.7 02/04/2013 NA <sup>11</sup>Interpretive Data: Therapeutic Range:
Trough: 10 - 20 ug/mL
Peak: 20 - 40 ug/mL
Potential Toxicity: >80 ug/mL [facility] BEDSIDE GLUCOSE TESTING Comment2 Notify RN/ 02/02/2013 NA [facility] Magnesium Lvl 1.9 1.8 - 2.4 02/02/2013 Normal [facility] CHEMISTRY AGAP 10.0 10.0 - 20.0 02/02/2013 Normal [facility] CHEMISTRY Chloride Lvl 100 95 - 109 02/02/2013 Normal [facility] CHEMISTRY Sodium Lvl 135 135 - 145 02/02/2013 Normal [facility] CHEMISTRY Potassium Lvl 4.0 3.5 - 5.1 02/02/2013 Normal [facility] CHEMISTRY eGFR 101 02/02/2013 NA <sup>5</sup>Result [...] should be multiplied by the estimated BMI. [facility] CHEMISTRY Glucose Lvl 265 70 - 99 02/02/2013 [place] <sup>8</sup>Interpretive Data: Adult reference range values reflect the clinical guidelines
of the [place] [employer]. [facility] CHEMISTRY BUN 15 7 - 22 02/02/2013 Normal [facility] CHEMISTRY Creatinine Lvl 0.9 0.5 - 1.4 02/02/2013 Normal [facility] CHEMISTRY Calcium Lvl 8.0 8.5 - 10.5 02/02/2013 LOW [facility] CHEMISTRY CO2 29 24 - 32 02/02/2013 Normal [facility] HEMATOLOGY Platelet 143 133 - 450 02/02/2013 Normal [facility] HEMATOLOGY MCHC 33.7 32.0 - 36.0 02/02/2013 Normal [facility] HEMATOLOGY RDW 13.4 11.5 - 14.5 02/02/2013 Normal [facility] HEMATOLOGY MCH 31.5 27.0 - 31.0 02/02/2013 [facility] HEMATOLOGY Hct 33.0 42.0 - 54.0 02/02/2013 [facility] HEMATOLOGY MCV 93.5 80.0 - 94.0 02/02/2013 Normal [facility] HEMATOLOGY Hgb 11.1 14.0 - 18.0 02/02/2013 [facility] HEMATOLOGY RBC 3.53 4.70 - 6.10 02/02/2013 [facility] HEMATOLOGY WBC 6.6 3.7 - 10.4 02/02/2013 Normal [facility] HEMATOLOGY MPV 10.6 7.4 - 10.4 02/02/2013 [facility] HEMATOLOGY Basophils # 0.0 0.0 - 0.2 02/02/2013 Normal [facility] HEMATOLOGY Eosinophils # 0.2 0.0 - 0.5 02/02/2013 Normal [facility] HEMATOLOGY Monocytes # 0.7 0.0 - 0.8 02/02/2013 Normal [facility] HEMATOLOGY Lymphocytes # 1.2 1.0 - 5.5 02/02/2013 Normal [facility] HEMATOLOGY Segs-Bands # 4.4 1.5 - 8.1 02/02/2013 Normal [facility] HEMATOLOGY Basophils 0.7 0.0 - 1.0 02/02/2013 Normal [facility] HEMATOLOGY Eosinophils 2.6 0.0 - 4.0 02/02/2013 Normal [facility] HEMATOLOGY Monocytes 11.3 2.0 - 12.0 02/02/2013 Normal [facility] HEMATOLOGY Lymphocytes 17.9 20.0 - 40.0 02/02/2013 LOW [facility] HEMATOLOGY Segs 67.5 45.0 - 75.0 02/02/2013 Normal [facility] CHEMISTRY Phosphorus 3.4 2.5 - 4.5 02/01/2013 Normal [facility] CHEMISTRY LDL 61 0 - 129 02/01/2013 Normal [facility] CHEMISTRY CHD Risk 3.89 4.00 - 7.30 02/01/2013 LOW [facility] CHEMISTRY Trig 100 0 - 200 02/01/2013 Normal [facility] CHEMISTRY Chol 109 120 - 200 02/01/2013 LOW [facility] CHEMISTRY HDL 28 >=35 02/01/2013 LOW [facility] CHEMISTRY Hgb A1C 10.9 02/01/2013 NA [...] 240 Poor Control, take action to lower [facility] CHEMISTRY Magnesium Lvl 1.6 1.8 - 2.4 02/01/2013 LOW [facility] HEMATOLOGY Sed Rate >100 0 - 15 02/01/2013 [facility] Microbiology Culture: Blood 02/01/2013 [facility] Microbiology Culture: Blood 02/01/2013 [facility] CHEMISTRY Lactic Acid Lvl 2.7 0.5 - 2.2 02/01/2013 [facility] Microbiology Culture: Wound/Abscess w/Gram Stain 02/01/2013 [facility] URINALYSIS UA Turbidity Clear (01/31/2013 21:20:00) [...] UA Urobilinogen 4.0 0.1 - 1.0 02/01/2013 [facility] URINALYSIS UA Blood Large *ABN* [...] pH 6.0 5.0 - 8.0 02/01/2013 Normal [facility] URINALYSIS UA Spec Grav 1.027 <=1.030 02/01/2013 Normal [facility] URINALYSIS UA RBC 138 0 - 2 02/01/2013 [facility] URINALYSIS UA Bacteria Few /HPF *NA* (01/31/2013 21:20:00) None Seen 02/01/2013 [facility] URINALYSIS UA WBC 46 0 - 5 02/01/2013 [facility] CHEMISTRY AGAP 13.9 10.0 - 20.0 02/01/2013 Normal [facility] CHEMISTRY B/C Ratio 15 6 - 25 02/01/2013 Normal [facility] CHEMISTRY Globulin 5.5 2.0 - 4.0 02/01/2013 [facility] CHEMISTRY A/G Ratio 0.5 0.7 - 1.6 02/01/2013 LOW [facility] CHEMISTRY eGFR 79 02/01/2013 NA <sup>6</sup>Result [...] should be multiplied by the estimated BMI. [facility] CHEMISTRY BUN 16 7 - 22 02/01/2013 Normal [facility] CHEMISTRY Glucose Lvl 366 70 - 99 02/01/2013 [place] <sup>9</sup>Interpretive Data: Adult reference range values reflect the clinical guidelines
of the [place] [employer]. [facility] CHEMISTRY Potassium Lvl 3.9 3.5 - 5.1 02/01/2013 Normal [facility] CHEMISTRY Chloride Lvl 93 95 - 109 02/01/2013 LOW [facility] CHEMISTRY Creatinine Lvl 1.1 0.5 - 1.4 02/01/2013 Normal [facility] CHEMISTRY Sodium Lvl 130 135 - 145 02/01/2013 LOW [facility] CHEMISTRY CO2 27 24 - 32 02/01/2013 Normal [facility] CHEMISTRY Calcium Lvl 8.8 8.5 - 10.5 02/01/2013 Normal [facility] CHEMISTRY Albumin Lvl 2.9 3.5 - 5.0 02/01/2013 LOW [facility] CHEMISTRY AST 24 0 - 37 02/01/2013 Normal [facility] CHEMISTRY Bili Total 1.0 0.2 - 1.3 02/01/2013 Normal [facility] CHEMISTRY Total Protein 8.4 6.4 - 8.4 02/01/2013 Normal [facility] CHEMISTRY ALT 25 0 - 65 02/01/2013 Normal [facility] CHEMISTRY Alk Phos 114 39 - 136 02/01/2013 Normal [facility] HEMATOLOGY Lymphocytes 9.1 20.0 - 40.0 02/01/2013 LOW [facility] HEMATOLOGY Monocytes 7.6 2.0 - 12.0 02/01/2013 Normal [facility] HEMATOLOGY Segs 82.9 45.0 - 75.0 02/01/2013 [facility] HEMATOLOGY Segs-Bands # 9.5 1.5 - 8.1 02/01/2013 [facility] HEMATOLOGY Basophils 0.2 0.0 - 1.0 02/01/2013 Normal [facility] HEMATOLOGY Eosinophils 0.2 0.0 - 4.0 02/01/2013 Normal [facility] HEMATOLOGY Eosinophils # 0.0 0.0 - 0.5 02/01/2013 Normal [facility] HEMATOLOGY Basophils # 0.0 0.0 - 0.2 02/01/2013 Normal [facility] HEMATOLOGY Lymphocytes # 1.0 1.0 - 5.5 02/01/2013 Normal [facility] HEMATOLOGY Monocytes # 0.9 0.0 - 0.8 02/01/2013 [facility] HEMATOLOGY Platelet 169 133 - 450 02/01/2013 Normal [facility] HEMATOLOGY WBC 11.4 3.7 - 10.4 02/01/2013 [facility] HEMATOLOGY MPV 12.2 7.4 - 10.4 02/01/2013 [facility] HEMATOLOGY RDW 13.3 11.5 - 14.5 02/01/2013 Normal [facility] HEMATOLOGY MCV 92.6 80.0 - 94.0 02/01/2013 Normal [facility] HEMATOLOGY Hct 39.3 42.0 - 54.0 02/01/2013 LOW [facility] HEMATOLOGY RBC 4.24 4.70 - 6.10 02/01/2013 LOW [facility] HEMATOLOGY MCH 31.5 27.0 - 31.0 02/01/2013 [facility] HEMATOLOGY MCHC 34.0 32.0 - 36.0 02/01/2013 Normal [facility] HEMATOLOGY Hgb 13.4 14.0 - 18.0 02/01/2013 LOW [facility] CHEMISTRY Glucose Lvl 261 10/26/2011 NA <sup>2</sup>Interpretive Data: Reference Ranges : 0 - 7 days : 41 - 90 mg/dL 7 days - 150 yrs : 70 - 99 mg/dL (fasting), based on the clinical recommendations of the [place] [employer]. [facility] CHEMISTRY CO2 27 24 - 32 10/26/2011 Normal [facility] CHEMISTRY Calcium Lvl 8.4 8.5 - [...] Platelet 101 133 - 450 10/26/2011 LOW [facility] HEMATOLOGY RDW 13.2 11.5 - 14.5 10/26/2011 Normal [facility] HEMATOLOGY MCH 33.8 27.0 - 31.0 10/26/2011 [facility] HEMATOLOGY MCV 94.8 80.0 - 94.0 10/26/2011 [facility] BEDSIDE GLUCOSE TESTING Gluc POC Lifscn 285 65 - 110 10/26/2011 [place] <sup>1</sup>Interpretive Data: Upper Reportable Limit: 200 mg/dL. [facility] Microbiology Culture: Wound/Abscess w/Gram Stain 10/26/2011 [facility] Pathology Reports No Data Provided for [...] base is unchanged. Osseous structures unremarkable. SL: [id number] 01/29/2017 [facility] Foot 2 views DX Left foot 2 views: There has been interval resection of the distal 2nd metatarsal since the radiographs on 01/20/2017. The other osseous structures remain intact. There is no evidence of acute fractures or osteomyelitis. There is no other significant change. JESSIKA DLAWRENCE-PC 01/25/2017 [facility] Chest 1view DX Patient Name: DALLAS VALENCIA : 1965; Age: 51 years Male MR: [id number] Study: Chest 1view DX Order Time: 01/24/2017 3:00 AM CDT Clinical Indication: Abnormal chest sounds COMPARISON: 01/20/2017 FINDINGS: Frontal view of the chest has been submitted for evaluation. The cardiomediastinal silhouette is stable in size. There is no pneumonia, effusion, or pneumothorax. Stable osseous structures. IMPRESSION: No focal lung disease. SL: [id number] 01/24/2017 [facility] Foot wo contrast MRI EXAM: MRI [...] corresponding T1 signal abnormality. SL: LOS 01/23/2017 [facility] Ext Lower Arterial bilat w pressure US Please refer to the heart lab report, located under vascular in [facility]. 01/22/2017 [facility] Foot 2 views DX Patient Name: DALLAS VALENCIA : 1965; Age: 51 years y/o Male MR: [id number] Study: Foot 2 views DX 01/20/2017 9:34 PM [facility] [employer] Ordering Physician: Divya Zapien MD Comparison: None [...] articulations of the hindfoot. SL: MELANIE 01/20/2017 [facility] Chest 1view DX Patient Name: DALLAS VALENCIA : 1965; Age: 51 years y/o Male MR: [id number] Study: Chest 1view DX dated 01/20/2017 Clinical Indication: Fever; Comparison: 09/18/2016 Small metallic density projects in the medial left neck. Clinical correlation needed. Cardiac and mediastinal structures are stable. No focal infiltrates within the lungs, no edema and no pneumothorax. SL: CSODERSYANG-PC 01/20/2017 [facility] Foot series DX RIGHT FOOT RADIOGRAPH [...] radiopaque foreign bodies are identified. SL:16 01/20/2017 [facility] Chest 1view DX Chest 1view DX [...] abnormality is noted in the chest. SL: [id number] 09/18/2016 [facility] Chest 1view DX Study: Chest 1view DX Clinical Indication: Dyspnea Comparison: Chest x-ray from 02/25/2016 FINDINGS: The cardiac silhouette is normal in size. The lungs are clear and without consolidation or congestion. No pleural effusion or pneumothorax is seen. The osseous structures are unremarkable. IMPRESSION: No acute cardiopulmonary disease. SL: MARITZA 09/15/2016 [facility] Ext Lower Arterial Doppler unilat US Please refer to the heart lab report, located under vascular in CARE4. 06/19/2016 [facility] Foot w contrast CT Patient Name: DALLAS VALENCIA : 1965; Age: 51 years y/o Male MR: [id number] Study: Right Foot w contrast CT 06/17/2016 [...] osteomyelitis, diabetic osteopathy, and/or Charcot joint. SL: [id number] 06/17/2016 [facility] Foot series DX Portable right foot 3 views: There is continued destruction of the talus and hindfoot compared to 02/21/2016. 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 No soft tissue gas is demonstrated. [id number] 06/17/2016 [facility] PICC reposition VR Fluoro time - .1 minute. Patient Name: DALLAS VALENCIA DOB: 1965; Age: 50 years y/o Male MR: [id number] * PICC repositioning. HISTORY: Malpositioned PICC line [...] the chest radiograph performed earlier today. : [id number] 02/25/2016 [facility] 1view DX Portable chest: The right arm PICC line tip passes into the right internal jugular vein. The cardiac silhouette is normal in size. The lungs and pleural spaces are clear. There is no other change compared to 12/28/2015. [id number] 02/25/2016 [facility] Foot w/wo contrast MRI MR RIGHT [...] medial malleolus of the distal tibia. SL: [id number] 02/23/2016 [facility] Shoulder wo contrast CT Patient Name: DALLAS VALENCIA : 1965; Age: 50 years y/o Male MR: [id number] Study: Shoulder wo contrast CT 02/22/2016 10:15 [...] from the floor today at 1425. SL: [id number] 02/22/2016 [facility] Shoulder series DX Patient Name: DALLAS VALENCIA : 1965; Age: 50 years y/o Male MR: [id number] Study: 3 view examination of the left shoulder dated 02/21/2016 at 1958. Clinical Indication: Limitation of movement; Comparison: 02/21/2016 at 0759 Radiopaque density that was in the left supraclavicular region on prior study not seen on this study. Degenerative changes seen about the left acromioclavicular joint. No fracture or dislocation. SL: [id number]-PC 02/21/2016 [facility] Foot series DX Study: Foot series DX 02/21/2016 7:22 AM CDT Patient Name: DALLAS VALENCIA MR: [id number] : 1965; Age: 50 years y/o Male [...] calcifications consistent with peripheral vascular disease. SL: [id number] 02/21/2016 [facility] Shoulder series DX Patient Name: DALLAS VALENCIA : 1965; Age: 50 years Male MR: [id number] Study: Shoulder series DX 02/21/2016 7:21 AM [...] 2. Left supraclavicular metallic foreign body. SL: [id number] 02/21/2016 [facility] Ankle 3 views DX Patient Name: DALLAS VALENCIA MR: [id number] : 1965; Age: 50 years y/o Male Study: Ankle 3 views DX 12/28/2015 5:16 PM [employer] Clinical Indication: Pain from a fall; Comparison: [...] due to trauma or inflammatory disease. SL: [id number] 12/28/2015 [facility] Chest 1view DX Patient Name: DALLAS VALENCIA : 1965; Age: 50 years y/o Male MR: [id number] Study: Chest 1view DX 12/28/2015 5:21 PM [employer] Clinical Indication: Chest pain; Comparison: 04/24/2014 FINDINGS: The cardiac silhouette is normal in size. The lungs are clear and without consolidation or congestion. No pleural effusion or pneumothorax is seen. The osseous structures are unremarkable. IMPRESSION: No acute cardiopulmonary disease. SL: [id number] 12/28/2015 [facility] Foot w/wo contrast MRI MR RIGHT [...] suspicious for early osteomyelitis. SL: 12 04/29/2015 [facility] Lower Arterial Doppler unilat US Please refer to the heart lab report, located under vascular in CARE4. 04/27/2015 [facility] Lower Arterial Doppler unilat US Right lower extremity arterial Doppler: CLINICAL HISTORY: Gangrene TECHNIQUE: Grayscale, color Doppler and spectral Doppler analysis of right lower extremities were performed with a linear high frequency transducer. FINDINGS: No significant plaque is visualized on the grayscale images in the CAN FILLING MACHINE OPERATOR, SFA and popliteal arteries. Triphasic flow is visualized in the CAN FILLING MACHINE OPERATOR and proximal portion of SFA. Monophasic flow is noted in the mid SFA, distal SFA, popliteal artery, DECK MATE and DPA vessels. The following velocities were measured: Peak systolic velocity, Right CAN F[employer]ING MACHINE OPERATOR 120 cm/sec Peak systolic velocity, Right SFA proximal 100 cm/sec Peak systolic velocity, Right SFA mid 75 cm/sec Peak systolic velocity, Right SFA distal 91 cm/sec Peak systolic velocity, Right popliteal 80 cm/sec Peak systolic velocity, Right DECK MATE at ankle and 30 cm/sec Peak systolic velocity, Right DPA at ankle 101 cm/sec SL:04/26/2015 [facility] Foot series DX RIGHT FOOT RADIOGRAPH [...] no radiographic evidence of osteomyelitis. SL: 04/26/2015 [facility] Chest 1view PROCEDURE: Chest 1view REASON FOR EXAM: STAT portable Chest X-ray post successful insertion. Indication: Correct Line Placement. CLINICAL INFORMATION PICC Line Placement COMPARISON: 01/2013 multiple x-rays. PICC line tip is in the superior vena cava distally. There are no consolidations, effusions or pneumothorax. The heart and pulmonary vasculature are normal. The osseous structures are grossly normal. SL: 04/08/2013 [facility] Foot w/wo contrast MR MRI of [...] be excluded. Clinical correlation is recommended. SL:04/06/2013 [facility] Foot series RIGHT FOOT, 3 VIEWS. INDICATION: Pain, swelling. COMPARISON: Right foot 01/31/2013 There is question of partial destruction of the base of the proximal phalanx of the great toe. Mild periosteal reaction has developed. The findings suggest osteomyelitis. There is soft tissue swelling in this region. No fracture is evident. Vascular calcifications are noted. SL: 04/01/2013 [facility] Consultation Notes No Data Provided for This Section Discharge Summaries No Data Provided for This Section History and Physicals No Data Provided for This Section Vital Signs Vital Sign Value Date Comments Source Weight 240 03/07/2017 [id number] Height 64 03/07/2017 2.16.840.1.301994.4.391.11.78138 Temperature Oral (F) 98.9 F 03/07/2017 2.16.840.1.938246.4.391.11.43209 Heart Rate 96 03/07/2017 2.16.840.1.856839.4.391.11.56420 Diastolic (mm Hg) 88 03/07/2017 2.16.840.1.522839.4.391.11.54291 Systolic (mm Hg) 142 03/07/2017 2.16.840.1.828226.4.391.11.87461 Weight 240 02/28/2017 2.16.840.1.124489.4.391.11.09019 Height 64 02/28/2017 2.16.840.1.557988.4.391.11.11184 Temperature Oral (F) 98.6 F 02/28/2017 2.16.840.1.570228.4.391.11.65186 Heart Rate 53 02/28/2017 2.16.840.1.734724.4.391.11.47896 Diastolic (mm Hg) 84 02/28/2017 2.16.840.1.128343.4.391.11.96420 Systolic (mm Hg) 163 02/28/2017 2.16.840.1.522317.4.391.11. Weight 240 02/14/2017 2.16.840.1.058781.4.391.11.79462 Height 64 02/14/2017 2.16.840.1.379163.4.391.11.04848 Temperature Oral (F) 98.8 F 02/14/2017 2.16.840.1.364891.4.391.11.16901 Heart Rate 97 02/14/2017 2.16.840.1.033628.4.391.11.77193 Diastolic (mm Hg) 78 02/14/2017 2.16.840.1.741940.4.391.11.54828 Systolic (mm Hg) 128 02/14/2017 2.16.840.1.211030.4.391.11.73743 Systolic (mm Hg) 113 01/30/2017 [facility] Diastolic (mm Hg) 75 01/30/2017 [facility] Temperature Oral (F) 97.5 F 01/30/2017 [facility] Heart Rate 96 01/30/2017 [facility] Respitory Rate 20 01/30/2017 [facility] Systolic (mm Hg) 128 01/30/2017 [facility] Diastolic (mm Hg) 93 01/30/2017 [facility] Respitory Rate 20 01/30/2017 [facility] Heart Rate 88 01/30/2017 [facility] Temperature Oral (F) 98.2 F 01/30/2017 [facility] Temperature Oral (F) 98.2 F 01/30/2017 [facility] Systolic (mm Hg) 140 01/30/2017 [facility] Diastolic (mm Hg) 87 01/30/2017 [facility] Heart Rate 81 01/30/2017 [facility] Respitory Rate 18 01/30/2017 [facility] Height 162.56 cm 01/21/2017 [facility] Weight 116.932 01/21/2017 [facility] BMI Calculated 44.25 01/21/2017 [facility] Weight 113.636 01/20/2017 [facility] BMI Calculated 41.69 01/20/2017 [facility] Height 165.1 cm 01/20/2017 [facility] Systolic (mm Hg) 148 09/20/2016 [facility] Diastolic (mm Hg) 83 09/20/2016 [facility] Heart Rate 75 09/20/2016 [facility] Respitory Rate 17 09/20/2016 [facility] Temperature Oral (F) 97.9 F 09/20/2016 [facility] Temperature Oral (F) 98.1 F 09/20/2016 [facility] Heart Rate 67 09/20/2016 [facility] Systolic (mm Hg) 162 09/20/2016 [facility] Diastolic (mm Hg) 89 09/20/2016 [facility] Respitory Rate 17 09/20/2016 [facility] Systolic (mm Hg) 153 09/20/2016 [facility] Diastolic (mm Hg) 83 09/20/2016 [facility] Respitory Rate 17 09/20/2016 [facility] Temperature Oral (F) 97.7 F 09/20/2016 [facility] Heart Rate 64 09/20/2016 [facility] BMI Calculated 39.71 09/15/2016 [facility] Weight 115 09/15/2016 [facility] Height 170.18 cm 09/15/2016 [facility] BMI Calculated 38.45 09/15/2016 [facility] Weight 111.364 09/15/2016 [facility] Height 170.18 cm 09/15/2016 [facility] Respitory Rate 18 06/22/2016 [facility] Systolic (mm Hg) 144 06/22/2016 [facility] Diastolic (mm Hg) 86 06/22/2016 [facility] Heart Rate 73 06/22/2016 [facility] Temperature Oral (F) 98 F 06/22/2016 [facility] Temperature Oral (F) 98.1 F 06/22/2016 [...] Calculated 40.02 06/17/2016 [facility] Weight 109.091 06/17/2016 [facility] Heart Rate 78 02/25/2016 [facility] Temperature Oral (F) 98.2 F 02/25/2016 [facility] Systolic (mm Hg) 151 02/25/2016 [facility] Diastolic (mm Hg) 87 02/25/2016 [facility] Respitory Rate 19 02/25/2016 [facility] Temperature Oral (F) 98.5 F 02/25/2016 [facility] Respitory Rate 18 02/25/2016 [facility] Systolic (mm Hg) 143 02/25/2016 [facility] Diastolic (mm Hg) 84 02/25/2016 [facility] Heart Rate 78 02/25/2016 [facility] Respitory Rate 17 02/25/2016 [facility] Heart Rate 82 02/25/2016 [facility] Systolic (mm Hg) 155 02/25/2016 [facility] Diastolic (mm Hg) 88 02/25/2016 [facility] Temperature Oral (F) 98.6 F 02/25/2016 [...] [facility] Temperature Oral (F) 98.4 F 12/29/2015 [facility] Heart Rate 80 12/29/2015 [facility] Respitory Rate 18 12/29/2015 [facility] Systolic (mm Hg) 138 12/29/2015 [facility] Diastolic (mm Hg) 78 12/29/2015 [facility] Temperature Oral (F) 98.4 F 12/29/2015 [facility] Respitory Rate 18 12/29/2015 [facility] Heart Rate 88 12/29/2015 [facility] Systolic (mm Hg) 142 12/29/2015 [facility] Diastolic (mm Hg) 86 12/29/2015 [facility] Temperature Oral (F) 98.2 F 12/29/2015 [facility] Weight 99.091 12/28/2015 [facility] BMI Calculated 36.35 12/28/2015 [facility] Height 165.1 cm 12/28/2015 [facility] Weight 246.8 06/04/2015 [facility] Height 56.0 06/04/2015 [facility] Temperature Oral (F) 98.6 F 06/04/2015 [facility] Heart Rate 100 06/04/2015 [facility] Diastolic (mm Hg) 79 06/04/2015 [facility] Systolic (mm Hg) 117 06/04/2015 [facility] Respitory Rate 20 06/04/2015 [facility] Respitory Rate 16 05/03/2015 [facility] Heart Rate 68 05/03/2015 [facility] Systolic (mm Hg) 144 05/03/2015 [facility] Diastolic (mm Hg) 88 05/03/2015 [facility] Temperature Oral (F) 97.9 F 05/03/2015 [facility] Systolic (mm Hg) 135 05/03/2015 [facility] Diastolic (mm Hg) 82 05/03/2015 [facility] Respitory Rate 16 05/03/2015 [facility] Heart Rate 73 05/03/2015 [facility] Temperature Oral (F) 98.8 F 05/03/2015 [facility] Temperature Oral (F) 97.9 F 05/03/2015 [facility] Heart Rate 72 05/03/2015 [facility] Respitory Rate 16 05/03/2015 [facility] Systolic (mm Hg) 132 05/03/2015 [facility] Diastolic (mm Hg) 82 05/03/2015 [facility] Weight 110.455 04/30/2015 [facility] Height 165.1 cm 04/26/2015 [facility] BMI Calculated 36.69 04/26/2015 [facility] Weight 100 04/26/2015 [facility] Weight 109.091 04/26/2015 [facility] Systolic (mm Hg) 150 05/09/2014 [facility] Diastolic (mm Hg) 88 05/09/2014 [facility] Respitory Rate 17 05/09/2014 [facility] Heart Rate 77 05/09/2014 [facility] Temperature Oral (F) 98.0 F 05/09/2014 [facility] Heart Rate 76 05/09/2014 [facility] Temperature Oral (F) 98.0 F 05/09/2014 [facility] Systolic (mm Hg) 149 05/09/2014 [facility] Respitory Rate 17 05/09/2014 [facility] Diastolic (mm Hg) 83 05/09/2014 [facility] Temperature Oral (F) 98.5 F 05/09/2014 [facility] Heart Rate 80 05/09/2014 [facility] Diastolic (mm Hg) 82 05/09/2014 [facility] Respitory Rate 16 05/09/2014 [facility] Systolic (mm Hg) 142 05/09/2014 [facility] Weight 109.091 05/04/2014 [facility] BMI Calculated 40.02 05/04/2014 [facility] Height 165.1 cm 05/04/2014 [facility] Weight 109 04/24/2014 [facility] BMI Calculated 39.99 04/24/2014 [facility] Height 165.1 cm 04/24/2014 [facility] Heart Rate 72 02/07/2013 [facility] Systolic (mm Hg) 150 02/07/2013 [facility] Respitory Rate 20 02/07/2013 [facility] Diastolic (mm Hg) 82 02/07/2013 [facility] Temperature Oral (F) 98.5 F 02/07/2013 [facility] Temperature Oral (F) 98.5 F 02/07/2013 [facility] Diastolic (mm Hg) 82 02/07/2013 [facility] Systolic (mm Hg) 150 02/07/2013 [facility] Respitory Rate 20 02/07/2013 [facility] Temperature Oral (F) 98.5 F 02/07/2013 [facility] Respitory Rate 20 02/07/2013 [facility] Systolic (mm Hg) 150 02/07/2013 [facility] Diastolic (mm Hg) 82 02/07/2013 [facility] Heart Rate 72 02/07/2013 [facility] Heart Rate 74 02/07/2013 [facility] Weight 116 02/07/2013 [facility] Height 165.1 cm 02/07/2013 [facility] Height 165.1 cm 02/01/2013 [facility] Weight 109.091 02/01/2013 [facility] Weight 109.091 01/31/2013 [facility] Height 165.1 cm 01/31/2013 [facility] Temperature Oral (F) 98.6 F 10/26/2011 [facility] Heart Rate 74 10/26/2011 [facility] Respitory Rate 18 10/26/2011 [facility] Systolic (mm Hg) 138 10/26/2011 [facility] Diastolic (mm Hg) 78 10/26/2011 [facility] Respitory Rate 16 10/26/2011 [facility] Heart Rate 86 10/26/2011 [facility] Temperature Oral (F) 98.1 F 10/26/2011 [facility] Weight 116.364 10/26/2011 [facility] Height 165.10 cm 10/26/2011 [facility] Systolic (mm Hg) 168 10/26/2011 [facility] Diastolic (mm Hg) 49 10/26/2011 [facility] Encounters Location Location Details Encounter Type Encounter Number Reason For Visit Attending Provider ADM Date DC Date Status Source [facility] Emergency [id number] YIFAN BURGESS 10/26/2011 10/26/2011 Discharged [facility] Inpatient [id number] DIABETIC FOOT ADNAN ASA 01/31/2013 02/07/2013 Active [facility] [place] [id number] OSTEROMYELITIS ADNAN ASA 02/08/2013 Active [facility] Inpatient [id number] TASO MOUGOURIS 04/01/2013 04/09/2013 Discharged [facility] OP Recurring [id number] Bairon Luz 04/26/2014 05/26/2014 [facility] Inpatient [id number] [facility] Luz 05/04/2014 05/09/2014 [facility] Inpatient [id number] Ayla Fletcher 04/26/2015 05/03/2015 [facility] Ayla Fletcher MD Initial visit [id number] 06/04/2015 06/04/[address] [facility] Unknown [id number] 08/18/2015 08/18/2015 [facility] Unknown [id number] 08/18/2015 08/18/2015 [facility] home health MEAGHAN [id number] 09/28/2015 09/28/2015 [facility] [id number] Nola Sanchez 12/28/2015 12/29/2015 [facility] Inpatient [id number] Bairon Escobar 02/21/2016 02/25/2016 [facility] Inpatient [id number] Teddy Chilel 06/17/2016 06/22/2016 [facility] Inpatient [id number] Mikaela Bhaskar 09/15/2016 09/21/2016 [facility] Inpatient [id number] Nieves Patel 01/20/2017 01/30/2017 [facility] [place] [id number] FOOT OSTEOMYLITIS PHUONG ZAPIEN Active [facility] Procedures Procedure Code Date Perfomer Comments Source Amputation great toe [id number] 04/02/2013 [facility] Amputation of toe [id number] [facility] Amputation of the foot [id number] [facility] Assessment and Plan Assessment and Plan [...] > 100.4 F, Start date: 01/20/17 18:23:00 [employer], Duration: 30 day, Stop date: 02/19/17 18:22:00 CDT acetaminophen-hydrocodone 325 mg-5 mg oral tablet, 1 tab, Route: PO, Dosing Weight 113.636, kg, Q4H, PRN Pain Score 4-6, Start date: 01/20/17 18:23:00 [employer], Duration: 30 day, Stop date: 02/19/17 18:22:00 CDT amLODIPine, 10 mg, Route: PO, Drug form: TAB, Daily, Dosing Weight 113.636, kg, Start date: 01/21/17 9:00:00 CDT, Duration: 30 day, Stop date: 02/19/17 9:00:00 CDT cefepime, 1 gm, Route: IVPB, ABXQ8H, Dosing Weight 113.636, kg, (CrCl >/=50 ml/min), Start date: 01/20/17 19:00:00 [employer], Duration: 30 day, Stop date: 02/19/17 11:00:00 CDT Dextrose 50% Syringe, 25 mL, Route: IVP, Dosing Weight 113.636, kg, PRN, PRN Blood Glucose Results, Start date: 01/20/17 18:25:00 [employer], Duration: 30 day, Stop date: 02/19/17 19:24:00 CDT Dextrose 50% Syringe, 50 mL, Route: IVP, Dosing Weight 113.636, kg, PRN, PRN Blood Glucose Results, Start date: 01/20/17 18:25:00 [employer], Duration: 30 day, Stop date: 02/19/17 19:24:00 CDT glucagon, 1 mg, Route: IM, PRN, Dosing Weight 113.636, kg, PRN Blood Glucose Results, Start date: 01/20/17 18:25:00 [employer], Duration: 30 day, Stop date: 02/19/17 19:24:00 CDT insulin aspart, 2 unit, Route: SUB-Q, TID-Before Meals, Dosing Weight 113.636, kg, PRN Blood Glucose Results, Start date: 01/20/17 18:25:00 [employer], Duration: 30 day, Stop date: 02/19/17 18:24:00 CDT insulin aspart, 1 unit, Route: SUB-Q, TID-Before Meals, Dosing Weight 113.636, kg, PRN Blood Glucose Results, Start date: 01/20/17 18:25:00 [employer], Duration: 30 day, Stop date: 02/19/17 18:24:00 CDT insulin aspart, 3 unit, Route: SUB-Q, TID-Before Meals, Dosing Weight 113.636, kg, PRN Blood Glucose Results, Start date: 01/20/17 18:25:00 [employer], Duration: 30 day, Stop date: 02/19/17 18:24:00 CDT insulin aspart, 4 unit, Route: SUB-Q, TID-Before Meals, Dosing Weight 113.636, kg, PRN Blood Glucose Results, Start date: 01/20/17 18:25:00 [employer], Duration: 30 day, Stop date: 02/19/17 18:24:00 CDT insulin aspart, 5 unit, Route: SUB-Q, TID-Before Meals, Dosing Weight 113.636, kg, PRN Blood Glucose Results, Start date: 01/20/17 18:25:00 [employer], Duration: 30 day, Stop date: 02/19/17 18:24:00 CDT insulin isophane-NPH, 10 unit, Route: SUB-Q, BID, Dosing Weight 113.636, kg, Start date: 01/21/17 9:00:00 CDT, Duration: 30 day, Stop date: 02/19/17 17:00:00 CDT ondansetron, 4 mg, Route: IVP, Q6H, Dosing Weight 113.636, kg, PRN Nausea and Vomiting, Start date: 01/20/17 18:23:00 [employer], Duration: 30 day, Stop date: 02/19/17 18:22:00 CDT Sodium Chloride 0.9% IV 1000 mL, 1,000 mL, Rate: 100 ml/hr, Infuse over: 10 hr, Route: IV, Dosing Weight 113.636 kg, Total Volume: 1,000, Start date: 01/20/17 18:26:00 [employer], Duration: 30 day, Stop date: 02/19/17 18:25:00 [...] wound care, iv anbx, wound cx 01/30/2017 [facility] Extracted from:Title: Clinical Document Author: Jayleen Ríos MD Date: 09/20/16 Progress Daily [facility] Completed: Sep, 16:53 by Jayleen Ríos MD RM: 156 - 1P, SE C1A VALENCIADALLAS DUNCAN 51y (: 1965) M Attending: Mikaela Muro MD Service: Internal Medicine Reason for Admission: DEHYDRATION, DIABETIC KETOSIS, DIABETIC FOOT INFECTION Working DRG: MISC DISORDERS OF NUTRITION,METABOLISM,FLUIDS/ELECTROLYTES W/O FDC Code status: Full Code [Ordered] Current diet: Isolation: Contact [Ordered] Allergies: penicillins SUBJECTIVE feels better. 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 AAox3 NO FND Skin rt foot plantar [...] high risk for limb los s with [facility] follow up abx per id as he [...] 200 ml/hr 09/19/16 ciprofloxacin 400 mg IVPB [id number] 200 ml/hr 09/15/16 (Suspended) heparin 5,000 unit [...] NP Date: 06/22/16 Progress Note - Daily [facility] Completed: , JUN 22, 2016, 08:07 by [...] Syringe) 25 gm IVP PRN 06/17/16 acetaminophen-hydrocodone ([place] 10/325 oral tablet) 1 tab PO Q4H [...] Document Author: Maura Urban MD Date: 06/17/16 [facility] INFECTIOUS DISEASES CONSULTATION NOTE Maura Urban M.D. [...] received about 4 weeks of treatment at [place] then left early to address issues at [...] 0.9% INJ 250 mL 1,000 mg IVPB [id number] 250 ml/hr ALLERGIES: Allergies (1) Active Reaction [...] Document Author: Maura Urban MD Date: 02/25/16 [facility] INFECTIOUS DISEASES PROGRESS NOTE MAURA URBAN M.D. [...] IVP Q8H 02/23/16 vancomycin 1.5 gm IVPB [id number] 166.67 ml/hr Allergies (1) Active Reaction penicillins [...] understanding. 05/03/2015 [facility] Extracted from:Title: IP [id number] Author: Pranav Corbin MD Date: 05/09/14 Impression [...] with Dr Zapien, he can be discharged [id number] hours of treatment. 2. Diabetes II: On medication and sliding scale. 3. Hypertension: On medication and stable at this time. Discharge planning as per ID recommendation. 05/09/2014 [facility] Plan of Care No Data Provided for This Section Social History Social History Date Source Social History TypeResponse Alcohol Past, Frequency: 1-2 times per week. Smoking Status Former smoker; Exposure to Tobacco Smoke None; Cigarette Smoking Last 365 Days No; Reg Smoking Cessation Counseling No 01/21/2017 [facility] Social History ElementQualifiersDate Reported Do you smoke? . Answer: No Sep 02, 2015 Tobacco Use: . Are you a:: never smoker Sep 02, 2015 Marital Status: . Sep 02, 2015 Do you exercise? . Answer: No Sep 02, 2015 Do you drink alcohol? . Status: No Sep 02, 2015 Occupation: . Unemployed Sep 02, 2015 09/02/2015 [facility] Social History ElementQualifiersDate Reported Do [...]
--- NOTE | 2019-05-19 15:40 | NUR ---
report to ramiro turpin
[2019-05-19 15:45] LABS: ABG HCO3 18 mmol/L (23-28); ABG PCO2 33 mmHg (41-51); ABG PH 7.36 (7.31-7.41); ABG PO2 115 mmHg (80-105)
--- NOTE | 2019-05-19 16:34 | NUR ---
pt sent to mri then icu
[2019-05-19] MEDS ORDERED: FENTANYL CITRATE/PF 100MCG/2 ML INJ ONE (18:40)
[2019-05-19] MEDS ORDERED: MIDAZOLAM HCL 2 MG/2 ML VIAL ONE (18:40)
[2019-05-19] MEDS: METOPROLOL TARTRATE INJ 1 MG/ML VIAL IV PRN (18:55)
--- NOTE | 2019-05-19 19:24 | NUR ---
patient noted with nonraised red "rash" to bilateral upper extremities. pt denies rash this morning. no distress noted. denies itching or any distress from areas. will continue to monitor
--- NOTE | 2019-05-19 19:40 | NUR ---
Consults called for Dr Yajaira Uribe and Dr. Macdonald. New orders received from Dr. Uribe and awaiting return call from Dr. 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 Uribe informed of petecchiae on bilateral arms, no new orders but IV antibiotics changed
[2019-05-19] MEDS ORDERED: DEXTROSE 50% SYRINGE 50 ML IV PRN (19:45)
--- NOTE | 2019-05-19 19:47 | NUR ---
Dr. Sosa returned call, no new orders
[2019-05-19] MEDS ORDERED: DIGOXIN INJ 0.25 MG/ML 2 ML AMP IV ONE (20:00)
[2019-05-19] MEDS ORDERED: CLINDAMYCIN 600MG / 50ML 50 ML IV SCH (20:00)
[2019-05-19] MEDS ORDERED: SODIUM CHLORIDE 0.9% 250ML 250 ML ONE (20:02)
[2019-05-19] MEDS: LEVOFLOXACIN 500MG/D5W 100ML 100 ML IV SCH (20:12)
[2019-05-19] MEDS: ENOXAPARIN SODIUM INJ 100 MG/ML SYR SC SCH (21:18)
[2019-05-19] MEDS: CLINDAMYCIN 600MG / 50ML 50 ML IV SCH (21:18)
[2019-05-19] MEDS: INSULIN LISPRO 100 UNIT/1 ML 3ML VIAL SQ SCH (21:29)
[2019-05-20] VITALS (24 sets, daily range): BP systolic 92–132; BP diastolic 42–95
[2019-05-20] MEDS: METOPROLOL TARTRATE INJ 1 MG/ML VIAL IV PRN ×3 (01:03→10:00)
[2019-05-20] MEDS: CLINDAMYCIN 600MG / 50ML 50 ML IV SCH ×4 (03:00→21:21)
[2019-05-20 05:03] LABS: BASOPHILS % 0.3 % (0.0-1.0); EOSINOPHILS # (AUTO) 0.1 (0.0-0.4); EOSINOPHILS % 1.2 % (0.0-6.0); HEMATOCRIT 28.1 % (38.2-49.6); HEMOGLOBIN 9.4 g/dL (14.0-18.0); LYMPHOCYTES # (AUTO) 0.8 (1.0-3.2); LYMPHOCYTES % 6.7 % (18.0-39.1); MEAN CORPUSCULAR HEMOGLOBIN 28.9 pg (28-32); MEAN CORPUSCULAR HGB CONC 33.5 g/dL (31-35); MEAN CORPUSCULAR VOLUME 86.5 fL (81-99); MONOCYTES # (AUTO) 0.7 (0.2-0.8); MONOCYTES % 5.9 % (4.4-11.3); NEUTROPHILS # (AUTO) 10.1 (2.1-6.9); PLATELET COUNT 203 x10e3/uL (140-360); RED BLOOD COUNT 3.25 x10e6/uL (4.3-5.7); RED CELL DISTRIBUTION WIDTH 13.9 % (11.7-14.4)
[2019-05-20 05:23] LABS: ANION GAP 11.6 mmol/L (8-16); BLOOD UREA NITROGEN 38 mg/dL (7-26); BUN/CREATININE RATIO 34 (6-25); CARBON DIOXIDE 21 mmol/L (22-29); CHLORIDE 97 mmol/L (98-107); CREATININE, SERUM 1.11 mg/dL (0.72-1.25); EST GLOMERULAR FILTRATION RATE > 60 ML/MIN (60-); GLUCOSE 170 mg/dL (74-118); POTASSIUM 3.6 mmol/L (3.5-5.1); SODIUM 126 mmol/L (136-145)
[2019-05-20 05:35] LABS: B-TYPE NATRIURETIC PEPTIDE2 583.2 pg/mL (0-100)
[2019-05-20 05:48] LABS: FREE T4 (FREE THYROXINE) 0.89 ng/dL (0.8-1.8); THYROID STIMULATING HORMONE 4.113 uIU/mL (0.350-4.940)
[2019-05-20 06:20] LABS: ERYTHROCYTE SEDIMENTATION RATE 95 mm/hr (0-13)
[2019-05-20] MEDS ORDERED: ACETAMINOPHEN 325 MG TAB PO PRN (06:45)
[2019-05-20] MEDS ORDERED: METOPROLOL TARTRATE INJ 1 MG/ML VIAL IV ONE ×2 (07:30→10:30)
[2019-05-20] MEDS: FAMOTIDINE 20 MG TAB PO SCH ×2 (07:57→16:08)
[2019-05-20] MEDS: INSULIN LISPRO 100 UNIT/1 ML 3ML VIAL SQ SCH ×4 (07:58→20:22)
[2019-05-20] MEDS: MULTIVITAMINS/MINERALS TAB PO SCH (07:59)
[2019-05-20] MEDS: ASCORBIC ACID 500 MG TAB PO SCH ×2 (07:59→16:08)
[2019-05-20] MEDS: ZINC SULFATE 220 MG CAP PO SCH ×2 (07:59→16:08)
[2019-05-20] MEDS: FUROSEMIDE INJ 10 MG/ML 4 ML VIAL IV SCH ×2 (07:59→16:08)
[2019-05-20] MEDS: MAGNESIUM OXIDE 400 MG TAB PO SCH ×2 (07:59→16:08)
[2019-05-20] MEDS: ENOXAPARIN SODIUM INJ 100 MG/ML SYR SC SCH ×2 (08:00→20:18)
[2019-05-20] MEDS: OYST-CAL-D 500MG TABLET PO SCH ×2 (08:00→16:08)
--- NOTE | 2019-05-20 11:20 | Consultation ---
DATE OF CONSULTATION: Pulmonary Critical Care Consultation CHIEF COMPLAINT: Osteomyelitis with sepsis and atrial fibrillation. HISTORY OF PRESENT ILLNESS: The patient is a 54-year-old man. 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 The patient received some antibiotics, but has continued to have fevers and pain. He is subsequently sent to the emergency department for cellulitis and osteomyelitis. The patient also had atrial fibrillation upon arrival in the emergency department. He required medications for rate control. PAST SURGICAL HISTORY: Right foot surgery. PAST MEDICAL HISTORY: 1. Diabetes with insulin. 2. Systolic congestive heart failure. 3. Chronic wound of the right foot. FAMILY HISTORY: Noncontributory. SOCIAL HISTORY: The patient is not an active smoker or drinker. ALLERGIES: THE PATIENT IS NOT ALLERGIC TO PENICILLIN. REVIEW OF SYSTEMS: He did have some fevers. He has no headache. He is not having any throat pain. He has no neck pain. He does not complain of chest pain. He is not having difficulty breathing. He has no nausea or vomiting. He is not having any abdominal pain. He does note leg edema. He notes pain and swelling in his left foot. PHYSICAL EXAMINATION: VITAL SIGNS: The patient is afebrile. The heart rate is 120 to 130 and is in atrial fibrillation. He is not having any murmurs. CARDIAC: Reveals a regular rate and rhythm with a normal S1 and S2. There are no murmurs or rubs. LUNGS: Auscultation of lungs reveals clear breath sounds bilaterally. ABDOMEN: Soft and nontender. There is no rebound or guarding. EXTREMITIES: Show 2+ leg edema. There is a wound on the foot that is bandaged. LABORATORY DATA: Sodium is 126 and the BUN to creatinine ratio is 38:1.11. The BNP is 583. The white blood cell count of 11.9 and the hemoglobin is 9.4. The platelet count is 203. RADIOGRAPHIC DATA: X-ray of the foot shows periosteal reaction in the right foot on the lateral aspect. IMPRESSION: 1. Osteomyelitis with secondary sepsis, present on admission. 2. Atrial fibrillation with poorly controlled rate. 3. Acute on chronic systolic congestive heart failure. 4. Hyponatremia. 5. Obesity. 6. Diabetes. PLAN: 1. The patient will be continued on antibiotics. We are awaiting Infectious Disease consultation. 2. Continue amiodarone. 3. Lovenox. 4. Lasix and diuresis. 5. Monitor and control blood sugars. MD HANNAH Garvey/MOD[facility] /[id number]
[2019-05-20] MEDS ORDERED: DIGOXIN INJ 0.25 MG/ML 2 ML AMP IV ONE (13:15)
--- NOTE | 2019-05-20 14:17 | Consultation ---
DATE OF CONSULTATION: 05/20/2019 Cardiology Consultation REQUESTING PHYSICIAN: Dr. Wilkes. REASON FOR CONSULTATION: Atrial flutter. HISTORY OF PRESENT ILLNESS: This is a 54-year-old man with history of diabetes mellitus, who presented with complaints of left foot pain and swelling. In the ER, he was noted to be in atrial flutter with rapid ventricular response for which Cardiology is consulted. The patient was admitted to the ICU for management of his atrial flutter. He denies any history of arrhythmia or cardiac disease. He denies chest pain, shortness of breath, palpitations, orthopnea, or PND. REVIEW OF SYSTEMS: Negative except as per HPI. PAST MEDICAL HISTORY: Diabetes mellitus. PAST SURGICAL HISTORY: 1. Appendectomy. 2. Right transmetatarsal amputation. ALLERGIES: PLEASE SEE EMR. MEDICATIONS: Please see medication list. SOCIAL HISTORY: Denies tobacco, alcohol, or illicit drugs. FAMILY HISTORY: Denies. PHYSICAL EXAMINATION: VITAL SIGNS: Temperature 99.1 degrees, pulse 128, respiratory rate 25, blood pressure 131/89, and oxygen saturation 100% on 3 L nasal cannula. GENERAL: Obese gentleman, in no acute distress, awake and alert. HEENT: Normocephalic, atraumatic. Pupils equal. No scleral icterus. NECK: Supple. No thyromegaly or cervical lymphadenopathy. No carotid bruits. LUNGS: Clear to auscultation bilaterally. No wheezes or crackles. CARDIOVASCULAR: Tachycardic, irregular. No murmur. Normal S1, S2. ABDOMEN: Soft, nontender. EXTREMITIES: 1+ pitting edema. Dressing is present on the right foot. There is a blister with surrounding erythema on the left foot. NEUROLOGIC: Nonfocal exam. LABORATORY DATA: WBC 11.89, hemoglobin 9.4, hematocrit 28.1, platelets 203. Sodium 136, potassium 3.6, chloride 97, CO2 of 21, BUN 38, creatinine 1.11. BNP 583. IMAGING DATA: X-ray of the foot, soft tissue defect on the plantar aspect of the lateral right foot with subcutaneous air and periosteal reaction of the underlying bone, findings raise concern for underlying osteomyelitis. TELEMETRY: Atrial flutter with rapid ventricular response. IMPRESSION: 1. Atrial flutter with rapid ventricular response. 2. Osteomyelitis. 3. Left lower extremity cellulitis. 4. Newly diagnosed systolic heart failure. 5. Hyponatremia. 6. Diabetes mellitus. 7. Obesity. RECOMMENDATIONS: Schedule digoxin and metoprolol. Continue monitoring the patient closely on telemetry. Echocardiogram revealed systolic heart failure. The patient will need to be placed on metoprolol succinate upon discharge. He will need evaluation of his coronary anatomy once his sepsis has resolved and renal function stabilizes. In the meantime, continue Lovenox for CVA prophylaxis. Agree with gentle IV fluids. Antibiotics per Infectious Disease. Wound care per Podiatry. Thank you for this consult. We will continue to follow. Nieves Sosa MD [facility]/MOD[facility] /[id number]
--- NOTE | 2019-05-20 14:49 | Diagnostic Imaging Report ---
TECHNIQUE: Magnetic resonance imaging of the RIGHT foot was performed WITHOUT injected contrast. HISTORY: Heel and hindfoot infection, rule out osteomyelitis COMPARISON: Right foot radiographs May 19, 2019. DISCUSSION: Bone: * Status post transmetatarsal amputation at the level of the proximal to mid metatarsal diaphyses. * Bone marrow edema within the distalmost aspect of the fibula with corresponding confluent decreased fatty marrow signal. * Sclerosis of the residual fifth metatarsal bone, with absence/positive the of associated edema. * Fragmentation and collapse of the talus and mid calcaneus. * Nonspecific bone marrow edema about the residual bones adjacent to the subtalar joint and tibiotalar joint with relative preservation of the fatty marrow signal. Joints: Polyarticular arthropathy, most severe of the subtalar joint with prominent subluxation. Soft Tissues: Soft tissue defects, including the lateral aspect of the ankle adjacent to the tip of the lateral malleolus and lateral aspect of the midfoot adjacent to the residual fifth metatarsal bone. Soft tissue edema without a drainable abscess. IMPRESSION: 1. Findings compatible with acute/active osteomyelitis involving the tip of the lateral malleolus. 2. Findings which may reflect chronic osteomyelitis involving the residual portion of the fifth metatarsal bone. 3. 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 Signed by: Dr. Marcos Torres D.O., M.M.M. on 05/20/2019 2:45 PM
--- NOTE | 2019-05-20 16:07 | Consultation ---
DATE OF CONSULTATION: REASON FOR CONSULTATION: Infection of the left foot. Allergic to penicillin. HISTORY OF PRESENT ILLNESS: This patient who is a very pleasant 54-year-old male, history of diabetes mellitus, history of obesity, history of neuropathy. The patient who has history of right foot surgery, TMA, osteomyelitis, congestive heart failure, comes in with some itchy rash noted on the left foot. The patient came to the hospital. He had some lesions noted in his left foot. He was given cefepime. Apparently, had skin rash, so it was stopped. He is currently on Levaquin and clindamycin. I am asked to see him. He is currently in intensive care unit because he has some arrhythmia, but the patient is doing well. REVIEW OF SYSTEMS: HEENT: Negative. PULMONARY: Negative. CARDIAC: Negative. : Negative. SKIN: There is a rash noted on upper extremity and also there is itchy rash on the left foot, which is different than the rash he had on upper extremity after he got cefepime. Other symptoms within normal limit. MEDICATION LIST: He is currently on clindamycin, Tylenol, insulin, Mag oxide, Lasix, levofloxacin. ALLERGIES: PENICILLIN. His blood cultures no growth. His white count on admission was 17.58, came down to 11.8, hemoglobin 9.4, hematocrit 28, sodium 126, potassium 3.6, creatinine 1.1. PHYSICAL EXAMINATION: GENERAL: He is currently alert, oriented, does not seem to be in acute distress. VITAL SIGNS: Stable. Currently afebrile. HEENT: Normocephalic. Not icteric. NECK: Supple. CHEST: Clear bilateral. HEART: S1, S2. No S3, S4, or murmur. ABDOMEN: Soft. Obese. Bowel sounds present. No tenderness. No hepatosplenomegaly. EXTREMITIES: There is erythema, there is edema noted on the left foot. The right foot seems to have clean dressing on it. Pulses weak distally. IMPRESSION: 1. Infection of the left foot, concerned about osteo. Agree with clindamycin, Levaquin. Agree with MRI. 2. Allergic reaction to cefepime. The patient has small few lesions of papular lesions noted on upper extremities. Observe clinically at the present time. 3. Diabetes mellitus with neuropathy. 4. Chronic kidney disease. 5. Arrhythmia. The patient will be followed by Cardiology. 6. We will follow with you. MD BILLIE Warner/CE /[id number]
--- NOTE | 2019-05-20 16:41 | NUR ---
WOUND CARE CONSULTATION: THIS IS A 54 YEAR OLD PATIENT ADMITTED TO [facility] FOR OSTEOMYELITIS. PATIENT HAS HISTORY OF DM TYPE [address] GAMBLE IS CONSULTED HORSE RACING MANAGER ON THE CASE AND PATIENT HAS SEEN DR. GAMBLE IN HER CLINIC PREVIOUSLY. HEAD TO TOE SKIN ASSESSMENT PERFORMED. PATIENT HAS CELLULITIC SIGNS TO HIS LEFT LEG, REDNESS, 3+ PITTING EDEMA, WARM TO TOUCH. UNABLE TO PALPATE PULSES TO RIGHT AND LEFT FOOT. RIGHT LEG 3+ PITTING EDEMA NOTED WELL. PATIENT HAS AN OLD RIGHT TMA SITE. PATIENT HAS A LEFT CALF STABLE ESCHAR MEASURING 1X2.2X0.1CM. PATIENT HAS A LEFT DORSAL FOOT BLISTER MEASURING 3.3X2CM. PATIENT HAS A RIGHT LATERAL DISTAL FOOT LYNN 3 DIABETIC ULCER MEASURING 2X2.3X1.6CM, 90% ESCHAR AND 10% SLOUGH TO WOUND BED. PATIENT HAS A RIGHT LATERAL PROXIMAL FOOT LYNN 3 DIABETIC ULCER MEASURING 4.3X3.5X1.5CM, 80% ESCHAR AND 20% PINK GRANULATION TO WOUND BED AND ULCER IS MALODOROUS. PATIENT HAS A RIGHT LOWER LEG VENOUS ULCER MEASURING 0.4X0.7X1.4CM, 100% PINK GRANULATION TO WOUND BED, MALODOROUS WITH MODERATE PURULENT DRAINAGE NOTED. PATIENT HAS GENERALIZED PETECHIA NOTED TO ABDOMEN AND BUE FROM A PCN ALLERGY AND RECENT REACTION. PATIENT STATES IT IS RESOLVING AND DENIES ANY ITCHING. I SPOKE WITH DR. GAMBLE CONCERNING PLAN OF CARE. SHE WILL ROUND AND SEE PATIENT IN MORNING AND RECONSULT WOUND CARE IF NEEDED. DRESSING ORDERS GIVEN. LABS: WBC11.89 ESR95 GkcP8T6.8 [id number] ALB2.0 BLOOD CULTURE = PENDING WOUND CULTURE = PENDING RIGHT FOOT XRAY = POSITIVE OSTEOMYELITIS MRI OF RIGHT FOOT = POSITIVE OSTEOMYELITIS BLE VENOUS DUPLEX = PENDING BLE ARTERIAL DUPLEX = PENDING MEDICATIONS: CLINDAMYCIN LEVOFLOXACIN RECOMMENDATION: -APPLY ALTERNATING PRESSURE RELIEF MATTRESS. -APPLY BILATERAL HEEL PROTECTORS WITH PILLOW SUSPENSION. -TURN EVERY 2 HOURS AND PRN. -NURSING TO CLEAN RIGHT PROXIMAL LATERAL FOOT LYNN 3 DIABETIC ULCER AND RIGHT DISTAL LATERAL FOOT LYNN 3 DIABETIC ULCER WITH NORMAL SALINE, PAT DRY, APPLY BETADINE WET TO DRY DRESSING, KERLIX; CHANGE DAILY AND PRN. -NURSING TO CLEAN RIGHT LOWER LEG VENOUS ULCER WITH NORMAL SALINE, PAT DRY, APPLY MAXORB AG, ABD, AND KERLIX; CHANGE DAILY AND PRN. -NURSING TO MONITOR LEFT DORSAL FOOT BLISTER DAILY. THANK YOU FOR THIS WOUND CARE CONSULT. Addendum: 05/20/19 at 1722 by Anna Karimi RN Amended: Links added.
[2019-05-20] MEDS: METOPROLOL TARTRATE 25 MG TAB PO SCH ×2 (17:03→23:58)
--- NOTE | 2019-05-20 17:31 | NUR ---
Gauze and kerlix dressing applied to R lower extremity. Arterial and venous Doppler done to bilateral lower extremities. management consulting came to assess patient.
[2019-05-20] MEDS: LEVOFLOXACIN 500MG/D5W 100ML 100 ML IV SCH (20:18)
[2019-05-21] VITALS (15 sets, daily range): BP systolic 99–131; BP diastolic 50–96
[2019-05-21] MEDS: METOPROLOL TARTRATE INJ 1 MG/ML VIAL IV PRN (01:09)
[2019-05-21] MEDS: CLINDAMYCIN 600MG / 50ML 50 ML IV SCH ×2 (03:07→09:00)
[2019-05-21 05:21] LABS: BASOPHILS % 0.3 % (0.0-1.0); EOSINOPHILS # (AUTO) 0.1 (0.0-0.4); EOSINOPHILS % 0.6 % (0.0-6.0); HEMATOCRIT 26.7 % (38.2-49.6); LYMPHOCYTES # (AUTO) 0.8 (1.0-3.2); LYMPHOCYTES % 7.2 % (18.0-39.1); MEAN CORPUSCULAR HEMOGLOBIN 29.2 pg (28-32); MEAN CORPUSCULAR HGB CONC 33.7 g/dL (31-35); MEAN CORPUSCULAR VOLUME 86.7 fL (81-99); MONOCYTES # (AUTO) 0.7 (0.2-0.8); MONOCYTES % 6.1 % (4.4-11.3); NEUTROPHILS # (AUTO) 9.4 (2.1-6.9); NEUTROPHILS % 84.7 % (38.7-80.0); PLATELET COUNT 220 x10e3/uL (140-360); RED BLOOD COUNT 3.08 x10e6/uL (4.3-5.7); RED CELL DISTRIBUTION WIDTH 14.1 % (11.7-14.4)
[2019-05-21 05:28] LABS: ANION GAP 11.3 mmol/L (8-16); BLOOD UREA NITROGEN 36 mg/dL (7-26); BUN/CREATININE RATIO 33 (6-25); CALCIUM 7.8 mg/dL (8.4-10.2); CARBON DIOXIDE 22 mmol/L (22-29); CHLORIDE 100 mmol/L (98-107); CREATININE, SERUM 1.09 mg/dL (0.72-1.25); EST GLOMERULAR FILTRATION RATE > 60 ML/MIN (60-); GLUCOSE 191 mg/dL (74-118); MAGNESIUM 1.4 MG/DL (1.3-2.1); POTASSIUM 3.3 mmol/L (3.5-5.1); SODIUM 130 mmol/L (136-145)
[2019-05-21] MEDS: METOPROLOL TARTRATE 25 MG TAB PO SCH ×4 (05:39→23:53)
[2019-05-21] MEDS ORDERED: POTASSIUM CHLORIDE 20 MEQ TAB CR PO ONE (07:00)
[2019-05-21] MEDS ORDERED: POTASSIUM CHLORIDE 20 MEQ TAB CR PO STA (07:06)
[2019-05-21] MEDS: ASCORBIC ACID 500 MG TAB PO SCH ×2 (08:38→17:09)
[2019-05-21] MEDS: ENOXAPARIN SODIUM INJ 100 MG/ML SYR SC SCH ×2 (08:38→22:00)
[2019-05-21] MEDS: POTASSIUM CHLORIDE 20 MEQ TAB CR PO SCH (08:38)
[2019-05-21] MEDS: OYST-CAL-D 500MG TABLET PO SCH ×2 (08:38→17:09)
[2019-05-21] MEDS: MAGNESIUM OXIDE 400 MG TAB PO SCH ×2 (08:38→17:09)
[2019-05-21] MEDS: ZINC SULFATE 220 MG CAP PO SCH ×2 (08:38→17:09)
[2019-05-21] MEDS: MULTIVITAMINS/MINERALS TAB PO SCH (08:38)
[2019-05-21] MEDS: FAMOTIDINE 20 MG TAB PO SCH ×2 (08:38→15:18)
[2019-05-21] MEDS: INSULIN LISPRO 100 UNIT/1 ML 3ML VIAL SQ SCH ×4 (08:39→22:09)
[2019-05-21] MEDS ORDERED: FUROSEMIDE INJ 10 MG/ML 4 ML VIAL IV SCH (09:00)
--- NOTE | 2019-05-21 13:05 | Diagnostic Imaging Report ---
EXAMINATION: CHEST XRAY LINE PLACEMENT INDICATION: Status post PICC. COMPARISON: None FINDINGS: TUBES and LINES: Right arm PICC terminates at the expected location of the lower SVC. LUNGS: Low lung volumes which decreases sensitivity and specificity for pathology. Mild perihilar and interstitial opacities. Mild patchy bibasilar opacities. PLEURA: No pleural effusion or pneumothorax. HEART AND MEDIASTINUM: The cardiomediastinal silhouette is mildly enlarged. BONES AND SOFT TISSUES: No acute osseous abnormality. UPPER ABDOMEN: No free air under the diaphragm. IMPRESSION: Right arm PICC terminates at the expected location of the lower SVC. No evidence of pneumothorax. Next Low lung volumes with multifocal patchy opacities, which may represent pulmonary edema, atelectasis, or pneumonia in the appropriate clinical setting. Suggest follow-up chest radiograph to assess for resolution. Signed by: Dr. Madeleine Patel MD on 05/21/2019 1:01 PM
--- NOTE | 2019-05-21 13:44 | Progress Note ---
DATE: SUBJECTIVE: The patient has no new complaints. He received potassium this morning. He is still in atrial fibrillation. PHYSICAL EXAMINATION: VITAL SIGNS: The blood pressure is 122/90 and the saturation is 97%. The pulse is 130 to 140 and is irregularly irregular. HEENT: Shows no facial swelling or erythema. CARDIAC: Reveals a regular rate and rhythm with a normal S1 and S2. There are no murmurs or rubs. LUNGS: Auscultation of lungs reveals clear breath sounds bilaterally. ABDOMEN: Soft, nontender. There is no rebound or guarding. EXTREMITIES: Show no leg edema or calf tenderness. There is a partial amputation of the right foot as well as wounds with some purulent drainage. IMPRESSION: 1. Mild osteomyelitis with secondary sepsis present on admission. 2. Atrial fibrillation with poor ventricular control. 3. Acute on chronic systolic heart failure. 4. Diabetes. 5. Hyponatremia. 6. Obesity. PLAN: 1. Continue current antibiotics. 2. Continue metoprolol and digoxin. 3. Monitor blood sugars. Brian Uribe MD [facility]/MODL /[id number]
[2019-05-21] MEDS: VANCOMYCIN 1GM/NS 250 ML 250 ML IV SCH ×2 (14:26→21:50)
[2019-05-21] MEDS ORDERED: SODIUM CHLORIDE 0.9% 250ML 250 ML ONE (14:50)
--- NOTE | 2019-05-21 15:39 | Consultation ---
DATE OF CONSULTATION: 05/21/2019 Podiatric Surgery Consultation HISTORY OF PRESENT ILLNESS: The patient is a well patient known to my practice. He is very noncompliant. HE Comes to my practice about every two months. He misses all his appointments. I have not seen him since the beginning of March. He says that he has not been able to go to my office and has not been able to follow up, but last week developed some malodor and he started soaking his foot in warm water with Epsom salt, then he started developing some blisters to b/l Lower extremities. He came in here because he was worried that the infection was getting worse. He came into the emergency room and he was admitted. PAST MEDICAL HISTORY: Diabetes mellitus, PVD, history of TMA, history of noncompliance. MEDICATIONS: Please refer to MAR. Of interest to this consult are clindamycin and Levaquin. ALLERGIES: PENICILLIN. REVIEW OF SYSTEMS: Noncontributory except for ulcer to the left foot. PHYSICAL EXAMINATION: Lower extremity physical exam, pedal pulses are not palpable. Capillary filling time is delayed. He has a history of an amputation to TMA that is now healed. His whole foot is in varus secondary to Charcot. He walks on the lateral aspect of the ankle and also he developed the ulcer. The ulcer is down to the level of the fibula on right. There is malodor to the area of the most central aspect fibrous tissue about 50% distally has granular. The left has various areas of non blanching that are beginning to demarcate. White blood count is trending down. He is responding to IV antibiotics. He came in with 17.58. He is down to 11.03. He is pending blood cultures. There was no growth at 24 hours, but a Gram stain did show some gram-positive cocci, so it is continued to grow. IMAGING: The MRI is positive for osteomyelitis to the fibula. He is pending vascular studies. ASSESSMENT: 1. Diabetic foot ulcer grade 3, right. 2. Diabetes with neuropathy and peripheral vascular disease. 3. History of noncompliance. 4. Osteomyelitis. PLAN: At this point, he is currently on IV antibiotic. His white blood count is trending down. He is probably going to need a debridement. I am going await vascular studies. If he needs to be revascularized and he is a candidate for it, I will debride after vascular results. In the mean while mechanical debridement with Betadine wet-to-dry to right. I will wait for demarcation to left. I discussed compliance with him. I discussed that it is empirical that he follows up, that he takes medications as ordered. I have answered all questions. I will continue to follow. Thank you for letting me participate in the care of this patient. IRA Xiao/CE /[id number]
[2019-05-21] MEDS: FUROSEMIDE INJ 10 MG/ML 4 ML VIAL IV SCH (18:01)
--- NOTE | 2019-05-21 19:50 | Progress Note ---
DATE: 05/21/2019 Cardiology Progress Note SUBJECTIVE: The patient denies chest pain or shortness of breath. OBJECTIVE: VITAL SIGNS: Temperature 99 degrees, pulse 123, respiratory rate 22, blood pressure 131/79, oxygen saturation 100% on room air. GENERAL: Awake, alert, in no acute distress. LUNGS: Clear to auscultation bilaterally. No wheezes or crackles. CARDIOVASCULAR: Tachycardic, irregular. No murmur normal S1, S2. ABDOMEN: Soft, nontender. EXTREMITIES: 1+ pitting edema. CARDIAC MEDICATIONS: Metoprolol tartrate 25 mg p.o. q.6 hours, enoxaparin 100 mg subcu q.12 hours. LABORATORY DATA: WBC 11.03, hemoglobin 9, hematocrit 26.7, platelets 220. Sodium 133, potassium 3.3, chloride 100, CO2 of 22, BUN 36, creatinine 1.09. BNP 762. IMPRESSION: 1. Atrial flutter with rapid ventricular response. 2. Osteomyelitis. 3. Left lower extremity cellulitis. 4. Newly diagnosed systolic heart failure. 5. Hyponatremia. 6. Diabetes mellitus. 7. Obesity. RECOMMENDATIONS: Increase metoprolol as the patient's rate is not well controlled. Continue patient on telemetry once heart rate is controlled and infection has been treated, patient will need ischemic evaluation. In the meantime, continue Lovenox for CVA prophylaxis. Increase diuretics. Antibiotics per Infectious Disease. Wound care per Podiatry. No evidence of hemodynamic significant stenosis on bilateral lower extremity arterial Doppler and no evidence of venous thrombosis on venous Doppler. Thank you for this consult. We will continue to follow. Nieves Sosa MD [facility]/MODL /[id number]
[2019-05-21] MEDS ORDERED: METOPROLOL TARTRATE INJ 1 MG/ML VIAL IV ONE (20:15)
--- NOTE | 2019-05-21 20:15 | NUR ---
Irregular HR ranging 120's to 140's. Dr Sosa notified. One time metoprolol IVP ordered.
[2019-05-21] MEDS: LEVOFLOXACIN 500MG/D5W 100ML 100 ML IV SCH (20:26)
[2019-05-21] MEDS: ONDANSETRON HCL INJ 2MG/ML 2ML 2 MG/ML VIAL IV PRN (21:51)
[2019-05-22] VITALS (24 sets, daily range): BP systolic 86–140; BP diastolic 65–96
[2019-05-22 03:40] LABS: BASOPHILS % 0.3 % (0.0-1.0); EOSINOPHILS % 0.3 % (0.0-6.0); HEMATOCRIT 29.2 % (38.2-49.6); HEMOGLOBIN 9.8 g/dL (14.0-18.0); LYMPHOCYTES # (AUTO) 0.9 (1.0-3.2); LYMPHOCYTES % 7.4 % (18.0-39.1); MEAN CORPUSCULAR HGB CONC 33.6 g/dL (31-35); MEAN CORPUSCULAR VOLUME 86.4 fL (81-99); MONOCYTES # (AUTO) 0.8 (0.2-0.8); MONOCYTES % 6.6 % (4.4-11.3); NEUTROPHILS # (AUTO) 10.3 (2.1-6.9); NEUTROPHILS % 84.2 % (38.7-80.0); PLATELET COUNT 253 x10e3/uL (140-360); RED BLOOD COUNT 3.38 x10e6/uL (4.3-5.7); RED CELL DISTRIBUTION WIDTH 14.1 % (11.7-14.4)
[2019-05-22 03:58] LABS: ANION GAP 11.7 mmol/L (8-16); BLOOD UREA NITROGEN 33 mg/dL (7-26); BUN/CREATININE RATIO 38 (6-25); CARBON DIOXIDE 23 mmol/L (22-29); CHLORIDE 100 mmol/L (98-107); CREATININE, SERUM 0.87 mg/dL (0.72-1.25); EST GLOMERULAR FILTRATION RATE > 60 ML/MIN (60-); GLUCOSE 175 mg/dL (74-118); MAGNESIUM 1.4 MG/DL (1.3-2.1); POTASSIUM 3.7 mmol/L (3.5-5.1); SODIUM 131 mmol/L (136-145)
[2019-05-22] MEDS: ONDANSETRON HCL INJ 2MG/ML 2ML 2 MG/ML VIAL IV PRN (04:06)
[2019-05-22] MEDS: METOPROLOL TARTRATE 25 MG TAB PO SCH (05:01)
--- NOTE | 2019-05-22 06:35 | NUR ---
Irregular HR from [address] Sosa notified. New orders received.
[2019-05-22] MEDS ORDERED: METOPROLOL TARTRATE 25 MG TAB PO ONE (07:15)
[2019-05-22] MEDS ORDERED: SODIUM CHLORIDE 0.9% 50ML 50 ML ONE (08:48)
[2019-05-22] MEDS ORDERED: IOPAMIDOL 370 MG/ML 200 ML INFUS..BTL INJ ONE (08:48)
[2019-05-22] MEDS: FAMOTIDINE 20 MG TAB PO SCH ×2 (09:21→15:55)
[2019-05-22] MEDS: VANCOMYCIN 1GM/NS 250 ML 250 ML IV SCH (09:21)
[2019-05-22] MEDS: FUROSEMIDE INJ 10 MG/ML 4 ML VIAL IV SCH ×3 (09:21→22:01)
[2019-05-22] MEDS: MAGNESIUM OXIDE 400 MG TAB PO SCH ×2 (09:22→16:41)
[2019-05-22] MEDS: POTASSIUM CHLORIDE 20 MEQ TAB CR PO SCH (09:22)
[2019-05-22] MEDS: ASCORBIC ACID 500 MG TAB PO SCH ×2 (09:22→16:41)
[2019-05-22] MEDS: MULTIVITAMINS/MINERALS TAB PO SCH (09:22)
[2019-05-22] MEDS: OYST-CAL-D 500MG TABLET PO SCH ×2 (09:22→16:41)
[2019-05-22] MEDS: ENOXAPARIN SODIUM INJ 100 MG/ML SYR SC SCH ×2 (09:23→22:01)
[2019-05-22] MEDS: ZINC SULFATE 220 MG CAP PO SCH ×2 (09:26→16:41)
[2019-05-22] MEDS: INSULIN LISPRO 100 UNIT/1 ML 3ML VIAL SQ SCH ×4 (09:27→22:08)
[2019-05-22] MEDS ORDERED: METOPROLOL TARTRATE INJ 1 MG/ML VIAL IV STA (09:51)
[2019-05-22] MEDS ORDERED: METOPROLOL TARTRATE INJ 1 MG/ML VIAL ONE (09:53)
--- NOTE | 2019-05-22 10:16 | Diagnostic Imaging Report ---
EXAMINATION: CT of the abdomen and pelvis with contrast. TECHNIQUE: Spiral CT images of the abdomen and pelvis were performed from the lung bases to the lesser trochanters after the intravenous administration of 100 cc Isovue-370. Coronal and sagittal reformatted images were obtained. COMPARISON: None. CLINICAL HISTORY:Nausea, vomiting, diarrhea DISCUSSION: ABDOMEN/PELVIS: LOWER THORAX:Subsegmental atelectasis in the dependent lower lobes. Trace bilateral pleural effusions. HEPATOBILIARY: No focal hepatic lesions. Subtle nodularity of the hepatic contour with relative hypertrophy of the left lobe suggestive of cirrhosis. No intra-or extrahepatic biliary ductal dilation. Radiopaque sludge or small radiopaque calculi in the dependent gallbladder. No pericholecystic inflammation. SPLEEN: The spleen is enlarged, measuring 14 cm in craniocaudal span. PANCREAS: No focal masses or ductal dilatation. ADRENALS: No adrenal nodules. KIDNEYS/URETERS: Punctate nonobstructing calculus in the interpolar left kidney. No hydronephrosis or focal solid mass lesion. Small exophytic cyst measuring 1.6 cm projecting medially from the left kidney. PELVIC ORGANS/BLADDER: The urinary bladder is unremarkable. Coarse prostatic calcifications. Seminal vesicles unremarkable. PERITONEUM/RETROPERITONEUM: Trace perihepatic ascites, average internal attenuation 5-10 Hounsfield units, with tracking along the paracolic gutters. LYMPH NODES: Mildly prominent bilateral inguinal lymph nodes have normal morphology. No pelvic sidewall, retroperitoneal, or mesenteric lymphadenopathy. VESSELS: Abdominal aorta, major branch vessels, and iliac arterial systems are patent with mild atherosclerotic calcification. Right hepatic artery is replaced to the superior mesenteric artery. Portal vein, splenic vein, and central superior mesenteric vein are patent. GI TRACT: The large bowel shows no distention or wall thickening. Gas and fecal material are noted throughout. Postsurgical changes in the cecum/ascending colon. There is moderate concentric wall thickening and mucosal enhancement involving the second through fourth portions of the duodenum with adjacent inflammatory stranding extending along the right anterior perirenal space exemplified on series 2 image 49. The stomach appears unremarkable. Distally, the small bowel shows no distention or wall thickening. BONES AND SOFT TISSUE: No osseous destructive lesions. Degenerative changes of the sacroiliac joints. Multilevel degenerative disc disease of the lumbar spine. Small foci of subcutaneous gas in the right lower quadrant abdominal wall fat, related to insulin or other subcutaneous medication administration. Multilobulated broad-based midline ventral hernia contains omental fat without inflammatory change. Otherwise no focal soft tissue abnormalities. IMPRESSION: Findings compatible with inflammatory duodenitis or peptic ulcer disease involving the duodenum. No perforation or drainable fluid collection. Upper endoscopy may be of benefit for further evaluation. Suspected hepatic cirrhosis with portal hypertension evidenced by ascites and splenomegaly. Correlate for chronic hepatitis or alcohol abuse. Cholelithiasis versus gallbladder sludge. No pericholecystic inflammation. Nonobstructing left renal calculus. Atherosclerotic vascular disease. Signed by: Dr. Murphy Vasquez M.D. on 05/22/2019 10:13 AM
[2019-05-22 10:49] LABS: OCCULT BLOOD STOOL POSITIVE (NEGATIVE)
[2019-05-22] MEDS: METOPROLOL TARTRATE 50 MG TAB PO SCH ×2 (11:53→18:50)
--- NOTE | 2019-05-22 11:55 | Progress Note ---
DATE: SUBJECTIVE: The patient has had nausea and vomiting that has not been relieved with antiemetics. The patient also had an echo that showed decreased ejection fraction of 25%. He is on Lasix and fluid restrictions. PHYSICAL EXAMINATION: VITAL SIGNS: Blood pressure is 140/86 and the saturation is 97%. Pulse is 120 to 130. CARDIAC: Irregularly irregular rhythm. Cardiac exam reveals crackles at the bases. LUNGS: There is no wheezing. ABDOMEN: Soft and nontender. There is no rebound or guarding. EXTREMITIES: Shows a partial amputation of the right foot. There is some drainage. LABORATORY DATA: White blood cell count is 12.2 and hemoglobin is 9.8, platelet count is 253. BUN to creatinine ratio is 33 to 0.9 and the sodium is 131. BNP is 793. IMPRESSION: 1. Osteomyelitis with sepsis, present on admission. 2. Acute systolic congestive heart failure. 3. Diabetes out of control. 4. Atrial fibrillation. 5. Persistent nausea and vomiting. PLAN: 1. Continue current antibiotics. 2. Continue diuretics. 3. Continue treatment for atrial fibrillation. 4. Consider GI evaluation for possible gastroparesis. Brian Uribe MD [facility]/CE /[id number]
[2019-05-22 12:11] LABS: C DIFFICILE TOXIN A&B AMP PROB NEGATIVE (NEGATIVE)
--- NOTE | 2019-05-22 13:26 | Progress Note ---
DATE: 05/22/2019 Cardiology Progress Note. SUBJECTIVE: The patient denies chest pain or shortness of breath. However, he does report abdominal discomfort. OBJECTIVE: VITAL SIGNS: Temperature 98 degrees, pulse 125, respiratory rate 24, blood pressure 126/83, oxygen saturation 97% on room air/ GENERAL: Awake, alert, in no acute distress. LUNGS: Clear to auscultation bilaterally. No wheezes or crackles. CARDIOVASCULAR: Tachycardic, irregular. No murmur. Normal S1, S2. ABDOMEN: Soft, nontender. EXTREMITIES: 1+ pitting edema. Dressing present on the right foot. This fluid-filled blisters and erythema noted on the left foot. CARDIAC MEDICATIONS: Metoprolol tartrate 50 mg p.o. q.6 hours, enoxaparin 100 mg subcu q.12 hours, furosemide 40 mg IV b.i.d. LABORATORY DATA: WBC 12.19, hemoglobin 9.8, hematocrit 29.2, platelets 253. Sodium 131, potassium 3.7, chloride 100, CO2 23, BUN 33, creatinine 0.87. BNP 793. Telemetry atrial flutter with rapid ventricular response. IMPRESSION: 1. Atrial flutter with rapid ventricular response. 2. Newly diagnosed severe systolic heart failure. 3. Osteomyelitis. 4. Left lower extremity cellulitis. 5. Hyponatremia. 6. Diabetes mellitus. 7. Obesity next. RECOMMENDATIONS: Metoprolol has been further increased as rate remains poorly controlled. Continue to monitor patient on telemetry. Once the patient's heart rate is controlled and infection has been treated, the patient will need ischemic evaluation. In the meantime, continue Lovenox for CVA prophylaxis. Increase diuretics as creatinine has been stable. Antibiotics per Infectious Disease. Wound care per Podiatry, monitor replete electrolytes. Thank you for this consult. We will continue to follow. Nieves Sosa MD [facility]/MODL /[id number]
[2019-05-22] MEDS: LEVOFLOXACIN 500MG/D5W 100ML 100 ML IV SCH (20:41)
--- NOTE | 2019-05-22 21:00 | NUR ---
Called and spoke with Dr Butler. Reported pt with more skin changes after the vancomycin dose today. Have received order to dc the vancomycin, start a zyvoxx, and do not report as a medication allergery at this time.
--- NOTE | 2019-05-22 21:00 | NUR ---
Called and spoke with [employer] CLERK for Dr Wilkes. Reported worsening of the skin spots after vancomycin given today, advised to call ID. Reported pt remains with some vomiting and diarrhea. Relayed have received results of CT with multiple possible issues. Order received for Jose and she will see in the am.
[2019-05-22] MEDS: LINEZOLID 600 MG/D5W 300ML 300 ML IV SCH (22:01)
--- NOTE | 2019-05-22 23:15 | NUR ---
Report received from CLAUDIA Leiva. Pt resting at this time and has no complaints.
[2019-05-22] MEDS ORDERED: CHOLESTYRAMINE 4 GM PACKET PO PRN (23:30)
[2019-05-23] MEDS: METOPROLOL TARTRATE 50 MG TAB PO SCH ×4 (02:02→17:33)
[2019-05-23 03:00] VITALS: BP 136/87
[2019-05-23 05:17] LABS: BASOPHILS % 0.3 % (0.0-1.0); EOSINOPHILS % 0.4 % (0.0-6.0); HEMOGLOBIN 10.6 g/dL (14.0-18.0); LYMPHOCYTES # (AUTO) 0.9 (1.0-3.2); LYMPHOCYTES % 8.3 % (18.0-39.1); MEAN CORPUSCULAR HGB CONC 33.1 g/dL (31-35); MEAN CORPUSCULAR VOLUME 87.4 fL (81-99); MONOCYTES # (AUTO) 0.6 (0.2-0.8); MONOCYTES % 5.7 % (4.4-11.3); NEUTROPHILS # (AUTO) 8.6 (2.1-6.9); NEUTROPHILS % 84.1 % (38.7-80.0); PLATELET COUNT 256 x10e3/uL (140-360); RED BLOOD COUNT 3.66 x10e6/uL (4.3-5.7); RED CELL DISTRIBUTION WIDTH 14.5 % (11.7-14.4)
[2019-05-23 05:35] LABS: ANION GAP 13.6 mmol/L (8-16); BLOOD UREA NITROGEN 41 mg/dL (7-26); BUN/CREATININE RATIO 41 (6-25); CALCIUM 8.1 mg/dL (8.4-10.2); CARBON DIOXIDE 23 mmol/L (22-29); CHLORIDE 101 mmol/L (98-107); CREATININE, SERUM 1.01 mg/dL (0.72-1.25); EST GLOMERULAR FILTRATION RATE > 60 ML/MIN (60-); GLUCOSE 242 mg/dL (74-118); POTASSIUM 3.6 mmol/L (3.5-5.1); SODIUM 134 mmol/L (136-145)
--- NOTE | 2019-05-23 05:37 | NUR ---
Consult called to Dr. Ana Monroy, no return call yet.
[2019-05-23] MEDS ORDERED: ALTEPLASE RECOMBINANT 2 MG/2 ML VIAL IV PRN (05:45)
[2019-05-23] MEDS: HYDROCODONE/APAP 5MG-325MG TAB PO PRN ×2 (05:54→06:14)
[2019-05-23 06:02] LABS: FERRITIN 657.4 ng/mL (21.81-274.66)
[2019-05-23 06:28] LABS: FOLATE 8.6 ng/mL (7.0-15.4)
[2019-05-23 07:03] VITALS: BP 135/87
[2019-05-23 07:04] VITALS: BP 135/87
[2019-05-23] MEDS: INSULIN LISPRO 100 UNIT/1 ML 3ML VIAL SQ SCH ×4 (07:24→20:33)
[2019-05-23] MEDS: MAGNESIUM OXIDE 400 MG TAB PO SCH ×2 (07:38→17:33)
[2019-05-23] MEDS: ENOXAPARIN SODIUM INJ 100 MG/ML SYR SC SCH ×2 (07:38→20:33)
[2019-05-23] MEDS: ASCORBIC ACID 500 MG TAB PO SCH ×2 (07:38→17:33)
[2019-05-23] MEDS: OYST-CAL-D 500MG TABLET PO SCH ×2 (07:38→17:33)
[2019-05-23] MEDS: MULTIVITAMINS/MINERALS TAB PO SCH (07:38)
[2019-05-23] MEDS: ZINC SULFATE 220 MG CAP PO SCH ×2 (07:38→17:33)
[2019-05-23] MEDS: FAMOTIDINE 20 MG TAB PO SCH ×2 (07:38→17:33)
[2019-05-23] MEDS: POTASSIUM CHLORIDE 20 MEQ TAB CR PO SCH (07:38)
[2019-05-23] MEDS: FUROSEMIDE INJ 10 MG/ML 4 ML VIAL IV SCH ×3 (07:38→20:33)
[2019-05-23] MEDS: PANTOPRAZOLE 40 MG 10ML VIAL IV SCH (09:29)
[2019-05-23] MEDS: LINEZOLID 600 MG/D5W 300ML 300 ML IV SCH ×2 (09:29→21:26)
[2019-05-23 09:35] LABS: INR 1.37; PROTHROMBIN TIME 17.5 seconds (11.9-14.5)
[2019-05-23 09:36] LABS: PARTIAL THROMBOPLASTIN TIME 41.2 seconds (23.8-35.5)
--- NOTE | 2019-05-23 10:17 | Progress Note ---
DATE: 05/23/2019 SUBJECTIVE: The patient was seen at bedside. Erythema and edema have not localized to the ulcer. The bone is exposed. On left the area is demarcating. Pedal pulses are diminished. Capillary filling time is delayed. His vascular studies show no occlusions with adequate flow to heal the wound. He is currently on IV antibiotics per Infectious Disease. ASSESSMENT: 1. Ulcer grade 3, right ankle and right foot. 2. Diabetes with neuropathy and peripheral vascular disease. PLAN: At this point, the plan is to take him for a debridement on 05/26/2019, which is Sunday. He is on-call to the OR at 12:00 p.m. He is going to be n.p.o. after midnight that night. I discussed with him treatment. After he is debrided, he is going to go possibly to LTAC for long-term IV antibiotic and hyperbaric evaluation. Continue wound care. Continue IV antibiotic and he is scheduled for surgery on 05/26/2019 at 12:00. IRA Xiao/CE /[id number]
--- NOTE | 2019-05-23 10:57 | Progress Note ---
DATE: 05/23/2019 SUBJECTIVE: The patient has some more nausea and vomiting. He denies any epigastric pain. He did have some diarrhea with mucus. A CT scan of the abdomen and pelvis showed inflammatory duodenitis and peptic ulcer disease involving the duodenum as well as possible cirrhosis and cholelithiasis. PHYSICAL EXAMINATION: VITAL SIGNS: The patient is afebrile. The blood pressure is 135/87 and saturation is 97% on 3 L. HEENT: Shows no facial swelling or erythema. LYMPHATIC: Shows no submandibular, cervical, or supraclavicular adenopathy. CARDIAC: Reveals regular rate and rhythm with a normal S1 and S2. LUNGS: Auscultation of lungs reveals decreased breath sounds at the bases. ABDOMEN: Soft and nontender. There is no rebound or guarding. EXTREMITIES: There is no leg edema. There is a partial amputation of the right foot as well as a wound with some drainage. IMPRESSION: 1. Acute peptic ulcer disease with nausea and vomiting. 2. Liver disease. 3. Osteomyelitis with sepsis, present on admission. 4. Atrial fibrillation. 5. Diabetes. PLAN: 1. Begin Protonix in addition to Pepcid. 2. The patient will be seen by GI. 3. Continue antibiotics. 4. Continue current treatment for atrial fibrillation. Brian Uribe MD LM/MODL /[id number]
--- NOTE | 2019-05-23 12:01 | NUR ---
EDUCATED ABOUT IMM, SIGNED, FILED IN CHART, WITH COPY LEFT WITH FAMILY AT BEDSIDE.
[2019-05-23 12:04] VITALS: BP 119/78
--- NOTE | 2019-05-23 15:55 | Progress Note ---
DATE: SUBJECTIVE: Mr. Marcos is doing better. He left the ICU. No new complaint. His rash is getting progressively worse on the skin. PHYSICAL EXAMINATION: GENERAL: He is currently alert, oriented, does not seem to be in acute distress, obese. VITAL SIGNS: Stable, afebrile. HEENT: Normocephalic. NECK: Supple. CHEST: Clear. HEART: S1, S2. ABDOMEN: Obese. EXTREMITIES: The left foot is dislocated. There are gangrenous changes noted in the ankle. The right foot has an ulcer with also dislocation secondary to Charcot joint. IMPRESSION: 1. Sepsis on admission, group B strep. Recheck of blood cultures. 2. Vasculitis. Drug reaction, probably not so sure if he took a vancomycin. Now, he is on Zyvox and Levaquin. Drug reaction originally thought was due to cefepime. I was contacted yesterday that it is vancomycin now, so we changed to Zyvox and Levaquin. 3. Gangrene of the right ankle with dislocation and gangrene of the left ankle with dislocation. He is telling me that these are old for two year and half, he does not want to do amputation. He knows that he can because of all the complications from the antibiotic and infection. 4. Diabetes mellitus. 5. Liver disease. 6. Atrial fibrillation. 7. Atrial flutter. 8. Severe systolic congestive heart failure. 9. Prognosis is extremely guarded in this patient. All risks and complications have been discussed with the patient, family present. MD BILLIE Warner/CE /[id number]
[2019-05-23 17:13] VITALS: BP 120/81
--- NOTE | 2019-05-23 19:15 | NUR ---
patient received awake, alert, lying quietly in bed. vss. no c/o pain noted. pm assessment complete. patient instructed to call for assistance when needed.
--- NOTE | 2019-05-23 19:50 | Progress Note ---
DATE: 05/23/2019 Cardiology Progress Note SUBJECTIVE: The patient denies chest pain or shortness of breath. OBJECTIVE: VITAL SIGNS: Temperature 97.6 degrees, pulse 96, respiratory rate 20, blood pressure 119/78, and oxygen saturation 97% on room air. GENERAL: Awake, alert, in no acute distress. LUNGS: Clear to auscultation bilaterally. No wheezes or crackles. CARDIOVASCULAR: Normal rate, regular rhythm. No murmur. Normal S1, S2. ABDOMEN: Soft, nontender. EXTREMITIES: 1+ pitting edema. Dressing present on bilateral feet. CARDIAC MEDICATIONS: Metoprolol tartrate 50 mg p.o. q.6 hours, Lasix 40 mg IV t.i.d., enoxaparin 100 mg subcu q.12 hours. LABORATORY DATA: WBC 10.25, hemoglobin 10.6, hematocrit 32, platelets 256. Sodium 134, potassium 3.6, chloride 101, CO2 of 23, BUN 41, creatinine 1.01. TELEMETRY: Normal sinus rhythm with PACs. IMPRESSION: 1. Atrial flutter with rapid ventricular response, currently sinus rhythm. 2. Newly diagnosed severe systolic heart failure. 3. Osteomyelitis. 4. Left lower extremity cellulitis. 5. Hyponatremia. 6. Diabetes mellitus. 7. Obesity. RECOMMENDATIONS: The patient is now in normal sinus rhythm. Continue metoprolol. Consolidate to metoprolol succinate upon discharge. Continue Lovenox for CVA prophylaxis. I will monitor the patient closely on telemetry. Once the patient's infection is treated, he will need ischemic evaluation given his newly diagnosed systolic heart failure. If creatinine remains stable, we will plan to start DANNY inhibitor. Continue diuretics. Monitor creatinine closely. Replete electrolytes. Antibiotics per Infectious Disease. Wound care per Podiatry. Thank you for this consult. We will continue to follow. Nieves Sosa MD [facility]/MODL /[id number]
[2019-05-23 20:00] VITALS: BP 115/80
[2019-05-23] MEDS: LEVOFLOXACIN 500MG/D5W 100ML 100 ML IV SCH (20:00)
[2019-05-24 00:23] VITALS: BP 111/90
[2019-05-24 04:00] VITALS: BP 104/66
[2019-05-24] MEDS ORDERED: BISACODYL 5 MG TAB EC PO SCH (04:00)
[2019-05-24] MEDS ORDERED: BISACODYL 5 MG TAB EC PO ONE ×2 (04:00→04:22)
--- NOTE | 2019-05-24 04:30 | NUR ---
colonoscopy with prep ordered then d/c'd per dr. carrillo this am. patient to have egd today. patient made aware of this. consent obtained for egd and placed on patients chart at this time.
--- NOTE | 2019-05-24 05:00 | NUR ---
bath given and dressings to ble's changed per orders at this time.
[2019-05-24 05:19] LABS: BASOPHILS % 0.3 % (0.0-1.0); EOSINOPHILS # (AUTO) 0.2 (0.0-0.4); EOSINOPHILS % 1.6 % (0.0-6.0); HEMATOCRIT 29.9 % (38.2-49.6); HEMOGLOBIN 9.7 g/dL (14.0-18.0); LYMPHOCYTES % 8.8 % (18.0-39.1); MEAN CORPUSCULAR HEMOGLOBIN 28.5 pg (28-32); MEAN CORPUSCULAR HGB CONC 32.4 g/dL (31-35); MEAN CORPUSCULAR VOLUME 87.9 fL (81-99); MONOCYTES # (AUTO) 0.7 (0.2-0.8); MONOCYTES % 5.9 % (4.4-11.3); NEUTROPHILS # (AUTO) 9.5 (2.1-6.9); NEUTROPHILS % 82.2 % (38.7-80.0); PLATELET COUNT 245 x10e3/uL (140-360); RED CELL DISTRIBUTION WIDTH 14.5 % (11.7-14.4)
[2019-05-24 05:41] LABS: BLOOD UREA NITROGEN 44 mg/dL (7-26); BUN/CREATININE RATIO 38 (6-25); CALCIUM 7.6 mg/dL (8.4-10.2); CARBON DIOXIDE 23 mmol/L (22-29); CHLORIDE 100 mmol/L (98-107); CREATININE, SERUM 1.17 mg/dL (0.72-1.25); EST GLOMERULAR FILTRATION RATE > 60 ML/MIN (60-); GLUCOSE 190 mg/dL (74-118); SODIUM 133 mmol/L (136-145)
[2019-05-24] MEDS: METOPROLOL TARTRATE 50 MG TAB PO SCH ×4 (05:42→17:59)
[2019-05-24] MEDS ORDERED: CITRATE OF MAGNESIA 300ML BOTTLE PO ONE ×2 (06:00→08:00)
[2019-05-24 06:24] LABS: FERRITIN 603.64 ng/mL (21.81-274.66)
[2019-05-24 07:30] VITALS: BP 124/78
[2019-05-24] MEDS: INSULIN LISPRO 100 UNIT/1 ML 3ML VIAL SQ SCH ×4 (07:30→21:00)
[2019-05-24] MEDS: FAMOTIDINE 20 MG TAB PO SCH ×2 (07:30→16:30)
[2019-05-24] MEDS: MULTIVITAMINS/MINERALS TAB PO SCH (08:13)
[2019-05-24] MEDS: OYST-CAL-D 500MG TABLET PO SCH ×2 (08:13→17:00)
[2019-05-24] MEDS: POTASSIUM CHLORIDE 20 MEQ TAB CR PO SCH (08:13)
[2019-05-24] MEDS: ASCORBIC ACID 500 MG TAB PO SCH ×2 (08:13→17:00)
[2019-05-24] MEDS: ZINC SULFATE 220 MG CAP PO SCH ×2 (08:13→17:00)
[2019-05-24] MEDS: MAGNESIUM OXIDE 400 MG TAB PO SCH ×2 (08:13→17:00)
[2019-05-24] MEDS: LINEZOLID 600 MG/D5W 300ML 300 ML IV SCH ×2 (09:30→21:10)
[2019-05-24] MEDS: PANTOPRAZOLE 40 MG 10ML VIAL IV SCH (09:30)
[2019-05-24] MEDS: FUROSEMIDE INJ 10 MG/ML 4 ML VIAL IV SCH ×3 (09:30→21:09)
[2019-05-24 12:59] VITALS: BP 118/72
--- NOTE | 2019-05-24 17:19 | Progress Note ---
DATE: 05/24/2019 Cardiology Progress Note SUBJECTIVE: The patient denies chest pain or shortness of breath. OBJECTIVE: VITAL SIGNS: Temperature 97.3 degrees, pulse 89, respiratory rate 18, blood pressure 124/78, and oxygen saturation 98% on room air. GENERAL: Awake, alert, in no acute distress. LUNGS: Clear to auscultation bilaterally. No wheezes or crackles. CARDIOVASCULAR: Normal rate. Regular rhythm. No murmur. Normal S1, S2. ABDOMEN: Soft, nontender. EXTREMITIES: 1+ pitting edema. Dressing present on bilateral lower extremities. CARDIAC MEDICATIONS: 1. Furosemide 40 mg IV t.i.d. 2. Metoprolol tartrate 50 mg p.o. q.6 hours. LABORATORY DATA: WBC 11.54, hemoglobin 9.7, hematocrit 29.9, platelets 245. Sodium 132, potassium 4, chloride 100, CO2 23, BUN 44, creatinine 1.17. BNP 331. TELEMETRY: Normal sinus rhythm. IMPRESSION: 1. Atrial flutter with rapid ventricular response, currently sinus rhythm. 2. Newly diagnosed severe systolic heart failure. 3. Osteomyelitis. 4. Left lower extremity cellulitis. 5. Hyponatremia. 6. Diabetes mellitus. 7. Obesity. RECOMMENDATIONS: The patient remains in normal sinus rhythm. Continue metoprolol. This should be transitioned to metoprolol succinate upon discharge. Continue Lovenox for CVA prophylaxis. Monitor the patient closely on telemetry. Once the patient's infection is treated, he will need ischemic evaluation given his newly diagnosed systolic heart failure. Monitor creatinine closely. If this remains stable with diuresis, we will start DANNY inhibitor. Continue diuretics at this time. Replete electrolytes. Antibiotics per Infectious Disease. Wound care per Podiatry. Thank you for this consult. We will continue to follow. Nieves Sosa MD [facility]/MODL /[id number]
--- NOTE | 2019-05-24 18:00 | NUR ---
all meds were held dt pt being NPO. pt off unit now for procedure
--- NOTE | 2019-05-24 18:19 | Progress Note ---
DATE: SUBJECTIVE: The patient was seen by Gastroenterology yesterday. There was a suspicion for gastritis and peptic ulcer disease. EGD was planned. PHYSICAL EXAMINATION: VITAL SIGNS: The patient is afebrile. The vital signs are stable. HEENT: Shows no facial swelling or erythema. CARDIAC: Regular rate and rhythm with normal S1 and S2. ABDOMEN: Soft, nontender. LUNGS: Auscultation of lungs reveals clear breath sounds bilaterally. EXTREMITIES: There is a partial amputation of the foot with some wound. IMPRESSION: 1. Peptic ulcer disease and duodenitis. 2. Possible cirrhosis and portal hypertension. 3. Osteomyelitis with sepsis, present on admission. 4. Diabetes. PLAN: 1. Proceed with an EGD and treatment for peptic ulcer disease. 2. Continue antibiotics. 3. Wound care. 4. Evaluation for liver disease. Brian Uribe MD [facility]/YOANL /[id number]
[2019-05-24] MEDS ORDERED: PANTOPRAZOLE 40 MG 10ML VIAL IV NR (18:45)
[2019-05-24] MEDS: LEVOFLOXACIN 500MG/D5W 100ML 100 ML IV SCH (19:37)
[2019-05-24] MEDS: PANTOPRAZOL 40MG/SOD CHL 0.9% 50 ML IV SCH (19:37)
[2019-05-24] MEDS: SUCRALFATE 1 GM TAB PO SCH (19:40)
[2019-05-24] MEDS ORDERED: SODIUM CHLORIDE 0.9% 1000ML 1,000 ML ONE (19:46)
--- NOTE | 2019-05-24 19:55 | Operative Report ---
DATE OF PROCEDURE: 05/24/2019 SURGEON: Justin Monroy MD PROCEDURE: Esophagogastroduodenoscopy with biopsies. INDICATION FOR PROCEDURE: Duodenitis/peptic ulcer disease on CT scan of the abdomen, guaiac-positive stools. MEDICATIONS: The patient was done under MAC, please see anesthesiologist's note. PROCEDURE IN DETAIL: With the patient in the supine position, a flexible fiberoptic Olympus gastroscope was introduced into the esophagus under direct visualization without any difficulty. There was some patchy erythema noted in distal esophagus. The scope was then advanced with ease into the stomach traversing a small sliding hiatal hernia. The mucosa overlying the antrum and the body revealed moderately severe gastritis with scattered ulcerations without active bleeding or stigmata of recent hemorrhage. Biopsies were obtained. The pylorus was of normal contour and shape, was intubated with ease, and the scope was advanced all the way to the second portion of the duodenum and down to the approximately the 3rd portion of the duodenum. The duodenal mucosa and the possible bulbar duodenum was severely ulcerated and friable ?ischemic. Multiple biopsies were obtained. The scope was then withdrawn back into the stomach and retroflexed and mucosa overlying the fundus and cardia appeared to be within normal limits. The scope was then straightened out and it was subsequently withdrawn. The patient tolerated procedure well. IMPRESSION: 1. Distal esophagitis, mild. 2. Small sliding hiatal hernia. 3. Gastritis, moderately severe, biopsied. Biopsies sent to stain for H pylori. 4. Duodenitis post bulbar severe ?ischemic, biopsies obtained. PLAN: Follow up histology. Will start on PPI drip. Add Carafate 1 g p.o. a.c. t.i.d. and at bedtime. Start full liquid diet. Justin Monroy MD [facility] [place]/MODL /[id number] cc: Yousif Wilkes MD
[2019-05-24 19:59] LABS: FOLATE 6.4 ng/mL (7.0-15.4)
--- NOTE | 2019-05-24 20:00 | Progress Note ---
DATE: SUBJECTIVE: Mr. Marcos is doing well. There are no new complaints. REVIEW OF SYSTEMS: HEENT: Negative. PULMONARY: Negative. CARDIAC: Negative. GENITOURINARY: Negative for the time. There is no chest pain. PHYSICAL EXAMINATION: GENERAL: He is currently alert, oriented, does not seem to be in acute distress. VITAL SIGNS: Stable. No fever. Temperature 97.3, heart rate 89, respiration 18, blood pressure 134/78. HEENT: Normocephalic. Not icteric. NECK: Supple. No JVD. No lymphadenopathy. No thyromegaly. CHEST: Clear bilateral. HEART: S1, S2. No S3, S4, or murmur. ABDOMEN: Soft. Bowel sounds present. No tenderness. EXTREMITIES: No edema. MEDICATIONS: Reviewed. IMPRESSION: 1. Atrial flutter with rapid ventricular response and sinus rhythm now, severe systolic congestive heart failure. Cardiology following. 2. Left lower extremity cellulitis. 3. Hyponatremia. 4. Diabetes mellitus. 5. Obesity. 6. Peptic ulcer disease. The patient had esophagogastroduodenoscopy. 7. Streptococcus agalactiae group B bacteremia, resolved on 05/19. Continue with antibiotic and the patient is currently on linezolid. 8. Allergies, drug rash, originally felt it was cephalosporin, then it could be vancomycin. PLAN: 1. Continue with antibiotic as ordered. 2. Continue with local care. 3. Vasculitis. We will observe, probably drug related. MD BILLIE Warner/CE /[id number]
[2019-05-24 20:37] VITALS: BP 131/77
[2019-05-24 23:10] VITALS: BP 146/84
[2019-05-25] VITALS (7 sets, daily range): BP systolic 104–142; BP diastolic 59–73
[2019-05-25] MEDS: PANTOPRAZOL 40MG/SOD CHL 0.9% 50 ML IV SCH ×5 (00:53→21:17)
[2019-05-25] MEDS: METOPROLOL TARTRATE 50 MG TAB PO SCH ×4 (01:02→18:19)
[2019-05-25] MEDS ORDERED: ACETAMINOPHEN 325 MG TAB PO PRN (05:15)
[2019-05-25] MEDS: INSULIN LISPRO 100 UNIT/1 ML 3ML VIAL SQ SCH ×4 (07:30→21:00)
[2019-05-25] MEDS: SUCRALFATE 1 GM TAB PO SCH ×4 (08:17→19:24)
[2019-05-25] MEDS: FUROSEMIDE INJ 10 MG/ML 4 ML VIAL IV SCH ×3 (08:17→19:23)
[2019-05-25] MEDS: FAMOTIDINE 20 MG TAB PO SCH ×2 (08:17→16:29)
[2019-05-25] MEDS: MULTIVITAMINS/MINERALS TAB PO SCH (08:18)
[2019-05-25] MEDS: OYST-CAL-D 500MG TABLET PO SCH ×2 (08:18→16:30)
[2019-05-25] MEDS: MAGNESIUM OXIDE 400 MG TAB PO SCH ×2 (08:18→16:30)
[2019-05-25] MEDS: POTASSIUM CHLORIDE 20 MEQ TAB CR PO SCH (08:18)
[2019-05-25] MEDS: ASCORBIC ACID 500 MG TAB PO SCH ×2 (08:18→16:30)
[2019-05-25] MEDS: ZINC SULFATE 220 MG CAP PO SCH ×2 (08:18→16:30)
[2019-05-25 08:32] LABS: BASOPHILS % 0.2 % (0.0-1.0); EOSINOPHILS # (AUTO) 0.2 (0.0-0.4); EOSINOPHILS % 1.7 % (0.0-6.0); HEMATOCRIT 26.8 % (38.2-49.6); HEMOGLOBIN 8.9 g/dL (14.0-18.0); LYMPHOCYTES # (AUTO) 1.1 (1.0-3.2); LYMPHOCYTES % 8.9 % (18.0-39.1); MEAN CORPUSCULAR HEMOGLOBIN 29.5 pg (28-32); MEAN CORPUSCULAR HGB CONC 33.2 g/dL (31-35); MEAN CORPUSCULAR VOLUME 88.7 fL (81-99); MONOCYTES # (AUTO) 0.7 (0.2-0.8); MONOCYTES % 5.7 % (4.4-11.3); NEUTROPHILS # (AUTO) 10.5 (2.1-6.9); NEUTROPHILS % 82.6 % (38.7-80.0); PLATELET COUNT 210 x10e3/uL (140-360); RED BLOOD COUNT 3.02 x10e6/uL (4.3-5.7); RED CELL DISTRIBUTION WIDTH 14.6 % (11.7-14.4)
[2019-05-25 08:52] LABS: ANION GAP 11.8 mmol/L (8-16); CALCIUM 7.5 mg/dL (8.4-10.2); CREATININE, SERUM 1.25 mg/dL (0.72-1.25); MAGNESIUM 1.7 MG/DL (1.3-2.1); POTASSIUM 3.8 mmol/L (3.5-5.1)
[2019-05-25] MEDS: LINEZOLID 600 MG/D5W 300ML 300 ML IV SCH ×2 (09:04→21:17)
[2019-05-25] MEDS ORDERED: CALCIUM GLUCONATE 10% INJ 4.65 MEQ in SODIUM CHLORIDE 0.9% 50ML 50 ML IV ONE (09:15)
--- NOTE | 2019-05-25 16:20 | Progress Note ---
DATE: 05/25/2019 Cardiology Progress Note SUBJECTIVE: The patient denies chest pain or shortness of breath. OBJECTIVE: VITAL SIGNS: Temperature 97.8 degrees, pulse 76, respiratory rate 18, blood pressure 104/65, and oxygen saturation 97% on room air. GENERAL: Awake and alert, in no acute distress. LUNGS: Clear to auscultation bilaterally. No wheezes or crackles. CARDIOVASCULAR: Normal rate. Regular rhythm. No murmur. Normal S1, S2. ABDOMEN: Soft, nontender. EXTREMITIES: 1+ pitting edema. Dressing present on bilateral lower extremities. Multiple small fluid-filled blisters are noted on bilateral hands. CARDIAC MEDICATIONS: 1. Metoprolol tartrate 50 mg p.o. q.6 hours. 2. Furosemide 40 mg IV t.i.d. LABS: WBC 12.64, hemoglobin 8.9, hematocrit 26.8, and platelets 210. Sodium 132, potassium 3.8, chloride 100, CO2 of 24, BUN 48, and creatinine 1.25. Telemetry, normal sinus rhythm. IMPRESSION: 1. Atrial flutter with rapid ventricular response, currently sinus rhythm. 2. Newly diagnosed severe systolic heart failure. 3. Osteomyelitis. 4. Left lower extremity cellulitis. 5. Hyponatremia. 6. Diabetes mellitus. 7. Obesity. RECOMMENDATIONS: The patient remains in normal sinus rhythm. Continue metoprolol. This will need to be transitioned to metoprolol succinate upon discharge. Lovenox is currently being held. The patient will need anticoagulation on discharge for CVA prophylaxis. In the meantime, we will monitor the patient closely on telemetry. Once the patient's infection is treated, he will need ischemic evaluation given his newly diagnosed systolic heart failure. Monitor creatinine closely. If creatinine is stable, we will plan to start DANNY inhibitor. Continue diuretics. Replete electrolytes. Antibiotics per Infectious Disease. Wound care per Podiatry. Thank you for this consult. We will continue to follow. Nieves Sosa MD ABS/MODL /[id number]
[2019-05-25] MEDS: LEVOFLOXACIN 500MG/D5W 100ML 100 ML IV SCH (19:23)
[2019-05-25] MEDS: METHYLPREDNISOLONE SOD SUCC 40 MG/ML VIAL 1ML IV SCH (19:24)
--- NOTE | 2019-05-25 21:26 | Progress Note ---
DATE: SUBJECTIVE: Mr. Marcos is doing well. There is no complaint. His rash seems to be getting progressively worse, apparently his upper extremities and lower extremity. The patient has no complaints. REVIEW OF SYSTEMS: HEENT: Negative. PULMONARY: Negative. CARDIAC: Negative. : Negative. GI: Negative. PHYSICAL EXAMINATION: GENERAL: He is currently alert, oriented, does not seem to be in acute distress. VITAL SIGNS: Stable, currently afebrile. Temperature 97.4, heart rate 81, respiration 18, blood pressure 106/68. HEENT: Normocephalic, not icteric. NECK: Supple. No JVD. No lymphadenopathy. No thyromegaly. CHEST: Clear bilateral. HEART: S1, S2. No S3, S4, or murmur. ABDOMEN: Soft. Bowel sounds present. No tenderness. SKIN: He has vesicular lesions noted with purplish lesions, both upper extremity and on the feet. EXTREMITIES: His heel bilateral, the right heel does have some necrosis which seem to be dry. But the patient tells me he had this for more than a year. He does not want to do any amputation. In the left foot is an ulcer also noted. In the right foot there is an ulcer stage 3 on the ankle with erythema and some necrotic tissue changes. IMPRESSION: 1. Vasculitis secondary to drug reaction, getting worse. We will use steroid, Solu-Medrol 20 mg q.12h. 2. Ulcer on the right heel, I think osteomyelitis. He is going for debridement tomorrow. Recommend to obtain a bone biopsy. The patient does have osteomyelitis of the tip of the lateral malleolus. 3. Sepsis on admission with bacteremia resolved. 4. Peptic ulcer disease and duodenitis underwent EGD which showed distal esophagitis with sliding hiatal hernia with gastritis and duodenitis. 5. Biopsies pending. The patient, who has Streptococcus agalactiae group B bacteremia. We will recheck blood culture. 6. Allergies to cephalosporin, perhaps vancomycin. Currently on linezolid. Discussed with the patient. 7. Peripheral vascular disease. 8. Atrial flutter, congestive heart failure, diabetes mellitus, obesity, and neuropathy. We will follow. MD BILLIE Warner/CE /[id number]
[2019-05-26] VITALS (8 sets, daily range): BP systolic 107–119; BP diastolic 63–78
[2019-05-26] MEDS: METOPROLOL TARTRATE 50 MG TAB PO SCH ×4 (00:02→18:39)
[2019-05-26] MEDS: PANTOPRAZOL 40MG/SOD CHL 0.9% 50 ML IV SCH ×5 (02:10→21:43)
[2019-05-26 03:49] LABS: BASOPHILS % 0.1 % (0.0-1.0); HEMATOCRIT 26.7 % (38.2-49.6); HEMOGLOBIN 8.8 g/dL (14.0-18.0); LYMPHOCYTES # (AUTO) 0.6 (1.0-3.2); LYMPHOCYTES % 5.5 % (18.0-39.1); MEAN CORPUSCULAR HEMOGLOBIN 29.3 pg (28-32); MONOCYTES # (AUTO) 0.1 (0.2-0.8); MONOCYTES % 1.1 % (4.4-11.3); NEUTROPHILS # (AUTO) 9.4 (2.1-6.9); NEUTROPHILS % 92.4 % (38.7-80.0); PLATELET COUNT 178 x10e3/uL (140-360); RED CELL DISTRIBUTION WIDTH 14.4 % (11.7-14.4)
[2019-05-26 04:05] LABS: ANION GAP 12.5 mmol/L (8-16); BLOOD UREA NITROGEN 39 mg/dL (7-26); BUN/CREATININE RATIO 33 (6-25); CALCIUM 7.9 mg/dL (8.4-10.2); CARBON DIOXIDE 24 mmol/L (22-29); CHLORIDE 97 mmol/L (98-107); EST GLOMERULAR FILTRATION RATE > 60 ML/MIN (60-); GLUCOSE 294 mg/dL (74-118); MAGNESIUM 1.6 MG/DL (1.3-2.1); POTASSIUM 4.5 mmol/L (3.5-5.1); SODIUM 129 mmol/L (136-145)
--- NOTE | 2019-05-26 07:12 | NUR ---
Report given to oncoming nurse,walking round done.
[2019-05-26] MEDS: SUCRALFATE 1 GM TAB PO SCH ×4 (07:30→22:20)
[2019-05-26] MEDS: INSULIN LISPRO 100 UNIT/1 ML 3ML VIAL SQ SCH ×4 (07:30→21:41)
[2019-05-26] MEDS: FAMOTIDINE 20 MG TAB PO SCH ×3 (07:30→17:26)
[2019-05-26] MEDS: MAGNESIUM OXIDE 400 MG TAB PO SCH ×2 (09:00→17:23)
[2019-05-26] MEDS: ZINC SULFATE 220 MG CAP PO SCH ×2 (09:00→17:23)
[2019-05-26] MEDS: ASCORBIC ACID 500 MG TAB PO SCH ×2 (09:00→17:23)
[2019-05-26] MEDS: OYST-CAL-D 500MG TABLET PO SCH ×2 (09:00→17:23)
--- NOTE | 2019-05-26 09:37 | NUR ---
Called Dr. Nieves Galindo, to see if patient is safe to go surgery considering his ejection fraction, per Dr. Sosa patient has cardiovascular issues but he can go to surgery.
--- NOTE | 2019-05-26 09:38 | Progress Note ---
DATE: Pulmonary Critical Care Progress Note SUBJECTIVE: The patient feels better. He has no abdominal pain. There is no nausea or vomiting. PHYSICAL EXAMINATION: VITAL SIGNS: Blood pressure is 116/71, saturation is 100% on room air. LYMPHATIC: There is no adenopathy. CARDIAC: Reveals a regular rate and rhythm with normal S1, S2. There are no murmurs or rubs. LUNGS: Auscultation of lungs reveals clear breath sounds bilaterally. There is no wheezing. ABDOMEN: Soft and nontender. There is no rebound or guarding. EXTREMITIES: Shows a partial amputation in the right lower extremity. IMPRESSION: 1. Atrial flutter with rapid ventricular response that has improved. 2. [id number] systolic congestive heart failure. 3. Osteomyelitis and cellulitis of the right lower extremity with sepsis that were present on admission. 4. Diabetes mellitus. 5. Moderate obesity. 6. Peptic ulcer disease. PLAN: 1. Continue current treatment for a peptic ulcer disease. 2. Complete antibiotics. 3. Wound care. 4. Physical therapy. Brian Uribe MD [facility]/YOANL /[id number]
[2019-05-26] MEDS: FUROSEMIDE INJ 10 MG/ML 4 ML VIAL IV SCH ×3 (09:45→22:20)
[2019-05-26] MEDS: METHYLPREDNISOLONE SOD SUCC 40 MG/ML VIAL 1ML IV SCH ×2 (09:45→22:20)
[2019-05-26] MEDS: LINEZOLID 600 MG/D5W 300ML 300 ML IV SCH ×2 (09:50→22:20)
[2019-05-26] MEDS ORDERED: BUPIVACAINE HCL 0.5% INJ 30 ML VIAL INJ ONE (10:45)
[2019-05-26] MEDS ORDERED: BACITRACIN ZINC 15 GM OINT ONE (10:45)
[2019-05-26] MEDS ORDERED: BACITRACIN 50,000 UNIT VIAL ONE (10:45)
--- NOTE | 2019-05-26 11:35 | NUR ---
NOTIFIED NURSE PRACTITIONER PATIENT BLOOD SUGAR 360 AT 1135 AND GIVEN 16 UNITS OF SLIDING SCALE. PATIENT NPO FOR SURGERY. RECEIVED ORDERS TO CALL THE OR AND NOTIFY THEM SO THEY CAN CHECK BLOOD SUGAR AND ADDRESS IT IF BLOOD SUGAR DROPS.
[2019-05-26] MEDS ORDERED: ONDANSETRON HCL 4 MG ORAL DISINTEGRATING TAB PO PRN (11:45)
--- NOTE | 2019-05-26 15:18 | NUR ---
Pt was gone for procedure. Will visit in the AM.
--- NOTE | 2019-05-26 15:20 | NUR ---
I+D COMPLETE CALLED MALAIKA WITH [facility] FOR ROOM NUMBER NURSE AYESHA CALLING SARAHI FOR DC ORDERS
--- NOTE | 2019-05-26 16:20 | NUR ---
PT LISTED MCR PART A AND B ON FACE SHEET HOWEVER BAR NOTES DOCUMENT THAT PT ONLY HAS MCR PART A MALAIKA WITH [facility] HAS TO NOTIFY EACH DR ON PT'S CASE OF THIS AND MAKE SURE THEY AGREE TO FOLLOW PT AT [facility] AWAIT APPROVAL FOR TRANSFER DR CRUZ AWARE OF ABOVE DELAY PLAN TRANSFER IN AM
[2019-05-26] MEDS: POTASSIUM CHLORIDE 20 MEQ TAB CR PO SCH (17:21)
[2019-05-26] MEDS: FOLIC ACID 1 MG TAB PO SCH (17:21)
[2019-05-26] MEDS: MULTIVITAMINS/MINERALS TAB PO SCH (17:22)
--- NOTE | 2019-05-26 17:41 | Progress Note ---
DATE: 05/26/2019 Cardiology Progress Note SUBJECTIVE: No major events overnight. OBJECTIVE: VITAL SIGNS: Temperature afebrile, pulse 66, respiratory rate 19, blood pressure 117/63, and saturating 98% on room air. GENERAL: Middle-aged man in no acute distress, obese. CARDIOVASCULAR: Regular rate and rhythm. No murmurs, rubs, or gallops. LUNGS: Clear to auscultation bilaterally. ABDOMEN: Soft, nontender, and nondistended. Obese. EXTREMITIES: 1+ pitting edema. Dressing in place in bilateral lower extremities. Multiple small fluid-filled blisters on bilateral hands. CARDIOVASCULAR MEDICATIONS: Reviewed. LABORATORY DATA: Reviewed. TELEMETRY DATA: Reviewed, shows normal sinus rhythm. ASSESSMENT: 1. Atrial flutter with rapid ventricular response, currently in sinus rhythm. 2. Newly diagnosed severe systolic congestive heart failure. 3. Osteomyelitis. 4. Left lower extremity cellulitis. 5. Hyponatremia. 6. Diabetes. 7. Obesity. RECOMMENDATIONS: Remains in sinus rhythm. Continue current cardiovascular medications. Based on his CHADS-VASc 2 score, the patient will need full-dose anticoagulation upon discharge. Once his infection improves, he will need a cardiac catheterization to evaluate for coronary artery disease as a cause of his congestive heart failure prior to discharge. Thank you for this consult. We will continue to follow. MD JUAN JOSE Castorena/CE /[id number]
--- NOTE | 2019-05-26 18:51 | Operative Report ---
DATE OF PROCEDURE: 05/26/2019 SURGEON: Yoselyn Worrell DPM PUBLICATIONS INSPECTOR: None. PREOPERATIVE DIAGNOSES: 1. Right ulcer, grade 3. 2. Left abscess with ulcers, grade 3, dorsal aspect of the foot, lateral aspect of the foot and medial aspect of the foot. 3. Diabetes with neuropathy. 4. Peripheral vascular disease. 5. Newly diagnosed cirrhosis. 6. Vasculitis. 7. Streptococcus D bacteremia with positive blood cultures. POSTOPERATIVE DIAGNOSES: 1. Right ulcer, grade 3. 2. Left abscess with ulcers, grade 3, dorsal aspect of the foot, lateral aspect of the foot and medial aspect of the foot. 3. Diabetes with neuropathy. 4. Peripheral vascular disease. 5. Newly diagnosed cirrhosis. 6. Vasculitis. 7. Streptococcus D bacteremia with positive blood cultures. PROCEDURE DONE: Debridement to right and left foot down to bone with culture and sensitivities. COMPLICATIONS: None. HEMOSTASIS: None. CONDITION: Stable. PROCEDURE IN DETAIL: Under mild sedation, the patient was brought to the operating room, placed on the operating table in supine position. Following IV sedation, anesthesia was obtained. At this point, the right foot was scrubbed, prepped, and draped in usual aseptic manner and the leg was lowered to the table. Attention was directed to the right foot 1st where utilizing a combination of 15 blade, a bone rongeur and Metzenbaum. All nonviable tissue was removed down to the level of the bone. Culture and sensitivities were taken on the wound and was sent for pathology. Both ulcers on the right lateral aspect were debrided down to the level of bone to clean viable tissue. After debridement, 100% viable tissue noted with bone exposed at the right lateral malleolus. On the left secondary to the vasculitis he has developed abscesses on the dorsal aspect of the foot, the medial aspect of the foot and at the ankle joint. Utilizing sharp dissection, the abscesses were drained. A large amount of purulence was obtained from the area. The area was debrided down to clean viable tissue. The area was then flushed with copious irrigation, culture, sensitivity were taken of the area. At this point, the bilateral lower extremities wounds were packed with iodoform. Wet-to-dry was applied with Kerlix and an Fox bandage. The patient tolerated the procedure well. The patient will be readmitted back into the hospital. He is to be nonweightbearing to the right, partial weightbearing to the left. At this point, the right was 100% granular after debridement, but the left had a large amount of purulence to the area and nonviable tissue. He has large wounds medially, dorsally and at the ankle. The patient was readmitted back into the hospital. He is on IV antibiotics by Infectious Disease. He is going to be transferred to [facility]. He is going to need evaluation by hyperbaric for the osteomyelitis and diabetic foot ulcers, grade 3. My prognosis is guarded at this point secondary to the history of noncompliance, the comorbidities and the length that the ulcers have been present. I will continue to follow. IRA Xiao/CE /[id number]
[2019-05-26] MEDS ORDERED: FENTANYL CITRATE/PF 100MCG/2 ML INJ ONE (19:05)
[2019-05-26] MEDS ORDERED: MIDAZOLAM HCL 2 MG/2 ML VIAL ONE (19:05)
[2019-05-26] MEDS: LEVOFLOXACIN 500MG/D5W 100ML 100 ML IV SCH (22:19)
--- NOTE | 2019-05-26 23:08 | NUR ---
SPOKE TO GEOVANI WITH [facility]. PATIENT GIVEN ROOM # [id number]. GEOVANI SAID OKAY TO CALL REPORT IN THE MORNING 05/27/19. EXPLAINED TO GEOVANI THAT PATIENT DOCTOR WANTED PATIENT TO STAY UNTIL TOMORROW 05/27/19. BECAUSE THE PATIENT WAS POST OP DAY ONE. ACCORDING TO GEOVANI WITH [facility] BED WILL STILL BE AVAILABLE ON 05/27/19 FOR THE PATIENT. PASSED ALL THE ABOVE INFORMATION TO PM NURSE.
[2019-05-27] MEDS: METOPROLOL TARTRATE 50 MG TAB PO SCH ×3 (00:08→12:19)
[2019-05-27 03:00] VITALS: BP 124/76
[2019-05-27] MEDS: PANTOPRAZOL 40MG/SOD CHL 0.9% 50 ML IV SCH ×2 (03:30→08:30)
[2019-05-27 03:55] LABS: BASOPHILS % 0.1 % (0.0-1.0); HEMATOCRIT 25.8 % (38.2-49.6); HEMOGLOBIN 8.6 g/dL (14.0-18.0); LYMPHOCYTES # (AUTO) 0.6 (1.0-3.2); LYMPHOCYTES % 5.4 % (18.0-39.1); MEAN CORPUSCULAR HEMOGLOBIN 29.4 pg (28-32); MEAN CORPUSCULAR HGB CONC 33.3 g/dL (31-35); MEAN CORPUSCULAR VOLUME 88.1 fL (81-99); MONOCYTES # (AUTO) 0.4 (0.2-0.8); MONOCYTES % 3.4 % (4.4-11.3); NEUTROPHILS # (AUTO) 9.4 (2.1-6.9); NEUTROPHILS % 90.2 % (38.7-80.0); PLATELET COUNT 194 x10e3/uL (140-360); RED BLOOD COUNT 2.93 x10e6/uL (4.3-5.7); RED CELL DISTRIBUTION WIDTH 14.3 % (11.7-14.4)
[2019-05-27 04:20] LABS: ANION GAP 10.3 mmol/L (8-16); BLOOD UREA NITROGEN 39 mg/dL (7-26); BUN/CREATININE RATIO 38 (6-25); CALCIUM 7.6 mg/dL (8.4-10.2); CARBON DIOXIDE 26 mmol/L (22-29); CHLORIDE 98 mmol/L (98-107); CREATININE, SERUM 1.02 mg/dL (0.72-1.25); EST GLOMERULAR FILTRATION RATE > 60 ML/MIN (60-); GLUCOSE 310 mg/dL (74-118); POTASSIUM 4.3 mmol/L (3.5-5.1); SODIUM 130 mmol/L (136-145)
[2019-05-27 05:46] VITALS: BP 110/60
[2019-05-27 08:00] VITALS: BP_SYST 85
[2019-05-27] MEDS: INSULIN LISPRO 100 UNIT/1 ML 3ML VIAL SQ SCH ×2 (08:00→12:12)
[2019-05-27] MEDS: FAMOTIDINE 20 MG TAB PO SCH (08:29)
[2019-05-27] MEDS: SUCRALFATE 1 GM TAB PO SCH ×2 (08:29→12:15)
[2019-05-27] MEDS: METHYLPREDNISOLONE SOD SUCC 40 MG/ML VIAL 1ML IV SCH (08:40)
[2019-05-27] MEDS: FUROSEMIDE INJ 10 MG/ML 4 ML VIAL IV SCH (08:40)
[2019-05-27] MEDS: LINEZOLID 600 MG/D5W 300ML 300 ML IV SCH (09:02)
--- NOTE | 2019-05-27 09:48 | NUR ---
MOT received from Antonietta Michelle with [facility]. [address] [id number] Yousif Wilkes to attend DAVID FaithO MOT completed and placed in pt's chart. CLAUDIA Higuera was notified of bed assignment.
--- NOTE | 2019-05-27 10:30 | NUR ---
Notified Petty Ramírez patients' blood sugar 360 and also to inform her patient reported he takes metformin, and glipizide, but he does not remember the dose he takes, received orders to call patient's preferred pharmacy, and ask about the glipizide dose and resume his medication, as for metformin do not start.
[2019-05-27] MEDS: ASCORBIC ACID 500 MG TAB PO SCH (10:40)
[2019-05-27] MEDS: ZINC SULFATE 220 MG CAP PO SCH (10:40)
[2019-05-27] MEDS: OYST-CAL-D 500MG TABLET PO SCH (10:40)
[2019-05-27] MEDS: MAGNESIUM OXIDE 400 MG TAB PO SCH (10:45)
[2019-05-27] MEDS: FOLIC ACID 1 MG TAB PO SCH (11:11)
[2019-05-27] MEDS: POTASSIUM CHLORIDE 20 MEQ TAB CR PO SCH (11:12)
[2019-05-27] MEDS: MULTIVITAMINS/MINERALS TAB PO SCH (11:42)
[2019-05-27] MEDS ORDERED: GLIPIZIDE 5 MG TAB ER PO SCH (17:00)
[2019-05-27] MEDS ORDERED: GLIPIZIDE 2.5 MG TABCR PO SCH (17:00)
--- NOTE | 2019-05-28 04:34 | Discharge Summary ---
ADMISSION DIAGNOSES: Bilateral foot wound and cellulitis with possible OM of the right foot with sepsis, systolic congestive heart failure, presumed acute atrial fibrillation, type 2 diabetes, ambulatory dysfunction, morbid obesity, hyponatremia. DISCHARGE DIAGNOSES: Bilateral foot wound and cellulitis with possible OM of the right foot with sepsis, systolic congestive heart failure, presumed acute atrial fibrillation, type 2 diabetes, ambulatory dysfunction, morbid obesity, hyponatremia plus right foot osteomyelitis and newly diagnosed systolic congestive heart failure. HISTORY: The patient has a history of type 2 diabetes. SURGICAL HISTORY: Right foot TMA. FAMILY HISTORY: Noncontributory. SOCIAL HISTORY: Noncontributory. HOSPITAL COURSE: A 54-year-old male, complains of right foot wounds that he is having the TMA a couple of years ago. He ambulates with a cane and puts a lot of pressure on his medial right foot. He says his coal handler, Dr. Lopez, gave two unknown antibiotics, but the wound continued to worsen. The patient complains of intermittent bleeding, but denies fever pain and does his own dressing changes. He also complains of left foot cellulitis that began around May 15. On admission, the patient had an x-ray of bilateral feet that showed soft tissue defect on the plantar aspect of the lateral right foot with subcutaneous air and periosteal reaction of the underlying bone. Findings raise concern for underlying osteomyelitis. Deformity of the left 2nd metatarsal head with associated MTP joint widening possibly related to remote trauma. MRI of the foot showed findings compatible with acute/active osteomyelitis involving the tip of the lateral malleolus. Findings may reflect chronic osteomyelitis involving the residual portion of the 5th metatarsal bone. Neuropathic arthroplasty most notably severe of the subtalar joint. The patient then had a right arm PICC inserted due to long-term antibiotic use. The patient developed nausea and vomiting, so a CT of the abdomen and pelvis was done. He also developed diarrhea. CT showed findings compatible with inflammatory duodenitis or peptic ulcer disease involving the duodenum. No perforation or drainable fluid collection. Suspected hepatic cirrhosis with portal hypertension, evidenced by ascites and splenomegaly, cholelithiasis versus gallbladder sludge, nonobstructing left renal calculus. GI was then consulted. The patient's right foot wound culture came back positive for ESBL, Staph, Enterococcus, and Strep group B. Blood cultures were negative. Final echo showed an EF between 20% to 25% with left ventricular hypertrophy. EKG initially showed normal sinus with intermittent atrial flutter with variable AV block. Cardiology was then consulted. Bilateral lower extremity arterial and venous Dopplers were done with no DVTs or arterial stenosis noted. The patient was started on Lasix and metoprolol for the atrial fibrillation and CHF. His A1c was 8.8%. The patient started on clindamycin and Levaquin per Infectious Disease recommendation. The patient had two reactions to two different antibiotics. The patient then had an EGD on 05/24 that showed distal esophagitis, mild; small sliding hiatal hernia, moderately severe gastritis, and severe duodenitis, possible ischemia. The patient started on Protonix drip and Carafate t.i.d. per GI recommendation. The patient then underwent bilateral foot debridement on 05/26, per Dr. Lopez. 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 Otherwise, he does not want to follow any further recommendations for amputation. Vital signs are stable. The patient is afebrile. DISCHARGE MEDICATIONS: The patient will be discharged to [place] for long-term antibiotic use and the same physicians will follow him at [place]. Vital signs stable. The patient is afebrile. Dictated by Petty Ramírez NP MD EMA Bloom/CE /[id number]
== END 2019-05-27 13:05 | DRG 853 ==
LOC: ER 10:48 → ERHOLD 13:49 → ICU 16:27 → IMCU 05-22 23:15
PROVIDERS: ADMIT Internal Medicine; ATTEND Internal Medicine
PROC: 02HV33Z Insertion of Infusion Device into Superior Vena Cava, Percutaneous Approach (ICD-10-PCS; 2019-05-21)
PROC: B548ZZA Ultrasonography of Superior Vena Cava, Guidance (ICD-10-PCS; 2019-05-21)
PROC: 0DB68ZX Excision of Stomach, Via Natural or Artificial Opening Endoscopic, Diagnostic (ICD-10-PCS; 2019-05-24)
PROC: 0DB98ZX Excision of Duodenum, Via Natural or Artificial Opening Endoscopic, Diagnostic (ICD-10-PCS; principal; 2019-05-24 17:58)
PROC: 0QBJ0ZZ Excision of Right Fibula, Open Approach (ICD-10-PCS; 2019-05-26)
PROC: 0JBR0ZZ Excision of Left Foot Subcutaneous Tissue and Fascia, Open Approach (ICD-10-PCS; 2019-05-26)
DX: A40.1 Sepsis due to streptococcus, group B (principal); I50.23 Acute on chronic systolic (congestive) heart failure; I13.0 Hypertensive heart and chronic kidney disease with heart failure and stage 1 through stage 4 chronic kidney disease, or unspecified chronic kidney disease; M86.171 Other acute osteomyelitis, right ankle and foot; E87.1 Hypo-osmolality and hyponatremia; I48.92 Unspecified atrial flutter; L03.116 Cellulitis of left lower limb; K27.3 Acute peptic ulcer, site unspecified, without hemorrhage or perforation; D69.0 Allergic purpura; E11.52 Type 2 diabetes mellitus with diabetic peripheral angiopathy with gangrene; I96 Gangrene, not elsewhere classified; E11.69 Type 2 diabetes mellitus with other specified complication; Z79.4 Long term (current) use of insulin; E11.22 Type 2 diabetes mellitus with diabetic chronic kidney disease; N18.9 Chronic kidney disease, unspecified; I48.91 Unspecified atrial fibrillation; E66.01 Morbid (severe) obesity due to excess calories; Z68.39 Body mass index [BMI] 39.0-39.9, adult; T36.1X5A Adverse effect of cephalosporins and other beta-lactam antibiotics, initial encounter; I49.9 Cardiac arrhythmia, unspecified; E11.42 Type 2 diabetes mellitus with diabetic polyneuropathy; K29.80 Duodenitis without bleeding; K44.9 Diaphragmatic hernia without obstruction or gangrene; K29.70 Gastritis, unspecified, without bleeding; Z89.431 Acquired absence of right foot; Z91.19 Patient's noncompliance with other medical treatment and regimen; E11.610 Type 2 diabetes mellitus with diabetic neuropathic arthropathy; K80.20 Calculus of gallbladder without cholecystitis without obstruction; K74.60 Unspecified cirrhosis of liver; T36.8X5A Adverse effect of other systemic antibiotics, initial encounter; Y92.230 Patient room in hospital as the place of occurrence of the external cause; E11.65 Type 2 diabetes mellitus with hyperglycemia; B95.2 Enterococcus as the cause of diseases classified elsewhere; B95.8 Unspecified staphylococcus as the cause of diseases classified elsewhere; Z16.12 Extended spectrum beta lactamase (ESBL) resistance
CPT/HCPCS: 36415; 36569; 36600; 43239; 71045; 74177; 80048; 80053; 80202; 82270; 82550; 82553; 82607; 82728; 82746; 82805; 82948; 83036; 83540; 83605; 83690; 83735; 83880; 84100; 84439; 84443; 84466; 84484; 85025; 85045; 85610; 85651; 85730; 86140; 87040; 87045; 87071; 87075; 87102; 87186; 87205; 87206; 87493; 88304; 88305; 88312; 93005; 93306; 93925; 93970; 96372; 99285; J0610; J0692; J1160; J1650; J1940; J1956; J2020; J2250; J2405; J2920; J3010; J3370; J7030; J7050; Q9967